=== PATIENT | male | born 1940 | race Caucasian/White ===

== ENCOUNTER 2022-08-09 17:15 | Inpatient (IN) ==
[2022-08-09] MEDS ORDERED: ACETAMINOPHEN 1,000 MG/100 ML VIAL IV STA (19:08)
[2022-08-09 19:30] LABS: Basophils # (auto) 0.04 K/uL (0-0.2); Basophils % (auto) 0.5 %; Hematocrit (blood only) 38.2 % (40.1-51.0); Immature Granulocytes # (auto) 0.03 K/uL (0.00-0.02); Immature Granulocytes % (auto) 0.4 %; Lymphocytes # (auto) 0.28 K/uL (1.2-3.4); Lymphocytes % (auto) 3.7 %; Mean Corpuscular Hemoglobin 35.2 pg (25.0-34.0); Mean Corpuscular Volume 103.5 fL (80.0-100.0); Mean Platelet Volume 10.6 fL (9.4-12.4); Monocytes # (auto) 0.58 K/uL (0.24-0.82); Monocytes % (auto) 7.7 %; Neutrophils # (auto) 6.62 K/uL (1.4-6.5); Neutrophils % (auto) 87.7 %; Platelet Count 133 K/uL (130-400); RDW Coefficient of Variation 12.8 % (11.5-14.5); RDW Standard Deviation 48.2 fL (36.4-46.3); Red Blood Count 3.69 M/uL (4.63-6.08); White Blood Count 7.55 K/ul (4.8-10.8)
[2022-08-09 19:42] LABS: INR 1.1 (0.9-1.1); Partial Thromboplastin Ratio 1.1; Partial Thromboplastin Time 29.1 Seconds (21.0-31.0); Prothrombin Time 11.9 Seconds (9.0-12.0)
[2022-08-09 19:43] LABS: Albumin Globulin Ratio 1.2 (0.9-2); Albumin Level 3.4 gm/dl (3.4-5.0); BUN Creatinine Ratio 18.5 (10-20); Bilirubin,Total 1.2 mg/dl (0.2-1.0); Calcium 9.5 mg/dl (8.5-10.1); Creatinine Clr Calc Pharmacy 54.4 ml/min; Est GFR (African American) 50.8 ml/min; Est GFR (Non-African American) 43.9 ml/min; Globulin 2.8 gm/dl (2.5-4.0); Magnesium 1.9 mg/dl (1.7-2.4); Potassium 4.3 mmol/L (3.5-5.1); Total Protein 6.2 gm/dl (6.0-8.3)
[2022-08-09 19:59] LABS: Appearance Urine Clear (Clear); Bacteria Urine Automated Negative (Negative); Bilirubin Urine Negative (Negative); Blood Urine 3+ (Negative); Color Urine Dark Yellow; Epithelial Cell Urine Auto >30 /lpf (0-5); Glucose Urine UA Negative (Negative); Ketones Urine Trace (Negative); Leukocyte Esterase Urine Trace (Negative); Nitrite Urine Negative (Negative); Protein Urine 4+ (Negative); RBC Urine Automated >30 /hpf (0-4); Urobilinogen Urine Negative (Negative)
--- NOTE | 2022-08-09 20:03 | CT Scan Report ---
CT head/brain wo con CLINICAL HISTORY: 82 years-old Male with confusion. Acutely altered mental status TECHNIQUE: Multiple axial CT images of the head were obtained without contrast. A dose lowering tech nique was utilized adhering to the principles of ALARA. CT DOSE: 767.83 mGy.cm COMPARISON: None. FINDINGS: No acute intracranial hemorrhage, midline shift, intracranial mass, hydrocephalus, territorial ischem ia or abnormal extra-axial collection. Age-related involutional changes with mild ex vacuo ventriculo megaly. White matter hypodensities suggest chronic microvascular ischemic disease. Cerebral vascular calcifications. Ill-defined 1.5 cm hypoattenuating focus is noted within the right frontal lobe coron a radiata on image 28. 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 Chronic lacunar infarct s of the left basal ganglia and cerebellar hemisphere. The calvarium is intact. 2.2 cm focus of polypoid mucosal thickening within the right maxillary sinu s. The mastoid air cells are clear. Prior bilateral lens repair. IMPRESSION: 1. No acute intracranial hemorrhage, midline shift or acute territorial infarct. 2. Involutional changes with chronic microvascular ischemic disease and chronic lacunar infarcts. 3. 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 4. Chronic right temporoparietal infarct. ACT 112: Negative or not required by law. The above report was generated using voice recognition software. It may contain grammatical, syntax o r spelling errors. Electronically signed by: Tin Smith M.D. 08/09/2022 8:00 PM
--- NOTE | 2022-08-09 20:14 | Emergency Department Note ---
History of Present Illness General Chief complaint: Illness Stated complaint: AMS Time Seen by Provider: 08/09/22 18:25 Source: patient, family and EMS Mode of arrival: EMS Limitations: no limitations History of Present Illness Provider complaint: Weakness, confusion, fever This is an 82-year-old male presents emergency department due to concern for confusion, weakness, possible aspiration per staff report to EMS. Patient does reside at a long-term care facility. Patient's son did present to bedside, and reports he does have history of vascular dementia and does seem slightly more confused compared to prior. Patient alert and answers questions appropriately at bedside. He denies any concern for pain or weakness. Patient does take a diuretic for lower extremity swelling, and states he feels thirsty. Patient denies any sense of feeling hot or cold although was noted to have a fever on arrival here. Staff was concerned for possible aspiration as patient was noted to have his head down over his food and seemed slower to arouse than normal. Son denies any recent changes in the patient's medications or any known illness going around the facility where he resides. Pt seen during a time of high acuity and national emergency pandemic while wearing PPE. Home Medications Medication Instructions Recorded Confirmed Type acetaminophen 325 mg tablet 650 mg PO Q4 PRN Fever Or Pain 08/09/22 08/09/22 History apixaban 5 mg tablet (Eliquis) 5 mg PO BID 08/09/22 08/09/22 History cholecalciferol (vitamin D3) 50 50 mcg PO DAILY 08/09/22 08/09/22 History mcg (2,000 unit) tablet (Vitamin D3) clopidogrel 75 mg tablet 75 mg PO DAILY 08/09/22 08/09/22 History fluoxetine 10 mg capsule 10 mg PO DAILY 08/09/22 08/09/22 History fluticasone propionate 50 1 spray intranasal BID 08/09/22 08/09/22 History mcg/actuation nasal spray,suspension furosemide 20 mg tablet 20 mg PO 3XWK 08/09/22 08/09/22 History furosemide 20 mg tablet 20 mg PO DAILY 08/09/22 08/09/22 History ketoconazole 2 % shampoo 1 applic topical 3XWK 08/09/22 08/09/22 History ketoconazole 2 % topical cream 1 applic topical BID PRN flares 08/09/22 08/09/22 History lisinopril 5 mg tablet 5 mg PO DAILY 08/09/22 08/09/22 History metoprolol succinate 25 mg 25 mg PO BID 08/09/22 08/09/22 History tablet,extended release 24 hr nitroglycerin 0.4 mg sublingual 0.4 mg sublingual UD PRN Chest Pain 08/09/22 08/09/22 History tablet rosuvastatin 10 mg tablet 10 mg PO HS 08/09/22 08/09/22 History spironolactone 100 mg tablet 100 mg PO DAILY 08/09/22 08/09/22 History Allergies Allergy/AdvReac Type Severity Reaction Status Date / Time No Known Allergies Allergy Unverified 08/09/22 22:43 Past Med/Surg History Social History Smoking Status: Never smoker Preferred Language: Tajik Feels Safe at Home: Yes Review of Systems A total of 10 systems reviewed and were otherwise negative All systems reviewed & are unremarkable except as noted in HPI & below Physical Exam Vital Signs Vital Signs - 24 hr 08/09/22 17:38 08/09/22 19:43 08/09/22 19:43 Temperature 38.2 C H Temperature Source Oral Pulse Rate 54 L Pulse Rate [Apical] Pulse Rate from SpO2 Sensor Pulse Rhythm [Apical] Pulse Strength Normal Respiratory Rate 20 Respiratory Effort / Characteristics Non-Labored Non-Labored Respiratory Depth Normal Normal Respiratory Pattern Regular Blood Pressure 120/60 Blood Pressure [Right Arm] Blood Pressure Mean 80 Blood Pressure Mean [Right Arm] Blood Pressure Position Lying Pulse Oximetry 95 98 Oxygen Delivery Method Room Air Room Air Sepsis Recent Fever Within 48 Hours Yes Sepsis New/Unexplained Change in Mental Status No Sepsis Action Taken by Nursing No Action Required 08/09/22 17:46 08/09/22 18:00 08/09/22 18:30 Temperature Temperature Source Pulse Rate 60 62 60 Pulse Rate [Apical] Pulse Rate from SpO2 Sensor 57 L 63 60 Pulse Rhythm [Apical] Pulse Strength Respiratory Rate 20 25 H 21 Respiratory Effort / Characteristics Respiratory Depth Respiratory Pattern Blood Pressure Blood Pressure [Right Arm] Blood Pressure Mean Blood Pressure Mean [Right Arm] Blood Pressure Position Pulse Oximetry 94 74 L 96 Oxygen Delivery Method Sepsis Recent Fever Within 48 Hours Sepsis New/Unexplained Change in Mental Status Sepsis Action Taken by Nursing 08/09/22 19:00 08/09/22 19:30 08/09/22 20:37 Temperature Temperature Source Pulse Rate 60 62 Pulse Rate [Apical] 60 Pulse Rate from SpO2 Sensor 61 Pulse Rhythm [Apical] Regular Pulse Strength Respiratory Rate 21 20 25 H Respiratory Effort / Characteristics Respiratory Depth Normal Respiratory Pattern Blood Pressure 122/64 Blood Pressure [Right Arm] 100/63 Blood Pressure Mean 83 Blood Pressure Mean [Right Arm] 75 Blood Pressure Position Pulse Oximetry 99 94 Oxygen Delivery Method Room Air Sepsis Recent Fever Within 48 Hours Sepsis New/Unexplained Change in Mental Status Sepsis Action Taken by Nursing 08/09/22 20:00 08/09/22 20:30 08/09/22 20:37 Temperature Temperature Source Pulse Rate 61 60 Pulse Rate [Apical] Pulse Rate from SpO2 Sensor 61 60 Pulse Rhythm [Apical] Pulse Strength Respiratory Rate 24 16 Respiratory Effort / Characteristics Respiratory Depth Respiratory Pattern Blood Pressure 100/63 Blood Pressure [Right Arm] Blood Pressure Mean 75 Blood Pressure Mean [Right Arm] Blood Pressure Position Pulse Oximetry 95 95 Oxygen Delivery Method Sepsis Recent Fever Within 48 Hours Sepsis New/Unexplained Change in Mental Status Sepsis Action Taken by Nursing 08/09/22 20:37 08/09/22 21:00 08/09/22 21:00 Temperature Temperature Source Pulse Rate 62 60 Pulse Rate [Apical] Pulse Rate from SpO2 Sensor 60 60 Pulse Rhythm [Apical] Pulse Strength Respiratory Rate 25 H 22 Respiratory Effort / Characteristics Respiratory Depth Respiratory Pattern Blood Pressure 97/62 L Blood Pressure [Right Arm] Blood Pressure Mean 73 Blood Pressure Mean [Right Arm] Blood Pressure Position Pulse Oximetry 92 92 Oxygen Delivery Method Sepsis Recent Fever Within 48 Hours Sepsis New/Unexplained Change in Mental Status Sepsis Action Taken by Nursing 08/09/22 21:30 08/09/22 21:31 08/09/22 21:31 Temperature Temperature Source Pulse Rate 64 Pulse Rate [Apical] Pulse Rate from SpO2 Sensor 60 64 Pulse Rhythm [Apical] Pulse Strength Respiratory Rate 23 24 Respiratory Effort / Characteristics Respiratory Depth Respiratory Pattern Blood Pressure 94/57 L Blood Pressure [Right Arm] Blood Pressure Mean 69 Blood Pressure Mean [Right Arm] Blood Pressure Position Pulse Oximetry 94 94 Oxygen Delivery Method Sepsis Recent Fever Within 48 Hours Sepsis New/Unexplained Change in Mental Status Sepsis Action Taken by Nursing 08/09/22 22:00 08/09/22 21:41 08/09/22 22:00 Temperature Temperature Source Pulse Rate 66 Pulse Rate [Apical] 63 Pulse Rate from SpO2 Sensor Pulse Rhythm [Apical] Regular Pulse Strength Respiratory Rate 19 24 Respiratory Effort / Characteristics Respiratory Depth Respiratory Pattern Blood Pressure 100/69 Blood Pressure [Right Arm] 111/60 Blood Pressure Mean 79 Blood Pressure Mean [Right Arm] 77 Blood Pressure Position Pulse Oximetry 94 Oxygen Delivery Method Sepsis Recent Fever Within 48 Hours Sepsis New/Unexplained Change in Mental Status Sepsis Action Taken by Nursing 08/09/22 22:32 08/09/22 23:01 08/09/22 23:07 Temperature Temperature Source Pulse Rate Pulse Rate [Apical] Pulse Rate from SpO2 Sensor 71 Pulse Rhythm [Apical] Pulse Strength Respiratory Rate Respiratory Effort / Characteristics Respiratory Depth Respiratory Pattern Blood Pressure 149/102 H 111/60 Blood Pressure [Right Arm] Blood Pressure Mean 117 77 Blood Pressure Mean [Right Arm] Blood Pressure Position Pulse Oximetry 96 Oxygen Delivery Method Sepsis Recent Fever Within 48 Hours Sepsis New/Unexplained Change in Mental Status Sepsis Action Taken by Nursing 08/09/22 23:30 08/09/22 23:32 08/09/22 23:32 Temperature Temperature Source Pulse Rate 66 62 Pulse Rate [Apical] Pulse Rate from SpO2 Sensor 65 62 Pulse Rhythm [Apical] Pulse Strength Respiratory Rate 26 H 19 Respiratory Effort / Characteristics Respiratory Depth Respiratory Pattern Blood Pressure 115/71 Blood Pressure [Right Arm] Blood Pressure Mean 85 Blood Pressure Mean [Right Arm] Blood Pressure Position Pulse Oximetry 97 97 Oxygen Delivery Method Sepsis Recent Fever Within 48 Hours Sepsis New/Unexplained Change in Mental Status Sepsis Action Taken by Nursing 08/10/22 00:00 08/10/22 00:00 08/10/22 00:30 Temperature Temperature Source Pulse Rate 62 72 Pulse Rate [Apical] Pulse Rate from SpO2 Sensor 62 72 Pulse Rhythm [Apical] Pulse Strength Respiratory Rate 20 13 Respiratory Effort / Characteristics Respiratory Depth Respiratory Pattern Blood Pressure 121/68 Blood Pressure [Right Arm] Blood Pressure Mean 85 Blood Pressure Mean [Right Arm] Blood Pressure Position Pulse Oximetry 95 98 Oxygen Delivery Method Sepsis Recent Fever Within 48 Hours Sepsis New/Unexplained Change in Mental Status Sepsis Action Taken by Nursing 08/10/22 01:00 08/10/22 01:01 08/10/22 01:01 Temperature Temperature Source Pulse Rate 60 62 Pulse Rate [Apical] Pulse Rate from SpO2 Sensor Pulse Rhythm [Apical] Pulse Strength Respiratory Rate 26 H 19 Respiratory Effort / Characteristics Respiratory Depth Respiratory Pattern Blood Pressure 120/63 Blood Pressure [Right Arm] Blood Pressure Mean 82 Blood Pressure Mean [Right Arm] Blood Pressure Position Pulse Oximetry Oxygen Delivery Method Sepsis Recent Fever Within 48 Hours Sepsis New/Unexplained Change in Mental Status Sepsis Action Taken by Nursing 08/10/22 01:30 Temperature Temperature Source Pulse Rate 68 Pulse Rate [Apical] Pulse Rate from SpO2 Sensor Pulse Rhythm [Apical] Pulse Strength Respiratory Rate 23 Respiratory Effort / Characteristics Respiratory Depth Respiratory Pattern Blood Pressure Blood Pressure [Right Arm] Blood Pressure Mean Blood Pressure Mean [Right Arm] Blood Pressure Position Pulse Oximetry Oxygen Delivery Method Sepsis Recent Fever Within 48 Hours Sepsis New/Unexplained Change in Mental Status Sepsis Action Taken by Nursing GENERAL: alert, well appearing, well nourished, no distress, non-toxic EYE EXAM: normal conjunctiva, PERRL and EOM's grossly intact OROPHARYNX: no exudate, no erythema, lips, buccal mucosa, and tongue normal and mucous membranes are moist NECK: supple, no nuchal rigidity, no adenopathy, non-tender LUNGS: Clear to auscultation. Normal chest wall mechanics, no w/r/r HEART: no murmurs, S1 normal and S2 normal ABDOMEN: abdomen soft, non-tender, normo-active bowel sounds, no masses, no rebound or guarding. BACK: Back is symmetrical on inspection and there is no deformity, no midline tenderness, no CVA tenderness. SKIN: no rashes and no bruising UPPER EXTREMITIES: upper extremities are grossly normal. FROM, nml pulses b/l. LOWER EXTREMITIES: 3+ b/l pitting edema. FROM, nml pulses b/l. NEURO EXAM: Normal sensorium, cranial nerves II-XII grossly intact, normal speech, no gross weakness of arms, no gross weakness of legs. Gross sensation intact. Course Administered Medications Discontinued Medications Acetaminophen (Ofirmev) 1,000 mg in 100 mls @ 400 mls/hr IV NOW STA Stop: 08/09/22 19:22 Last Infusion: 08/09/22 20:21 Dose: 0 mls/hr Documented By: Admin: 08/09/22 19:59 Dose: 400 mls/hr Documented By: DL Sodium Chloride (Nss 1000ml) 250 mls @ 999 mls/hr IV .Q16M ONE Stop: 08/09/22 21:52 Last Infusion: 08/09/22 23:26 Dose: 0 mls/hr Documented By: Admin: 08/09/22 23:09 Dose: 999 mls/hr Documented By: DL Cefepime HCl (Maxipime) 2,000 mg in 20 mls @ 5 mls/min IV NOW STA; Protocol Stop: 08/10/22 00:56 Last Admin: 08/10/22 01:04 Dose: 5 mls/min Documented By: DL Medical Decision Making Differential Diagnosis Differential Diagnosis includes but is not limited to dehydration, stroke, anemia, hypoglycemia, hyponatremia, hypernatremia, urinary tract infection, pneumonia, bronchitis, sepsis, gastroenteritis, additional abdominal pathology, metabolic abnormalities and infections. Medical Records Attestation: I reviewed the patient's medical records. Home Medications Current Medication List: was personally reviewed by me Laboratory Data Attestation: I reviewed the patient's lab results. Result diagrams: 08/09/22 17:40 08/09/22 17:40 Lab Results 08/09/22 08/09/22 08/09/22 Range/Units 17:40 17:40 17:40 WBC 7.55 (4.8-10.8) K/ul RBC 3.69 L (4.63-6.08) M/uL Hgb 13.0 L (14.0-18.0) g/dl Hct 38.2 L (40.1-51.0) % MCV 103.5 H (80.0-100.0) fL MCH 35.2 H (25.0-34.0) pg MCHC 34.0 (32.0-36.0) g/dL RDW Std Deviation 48.2 H (36.4-46.3) fL RDW Coeff of Tucker 12.8 (11.5-14.5) % Plt Count 133 (130-400) K/uL MPV 10.6 (9.4-12.4) fL Immature Gran % (Auto) 0.4 % Neut % (Auto) 87.7 % Lymph % (Auto) 3.7 % [place] % (Auto) 7.7 % Eos % (Auto) 0.0 % Baso % (Auto) 0.5 % Neut # (Auto) 6.62 H (1.4-6.5) K/uL Lymph # (Auto) 0.28 L (1.2-3.4) K/uL [place] # (Auto) 0.58 (0.24-0.82) K/uL Eos # (Auto) 0.00 (0-0.50) K/uL Baso # (Auto) 0.04 (0-0.2) K/uL Immature Gran # (Auto) 0.03 H (0.00-0.02) K/uL PT 11.9 (9.0-12.0) Seconds INR 1.1 (0.9-1.1) APTT 29.1 (21.0-31.0) Seconds PTT Ratio 1.1 POC pH (7.35-7.45) POC pCO2 (35-46) mmHg POC pO2 (80-95) mmHg POC HCO3 (19-24) eveline/L POC Total CO2 (24-31) mmol/L POC Base Excess (-9-1.8) eveline/L POC ABG O2 Sat (90-95) % Sodium 137 (136-145) mmol/L Potassium 4.3 (3.5-5.1) mmol/L Chloride 106 (98-107) mmol/L Carbon Dioxide 25 (21-32) mmol/L Anion Gap 6 (3-11) BUN 27 H (6-23) mg/dl Creatinine 1.46 H (0.6-1.4) mg/dl Est Cr Clr Drug Dosing 54.4 ml/min Est GFR ( Amer) 50.8 ml/min Est GFR (Non-Af Amer) 43.9 ml/min BUN/Creatinine Ratio 18.5 (10-20) Glucose 105 H (70-99(Fasting)) mg/dl Lactate (0.4-2.0) mmol/L Calcium 9.5 (8.5-10.1) mg/dl Magnesium 1.9 (1.7-2.4) mg/dl Total Bilirubin 1.2 H (0.2-1.0) mg/dl AST 24 (13-39) U/L ALT 20 (7-52) U/L Alkaline Phosphatase 85 (34-104) U/L Total Protein 6.2 (6.0-8.3) gm/dl Albumin 3.4 (3.4-5.0) gm/dl Globulin 2.8 (2.5-4.0) gm/dl Albumin/Globulin Ratio 1.2 (0.9-2) Procalcitonin (0-0.5) ng/ml Urine Color Urine Appearance (Clear) Urine pH (4.5-7.5) Ur Specific [place] (1.000-1.030) Urine Protein (Negative) Urine Glucose (UA) (Negative) Urine Ketones (Negative) Urine Blood (Negative) Urine Nitrite (Negative) Urine Bilirubin (Negative) Urine Urobilinogen (Negative) Ur Leukocyte Esterase (Negative) Urine WBC (Auto) (0-5) /hpf Urine RBC (Auto) (0-4) /hpf U Hyaline Cast (Auto) (0-5) /lpf U Epithel Cells (Auto) (0-5) /lpf Urine Bacteria (Auto) (Negative) Ur Renal Epithelial Cell Urine Yeast (None Prsent) Adenovirus (PCR) (NotDetected) B. pertussis DNA (PCR) (NotDetected) B.parapertussis DNA PCR (NotDetected) C. pneumoniae DNA (PCR) (NotDetected) Coronavirus OC43 (PCR) (NotDetected) Coronavirus HKU1 (PCR) (NotDetected) Coronavirus 229E (PCR) (NotDetected) SARS-CoV-2 (PCR) (NotDetected) Coronavirus NL63 (PCR) (NotDetected) Human Metapneumovir PCR (NotDetected) Influenza Type A (PCR) (NotDetected) Influenza Type B (PCR) (NotDetected) M. pneumoniae (PCR) (NotDetected) Parainfluenza 1 (PCR) (NotDetected) Parainfluenza 2 (PCR) (NotDetected) Parainfluenza 3 (PCR) (NotDetected) Parainfluenza 4 (PCR) (NotDetected) RSV (PCR) (NotDetected) Entero/Rhino (PCR) (NotDetected) 08/09/22 08/09/22 08/09/22 Range/Units 17:40 18:13 19:18 WBC (4.8-10.8) K/ul RBC (4.63-6.08) M/uL Hgb (14.0-18.0) g/dl Hct (40.1-51.0) % MCV (80.0-100.0) fL MCH (25.0-34.0) pg MCHC (32.0-36.0) g/dL RDW Std Deviation (36.4-46.3) fL RDW Coeff of Tucker (11.5-14.5) % Plt Count (130-400) K/uL MPV (9.4-12.4) fL Immature Gran % (Auto) % Neut % (Auto) % Lymph % (Auto) % [place] % (Auto) % Eos % (Auto) % Baso % (Auto) % Neut # (Auto) (1.4-6.5) K/uL Lymph # (Auto) (1.2-3.4) K/uL [place] # (Auto) (0.24-0.82) K/uL Eos # (Auto) (0-0.50) K/uL Baso # (Auto) (0-0.2) K/uL Immature Gran # (Auto) (0.00-0.02) K/uL PT (9.0-12.0) Seconds INR (0.9-1.1) APTT (21.0-31.0) Seconds PTT Ratio POC pH (7.35-7.45) POC pCO2 (35-46) mmHg POC pO2 (80-95) mmHg POC HCO3 (19-24) eveline/L POC Total CO2 (24-31) mmol/L POC Base Excess (-9-1.8) veeline/L POC ABG O2 Sat (90-95) % Sodium (136-145) mmol/L Potassium (3.5-5.1) mmol/L Chloride (98-107) mmol/L Carbon Dioxide (21-32) mmol/L Anion Gap (3-11) BUN (6-23) mg/dl Creatinine (0.6-1.4) mg/dl Est Cr Clr Drug Dosing ml/min Est GFR ( Amer) ml/min Est GFR (Non-Af Amer) ml/min BUN/Creatinine Ratio (10-20) Glucose (70-99(Fasting)) mg/dl Lactate 1.6 (0.4-2.0) mmol/L Calcium (8.5-10.1) mg/dl Magnesium (1.7-2.4) mg/dl Total Bilirubin (0.2-1.0) mg/dl AST (13-39) U/L ALT (7-52) U/L Alkaline Phosphatase (34-104) U/L Total Protein (6.0-8.3) gm/dl Albumin (3.4-5.0) gm/dl Globulin (2.5-4.0) gm/dl Albumin/Globulin Ratio (0.9-2) Procalcitonin 0.07 (0-0.5) ng/ml Urine Color Urine Appearance (Clear) Urine pH (4.5-7.5) Ur Specific [place] (1.000-1.030) Urine Protein (Negative) Urine Glucose (UA) (Negative) Urine Ketones (Negative) Urine Blood (Negative) Urine Nitrite (Negative) Urine Bilirubin (Negative) Urine Urobilinogen (Negative) Ur Leukocyte Esterase (Negative) Urine WBC (Auto) (0-5) /hpf Urine RBC (Auto) (0-4) /hpf U Hyaline Cast (Auto) (0-5) /lpf U Epithel Cells (Auto) (0-5) /lpf Urine Bacteria (Auto) (Negative) Ur Renal Epithelial Cell Urine Yeast (None Prsent) Adenovirus (PCR) Not Detected (NotDetected) B. pertussis DNA (PCR) Not Detected (NotDetected) B.parapertussis DNA PCR Not Detected (NotDetected) C. pneumoniae DNA (PCR) Not Detected (NotDetected) Coronavirus OC43 (PCR) Not Detected (NotDetected) Coronavirus HKU1 (PCR) Not Detected (NotDetected) Coronavirus 229E (PCR) Not Detected (NotDetected) SARS-CoV-2 (PCR) DETECTED A* (NotDetected) Coronavirus NL63 (PCR) Not Detected (NotDetected) Human Metapneumovir PCR Not Detected (NotDetected) Influenza Type A (PCR) Not Detected (NotDetected) Influenza Type B (PCR) Not Detected (NotDetected) M. pneumoniae (PCR) Not Detected (NotDetected) Parainfluenza 1 (PCR) Not Detected (NotDetected) Parainfluenza 2 (PCR) Not Detected (NotDetected) Parainfluenza 3 (PCR) Not Detected (NotDetected) Parainfluenza 4 (PCR) Not Detected (NotDetected) RSV (PCR) Not Detected (NotDetected) Entero/Rhino (PCR) Not Detected (NotDetected) 08/09/22 08/10/22 Range/Units 19:41 00:50 WBC (4.8-10.8) K/ul RBC (4.63-6.08) M/uL Hgb (14.0-18.0) g/dl Hct (40.1-51.0) % MCV (80.0-100.0) fL MCH (25.0-34.0) pg MCHC (32.0-36.0) g/dL RDW Std Deviation (36.4-46.3) fL RDW Coeff of Tucker (11.5-14.5) % Plt Count (130-400) K/uL MPV (9.4-12.4) fL Immature Gran % (Auto) % Neut % (Auto) % Lymph % (Auto) % [place] % (Auto) % Eos % (Auto) % Baso % (Auto) % Neut # (Auto) (1.4-6.5) K/uL Lymph # (Auto) (1.2-3.4) K/uL [place] # (Auto) (0.24-0.82) K/uL Eos # (Auto) (0-0.50) K/uL Baso # (Auto) (0-0.2) K/uL Immature Gran # (Auto) (0.00-0.02) K/uL PT (9.0-12.0) Seconds INR (0.9-1.1) APTT (21.0-31.0) Seconds PTT Ratio POC pH 7.44 (7.35-7.45) POC pCO2 31 L (35-46) mmHg POC pO2 83 (80-95) mmHg POC HCO3 21 (19-24) eveline/L POC Total CO2 22 L (24-31) mmol/L POC Base Excess -3.0 (-9-1.8) eveline/L POC ABG O2 Sat 97.0 H (90-95) % Sodium (136-145) mmol/L Potassium (3.5-5.1) mmol/L Chloride (98-107) mmol/L Carbon Dioxide (21-32) mmol/L Anion Gap (3-11) BUN (6-23) mg/dl Creatinine (0.6-1.4) mg/dl Est Cr Clr Drug Dosing ml/min Est GFR ( Amer) ml/min Est GFR (Non-Af Amer) ml/min BUN/Creatinine Ratio (10-20) Glucose (70-99(Fasting)) mg/dl Lactate (0.4-2.0) mmol/L Calcium (8.5-10.1) mg/dl Magnesium (1.7-2.4) mg/dl Total Bilirubin (0.2-1.0) mg/dl AST (13-39) U/L ALT (7-52) U/L Alkaline Phosphatase (34-104) U/L Total Protein (6.0-8.3) gm/dl Albumin (3.4-5.0) gm/dl Globulin (2.5-4.0) gm/dl Albumin/Globulin Ratio (0.9-2) Procalcitonin (0-0.5) ng/ml Urine Color Dark Yellow Urine Appearance Clear (Clear) Urine pH 6.0 (4.5-7.5) Ur Specific [place] 1.030 (1.000-1.030) Urine Protein 4+ H (Negative) Urine Glucose (UA) Negative (Negative) Urine Ketones Trace H (Negative) Urine Blood 3+ H (Negative) Urine Nitrite Negative (Negative) Urine Bilirubin Negative (Negative) Urine Urobilinogen Negative (Negative) Ur Leukocyte Esterase Trace H (Negative) Urine WBC (Auto) 1-5 (0-5) /hpf Urine RBC (Auto) >30 H (0-4) /hpf U Hyaline Cast (Auto) 10-30 H (0-5) /lpf U Epithel Cells (Auto) >30 H (0-5) /lpf Urine Bacteria (Auto) Negative (Negative) Ur Renal Epithelial Cell Not Reportable Urine Yeast Budding A (None Prsent) Adenovirus (PCR) (NotDetected) B. pertussis DNA (PCR) (NotDetected) B.parapertussis DNA PCR (NotDetected) C. pneumoniae DNA (PCR) (NotDetected) Coronavirus OC43 (PCR) (NotDetected) Coronavirus HKU1 (PCR) (NotDetected) Coronavirus 229E (PCR) (NotDetected) SARS-CoV-2 (PCR) (NotDetected) Coronavirus NL63 (PCR) (NotDetected) Human Metapneumovir PCR (NotDetected) Influenza Type A (PCR) (NotDetected) Influenza Type B (PCR) (NotDetected) M. pneumoniae (PCR) (NotDetected) Parainfluenza 1 (PCR) (NotDetected) Parainfluenza 2 (PCR) (NotDetected) Parainfluenza 3 (PCR) (NotDetected) Parainfluenza 4 (PCR) (NotDetected) RSV (PCR) (NotDetected) Entero/Rhino (PCR) (NotDetected) Imaging Data Radiologist's Impression: Chest X-Ray 08/09/22 19:03 XR chest 1V portable HISTORY: 82 years-old Male SEPSIS acute sepsis COMPARISON: None TECHNIQUE: AP view of the chest FINDINGS: Cardiac silhouette is enlarged. Left subclavian pacer/AICD. No pneumothorax, pleural effusion or overt pulmonary edema. Mild interstitial coarsening of the lung bases. Degenerative changes of the shoulders and spine. IMPRESSION: 1. Cardiomegaly without overt pulmonary edema. 2. Mild nonspecific interstitial coarsening of the lung bases favoring atelectasis. A mild pneumonitis could appear similarly. ACT 112: Negative or not required by law. The above report was generated using voice recognition software. It may contain grammatical, syntax or spelling errors. Electronically signed by: Tin Smith M.D. 08/09/2022 8:[address] 08/09/22 19:04 CT head/brain wo con CLINICAL HISTORY: 82 years-old Male with confusion. Acutely altered mental status TECHNIQUE: Multiple axial CT images of the head were obtained without contrast. A dose lowering technique was utilized adhering to the principles of ALARA. CT DOSE: 767.83 mGy.cm COMPARISON: None. FINDINGS: No acute intracranial hemorrhage, midline shift, intracranial mass, hydrocephalus, territorial ischemia or abnormal extra-axial collection. Age- related involutional changes with mild ex vacuo ventriculomegaly. White matter hypodensities suggest chronic microvascular ischemic disease. Cerebral vascular calcifications. Ill-defined 1.5 cm hypoattenuating focus is noted within the right frontal lobe pittman radiata on image 28. 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 Chronic lacunar infarcts of the left basal ganglia and cerebellar hemisphere. The calvarium is intact. 2.2 cm focus of polypoid mucosal thickening within the right maxillary sinus. The mastoid air cells are clear. Prior bilateral lens repair. IMPRESSION: 1. No acute intracranial hemorrhage, midline shift or acute territorial infarct. 2. Involutional changes with chronic microvascular ischemic disease and chronic lacunar infarcts. 3. 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 4. Chronic right temporoparietal infarct. ACT 112: Negative or not required by law. The above report was generated using voice recognition software. It may contain grammatical, syntax or spelling errors. Electronically signed by: Tin Smith M.D. 08/09/2022 8:00 PM Abdomen/Pelvis CT 08/09/22 21:[address] WITHOUT CONTRAST CT DOSE: 922.40 mGy.cm HISTORY: Acute hematuria hematuria TECHNIQUE: Multiaxial CT images of the abdomen and pelvis were performed without contrast. A dose lowering technique was utilized adhering to the principles of ALARA. COMPARISON STUDY: Chest radiograph of same day FINDINGS: Cardiomegaly with partially imaged pacer leads and extensive coronary artery calcifications. Mural fibrofatty changes with calcifications of the left ventricle apical and septal clark compatible with prior infarct. Trace pleural effusions with bibasilar densities favoring atelectasis. No pneumatosis or pneumoperitoneum. Gynecomastia. The unenhanced spleen, mildly atrophic pancreas and adrenal glands are unremarkable. The gallbladder and liver appear unremarkable. 4 mm nonobstructing calculus of the superior pole left kidney. 1.9 cm cyst of the superior pole right kidney. Punctate nonobstructing calculus of the inferior pole right kidney. No ureteral calculi or hydronephrosis identified. Mild prostamegaly. Mild urinary bladder wall thickening with partial distention. Atherosclerosis of aorta. 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 No lymphadenopathy. No bowel obstruction or bowel wall thickening. Colonic diverticulosis. The appendix is not definitively seen. Calcifications of the right rectus femoris muscle. Degenerative changes of the spine, pelvis and hips. IMPRESSION: 1. Nonobstructing bilateral nephrolithiasis. No ureteral calculi or hydronephrosis. 2. No bowel obstruction or bowel wall thickening. 3. 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 No rupture. 4. Prostamegaly with findings suggestive of chronic bladder outlet obstruction. 5. Colonic diverticulosis. 6. Additional findings as above. ACT 112: Negative or not required by law. The above report was generated using voice recognition software. It may contain grammatical, syntax or spelling errors. Electronically signed by: Tin Smith M.D. 08/09/2022 10:13 PM ECG Data Attestation: I personally reviewed and interpreted this ECG as follows: Indication: + weakness Rate (beats per minute): 64 Rhythm: + other ECG Intervals/blocks: + IVCD and + Prolonged QT ECG [place]: + Left axis deviation ECG ST segments: + Nonspecific ST abnormalities Additional Comments: paced MDM Narrative An order was placed for continuous cardiac monitoring. The monitor shows a rate of _66_ with _paced_ rhythm. This is an 82-year-old male presents emergency department via EMS from his facility due to concern for increased confusion, weakness, possible aspiration. Patient had no respiratory distress although did have a fever on arrival. Patient did have slight cough that son notes has been present over the last se veral days. Patient denied any pain or difficulty breathing. A sepsis evaluation was started due to advanced age, comorbidities, and fever on arrival. Patient found to be positive for COVID. Chest x-ray without any significant changes. Patient was not hypoxic here. No evidence of overt aspiration. Patient did have lower extremity edema which she does take a diuretic for. Head CT otherwise unremarkable. Results discussed with patient and son. Hematuria noted on UA without obvious UTI. Patient sent for CT of the abdomen and pelvis as a precaution to rule out any other acute renal issues. This was unremarkable. Case discussed with hospitalist for additional evaluation and management. No evidence for overt CHF. Son states patient's lower extremity edema is longstanding. Impression & Plan Altered mental status, COVID-19, Generalized weakness, Hematuria, Localized swelling of both lower extremities Discharge Plan Visit Data Chief Complaint: Illness Stated Complaint: AMS ED Provider: Inez Espinal Discharge Problem: Altered mental status, COVID-19, Generalized weakness, Hematuria, Localized swelling of both lower extremities Forms Stand Alone Forms: My [facility] Codewise Prescriptions Prescriptions: No Action clopidogrel 75 mg tablet 75 mg PO DAILY fluoxetine 10 mg capsule 10 mg PO DAILY lisinopril 5 mg tablet 5 mg PO DAILY fluticasone propionate 50 mcg/actuation spray,suspension 1 spray INTRANASAL BID Eliquis 5 mg tablet 5 mg PO BID nitroglycerin 0.4 mg tablet, sublingual 0.4 mg sublingual UD PRN (Reason: Chest Pain) Rx Instructions: 1 tab under tongue every 5 min for 3 doses as needed for chest pain,if no relief call furosemide 20 mg tablet 20 mg PO DAILY furosemide 20 mg tablet 20 mg PO 3XWK Rx Instructions: take in addition to routine dose ketoconazole 2 % cream 1 applic TOPICAL BID PRN (Reason: flares) Rx Instructions: apply to behind ears as needed for seborrheic dernatitis flares acetaminophen 325 mg Tablet 650 mg PO Q4 MDD 3g PRN (Reason: Fever Or Pain) ketoconazole 2 % shampoo 1 applic TOPICAL 3XWK Rx Instructions: apply to scalp and behind ears...leave on for 3-5 minutes before rinsing spironolactone 100 mg tablet 100 mg PO DAILY metoprolol succinate 25 mg tablet extended release 24 hr 25 mg PO BID rosuvastatin 10 mg tablet 10 mg PO HS cholecalciferol (vitamin D3) [Vitamin D3] 50 mcg (2,000 unit) Tablet 50 mcg PO DAILY Referrals Referrals: Cory Jensen [Primary Care Provider] -
--- NOTE | 2022-08-09 20:16 | XRay Report ---
XR chest 1V portable HISTORY: 82 years-old Male SEPSIS acute sepsis COMPARISON: None TECHNIQUE: AP view of the chest FINDINGS: Cardiac silhouette is enlarged. Left subclavian pacer/AICD. No pneumothorax, pleural effusion or over t pulmonary edema. Mild interstitial coarsening of the lung bases. Degenerative changes of the should ers and spine. IMPRESSION: 1. Cardiomegaly without overt pulmonary edema. 2. Mild nonspecific interstitial coarsening of the lung bases favoring atelectasis. A mild pneumoniti s could appear similarly. ACT 112: Negative or not required by law. The above report was generated using voice recognition software. It may contain grammatical, syntax o r spelling errors. Electronically signed by: Tin Smith M.D. 08/09/2022 8:15 PM
[2022-08-09 20:39] LABS: Adenovirus PCR Not Detected (NotDetected); Bordetella parapertussis PCR Not Detected (NotDetected); Bordetella pertussis PCR Not Detected (NotDetected); Chlamydia pneumoniae PCR Not Detected (NotDetected); Coronavirus 229E PCR Not Detected (NotDetected); Coronavirus HKU1 PCR Not Detected (NotDetected); Coronavirus NL63 PCR Not Detected (NotDetected); Coronavirus OC43PCR Not Detected (NotDetected); Human Metapneumovirus PCR Not Detected (NotDetected); Influenza A PCR Not Detected (NotDetected); Influenza B PCR Not Detected (NotDetected); Mycoplasma pneumoniae PCR Not Detected (NotDetected); Parainfluenza Virus 1 PCR Not Detected (NotDetected); Parainfluenza Virus 2 PCR Not Detected (NotDetected); Parainfluenza Virus 3 PCR Not Detected (NotDetected); Parainfluenza Virus 4 PCR Not Detected (NotDetected); Respiratory Syncytial VirusPCR Not Detected (NotDetected); Rhinovirus/Enterovirus PCR Not Detected (NotDetected)
[2022-08-09 20:40] LABS: Coronavirus CoV-2 (COVID19)PCR DETECTED (NotDetected)
[2022-08-09] MEDS ORDERED: SODIUM CHLORIDE 0.9% 1000ML 250 ML IV ONE (21:37)
--- NOTE | 2022-08-09 22:15 | CT Scan Report ---
ABDOMEN AND PELVIS CT WITHOUT CONTRAST CT DOSE: 922.40 mGy.cm HISTORY: Acute hematuria hematuria TECHNIQUE: Multiaxial CT images of the abdomen and pelvis were performed without contrast. A dose lo wering technique was utilized adhering to the principles of ALARA. COMPARISON STUDY: Chest radiograph of same day FINDINGS: Cardiomegaly with partially imaged pacer leads and extensive coronary artery calcifications. Mural fi brofatty changes with calcifications of the left ventricle apical and septal clark compatible with pr ior infarct. Trace pleural effusions with bibasilar densities favoring atelectasis. No pneumatosis or pneumoperitoneum. Gynecomastia. The unenhanced spleen, mildly atrophic pancreas and adrenal glands a re unremarkable. The gallbladder and liver appear unremarkable. 4 mm nonobstructing calculus of the superior pole left kidney. 1.9 cm cyst of the superior pole right kidney. Punctate nonobstructing calculus of the inferior pole right kidney. No ureteral calculi or h ydronephrosis identified. Mild prostamegaly. Mild urinary bladder wall thickening with partial disten tion. Atherosclerosis of aorta. Fusiform aneurysmal dilation of the distal infrarenal abdominal aorta , 4.5 x 4.1 cm without rupture. No lymphadenopathy. No bowel obstruction or bowel wall thickening. Colonic diverticulosis. The appendix is not definitive ly seen. Calcifications of the right rectus femoris muscle. Degenerative changes of the spine, pelvis and hips. IMPRESSION: 1. Nonobstructing bilateral nephrolithiasis. No ureteral calculi or hydronephrosis. 2. No bowel obstruction or bowel wall thickening. 3. 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 No r upture. 4. Prostamegaly with findings suggestive of chronic bladder outlet obstruction. 5. Colonic diverticulosis. 6. Additional findings as above. ACT 112: Negative or not required by law. The above report was generated using voice recognition software. It may contain grammatical, syntax o r spelling errors. Electronically signed by: Tin Smith M.D. 08/09/2022 10:13 PM
[2022-08-09] MEDS ORDERED: SODIUM CHLORIDE 0.9% 1000ML 1,000 ML IV ONE (23:55)
[2022-08-10] MEDS ORDERED: CEFEPIME 2,000 MG/20 ML VIAL IV STA (00:53)
--- NOTE | 2022-08-10 00:56 | History & Physical Report ---
Date of Service August 10, 2022 Assessment & Plan (1) Encephalopathy: Plan: History dementia multifactorial : COVID-19 pneumonia with superimposed bacterial infection, no overt sepsis for now Complicated UTI, history of BPH Transient hypoxemia COVID-pneumonia versus pulse oximeter issue hx CAD status post stent/CVA A. fib status post PPM paced rhythm on Eliquis hypertension, BP on the lower side ARF secondary to illness Anemia ? Secondary to hematuria in the setting of NOAC/antiplatelet Rx hyperlipidemia on statin Rx Hyperglycemia rule out DM mood disorder at baseline Medical telemetry Doxycycline for complicated bronchitis Urine CS, Cefepime Baseline ABG, Decadron for severe COVID-19 pneumonia warranted if true hypoxemia found on ABG PO2 Monitor creatinine response to IVF, appropriate to hold home diuretic, FARIHA inhibitor for now until creatinine back to baseline Follow H&H, transfuse PRBC if hemoglobin less than 8 and or for symptomatic anemia, appropriate to hold antiplatelet Rx and Eliquis until hemoglobin stable Check hemoglobin A1c DVT prophylaxis. SCDs while Eliquis on hold Re: Hematuria causing anemia DNR Patient son requesting updates providers. Janelle Luis Woodrow, contact #[phone]. Text document was generated using [employer] voice recognition software. It may contain grammatical or spelling errors. Kindly contact undersigned for clarification of any documentation item in question. History of Present Illness Chief Complaint: Confusion Primary Care Provider: Cory Alcocer/Dr. Carey History obtained from patient, family, and records. Patient is a fair historian. Medical history significant for CAD status post stent, CVA, A. fib status post PPM on Eliquis, hypertension, hyperlipidemia, mood disorder, dementia. Patient moved from [place], [place] to a local [facility] last October 2021 to be close to his son. 3 days history of junky cough symptoms as per patient. No chest pain, no SOB. Not sure about sick contacts at [facility]. Patient completed COVID-19 vaccination. Patient noted to be increasingly weak. Concern for aspiration as patient noted to have food on his chest as per [facility] account. Patient denies aspiration. SBP noted to be 80s at [facility]. Patient noted to be increasingly confused. Patient brought to the ER for evaluation. Transient O2 sats of 70s on room air upon arrival at the ER attributed by staff to sensor issues. Some improvement after IV fluids administered at the ER. Gross hematuria noted at the ER. Patient denies abdominal pain/dysuria/flank pain symptoms. 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 Allergies Allergy/AdvReac Type Severity Reaction Status Date / Time No Known Allergies Allergy Unverified 08/09/22 22:43 Home Medications Medication Instructions Recorded Confirmed Type acetaminophen 325 mg tablet 650 mg PO Q4 PRN Fever Or Pain 08/09/22 08/09/22 History apixaban 5 mg tablet (Eliquis) 5 mg PO BID 08/09/22 08/09/22 History cholecalciferol (vitamin D3) 50 50 mcg PO DAILY 08/09/22 08/09/22 History mcg (2,000 unit) tablet (Vitamin D3) clopidogrel 75 mg tablet 75 mg PO DAILY 08/09/22 08/09/22 History fluoxetine 10 mg capsule 10 mg PO DAILY 08/09/22 08/09/22 History fluticasone propionate 50 1 spray intranasal BID 08/09/22 08/09/22 History mcg/actuation nasal spray,suspension furosemide 20 mg tablet 20 mg PO 3XWK 08/09/22 08/09/22 History furosemide 20 mg tablet 20 mg PO DAILY 08/09/22 08/09/22 History ketoconazole 2 % shampoo 1 applic topical 3XWK 08/09/22 08/09/22 History ketoconazole 2 % topical cream 1 applic topical BID PRN flares 08/09/22 08/09/22 History lisinopril 5 mg tablet 5 mg PO DAILY 08/09/22 08/09/22 History metoprolol succinate 25 mg 25 mg PO BID 08/09/22 08/09/22 History tablet,extended release 24 hr nitroglycerin 0.4 mg sublingual 0.4 mg sublingual UD PRN Chest Pain 08/09/22 08/09/22 History tablet rosuvastatin 10 mg tablet 10 mg PO HS 08/09/22 08/09/22 History spironolactone 100 mg tablet 100 mg PO DAILY 08/09/22 08/09/22 History Past Med/Surg History Social History Smoking Status: Never smoker Hx Alcohol Use: No Hx Substance Use: No Preferred Language: Frisian Communication Ability: Effective Senior [employer] Developer Required: No Beliefs That Will Affect Care: None Current Living Situation: Jail Current Living Situation Comment: [facility] Feels Safe at Home: Yes Safety Concerns: Feels Safe At This Time Assistive Devices: Cane, Denture - Upper and Denture - Lower Review of Systems Review of Systems: As per HPI, all other systems reviewed and negative Physical Exam Physical Exam: GENERAL: Comfortable, obese, pleasant, oriented to year and day, no respiratory distress SKIN: Normal color,, warm HEENT: Pale palpebral conjunctivae, no ptosis, dry buccal mucosa NECK : Supple, short neck, no tenderness CHEST : Decreased breath sounds, no tenderness HEART : RRR, apical systolic murmur ABDOMEN: Some distention, nontender EXTREMITIES : Bilateral LE swelling, no LE tenderness, no other conspicuous deformities noted NEUROLOGIC : Coherent, no facial asymmetry, gait and stance not assessed Results & Data Results & Data ([facility]) Vital Signs (Past 12 Hours) Vital Signs Temp Pulse Pulse Resp BP BP Pulse Ox 08/09/22 22:00 63 19 111/60 94 08/09/22 21:31 64 24 94 08/09/22 21:31 94/57 L 08/09/22 21:30 23 94 08/09/22 21:00 60 22 92 08/09/22 21:00 97/62 L 08/09/22 20:37 62 25 H 92 08/09/22 20:37 100/63 08/09/22 20:30 60 16 95 08/09/22 20:00 61 24 95 08/09/22 20:37 60 25 H 100/63 94 08/09/22 19:30 62 20 99 08/09/22 19:00 60 21 122/64 08/09/22 18:30 60 21 96 08/09/22 18:00 62 25 H 74 L 08/09/22 17:46 60 20 94 08/09/22 19:43 98 08/09/22 17:38 38.2 C H 54 L 20 120/60 95 O2 Del Method 08/09/22 22:00 08/09/22 21:31 08/09/22 21:31 08/09/22 21:30 08/09/22 21:00 08/09/22 21:00 08/09/22 20:37 08/09/22 20:37 08/09/22 20:30 08/09/22 20:00 08/09/22 20:37 Room Air 08/09/22 19:30 08/09/22 19:00 08/09/22 18:30 08/09/22 18:00 08/09/22 17:46 08/09/22 19:43 Room Air 08/09/22 17:38 Room Air Laboratory Results Laboratory Results WBC 7.55 K/ul (4.8-10.8) 08/09/22 17:40 RBC 3.69 M/uL (4.63-6.08) L 08/09/22 17:40 Hgb 13.0 g/dl (14.0-18.0) L 08/09/22 17:40 Hct 38.2 % (40.1-51.0) L 08/09/22 17:40 MCV 103.5 fL (80.0-100.0) H 08/09/22 17:40 MCH 35.2 pg (25.0-34.0) H 08/09/22 17:40 MCHC 34.0 g/dL (32.0-36.0) 08/09/22 17:40 RDW Std Deviation 48.2 fL (36.4-46.3) H 08/09/22 17:40 RDW Coeff of Tucker 12.8 % (11.5-14.5) 08/09/22 17:40 Plt Count 133 K/uL (130-400) 08/09/22 17:40 MPV 10.6 fL (9.4-12.4) 08/09/22 17:40 Immature Gran % (Auto) 0.4 % 08/09/22 17:40 Neut % (Auto) 87.7 % 08/09/22 17:40 Lymph % (Auto) 3.7 % 08/09/22 17:40 [place] % (Auto) 7.7 % 08/09/22 17:40 Eos % (Auto) 0.0 % 08/09/22 17:40 Baso % (Auto) 0.5 % 08/09/22 17:40 Neut # (Auto) 6.62 K/uL (1.4-6.5) H 08/09/22 17:40 Lymph # (Auto) 0.28 K/uL (1.2-3.4) L 08/09/22 17:40 [place] # (Auto) 0.58 K/uL (0.24-0.82) 08/09/22 17:40 Eos # (Auto) 0.00 K/uL (0-0.50) 08/09/22 17:40 Baso # (Auto) 0.04 K/uL (0-0.2) 08/09/22 17:40 Immature Gran # (Auto) 0.03 K/uL (0.00-0.02) H 08/09/22 17:40 PT 11.9 Seconds (9.0-12.0) 08/09/22 17:40 INR 1.1 (0.9-1.1) 08/09/22 17:40 APTT 29.1 Seconds (21.0-31.0) 08/09/22 17:40 PTT Ratio 1.1 08/09/22 17:40 Sodium 137 mmol/L (136-145) 08/09/22 17:40 Potassium 4.3 mmol/L (3.5-5.1) 08/09/22 17:40 Chloride 106 mmol/L (98-107) 08/09/22 17:40 Carbon Dioxide 25 mmol/L (21-32) 08/09/22 17:40 Anion Gap 6 (3-11) 08/09/22 17:40 BUN 27 mg/dl (6-23) H 08/09/22 17:40 Creatinine 1.46 mg/dl (0.6-1.4) H 08/09/22 17:40 Est Cr Clr Drug Dosing 54.4 ml/min 08/09/22 17:40 Est GFR ( Amer) 50.8 ml/min 08/09/22 17:40 Est GFR (Non-Af Amer) 43.9 ml/min 08/09/22 17:40 BUN/Creatinine Ratio 18.5 (10-20) 08/09/22 17:40 Glucose 105 mg/dl (70-99(Fasting)) H 08/09/22 17:40 Lactate 1.6 mmol/L (0.4-2.0) 08/09/22 19:18 Calcium 9.5 mg/dl (8.5-10.1) 08/09/22 17:40 Magnesium 1.9 mg/dl (1.7-2.4) 08/09/22 17:40 Total Bilirubin 1.2 mg/dl (0.2-1.0) H 08/09/22 17:40 AST 24 U/L (13-39) 08/09/22 17:40 ALT 20 U/L (7-52) 08/09/22 17:40 Alkaline Phosphatase 85 U/L (34-104) 08/09/22 17:40 Total Protein 6.2 gm/dl (6.0-8.3) 08/09/22 17:40 Albumin 3.4 gm/dl (3.4-5.0) 08/09/22 17:40 Globulin 2.8 gm/dl (2.5-4.0) 08/09/22 17:40 Albumin/Globulin Ratio 1.2 (0.9-2) 08/09/22 17:40 Procalcitonin 0.07 ng/ml (0-0.5) 08/09/22 17:40 Urine Color Dark Yellow 08/09/22 19:41 Urine Appearance Clear (Clear) 08/09/22 19:41 Urine pH 6.0 (4.5-7.5) 08/09/22 19:41 Ur Specific [place] 1.030 (1.000-1.030) 08/09/22 19:41 Urine Protein 4+ (Negative) H 08/09/22 19:41 Urine Glucose (UA) Negative (Negative) 08/09/22 19:41 Urine Ketones Trace (Negative) H 08/09/22 19:41 Urine Blood 3+ (Negative) H 08/09/22 19:41 Urine Nitrite Negative (Negative) 08/09/22 19:41 Urine Bilirubin Negative (Negative) 08/09/22 19:41 Urine Urobilinogen Negative (Negative) 08/09/22 19:41 Ur Leukocyte Esterase Trace (Negative) H 08/09/22 19:41 Urine WBC (Auto) 1-5 /hpf (0-5) 08/09/22 19:41 Urine RBC (Auto) >30 /hpf (0-4) H 08/09/22 19:41 U Hyaline Cast (Auto) 10-30 /lpf (0-5) H 08/09/22 19:41 U Epithel Cells (Auto) >30 /lpf (0-5) H 08/09/22 19:41 Urine Bacteria (Auto) Negative (Negative) 08/09/22 19:41 Ur Renal Epithelial Cell Not Reportable 08/09/22 19:41 Urine Yeast Budding (None Prsent) A 08/09/22 19:41 Adenovirus (PCR) Not Detected (NotDetected) 08/09/22 18:13 B. pertussis DNA (PCR) Not Detected (NotDetected) 08/09/22 18:13 B.parapertussis DNA PCR Not Detected (NotDetected) 08/09/22 18:13 C. pneumoniae DNA (PCR) Not Detected (NotDetected) 08/09/22 18:13 Coronavirus OC43 (PCR) Not Detected (NotDetected) 08/09/22 18:13 Coronavirus HKU1 (PCR) Not Detected (NotDetected) 08/09/22 18:13 Coronavirus 229E (PCR) Not Detected (NotDetected) 08/09/22 18:13 SARS-CoV-2 (PCR) DETECTED (NotDetected) A* 08/09/22 18:13 Coronavirus NL63 (PCR) Not Detected (NotDetected) 08/09/22 18:13 Human Metapneumovir PCR Not Detected (NotDetected) 08/09/22 18:13 Influenza Type A (PCR) Not Detected (NotDetected) 08/09/22 18:13 Influenza Type B (PCR) Not Detected (NotDetected) 08/09/22 18:13 M. pneumoniae (PCR) Not Detected (NotDetected) 08/09/22 18:13 Parainfluenza 1 (PCR) Not Detected (NotDetected) 08/09/22 18:13 Parainfluenza 2 (PCR) Not Detected (NotDetected) 08/09/22 18:13 Parainfluenza 3 (PCR) Not Detected (NotDetected) 08/09/22 18:13 Parainfluenza 4 (PCR) Not Detected (NotDetected) 08/09/22 18:13 RSV (PCR) Not Detected (NotDetected) 08/09/22 18:13 Entero/Rhino (PCR) Not Detected (NotDetected) 08/09/22 18:13 Impressions Chest X-Ray 08/09/22 19:03 XR chest 1V portable HISTORY: 82 years-old Male SEPSIS acute sepsis COMPARISON: None TECHNIQUE: AP view of the chest FINDINGS: Cardiac silhouette is enlarged. Left subclavian pacer/AICD. No pneumothorax, pleural effusion or overt pulmonary edema. Mild interstitial coarsening of the lung bases. Degenerative changes of the shoulders and spine. IMPRESSION: 1. Cardiomegaly without overt pulmonary edema. 2. Mild nonspecific interstitial coarsening of the lung bases favoring atelectasis. A mild pneumonitis could appear similarly. ACT 112: Negative or not required by law. The above report was generated using voice recognition software. It may contain grammatical, syntax or spelling errors. Electronically signed by: Tin Smith M.D. 08/09/2022 8:[address] 08/09/22 19:04 CT head/brain wo con CLINICAL HISTORY: 82 years-old Male with confusion. Acutely altered mental status TECHNIQUE: Multiple axial CT images of the head were obtained without contrast. A dose lowering technique was utilized adhering to the principles of ALARA. CT DOSE: 767.83 mGy.cm COMPARISON: None. FINDINGS: No acute intracranial hemorrhage, midline shift, intracranial mass, hydrocephalus, territorial ischemia or abnormal extra-axial collection. Age- related involutional changes with mild ex vacuo ventriculomegaly. White matter hypodensities suggest chronic microvascular ischemic disease. Cerebral vascular calcifications. Ill-defined 1.5 cm hypoattenuating focus is noted within the right frontal lobe pittman radiata on image 28. 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 Chronic lacunar infarcts of the left basal ganglia and cerebellar hemisphere. The calvarium is intact. 2.2 cm focus of polypoid mucosal thickening within the right maxillary sinus. The mastoid air cells are clear. Prior bilateral lens repair. IMPRESSION: 1. No acute intracranial hemorrhage, midline shift or acute territorial infarct. 2. Involutional changes with chronic microvascular ischemic disease and chronic lacunar infarcts. 3. 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 4. Chronic right temporoparietal infarct. ACT 112: Negative or not required by law. The above report was generated using voice recognition software. It may contain grammatical, syntax or spelling errors. Electronically signed by: Tin Smith M.D. 08/09/2022 8:00 PM Abdomen/Pelvis CT 08/09/22 21:[address] WITHOUT CONTRAST CT DOSE: 922.40 mGy.cm HISTORY: Acute hematuria hematuria TECHNIQUE: Multiaxial CT images of the abdomen and pelvis were performed without contrast. A dose lowering technique was utilized adhering to the principles of ALARA. COMPARISON STUDY: Chest radiograph of same day FINDINGS: Cardiomegaly with partially imaged pacer leads and extensive coronary artery calcifications. Mural fibrofatty changes with calcifications of the left ventricle apical and septal clark compatible with prior infarct. Trace pleural effusions with bibasilar densities favoring atelectasis. No pneumatosis or pneumoperitoneum. Gynecomastia. The unenhanced spleen, mildly atrophic pancreas and adrenal glands are unremarkable. The gallbladder and liver appear unremarkable. 4 mm nonobstructing calculus of the superior pole left kidney. 1.9 cm cyst of the superior pole right kidney. Punctate nonobstructing calculus of the inferior pole right kidney. No ureteral calculi or hydronephrosis identified. Mild prostamegaly. Mild urinary bladder wall thickening with partial distention. Atherosclerosis of aorta. 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 No lymphadenopathy. No bowel obstruction or bowel wall thickening. Colonic diverticulosis. The appendix is not definitively seen. Calcifications of the right rectus femoris muscle. Degenerative changes of the spine, pelvis and hips. IMPRESSION: 1. Nonobstructing bilateral nephrolithiasis. No ureteral calculi or hydronephrosis. 2. No bowel obstruction or bowel wall thickening. 3. 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 No rupture. 4. Prostamegaly with findings suggestive of chronic bladder outlet obstruction. 5. Colonic diverticulosis. 6. Additional findings as above. ACT 112: Negative or not required by law. The above report was generated using voice recognition software. It may contain grammatical, syntax or spelling errors. Electronically signed by: Tin Smith M.D. 08/09/2022 10:13 PM Diagnostic Findings EKG as per my interpretation :Rate 65, paced rhythm Code Status & VTE Plan VTE Prophylaxis Plan VTE Prophylaxis will be ordered: Yes
[2022-08-10 01:05] LABS: iSTAT Arterial Blood Gas HCO3 21 meg/L (19-24); iSTAT Arterial Blood Gas pCO2 31 mmHg (35-46); iSTAT Arterial Blood Gas pH 7.44 (7.35-7.45); iSTAT Arterial Blood Gas pO2 83 mmHg (80-95); iSTAT Carbon Dioxide 22 mmol/L (24-31)
[2022-08-10] MEDS ORDERED: ACETAMINOPHEN 325 MG TAB PO PRN (02:18)
[2022-08-10] MEDS ORDERED: traMADol HCL 50 MG TABLET PO PRN (02:18)
[2022-08-10] MEDS ORDERED: PROMETHAZINE HCL 12.5 MG in SODIUM CHLORIDE 0.9% 50 ML IV PRN (02:18)
[2022-08-10] MEDS: DOXYCYCLINE HYCLATE 100 MG in DEXTROSE 5% 100 ML IV STA ×2 (02:25→04:18)
[2022-08-10] MEDS ORDERED: Nursing to Pharmacy Communication SCH (03:45)
[2022-08-10 06:11] LABS: Basophils # (auto) 0.03 K/uL (0-0.2); Basophils % (auto) 0.5 %; Eosinophils # (auto) 0.04 K/uL (0-0.50); Eosinophils % (auto) 0.7 %; Hematocrit (blood only) 34.8 % (40.1-51.0); Hemoglobin 11.9 g/dl (14.0-18.0); Immature Granulocytes # (auto) 0.03 K/uL (0.00-0.02); Immature Granulocytes % (auto) 0.5 %; Lymphocytes # (auto) 0.44 K/uL (1.2-3.4); Lymphocytes % (auto) 7.5 %; Mean Corpuscular Hemoglobin 35.4 pg (25.0-34.0); Mean Corpuscular Hgb Conc 34.2 g/dL (32.0-36.0); Mean Corpuscular Volume 103.6 fL (80.0-100.0); Monocytes # (auto) 0.74 K/uL (0.24-0.82); Monocytes % (auto) 12.6 %; Neutrophils # (auto) 4.57 K/uL (1.4-6.5); Neutrophils % (auto) 78.2 %; Platelet Count 115 K/uL (130-400); RDW Coefficient of Variation 12.9 % (11.5-14.5); RDW Standard Deviation 49.1 fL (36.4-46.3); Red Blood Count 3.36 M/uL (4.63-6.08); Reticulocyte % 1.3 % (0.5-2.0); Reticulocytes # 0.04 10^6/uL (0.02-0.10); White Blood Count 5.85 K/ul (4.8-10.8)
[2022-08-10] MEDS ORDERED: ALBUTEROL HFA 8 GM INHALER INH PRN (06:25)
[2022-08-10 06:33] LABS: Calcium 8.5 mg/dl (8.5-10.1); Creatinine Clr Calc Pharmacy 54.8 ml/min; Est GFR (African American) 52.1 ml/min; Potassium 4.2 mmol/L (3.5-5.1)
[2022-08-10 06:51] LABS: Ferritin 311.1 ng/ml (8-388)
[2022-08-10 06:57] LABS: Folate (Folic Acid) 12.9 ng/ml (>5.38)
[2022-08-10] MEDS: FLUoxetine HCL 10 MG CAP PO SCH (09:51)
[2022-08-10] MEDS: METOPROLOL SUCC 25MG EXT REL TAB PO SCH ×2 (09:51→21:43)
--- NOTE | 2022-08-10 10:47 | Electrocardiogram Report ---
Test Reason : Blood Pressure : / mmHG Vent. Rate : 064 BPM Atrial Rate : 060 BPM P-R Int : 000 ms QRS Dur : 172 ms QT Int : 474 ms P-R-T Axes : 000 -54 130 degrees QTc Int : 489 ms Ventricular-paced rhythm Biventricular pacemaker detected Abnormal ECG No previous ECGs available Confirmed by Demarcus Herron ([id number]) on 08/10/2022 10:47:25 AM Referred By: REFERRED SELF Confirmed By:Demarcus Herron
[2022-08-10] MEDS: CEFEPIME 1,000 MG in SYRINGE 0 ML IV SCH (13:30)
[2022-08-10] MEDS ORDERED: CEFEPIME 2,000 MG in SYRINGE 0 ML IV SCH (14:00)
--- NOTE | 2022-08-10 16:26 | Communication Note ---
Date of Service: August 10, 2022 Pt was seen and examined for follow up of COVID 19 Lying in bed with no acute distress Pt said that he does have a productive cough He said that his breathing is ok Denies any chest pain, palpitation, dizziness and SOB Exam General- No acute distress Head- atraumatic Eyes- PERRL, EOMI, ENT- oropharynx clear Neck- supple, no JVD Lungs- No wheezing Heart- regular rhythm; +murmur Abdomen- normal bowel sounds, soft, nontender Extremities- no calf tenderness, +edema Neuro- alert, awake, PERRL, EOMI; no facial palsy; no dysarthria Skin- warm & dry A/P Encephalopathy Weakness Possible related to acute illness/ COVID [address] head showed No acute intracranial hemorrhage, midline shift or acute territorial infarct. 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 PT/OT eval fall precaution COVID 19 Testing positive for COVID 19 CXR showed mild nonspecific interstitial coarsening of the lung bases favoring atelectasis. A mild pneumonitis could appear similarly. Pt does not meet the criteria for dexamethasone and Remdesivir due to normal oxygen saturation Currently on cefepime and doxycycline for possible superimposed bacterial infection Blood cx pending Will add guaifenesin Continue flutter valve and incentive spirometry Continue monitor closely Hematuria Gross hematuria noted at the ER Hgb on admission 13 then dropped to 11.9 Eliquis on hold No active sign of bleeding noted Will repeat H/H, then if stable will resume Eliquis and clopidogrel DVT px SCD for possible hematuria
[2022-08-10] MEDS: guaiFENesin SUGAR FREE 200 MG/10 ML UDC PO SCH (17:13)
[2022-08-10] MEDS: DOXYCYCLINE HYCLATE 100 MG CAP PO SCH (17:14)
[2022-08-10] MEDS: ROSUVASTATIN CALCIUM 10 MG TAB PO SCH (21:43)
[2022-08-11] MEDS: guaiFENesin SUGAR FREE 200 MG/10 ML UDC PO SCH ×3 (02:23→17:28)
[2022-08-11] MEDS: CEFEPIME 1,000 MG in SYRINGE 0 ML IV SCH ×2 (02:23→14:44)
[2022-08-11 08:01] LABS: Creatinine Clr Calc Pharmacy 65.9 ml/min; Est GFR (African American) 64.4 ml/min; Est GFR (Non-African American) 55.6 ml/min
[2022-08-11] MEDS: METOPROLOL SUCC 25MG EXT REL TAB PO SCH ×2 (08:19→21:48)
[2022-08-11] MEDS: FLUoxetine HCL 10 MG CAP PO SCH (08:19)
[2022-08-11] MEDS: DOXYCYCLINE HYCLATE 100 MG CAP PO SCH ×2 (08:19→21:48)
--- NOTE | 2022-08-11 14:48 | Hospitalist Progress Note ---
Date of Service August 11, 2022 Assessment & Plan (1) Encephalopathy: Plan: Encephalopathy Weakness Possible related to acute illness/ COVID [address] head showedNo acute intracranial hemorrhage, midline shift or acute territorial infarct. 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 Continue PT/OT fall precaution COVID 19 Testing positive for COVID 19 CXR showedmild nonspecific interstitial coarsening of the lung bases favoring atelectasis. A mild pneumonitis could appear similarly. Pt does not meet the criteria for dexamethasone and Remdesivir due to normal oxygen saturation Currently on cefepime and doxycycline for possible superimposed bacterial infection Blood cx no growth Continue guaifenesin, flutter valve and incentive spirometry Continue monitor closely Hematuria Gross hematuria noted at the ER Hgb on admission 13 then dropped to 11.9 No active sign of bleeding noted Eliquis and clopidogrel resumed Afib AICD Continue metoprolol Will resume eliquis and plavix stable HTN BP stable Continue spironolactone, Rosuvastatin metoprolol and Lisinopril Stable DVT px SCD for possible hematuria Disposition Plan to discharge tomorrow Patient son requesting updates providers. Mr. Luis Troy, contact #[phone]. Admission and Anticipated Discharge Date Admission Date: August 10, 2022 Subjective Pt was seen and examined for follow covid 19 Lying in bed with no acute distress and saturated well on RA Pt said that his cough is alot better He said that he walked with therapy this morning He said that he feels much better today denies any chest pain, palpitation, dizziness and SOB Review of Systems Review of Systems: All systems reviewed & are unremarkable except as noted in Subjective Physical Exam Physical Exam: General- No acute distress Head- atraumatic Eyes- PERRL, EOMI, ENT- oropharynx clear Neck- supple, no JVD Lungs- No wheezing Heart- regular rhythm; +murmur Abdomen- normal bowel sounds, soft, nontender Extremities- no calf tenderness, +trace edema Neuro- alert, awake, PERRL, EOMI; no facial palsy; no dysarthria Skin- warm & dry Results & Data Results & Data ([facility]) Vital Signs (Past 12 Hours) Vital Signs Temp Pulse Pulse Resp BP Pulse Ox Pulse Ox 08/11/22 11:39 36.7 C 74 18 122/79 96 08/11/22 09:38 08/11/22 09:37 96 08/11/22 08:16 36.8 C 67 18 119/77 96 08/11/22 07:00 60 O2 Del Method O2 Del Method 08/11/22 11:39 Room Air 08/11/22 09:38 Room Air 08/11/22 09:37 Room Air 08/11/22 08:16 Room Air 08/11/22 07:00
[2022-08-11 15:14] LABS: Hematocrit (blood only) 34.7 % (40.1-51.0); Hemoglobin 11.8 g/dl (14.0-18.0); Mean Platelet Volume 11.2 fL (9.4-12.4); Platelet Count 104 K/uL (130-400); White Blood Count 4.07 K/ul (4.8-10.8)
[2022-08-11 15:31] LABS: Mean Corpuscular Hemoglobin 35.6 pg (25.0-34.0); Mean Corpuscular Volume 104.8 fL (80.0-100.0); RDW Coefficient of Variation 13.1 % (11.5-14.5); RDW Standard Deviation 50.7 fL (36.4-46.3); Red Blood Count 3.31 M/uL (4.63-6.08)
[2022-08-12] MEDS: ROSUVASTATIN CALCIUM 10 MG TAB PO SCH (01:56)
[2022-08-12] MEDS: guaiFENesin SUGAR FREE 200 MG/10 ML UDC PO SCH ×2 (01:56→10:03)
[2022-08-12] MEDS: CEFEPIME 1,000 MG in SYRINGE 0 ML IV SCH (01:57)
[2022-08-12 08:37] LABS: Creatinine Clr Calc Pharmacy 70.5 ml/min; Est GFR (Non-African American) 60.4 ml/min
[2022-08-12] MEDS: FLUoxetine HCL 10 MG CAP PO SCH (10:03)
[2022-08-12] MEDS: DOXYCYCLINE HYCLATE 100 MG CAP PO SCH (10:03)
[2022-08-12] MEDS: METOPROLOL SUCC 25MG EXT REL TAB PO SCH (10:03)
--- NOTE | 2022-08-12 12:27 | Discharge Summary ---
Date of Service August 12, 2022 Admission HPI Per Admitting Provider History obtained from patient, family, and records. Patient is a fair historian. Medical history significant for CAD status post stent, CVA, A. fib status post PPM on Eliquis, hypertension, hyperlipidemia, mood disorder, dementia. Patient moved from [place], [place] to a local halfway last October 2021 to be close to his son. 3 days history of junky cough symptoms as per patient. No chest pain, no SOB. Not sure about sick contacts at halfway. Patient completed COVID-19 vaccination. Patient noted to be increasingly weak. Concern for aspiration as patient noted to have food on his chest as per halfway account. Patient denies aspiration. SBP noted to be 80s at halfway. Patient noted to be increasingly confused. Patient brought to the ER for evaluation. Transient O2 sats of 70s on room air upon arrival at the ER attributed by staff to sensor issues. Some improvement after IV fluids administered at the ER. Gross hematuria noted at the ER. Patient denies abdominal pain/dysuria/flank pain symptoms. 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 Admission Exam Per Admitting Provider GENERAL: Comfortable, obese, pleasant, oriented to year and day, no respiratory distress SKIN: Normal color,, warm HEENT: Pale palpebral conjunctivae, no ptosis, dry buccal mucosa NECK : Supple, short neck, no tenderness CHEST : Decreased breath sounds, no tenderness HEART : RRR, apical systolic murmur ABDOMEN: Some distention, nontender EXTREMITIES : Bilateral LE swelling, no LE tenderness, no other conspicuous deformities noted NEUROLOGIC : Coherent, no facial asymmetry, gait and stance not assessed Principal Diagnosis Encephalopathy Weakness COVID 19 Possible Hematuria Hypertension Discharge Exam General- No acute distress Head- atraumatic Eyes- PERRL, EOMI, ENT- oropharynx clear Neck- supple, no JVD Lungs- No wheezing Heart- regular rhythm; +murmur Abdomen- normal bowel sounds, soft, nontender Extremities- no calf tenderness, +trace edema Neuro- alert, awake, PERRL, EOMI; no facial palsy; no dysarthria Skin- warm & dry Discharge Data Allergies Allergy/AdvReac Type Severity Reaction Status Date / Time No Known Allergies Allergy Unverified 08/09/22 22:43 Consultations 08/09/22 23:50 ED Decision to Admit Stat Ordered Studies 08/09/22 19:04 CT head/brain wo con Stat 08/09/22 21:35 CT abd pelvis wo con Stat Laboratory Results WBC 4.07 K/ul (4.8-10.8) L 08/11/22 07:22 RBC 3.31 M/uL (4.63-6.08) L 08/11/22 07:22 Hgb 11.8 g/dl (14.0-18.0) L 08/11/22 07:22 Hct 34.7 % (40.1-51.0) L 08/11/22 07:22 MCV 104.8 fL (80.0-100.0) H 08/11/22 07:22 MCH 35.6 pg (25.0-34.0) H 08/11/22 07:22 MCHC 34.0 g/dL (32.0-36.0) 08/11/22 07:22 RDW Std Deviation 50.7 fL (36.4-46.3) H 08/11/22 07:22 RDW Coeff of Tucker 13.1 % (11.5-14.5) 08/11/22 07:22 Plt Count 104 K/uL (130-400) L 08/11/22 07:22 MPV 11.2 fL (9.4-12.4) 08/11/22 07:22 Immature Gran % (Auto) 0.5 % 08/10/22 05:45 Neut % (Auto) 78.2 % 08/10/22 05:45 Lymph % (Auto) 7.5 % 08/10/22 05:45 Dane % (Auto) 12.6 % 08/10/22 05:45 Eos % (Auto) 0.7 % 08/10/22 05:45 Baso % (Auto) 0.5 % 08/10/22 05:45 Reticulocyte % (Auto) 1.3 % (0.5-2.0) 08/10/22 05:45 Neut # (Auto) 4.57 K/uL (1.4-6.5) 08/10/22 05:45 Lymph # (Auto) 0.44 K/uL (1.2-3.4) L 08/10/22 05:45 Dane # (Auto) 0.74 K/uL (0.24-0.82) 08/10/22 05:45 Eos # (Auto) 0.04 K/uL (0-0.50) 08/10/22 05:45 Baso # (Auto) 0.03 K/uL (0-0.2) 08/10/22 05:45 Reticulocyte # 0.04 10^6/uL (0.02-0.10) 08/10/22 05:45 Immature Gran # (Auto) 0.03 K/uL (0.00-0.02) H 08/10/22 05:45 PT 11.9 Seconds (9.0-12.0) 08/09/22 17:40 INR 1.1 (0.9-1.1) 08/09/22 17:40 APTT 29.1 Seconds (21.0-31.0) 08/09/22 17:40 PTT Ratio 1.1 08/09/22 17:40 POC pH 7.44 (7.35-7.45) 08/10/22 00:50 POC pCO2 31 mmHg (35-46) L 08/10/22 00:50 POC pO2 83 mmHg (80-95) 08/10/22 00:50 POC HCO3 21 eveline/L (19-24) 08/10/22 00:50 POC Total CO2 22 mmol/L (24-31) L 08/10/22 00:50 POC Base Excess -3.0 eveline/L (-9-1.8) 08/10/22 00:50 POC ABG O2 Sat 97.0 % (90-95) H 08/10/22 00:50 Sodium 136 mmol/L (136-145) 08/10/22 05:45 Potassium 4.1 mmol/L (3.5-5.1) 08/12/22 08:01 Chloride 107 mmol/L (98-107) 08/10/22 05:45 Carbon Dioxide 24 mmol/L (21-32) 08/10/22 05:45 Anion Gap 5 (3-11) 08/10/22 05:45 BUN 30 mg/dl (6-23) H 08/10/22 05:45 Creatinine 1.12 mg/dl (0.6-1.4) 08/12/22 08:01 Est Cr Clr Drug Dosing 70.5 ml/min 08/12/22 08:01 Est GFR ( Amer) 70.0 ml/min 08/12/22 08:01 Est GFR (Non-Af Amer) 60.4 ml/min 08/12/22 08:01 BUN/Creatinine Ratio 21.0 (10-20) H 08/10/22 05:45 Glucose 96 mg/dl (70-99(Fasting)) 08/10/22 05:45 Lactate 1.6 mmol/L (0.4-2.0) 08/09/22 19:18 Calcium 8.5 mg/dl (8.5-10.1) 08/10/22 05:45 Magnesium 1.9 mg/dl (1.7-2.4) 08/09/22 17:40 Iron 22 mcg/dl (35-175) L 08/10/22 05:45 Transferrin 193 mg/dl (200-360) L 08/10/22 05:45 Ferritin 311.1 ng/ml (8-388) 08/10/22 05:45 Total Bilirubin 1.2 mg/dl (0.2-1.0) H 08/09/22 17:40 AST 24 U/L (13-39) 08/09/22 17:40 ALT 20 U/L (7-52) 08/09/22 17:40 Alkaline Phosphatase 85 U/L (34-104) 08/09/22 17:40 Total Protein 6.2 gm/dl (6.0-8.3) 08/09/22 17:40 Albumin 3.4 gm/dl (3.4-5.0) 08/09/22 17:40 Globulin 2.8 gm/dl (2.5-4.0) 08/09/22 17:40 Albumin/Globulin Ratio 1.2 (0.9-2) 08/09/22 17:40 Vitamin B12 193 pg/ml (180-914) 08/10/22 05:45 Vitamin B12 Cancelled 08/10/22 05:45 Folate 12.90 ng/ml (>5.38) 08/10/22 05:45 Procalcitonin 0.07 ng/ml (0-0.5) 08/09/22 17:40 TSH 0.593 uIu/ml (0.300-4.500) 08/09/22 17:40 Urine Color Dark Yellow 08/09/22 19:41 Urine Appearance Clear (Clear) 08/09/22 19:41 Urine pH 6.0 (4.5-7.5) 08/09/22 19:41 Ur Specific Marcus 1.030 (1.000-1.030) 08/09/22 19:41 Urine Protein 4+ (Negative) H 08/09/22 19:41 Urine Glucose (UA) Negative (Negative) 08/09/22 19:41 Urine Ketones Trace (Negative) H 08/09/22 19:41 Urine Blood 3+ (Negative) H 08/09/22 19:41 Urine Nitrite Negative (Negative) 08/09/22 19:41 Urine Bilirubin Negative (Negative) 08/09/22 19:41 Urine Urobilinogen Negative (Negative) 08/09/22 19:41 Ur Leukocyte Esterase Trace (Negative) H 08/09/22 19:41 Urine WBC (Auto) 1-5 /hpf (0-5) 08/09/22 19:41 Urine RBC (Auto) >30 /hpf (0-4) H 08/09/22 19:41 U Hyaline Cast (Auto) 10-30 /lpf (0-5) H 08/09/22 19:41 U Epithel Cells (Auto) >30 /lpf (0-5) H 08/09/22 19:41 Urine Bacteria (Auto) Negative (Negative) 08/09/22 19:41 Ur Renal Epithelial Cell Not Reportable 08/09/22 19:41 Urine Yeast Budding (None Prsent) A 08/09/22 19:41 Nasal Screen MRSA (PCR) Negative (Negative) 08/10/22 02:40 Adenovirus (PCR) Not Detected (NotDetected) 08/09/22 18:13 B. pertussis DNA (PCR) Not Detected (NotDetected) 08/09/22 18:13 B.parapertussis DNA PCR Not Detected (NotDetected) 08/09/22 18:13 C. pneumoniae DNA (PCR) Not Detected (NotDetected) 08/09/22 18:13 Coronavirus OC43 (PCR) Not Detected (NotDetected) 08/09/22 18:13 Coronavirus HKU1 (PCR) Not Detected (NotDetected) 08/09/22 18:13 Coronavirus 229E (PCR) Not Detected (NotDetected) 08/09/22 18:13 SARS-CoV-2 (PCR) DETECTED (NotDetected) A* 08/09/22 18:13 Coronavirus NL63 (PCR) Not Detected (NotDetected) 08/09/22 18:13 Human Metapneumovir PCR Not Detected (NotDetected) 08/09/22 18:13 Influenza Type A (PCR) Not Detected (NotDetected) 08/09/22 18:13 Influenza Type B (PCR) Not Detected (NotDetected) 08/09/22 18:13 M. pneumoniae (PCR) Not Detected (NotDetected) 08/09/22 18:13 Parainfluenza 1 (PCR) Not Detected (NotDetected) 08/09/22 18:13 Parainfluenza 2 (PCR) Not Detected (NotDetected) 08/09/22 18:13 Parainfluenza 3 (PCR) Not Detected (NotDetected) 08/09/22 18:13 Parainfluenza 4 (PCR) Not Detected (NotDetected) 08/09/22 18:13 RSV (PCR) Not Detected (NotDetected) 08/09/22 18:13 Entero/Rhino (PCR) Not Detected (NotDetected) 08/09/22 18:13 Blood Type O Positive 08/10/22 05:45 Antibody Screen NEGATIVE 08/10/22 05:45 Impressions Chest X-Ray 08/09/22 19:03 XR chest 1V portable HISTORY: 82 years-old Male SEPSIS acute sepsis COMPARISON: None TECHNIQUE: AP view of the chest FINDINGS: Cardiac silhouette is enlarged. Left subclavian pacer/AICD. No pneumothorax, pleural effusion or overt pulmonary edema. Mild interstitial coarsening of the lung bases. Degenerative changes of the shoulders and spine. IMPRESSION: 1. Cardiomegaly without overt pulmonary edema. 2. Mild nonspecific interstitial coarsening of the lung bases favoring atelectasis. A mild pneumonitis could appear similarly. ACT 112: Negative or not required by law. The above report was generated using voice recognition software. It may contain grammatical, syntax or spelling errors. Electronically signed by: Tin Smith M.D. 08/09/2022 8:[address] 08/09/22 19:04 CT head/brain wo con CLINICAL HISTORY: 82 years-old Male with confusion. Acutely altered mental status TECHNIQUE: Multiple axial CT images of the head were obtained without contrast. A dose lowering technique was utilized adhering to the principles of ALARA. CT DOSE: 767.83 mGy.cm COMPARISON: None. FINDINGS: No acute intracranial hemorrhage, midline shift, intracranial mass, hydrocephalus, territorial ischemia or abnormal extra-axial collection. Age- related involutional changes with mild ex vacuo ventriculomegaly. White matter hypodensities suggest chronic microvascular ischemic disease. Cerebral vascular calcifications. Ill-defined 1.5 cm hypoattenuating focus is noted within the right frontal lobe pittman radiata on image 28. 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 Chronic lacunar infarcts of the left basal ganglia and cerebellar hemisphere. The calvarium is intact. 2.2 cm focus of polypoid mucosal thickening within the right maxillary sinus. The mastoid air cells are clear. Prior bilateral lens repair. IMPRESSION: 1. No acute intracranial hemorrhage, midline shift or acute territorial infarct. 2. Involutional changes with chronic microvascular ischemic disease and chronic lacunar infarcts. 3. 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 4. Chronic right temporoparietal infarct. ACT 112: Negative or not required by law. The above report was generated using voice recognition software. It may contain grammatical, syntax or spelling errors. Electronically signed by: Tin Smith M.D. 08/09/2022 8:00 PM Abdomen/Pelvis CT 08/09/22 21:[address] WITHOUT CONTRAST CT DOSE: 922.40 mGy.cm HISTORY: Acute hematuria hematuria TECHNIQUE: Multiaxial CT images of the abdomen and pelvis were performed without contrast. A dose lowering technique was utilized adhering to the principles of ALARA. COMPARISON STUDY: Chest radiograph of same day FINDINGS: Cardiomegaly with partially imaged pacer leads and extensive coronary artery calcifications. Mural fibrofatty changes with calcifications of the left ventricle apical and septal clark compatible with prior infarct. Trace pleural effusions with bibasilar densities favoring atelectasis. No pneumatosis or pneumoperitoneum. Gynecomastia. The unenhanced spleen, mildly atrophic pancreas and adrenal glands are unremarkable. The gallbladder and liver appear unremarkable. 4 mm nonobstructing calculus of the superior pole left kidney. 1.9 cm cyst of the superior pole right kidney. Punctate nonobstructing calculus of the inferior pole right kidney. No ureteral calculi or hydronephrosis identified. Mild prostamegaly. Mild urinary bladder wall thickening with partial distention. Atherosclerosis of aorta. 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 No lymphadenopathy. No bowel obstruction or bowel wall thickening. Colonic diverticulosis. The appendix is not definitively seen. Calcifications of the right rectus femoris muscle. Degenerative changes of the spine, pelvis and hips. IMPRESSION: 1. Nonobstructing bilateral nephrolithiasis. No ureteral calculi or hydronephrosis. 2. No bowel obstruction or bowel wall thickening. 3. 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 No rupture. 4. Prostamegaly with findings suggestive of chronic bladder outlet obstruction. 5. Colonic diverticulosis. 6. Additional findings as above. ACT 112: Negative or not required by law. The above report was generated using voice recognition software. It may contain grammatical, syntax or spelling errors. Electronically signed by: Tin Smith M.D. 08/09/2022 10:13 PM Hospital Course (1) Encephalopathy: Encephalopathy Weakness Possible related to acute illness/ COVID [address] head showedNo acute intracranial hemorrhage, midline shift or acute territorial infarct. 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 Continue PT/OT fall precaution COVID 19 Testing positive for COVID 19 CXR showedmild nonspecific interstitial coarsening of the lung bases favoring atelectasis. A mild pneumonitis could appear similarly. Pt does not meet the criteria for dexamethasone and Remdesivir due to normal o xygen saturation Currently on cefepime and doxycycline for possible superimposed bacterial infection Blood cx no growth Continue guaifenesin, flutter valve and incentive spirometry Continue monitor closely Hematuria Gross hematuria noted at the ER Hgb on admission 13 then dropped to 11.9 No active sign of bleeding noted Pilar and clopidogrel resumed Check CBC in 1 week to monitor Hgb Afib AICD Continue metoprolol Continue eliquis and plavix on discharge stable HTN BP stable Continue spironolactone, Rosuvastatin metoprolol and Lisinopril Stable DVT px SCD for possible hematuria Disposition Plan to discharge today Patient son requesting updates providers. Mr. Luis Troy, contact #[phone]. case discussed with son before discharge. Provided him with update and answered all his questions Total Time Total Time Spent Total Time Spent (In Minutes): 35 minutes Discharge Plan Discharge Items Patient Disposition: Personal [facility] Reason For Visit: RESP FAILURE, COVID Discharge Diagnosis: Encephalopathy Weakness COVID 19 Possible Hematuria Hypertension Activity: Resume your previous activity Non-emergency contact: Primary Care Provider Call non-emergency contact if: you have any medication questions Follow-up/Referrals: Cory Jensen [Primary Care Provider] - Diet: Heart Healthy Addtl Attending Provider Instructions: Follow up with your your primary care provider within 1 week Continue physical and occupational therapy Fall precaution Continue to practice social distance and to wear a mask Continue flutter valve and incentive spirometry Continue monitor for any bleeding while on Plavix and eliquis since you had an episode of blood in urine in the ER Check CBC in 1 week to monitor your hemoglobin Home Isolation COVID-19 Instructions The following information about Home Isolation is from the CDC Website: https://www.cdc.gov/coronavirus/2019-ncov/hcp/jbclijri-gnwbysm-vgqfxk.html Stay home except to get medical care People who are mildly ill with COVID-19 are able to isolate at home during their illness. You should restrict activities outside your home, except for getting medical care. Do not go to work, school, or public areas. Avoid using public transportation, ride-sharing, or taxis. Separate yourself from other people and animals in your home People: As much as possible, you should stay in a specific room and away from other people in your home. Also, you should use a separate bathroom, if available. Animals: You should restrict contact with pets and other animals while you are sick with COVID-19, just like you would around other people. Although there have not been reports of pets or other animals becoming sick with COVID-19, it is still recommended that people sick with COVID-19 limit contact with animals until more information is known about the virus. When possible, have another m ember of your household care for your animals while you are sick. If you are sick with COVID-19, avoid contact with your pet, including petting, snuggling, being kissed or licked, and sharing food. If you must care for your pet or be around animals while you are sick, wash your hands before and after you interact with pets and wear a face mask. Call ahead before visiting your doctor If you have a medical appointment, call the healthcare provider and tell them that you have or may have COVID-19. This will help the healthcare providers office take steps to keep other people from getting infected or exposed. Wear a face mask You should wear a face mask when you are around other people (e.g., sharing a room or vehicle) or pets and before you enter a healthcare providers office. If you are not able to wear a face mask (for example, because it causes trouble breathing), then people who live with you should not stay in the same room with you, or they should wear a face mask if they enter your room. Cover your coughs and sneezes Cover your mouth and nose with a tissue when you cough or sneeze. Throw used tissues in a lined trash can. Immediately wash your hands with soap and water for at least 20 seconds or, if soap and water are not available, clean your hands with an alcohol-based hand manhole stripper that contains at least 60% alcohol. Clean your hands often Wash your hands often with soap and water for at least 20 seconds, especially after blowing your nose, coughing, or sneezing; going to the bathroom; and before eating or preparing food. If soap and water are not readily available, use an alcohol-based hand manhole stripper with at least 60% alcohol, covering all surfaces of your hands and rubbing them together until they feel dry. Soap and water are the best option if hands are visibly dirty. Avoid touching your eyes, nose, and mouth with unwashed hands. Avoid sharing personal household items You should not share dishes, drinking glasses, cups, eating utensils, towels, or bedding with other people or pets in your home. After using these items, they should be washed thoroughly with soap and water. Clean all high-touch surfaces everyday High touch surfaces include counters, tabletops, doorknobs, bathroom fixtures, t oilets, phones, keyboards, tablets, and bedside tables. Also, clean any surfaces that may have blood, stool, or body fluids on them. Use a household cleaning spray or wipe, according to the label instructions. Labels contain instructions for safe and effective use of the cleaning product including precautions you should take when applying the product, such as wearing gloves and making sure you have good ventilation during use of the product. Monitor your symptoms Seek prompt medical attention if your illness is worsening (e.g., difficulty breathing).Beforeseeking care, call your healthcare provider and tell them that you have, or are being evaluated for, COVID-19. Put on a face mask before you enter the facility. These steps will help the healthcare providers office to keep other people in the office or waiting room from getting infected or exposed. Ask your healthcare provider to call the local or state health department. Persons who are placed under active monitoring or facilitated self- monitoring should follow instructions provided by their local health department or occupational health professionals, as appropriate. When working with your local health department check their available hours. If you have a medical emergency and need to call 911, notify the dispatch personnel that you have, or are being evaluated for COVID-19. If possible, put on a face mask before emergency medical services arrive. Discontinuing home isolation Patients with confirmed COVID-19 should remain under home isolation precautions until the risk of secondary transmission to others is thought to be low. The decision to discontinue home isolation precautions should be made on a [id number] basis, in consultation with healthcare providers and state and local health departments. Coronavirus disease 2019 (COVID-19) is a virus that causes a respiratory illness. It is caused by a coronavirus called 2019 novel coronavirus (2019- nCoV). There are many types of coronavirus. Coronaviruses are a very common cause of bronchitis. They may sometimes cause lung infection(pneumonia). Symptoms can range from mild to severe respiratory illness. These viruses are also foundin some animals. COVID-19 was first found in people in [facility], in late 2019. In 2020, several cases of COVID-19 have been confirmed in the [place] Public health officials are working to find the source. How the virus spreads is not yet fully known. It may be spread through droplets of fluid that a person coughs or sneezes into the air. It may be spread if you touch a surface with virus on it, such as a handle or object, and then touch your mouth. What are the symptoms of COVID-19? Some people have no symptoms or mild symptoms. Symptoms may appear 2 to 14 days after contact with the virus. Symptoms can include: Fever Coughing Trouble breathing What are possible complications from COVID-19? In many cases, this virus can cause infection (pneumonia) in both lungs. In some cases, this can cause . How is COVID-19 diagnosed? Your healthcare provider will ask about your symptoms. He or she will also ask about your recent travel and contact with sick people. Testing for the virus is only done through the [facility]. If yourhealthcare provider thinks you may have COVID- 19, he or she will work with your local health department and the CDC on testing. Follow all instructions from your healthcare provider. COVID-19 is diagnosed by: Nasal and throat swab. A cotton-tipped swab is wiped inside your nose or throat. This is done to check for viruses in your nasal mucus. Sputum culture. A small sample of mucus coughed from your lungs (sputum) is collected if you have a cough. It is checked for the virus. How is COVID-19 treated? There is currently no medicine to treat the virus. Treatment is done to help your body while it fights the virus. This is known as supportive care. Supportive care may include: Pain medicine. These include acetaminophen and ibuprofen. They are used to help ease pain and reduce fever. Bed rest. This helps your body fight the illness. For severe illness, you may need to stay in the hospital. Care during severe illness may include: IV (intravenous) fluids.These are given through a vein to help keep your body hydrated. Oxygen. Supplemental oxygen or ventilation with a breathing machine (ventilator) may be given. This is done to keep enough oxygen in your body. Are you at risk for COVID-19? If youve been to a place where people have been sick with this virus, you are at risk for infection. You are at risk if you: Recently traveled to an affected area Had contact with a sick person who recently traveled to this area Had contact with a person who was diagnosed with COVID-19 How can COVID-19 be prevented? There is no vaccine yet. The best prevention is to not have contact with the virus. The CDC advises that people should not travel to areas where there are COVID-19 outbreaks right now for any reason that is not urgent. To help prevent spreading the infection, wash your hands often, or use an alcohol-basedhand manhole stripper. If you are in an area with COVID-19: Wash your hands often. Or use an alcohol-based hand manhole stripper often. Only touch your eyes, nose, or mouth with clean hands. Dont have contact with people who are sick. Follow local instructions about being in public. For example, you may be told to not use public transport for a period of time. Stay away from markets that have live or animals. Wash your hands after touching any animals. Don't touch animals that may be sick. Dont share eating or drinking tools with sick people. Dont kiss someone who is sick. Clean surfaces often with disinfectant. If you were in an area with COVID-19 in the last 14 days: Call your healthcare provider. He or she can talk with local health staff to see what action may be needed. Follow all instructions from your provider. Take your temperature every morning and evening for at least 14 days. This is to check for fever. Keep a record of the readings. Keep watch for symptoms of the virus. Tell your provider right away if you have symptoms. If you were in an area with COVID-19 and have a fever or other symptoms: Dont panic. Keep in mind that other illnesses can cause similar symptoms. Stay away from work, school, and public places. Limit physical contact with family members. Don't kiss anyone or share eating or drinking utensils. Clean surfaces you touch with disinfectant. This is to help prevent the virus from spreading. Call your healthcare provider. Explain that you have been exposed to COVID-19 and have symptoms. Do this before going to any hospital. Wait for instructions. Keep in mind that healthcare staff may wear protective equipment such as masks, gowns, gloves, and eye protection. You may be put in a separate room. This is to prevent the possible virus from spreading. Tell the healthcare staff about recent travel. This includes local travel on public transport. Staff may need to find other people you have been in contact with. Follow all instructions the healthcare staff give you. If you have been diagnosed with COVID-19 Follow all instructions from your healthcare provider. Dont leave your home, except to get medical care. Call your healthcare providers office before going. They can prepare and give you instructions. This will help prevent the virus from spreading. Dont go to work, school, or public areas. Dont use public transport or taxis. Stay away from other people in your home. Have them wear face masks around you. Dont share household items or food. Wear a face mask if you can. This includes at home or in a medical facility. Cover your face with a tissue when you cough or sneeze. Throw the tissue away. Wash your hands. Wash your hands often. Caregivers should: Follow all instructions from healthcare staff. Wear a face mask and protective clothing as advised. Wash hands often. Keep track of the sick persons symptoms. Clean surfaces, fabrics, and laundry thoroughly. Keep other people away from the sick person. When to call your healthcare provider Call your healthcare provider: If youve recently traveled and have symptoms If you have been diagnosed with COVID-19 and your symptoms are worse To learn more To find out more about COVID-19, visit the CDC website at www.cdc.gov/coronavirus/2019-ncov/index.html. The [employer]. [address] [place] [address]. All rights reserved. This information is not intended as a substitute for professional medical care. Always follow your healthcare professional's instructions. This information has been adapted from [employer] Pending Studies at Discharge: No Stand-Alone Forms: [employer], Smoking Cessation Skilled Items Patient informed of condition?: Yes DNR: Yes Discharge Level of Care: Other Communicable Disease: Yes Discharge Prognosis: Stable Lines: None Urinary Catheter: No Medications and DC Order Prescriptions: New doxycycline hyclate 100 mg Capsule 100 mg PO Q12 3 Days Qty: 6 0RF guaifenesin 100 mg/5 mL Liquid 200 mg PO Q8H PRN (Reason: cough) 5 Days Qty: 473 0RF Continued clopidogrel 75 mg tablet 75 mg PO DAILY fluoxetine 10 mg capsule 10 mg PO DAILY lisinopril 5 mg tablet 5 mg PO DAILY fluticasone propionate 50 mcg/actuation spray,suspension 1 spray INTRANASAL BID Eliquis 5 mg tablet 5 mg PO BID nitroglycerin 0.4 mg tablet, sublingual 0.4 mg sublingual UD PRN (Reason: Chest Pain) Rx Instructions: 1 tab under tongue every 5 min for 3 doses as needed for chest pain,if no relief call furosemide 20 mg tablet 20 mg PO DAILY furosemide 20 mg tablet 20 mg PO 3XWK Rx Instructions: take in addition to routine dose ketoconazole 2 % cream 1 applic TOPICAL BID PRN (Reason: flares) Rx Instructions: apply to behind ears as needed for seborrheic dernatitis flares acetaminophen 325 mg Tablet 650 mg PO Q4 MDD 3g PRN (Reason: Fever Or Pain) ketoconazole 2 % shampoo 1 applic TOPICAL 3XWK Rx Instructions: apply to scalp and behind ears...leave on for 3-5 minutes before rinsing spironolactone 100 mg tablet 100 mg PO DAILY metoprolol succinate 25 mg tablet extended release 24 hr 25 mg PO BID rosuvastatin 10 mg tablet 10 mg PO HS cholecalciferol (vitamin D3) [Vitamin D3] 50 mcg (2,000 unit) Tablet 50 mcg PO DAILY Discharge Orders: Discharge Order (Routine); Ordered 08/12/22 Ordered By: Tray Reynolds Admission Data Admit Date/Time: 08/10/22 00:51 Attending Provider: Tray Reynolds Admit Provider: Macho España Primary Care Provider: Cory Jensen Other Providers: Macho España Other Interventions: Discharge Summary Assessment (RN) Last Done: 08/12/22 12:33
[2022-08-12] MEDS ORDERED: APIXABAN 5 MG TABLET PO SCH (12:30)
[2022-08-12] MEDS ORDERED: CEFEPIME 2,000 MG in SYRINGE 0 ML IV SCH (14:00)
== END 2022-08-12 13:15 | disposition home or self-care (01) | DRG 177 ==
LOC: ED 17:15 → 2N 08-10 00:51

== ENCOUNTER 2023-09-04 15:27 | Inpatient (IN) ==
[2023-09-04 16:15] LABS: Basophils # (auto) 0.07 K/uL (0.00-0.20); Basophils % (auto) 1.2 %; Eosinophils # (auto) 0.41 K/uL (0.00-0.50); Eosinophils % (auto) 7.1 %; Hematocrit (blood only) 31.3 % (42.0-52.0); Hemoglobin 10.5 g/dl (14.0-18.0); Immature Granulocytes # (auto) 0.03 K/uL (0.01-0.20); Immature Granulocytes % (auto) 0.5 %; Lymphocytes # (auto) 0.97 K/uL (1.20-3.40); Lymphocytes % (auto) 16.8 %; Mean Corpuscular Hemoglobin 36.3 pg (25.0-34.0); Mean Corpuscular Hgb Conc 33.5 g/dL (32.0-36.0); Mean Corpuscular Volume 108.3 fL (80.0-100.0); Mean Platelet Volume 11.1 fL (9.4-12.4); Monocytes # (auto) 0.75 K/uL (0.11-0.59); Neutrophils # (auto) 3.54 K/uL (1.40-6.50); Neutrophils % (auto) 61.4 %; Platelet Count 83 K/uL (130-400); RDW Coefficient of Variation 13.3 % (11.5-14.5); RDW Standard Deviation 53.5 fL (36.4-46.3); Red Blood Count 2.89 M/uL (4.70-6.10); White Blood Count 5.77 K/ul (4.8-10.8)
--- NOTE | 2023-09-04 16:20 | XRay Report ---
XR chest 1V portable CLINICAL HISTORY: Chest pain, nonspecific TECHNIQUE: Single frontal radiograph of the chest was obtained. Comparison: Comparison is made to chest radiograph 09/02/2023 FINDINGS: Pacemaker defibrillator is seen. Cardiomegaly is noted. Lungs are underinflated but clear. No evidenc e of pleural effusion or pneumothorax. IMPRESSION: No acute chest disease. Cardiomegaly is noted. ACT 112: Negative or not required by law. Electronically signed by: Jc Coyle M.D. 09/04/2023 4:18 PM
[2023-09-04 16:26] LABS: BUN Creatinine Ratio 21.8 (10-20); Calcium 8.5 mg/dl (8.6-10.3); Creatinine Clr Calc Pharmacy 48.7 ml/min; Est GFR (African American) 46.6 ml/min; Est GFR (Non-African American) 40.2 ml/min; Potassium 3.7 mmol/L (3.5-5.1)
[2023-09-04 16:34] LABS: Troponin I High Sensitivity 44.2 pg/ml (0-20)
[2023-09-04] MEDS ORDERED: FUROSEMIDE 40 MG/4 ML VIAL IV ONE (16:52)
--- NOTE | 2023-09-04 17:09 | History & Physical Report ---
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 Acute on chronic heart failure with preserved ejection fraction, mostly right heart failure Admit to PCU Patient with almost 20 pound weight gain and significant lower extremity edema extending into proximal thigh Home dose of Lasix is alternating doses of 80 mg and 60 mg daily received home dose this a.m. along with 40mg IV in ED continue Lasix IV 40mg BID consult cardiology will update echo, last 2021 with EF 53%, mild akinesis of apex, moderate MR Last pacemaker interrogation was May 2023 Daily weights, strict I's and O's, low-sodium diet awan cath ordered Continue metoprolol and lisinopril CAD Chronic, stable Continue lisinopril, metoprolol and rosuvastatin Permanent atrial fibrillation Long-term anticoagulation Rate and rhythm controlled with metoprolol, pacemaker Eliquis for anticoagulation CKD stage III Baseline creatinine 1.5, chronic, stable Monitor closely with IV diuresis Nocturnal hypoxemia Oxygen at HS 2L Hx of CVA continue plavix, statin Dispo: [facility], consult PT/OT DNR/DNI PCP: Cherry Pt was seen and examined in collaboration with Dr. Catalan, please see addendum A total of 80 was spent coordinating, documenting, and providing care for this patient excluding time spent in the performance of separately billed services. This included personally viewing all current laboratories and imaging studies, medication reconciliation, outpatient chart review, and discussion with specialists. History of Present Illness Chief Complaint: Increased swelling and weight gain; referred by cardiology Dr. Cat Primary Care Provider: [facility] This is an 83-year-old male with significant past medical history of CAD, history of dilated ischemic cardiomyopathy with now improved and preserved EF, biventricular pacemaker/defibrillator implantation, mitral insufficiency, permanent atrial fibrillation anticoagulated on Eliquis, history of CVA and nocturnal hypoxia who presents to ED secondary to worsening lower extremity swelling and weight gain. Son at bedside who also helps elicit history. He was last seen by cardiology in clinic on 08/15/2023 and at that time was noted to have a 7 to 8 pound weight gain. At that point it was felt he was having a acute on chronic decompensation of CHF and his Lasix was increased. He then presented to ED on 09/02 for similar symptoms but was discharged back to personal care facility. It is noted in patient's outpatient records that weight has increased from 237-252. He complains of increased weight gain, lower ext swelling up to his thighs and clothes are much tighter. He denies any SOB, orthopnea, pnd, chest pain, dizziness, lightheaded, hemoptysis, f/c/s, abd pain, dysuria, increased urg/freq with urination, or change in bowel habits. He lives in [facility] and ambulates with cane at baseline. In ED pt received 40mg IV lasix. Allergies Allergy/AdvReac Type Severity Reaction Status Date / Time No Known Allergies Allergy Unverified 08/09/22 22:43 Home Medications Medication Instructions Recorded Confirmed Type acetaminophen 325 mg tablet 650 mg PO Q4 PRN Fever Or Pain 08/09/22 09/04/23 History apixaban 5 mg tablet (Eliquis) 5 mg PO BID 08/09/22 09/04/23 History cholecalciferol (vitamin D3) 50 50 mcg PO DAILY 08/09/22 09/04/23 History mcg (2,000 unit) tablet (Vitamin D3) clopidogrel 75 mg tablet 75 mg PO DAILY 08/09/22 09/04/23 History fluoxetine 10 mg capsule 10 mg PO DAILY 08/09/22 09/04/23 History fluticasone propionate 50 1 spray intranasal BID 08/09/22 09/04/23 History mcg/actuation nasal spray,suspension furosemide 20 mg tablet 60 mg PO Q2D 08/09/22 09/04/23 History furosemide 20 mg tablet 80 mg PO Q2D 08/09/22 09/04/23 History ketoconazole 2 % shampoo 1 applic topical 3XWK 08/09/22 09/04/23 History ketoconazole 2 % topical cream 1 applic topical BID PRN flares 08/09/22 09/04/23 History lisinopril 5 mg tablet 5 mg PO DAILY 08/09/22 09/04/23 History metoprolol succinate 25 mg 25 mg PO BID 08/09/22 09/04/23 History tablet,extended release 24 hr nitroglycerin 0.4 mg sublingual 0.4 mg sublingual UD PRN Chest Pain 08/09/22 09/04/23 History tablet rosuvastatin 10 mg tablet 10 mg PO HS 08/09/22 09/04/23 History Past Med/Surg History Medical History CAD (coronary artery disease) CKD (chronic kidney disease) stage 3, GFR 30-59 ml/min COVID-19 Generalized weakness Hematuria History of ischemic cardiomyopathy HLD (hyperlipidemia) HTN (hypertension) group home current use of 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 Nocturnal hypoxemia Permanent atrial fibrillation Stroke Surgical History AICD (automatic cardioverter/defibrillator) present Status post biventricular pacemaker and defib Family History Other Family history non-contributory Social History Smoking Status: Never smoker Hx Alcohol Use: No Hx Substance Use: No Preferred Language: Icelandic Communication Ability: Effective Psychology Assistant Required: No Beliefs That Will Affect Care: None Current Living Situation: Alone and Personal Care Facility Current Living Situation Comment: [facility] Feels Safe at Home: Yes Assistive Devices: Walker Review of Systems Review of Systems: All systems reviewed & are unremarkable except as noted in HPI & below Physical Exam Physical Exam: Constitutional: WD/WN,elderly, M, vitals as above, NAD, sitting up in bed, pl easant, conversing easily Head: Normocephalic, Atraumatic Eyes: PERRL, conjunctivae normal, anicteric sclerae ENMT: external ear and nose normal, oropharynx normal Neck: trachea midline, no thyromegaly normal visual inspection Respiratory: normal respiratory effort, lungs clear to auscultation, no wheeze, rales, rhonchi. Normal insp/exp effort, no accessory muscle use Cardiovascular: IRR/IRR, 1/6 JOJO noted, b/l pitting edema +3 extending to prox thigh Vessels: no JVD or carotid bruit Chest: normal inspection of chest Abdomen: normal bowel sounds, soft, nontender, no hepatosplenomegaly Musculoskeletal: no cyanosis or clubbing, AROM x 4 Skin: no rashes, warm and dry normal turgor Neurologic: PERRL, EOMI, accommodation nl, no face palsy, no dysarthria CN's II-XI intact bilaterally and moves all extremities Psychiatric: A+Ox3, euthymic affect : deferred Results & Data Results & Data Vital Signs (Past 12 Hours) Vital Signs Temp Pulse Pulse Resp BP BP Pulse Ox 09/04/23 15:58 76 20 112/73 98 09/04/23 15:57 98 09/04/23 15:47 79 09/04/23 15:37 36.8 C 79 18 112/73 99 O2 Del Method 09/04/23 15:58 Room Air 09/04/23 15:57 Room Air 09/04/23 15:47 09/04/23 15:37 Room Air Diagnostic Findings Chest X-Ray 09/04/23 15:42 XR chest 1V portable CLINICAL HISTORY: Chest pain, nonspecific TECHNIQUE: Single frontal radiograph of the chest was obtained. Comparison: Comparison is made to chest radiograph 09/02/2023 FINDINGS: Pacemaker defibrillator is seen. Cardiomegaly is noted. Lungs are underinflated but clear. No evidence of pleural effusion or pneumothorax. IMPRESSION: No acute chest disease. Cardiomegaly is noted. ACT 112: Negative or not required by law. Electronically signed by: Jc Coyle M.D. 09/04/2023 4:18 PM ECG Rate (beats per minute): 81 Rhythm: other Additional Comments: v paced rhythm, qtc 548ms COVID-19 Results Results COVID-19 Adm Lab Results: RBC 2.89 M/uL (4.70-6.10) L 09/04/23 WBC 5.77 K/ul (4.8-10.8) 09/04/23 Hgb 10.5 g/dl (14.0-18.0) L 09/04/23 Hct 31.3 % (42.0-52.0) L 09/04/23 Plt Count 83 K/uL (130-400) L 09/04/23 Neutrophils (%) (Auto) 61.4 % 09/04/23 Lymphocytes (%) (Auto) 16.8 % 09/04/23 Monocytes # (Auto) 0.75 K/uL (0.11-0.59) H 09/04/23 Eosinophils # (Auto) 0.41 K/uL (0.00-0.50) 09/04/23 Immature Granulocyte % (Auto) 0.5 % 09/04/23 Neutrophils # (Auto) 3.54 K/uL (1.40-6.50) 09/04/23 Lymphocytes # (Auto) 0.97 K/uL (1.20-3.40) L 09/04/23 Monocytes # (Auto) 0.75 K/uL (0.11-0.59) H 09/04/23 Eosinophils # (Auto) 0.41 K/uL (0.00-0.50) 09/04/23 Basophils # (Auto) 0.07 K/uL (0.00-0.20) 09/04/23 Immature Granulocyte # (Auto) 0.03 K/uL (0.01-0.20) 3 Na 141 mmol/L (136-145) 09/04/23 K 3.7 mmol/L (3.5-5.1) 09/04/23 Cl 110 mmol/L (98-107) H 09/04/23 CO2 28 mmol/L (21-32) 09/04/23 Anion Gap 3 (3-11) 09/04/23 BUN 34 mg/dl (6-23) H 09/04/23 Creatinine 1.56 mg/dl (0.6-1.4) H 09/04/23 BUN/Creatinine Ratio 21.8 (10-20) H 09/04/23 Glucose Level 87 mg/dl (70-99(Fasting)) 09/04/23 Ca 8.5 mg/dl (8.6-10.3) L 09/04/23 SARS-CoV-2, RNA, NAAT NEGATIVE (NEGATIVE) 09/04/23 Chest X-Ray 09/04/23 Code Status & VTE Plan Code Status DNR/DNI VTE Prophylaxis Plan VTE Prophylaxis will be ordered: No Reason for no VTE drug order: Treatment not indicated Supervising Physician Co-Signing Physician Notes I have seen and examined the patient and have discussed the case with the provider above. I agree with the assessment and plan as stated. 83-year-old man referred by Dr. Cat for worsening lower extremity swelling. Patient reports no increase shortness of breath, he denies any exercise intolerance and states he ambulates with a cane and walker intermittently. He denies any orthopnea or PND. His Lasix was recently increased with no improvement. Is a complicated history with an AICD in place and history of ischemic cardiomyopathy and permanent atrial fibrillation on Eliquis. My physical exam is consistent with that above. Labs, imaging, EKG reviewed. Anemia is at baseline. Thrombocytopenia is at baseline of 83, creatinine is around his baseline at 1.56, highly sensitive troponin is elevated to 43 however this is improved from 62.1 on 09/02 BNP is elevated at 326 but this is improved since 09/02 where it was 403. Chest x-ray reveals no vascular congestion or other acute disease. EKG reveals V paced rhythm with a rate of 81 and a QTc of 548. He is being admitted for acute on chronic heart failure with preserved ejection fraction and started on intravenous diuretics. Repeat echo was ordered as noted above. Continue home medications for other chronic medical problems which are stable. Cardiology consulted. DO Hossein
[2023-09-04] MEDS ORDERED: POLYETHYLENE (MIRALAX) 17 GM PACK PO PRN (21:25)
[2023-09-04] MEDS ORDERED: MAGNESIUM HYDROXIDE SUSP 30 ML UDC PO PRN (21:25)
[2023-09-04] MEDS ORDERED: ALUMINUM/MAGNESIUM SUSP 30 ML UDC PO PRN (21:25)
[2023-09-04] MEDS ORDERED: ACETAMINOPHEN 325 MG TAB PO PRN (21:25)
[2023-09-04] MEDS: FLUTICASONE PROPIONATE NA SPR 16 GM BTL SCH (22:21)
[2023-09-04] MEDS: APIXABAN 5 MG TABLET PO SCH (22:22)
[2023-09-04] MEDS: ROSUVASTATIN CALCIUM 10 MG TAB PO SCH (22:22)
--- NOTE | 2023-09-04 22:23 | Emergency Department Note ---
History of Present Illness General Chief Complaint: Swelling/Edema to Extremity Stated Complaint: FLUID RETENTION; POSSIBLE KIDNEY FAMILIAR Time Seen by Provider: 09/04/23 15:41 History of Present Illness Provider Complaint: shortness of breath Onset (ago): day(s) (3) Consistency/Duration: + progressively worsening Maximum Pain Intensity: 0 Relieved By: + upright position Exacerbated By: + lying flat and + exertion Known history of: congestive heart failure Associated symptoms: + orthopnea; no chest pain, no pain with inspiration, no fever, no cough, no wheezing, no sputum production or no nausea/vomiting HPI Narrative: Increased leg swelling. Home Medications Medication Instructions Recorded Confirmed Type acetaminophen 325 mg tablet 650 mg PO Q4 PRN Fever Or Pain 08/09/22 09/04/23 History apixaban 5 mg tablet (Eliquis) 5 mg PO BID 08/09/22 09/04/23 History cholecalciferol (vitamin D3) 50 50 mcg PO DAILY 08/09/22 09/04/23 History mcg (2,000 unit) tablet (Vitamin D3) clopidogrel 75 mg tablet 75 mg PO DAILY 08/09/22 09/04/23 History fluoxetine 10 mg capsule 10 mg PO DAILY 08/09/22 09/04/23 History fluticasone propionate 50 1 spray intranasal BID 08/09/22 09/04/23 History mcg/actuation nasal spray,suspension furosemide 20 mg tablet 60 mg PO Q2D 08/09/22 09/04/23 History furosemide 20 mg tablet 80 mg PO Q2D 08/09/22 09/04/23 History ketoconazole 2 % shampoo 1 applic topical 3XWK 08/09/22 09/04/23 History ketoconazole 2 % topical cream 1 applic topical BID PRN flares 08/09/22 09/04/23 History lisinopril 5 mg tablet 5 mg PO DAILY 08/09/22 09/04/23 History metoprolol succinate 25 mg 25 mg PO BID 08/09/22 09/04/23 History tablet,extended release 24 hr nitroglycerin 0.4 mg sublingual 0.4 mg sublingual UD PRN Chest Pain 08/09/22 09/04/23 History tablet rosuvastatin 10 mg tablet 10 mg PO HS 08/09/22 09/04/23 History Allergies Allergy/AdvReac Type Severity Reaction Status Date / Time No Known Allergies Allergy Unverified 08/09/22 22:43 Past Med/Surg History Medical History CAD (coronary artery disease) CKD (chronic kidney disease) stage 3, GFR 30-59 ml/min COVID-19 Generalized weakness Hematuria History of ischemic cardiomyopathy HLD (hyperlipidemia) HTN (hypertension) [facility] current use of 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 Nocturnal hypoxemia Permanent atrial fibrillation Stroke Surgical History AICD (automatic cardioverter/defibrillator) present Status post biventricular pacemaker and defib Family History Other Family history non-contributory Social History Smoking Status: Never smoker Hx Alcohol Use: No Hx Substance Use: No Preferred Language: Pashto Communication Ability: Effective C Programmer Required: No Beliefs That Will Affect Care: None Current Living Situation: Alone and Personal Care Facility Current Living Situation Comment: [facility] Feels Safe at Home: Yes Assistive Devices: Walker Physical Exam Vital Signs: Vital Signs - 24 hr 09/04/23 15:37 09/04/23 15:47 09/04/23 15:57 Temperature 36.8 C Temperature Source Temporal Artery Sc an Pulse Rate 79 79 Pulse Rate [Left A pical] Pulse Rhythm [Left Apical] Pulse Strength [Le ft Apical] Respiratory Rate 18 Respiratory Effort / Characteristics Respiratory Depth Blood Pressure 112/73 Blood Pressure [Ri ght Arm] Blood Pressure Leanna n 86 Blood Pressure Leanna n [Right Arm] Pulse Oximetry 99 98 Oxygen Delivery Me thod Room Air Room Air Sepsis Recent Feve r Within 48 Hours No Sepsis New/Unexpla ined Change in Men tania Status No Sepsis Action Take n by Nursing No Action Required 09/04/23 15:58 Temperature Temperature Source Pulse Rate Pulse Rate [Left A pical] 76 Pulse Rhythm [Left Apical] Regular Pulse Strength [Le ft Apical] Normal Respiratory Rate 20 Respiratory Effort / Characteristics Non-Labored Sponta neous Respiratory Depth Normal Blood Pressure Blood Pressure [Ri ght Arm] 112/73 Blood Pressure Leanna n Blood Pressure Leanna n [Right Arm] 86 Pulse Oximetry 98 Oxygen Delivery Me thod Room Air Sepsis Recent Feve r Within 48 Hours Sepsis New/Unexpla ined Change in Men tania Status Sepsis Action Take n by Nursing Physical Exam: Physical Exam GENERAL: oriented to person, place, and time. appears well-developed and well-nourished. HENT: Exam performed. - Head: Normocephalic and atraumatic. EYES: Conjunctivae and EOM are normal. Right eye exhibits no discharge. Left eye exhibits no discharge. No scleral icterus. NECK: Normal range of motion. Neck supple. No JVD present. CV: Normal rate, regular rhythm, normal heart sounds and intact distal pulses. There is 3+ pitting edema of the bilateral lower extremities. Palpable radial pulses bue. PULM/CHEST: Rales bilaterally. Rhonchi bilaterally. ABD: The abdomen is soft. There is no tenderness. NEURO: Motor and sensation grossly intact. SKIN: Skin is warm and dry. He is not diaphoretic. PSYCH: normal mood and affect. Behavior is normal. Judgment and thought content normal. Course Course 1541: The patient was evaluated in room A10. A complete history and physical exam was performed Cardiac monitoring: An order was placed for continuous cardiac monitoring. The monitor shows a rate of 80 with paced rhythm interpreted by md 1647: Vital signs stable. Labs show an elevated troponin and BNP that are improving from his visit to the emergency department 2 days ago. Son states t hat he does not want the patient to be discharged. Creatinine is mildly elevated at 1.56. Spoke with Dr. Jean [facility] cardiology who states that the patient can be given Lasix 40 mg IV push. Patient be admitted to the [facility] hospitalist team. Administered Medications Discontinued Medications Furosemide (Furosemide 40 Mg/4 Ml Vial) 40 mg IV ONE ONE Stop: 09/04/23 16:53 Last Admin: 09/04/23 17:32 Dose: 40 mg Documented By: ANDRADE Medical Decision Making Laboratory Data Attestation: I reviewed the patient's lab results. 09/04/23 13:50 09/04/23 13:50 Lab Results 09/04/23 09/04/23 09/04/23 Range/Units 13:50 13:50 13:50 WBC 5.77 (4.8-10.8) K/ul RBC 2.89 L (4.70-6.10) M/uL Hgb 10.5 L (14.0-18.0) g/dl Hct 31.3 L (42.0-52.0) % MCV 108.3 H (80.0-100.0) fL MCH 36.3 H (25.0-34.0) pg MCHC 33.5 (32.0-36.0) g/dL RDW Std Deviation 53.5 H (36.4-46.3) fL RDW Coeff of Tucker 13.3 (11.5-14.5) % Plt Count 83 L (130-400) K/uL MPV 11.1 (9.4-12.4) fL Immature Gran % (Auto) 0.5 % Neut % (Auto) 61.4 % Lymph % (Auto) 16.8 % [place] % (Auto) 13.0 % Eos % (Auto) 7.1 % Baso % (Auto) 1.2 % Neut # (Auto) 3.54 (1.40-6.50) K/uL Lymph # (Auto) 0.97 L (1.20-3.40) K/uL [place] # (Auto) 0.75 H (0.11-0.59) K/uL Eos # (Auto) 0.41 (0.00-0.50) K/uL Baso # (Auto) 0.07 (0.00-0.20) K/uL Immature Gran # (Auto) 0.03 (0.01-0.20) K/uL Sodium 141 (136-145) mmol/L Potassium 3.7 (3.5-5.1) mmol/L Chloride 110 H (98-107) mmol/L Carbon Dioxide 28 (21-32) mmol/L Anion Gap 3 (3-11) BUN 34 H (6-23) mg/dl Creatinine 1.56 H (0.6-1.4) mg/dl Est Cr Clr Drug Dosing 48.7 ml/min Est GFR ( Amer) 46.6 ml/min Est GFR (Non-Af Amer) 40.2 ml/min BUN/Creatinine Ratio 21.8 H (10-20) Glucose 87 (70-99(Fasting)) mg/dl Calcium 8.5 L (8.6-10.3) mg/dl Troponin I High Sens 44.2 H D (0-20) pg/ml B-Natriuretic Peptide 326 H (0-100) pg/ml Lipase 25 (11-82) U/L Imaging Data Radiologist's Impression: Chest X-Ray 09/04/23 15:42 XR chest 1V portable CLINICAL HISTORY: Chest pain, nonspecific TECHNIQUE: Single frontal radiograph of the chest was obtained. Comparison: Comparison is made to chest radiograph 09/02/2023 FINDINGS: Pacemaker defibrillator is seen. Cardiomegaly is noted. Lungs are underinflated but clear. No evidence of pleural effusion or pneumothorax. IMPRESSION: No acute chest disease. Cardiomegaly is noted. ACT 112: Negative or not required by law. Electronically signed by: Jc Coyle M.D. 09/04/2023 4:18 PM ECG Data Attestation: I personally reviewed and interpreted this ECG as follows: Interpretation: Paced rhythm with rate of 81. QRS 178 QTc 548. No ectopy. [facility] Narrative 1541: The patient was evaluated in room A10. A complete history and physical exam was performed Cardiac monitoring: An order was placed for continuous cardiac monitoring. The monitor shows a rate of 80 with paced rhythm interpreted by me 1647: Vital signs stable. Labs show an elevated troponin and BNP that are improving from his visit to the emergency department 2 days ago. Son states that he does not want the patient to be discharged. Creatinine is mildly elevated at 1.56. Spoke with Dr. Jean [facility] cardiology who states that the patient can be given Lasix 40 mg IV push. Patient be admitted to the [facility] hospitalist team. Impression & Plan Acute on chronic heart failure with preserved ejection fraction (HFpEF) Discharge Plan Visit Data Chief Complaint: Swelling/Edema to Extremity Stated Complaint: FLUID RETENTION; POSSIBLE KIDNEY FAMILIAR ED Provider: Solomon Go Discharge Problem: Acute on chronic heart failure with preserved ejection fraction (HFpEF) Patient Disposition: Admitted As Inpatient Discharge Instructions Interventions: ED Discharge Assessment Last Done: 09/04/23 20:57
[2023-09-04] MEDS: METOPROLOL SUCC 25MG EXT REL TAB PO SCH (22:24)
[2023-09-05 07:45] LABS: Hematocrit (blood only) 28.7 % (42.0-52.0); Hemoglobin 9.7 g/dl (14.0-18.0); Mean Corpuscular Hemoglobin 35.8 pg (25.0-34.0); Mean Corpuscular Hgb Conc 33.8 g/dL (32.0-36.0); Mean Corpuscular Volume 105.9 fL (80.0-100.0); Mean Platelet Volume 11.3 fL (9.4-12.4); Platelet Count 74 K/uL (130-400); RDW Standard Deviation 50.2 fL (36.4-46.3); Red Blood Count 2.71 M/uL (4.70-6.10); White Blood Count 7.27 K/ul (4.8-10.8)
[2023-09-05 07:56] LABS: BUN Creatinine Ratio 24.1 (10-20); Calcium 8.1 mg/dl (8.6-10.3); Creatinine Clr Calc Pharmacy 56.8 ml/min; Est GFR (African American) 56.5 ml/min; Est GFR (Non-African American) 48.7 ml/min; Magnesium 2.2 mg/dl (1.7-2.4); Potassium 3.7 mmol/L (3.5-5.1)
[2023-09-05] MEDS: FLUoxetine HCL 10 MG CAP PO SCH (08:05)
[2023-09-05] MEDS: lisinopril 5 MG TAB PO SCH (08:05)
[2023-09-05] MEDS: CLOPIDOGREL BISULFATE 75 MG TAB PO SCH (08:05)
[2023-09-05] MEDS: APIXABAN 5 MG TABLET PO SCH ×2 (08:06→21:03)
[2023-09-05] MEDS: CHOLECALCIFEROL 1,000 UNITS 25 MCG TAB PO SCH (08:06)
[2023-09-05] MEDS: FLUTICASONE PROPIONATE NA SPR 16 GM BTL SCH ×2 (08:07→21:03)
[2023-09-05] MEDS: FUROSEMIDE 40 MG/4 ML VIAL IV SCH ×2 (08:07→16:15)
[2023-09-05] MEDS: METOPROLOL SUCC 25MG EXT REL TAB PO SCH ×2 (08:07→21:04)
[2023-09-05 08:10] LABS: Thyroid Stimulating Hormone 0.437 uIu/ml (0.300-4.500)
[2023-09-05] MEDS: POTASSIUM CHLORIDE 10 MEQ TABCR PO SCH ×2 (08:54→21:04)
--- NOTE | 2023-09-05 10:00 | Cardiology Consultation ---
Date of Consultation September 05, 2023 Assessment & Plan (1) Right heart failure: (2) Acute on chronic heart failure with preserved ejection fraction (HFpEF): (3) Permanent atrial fibrillation: (4) HLD (hyperlipidemia): (5) HTN (hypertension): (6) Edema: (7) CAD (coronary artery disease): (8) CKD (chronic kidney disease) stage 3, GFR 30-59 ml/min: Plan Gentle IV diuresis with furosemide 40 mg every 12 hours Supplement potassium orally Add low-dose spironolactone 12.5 mg/day Sodium restrict to less than 2000 mg/day Consider Nephrology Consultation, RE: concern for nephrotic syndrome Continue angiotensin inhibition with lisinopril Continue Eliquis anticoagulation, 5 mg twice per day dosing for now Continue antiplatelet therapy with clopidogrel Continue evidence-based beta-easton therapy, metoprolol succinate 25 mg twice per day Continue statin therapy with rosuvastatin Supervising Physician Co-Signing Physician Notes 83-year-old patient seen and examined at the bedside. Sent in from outpatient clinic due to progressive edema and concerns regarding congestive heart failure. Urinalysis concerning for nephrotic syndrome. Patient responding to IV diuretic therapy with nearly 2.5 L urine output since admission. Blood pressure borderline hypotensive. Denies lightheadedness or dizziness. No cough or significant shortness of breath. Denies orthopnea or PND. Mainly complains of worsening edema. PE: VSS. Gen: NAD, AAO x3. Heart: Regular rhythm, normal S1-S2. 2/6 holosystolic murmur heard best at the apex. Lungs: Diminished breath sounds at the bases bilateral. Extremities: 2+ bilateral pretibial edema above the knees. A/P: Agree with above PA-C history, physical exam, assessment and plan. 83-year-old patient admitted with progressive heart failure with preserved eje ction fraction and concerns regarding possible nephrotic syndrome. Echocardiogram revealing severe valvular heart disease including severe mitral regurgitation and moderate to severe tricuspid regurgitation. Severe pulmonary hypertension with an estimated systolic pulmonary pressure of 64 mmHg. Continue IV Lasix 40 mg every 12 hours. Add low-dose spironolactone. Agree with nephrology consultation regarding proteinuria and possible nephrotic syndrome. Monitor daily weight, GFR, electrolytes, and fluid balance. History of Present Illness Reason for Consultation: CHF exacerbation Requesting Physician: Abbi Attending Physician: Tita History of Present Illness Mr. Leonidas Troy is a very pleasant 83-year-old male originally from [place], [place]. Patient presented to the [facility] ER with progressive significant lower extremity peripheral edema and weight gain despite titration of outpatient diuretics. Patient received 40 mg of IV furosemide in the ER and was admitted with a working diagnosis of acute decompensated right greater than left systolic and diastolic congestive heart failure. I's/O's -1725 mL overall. Renal function mildly improved since admission. Outpatient urinalysis and comprehensive metabolic panel raise concern for nephrotic syndrome. 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 Allergies Allergy/AdvReac Type Severity Reaction Status Date / Time No Known Allergies Allergy Unverified 08/09/22 22:43 Home Medications Medication Instructions Recorded Confirmed Type acetaminophen 325 mg tablet 650 mg PO Q4 PRN Fever Or Pain 08/09/22 09/04/23 History apixaban 5 mg tablet (Eliquis) 5 mg PO BID 08/09/22 09/04/23 History cholecalciferol (vitamin D3) 50 50 mcg PO DAILY 08/09/22 09/04/23 History mcg (2,000 unit) tablet (Vitamin D3) clopidogrel 75 mg tablet 75 mg PO DAILY 08/09/22 09/04/23 History fluoxetine 10 mg capsule 10 mg PO DAILY 08/09/22 09/04/23 History fluticasone propionate 50 1 spray intranasal BID 08/09/22 09/04/23 History mcg/actuation nasal spray,suspension furosemide 20 mg tablet 60 mg PO Q2D 08/09/22 09/04/23 History furosemide 20 mg tablet 80 mg PO Q2D 08/09/22 09/04/23 History ketoconazole 2 % shampoo 1 applic topical 3XWK 08/09/22 09/04/23 History ketoconazole 2 % topical cream 1 applic topical BID PRN flares 08/09/22 09/04/23 History lisinopril 5 mg tablet 5 mg PO DAILY 08/09/22 09/04/23 History metoprolol succinate 25 mg 25 mg PO BID 08/09/22 09/04/23 History tablet,extended release 24 hr nitroglycerin 0.4 mg sublingual 0.4 mg sublingual UD PRN Chest Pain 08/09/22 09/04/23 History tablet rosuvastatin 10 mg tablet 10 mg PO HS 08/09/22 09/04/23 History Patient History Medical History CAD (coronary artery disease) CKD (chronic kidney disease) stage 3, GFR 30-59 ml/min COVID-19 Generalized weakness Hematuria History of ischemic cardiomyopathy HLD (hyperlipidemia) [facility]ension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 Nocturnal hypoxemia Permanent atrial fibrillation Stroke Surgical History AICD (automatic cardioverter/defibrillator) present Status post biventricular pacemaker and defib Family History Other Family history non-contributory Social History Smoking Status: Never smoker Hx Alcohol Use: No Hx Substance Use: No Preferred Language: Amharic Communication Ability: Effective Workday Financials Consultant Required: No Beliefs That Will Affect Care: None Current Living Situation: Alone and Personal Care Facility Current Living Situation Comment: [facility] care Feels Safe at Home: Yes Assistive Devices: Cane and Walker Review of Systems Review of Systems: Complete Review of Systems: Constitutional: + Weight gain. No fevers. No chills. HEENT: No amaurosis fugax. Pulmonary: Nocturnal hypoxemia, untreated. Cardiac: See above. GI/Abd: No dysphagia. No melana or hematochezia. Denies liver problems. Vascular: + TIA/CVA. Hematologic: On Eliquis. No coagulation disorder Musculoskeletal: Arthritis. Skin: No rash. Neurologic: No history of seizure. Male : BPH. Endocrine: No thyroid problems. Complete Review of Systems is as stated above, negative, or noncontributory. Physical Exam Physical Exam: General: A&Ox3. NAD. HENT: Normocephalic. Atraumatic. Eyes: PER. Conjunctiva pink, sclera clear. Neck: No JVD. No HJR. Heart: Regular at 76 bpm. + Systolic murmur. Lungs: Clear to auscultation. Abdomen: +BS. Soft. Nontender. No masses or organomegaly. Extremities: 2-3+ edema into the thighs. No cyanosis. No clubbing. Limited neurological examination is without focal deficits. Pulses: Posterior tibial=0/4. Results & Data Vital Signs (Past 12 Hours) Vital Signs Temp Pulse Pulse Resp BP BP Pulse Ox 09/05/23 08:58 77 09/05/23 08:14 36.7 C 76 18 112/67 97 09/04/23 22:00 76 09/05/23 04:19 36.7 C 82 16 101/48 L 94 09/04/23 22:50 36.4 C L 79 18 100/61 97 09/04/23 22:22 82 117/79 O2 Del Method 09/05/23 08:58 09/05/23 08:14 Room Air 09/04/23 22:00 09/05/23 04:19 Room Air 09/04/23 22:50 Room Air 09/04/23 22:22 Laboratory Results Cardiac Enzymes 09/04/23 09/04/23 09/04/23 Range/Units 13:50 13:50 18:35 Troponin I High Sens 44.2 H D 42.6 H (0-20) pg/ml B-Natriuretic Peptide 326 H (0-100) pg/ml Coagulation 09/04/23 Range/Units 13:50 B-Natriuretic Peptide 326 H (0-100) pg/ml CBC 09/04/23 09/05/23 Range/Units 13:50 06:51 WBC 5.77 7.27 (4.8-10.8) K/ul RBC 2.89 L 2.71 L (4.70-6.10) M/uL Hgb 10.5 L 9.7 L (14.0-18.0) g/dl Hct 31.3 L 28.7 L (42.0-52.0) % Plt Count 83 L 74 L (130-400) K/uL Neut # (Auto) 3.54 (1.40-6.50) K/uL Lymph # (Auto) 0.97 L (1.20-3.40) K/uL [place] # (Auto) 0.75 H (0.11-0.59) K/uL Eos # (Auto) 0.41 (0.00-0.50) K/uL Baso # (Auto) 0.07 (0.00-0.20) K/uL Comprehensive Metabolic Panel 09/04/23 09/05/23 Range/Units 13:50 06:51 Sodium 141 141 (136-145) mmol/L Potassium 3.7 3.7 (3.5-5.1) mmol/L Chloride 110 H 110 H (98-107) mmol/L Carbon Dioxide 28 28 (21-32) mmol/L BUN 34 H 32 H (6-23) mg/dl Creatinine 1.56 H 1.33 (0.6-1.4) mg/dl Glucose 87 89 (70-99(Fasting)) mg/dl Calcium 8.5 L 8.1 L (8.6-10.3) mg/dl Intake and Output 09/04/23 09/05/23 09/05/23 22:59 06:59 14:59 Intake Total 0 / 0 Output Total 700 / 1725 1025 / 1725 Balance -700 / -1725 -1025 / -1725 Intake: Oral 0 / 0 Output: Urine 0 / 0 Urine Amount (Catheter) 700 / 1725 1025 / 1725 Soriano/Indwelling 700 / 1725 1025 / 1725 Other: Other Intake Source SIPS Weight 112.5 kg 112.7 kg Weight Measurement Method Standing Scale Standing Scale Diagnostic Findings October 2022 TTE Interpretation Summary (as per Dr. Lobato): There is no previous study available for comparison. Normal LV chamber size. Normal LV systolic function. Calculated LV ejection Fraction = 53% (bi-plane method of discs). There is thinning and akinesis of the apex with otherwise moderate concentric LVH and normal wall motion. There is moderate mitral annular calcification. The mitral valve leaflets are severely calcified. Mitral stenosis is absent. Moderate mitral regurgitation is present. Mild tricuspid regurgitation. Severe left atrial enlargement. Device interrogation on July 20, 2023 demonstrated appropriate function, 5.8 years remaining longevity. Mode: VVIR with lower rate set at 75 bpm. BiV paced 90%. 1 episode of nonsustained ventricular tachycardia noted since April 20, 2023. OptiVol elevated Telemetry: Ventricular paced in the 70s and 80s, occasional PVC
[2023-09-05] MEDS: SPIRONOLACTONE 12.5 MG TAB PO SCH (11:00)
--- NOTE | 2023-09-05 14:20 | Electrocardiogram Report ---
Test Reason : Blood Pressure : / mmHG Vent. Rate : 081 BPM Atrial Rate : 077 BPM P-R Int : 000 ms QRS Dur : 178 ms QT Int : 472 ms P-R-T Axes : 000 -78 077 degrees QTc Int : 548 ms Ventricular-paced rhythm with PVCs Abnormal ECG When compared with ECG of 02-SEP-2023 13:45, Vent. rate has increased BY 4 BPM Confirmed by Christophe Tilley ([id number]) on 09/05/2023 2:19:49 PM Referred By: REFERRED SELF Confirmed By:Cecil Tilley
--- NOTE | 2023-09-05 14:25 | Electrocardiogram Report ---
Test Reason : Blood Pressure : / mmHG Vent. Rate : 077 BPM Atrial Rate : 091 BPM P-R Int : 000 ms QRS Dur : 180 ms QT Int : 486 ms P-R-T Axes : 000 -51 074 degrees QTc Int : 549 ms Ventricular-paced rhythm PVCs and fusion beats Abnormal ECG When compared with ECG of 04-SEP-2023 15:49, (unconfirmed) Vent. rate has decreased BY 4 BPM Confirmed by Christophe Tilley ([id number]) on 09/05/2023 2:25:44 PM Referred By: REFERRED SELF Confirmed By:Cecil Tilley
--- NOTE | 2023-09-05 14:58 | Hospitalist Progress Note ---
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 Acute on chronic heart failure with preserved ejection fraction Right heart failure --CXR:No acute chest disease. Cardiomegaly is noted. BNP:326 --ECHO: EF 50 to 55%. Moderate concentric LVH. Apical septum and apical inferior wall is thinned and dyskinetic. Otherwise normal wall motion. Left atrium is severely dilated. Severe mitral regurgitation. Moderate to severe tricuspid regurgitation. Estimated systolic pulmonary pressure 64 mmHg. Dilated inferior vena cava with reduced collapsibility with sniff indicates an elevated right atrial pressure of 15mmHG. Last pacemaker interrogation was May 2023 -- Continue IV Lasix 40mg BID Monitor I's and O's, daily weight Continue fluid restriction Continue metoprolol, lisinopril Added Aldactone Appreciate cardiology input Proteinuria Will repeat urinalysis to assess proteinuria Protein immunoelectrophoresis pending Consider nephrology evaluation if needed Permanent atrial fibrillation Continue metoprolol as above On Eliquis for anticoagulation CAD Chronic, stable Continue Plavix, metoprolol and rosuvastatin Chronic anemia Chronic thrombocytopenia Drop in hemoglobin likely dilutional secondary to volume overload No acute bleeding issues Folate, B12 levels pending Monitor CBC CKD stage III Baseline Cr 1.5 Monitor renal function while on IV diuresis Avoid nephrotoxic agents as able Nocturnal hypoxemia Continue Oxygen at HS 2L H/O CVA continue Plavix, statin DVT Px: Eliquis Code Status DNR/DNI Admission and Anticipated Discharge Date Admission Date: September 04, 2023 Subjective Patient is seen and examined at bedside Denies any dyspnea, chest pain, dizziness, nausea, abdominal pain Still has significant lower extremity edema Leg soreness better today Discussed with cardiology today No other complaints Review of Systems Review of Systems: All systems reviewed & are unremarkable except as noted in Subjective Physical Exam Physical Exam: Physical Exam: Vitals signs as noted above General Appearance:Moderately built and nourished, no apparent distress, Elderly Head: normocephalic, Atraumatic Eyes: normal inspection, EOMI Neck: supple, Trachea midline Respiratory/Chest: Decreased breath sounds, CTA, No accessory muscle use Cardiovascular: S1, S2,+ murmur Abdomen/GI:Soft, Non tender, Bowel sounds present Extremities/Musculoskeletal:normal inspection, 3+ B/L LE edema Neurologic/Psych:AAOX3, grossly no focal neurological deficits Skin: normal color, warm Results & Data Results & Data Vital Signs (Past 12 Hours) Vital Signs Temp Pulse Pulse Resp BP Pulse Ox O2 Del Method 09/05/23 11:08 36.5 C 84 18 99/63 L 98 Room Air 09/05/23 08:58 77 09/05/23 08:14 36.7 C 76 18 112/67 97 Room Air 09/05/23 04:19 36.7 C 82 16 101/48 L 94 Room Air Laboratory Results Short CBC 09/04/23 09/05/23 Range/Units 13:50 06:51 WBC 5.77 7.27 (4.8-10.8) K/ul Hgb 10.5 L 9.7 L (14.0-18.0) g/dl Hct 31.3 L 28.7 L (42.0-52.0) % Plt Count 83 L 74 L (130-400) K/uL BMP 09/04/23 09/05/23 13:50 06:51 Sodium 141 141 Potassium 3.7 3.7 Chloride 110 H 110 H Carbon Dioxide 28 28 BUN 34 H 32 H Creatinine 1.56 H 1.33 Glucose 87 89 Calcium 8.5 L 8.1 L
[2023-09-05 15:29] LABS: Appearance Urine Cloudy (Clear); Bacteria Urine Automated Negative (Negative); Bilirubin Urine Negative (Negative); Blood Urine 3+ (Negative); Color Urine Orange; Glucose Urine UA Negative (Negative); Ketones Urine Negative (Negative); Leukocyte Esterase Urine 2+ (Negative); Nitrite Urine Negative (Negative); Protein Urine 4+ (Negative); RBC Urine Automated >30 /hpf (0-4); Specific Gravity Urine 1.022 (1.000-1.030); Urobilinogen Urine Negative (Negative); WBC Urine Automated >30 /hpf (0-5); pH Urine 6.5 (4.5-7.5)
[2023-09-05] MEDS: ROSUVASTATIN CALCIUM 10 MG TAB PO SCH (21:04)
[2023-09-06 07:32] LABS: Hematocrit (blood only) 31.5 % (42.0-52.0); Hemoglobin 10.5 g/dl (14.0-18.0); Mean Corpuscular Hgb Conc 33.3 g/dL (32.0-36.0); Mean Corpuscular Volume 107.9 fL (80.0-100.0); Mean Platelet Volume 10.8 fL (9.4-12.4); Platelet Count 71 K/uL (130-400); RDW Coefficient of Variation 13.3 % (11.5-14.5); Red Blood Count 2.92 M/uL (4.70-6.10); White Blood Count 8.08 K/ul (4.8-10.8)
[2023-09-06 07:48] LABS: BUN Creatinine Ratio 22.4 (10-20); Calcium 8.2 mg/dl (8.6-10.3); Creatinine Clr Calc Pharmacy 52.6 ml/min; Est GFR (African American) 51.8 ml/min; Est GFR (Non-African American) 44.7 ml/min; Magnesium 2.1 mg/dl (1.7-2.4); Potassium 3.4 mmol/L (3.5-5.1)
[2023-09-06] MEDS: lisinopril 5 MG TAB PO SCH (08:15)
[2023-09-06] MEDS: METOPROLOL SUCC 25MG EXT REL TAB PO SCH ×2 (08:15→20:43)
[2023-09-06] MEDS: CHOLECALCIFEROL 1,000 UNITS 25 MCG TAB PO SCH (08:15)
[2023-09-06] MEDS: POTASSIUM CHLORIDE 10 MEQ TABCR PO SCH (08:15)
[2023-09-06] MEDS: CLOPIDOGREL BISULFATE 75 MG TAB PO SCH (08:15)
[2023-09-06] MEDS: FLUoxetine HCL 10 MG CAP PO SCH (08:15)
[2023-09-06] MEDS: SPIRONOLACTONE 12.5 MG TAB PO SCH (08:15)
[2023-09-06] MEDS: APIXABAN 5 MG TABLET PO SCH ×2 (08:16→20:42)
[2023-09-06] MEDS: FUROSEMIDE 40 MG/4 ML VIAL IV SCH ×2 (08:16→16:53)
[2023-09-06] MEDS: FLUTICASONE PROPIONATE NA SPR 16 GM BTL SCH ×2 (08:16→20:43)
[2023-09-06] MEDS ORDERED: POTASSIUM CHLORIDE CRTAB 20 MEQ TABCR PO ONE (09:38)
--- NOTE | 2023-09-06 13:56 | Cardiology Progress Note ---
Date of Service September 06, 2023 Assessment & Plan (1) Right heart failure: (2) Acute on chronic heart failure with preserved ejection fraction (HFpEF): (3) Permanent atrial fibrillation: (4) HLD (hyperlipidemia): (5) HTN (hypertension): (6) Edema: (7) CAD (coronary artery disease): (8) CKD (chronic kidney disease) stage 3, GFR 30-59 ml/min: Plan: Hypoalbuminemia and significant proteinuria Plan Gentle IV diuresis with furosemide 40 mg every 12 hours Supplement potassium orally Add low-dose spironolactone 12.5 mg/day Sodium restrict to less than 2000 mg/day Consider Nephrology Consultation, RE: concern for nephrotic syndrome Continue angiotensin inhibition with lisinopril Continue Eliquis anticoagulation, 5 mg twice per day dosing for now Continue antiplatelet therapy with clopidogrel Continue evidence-based beta-easton therapy, metoprolol succinate 25 mg twice per day Continue statin therapy with rosuvastatin 09/06/2023 Patient responding to IV diuretics we will continue renal function being maintained Low-dose spironolactone added to regimen Laboratory studies as noted significant hypoalbuminemia and 4+ proteinuria Admission and Anticipated Discharge Date Admission Date: September 04, 2023 Subjective Patient seen and examined, chart, medications, telemetry reviewed. Patient looks and feels better with IV diuretics. Upper extremity edema improved lower extremity still persistent but improving No chest pains no tachypalpitations no dizziness Oxygenating well on room air Review of Systems Review of Systems: All systems reviewed & are unremarkable except as noted in Subjective Physical Exam Physical Exam: General: A&Ox3. NAD. HENT: Normocephalic. Atraumatic. Eyes: PER. Conjunctiva pink, sclera clear. Neck: No JVD. No HJR. Heart: Regular at 76 bpm. + Systolic murmur. Lungs: Clear to auscultation. Abdomen: +BS. Soft. Nontender. No masses or organomegaly. Extremities: 2-3+ edema into the thighs. No cyanosis. No clubbing. Limited neurological examination is without focal deficits. Pulses: Posterior tibial=0/4. Constitutional: WD/WN, vitals as above no acute distress Eyes: PERRL, conjunctivae normal, anicteric sclerae ENMT: external ear and nose normal, oropharynx normal Neck: trachea midline, no thyromegaly Respiratory: normal respiratory effort, lungs clear to auscultation Cardiovascular: Rate/Rhythm: regular rate and regular rhythm Heart Sounds: + murmur Extremities: + edema Gastrointestinal (Abdomen): normal bowel sounds, soft, nontender, no hepatosplenomegaly Musculoskeletal: no cyanosis or clubbing, extremities motor strength 5/5 Results & Data Vital Signs (Past 12 Hours) Vital Signs Temp Pulse Pulse Resp BP BP Pulse Ox 09/06/23 11:11 36.4 C L 79 19 121/81 96 09/06/23 07:20 86 09/06/23 07:20 09/06/23 07:29 36.4 C L 76 21 122/74 122 H 09/06/23 02:40 36.7 C 79 18 125/73 97 O2 Del Method 09/06/23 11:11 Room Air 09/06/23 07:20 09/06/23 07:20 Room Air 09/06/23 07:29 Room Air 09/06/23 02:40 Room Air Laboratory Results Laboratory Results - last 24 hr 09/05/23 09/06/23 09/06/23 15:05 07:00 07:00 WBC 8.08 RBC 2.92 L Hgb 10.5 L Hct 31.5 L MCV 107.9 H MCH 36.0 H MCHC 33.3 RDW Std Deviation 53.0 H RDW Coeff of Tucker 13.3 Plt Count 71 L MPV 10.8 Sodium 141 Potassium 3.4 L Chloride 109 H Carbon Dioxide 28 Anion Gap 4 BUN 32 H Creatinine 1.43 H Est Cr Clr Drug Dosing 52.6 Est GFR ( Amer) 51.8 Est GFR (Non-Af Amer) 44.7 BUN/Creatinine Ratio 22.4 H Glucose 107 H Calcium 8.2 L Magnesium 2.1 Urine Color [place] Urine Appearance Cloudy A Urine pH 6.5 Ur Specific [place] 1.022 Urine Protein 4+ H Urine Glucose (UA) Negative Urine Ketones Negative Urine Blood 3+ H Urine Nitrite Negative Urine Bilirubin Negative Urine Urobilinogen Negative Ur Leukocyte Esterase 2+ H Urine WBC (Auto) >30 H Urine RBC (Auto) >30 H U Hyaline Cast (Auto) 10-30 H U Epithel Cells (Auto) 5-10 H Urine Bacteria (Auto) Negative
--- NOTE | 2023-09-06 17:06 | Hospitalist Progress Note ---
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 Acute on chronic heart failure with preserved ejection fraction Right heart failure --CXR:No acute chest disease. Cardiomegaly is noted. BNP:326 --ECHO: EF 50 to 55%. Moderate concentric LVH. Apical septum and apical inferior wall is thinned and dyskinetic. Otherwise normal wall motion. Left atrium is severely dilated. Severe mitral regurgitation. Moderate to severe tricuspid regurgitation. Estimated systolic pulmonary pressure 64 mmHg. Dilated inferior vena cava with reduced collapsibility with sniff indicates an elevated right atrial pressure of 15mmHG. Last pacemaker interrogation was May 2023 -- Continue IV Lasix 40mg BID Monitor I's and O's, daily weight Continue fluid restriction Continue metoprolol, lisinopril Added Aldactone Appreciate cardiology input Continue current management Proteinuria Repeat urinalysis showed proteinuria Protein immunoelectrophoresis pending Consider nephrology evaluation if needed Inpatient Vs Outpatient Permanent atrial fibrillation Continue metoprolol as above On Eliquis for anticoagulation CAD Chronic, stable Continue Plavix, metoprolol and rosuvastatin Chronic anemia Chronic thrombocytopenia Drop in hemoglobin likely dilutional secondary to volume overload No acute bleeding issues Folate, B12 levels pending Monitor CBC CKD stage III Baseline Cr 1.5 Monitor renal function while on IV diuresis Avoid nephrotoxic agents as able Cr 1.4 today Nocturnal hypoxemia Continue Oxygen at HS 2L H/O CVA continue Plavix, statin DVT Px: Eliquis Code Status DNR/DNI Disposition PT OT prior to discharge Admission and Anticipated Discharge Date Admission Date: September 04, 2023 Subjective Patient is seen and examined at bedside Still has significant lower extremity edema Offers no new complaints Denies any dyspnea, chest pain, dizziness, nausea, abdominal pain Review of Systems Review of Systems: All systems reviewed & are unremarkable except as noted in Subjective Physical Exam Physical Exam: Physical Exam: Vitals signs as noted above General Appearance:Moderately built and nourished, no apparent distress, Elderly Head: normocephalic, Atraumatic Eyes: normal inspection, EOMI Neck: supple, Trachea midline Respiratory/Chest: Decreased breath sounds, CTA, No accessory muscle use Cardiovascular: S1, S2,+ murmur Abdomen/GI:Soft, Non tender, Bowel sounds present Extremities/Musculoskeletal:normal inspection, 3+ B/L LE edema Neurologic/Psych:AAOX3, grossly no focal neurological deficits Skin: normal color, warm Results & Data Results & Data Vital Signs (Past 12 Hours) Vital Signs Temp Pulse Pulse Resp BP BP Pulse Ox 09/06/23 16:08 36.3 C L 79 20 137/89 97 09/06/23 11:11 36.4 C L 79 19 121/81 96 09/06/23 07:20 86 09/06/23 07:20 09/06/23 07:29 36.4 C L 76 21 122/74 122 H O2 Del Method 09/06/23 16:08 Room Air 09/06/23 11:11 Room Air 09/06/23 07:20 09/06/23 07:20 Room Air 09/06/23 07:29 Room Air Laboratory Results Short CBC 09/06/23 Range/Units 07:00 WBC 8.08 (4.8-10.8) K/ul Hgb 10.5 L (14.0-18.0) g/dl Hct 31.5 L (42.0-52.0) % Plt Count 71 L (130-400) K/uL BMP 09/06/23 07:00 Sodium 141 Potassium 3.4 L Chloride 109 H Carbon Dioxide 28 BUN 32 H Creatinine 1.43 H Glucose 107 H Calcium 8.2 L
[2023-09-06] MEDS: POTASSIUM CHLORIDE CRTAB 20 MEQ TABCR PO SCH (20:44)
[2023-09-06] MEDS: ROSUVASTATIN CALCIUM 10 MG TAB PO SCH (20:44)
[2023-09-07 07:00] LABS: Hematocrit (blood only) 29.8 % (42.0-52.0); Mean Corpuscular Hgb Conc 33.6 g/dL (32.0-36.0); Mean Corpuscular Volume 107.2 fL (80.0-100.0); Mean Platelet Volume 11.3 fL (9.4-12.4); Platelet Count 62 K/uL (130-400); RDW Coefficient of Variation 13.2 % (11.5-14.5); RDW Standard Deviation 52.7 fL (36.4-46.3); Red Blood Count 2.78 M/uL (4.70-6.10); White Blood Count 7.51 K/ul (4.8-10.8)
[2023-09-07 07:15] LABS: BUN Creatinine Ratio 24.2 (10-20); Calcium 7.9 mg/dl (8.6-10.3); Creatinine Clr Calc Pharmacy 50.3 ml/min; Est GFR (African American) 49.2 ml/min; Est GFR (Non-African American) 42.5 ml/min
[2023-09-07] MEDS: SPIRONOLACTONE 12.5 MG TAB PO SCH (08:23)
[2023-09-07] MEDS: POTASSIUM CHLORIDE CRTAB 20 MEQ TABCR PO SCH ×2 (08:23→21:49)
[2023-09-07] MEDS: CHOLECALCIFEROL 1,000 UNITS 25 MCG TAB PO SCH (08:23)
[2023-09-07] MEDS: CLOPIDOGREL BISULFATE 75 MG TAB PO SCH (08:23)
[2023-09-07] MEDS: lisinopril 5 MG TAB PO SCH (08:23)
[2023-09-07] MEDS: FLUTICASONE PROPIONATE NA SPR 16 GM BTL SCH ×2 (08:23→21:49)
[2023-09-07] MEDS: METOPROLOL SUCC 25MG EXT REL TAB PO SCH ×2 (08:23→21:49)
[2023-09-07] MEDS: APIXABAN 5 MG TABLET PO SCH ×2 (08:23→21:48)
[2023-09-07] MEDS: FUROSEMIDE 40 MG/4 ML VIAL IV SCH ×2 (08:23→16:54)
[2023-09-07] MEDS: FLUoxetine HCL 10 MG CAP PO SCH (08:23)
--- NOTE | 2023-09-07 14:09 | Cardiology Progress Note ---
Date of Service September 07, 2023 Assessment & Plan (1) Right heart failure: (2) Acute on chronic heart failure with preserved ejection fraction (HFpEF): (3) Permanent atrial fibrillation: (4) HLD (hyperlipidemia): (5) HTN (hypertension): (6) Edema: (7) CAD (coronary artery disease): (8) CKD (chronic kidney disease) stage 3, GFR 30-59 ml/min: Plan: Hypoalbuminemia and significant proteinuria Plan Gentle IV diuresis with furosemide 40 mg every 12 hours Supplement potassium orally Add low-dose spironolactone 12.5 mg/day Sodium restrict to less than 2000 mg/day Consider Nephrology Consultation, RE: concern for nephrotic syndrome Continue angiotensin inhibition with lisinopril Continue Eliquis anticoagulation, 5 mg twice per day dosing for now Continue antiplatelet therapy with clopidogrel Continue evidence-based beta-easton therapy, metoprolol succinate 25 mg twice per day Continue statin therapy with rosuvastatin 09/06/2023 Patient responding to IV diuretics we will continue renal function being maintained Low-dose spironolactone added to regimen Laboratory studies as noted significant hypoalbuminemia and 4+ proteinuria 09/07/2023 Continue IV diuretics as patient is responding on renal function tolerating Admission and Anticipated Discharge Date Admission Date: September 04, 2023 Subjective Patient seen and examined, chart, medications, telemetry reviewed Diuresing nicely lower extremity edema improving upper extremity edema resolved. Note chest pains, dizziness, lightheadedness. Blood pressure tolerating diuresis Renal function remaining stable Review of Systems Review of Systems: All systems reviewed & are unremarkable except as noted in Subjective Physical Exam Physical Exam: 4. Constitutional: WD/WN, vitals as above no acute distress Eyes: PERRL, conjunctivae normal, anicteric sclerae ENMT: external ear and nose normal, oropharynx normal Neck: trachea midline, no thyromegaly Respiratory: normal respiratory effort, lungs clear to auscultation Cardiovascular: Rate/Rhythm: regular rate and regular rhythm Heart Sounds: + murmur Extremities: + edema (2+ improved) Gastrointestinal (Abdomen): normal bowel sounds, soft, nontender, no hepatosplenomegaly Musculoskeletal: no cyanosis or clubbing, extremities motor strength 5/5 Results & Data Vital Signs (Past 12 Hours) Vital Signs Temp Pulse Pulse Pulse Resp BP Pulse Ox 09/07/23 11:54 36.9 C 74 18 114/73 98 09/07/23 07:25 83 09/07/23 07:25 09/07/23 07:26 36.5 C 78 16 122/76 95 09/07/23 03:00 37.2 C 70 16 118/72 94 O2 Del Method 09/07/23 11:54 Room Air 09/07/23 07:25 09/07/23 07:25 Nasal Cannula 09/07/23 07:26 Room Air 09/07/23 03:00 Room Air
--- NOTE | 2023-09-07 16:03 | Hospitalist Progress Note ---
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 Acute on chronic heart failure with preserved ejection fraction Right heart failure --CXR:No acute chest disease. Cardiomegaly is noted. BNP:326 --ECHO: EF 50 to 55%. Moderate concentric LVH. Apical septum and apical inferior wall is thinned and dyskinetic. Otherwise normal wall motion. Left atrium is severely dilated. Severe mitral regurgitation. Moderate to severe tricuspid regurgitation. Estimated systolic pulmonary pressure 64 mmHg. Dilated inferior vena cava with reduced collapsibility with sniff indicates an elevated right atrial pressure of 15mmHG. Last pacemaker interrogation was May 2023 -- Continue IV Lasix 40mg BID Monitor I's and O's, daily weight Continue fluid restriction Continue metoprolol, lisinopril Added Aldactone Appreciate cardiology input Diuresing well Renal function stable Proteinuria Repeat urinalysis showed proteinuria Protein immunoelectrophoresis pending Consider nephrology evaluation if needed Inpatient Vs Outpatient Permanent atrial fibrillation Continue metoprolol as above On Eliquis for anticoagulation CAD Chronic, stable Continue Plavix, metoprolol and rosuvastatin Chronic anemia Chronic thrombocytopenia Drop in hemoglobin likely dilutional secondary to volume overload No acute bleeding issues Normal Folate, B12 levels Monitor CBC CKD stage III Baseline Cr 1.5 Monitor renal function while on IV diuresis Avoid nephrotoxic agents as able Cr 1.4 today Nocturnal hypoxemia Continue Oxygen at HS 2L H/O CVA continue Plavix, statin DVT Px: Eliquis Code Status DNR/DNI Disposition PT OT prior to discharge Admission and Anticipated Discharge Date Admission Date: September 04, 2023 Subjective Patient is seen and examined at bedside Subjectively feels well No new complaints Leg edema improving Diuresing well Denies any dyspnea, chest pain, dizziness, nausea, abdominal pain Review of Systems Review of Systems: All systems reviewed & are unremarkable except as noted in Subjective Physical Exam Physical Exam: Physical Exam: Vitals signs as noted above General Appearance:Moderately built and nourished, no apparent distress, Elderly Head: normocephalic, Atraumatic Eyes: normal inspection, EOMI Neck: supple, Trachea midline Respiratory/Chest: Decreased breath sounds, CTA, No accessory muscle use Cardiovascular: S1, S2,+ murmur Abdomen/GI:Soft, Non tender, Bowel sounds present Extremities/Musculoskeletal:normal inspection, 3+ B/L LE edema Neurologic/Psych:AAOX3, grossly no focal neurological deficits Skin: normal color, warm Results & Data Results & Data Vital Signs (Past 12 Hours) Vital Signs Temp Pulse Pulse Resp BP Pulse Ox O2 Del Method 09/07/23 15:01 36.8 C 76 18 119/73 96 Room Air 09/07/23 11:54 36.9 C 74 18 114/73 98 Room Air 09/07/23 07:25 83 09/07/23 07:25 Nasal Cannula 09/07/23 07:26 36.5 C 78 16 122/76 95 Room Air
[2023-09-07] MEDS: ROSUVASTATIN CALCIUM 10 MG TAB PO SCH (21:50)
[2023-09-08 07:41] LABS: BUN Creatinine Ratio 23.8 (10-20); Calcium 7.9 mg/dl (8.6-10.3); Creatinine Clr Calc Pharmacy 50.7 ml/min; Est GFR (African American) 50.1 ml/min; Est GFR (Non-African American) 43.2 ml/min; Magnesium 2.1 mg/dl (1.7-2.4); Potassium 3.9 mmol/L (3.5-5.1)
[2023-09-08] MEDS: METOPROLOL SUCC 25MG EXT REL TAB PO SCH ×2 (08:26→22:08)
[2023-09-08] MEDS: SPIRONOLACTONE 12.5 MG TAB PO SCH (08:26)
[2023-09-08] MEDS: APIXABAN 5 MG TABLET PO SCH ×2 (08:26→22:07)
[2023-09-08] MEDS: POTASSIUM CHLORIDE CRTAB 20 MEQ TABCR PO SCH ×2 (08:26→22:09)
[2023-09-08] MEDS: CHOLECALCIFEROL 1,000 UNITS 25 MCG TAB PO SCH (08:26)
[2023-09-08] MEDS: CLOPIDOGREL BISULFATE 75 MG TAB PO SCH (08:26)
[2023-09-08] MEDS: FLUoxetine HCL 10 MG CAP PO SCH (08:27)
[2023-09-08] MEDS: FLUTICASONE PROPIONATE NA SPR 16 GM BTL SCH ×2 (08:27→22:08)
[2023-09-08] MEDS: lisinopril 5 MG TAB PO SCH (08:27)
[2023-09-08] MEDS: FUROSEMIDE 40 MG/4 ML VIAL IV SCH ×2 (08:31→16:49)
[2023-09-08] MEDS: DOXYCYCLINE HYCLATE 100 MG CAP PO SCH ×2 (10:21→22:08)
--- NOTE | 2023-09-08 10:27 | Nephrology Consultation ---
Date of Consultation September 08, 2023 Assessment & Plan (1) Abnormal urine findings: w/ microhematuria and longstanding massive dipstick proteinuria, both for at least the past year. concern for nephrotic syndrome in this context of volume overload. weighed 112.7 standing on 09/05; weighs 109.3 on 09/08. >needs renal ultrasound > reviewed; no dane cause of proteinuria/hematuria >needs spot prot/creat ratio >>challenges calculating spot ratio and will do 24 hr study for protein, creatinine >likely to need further serologic work up and for AM have ordered repeat albumin, bmp, kappa / lambda, UPEP/ROCIO, anti PLA2R, complement, hepatitis serologies, cryoglobulins, PROMISE >would continue with OP urology w/u for microscopic hematuria after d/c >f/u pending spep -if renal bx needed will likely recomend as OP/at [facility] care coordinated w/ Dr Rivers (2) CKD (chronic kidney disease) stage 3, GFR 30-59 ml/min: CKD baseline creatinine about 1.5-1.7 may through present; early 2022 had been more like 1.2. 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 PMH CAD s/p multiple prior coronary interventions [facility], past dilated ischemic cardiomyopathy with now improved/ preserved EF, biventricular pacemaker/defibrillator implantation, mitral insufficiency, permanent atrial fibrillation on Eliquis, nocturnal hypoxia, TIA, vascular dementia, HTN; also this year w/ progressive CKD. Baseline creatinine 1.2 at beginning of 2022 (eGFR about 55); as of mid year more in 1.5-1.7 range (eGFR about 40) on admission he was 1.5 and has stayed in this range. Chronic ambulatory dysfunction/uses cane at baseline. Recently est w/ urology [facility] and plan is to start microhematuria w/u w/ cystoscopy planned; notably at that visit urologist commented on BLE edema and redness. had covid aug 2023. pt had been seen in cardiology clinic mid aug w/ 7-8 lb wt gain which did not respond to lasix increase; also seen in ER 09/02 for similar sx w/ weight increased from 237 > 252 lb per report and proximal BL lower extremity swelling and tighter clothing. Cardiology and primary service concerned for possible nephrotic syndrome. Wts in [facility] clinics this year: Dec 255-260 lb; 07/24 (day his creat was 2.2) 236 lb; 08/15 242 lb. Admission labs notable for serum albumin 2.8 on presentation with >1 year of 3+ microhematuria/dipstick proteinuria He is currently receiving lasix 40 mg bid IV, FR2L/day, and spironolactone 12.5 mg daily w/ K 20 mEq bid. Also on lisinopril 5 mg daily, metoprolol, doxycycline. Repeat CXR from today pending. has had 3+ dipstick proteinuria on multiple checks done here since 2021; no quantification to date; urine sediment is generaly quite active including on this admission. Feels his edema is improving and no longer in proximal LE; denies increased abdominal girth. Denies sob or cough/orthopnea. no N/v. no chest pain. tolerating awan. no focal numbness or weakness. no musculoskeletal pain. Allergies Allergy/AdvReac Type Severity Reaction Status Date / Time No Known Allergies Allergy Unverified 08/09/22 22:43 Home Medications Medication Instructions Recorded Confirmed Type acetaminophen 325 mg tablet 650 mg PO Q4 PRN Fever Or Pain 08/09/22 09/04/23 History apixaban 5 mg tablet (Eliquis) 5 mg PO BID 08/09/22 09/04/23 History cholecalciferol (vitamin D3) 50 50 mcg PO DAILY 08/09/22 09/04/23 History mcg (2,000 unit) tablet (Vitamin D3) clopidogrel 75 mg tablet 75 mg PO DAILY 08/09/22 09/04/23 History fluoxetine 10 mg capsule 10 mg PO DAILY 08/09/22 09/04/23 History fluticasone propionate 50 1 spray intranasal BID 08/09/22 09/04/23 History mcg/actuation nasal spray,suspension furosemide 20 mg tablet 60 mg PO Q2D 08/09/22 09/04/23 History furosemide 20 mg tablet 80 mg PO Q2D 08/09/22 09/04/23 History ketoconazole 2 % shampoo 1 applic topical 3XWK 08/09/22 09/04/23 History ketoconazole 2 % topical cream 1 applic topical BID PRN flares 08/09/22 09/04/23 History lisinopril 5 mg tablet 5 mg PO DAILY 08/09/22 09/04/23 History metoprolol succinate 25 mg 25 mg PO BID 08/09/22 09/04/23 History tablet,extended release 24 hr nitroglycerin 0.4 mg sublingual 0.4 mg sublingual UD PRN Chest Pain 08/09/22 09/04/23 History tablet rosuvastatin 10 mg tablet 10 mg PO HS 08/09/22 09/04/23 History Patient History Medical History (Updated 09/08/23 @ 10:51 by Gisele Daugherty MD, PhD) CAD (coronary artery disease) CKD (chronic kidney disease) stage 3, GFR 30-59 ml/min COVID-19 Generalized weakness Hematuria History of ischemic cardiomyopathy HLD (hyperlipidemia) 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 Nocturnal hypoxemia Permanent atrial fibrillation Stroke Vascular dementia [facility] neurology Surgical History AICD (automatic cardioverter/defibrillator) present Status post biventricular pacemaker and defib Family History Other Family history non-contributory Social History Smoking Status: Never smoker Hx Alcohol Use: No Hx Substance Use: No Preferred Language: Portuguese Communication Ability: Effective 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: No Beliefs That Will Affect Care: None Current Living Situation: Alone and Personal Care Facility Current Living Situation Comment: [place] 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 Feels Safe at Home: Yes Assistive Devices: Cane and Walker Review of Systems Review of Systems: All systems reviewed & are unremarkable except as noted in HPI & below Physical Exam Constitutional: well developed and well nourished Eyes: EOM intact bilaterally ENMT: Ears: no external ear abnormality Nose: no external nose abnormality Mouth: + dry oral mucous membranes Neck: no nuchal rigidity Respiratory: normal respiratory effort Auscultation: + diminished lung sounds (gurwinder R base) Cardiovascular: Rate/Rhythm: + irregularly irregular Extremities: + edema (2+ pedal and trace -1+ BLE) Gastrointestinal (Abdomen): Inspection/Auscultation: normal bowel sounds Percussion/Palpation: abdomen soft; abdomen nontender Musculoskeletal: Extremities: strength 5/5 throughout Skin: no rashes, warm and dry Neurologic: shaw, fluent speech, no tremor Psychiatric: Orientation: alert, oriented to person and oriented to place Results & Data Vital Signs (Past 12 Hours) Vital Signs Temp Pulse Pulse Resp BP Pulse Ox O2 Del Method 09/08/23 08:52 78 09/08/23 07:53 36.8 C 77 18 127/78 95 Room Air 09/08/23 03:00 36.5 C 81 18 128/75 93 Room Air 09/08/23 01:52 95 H 09/07/23 23:00 36.3 C L 80 19 125/76 96 Room Air Laboratory Results 09/07/23 06:10 09/08/23 06:54 Diagnostic Findings cxr 09/04 clear 09/04 TTE EF 50%, mCLVH; severe LA dil/ MRgg dil IVC PASP 64
--- NOTE | 2023-09-08 10:49 | XRay Report ---
XR chest 1V portable HISTORY: 83 years-old Male cough acute cough COMPARISON: 09/04/2023 TECHNIQUE: AP view of the chest FINDINGS: Cardiac silhouette is enlarged. Left subclavian pacer/AICD. Patchy right mid lung and right basilar a irspace opacities. Small pleural effusions. Pulmonary vascular congestion with interstitial coarsenin g. No pneumothorax. Bones appear grossly intact. IMPRESSION: 1. Cardiomegaly with mild pulmonary edema and small pleural effusions. 2. Asymmetric right midlung and right basilar airspace opacities. Correlate clinically to exclude sup erimposed pneumonia. ACT 112: Negative or not required by law. The above report was generated using voice recognition software. It may contain grammatical, syntax o r spelling errors. Electronically signed by: Tin Smith M.D. 09/08/2023 10:48 AM
[2023-09-08 12:58] LABS: Creatinine Urine Random 68.4 mg/dl; Total Protein Urine Random > 1000.0 mg/dl (0-11.9)
--- NOTE | 2023-09-08 14:45 | Ultrasound Report ---
RENAL ULTRASOUND HISTORY: proteinuria COMPARISON: Abdomen and pelvis CT 08/09/2022. FINDINGS: Right kidney: 12.9 cm. A 1.9 cm upper pole cyst. This is similar to the prior CT examination. No hydr onephrosis. Normal corticomedullary differentiation and cortical thickness. Left kidney: 10.9 cm. No hydronephrosis. Normal corticomedullary differentiation and cortical thickne ss. Bladder: The bladder is decompressed by a Soriano catheter. IMPRESSION: 1. No hydronephrosis. 2. The bladder is decompressed by a Soriano catheter. ACT 112: Negative or not required by law. Electronically signed by: Boy Gomez M.D. 09/08/2023 2:44 PM
--- NOTE | 2023-09-08 15:25 | Hospitalist Progress Note ---
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 Acute on chronic heart failure with preserved ejection fraction Right heart failure --CXR:No acute chest disease. Cardiomegaly is noted. BNP:326 --ECHO: EF 50 to 55%. Moderate concentric LVH. Apical septum and apical inferior wall is thinned and dyskinetic. Otherwise normal wall motion. Left atrium is severely dilated. Severe mitral regurgitation. Moderate to severe tricuspid regurgitation. Estimated systolic pulmonary pressure 64 mmHg. Dilated inferior vena cava with reduced collapsibility with sniff indicates an elevated right atrial pressure of 15mmHG. Last pacemaker interrogation was May 2023 -- Continue IV Lasix 40mg BID Monitor I's and O's, daily weight Continue fluid restriction Continue metoprolol, lisinopril Added Aldactone Appreciate cardiology input Diuresing well Clinically improving renal function stable Acute bronchitis Possible Pneumonia --CXR:Cardiomegaly with mild pulmonary edema and small pleural effusions. Asymmetric right midlung and right basilar airspace opacities. Correlate clinically to exclude superimposed pneumonia. Procalcitonin Empirically started on cefuroxime, doxycycline Saturating well on room air Proteinuria Repeat urinalysis showed proteinuria Protein immunoelectrophoresis pending --Renal USD: No hydronephrosis. The bladder is decompressed by a Soriano catheter. -- Protein/Creatinine ratio pending Nephrology consulted Monitor volume status Permanent atrial fibrillation Continue metoprolol as above On Eliquis for anticoagulation CAD Chronic, stable Continue Plavix, metoprolol and rosuvastatin Chronic anemia Chronic thrombocytopenia Drop in hemoglobin likely dilutional secondary to volume overload No acute bleeding issues Normal Folate, B12 levels Monitor CBC CKD stage III Baseline Cr 1.5 Monitor renal function while on IV diuresis Avoid nephrotoxic agents as able Cr 1.4 today Nocturnal hypoxemia Continue Oxygen at HS 2L H/O CVA continue Plavix, statin DVT Px: Eliquis Code Status DNR/DNI Disposition PT OT prior to discharge Admission and Anticipated Discharge Date Admission Date: September 04, 2023 Subjective Patient is seen and examined at bedside Leg edema improving Reports having cough with yellowish expectoration No other complaints Discussed with cardiology and nephrology today Denies any dyspnea, chest pain, dizziness, nausea, abdominal pain Review of Systems Review of Systems: All systems reviewed & are unremarkable except as noted in Subjective Physical Exam Physical Exam: Physical Exam: Vitals signs as noted above General Appearance:Moderately built and nourished, no apparent distress, Elderly Head: normocephalic, Atraumatic Eyes: normal inspection, EOMI Neck: supple, Trachea midline Respiratory/Chest: Decreased breath sounds, CTA, No accessory muscle use Cardiovascular: S1, S2,+ murmur Abdomen/GI:Soft, Non tender, Bowel sounds present Extremities/Musculoskeletal:normal inspection, 3+ B/L LE edema Neurologic/Psych:AAOX3, grossly no focal neurological deficits Skin: normal color, warm Results & Data Results & Data Vital Signs (Past 12 Hours) Vital Signs Temp Pulse Pulse Resp BP BP Pulse Ox 09/08/23 12:58 36.7 C 77 20 134/84 98 09/08/23 08:52 78 09/08/23 07:53 36.8 C 77 18 127/78 95 O2 Del Method 09/08/23 12:58 Room Air 09/08/23 08:52 09/08/23 07:53 Room Air Laboratory Results BMP 09/08/23 06:54 Sodium 141 Potassium 3.9 Chloride 111 H Carbon Dioxide 27 BUN 35 H Creatinine 1.47 H Glucose 95 Calcium 7.9 L
[2023-09-08] MEDS: cefUROXime axetil 500 MG TAB PO SCH ×2 (16:47→22:08)
--- NOTE | 2023-09-08 17:15 | Cardiology Progress Note ---
Date of Service September 08, 2023 Assessment & Plan (1) Right heart failure: (2) Acute on chronic heart failure with preserved ejection fraction (HFpEF): (3) Permanent atrial fibrillation: (4) HLD (hyperlipidemia): (5) HTN (hypertension): (6) Edema: (7) CAD (coronary artery disease): (8) CKD (chronic kidney disease) stage 3, GFR 30-59 ml/min: Plan: Hypoalbuminemia and significant proteinuria Plan Gentle IV diuresis with furosemide 40 mg every 12 hours Supplement potassium orally Add low-dose spironolactone 12.5 mg/day Sodium restrict to less than 2000 mg/day Consider Nephrology Consultation, RE: concern for nephrotic syndrome Continue angiotensin inhibition with lisinopril Continue Eliquis anticoagulation, 5 mg twice per day dosing for now Continue antiplatelet therapy with clopidogrel Continue evidence-based beta-easton therapy, metoprolol succinate 25 mg twice per day Continue statin therapy with rosuvastatin 09/06/2023 Patient responding to IV diuretics we will continue renal function being maintained Low-dose spironolactone added to regimen Laboratory studies as noted significant hypoalbuminemia and 4+ proteinuria 09/07/2023 Continue IV diuretics as patient is responding on renal function tolerating 09/08/2023 Responding to current therapies we will continue IV diuretics reassess in a.m. Admission and Anticipated Discharge Date Admission Date: September 04, 2023 Subjective Patient seen and examined, chart, medications, telemetry reviewed Patient is responding to IV diuretics with renal function remaining stable Appreciate nephrology input Patient pleased with the sense of reduced edema of arms and legs No arrhythmias on telemetry Physical Exam Physical Exam: 4. Constitutional: WD/WN, vitals as above no acute distress Eyes: PERRL, conjunctivae normal, anicteric sclerae ENMT: external ear and nose normal, oropharynx normal Neck: trachea midline, no thyromegaly Respiratory: normal respiratory effort, lungs clear to auscultation Cardiovascular: Rate/Rhythm: regular rate and regular rhythm Heart Sounds: + murmur Extremities: + edema (2+ improved) Gastrointestinal (Abdomen): normal bowel sounds, soft, nontender, no hepatosplenomegaly Musculoskeletal: no cyanosis or clubbing, extremities motor strength 5/5 Results & Data Vital Signs (Past 12 Hours) Vital Signs Temp Pulse Pulse Resp BP BP Pulse Ox 09/08/23 15:55 36.9 C 76 20 133/83 97 09/08/23 12:58 36.7 C 77 20 134/84 98 09/08/23 08:52 78 09/08/23 07:53 36.8 C 77 18 127/78 95 O2 Del Method 09/08/23 15:55 Room Air 09/08/23 12:58 Room Air 09/08/23 08:52 09/08/23 07:53 Room Air Laboratory Results Laboratory Results - last 24 hr 09/08/23 09/08/23 06:54 12:00 Sodium 141 Potassium 3.9 Chloride 111 H Carbon Dioxide 27 Anion Gap 3 BUN 35 H Creatinine 1.47 H Est Cr Clr Drug Dosing 50.7 Est GFR ( Amer) 50.1 Est GFR (Non-Af Amer) 43.2 BUN/Creatinine Ratio 23.8 H Glucose 95 Calcium 7.9 L Magnesium 2.1 Ur Random Creatinine 68.4 U Random Total Protein > 1000.0 H Protein/Creatinin Ratio TNP
[2023-09-08] MEDS: ROSUVASTATIN CALCIUM 10 MG TAB PO SCH (22:09)
[2023-09-09] MEDS: SPIRONOLACTONE 12.5 MG TAB PO SCH (08:12)
[2023-09-09] MEDS: DOXYCYCLINE HYCLATE 100 MG CAP PO SCH ×2 (08:12→20:00)
[2023-09-09] MEDS: APIXABAN 5 MG TABLET PO SCH ×2 (08:12→20:00)
[2023-09-09] MEDS: METOPROLOL SUCC 25MG EXT REL TAB PO SCH ×2 (08:13→20:00)
[2023-09-09] MEDS: CLOPIDOGREL BISULFATE 75 MG TAB PO SCH (08:13)
[2023-09-09] MEDS: POTASSIUM CHLORIDE CRTAB 20 MEQ TABCR PO SCH ×2 (08:13→20:01)
[2023-09-09] MEDS: lisinopril 5 MG TAB PO SCH (08:13)
[2023-09-09] MEDS: cefUROXime axetil 500 MG TAB PO SCH ×2 (08:14→20:01)
[2023-09-09] MEDS: FLUTICASONE PROPIONATE NA SPR 16 GM BTL SCH ×2 (08:14→20:01)
[2023-09-09] MEDS: CHOLECALCIFEROL 1,000 UNITS 25 MCG TAB PO SCH (08:14)
[2023-09-09] MEDS: FLUoxetine HCL 10 MG CAP PO SCH (08:14)
[2023-09-09] MEDS: FUROSEMIDE 40 MG/4 ML VIAL IV SCH ×2 (08:15→17:10)
[2023-09-09 08:52] LABS: Hematocrit (blood only) 33.6 % (42.0-52.0); Hemoglobin 11.2 g/dl (14.0-18.0); Mean Corpuscular Hemoglobin 35.3 pg (25.0-34.0); Mean Corpuscular Hgb Conc 33.3 g/dL (32.0-36.0); Mean Platelet Volume 11.1 fL (9.4-12.4); Platelet Count 86 K/uL (130-400); RDW Standard Deviation 50.9 fL (36.4-46.3); Red Blood Count 3.17 M/uL (4.70-6.10); White Blood Count 5.04 K/ul (4.8-10.8)
[2023-09-09 09:11] LABS: BUN Creatinine Ratio 22.1 (10-20); Calcium 8.1 mg/dl (8.6-10.3); Creatinine Clr Calc Pharmacy 45.6 ml/min; Est GFR (African American) 44.2 ml/min; Est GFR (Non-African American) 38.1 ml/min
--- NOTE | 2023-09-09 11:11 | Cardiology Progress Note ---
Date of Service September 09, 2023 Assessment & Plan (1) Right heart failure: (2) Acute on chronic heart failure with preserved ejection fraction (HFpEF): (3) Permanent atrial fibrillation: (4) HLD (hyperlipidemia): (5) HTN (hypertension): (6) Edema: (7) CAD (coronary artery disease): (8) CKD (chronic kidney disease) stage 3, GFR 30-59 ml/min: Plan: Hypoalbuminemia and significant proteinuria Plan Gentle IV diuresis with furosemide 40 mg every 12 hours Supplement potassium orally Add low-dose spironolactone 12.5 mg/day Sodium restrict to less than 2000 mg/day Consider Nephrology Consultation, RE: concern for nephrotic syndrome Continue angiotensin inhibition with lisinopril Continue Eliquis anticoagulation, 5 mg twice per day dosing for now Continue antiplatelet therapy with clopidogrel Continue evidence-based beta-easton therapy, metoprolol succinate 25 mg twice per day Continue statin therapy with rosuvastatin 09/06/2023 Patient responding to IV diuretics we will continue renal function being maintained Low-dose spironolactone added to regimen Laboratory studies as noted significant hypoalbuminemia and 4+ proteinuria 09/07/2023 Continue IV diuretics as patient is responding on renal function tolerating 09/08/2023 Responding to current therapies we will continue IV diuretics reassess in a.m. 09/09/2023 Plan continue IV diuretics through today as renal function relatively stable. We will transition to oral torsemide in a.m. with possible return to care facility at that time Admission and Anticipated Discharge Date Admission Date: September 04, 2023 Subjective Patient seen and examined, chart, medications, telemetry reviewed Patient overall feels better. Less lower extremity edema with resolve of upper extremity edema. No chest pain or shortness of breath. No fevers or chills Review of Systems Review of Systems: All systems reviewed & are unremarkable except as noted in Subjective Physical Exam Physical Exam: 4. Constitutional: WD/WN, vitals as above no acute distress Eyes: PERRL, conjunctivae normal, anicteric sclerae ENMT: external ear and nose normal, oropharynx normal Neck: trachea midline, no thyromegaly Respiratory: normal respiratory effort, lungs clear to auscultation Cardiovascular: Rate/Rhythm: regular rate and regular rhythm Heart Sounds: + murmur Extremities: + edema (2+ improved) Gastrointestinal (Abdomen): normal bowel sounds, soft, nontender, no hep atosplenomegaly Musculoskeletal: no cyanosis or clubbing, extremities motor strength 5/5 Results & Data Vital Signs (Past 12 Hours) Vital Signs Temp Pulse Pulse Resp BP Pulse Ox O2 Del Method 09/09/23 07:59 36.8 C 75 19 129/77 97 Room Air 09/08/23 23:30 77 09/09/23 02:44 36.5 C 88 18 111/67 95 Room Air
--- NOTE | 2023-09-09 11:44 | Nephrology Progress Note ---
Date of Service September 09, 2023 Assessment & Plan (1) Abnormal urine findings: Plan: w/ microhematuria and longstanding massive dipstick proteinuria, both for at ast the past year. concern for nephrotic syndrome in this context of volume overload. weighed 112.7 standing on 09/05; weighs 109.3 on 09/08, 108.6 on 09/09. spot prot/creat ratio could not be calculated, renal u/s unremarkable. >continue 24 hr study for protein, creatinine >f/u serologic work up >albumin, kappa / lambda, UPEP/ROCIO, anti PLA2R, complement, hepatitis serologies, cryoglobulins, PROMISE >would continue with OP urology w/u for microscopic hematuria after d/c >f/u pending spep -if renal bx needed [place] likely [place] [facility] [place] (2) CKD (chronic kidney disease) stage 3, GFR 30-59 ml/min: Plan: CKD baseline creatinine about 1.5-1.7 may through present; early 2022 had been more like 1.2. -needs OP neph f/u (3) Edema: Plan: was 112.7 kg on admission standing scale 09/05 > 109.3 kg 09/08; 108.6 on 09/09 agree w/ current diuretics as per cardiology Admission and Anticipated Discharge Date Admission Date: September 04, 2023 Subjective no interval events. pt eager for d/c. denies sob, n/v. feels edema better. Review of Systems Review of Systems: All systems reviewed & are unremarkable except as noted in Subjective Physical Exam Constitutional: well developed and well nourished (sitting up in chair on RA) Eyes: EOM intact bilaterally ENMT: Ears: no external ear abnormality Nose: no external nose abnormality Mouth: + dry oral mucous membranes Neck: no nuchal rigidity Respiratory: normal respiratory effort Auscultation: + diminished lung sounds Cardiovascular: Rate/Rhythm: + irregularly irregular Extremities: + edema (2+ pedal and trace -1+ BLE) Gastrointestinal (Abdomen): Inspection/Auscultation: normal bowel sounds Percussion/Palpation: abdomen soft; abdomen nontender Musculoskeletal: Extremities: strength 5/5 throughout Skin: no rashes, warm and dry Psychiatric: Orientation: alert, oriented to person and oriented to place Results & Data Vital Signs (Past 12 Hours) Vital Signs Temp Pulse Resp BP Pulse Ox O2 Del Method 09/09/23 07:59 36.8 C 75 19 129/77 97 Room Air 09/09/23 02:44 36.5 C 88 18 111/67 95 Room Air Laboratory Results 09/09/23 08:17 09/09/23 08:17
--- NOTE | 2023-09-09 16:36 | Hospitalist Progress Note ---
Date of Service September 09, 2023 Assessment & Plan (1) Acute on chronic heart failure with preserved ejection fraction (HFpEF): (2) Right heart failure: (3) CAD (coronary artery disease): (4) Permanent atrial fibrillation: (5) detention current use of 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: (6) CKD (chronic kidney disease) stage 3, GFR 30-59 ml/min: Plan Patient is an 83 yr male with H/O CAD, history of dilated ischemic cardiomyopathy with now improved and preserved EF, biventricular pacemaker/def ibrillator implantation, mitral insufficiency, permanent atrial fibrillation anticoagulated on Eliquis, history of CVA and nocturnal hypoxia who presents to ED secondary to worsening lower extremity swelling and shortness of breath.Patient with almost 20 pound weight gain and significant lower extremity edema extending into proximal thigh. Acute on chronic heart failure with preserved ejection fraction Right heart failure --CXR:No acute chest disease. Cardiomegaly is noted. BNP:326 --ECHO: EF 50 to 55%. Moderate concentric LVH. Apical septum and apical inferior wall is thinned and dyskinetic. Otherwise normal wall motion. Left atrium is severely dilated. Severe mitral regurgitation. Moderate to severe tricuspid regurgitation. Estimated systolic pulmonary pressure 64 mmHg. Dilated inferior vena cava with reduced collapsibility with sniff indicates an elevated right atrial pressure of 15mmHG. Last pacemaker interrogation was May 2023 -- Continue IV Lasix Monitor I's and O's, daily weight Continue fluid restriction Continue metoprolol, lisinopril Added Aldactone Appreciate cardiology input Diuresing well Renal function stable Leg edema much improved Plan to be transition to p.o. torsemide tomorrow Acute bronchitis Possible Pneumonia --CXR:Cardiomegaly with mild pulmonary edema and small pleural effusions. Asymmetric right midlung and right basilar airspace opacities. Correlate clinically to exclude superimposed pneumonia. Procalcitonin Empirically started on cefuroxime, doxycycline Saturating well on room air Less cough today Proteinuria Repeat urinalysis showed proteinuria Protein immunoelectrophoresis pending --Renal USD: No hydronephrosis. The bladder is decompressed by a Soriano catheter. Monitor volume status Appreciate nephrology input Proteinuria work-up pending Permanent atrial fibrillation Continue metoprolol as above On Eliquis for anticoagulation CAD Chronic, stable Continue Plavix, metoprolol and rosuvastatin Chronic anemia Chronic thrombocytopenia Drop in hemoglobin likely dilutional secondary to volume overload No acute bleeding issues Normal Folate, B12 levels Monitor CBC CKD stage III Baseline Cr 1.5 Monitor renal function while on IV diuresis Avoid nephrotoxic agents as able Cr 1.6 today Nocturnal hypoxemia Continue Oxygen at HS 2L H/O CVA continue Plavix, statin DVT Px: Eliquis Code Status DNR/DNI Disposition PT OT prior to discharge Admission and Anticipated Discharge Date Admission Date: September 04, 2023 Subjective Patient is seen and examined at bedside Subjectively feels well Leg edema much improved Offers no new complaints Eager to get discharged Denies any dyspnea, chest pain, dizziness, nausea, abdominal pain Review of Systems Review of Systems: All systems reviewed & are unremarkable except as noted in Subjective Physical Exam Physical Exam: Physical Exam: Vitals signs as noted above General Appearance:Moderately built and nourished, no apparent distress, Elderly Head: normocephalic, Atraumatic Eyes: normal inspection, EOMI Neck: supple, Trachea midline Respiratory/Chest: Decreased breath sounds, CTA, No accessory muscle use Cardiovascular: S1, S2,+ murmur Abdomen/GI:Soft, Non tender, Bowel sounds present Extremities/Musculoskeletal:normal inspection, 2-3+ B/L LE edema Neurologic/Psych:AAOX3, grossly no focal neurological deficits Skin: normal color, warm Results & Data Results & Data Vital Signs (Past 12 Hours) Vital Signs Temp Pulse Pulse Resp BP Pulse Ox O2 Del Method 09/09/23 15:21 36.2 C L 76 18 122/74 96 Room Air 09/09/23 11:57 36.7 C 81 19 103/68 94 Room Air 09/09/23 07:59 36.8 C 75 19 129/77 97 Room Air Laboratory Results Short CBC 09/09/23 Range/Units 08:17 WBC 5.04 (4.8-10.8) K/ul Hgb 11.2 L (14.0-18.0) g/dl Hct 33.6 L (42.0-52.0) % Plt Count 86 L (130-400) K/uL BMP 09/09/23 08:17 Sodium 140 Potassium 4.0 Chloride 108 H Carbon Dioxide 27 BUN 36 H Creatinine 1.63 H Glucose 137 H Calcium 8.1 L
[2023-09-09] MEDS: ROSUVASTATIN CALCIUM 10 MG TAB PO SCH (20:00)
[2023-09-10 07:42] LABS: Albumin 2.5 g/dL (3.8-4.8); Alpha 1 Globulin 0.3 g/dL (0.2-0.3); Alpha 2 Globulin 0.8 g/dL (0.5-0.9); Beta-1-Globulin 0.3 g/dL (0.4-0.6); Beta-2-Globulin 0.3 g/dL (0.2-0.5); Gamma Globulin 0.6 g/dL (0.8-1.7); Monoclonal Protein Band 1 0.3 g/dL (NONE DETECTED); Monoclonal Protein Band 2 DNR g/dL (NONE DETECTED); Monoclonal Protein Band 3 DNR g/dL (NONE DETECTED); Total Protein 4.8 g/dL (6.1-8.1)
[2023-09-10] MEDS: lisinopril 5 MG TAB PO SCH (07:50)
[2023-09-10] MEDS: CHOLECALCIFEROL 1,000 UNITS 25 MCG TAB PO SCH (07:50)
[2023-09-10] MEDS: CLOPIDOGREL BISULFATE 75 MG TAB PO SCH (07:51)
[2023-09-10] MEDS: FLUoxetine HCL 10 MG CAP PO SCH (07:51)
[2023-09-10] MEDS: METOPROLOL SUCC 25MG EXT REL TAB PO SCH (07:51)
[2023-09-10] MEDS: POTASSIUM CHLORIDE CRTAB 20 MEQ TABCR PO SCH (07:51)
[2023-09-10] MEDS: cefUROXime axetil 500 MG TAB PO SCH (07:51)
[2023-09-10] MEDS: SPIRONOLACTONE 12.5 MG TAB PO SCH (07:51)
[2023-09-10] MEDS: DOXYCYCLINE HYCLATE 100 MG CAP PO SCH (07:52)
[2023-09-10] MEDS: FLUTICASONE PROPIONATE NA SPR 16 GM BTL SCH (07:52)
[2023-09-10] MEDS: APIXABAN 5 MG TABLET PO SCH (07:52)
[2023-09-10 07:53] LABS: Albumin Level 2.2 gm/dl (3.4-5.0); BUN Creatinine Ratio 22.3 (10-20); Calcium 7.9 mg/dl (8.6-10.3); Creatinine Clr Calc Pharmacy 44.4 ml/min; Est GFR (African American) 43.2 ml/min; Est GFR (Non-African American) 37.3 ml/min
[2023-09-10] MEDS ORDERED: TORSEMIDE 10 MG TAB PO SCH (10:45)
[2023-09-10] MEDS ORDERED: TORSEMIDE 20 MG TAB PO SCH (11:00)
--- NOTE | 2023-09-10 11:01 | Nephrology Progress Note ---
Date of Service September 10, 2023 Assessment & Plan (1) Abnormal urine findings: Plan: w/ microhematuria and longstanding massive dipstick proteinuria, both for at ast the past year. concern for nephrotic syndrome in this context of volume overload. weighed 112.7 standing on 09/05; weighs 109.3 on 09/08, 108.6 on 09/09, 106.5 on 09/10. spot prot/creat ratio could not be calculated, renal u/s unremarkable. Serum albumin low 2's; his edema has responded relativley easily to diuresis >needs to complete 24 hr study for protein, creatinine >f/u still pending serologic work up > kappa / lambda, UPEP/ROCIO, anti PLA2R, complement, hepatitis serologies, cryoglobulins, PROMISE >would continue with OP urology w/u for microscopic hematuria after d/c >f/u pending spep -if renal bx needed will likely recommend as OP/at [facility] [place] NEPHRO D/C RECOMMENDATIONS -continue torsemide 40 mg daily, K 20 mEq bid, spironolactone 12.5 mg daily, lisinopril 5 mg daily -bmp as OP w/in a week of d/c >>>needs HOSPITAL DISCHARGE nephro appt with Dr Michelle Hsu about 2 weeks after discharge and BMP by neph RN about 3 days before -ideally should have early AM standing weights at facility after hospital d/c > 3X weekly x 3 wks after hospital d/c and bring log to appts ->2 gm daily sodium diet and 2L fluid limit at hospital d/c Care coordinated w/ Dr Rivers (2) CKD (chronic kidney disease) stage 3, GFR 30-59 ml/min: Plan: CKD baseline creatinine about 1.5-1.7 may through present; early 2022 had been more like 1.2. -needs OP neph f/u BMP is stable today; note progressive CKD (3) Edema: Plan: was 112.7 kg on admission standing scale 09/05 > 109.3 kg 09/08; 108.6 on 09/09 agree w/ current diuretics as per cardiology Admission and Anticipated Discharge Date Admission Date: September 04, 2023 Subjective no interval events clinically. CHANGED from IV lasix to torsemide 40 mg daily w/ 20 mEq bid K and 12.5 mg daily spironolactone. pt remains anxious for d/c; denies sob, n/v, pain, edema Review of Systems Review of Systems: All systems reviewed & are unremarkable except as noted in Subjective Physical Exam Constitutional: well developed and well nourished (lying in bed on RA) Eyes: EOM intact bilaterally ENMT: Ears: no external ear abnormality Nose: no external nose abnormality Mouth: + dry oral mucous membranes Neck: no nuchal rigidity Respiratory: normal respiratory effort Auscultation: + diminished lung sounds Cardiovascular: Rate/Rhythm: + irregularly irregular Extremities: + edema (trace BLE) Gastrointestinal (Abdomen): Inspection/Auscultation: normal bowel sounds P ercussion/Palpation: abdomen soft; abdomen nontender Musculoskeletal: Extremities: strength 5/5 throughout Skin: no rashes, warm and dry Psychiatric: Orientation: alert, oriented to person and oriented to place Insight: + limited insight Results & Data Vital Signs (Past 12 Hours) Vital Signs Temp Pulse Pulse Resp BP Pulse Ox O2 Del Method 09/10/23 08:01 36.5 C 75 18 120/72 95 Room Air 09/10/23 07:15 79 09/10/23 02:43 36.6 C 79 18 125/74 97 Room Air Laboratory Results 09/09/23 08:17 09/10/23 07:14
--- NOTE | 2023-09-10 11:28 | Cardiology Progress Note ---
Date of Service September 10, 2023 Assessment & Plan (1) Right heart failure: (2) Acute on chronic heart failure with preserved ejection fraction (HFpEF): (3) Permanent atrial fibrillation: (4) HLD (hyperlipidemia): (5) HTN (hypertension): (6) Edema: (7) CAD (coronary artery disease): (8) CKD (chronic kidney disease) stage 3, GFR 30-59 ml/min: Plan: Hypoalbuminemia and significant proteinuria Plan Gentle IV diuresis with furosemide 40 mg every 12 hours Supplement potassium orally Add low-dose spironolactone 12.5 mg/day Sodium restrict to less than 2000 mg/day Consider Nephrology Consultation, RE: concern for nephrotic syndrome Continue angiotensin inhibition with lisinopril Continue Eliquis anticoagulation, 5 mg twice per day dosing for now Continue antiplatelet therapy with clopidogrel Continue evidence-based beta-easton therapy, metoprolol succinate 25 mg twice per day Continue statin therapy with rosuvastatin 09/06/2023 Patient responding to IV diuretics we will continue renal function being maintained Low-dose spironolactone added to regimen Laboratory studies as noted significant hypoalbuminemia and 4+ proteinuria 09/07/2023 Continue IV diuretics as patient is responding on renal function tolerating 09/08/2023 Responding to current therapies we will continue IV diuretics reassess in a.m. 09/09/2023 Plan continue IV diuretics through today as renal function relatively stable. We will transition to oral torsemide in a.m. with possible return to care facility at that time 09/10/2023 Right heart failure symptoms improving. Medication adjustments as made. We will change diuresis to oral torsemide 40 mg/day Stable from cardiac standpoint Continue CHF instructions Daily weights sodium restriction and fluid restriction in hospital post discharge Admission and Anticipated Discharge Date Admission Date: September 04, 2023 Subjective Patient seen and examined, chart, medications, telemetry reviewed Continues to improve clinically per patient good oxygenation on room air Lower extremity edema improving upper extremity edema resolved No chest pains or dizziness no tachypalpitations Renal function remaining stable despite diuresis Review of Systems Review of Systems: All systems reviewed & are unremarkable except as noted in Subjective Physical Exam Constitutional: no acute distress Eyes: PERRL, conjunctivae normal, anicteric sclerae Neck: trachea midline, no thyromegaly Respiratory: normal respiratory effort, lungs clear to auscultation Cardiovascular: Rate/Rhythm: regular rate and regular rhythm (Biventricular paced) Vessels: no JVD Extremities: + edema (2+) Gastrointestinal (Abdomen): normal bowel sounds, soft, nontender, no hepatosplenomegaly Results & Data Vital Signs (Past 12 Hours) Vital Signs Temp Pulse Pulse Resp BP Pulse Ox O2 Del Method 09/10/23 08:01 36.5 C 75 18 120/72 95 Room Air 09/10/23 07:15 79 09/10/23 02:43 36.6 C 79 18 125/74 97 Room Air Laboratory Results Laboratory Results - last 24 hr 09/05/23 09/10/23 11:01 07:14 Sodium 140 Potassium 4.0 Chloride 109 H Carbon Dioxide 27 Anion Gap 4 BUN 37 H Creatinine 1.66 H Est Cr Clr Drug Dosing 44.4 Est GFR ( Amer) 43.2 Est GFR (Non-Af Amer) 37.3 BUN/Creatinine Ratio 22.3 H Glucose 99 Calcium 7.9 L Total Protein (PEP) 4.8 L Albumin 2.2 L Albumin (PEP) 2.5 L Kuvyy-4-Dctrtdalx 0.3 Qculr-2-Oturzhnpj 0.8 Bbgn-1-Ixjoarae 0.3 L Oird-5-Yrsjkyzw 0.3 Gamma Globulins 0.6 L Monoclonal Peak 3 DNR Ser Monoclonl Protein 0.3 H Ser Monoclonal Prot 2 DNR PEP Interpretation SEE NOTE
--- NOTE | 2023-09-10 14:19 | Hospitalist Progress Note ---
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 Acute on chronic heart failure with preserved ejection fraction Right heart failure --CXR:No acute chest disease. Cardiomegaly is noted. BNP:326 --ECHO: EF 50 to 55%. Moderate concentric LVH. Apical septum and apical inferior wall is thinned and dyskinetic. Otherwise normal wall motion. Left atrium is severely dilated. Severe mitral regurgitation. Moderate to severe tricuspid regurgitation. Estimated systolic pulmonary pressure 64 mmHg. Dilated inferior vena cava with reduced collapsibility with sniff indicates an elevated right atrial pressure of 15mmHG. Last pacemaker interrogation was May 2023 -Received IV Lasix Monitor I's and O's, daily weight Continue fluid, Na restriction Continue metoprolol, lisinopril Added Aldactone 12.5 mg daily Appreciate cardiology input Diuresed well Renal function stable Started on torsemide 40 mg daily Needs follow-up with nephrology, cardiology upon discharge Acute bronchitis Possible Pneumonia --CXR:Cardiomegaly with mild pulmonary edema and small pleural effusions. Asymmetric right midlung and right basilar airspace opacities. Correlate clinically to exclude superimposed pneumonia. Procalcitonin Empirically started on cefuroxime, doxycycline Saturating well on room air Clinically improved Proteinuria Repeat urinalysis showed proteinuria Protein immunoelectrophoresis pending --Renal USD: No hydronephrosis. The bladder is decompressed by a Soriano catheter. Monitor volume status Appreciate nephrology input Proteinuria work-up pending May need renal biopsy as outpatient Permanent atrial fibrillation Continue metoprolol as above On Eliquis for anticoagulation CAD Chronic, stable Continue Plavix, metoprolol and rosuvastatin Chronic anemia Chronic thrombocytopenia Drop in hemoglobin likely dilutional secondary to volume overload No acute bleeding issues Normal Folate, B12 levels Monitor CBC CKD stage III Baseline Cr 1.5 Monitor renal function while on IV diuresis Avoid nephrotoxic agents as able Cr 1.6 today Nocturnal hypoxemia Continue Oxygen at HS 2L H/O CVA continue Plavix, statin DVT Px: Eliquis Code Status DNR/DNI Disposition Case management to help with discharge planning Admission and Anticipated Discharge Date Admission Date: September 04, 2023 Subjective Patient is seen and examined at bedside No new complaints Cough resolved Leg edema much improved Eager to get discharged Denies any dyspnea, chest pain, dizziness, nausea, abdominal pain Discussed with Nephrology today Review of Systems Review of Systems: All systems reviewed & are unremarkable except as noted in Subjective Physical Exam Physical Exam: Physical Exam: Vitals signs as noted above General Appearance:Moderately built and nourished, no apparent distress, Elderly Head: normocephalic, Atraumatic Eyes: normal inspection, EOMI Neck: supple, Trachea midline Respiratory/Chest: Decreased breath sounds, CTA, No accessory muscle use Cardiovascular: S1, S2,+ murmur Abdomen/GI:Soft, Non tender, Bowel sounds present Extremities/Musculoskeletal:normal inspection, 2+ B/L LE edema Neurologic/Psych:AAOX3, grossly no focal neurological deficits Skin: normal color, warm Results & Data Results & Data Vital Signs (Past 12 Hours) Vital Signs Temp Pulse Pulse Resp BP Pulse Ox O2 Del Method 09/10/23 11:26 36.3 C L 76 20 119/75 97 Room Air 09/10/23 08:01 36.5 C 75 18 120/72 95 Room Air 09/10/23 07:15 79 09/10/23 02:43 36.6 C 79 18 125/74 97 Room Air Laboratory Results [facility] 09/10/23 07:14 Sodium 140 Potassium 4.0 Chloride 109 H Carbon Dioxide 27 BUN 37 H Creatinine 1.66 H Glucose 99 Calcium 7.9 L Liver Function 09/10/23 Range/Units 07:14 Albumin 2.2 L (3.4-5.0) gm/dl
--- NOTE | 2023-09-10 14:42 | Discharge Summary ---
Date of Service September 10, 2023 Admission HPI Per Admitting Provider Chief Complaint: Increased swelling and weight gain; referred by cardiology Dr. Cat Primary Care Provider: Cory Magana [place] [facility]od[facility] This is an 83-year-old male with significant past medical history of CAD, history of dilated ischemic cardiomyopathy with now improved and preserved EF, biventricular pacemaker/defibrillator implantation, mitral insufficiency, permanent atrial fibrillation anticoagulated on Eliquis, history of CVA and nocturnal hypoxia who presents to ED secondary to worsening lower extremity swelling and weight gain. Son at bedside who also helps elicit history. He was last seen by cardiology in clinic on 08/15/2023 and at that time was noted to have a 7 to 8 pound weight gain. At that point it was felt he was having a acute on chronic decompensation of CHF and his Lasix was increased. He then presented to ED on 09/02 for similar symptoms but was discharged back to personal care facility. It is noted in patient's outpatient records that weight has increased from 237-252. He complains of increased weight gain, lower ext swelling up to his thighs and clothes are much tighter. He denies any SOB, orthopnea, pnd, chest pain, dizziness, lightheaded, hemoptysis, f/c/s, abd pain, dysuria, increased urg/freq with urination, or change in bowel habits. He lives in [facility] and ambulates with cane at baseline. In ED pt received 40mg IV lasix. Admission Exam Per Admitting Provider Constitutional: WD/WN,elderly, M, vitals as above, NAD, sitting up in bed, pleasant, conversing easily Head: Normocephalic, Atraumatic Eyes: PERRL, conjunctivae normal, anicteric sclerae ENMT: external ear and nose normal, oropharynx normal Neck: trachea midline, no thyromegaly normal visual inspection Respiratory: normal respiratory effort, lungs clear to auscultation, no wheeze, rales, rhonchi. Normal insp/exp effort, no accessory muscle use Cardiovascular: IRR/IRR, 1/6 JOJO noted, b/l pitting edema +3 extending to prox thigh Vessels: no JVD or carotid bruit Chest: normal inspection of chest Abdomen: normal bowel sounds, soft, nontender, no hepatosplenomegaly Musculoskeletal: no cyanosis or clubbing, AROM x 4 Skin: no rashes, warm and dry normal turgor Neurologic: PERRL, EOMI, accommodation nl, no face palsy, no dysarthria CN's II-XI intact bilaterally and moves all extremities Psychiatric: A+Ox3, euthymic affect : deferred Principal Diagnosis Acute on chronic heart failure with preserved ejection fraction Right heart failure Acute bronchitis CKD with proteinuria Discharge Data Allergies Allergy/AdvReac Type Severity Reaction Status Date / Time No Known Allergies Allergy Unverified 08/09/22 22:43 Consultations 09/04/23 16:52 Consult Cardiology Routine ED Decision to Admit Stat 09/08/23 07:31 Consult Nephrology Routine Procedures Performed Laboratory Results WBC 5.04 K/ul (4.8-10.8) 09/09/23 08:17 RBC 3.17 M/uL (4.70-6.10) L 09/09/23 08:17 Hgb 11.2 g/dl (14.0-18.0) L 09/09/23 08:17 Hct 33.6 % (42.0-52.0) L 09/09/23 08:17 MCV 106.0 fL (80.0-100.0) H 09/09/23 08:17 MCH 35.3 pg (25.0-34.0) H 09/09/23 08:17 MCHC 33.3 g/dL (32.0-36.0) 09/09/23 08:17 RDW Std Deviation 50.9 fL (36.4-46.3) H 09/09/23 08:17 RDW Coeff of [place] 13.0 % (11.5-14.5) 09/09/23 08:17 Plt Count 86 K/uL (130-400) L 09/09/23 08:17 MPV 11.1 fL (9.4-12.4) 09/09/23 08:17 Immature Gran % (Auto) 0.5 % 09/04/23 13:50 Neut % (Auto) 61.4 % 09/04/23 13:50 Lymph % (Auto) 16.8 % 09/04/23 13:50 [place] % (Auto) 13.0 % 09/04/23 13:50 Eos % (Auto) 7.1 % 09/04/23 13:50 Baso % (Auto) 1.2 % 09/04/23 13:50 Neut # (Auto) 3.54 K/uL (1.40-6.50) 09/04/23 13:50 Lymph # (Auto) 0.97 K/uL (1.20-3.40) L 09/04/23 13:50 [place] # (Auto) 0.75 K/uL (0.11-0.59) H 09/04/23 13:50 Eos # (Auto) 0.41 K/uL (0.00-0.50) 09/04/23 13:50 Baso # (Auto) 0.07 K/uL (0.00-0.20) 09/04/23 13:50 Immature Gran # (Auto) 0.03 K/uL (0.01-0.20) 09/04/23 13:50 Sodium 140 mmol/L (136-145) 09/10/23 07:14 Potassium 4.0 mmol/L (3.5-5.1) 09/10/23 07:14 Chloride 109 mmol/L (98-107) H 09/10/23 07:14 Carbon Dioxide 27 mmol/L (21-32) 09/10/23 07:14 Anion Gap 4 (3-11) 09/10/23 07:14 BUN 37 mg/dl (6-23) H 09/10/23 07:14 Creatinine 1.66 mg/dl (0.6-1.4) H 09/10/23 07:14 Est Cr Clr Drug Dosing 44.4 ml/min 09/10/23 07:14 Est GFR ( Amer) 43.2 ml/min 09/10/23 07:14 Est GFR (Non-Af Amer) 37.3 ml/min 09/10/23 07:14 BUN/Creatinine Ratio 22.3 (10-20) H 09/10/23 07:14 Glucose 99 mg/dl (70-99(Fasting)) 09/10/23 07:14 Calcium 7.9 mg/dl (8.6-10.3) L 09/10/23 07:14 Magnesium 2.1 mg/dl (1.7-2.4) 09/08/23 06:54 Troponin I High Sens 42.6 pg/ml (0-20) H 09/04/23 18:35 B-Natriuretic Peptide 326 pg/ml (0-100) H 09/04/23 13:50 Total Protein (PEP) 4.8 g/dL (6.1-8.1) L 09/05/23 11:01 Albumin 2.2 gm/dl (3.4-5.0) L 09/10/23 07:14 Albumin (PEP) 2.5 g/dL (3.8-4.8) L 09/05/23 11:01 Fgpiv-5-Dyuapdnjg 0.3 g/dL (0.2-0.3) 09/05/23 11:01 Sdmkw-6-Saiyqaibe 0.8 g/dL (0.5-0.9) 09/05/23 11:01 Ywoe-3-Qmewihto 0.3 g/dL (0.4-0.6) L 09/05/23 11:01 Rfak-4-Cyjrhaom 0.3 g/dL (0.2-0.5) 09/05/23 11:01 Gamma Globulins 0.6 g/dL (0.8-1.7) L 09/05/23 11:01 Monoclonal Peak 3 DNR g/dL (NONE DETECTED) 09/05/23 11:01 Ser Monoclonl Protein 0.3 g/dL (NONE DETECTED) H 09/05/23 11:01 Ser Monoclonal Prot 2 DNR g/dL (NONE DETECTED) 09/05/23 11:01 PEP Interpretation SEE NOTE 09/05/23 11:01 Lipase 25 U/L (11-82) 09/04/23 13:50 Vitamin B12 186 pg/ml (180-914) 09/05/23 11:01 Folate 10.00 ng/ml (>5.38) 09/05/23 11:01 Procalcitonin 0.19 ng/ml (0-0.5) 09/09/23 08:17 TSH 0.437 uIu/ml (0.300-4.500) 09/05/23 06:51 Urine Color [place] 09/05/23 15:05 Urine Appearance Cloudy (Clear) A 09/05/23 15:05 Urine pH 6.5 (4.5-7.5) 09/05/23 15:05 Ur Specific [place] 1.022 (1.000-1.030) 09/05/23 15:05 Urine Protein 4+ (Negative) H 09/05/23 15:05 Urine Glucose (UA) Negative (Negative) 09/05/23 15:05 Urine Ketones Negative (Negative) 09/05/23 15:05 Urine Blood 3+ (Negative) H 09/05/23 15:05 Urine Nitrite Negative (Negative) 09/05/23 15:05 Urine Bilirubin Negative (Negative) 09/05/23 15:05 Urine Urobilinogen Negative (Negative) 09/05/23 15:05 Ur Leukocyte Esterase 2+ (Negative) H 09/05/23 15:05 Urine WBC (Auto) >30 /hpf (0-5) H 09/05/23 15:05 Urine RBC (Auto) >30 /hpf (0-4) H 09/05/23 15:05 U Hyaline Cast (Auto) 10-30 /lpf (0-5) H 09/05/23 15:05 U Epithel Cells (Auto) 5-10 /lpf (0-5) H 09/05/23 15:05 Urine Bacteria (Auto) Negative (Negative) 09/05/23 15:05 Ur Random Creatinine 68.4 mg/dl 09/08/23 12:00 U Random Total Protein > 1000.0 mg/dl (0-11.9) H 09/08/23 12:00 Protein/Creatinin Ratio TNP 09/08/23 12:00 Nasal Screen MRSA (PCR) Negative (Negative) 09/04/23 Unknown Serum Immunofixation SEE NOTE 09/05/23 11:01 SARS-CoV-2, RNA, NAAT NEGATIVE (NEGATIVE) 09/04/23 17:10 Impressions Chest X-Ray 09/08/23 09:33 XR chest 1V portable HISTORY: 83 years-old Male cough acute cough COMPARISON: 09/04/2023 TECHNIQUE: AP view of the chest FINDINGS: Cardiac silhouette is enlarged. Left subclavian pacer/AICD. Patchy right mid lung and right basilar airspace opacities. Small pleural effusions. Pulmonary vascular congestion with interstitial coarsening. No pneumothorax. Bones appear grossly intact. IMPRESSION: 1. Cardiomegaly with mild pulmonary edema and small pleural effusions. 2. Asymmetric right midlung and right basilar airspace opacities. Correlate clinically to exclude superimposed pneumonia. ACT 112: Negative or not required by law. The above report was generated using voice recognition software. It may contain grammatical, syntax or spelling errors. Electronically signed by: Tin Smith M.D. 09/08/2023 10:48 AM Renal Ultrasound 09/08/23 11:49 RENAL ULTRASOUND HISTORY: proteinuria COMPARISON: Abdomen and pelvis CT 08/09/2022. FINDINGS: Right kidney: 12.9 cm. A 1.9 cm upper pole cyst. This is similar to the prior CT examination. No hydronephrosis. Normal corticomedullary differentiation and cortical thickness. Left kidney: 10.9 cm. No hydronephrosis. Normal corticomedullary differentiation and cortical thickness. Bladder: The bladder is decompressed by a Soriano catheter. IMPRESSION: 1. No hydronephrosis. 2. The bladder is decompressed by a Soriano catheter. ACT 112: Negative or not required by law. Electronically signed by: Boy Gomez M.D. 09/08/2023 2:44 PM Ordered Studies 09/08/23 11:49 US Renal Bladder [US renal/blad retro comp] Routine Hospital Course (1) Acute on chronic heart failure with preserved ejection fraction (HFpEF): (2) Right heart failure: (3) CAD (coronary artery disease): (4) Permanent atrial fibrillation: (5) [facility] current use of 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: (6) CKD (chronic kidney disease) stage 3, GFR 30-59 ml/min: Plan Patient is an 83 yr male with H/O CAD, history of dilated ischemic cardiomyopathy with now improved and preserved EF, biventricular pacemaker/defibrillator implantation, mitral insufficiency, permanent atrial fibrillation anticoagulated on Eliquis, history of CVA and nocturnal hypoxia who presents to ED secondary to worsening lower extremity swelling and shortness of breath.Patient with almost 20 pound weight gain and significant lower extremity edema extending into proximal thigh. Acute on chronic heart failure with preserved ejection fraction Right heart failure --CXR:No acute chest disease. Cardiomegaly is noted. BNP:326 --ECHO: EF 50 to 55%. Moderate concentric LVH. Apical septum and apical inferior wall is thinned and dyskinetic. Otherwise normal wall motion. Left atrium is severely dilated. Severe mitral regurgitation. Moderate to severe tricuspid regurgitation. Estimated systolic pulmonary pressure 64 mmHg. Dilated inferior vena cava with reduced collapsibility with sniff indicates an elevated right atrial pressure of 15mmHG. Last pacemaker interrogation was May 2023 -Received IV Lasix Monitor I's and O's, daily weight Continue fluid, Na restriction Continue metoprolol, lisinopril Added Aldactone 12.5 mg daily Appreciate cardiology input Diuresed well Renal function stable Started on torsemide 40 mg daily Needs follow-up with nephrology, cardiology upon discharge Acute bronchitis Possible Pneumonia --CXR:Cardiomegaly with mild pulmonary edema and small pleural effusions. Asymmetric right midlung and right basilar airspace opacities. Correlate clinically to exclude superimposed pneumonia. Procalcitonin Empirically started on cefuroxime, doxycycline Saturating well on room air Clinically improved Proteinuria Repeat urinalysis showed proteinuria Protein immunoelectrophoresis pending --Renal USD: No hydronephrosis. The bladder is decompressed by a Soriano catheter. Monitor volume status Appreciate nephrology input Proteinuria work-up pending May need renal biopsy as outpatient Permanent atrial fibrillation Continue metoprolol as above On Eliquis for anticoagulation CAD Chronic, stable Continue Plavix, metoprolol and rosuvastatin Chronic anemia Chronic thrombocytopenia Drop in hemoglobin likely dilutional secondary to volume overload No acute bleeding issues Normal Folate, B12 levels Monitor CBC CKD stage III Baseline Cr 1.5 Monitor renal function while on IV diuresis Avoid nephrotoxic agents as able Cr 1.6 today Nocturnal hypoxemia Continue Oxygen at HS 2L H/O CVA continue Plavix, statin DVT Px: Eliquis Code Status DNR/DNI Disposition Case management to help with discharge planning Total Time Total Time Spent Total Time Spent (In Minutes): 58 minutes Discharge Plan Discharge Items Patient Disposition: Home - Self-Care Reason For Visit: CHF Discharge Diagnosis: Acute on chronic heart failure with preserved ejection fraction Right heart failure Acute bronchitis CKD with proteinuria Activity: Per Instructions section Exercise/Sports: Gradually increase as tolerated Non-emergency contact: Primary Care Provider, Ecmo Specialist and Territory Representative Call non-emergency contact if: you have any medication questions, your symptoms worsen, your pain is concerning for you and you have a fever Follow-up/Referrals: Cory Jensen [Primary Care Provider] - Cameron Martinez MD [Physician] - (The Nephrology office will contact you for a hospital follow up appointment.) Melanie Torres CRNP [Nurse Practitioner] - (Date & Time 09/26/2023 3:30 PM Provider EMEKA Domingo Department Cardiology, [facility] ) Diet: Heart Healthy and Low Sodium (2gm) Fluids: 2000ml (8 cups) Addtl Attending Provider Instructions: Follow-up with your primary care physician in 1 week Follow-up with your card checker Dr. Cat as advised Follow-up with your road grader operator in 2 weeks with repeat blood test (basic metabolic panel) --- Complete antibiotic course cefuroxime, doxycycline as prescribed Seek immediate medical attention if your symptoms reoccur or worsen Please take all medications as instructed on discharge list below. Please call if you have any questions or problems. You can reach a [facility] hospitalist on duty at [facility] 24 hours a day by calling [phone] Call your Primary Care doctor if any of the following symptoms or problems start or get worse: * Shortness of breath or difficulty breathing * Wake up at night short of breath * Chest pain * Cough * Swelling of your hands, feet, or legs * More fatigued or tired with your normal activity * Palpitations - sudden fast heart beats WEIGHT * Weigh yourself every morning after using the bathroom. * Use the same scale. * Wear the same amount of clothing. * Write your weight down on a chart. * Call your Primary Care doctor if you gain more than 2-3 pounds in 1-2 days. MEDICATIONS * Use this discharge instruction sheet for medication instructions. * Take your medications at the time your doctor ordered. * Do not skip a dose of your medicines. * If you miss a dose of medicine, take it as soon as possible, but DO NOT DOUBLE A DOSE. * Read your medicine information when you get home. * Know all of the side effects of your medicine. If in doubt, ask your pharmacist * Call your Primary Care doctor's office if you have any side effects. * Be sure all of your doctors know what medicine and herbs you take (including cold, flu, and herbal medicine). Take the following with you to your follow-up doctor appointments: * Weight Chart * Medication List * List of questions Do not drink excessive alcohol, beer or wine. Pending Studies at Discharge: No Stand-Alone Forms: My [facility], Smoking Cessation Medications and DC Order Prescriptions: New doxycycline hyclate 100 mg Capsule 100 mg PO BID Qty: 8 0RF torsemide 20 mg Tablet 40 mg PO QAM Qty: 30 1RF spironolactone 25 mg Tablet 12.5 mg PO DAILY Qty: 30 1RF potassium chloride 20 mEq Tablet,Er Particles/Crystals 20 meq PO BID Qty: 60 0RF cefuroxime axetil 500 mg Tablet 500 mg PO BID Qty: 8 0RF Continued clopidogrel 75 mg tablet 75 mg PO DAILY fluoxetine 10 mg capsule 10 mg PO DAILY lisinopril 5 mg tablet 5 mg PO DAILY fluticasone propionate 50 mcg/actuation spray,suspension 1 spray INTRANASAL BID Eliquis 5 mg tablet 5 mg PO BID nitroglycerin 0.4 mg tablet, sublingual 0.4 mg sublingual UD PRN (Reason: Chest Pain) Rx Instructions: 1 tab under tongue every 5 min for 3 doses as needed for chest pain,if no relief call ketoconazole 2 % cream 1 applic TOPICAL BID PRN (Reason: flares) Rx Instructions: apply to behind ears as needed for seborrheic dernatitis flares acetaminophen 325 mg Tablet 650 mg PO Q4 MDD 3g PRN (Reason: Fever Or Pain) ketoconazole 2 % shampoo 1 applic TOPICAL [id number] Rx Instructions: apply to scalp and behind ears...leave on for 3-5 minutes before rinsing metoprolol succinate 25 mg tablet extended release 24 hr 25 mg PO BID rosuvastatin 10 mg tablet 10 mg PO HS cholecalciferol (vitamin D3) [Vitamin D3] 50 mcg (2,000 unit) Tablet 50 mcg PO DAILY Discontinued furosemide 20 mg tablet 60 mg PO Q2D furosemide 20 mg tablet 80 mg PO Q2D Discharge Orders: Discharge Order (Routine); Ordered 09/10/23 Ordered By: Remigio Rivers Admission Data Admit Date/Time: 09/04/23 17:02 Attending Provider: Remigio Rivers Admit Provider: Pamella Catalan Primary Care Provider: Cory Jensen Other Providers: Robin Jean ; Pamella Catalan ; Gisele Daugherty ; Jethro Smith ; Lizzy Bhatia ; Cameron Martinez ; Benitez,Jawed ; Padma Broussard D.
[2023-09-10] MEDS ORDERED: DOXYCYCLINE HYCLATE 100 MG CAP PO STA (14:55)
[2023-09-10] MEDS ORDERED: cefUROXime axetil 500 MG TAB PO ONE (15:00)
[2023-09-10 15:48] LABS: Urine Total Protein 666.2 mg/dl
[2023-09-10 16:01] LABS: Creatinine 24 Hour Urine 1.2 gm/24 HR (0.6-2.5); Total Protein 24 Hour Urine 12124.8 mg/24 Hr (0-149.1)
[2023-09-15 11:52] LABS: Abnormal Protein Band 1 563 mg/24 h (NONE DETECTED); Abnormal Protein Band 2 DNR mg/24 h (NONE DETECTED); Abnormal Protein Band 3 DNR mg/24 h (NONE DETECTED); Creatinine, 24 hr Urine 1.24 g/24 h (0.50-2.15); Protein, Urine 24 Hour 13632 mg/24 h (<150); Ur Protein/Creatinine Rat mg/g 11015 mg/g creat (<100); Urine Protein/Creatinine Ratio 11.015 (<0.100)
[2023-09-15 22:33] LABS: % Cryocrit DNR; Cryoglobulin, QL Negative (Negative)
== END 2023-09-10 16:39 | disposition home or self-care (01) | DRG 291 ==
LOC: ED 15:27 → 2S 17:02 → SUATTDRO 17:02 → 2S 20:57

== ENCOUNTER 2023-10-06 10:25 | Inpatient (IN) ==
--- NOTE | 2023-10-06 11:35 | XRay Report ---
SINGLE VIEW CHEST CLINICAL HISTORY: Sepsis. FINDINGS: An AP upright chest radiograph is compared to study dated 09/22/2023. The examination is de graded by portable technique and patient rotation. A multilead cardiac AICD is unchanged in position . The heart is enlarged noting atherosclerotic calcification of the thoracic aorta. The pulmonary vas culature is noncongested. Chronic interstitial thickening similar to previous. There is a small right pleural effusion with bibasilar scarring/atelectasis. No airspace consolidation is seen typical for pneumonia. No pneumothorax is seen. The skeletal structures are osteopenic. There are chronic/healed right-sided rib fractures. IMPRESSION: 1. Cardiomegaly and AICD without radiographic evidence of congestive failure. 2. Small right pleural effusion. ACT 112: Negative or not required by law. Electronically signed by: Rigo Crawford M.D. 10/06/2023 11:33 AM
[2023-10-06 12:09] LABS: Basophils # (auto) 0.06 K/uL (0.00-0.20); Basophils % (auto) 1.1 %; Eosinophils % (auto) 3.5 %; Hematocrit (blood only) 27.6 % (42.0-52.0); Immature Granulocytes # (auto) 0.01 K/uL (0.01-0.20); Immature Granulocytes % (auto) 0.2 %; Lymphocytes # (auto) 0.88 K/uL (1.20-3.40); Lymphocytes % (auto) 15.6 %; Mean Corpuscular Hemoglobin 35.3 pg (25.0-34.0); Mean Corpuscular Hgb Conc 32.6 g/dL (32.0-36.0); Mean Corpuscular Volume 108.2 fL (80.0-100.0); Mean Platelet Volume 10.9 fL (9.4-12.4); Monocytes # (auto) 0.77 K/uL (0.11-0.59); Monocytes % (auto) 13.7 %; Neutrophils # (auto) 3.72 K/uL (1.40-6.50); Neutrophils % (auto) 65.9 %; Platelet Count 71 K/uL (130-400); RDW Coefficient of Variation 13.2 % (11.5-14.5); RDW Standard Deviation 52.4 fL (36.4-46.3); Red Blood Count 2.55 M/uL (4.70-6.10); White Blood Count 5.64 K/ul (4.8-10.8)
--- NOTE | 2023-10-06 12:10 | Emergency Department Note ---
Impression & Plan Elevated troponin ADMIT ED Provider Note HPI: History obtained from patient's son at the bedside The patient is a 83-year-old gentleman with history of vascular dementia, chronic kidney disease, coronary artery disease, CHF, atrial fibrillation on Eliquis, presents emergency department with his son at the bedside over concern for altered mentation that seems to be worsening over the past 1 to 2 weeks. This is in the setting of multiple hospitalizations over the past month for fluid overload and nephrotic syndrome. Patient's son states that the patient was just discharged last week from [facility] in [place] where he had a biopsy of his kidney. He is unsure of what the results showed. Patient is currently at [facility] where he was noticed to be altered over the past several days including an episode where he defecated on the floor and was found naked in his room in a disoriented state. Patient's son states he has had some ambulatory issues during this time as well and suspects that he might of fallen once or twice over about the past week. On arrival here to the ED the patient is alert to verbal stimuli, he does not display any focal deficits, he is saturating well on room air on arrival. ROS: - Per HPI Differential Diagnosis: Progressive vascular dementia, intracranial hemorrhage to include subdural hematoma, epidural hematoma, urinary tract infection, pneumonia, dehydration/acute kidney injury, amongst other potential pathologies. *Outpatient medications and allergy history reviewed. *Pertinent external medical records reviewed PE: General: Alert HEENT: Normocephalic, trachea midline Eyes: Extraocular eye movement is intact, no scleral erythema Pulmonary: Clear to auscultation bilaterally, no wheezing Cardio: Regular rate and rhythm GI: Abdomen is soft to palpation : No suprapubic tenderness MSK: No evidence of trauma or malformation of the extremities, no edema Skin: No evidence of rash Neuro: Alert, no focal deficits Psychiatric: Cooperative INDEPENDENT INTERPRETATIONS: quality assurance monitor body: (As interpreted by myself): - An order was placed for continuous cardiac monitoring - Patient was noted to be in paced rhythm with a rate of 78 EKG: (As interpreted by myself): Rate: 75 Rhythm: Ventricular paced rhythm Intervals: QRS 162 ms, QTc [address] changes: No ST elevation Time: 1144 Interventions provided in ED: -IV fluid bolus Medical Decision Making: Shortly after the patient arrived IV was established and lab work ordered, patient was placed on cardiac monitor technician. Lab work shows no leukocytosis, hemoglobin is stable at 9.0 which appears to be near the patient's baseline, platelet count is low at 71 which is also near the patient's baseline. CMP shows creatinine elevation to 2.22, baseline appears to be around 1.6, BUN is elevated at 49. Patient does not appear to be overtly fluid overloaded on my exam therefore was given a small bolus of IV fluids given his elevated creatinine. Lactic acid is normal at 1.3. High-sensitivity troponin was obtained and is elevated at approximately 1700, patient denies any chest pain or shortness of breath and is saturating well on room air. Procalcitonin was obtained and is low at 0.07. Viral panel testing was obtained and is completely negative. CT imaging of the head was obtained and does not show any evidence of any acute intracranial hemorrhage. I discussed the above findings with on-call cardiology, Dr. Cat, who is familiar with the patient. Given that the patient is currently on Eliquis (bedside RN did confirm with the nursing facility that the patient did receive his Eliquis this morning) will avoid initiation of heparin drip at this time for the patient's elevated troponin. Unclear source for this as the patient denies any chest pain, low suspicion for ACS. EKG shows a paced rhythm without any obvious ischemic changes. I discussed all the above findings with the patient's son at the bedside, he confirms that the patient is DNR/DNI CODE STATUS should he decline acutely. He will be admitted to the hospitalist service following my discussion with the midlevel provider for the [facility] hospitalist service, patient was placed for admission in stable condition to the service of Dr. Pineda. Consultants/Discussions held with other healthcare providers: -[facility] hospitalist service, Dr. Pineda Disposition discussion held by myself with: -Patient and son at bedside Diagnosis: 1. Altered mental status, acute 2. Elevated high-sensitivity troponin level, acute 3. Acute on chronic kidney injury 4. Elevated BUN, acute 5. Anemia, chronic 6. 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 Permanent atrial fibrillation HLD (hyperlipidemia) HTN (hypertension) CAD (coronary artery disease) History of ischemic cardiomyopathy Hematuria Generalized weakness COVID-19 Surgical History AICD (automatic cardioverter/defibrillator) present Status post biventricular pacemaker and defib Family History Other Family history non-contributory Social History Smoking Status: Never smoker Second Hand Exposure: No; Do You Dip or Chew Tobacco: No; Hx Alcohol Use: No Hx Substance Use: No Preferred Language: Azeri Communication Ability: Effective Financial Aid Required: No Beliefs That Will Affect Care: None Current Living Situation: Personal Care Facility [facility] Other Information That Helps Us Care for You: No Feels Safe at Home: Yes Safety Concerns: Feels Safe At This Time Assistive Devices: Cane and Walker Allergies Allergies Allergy/AdvReac Type Severity Reaction Status Date / Time No Known Allergies Allergy Unverified 10/06/23 15:42 Home Meds Home Medications Medication Instructions Recorded Confirmed apixaban 5 mg tablet (Eliquis) 5 mg PO BID 08/09/22 10/06/23 cholecalciferol (vitamin D3) 50 50 mcg PO DAILY 08/09/22 10/06/23 mcg (2,000 unit) tablet (Vitamin D3) clopidogrel 75 mg tablet 75 mg PO DAILY 08/09/22 10/06/23 fluoxetine 10 mg capsule 10 mg PO DAILY 08/09/22 10/06/23 fluticasone propionate 50 1 spray intranasal BID 08/09/22 10/06/23 mcg/actuation nasal spray,suspension ketoconazole 2 % topical cream 1 applic topical BID PRN flares 08/09/22 10/06/23 lisinopril 5 mg tablet 5 mg PO DAILY 08/09/22 10/06/23 metoprolol succinate 25 mg 25 mg PO BID 08/09/22 10/06/23 tablet,extended release 24 hr nitroglycerin 0.4 mg sublingual 0.4 mg sublingual UD PRN Chest Pain 08/09/22 10/06/23 tablet rosuvastatin 10 mg tablet 10 mg PO HS 08/09/22 10/06/23 acetaminophen 500 mg tablet 1,000 mg PO BID 09/23/23 10/06/23 (Tylenol Extra Strength) docusate sodium 100 mg capsule 100 mg PO DAILY 09/23/23 10/06/23 (Colace) ferrous sulfate 325 mg (65 mg 325 mg PO BID 09/23/23 10/06/23 iron) tablet (iron) loratadine 10 mg tablet 10 mg PO DAILY 09/23/23 10/06/23 acetaminophen 325 mg tablet 650 mg PO Q4 PRN Fever Or Pain 10/06/23 10/06/23 dextromethorphan-guaifenesin 10 10 ml PO Q8 PRN Cough 10/06/23 10/06/23 mg-100 mg/5 mL oral liquid furosemide 20 mg tablet 20 mg PO DAILY PRN wt gain>3lbs in 10/06/23 10/06/23 2 days or edema +2 guaifenesin 400 mg tablet 400 mg PO Q6 PRN congestion/cough 10/06/23 10/06/23 ketoconazole 2 % shampoo 1 ea topical 3XWK 10/06/23 10/06/23 melatonin 3 mg tablet 3 mg PO HS PRN Insomnia 10/06/23 10/06/23 naproxen sodium 220 mg tablet 220 mg PO Q4 PRN Headache 10/06/23 10/06/23 sulfamethoxazole 800 1 tab PO MOWEFR 10/06/23 10/06/23 mg-trimethoprim 160 mg tablet Previous Rx's Medication Instructions Recorded potassium chloride 20 mEq 20 meq PO BID #60 tabs 09/10/23 tablet,extended release(part/cryst) spironolactone 25 mg tablet 12.5 mg (1/2 x 25 mg) PO DAILY #30 09/10/23 tabs torsemide 20 mg tablet 40 mg (2 x 20 mg) PO QAM #30 tabs 09/10/23 Results & Data (ED) Vital Signs Vital Signs - 24 hr 10/06/23 10:32 10/06/23 12:00 10/06/23 12:00 Temperature 36.6 C Temperature Source Temporal Artery Scan Pulse Rate 73 Pulse Rate [Right Finger] 78 Respiratory Rate 20 14 Respiratory Effort / Characteristics Non-Labored Non-Labored Respiratory Depth Normal Normal Blood Pressure 124/81 Blood Pressure [Right Arm] 114/83 Blood Pressure Mean 95 Blood Pressure Mean [Right Arm] 93 Pulse Oximetry 98 99 100 Oxygen Delivery Method Room Air Room Air Room Air Sepsis Recent Fever Within 48 Hours No Sepsis New/Unexplained Change in Mental Status Yes Sepsis Action Taken by Nursing No Action Required 10/06/23 12:24 10/06/23 13:46 Temperature Temperature Source Pulse Rate 76 Pulse Rate [Right Finger] 77 Respiratory Rate 16 Respiratory Effort / Characteristics Respiratory Depth Blood Pressure Blood Pressure [Right Arm] 129/91 Blood Pressure Mean Blood Pressure Mean [Right Arm] 103 Pulse Oximetry 100 Oxygen Delivery Method Room Air Sepsis Recent Fever Within 48 Hours Sepsis New/Unexplained Change in Mental Status Sepsis Action Taken by Nursing Laboratory Data 10/06/23 11:27 10/06/23 11:27 Lab Results 10/06/23 10/06/23 10/06/23 Range/Units 11:27 11:39 12:26 WBC 5.64 (4.8-10.8) K/ul RBC 2.55 L (4.70-6.10) M/uL Hgb 9.0 L (14.0-18.0) g/dl Hct 27.6 L (42.0-52.0) % MCV 108.2 H (80.0-100.0) fL MCH 35.3 H (25.0-34.0) pg MCHC 32.6 (32.0-36.0) g/dL RDW Std Deviation 52.4 H (36.4-46.3) fL RDW Coeff of Tucker 13.2 (11.5-14.5) % Plt Count 71 L (130-400) K/uL MPV 10.9 (9.4-12.4) fL Immature Gran % (Auto) 0.2 % Neut % (Auto) 65.9 % Lymph % (Auto) 15.6 % [place] % (Auto) 13.7 % Eos % (Auto) 3.5 % Baso % (Auto) 1.1 % Neut # (Auto) 3.72 (1.40-6.50) K/uL Lymph # (Auto) 0.88 L (1.20-3.40) K/uL [place] # (Auto) 0.77 H (0.11-0.59) K/uL Eos # (Auto) 0.20 (0.00-0.50) K/uL Baso # (Auto) 0.06 (0.00-0.20) K/uL Immature Gran # (Auto) 0.01 (0.01-0.20) K/uL PT 12.5 H (9.0-12.0) Seconds INR 1.2 H (0.9-1.1) APTT 31.0 (21.0-31.0) Seconds PTT Ratio 1.1 Sodium 141 (136-145) mmol/L Potassium 4.5 (3.5-5.1) mmol/L Chloride 114 H (98-107) mmol/L Carbon Dioxide 21 (21-32) mmol/L Anion Gap 6 (3-11) BUN 49 H (6-23) mg/dl Creatinine 2.22 H (0.6-1.4) mg/dl Est Cr Clr Drug Dosing Not Reportable Est GFR ( Amer) 30.4 ml/min Est GFR (Non-Af Amer) 26.2 ml/min BUN/Creatinine Ratio 22.1 H (10-20) Glucose 89 (70-99(Fasting)) mg/dl Lactate 1.3 (0.4-2.0) mmol/L Calcium 8.4 L (8.6-10.3) mg/dl Magnesium 2.5 H (1.7-2.4) mg/dl Total Bilirubin 0.8 (0.2-1.0) mg/dl AST 30 (13-39) U/L ALT 16 (7-52) U/L Alkaline Phosphatase 95 (34-104) U/L Troponin I High Sens 1689.4 H* (0-20) pg/ml Total Protein 5.5 L (6.0-8.3) gm/dl Albumin 3.1 L (3.4-5.0) gm/dl Globulin 2.4 L (2.5-4.0) gm/dl Albumin/Globulin Ratio 1.3 (0.9-2) Procalcitonin 0.07 (0-0.5) ng/ml Adenovirus (PCR) Not Detected (NotDetected) B. pertussis DNA (PCR) Not Detected (NotDetected) B.parapertussis DNA PCR Not Detected (NotDetected) C. pneumoniae DNA (PCR) Not Detected (NotDetected) Coronavirus OC43 (PCR) Not Detected (NotDetected) Coronavirus HKU1 (PCR) Not Detected (NotDetected) Coronavirus 229E (PCR) Not Detected (NotDetected) SARS-CoV-2 (PCR) Not Detected (NotDetected) Coronavirus NL63 (PCR) Not Detected (NotDetected) Human Metapneumovir PCR Not Detected (NotDetected) Influenza Type A (PCR) Not Detected (NotDetected) Influenza Type B (PCR) Not Detected (NotDetected) M. pneumoniae (PCR) Not Detected (NotDetected) Parainfluenza 1 (PCR) Not Detected (NotDetected) Parainfluenza 2 (PCR) Not Detected (NotDetected) Parainfluenza 3 (PCR) Not Detected (NotDetected) Parainfluenza 4 (PCR) Not Detected (NotDetected) RSV (PCR) Not Detected (NotDetected) Entero/Rhino (PCR) Not Detected (NotDetected) 10/06/23 Range/Units 13:16 WBC (4.8-10.8) K/ul RBC (4.70-6.10) M/uL Hgb (14.0-18.0) g/dl Hct (42.0-52.0) % MCV (80.0-100.0) fL MCH (25.0-34.0) pg MCHC (32.0-36.0) g/dL RDW Std Deviation (36.4-46.3) fL RDW Coeff of Tucker (11.5-14.5) % Plt Count (130-400) K/uL MPV (9.4-12.4) fL Immature Gran % (Auto) % Neut % (Auto) % Lymph % (Auto) % [place] % (Auto) % Eos % (Auto) % Baso % (Auto) % Neut # (Auto) (1.40-6.50) K/uL Lymph # (Auto) (1.20-3.40) K/uL [place] # (Auto) (0.11-0.59) K/uL Eos # (Auto) (0.00-0.50) K/uL Baso # (Auto) (0.00-0.20) K/uL Immature Gran # (Auto) (0.01-0.20) K/uL PT (9.0-12.0) Seconds INR (0.9-1.1) APTT (21.0-31.0) Seconds PTT Ratio Sodium (136-145) mmol/L Potassium (3.5-5.1) mmol/L Chloride (98-107) mmol/L Carbon Dioxide (21-32) mmol/L Anion Gap (3-11) BUN (6-23) mg/dl Creatinine (0.6-1.4) mg/dl Est Cr Clr Drug Dosing Est GFR ( Amer) ml/min Est GFR (Non-Af Amer) ml/min BUN/Creatinine Ratio (10-20) Glucose (70-99(Fasting)) mg/dl Lactate (0.4-2.0) mmol/L Calcium (8.6-10.3) mg/dl Magnesium (1.7-2.4) mg/dl Total Bilirubin (0.2-1.0) mg/dl AST (13-39) U/L ALT (7-52) U/L Alkaline Phosphatase (34-104) U/L Troponin I High Sens 3549.6 H* D (0-20) pg/ml Total Protein (6.0-8.3) gm/dl Albumin (3.4-5.0) gm/dl Globulin (2.5-4.0) gm/dl Albumin/Globulin Ratio (0.9-2) Procalcitonin (0-0.5) ng/ml Adenovirus (PCR) (NotDetected) B. pertussis DNA (PCR) (NotDetected) B.parapertussis DNA PCR (NotDetected) C. pneumoniae DNA (PCR) (NotDetected) Coronavirus OC43 (PCR) (NotDetected) Coronavirus HKU1 (PCR) (NotDetected) Coronavirus 229E (PCR) (NotDetected) SARS-CoV-2 (PCR) (NotDetected) Coronavirus NL63 (PCR) (NotDetected) Human Metapneumovir PCR (NotDetected) Influenza Type A (PCR) (NotDetected) Influenza Type B (PCR) (NotDetected) M. pneumoniae (PCR) (NotDetected) Parainfluenza 1 (PCR) (NotDetected) Parainfluenza 2 (PCR) (NotDetected) Parainfluenza 3 (PCR) (NotDetected) Parainfluenza 4 (PCR) (NotDetected) RSV (PCR) (NotDetected) Entero/Rhino (PCR) (NotDetected) Administered Medications Discontinued Medications Sodium Chloride (Nss) 500 mls @ 999 mls/hr IV .Q31M ONE Stop: 10/06/23 12:59 Last Infusion: 10/06/23 13:55 Dose: Infused Documented By: Admin: 10/06/23 12:56 Dose: 999 mls/hr Documented By: HUEY Imaging Data Radiologist's Impression: Chest X-Ray 10/06/23 10:38 SINGLE VIEW CHEST CLINICAL HISTORY: Sepsis. FINDINGS: An AP upright chest radiograph is compared to study dated 09/22/2023. The examination is degraded by portable technique and patient rotation. A multilead cardiac AICD is unchanged in position. The heart is enlarged noting atherosclerotic calcification of the thoracic aorta. The pulmonary vasculature is noncongested. Chronic interstitial thickening similar to previous. There is a small right pleural effusion with bibasilar scarring/atelectasis. No airspace consolidation is seen typical for pneumonia. No pneumothorax is seen. The skeletal structures are osteopenic. There are chronic/healed right-sided rib fractures. IMPRESSION: 1. Cardiomegaly and AICD without radiographic evidence of congestive failure. 2. Small right pleural effusion. ACT 112: Negative or not required by law. Electronically signed by: Rigo Crawford M.D. 10/06/2023 11:[address] 10/06/23 12:07 CT SCAN OF THE BRAIN WITHOUT IV CONTRAST CLINICAL HISTORY: Change in mental status. Recent falls. COMPARISON STUDY: CT of the brain dated 09/23/2023. TECHNIQUE: Unenhanced axial CT scan of the brain is performed from the vertex to the skull base. A dose lowering technique was utilized adhering to the principles of ALARA. CT DOSE: 703.85 mGy.cm FINDINGS: Brain parenchyma: There is age-related involutional change noting moderate subcortical and periventricular microangiopathic disease. There is no hemorrhage, mass effect, or evidence of acute territorial ischemia by CT criteria. Chronic lacunar infarcts are noted in both cerebellar hemispheres in the left basal ganglia. There is encephalomalacia from a chronic right temporoparietal infarct. Call-white matter differentiation is preserved. No extra-axial fluid collection is seen. Ventricles, sulci, cisterns: Prominent secondary to involutional change. Intracranial vasculature: There is atherosclerotic calcification of the cavernous carotid and vertebral arteries. Calvarium: Unremarkable. Sinuses and mastoids: There is a 2 cm retention cyst in the right maxillary antrum. The remaining paranasal sinuses are clear. The mastoid air cells are well pneumatized. Orbits: The bony orbits are grossly intact. There are bilateral ocular lens implants. IMPRESSION: There is no hemorrhage, mass effect, or evidence of acute territorial ischemia by CT criteria. ACT 112: Negative or not required by law. Electronically signed by: Rigo Crawford M.D. 10/06/2023 2:17 PM Discharge Plan Visit Data Chief Complaint: Dizziness Stated Complaint: DIZZY ED Provider: Rito Alan Discharge Problem: Elevated troponin Patient Disposition: Admitted As Inpatient Discharge Instructions Interventions: ED Discharge Assessment Last Done: 10/06/23 16:37
[2023-10-06 12:14] LABS: Alanine Aminotransferase 16 U/L (7-52); Albumin Globulin Ratio 1.3 (0.9-2); Albumin Level 3.1 gm/dl (3.4-5.0); Alkaline Phosphatase 95 U/L (34-104); Anion Gap 6 (3-11); Aspartate Aminotransferase 30 U/L (13-39); BUN Creatinine Ratio 22.1 (10-20); Bilirubin,Total 0.8 mg/dl (0.2-1.0); Blood Urea Nitrogen 49 mg/dl (6-23); Calcium 8.4 mg/dl (8.6-10.3); Carbon Dioxide 21 mmol/L (21-32); Chloride 114 mmol/L (98-107); Est GFR (African American) 30.4 ml/min; Est GFR (Non-African American) 26.2 ml/min; Globulin 2.4 gm/dl (2.5-4.0); Glucose 89 mg/dl (70-99(Fasting)); Magnesium 2.5 mg/dl (1.7-2.4); Potassium 4.5 mmol/L (3.5-5.1); Sodium 141 mmol/L (136-145); Total Protein 5.5 gm/dl (6.0-8.3)
[2023-10-06] MEDS ORDERED: SODIUM CHLORIDE 0.9% 500 ML IV ONE (12:29)
[2023-10-06 12:35] LABS: INR 1.2 (0.9-1.1); Partial Thromboplastin Ratio 1.1; Prothrombin Time 12.5 Seconds (9.0-12.0)
[2023-10-06 13:34] LABS: Adenovirus PCR Not Detected (NotDetected); Bordetella parapertussis PCR Not Detected (NotDetected); Bordetella pertussis PCR Not Detected (NotDetected); Chlamydia pneumoniae PCR Not Detected (NotDetected); Coronavirus 229E PCR Not Detected (NotDetected); Coronavirus CoV-2 (COVID19)PCR Not Detected (NotDetected); Coronavirus HKU1 PCR Not Detected (NotDetected); Coronavirus NL63 PCR Not Detected (NotDetected); Coronavirus OC43PCR Not Detected (NotDetected); Human Metapneumovirus PCR Not Detected (NotDetected); Influenza A PCR Not Detected (NotDetected); Influenza B PCR Not Detected (NotDetected); Mycoplasma pneumoniae PCR Not Detected (NotDetected); Parainfluenza Virus 1 PCR Not Detected (NotDetected); Parainfluenza Virus 2 PCR Not Detected (NotDetected); Parainfluenza Virus 3 PCR Not Detected (NotDetected); Parainfluenza Virus 4 PCR Not Detected (NotDetected); Respiratory Syncytial VirusPCR Not Detected (NotDetected); Rhinovirus/Enterovirus PCR Not Detected (NotDetected)
--- NOTE | 2023-10-06 14:20 | CT Scan Report ---
CT SCAN OF THE BRAIN WITHOUT IV CONTRAST CLINICAL HISTORY: Change in mental status. Recent falls. COMPARISON STUDY: CT of the brain dated 09/23/2023. TECHNIQUE: Unenhanced axial CT scan of the brain is performed from the vertex to the skull base. A do se lowering technique was utilized adhering to the principles of ALARA. CT DOSE: 703.85 mGy.cm FINDINGS: Brain parenchyma: There is age-related involutional change noting moderate subcortical and periventri cular microangiopathic disease. There is no hemorrhage, mass effect, or evidence of acute territorial ischemia by CT criteria. Chronic lacunar infarcts are noted in both cerebellar hemispheres in the le ft basal ganglia. There is encephalomalacia from a chronic right temporoparietal infarct. Call-white matter differentiation is preserved. No extra-axial fluid collection is seen. Ventricles, sulci, cisterns: Prominent secondary to involutional change. Intracranial vasculature: There is atherosclerotic calcification of the cavernous carotid and vertebr al arteries. Calvarium: Unremarkable. Sinuses and mastoids: There is a 2 cm retention cyst in the right maxillary antrum. The remaining par anasal sinuses are clear. The mastoid air cells are well pneumatized. Orbits: The bony orbits are grossly intact. There are bilateral ocular lens implants. IMPRESSION: There is no hemorrhage, mass effect, or evidence of acute territorial ischemia by CT jenny alexandra. ACT 112: Negative or not required by law. Electronically signed by: Rigo Crawford M.D. 10/06/2023 2:17 PM
--- NOTE | 2023-10-06 15:06 | History & Physical Report ---
Date of Service October 06, 2023 Assessment & Plan (1) Metabolic encephalopathy: (2) Dementia: Plan: Patient is 83 y/o M with PMH CAD, history of dilated ischemic cardiomyopathy with now improved and preserved EF, biventricular pacemaker/defibrillator implantation, mitral insufficiency, permanent atrial fibrillation anticoagulated on Eliquis, history of CVA and nocturnal hypoxia presented to ER from [facility] with c/o increased confusion. Respiratory panel negative CT head: no acute intracranial abnormality UA pending DDX: metabolic encephalopathy, delirium Reorient as needed Monitor CBC, BMP in a.m. (3) Elevated troponin: (4) History of ischemic cardiomyopathy: (5) CAD (coronary artery disease): Plan: H/O CAD History ischemic cardiomyopathy S/P pacer/defibrillator 09/23/2023 Limited echo: Moderate concentric LVH, EF: 50-55%, apical septum and apical inferior wall dyskinetic, severe mitral regurgitation HS Troponin: 1689-->3543 EKG: paced rhythm Patient denies CP, SOB DDX: NSTEMI, ACS Echo Trend troponin Repeat EKG in am Continue Plavix, Eliquis, rosuvastatin, metoprolol Nitro prn CP and repeat EKG for CP Cardiology consult, recommends continuing Eliquis and holding on heparin at this time, and recommends conservative management (6) CKD (chronic kidney disease) stage 3, GFR 30-59 ml/min: (7) Primary membranous nephropathy with nephrotic syndrome: Plan: Recent kidney biopsy consistent with membranous glomerulopathy Cr: 2.2. Was 2.1 on 10/01 and 10/02/2023. Prior baseline~1.5 Currently on Bactrim MWF as prophylaxis. Will continue pending further recommendations by nephrology Nephrology consult (8) Chronic heart failure with preserved ejection fraction: Plan: + Pitting edema BLE with mildly dry mucous membranes. Suspect acute on chronic overload Monitor I's and O's, daily weight Plan to continue torsemide, spironolactone Closely monitor BMP (9) Permanent atrial fibrillation: Plan: Chronically anticoagulated on Eliquis Continue Eliquis, metoprolol (10) DVT (deep venous thrombosis): Plan: Acute DVT both peroneal veins diagnosed at [facility] during recent admission per [facility] notes. Continue Eliquis (11) HTN (hypertension): Plan: BP stable On lisinopril (12) Chronic anemia: Plan: Chronic thrombocytopenia H&H, platelets stable Monitor (13) Stroke: Plan: Continue Plavix, rosuvastatin DVT Prophylaxis On Eliquis. DVT present prior to this hospitalization DNR/DNI as per discussion with pt, pt's son Follows with Dr Payam Claire for routine care Pt was seen and care coordinated with Dr Pineda. See addendum History of Present Illness Chief Complaint: AMS Primary Care Provider: Payam Claire DO Patient is 83 y/o M with PMH CAD, history of dilated ischemic cardiomyopathy with now improved and preserved EF, biventricular pacemaker/defibrillator implantation, mitral insufficiency, permanent atrial fibrillation anticoagulated on Eliquis, history of CVA and nocturnal hypoxia presented to ER from [facility] with c/o increased confusion. Limited history obtained from patient secondary to mental status. History obtained from patient's son as well and inpatient and outpatient chart review. Patient with recent admissions for decompensated heart failure. Most recent hospitalization [facility] 09/23/23-09/25/23 for increased confusion, hypotension and transferred to [facility] for kidney biopsy for concern of nephropathy. His Plavix and Eliquis had been on hold for kidney biopsy and bone marrow biopsy. Kidney biopsy consistent with membranous glomerulopathy and his kidney function remained relatively stable. He was started on rituximab. Started on Bactrim three days week for prophylaxis. He was also noted to have acute DVT both peroneal veins and was started back on Eliquis. Was discharged from [facility] on 10/02/23. Patient's son states patient has had progressive decline with increased confusion over the past several weeks however past 2 days with increased confusion. He was noted to be naked at nursing facility. Also had BM on floor. He was noted to be crawling around on floor as well. Son states patient has had several falls Denies any known fever, vomiting, diarrhea. Patient only complaint is "legs more swollen" than usual. Patient currently denies any GARCIA, dizziness, neck pain, CP, SOB, palpitations, cough, sore throat, rhinorrhea, abdominal pain, paresthesias, weakness, dysuria, hematuria. Allergies Allergy/AdvReac Type Severity Reaction Status Date / Time No Known Allergies Allergy Unverified 10/06/23 15:42 Home Medications Medication Instructions Recorded Confirmed Type apixaban 5 mg tablet (Eliquis) 5 mg PO BID 08/09/22 10/06/23 History cholecalciferol (vitamin D3) 50 50 mcg PO DAILY 08/09/22 10/06/23 History mcg (2,000 unit) tablet (Vitamin D3) clopidogrel 75 mg tablet 75 mg PO DAILY 08/09/22 10/06/23 History fluoxetine 10 mg capsule 10 mg PO DAILY 08/09/22 10/06/23 History fluticasone propionate 50 1 spray intranasal BID 08/09/22 10/06/23 History mcg/actuation nasal spray,suspension ketoconazole 2 % topical cream 1 applic topical BID PRN flares 08/09/22 10/06/23 History lisinopril 5 mg tablet 5 mg PO DAILY 08/09/22 10/06/23 History metoprolol succinate 25 mg 25 mg PO BID 08/09/22 10/06/23 History tablet,extended release 24 hr nitroglycerin 0.4 mg sublingual 0.4 mg sublingual UD PRN Chest Pain 08/09/22 10/06/23 History tablet rosuvastatin 10 mg tablet 10 mg PO HS 08/09/22 10/06/23 History potassium chloride 20 mEq 20 meq PO BID #60 tabs 09/10/23 10/06/23 Rx tablet,extended release(part/cryst) spironolactone 25 mg tablet 12.5 mg (1/2 x 25 mg) PO DAILY #30 09/10/23 10/06/23 Rx tabs torsemide 20 mg tablet 40 mg (2 x 20 mg) PO QAM #30 tabs 09/10/23 10/06/23 Rx acetaminophen 500 mg tablet 1,000 mg PO BID 09/23/23 10/06/23 History (Tylenol Extra Strength) docusate sodium 100 mg capsule 100 mg PO DAILY 09/23/23 10/06/23 History (Colace) ferrous sulfate 325 mg (65 mg 325 mg PO BID 09/23/23 10/06/23 History iron) tablet (iron) loratadine 10 mg tablet 10 mg PO DAILY 09/23/23 10/06/23 History acetaminophen 325 mg tablet 650 mg PO Q4 PRN Fever Or Pain 10/06/23 10/06/23 History dextromethorphan-guaifenesin 10 10 ml PO Q8 PRN Cough 10/06/23 10/06/23 History mg-100 mg/5 mL oral liquid furosemide 20 mg tablet 20 mg PO DAILY PRN wt gain>3lbs in 10/06/23 10/06/23 History 2 days or edema +2 guaifenesin 400 mg tablet 400 mg PO Q6 PRN congestion/cough 10/06/23 10/06/23 History ketoconazole 2 % shampoo 1 ea topical 3XWK 10/06/23 10/06/23 History melatonin 3 mg tablet 3 mg PO HS PRN Insomnia 10/06/23 10/06/23 History naproxen sodium 220 mg tablet 220 mg PO Q4 PRN Headache 10/06/23 10/06/23 History sulfamethoxazole 800 1 tab PO MOWEFR 10/06/23 10/06/23 History mg-trimethoprim 160 mg tablet Past Med/Surg History Medical History (Updated 10/06/23 @ 20:45 by Sissy Trevizo PA-C) Chronic anemia Dementia Vascular dementia [facility] neurology CKD (chronic kidney disease) stage 3, GFR 30-59 ml/min Nocturnal hypoxemia 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 Permanent atrial fibrillation HLD (hyperlipidemia) HTN (hypertension) CAD (coronary artery disease) History of ischemic cardiomyopathy Hematuria Generalized weakness COVID-19 Surgical History AICD (automatic cardioverter/defibrillator) present Status post biventricular pacemaker and defib Family History Other Family history non-contributory Social History Smoking Status: Never smoker Second Hand Exposure: No; Do You Dip or Chew Tobacco: No; Hx Alcohol Use: No Hx Substance Use: No Preferred Language: Azerbaijani Communication Ability: Effective Sports Marketing Coordinator Required: No Beliefs That Will Affect Care: None Current Living Situation: Personal Care Facility Current Living Situation Comment: [facility] Other Information That Helps Us Care for You: No Feels Safe at Home: Yes Safety Concerns: Feels Safe At This Time Assistive Devices: Cane and Walker Review of Systems Review of Systems: All systems reviewed & are unremarkable except as noted in HPI & below Physical Exam Physical Exam: General: no acute distress, WDWN Head: normocephalic, atraumatic Eyes: PERRL, EOM's intact, conjunctiva non-injected, anicteric ENT: normal inspection external ears, nose, mucous membranes mildly dry Neck: supple, trachea midline, non-tender Lungs: clear, no respiratory distress, no wheezing/rhonchi/rales CV: RRR, + murmur, 2+ pretibial edema Abd: normal BS, soft, non-tender Ext: no cyanosis, no calf tenderness Neuro: A&O x 3, no focal deficits noted, normal affect Skin: warm, dry Results & Data Results & Data Vital Signs (Past 12 Hours) Vital Signs Temp Pulse Pulse Resp BP BP Pulse Ox 10/06/23 13:46 77 16 129/91 100 10/06/23 12:24 76 10/06/23 12:00 78 14 114/83 100 10/06/23 12:00 99 10/06/23 10:32 36.6 C 73 20 124/81 98 O2 Del Method 10/06/23 13:46 Room Air 10/06/23 12:24 10/06/23 12:00 Room Air 10/06/23 12:00 Room Air 10/06/23 10:32 Room Air Laboratory Results Short CBC 10/06/23 Range/Units 11:27 WBC 5.64 (4.8-10.8) K/ul Hgb 9.0 L (14.0-18.0) g/dl Hct 27.6 L (42.0-52.0) % Plt Count 71 L (130-400) K/uL BMP 10/06/23 11:27 Sodium 141 Potassium 4.5 Chloride 114 H Carbon Dioxide 21 BUN 49 H Creatinine 2.22 H Glucose 89 Calcium 8.4 L Liver Function 10/06/23 Range/Units 11:27 Total Bilirubin 0.8 (0.2-1.0) mg/dl AST 30 (13-39) U/L ALT 16 (7-52) U/L Alkaline Phosphatase 95 (34-104) U/L Albumin 3.1 L (3.4-5.0) gm/dl Diagnostic Findings Chest X-Ray 10/06/23 10:38 SINGLE VIEW CHEST CLINICAL HISTORY: Sepsis. FINDINGS: An AP upright chest radiograph is compared to study dated 09/22/2023. The examination is degraded by portable technique and patient rotation. A multilead cardiac AICD is unchanged in position. The heart is enlarged noting atherosclerotic calcification of the thoracic aorta. The pulmonary vasculature is noncongested. Chronic interstitial thickening similar to previous. There is a small right pleural effusion with bibasilar scarring/atelectasis. No airspace consolidation is seen typical for pneumonia. No pneumothorax is seen. The skeletal structures are osteopenic. There are chronic/healed right-sided rib fractures. IMPRESSION: 1. Cardiomegaly and AICD without radiographic evidence of congestive failure. 2. Small right pleural effusion. ACT 112: Negative or not required by law. Electronically signed by: Rigo Crawford M.D. 10/06/2023 11:[address] 10/06/23 12:07 CT SCAN OF THE BRAIN WITHOUT IV CONTRAST CLINICAL HISTORY: Change in mental status. Recent falls. COMPARISON STUDY: CT of the brain dated 09/23/2023. TECHNIQUE: Unenhanced axial CT scan of the brain is performed from the vertex to the skull base. A dose lowering technique was utilized adhering to the principles of ALARA. CT DOSE: 703.85 mGy.cm FINDINGS: Brain parenchyma: There is age-related involutional change noting moderate subcortical and periventricular microangiopathic disease. There is no hemorrhage, mass effect, or evidence of acute territorial ischemia by CT criteria. Chronic lacunar infarcts are noted in both cerebellar hemispheres in the left basal ganglia. There is encephalomalacia from a chronic right temporoparietal infarct. Call-white matter differentiation is preserved. No extra-axial fluid collection is seen. Ventricles, sulci, cisterns: Prominent secondary to involutional change. Intracranial vasculature: There is atherosclerotic calcification of the cavernous carotid and vertebral arteries. Calvarium: Unremarkable. Sinuses and mastoids: There is a 2 cm retention cyst in the right maxillary antrum. The remaining paranasal sinuses are clear. The mastoid air cells are well pneumatized. Orbits: The bony orbits are grossly intact. There are bilateral ocular lens implants. IMPRESSION: There is no hemorrhage, mass effect, or evidence of acute territorial ischemia by CT criteria. ACT 112: Negative or not required by law. Electronically signed by: Rigo Crawford M.D. 10/06/2023 2:17 PM ECG Additional Comments: Paced rhythm per my interpretation Supervising Physician Co-Signing Physician Notes 83-year-old male with PMH of vascular dementia,..., who was recently admitted 09/23/2023 to 09/25/2023 for increased confusion when he was transferred to [facility] for kidney biopsy for concern of nephropathy/he was started on rituximab for concern of glomerulonephritis at [facility] presented today with acute worsening [x 1 day] of the confusion that initiated prior to arrival on 09/23/2023. He is noted to be more confused, found pooping on the floor, crawling around, naked yesterday. Patient appears alert and awake, could answer orientation questions at bedside exam, but lacks insight and not aware of why he is in the hospital. Patient denied any chest pain. Per his son at bedside, concern of decreased food and fluid intake recently. Labs and imaging reviewed. Creatinine 2.22 [baseline creatinine around 1.5-1.7] troponin at 1689, up trended to 3549. Procalcitonin negative. Respiratory viral panel negative. CXR with small right pleural effusion. CT head with no acute finding. EKG with ventricular paced rhythm. Cardiology consulted for elevated/uptrending troponin. Plan to continue home dose of Eliquis. EKG in a.m. and with chest pain. Update echo. JOHN over CKD in the setting of recent renal biopsy/rituximab for glomerulonephritis: Patient on prophylactic dose of Bactrim. Consult nephrology. 09/23/2023 echo with EF of 50 to 55%. Will hold nephrotoxic's, gentle IV fluid with half NS at 50 mils an hour. Aldactone/torsemide/lisinopril on hold; and hence potassium is also on hold. Metabolic encephalopathy: Multifactorial, CT head negative, if no improvement with improving troponin and renal function, consider neurology consult. On Exam: GENERAL: Awake and alert, lacks insight, NAD, on room air HEENT: No pallor, no icterus. Pupils equal, round and reactive to light. Oral mucosa dry. NECK: No JVD, no neck masses. HEART: S1 and S2 heard. Regular rate and rhythm. No murmur, no gallop. RESPIRATORY SYSTEM: Normal AP diameter. No accessory muscle use. No wheezing, no crackles. ABDOMEN: Soft, bowel sounds present, nontender, no distention. CENTRAL NERVOUS SYSTEM: No facial droop. Speech is clear. Obeys simple commands. Moves extremities. EXTREMITIES: 1+ ble edema, no erythema seen. I have seen and examined the patient and have discussed the case with the provider above. I agree with the assessment and plan as stated.
--- NOTE | 2023-10-06 15:26 | Electrocardiogram Report ---
Test Reason : Blood Pressure : / mmHG Vent. Rate : 075 BPM Atrial Rate : 072 BPM P-R Int : 000 ms QRS Dur : 162 ms QT Int : 484 ms P-R-T Axes : 000 256 092 degrees QTc Int : 540 ms Ventricular-paced rhythm Abnormal ECG When compared with ECG of 22-SEP-2023 21:17, Vent. rate has decreased BY 4 BPM Confirmed by Clinton Jaffe ([id number]) on 10/06/2023 3:25:34 PM Referred By: Zaire Alcocer Confirmed By:Clinton Jaffe
--- NOTE | 2023-10-06 15:39 | Cardiology Consultation ---
Date of Consultation October 06, 2023 Assessment & Plan (1) Delirium: (2) Elevated troponin: (3) Permanent atrial fibrillation: (4) Renal failure (ARF), acute on chronic: (5) Primary membranous nephropathy with nephrotic syndrome: Plan Complex 83-year-old male with known ischemic heart disease prior ischemic cardiomyopathy, membranous glomerulonephritis with nephrotic syndrome Patient presents now with acute mental status changes and delirium confusion. Mild increase in lower extremity edema as well as worsening renal function Suspect multifactorial etiology question ischemia, medications, worsening renal function. Cannot rule out infection Recently treated with rituximab Given rising troponin acute coronary syndrome cannot be excluded however patient completely asymptomatic currently. Anticoagulated with Eliquis would not heparinize Continue prehospital medication Discussed conservative management with son who is agreeabl cardiology will follow up Echocardiogram this admission History of Present Illness Reason for Consultation: Confusion, disorientation, elevated troponin Requesting Physician: Dr. Mobley History of Present Illness Patient is an 83-year-old male with ongoing cardiac concerns 1. Dilated ischemic cardiomyopathy, past history of remote myocardial infarction moderate to severe left ventricular dysfunction in past with improved LV function on most recent interrogations last ejection fraction 50 to 55% 2. Prior multiple coronary interventions 3. Pacer defibrillator implantation , biventricular, Medtronic Viva Quad [id number] 01/27/2017 4. Mitral insufficiency moderate to severe 5. Atrial fibrillation. Long-term persistent 6. Past TIA stroke on chronic anticoagulation 7. 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 Membranous glomerulonephritis with nephrotic level proteinuria Patient referred from ER with notable history of several recent hospitalizations with right greater than left heart failure worsening edema secondary to hypoalbuminemia/proteinuria As part of evaluation patient has undergone renal biopsy at [facility] as well as bone marrow biopsy Started on rituximab for glomerulonephritis Patient unable to add additional history to current presentation today but son present who notes recent difficulties with increasing lower extremity edema as well as worsening confusion. Today patient found naked crawling in room and disoriented No noted fevers or chills denies any chest pain or discomfort Has had increase in weight recently with increased lower extremity edema Troponin significantly elevated on ER presentation today Patient currently denies any complaints and comfortable. EKG atrial fibrillation with ventricular paced rhythm at 75 bpm Chest x-ray trivial pleural effusion no infiltrate or edema cardiomegaly and pacer defibrillator in place Allergies Allergy/AdvReac Type Severity Reaction Status Date / Time No Known Allergies Allergy Unverified 10/06/23 15:42 Home Medications Medication Instructions Recorded Confirmed Type apixaban 5 mg tablet (Eliquis) 5 mg PO BID 08/09/22 10/06/23 History cholecalciferol (vitamin D3) 50 50 mcg PO DAILY 08/09/22 10/06/23 History mcg (2,000 unit) tablet (Vitamin D3) clopidogrel 75 mg tablet 75 mg PO DAILY 08/09/22 10/06/23 History fluoxetine 10 mg capsule 10 mg PO DAILY 08/09/22 10/06/23 History fluticasone propionate 50 1 spray intranasal BID 08/09/22 10/06/23 History mcg/actuation nasal spray,suspension ketoconazole 2 % topical cream 1 applic topical BID PRN flares 08/09/22 10/06/23 History lisinopril 5 mg tablet 5 mg PO DAILY 08/09/22 10/06/23 History metoprolol succinate 25 mg 25 mg PO BID 08/09/22 10/06/23 History tablet,extended release 24 hr nitroglycerin 0.4 mg sublingual 0.4 mg sublingual UD PRN Chest Pain 08/09/22 10/06/23 History tablet rosuvastatin 10 mg tablet 10 mg PO HS 08/09/22 10/06/23 History potassium chloride 20 mEq 20 meq PO BID #60 tabs 09/10/23 10/06/23 Rx tablet,extended release(part/cryst) spironolactone 25 mg tablet 12.5 mg (1/2 x 25 mg) PO DAILY #30 09/10/23 10/06/23 Rx tabs torsemide 20 mg tablet 40 mg (2 x 20 mg) PO QAM #30 tabs 09/10/23 10/06/23 Rx acetaminophen 500 mg tablet 1,000 mg PO BID 09/23/23 10/06/23 History (Tylenol Extra Strength) docusate sodium 100 mg capsule 100 mg PO DAILY 09/23/23 10/06/23 History (Colace) ferrous sulfate 325 mg (65 mg 325 mg PO BID 09/23/23 10/06/23 History iron) tablet (iron) loratadine 10 mg tablet 10 mg PO DAILY 09/23/23 10/06/23 History acetaminophen 325 mg tablet 650 mg PO Q4 PRN Fever Or Pain 10/06/23 10/06/23 History dextromethorphan-guaifenesin 10 10 ml PO Q8 PRN Cough 10/06/23 10/06/23 History mg-100 mg/5 mL oral liquid furosemide 20 mg tablet 20 mg PO DAILY PRN wt gain>3lbs in 10/06/23 10/06/23 History 2 days or edema +2 guaifenesin 400 mg tablet 400 mg PO Q6 PRN congestion/cough 10/06/23 10/06/23 History ketoconazole 2 % shampoo 1 ea topical 3XWK 10/06/23 10/06/23 History melatonin 3 mg tablet 3 mg PO HS PRN Insomnia 10/06/23 10/06/23 History naproxen sodium 220 mg tablet 220 mg PO Q4 PRN Headache 10/06/23 10/06/23 History sulfamethoxazole 800 1 tab PO MOWEFR 10/06/23 10/06/23 History mg-trimethoprim 160 mg tablet Patient History Medical History Vascular dementia GMG neurology CKD (chronic kidney disease) stage 3, GFR 30-59 ml/min Nocturnal hypoxemia Stroke [facility] current use of 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 Permanent atrial fibrillation HLD (hyperlipidemia) HTN (hypertension) CAD (coronary artery disease) History of ischemic cardiomyopathy Hematuria Generalized weakness COVID-19 Surgical History AICD (automatic cardioverter/defibrillator) present Status post biventricular pacemaker and defib Family History Other Family history non-contributory Social History Smoking Status: Never smoker Second Hand Exposure: No; Do You Dip or Chew Tobacco: No; Hx Alcohol Use: No Hx Substance Use: No Preferred Language: Maltese Communication Ability: Effective Survey And Mapping Technician Required: No Beliefs That Will Affect Care: Pentecostal Current Living Situation: Personal Care Facility Current Living Situation Comment: [place] [facility] Feels Safe at Home: Yes Assistive Devices: Cane and Walker Physical Exam Constitutional: well developed and well nourished; no acute distress Eyes: PERRL, conjunctivae normal, anicteric sclerae Neck: trachea midline, no thyromegaly Respiratory: Auscultation: + diminished lung sounds; no rales and no wheezes Cardiovascular: Rate/Rhythm: regular rhythm (Paced) Vessels: no JVD Extremities: + edema (2-3+ lower extremity edema with compression stockings in place) Gastrointestinal (Abdomen): normal bowel sounds, soft, nontender, no hepatospl enomegaly Skin: no rashes, warm and dry Neurologic: Patient awake alert oriented to person Results & Data Vital Signs (Past 12 Hours) Vital Signs Temp Pulse Pulse Resp BP BP Pulse Ox 10/06/23 13:46 77 16 129/91 100 10/06/23 12:24 76 10/06/23 12:00 78 14 114/83 100 10/06/23 12:00 99 10/06/23 10:32 36.6 C 73 20 124/81 98 O2 Del Method 10/06/23 13:46 Room Air 10/06/23 12:24 10/06/23 12:00 Room Air 10/06/23 12:00 Room Air 10/06/23 10:32 Room Air Laboratory Results Laboratory Results - last 24 hr 10/06/23 10/06/23 10/06/23 11:27 11:39 12:26 WBC 5.64 RBC 2.55 L Hgb 9.0 L Hct 27.6 L MCV 108.2 H MCH 35.3 H MCHC 32.6 RDW Std Deviation 52.4 H RDW Coeff of Tucker 13.2 Plt Count 71 L MPV 10.9 Immature Gran % (Auto) 0.2 Neut % (Auto) 65.9 Lymph % (Auto) 15.6 [place] % (Auto) 13.7 Eos % (Auto) 3.5 Baso % (Auto) 1.1 Neut # (Auto) 3.72 Lymph # (Auto) 0.88 L [place] # (Auto) 0.77 H Eos # (Auto) 0.20 Baso # (Auto) 0.06 Immature Gran # (Auto) 0.01 PT 12.5 H INR 1.2 H APTT 31.0 PTT Ratio 1.1 Sodium 141 Potassium 4.5 Chloride 114 H Carbon Dioxide 21 Anion Gap 6 BUN 49 H Creatinine 2.22 H Est Cr Clr Drug Dosing Not Reportable Est GFR ( Amer) 30.4 Est GFR (Non-Af Amer) 26.2 BUN/Creatinine Ratio 22.1 H Glucose 89 Lactate 1.3 Calcium 8.4 L Magnesium 2.5 H Total Bilirubin 0.8 AST 30 ALT 16 Alkaline Phosphatase 95 Troponin I High Sens 1689.4 H* Total Protein 5.5 L Albumin 3.1 L Globulin 2.4 L Albumin/Globulin Ratio 1.3 Procalcitonin 0.07 Adenovirus (PCR) Not Detected B. pertussis DNA (PCR) Not Detected B.parapertussis DNA PCR Not Detected C. pneumoniae DNA (PCR) Not Detected Coronavirus OC43 (PCR) Not Detected Coronavirus HKU1 (PCR) Not Detected Coronavirus 229E (PCR) Not Detected SARS-CoV-2 (PCR) Not Detected Coronavirus NL63 (PCR) Not Detected Human Metapneumovir PCR Not Detected Influenza Type A (PCR) Not Detected Influenza Type B (PCR) Not Detected M. pneumoniae (PCR) Not Detected Parainfluenza 1 (PCR) Not Detected Parainfluenza 2 (PCR) Not Detected Parainfluenza 3 (PCR) Not Detected Parainfluenza 4 (PCR) Not Detected RSV (PCR) Not Detected Entero/Rhino (PCR) Not Detected 10/06/23 13:16 WBC RBC Hgb Hct MCV MCH MCHC RDW Std Deviation RDW Coeff of Tucker Plt Count MPV Immature Gran % (Auto) Neut % (Auto) Lymph % (Auto) [place] % (Auto) Eos % (Auto) Baso % (Auto) Neut # (Auto) Lymph # (Auto) [place] # (Auto) Eos # (Auto) Baso # (Auto) Immature Gran # (Auto) PT INR APTT PTT Ratio Sodium Potassium Chloride Carbon Dioxide Anion Gap BUN Creatinine Est Cr Clr Drug Dosing Est GFR ( Amer) Est GFR (Non-Af Amer) BUN/Creatinine Ratio Glucose Lactate Calcium Magnesium Total Bilirubin AST ALT Alkaline Phosphatase Troponin I High Sens 3549.6 H* D Total Protein Albumin Globulin Albumin/Globulin Ratio Procalcitonin Adenovirus (PCR) B. pertussis DNA (PCR) B.parapertussis DNA PCR C. pneumoniae DNA (PCR) Coronavirus OC43 (PCR) Coronavirus HKU1 (PCR) Coronavirus 229E (PCR) SARS-CoV-2 (PCR) Coronavirus NL63 (PCR) Human Metapneumovir PCR Influenza Type A (PCR) Influenza Type B (PCR) M. pneumoniae (PCR) Parainfluenza 1 (PCR) Parainfluenza 2 (PCR) Parainfluenza 3 (PCR) Parainfluenza 4 (PCR) RSV (PCR) Entero/Rhino (PCR)
[2023-10-06] MEDS ORDERED: ONDANSETRON INJ 2 MG/ML 2 ML VIAL IV PRN (17:23)
[2023-10-06] MEDS ORDERED: ACETAMINOPHEN 325 MG TAB PO PRN (17:23)
[2023-10-06] MEDS ORDERED: POLYETHYLENE (MIRALAX) 17 GM PACK PO PRN (17:23)
[2023-10-06] MEDS ORDERED: SODIUM CHLORIDE 0.45 % 1,000 ML IV SCH (19:15)
[2023-10-06] MEDS ORDERED: NITROGLYCERIN SL 0.4 MG/TAB TAB SL PRN (20:26)
[2023-10-06] MEDS: ROSUVASTATIN CALCIUM 10 MG TAB PO SCH (20:57)
[2023-10-06] MEDS: APIXABAN 5 MG TABLET PO SCH (20:57)
[2023-10-06] MEDS: METOPROLOL SUCC 25MG EXT REL TAB PO SCH (20:58)
[2023-10-06] MEDS: ACETAMINOPHEN 500 MG TAB PO SCH (20:59)
[2023-10-06] MEDS ORDERED: POTASSIUM CHLORIDE CRTAB 20 MEQ TABCR PO SCH (21:00)
[2023-10-06] MEDS: FLUTICASONE PROPIONATE NA SPR 16 GM BTL NAE SCH (21:00)
[2023-10-06] MEDS: FERROUS SULFATE 325 MG TAB PO SCH (21:00)
[2023-10-06 21:18] LABS: Appearance Urine Clear (Clear); Bacteria Urine Automated Negative (Negative); Bilirubin Urine Negative (Negative); Blood Urine 3+ (Negative); Color Urine Orange; Epithelial Cell Urine Auto >30 /lpf (0-5); Glucose Urine UA Trace (Negative); Ketones Urine Negative (Negative); Leukocyte Esterase Urine Trace (Negative); Nitrite Urine Negative (Negative); Protein Urine 4+ (Negative); RBC Urine Automated >30 /hpf (0-4); Specific Gravity Urine 1.023 (1.000-1.030); Urobilinogen Urine Negative (Negative)
[2023-10-07] MEDS ORDERED: PNEUMOCOCCAL VACCINE (PCV20) 20-VAL CONJ-DIP CRM/PF 0.5 ML SYR IM ONE (01:15)
[2023-10-07 07:41] LABS: Basophils # (auto) 0.09 K/uL (0.00-0.20); Basophils % (auto) 1.3 %; Eosinophils # (auto) 0.42 K/uL (0.00-0.50); Eosinophils % (auto) 5.9 %; Hematocrit (blood only) 26.9 % (42.0-52.0); Hemoglobin 8.8 g/dl (14.0-18.0); Immature Granulocytes # (auto) 0.02 K/uL (0.01-0.20); Immature Granulocytes % (auto) 0.3 %; Lymphocytes # (auto) 0.98 K/uL (1.20-3.40); Lymphocytes % (auto) 13.8 %; Mean Corpuscular Hemoglobin 34.9 pg (25.0-34.0); Mean Corpuscular Hgb Conc 32.7 g/dL (32.0-36.0); Mean Corpuscular Volume 106.7 fL (80.0-100.0); Mean Platelet Volume 10.9 fL (9.4-12.4); Monocytes # (auto) 0.89 K/uL (0.11-0.59); Monocytes % (auto) 12.5 %; Neutrophils % (auto) 66.2 %; Platelet Count 65 K/uL (130-400); RDW Coefficient of Variation 13.1 % (11.5-14.5); RDW Standard Deviation 51.2 fL (36.4-46.3); Red Blood Count 2.52 M/uL (4.70-6.10)
[2023-10-07] MEDS: APIXABAN 5 MG TABLET PO SCH ×2 (08:00→22:32)
[2023-10-07] MEDS: ACETAMINOPHEN 500 MG TAB PO SCH ×2 (08:00→22:33)
[2023-10-07] MEDS: FERROUS SULFATE 325 MG TAB PO SCH ×2 (08:00→11:28)
[2023-10-07] MEDS: METOPROLOL SUCC 25MG EXT REL TAB PO SCH ×2 (08:00→22:32)
[2023-10-07] MEDS: FLUTICASONE PROPIONATE NA SPR 16 GM BTL NAE SCH ×2 (08:00→22:31)
[2023-10-07] MEDS: CLOPIDOGREL BISULFATE 75 MG TAB PO SCH (08:01)
[2023-10-07] MEDS: DOCUSATE SODIUM 100 MG CAP PO SCH (08:01)
[2023-10-07] MEDS: CHOLECALCIFEROL 1,000 UNITS 25 MCG TAB PO SCH (08:01)
[2023-10-07] MEDS: LORATADINE 10 MG TAB PO SCH (08:01)
[2023-10-07 08:08] LABS: Albumin Globulin Ratio 1.4 (0.9-2); Albumin Level 2.7 gm/dl (3.4-5.0); BUN Creatinine Ratio 21.2 (10-20); Bilirubin,Total 0.7 mg/dl (0.2-1.0); Calcium 7.9 mg/dl (8.6-10.3); Creatinine Clr Calc Pharmacy 37.6 ml/min; Est GFR (African American) 34.9 ml/min; Est GFR (Non-African American) 30.1 ml/min; Potassium 4.4 mmol/L (3.5-5.1); Total Protein 4.7 gm/dl (6.0-8.3)
[2023-10-07] MEDS ORDERED: TORSEMIDE 20 MG TAB PO SCH (09:00)
[2023-10-07] MEDS ORDERED: SPIRONOLACTONE 12.5 MG TAB PO SCH (09:00)
[2023-10-07] MEDS ORDERED: lisinopril 5 MG TAB PO SCH (09:00)
[2023-10-07] MEDS ORDERED: FLUoxetine HCL 10 MG CAP PO SCH (09:00)
--- NOTE | 2023-10-07 11:51 | Nephrology Consultation ---
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 Creatinine 2.1 and 13 g proteinuria on most recent testing. Has been started with Rituxan and has received first dose. Second dose to be received in 2-week. Already has nephrology appointment in 2 days and as much as possible he needs to attend that. Continue all the current medications including Bactrim prophylaxis as well as all the diuretics he was getting at home. No need of IV fluid and will stop. Current creatinine of 2.1 is same as his discharge creatinine (2) Metabolic encephalopathy: Not exactly clear. But at this time he seems fairly normal. Defer to primary Plan Case complexity high. Time spent 1 hour 10-minute including extensive review of recent hospitalization and transfer and biopsy History of Present Illness Reason for Consultation: management of newly diagnosed membranous nephropathy while inpatient Attending Physician: Remigio Rivers MD History of Present Illness 83-year-old male who was newly diagnosed with membranous nephropathy. He was transferred from [facility] to [facility] where he had renal biopsy for massive proteinuria of 11 g with nephrotic syndrome. 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 Mild interstitial fibrosis and tubular atrophy . patient does have CKD with a baseline creatinine of around 2.1. He was given first dose of Rituxan infusion while in [facility]. Got the first dose of rituximab 1 g premedicated with steroids Tylenol and Benadryl. He has follow-up with Dr. Gisele Romero in 2 days and nephrology in [place]. Tolerated the infusion well. Was discharged 10/02/2023 creat 2.1. Most recent proteinuria is 13 g on the 24-hour urine. Patient is a resident of [facility] which is an assisted living and was sent over because of confusion/encephalopathy. he has CAD, history of dilated ischemic cardiomyopathy with now improved and preserved EF, biventricular pacemaker/defibrillator implantation, mitral insufficiency, permanent atrial fibrillation anticoagulated on Eliquis, history of CVA and nocturnal hypoxia. Limited history obtained from patient secondary to mental status. However at this very moment he does not seem that confused and was able to answer most of the questions with full accuracy. As per the RN taking care of the patient he seems stable both hemodynamically as well as mental. He had normal breakfast earlier today. He was also seen by cardiology for elevated troponin but conservative management for the time Review of system----12 systems reviewed and is otherwise negative Physical examination --- Awake alert oriented times x 3. He was able to tell most of his recent health problem with good accuracy. No respiratory distress. Mucous membrane is moist neck is supple no JVD Chest bilateral clear to auscultation CVS S1-S2 regular soft systolic murmur 1+ edema noted Abdomen is soft nontender Extremities shows 1+ edema Skin did not show any rash. Allergies Allergy/AdvReac Type Severity Reaction Status Date / Time No Known Allergies Allergy Unverified 10/06/23 15:42 Home Medications Medication Instructions Recorded Confirmed Type apixaban 5 mg tablet (Eliquis) 5 mg PO BID 08/09/22 10/06/23 History cholecalciferol (vitamin D3) 50 50 mcg PO DAILY 08/09/22 10/06/23 History mcg (2,000 unit) tablet (Vitamin D3) clopidogrel 75 mg tablet 75 mg PO DAILY 08/09/22 10/06/23 History fluoxetine 10 mg capsule 10 mg PO DAILY 08/09/22 10/06/23 History fluticasone propionate 50 1 spray intranasal BID 08/09/22 10/06/23 History mcg/actuation nasal spray,suspension ketoconazole 2 % topical cream 1 applic topical BID PRN flares 08/09/22 10/06/23 History lisinopril 5 mg tablet 5 mg PO DAILY 08/09/22 10/06/23 History metoprolol succinate 25 mg 25 mg PO BID 08/09/22 10/06/23 History tablet,extended release 24 hr nitroglycerin 0.4 mg sublingual 0.4 mg sublingual UD PRN Chest Pain 08/09/22 10/06/23 History tablet rosuvastatin 10 mg tablet 10 mg PO HS 08/09/22 10/06/23 History potassium chloride 20 mEq 20 meq PO BID #60 tabs 09/10/23 10/06/23 Rx tablet,extended release(part/cryst) spironolactone 25 mg tablet 12.5 mg (1/2 x 25 mg) PO DAILY #30 09/10/23 10/06/23 Rx tabs torsemide 20 mg tablet 40 mg (2 x 20 mg) PO QAM #30 tabs 09/10/23 10/06/23 Rx acetaminophen 500 mg tablet 1,000 mg PO BID 09/23/23 10/06/23 History (Tylenol Extra Strength) docusate sodium 100 mg capsule 100 mg PO DAILY 09/23/23 10/06/23 History (Colace) ferrous sulfate 325 mg (65 mg 325 mg PO BID 09/23/23 10/06/23 History iron) tablet (iron) loratadine 10 mg tablet 10 mg PO DAILY 09/23/23 10/06/23 History acetaminophen 325 mg tablet 650 mg PO Q4 PRN Fever Or Pain 10/06/23 10/06/23 History dextromethorphan-guaifenesin 10 10 ml PO Q8 PRN Cough 10/06/23 10/06/23 History mg-100 mg/5 mL oral liquid furosemide 20 mg tablet 20 mg PO DAILY PRN wt gain>3lbs in 10/06/23 10/06/23 History 2 days or edema +2 guaifenesin 400 mg tablet 400 mg PO Q6 PRN congestion/cough 10/06/23 10/06/23 History ketoconazole 2 % shampoo 1 ea topical 3XWK 10/06/23 10/06/23 History melatonin 3 mg tablet 3 mg PO HS PRN Insomnia 10/06/23 10/06/23 History naproxen sodium 220 mg tablet 220 mg PO Q4 PRN Headache 10/06/23 10/06/23 History sulfamethoxazole 800 1 tab PO MOWEFR 10/06/23 10/06/23 History mg-trimethoprim 160 mg tablet Patient History Medical History Chronic anemia Dementia Vascular dementia G neurology CKD (chronic kidney disease) stage 3, GFR 30-59 ml/min Nocturnal hypoxemia Stroke intermediate current use of 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 Permanent atrial fibrillation HLD (hyperlipidemia) HTN (hypertension) CAD (coronary artery disease) History of ischemic cardiomyopathy Hematuria Generalized weakness COVID-19 Surgical History AICD (automatic cardioverter/defibrillator) present Status post biventricular pacemaker and defib Family History Other Family history non-contributory Social History Smoking Status: Never smoker Second Hand Exposure: No; Do You Dip or Chew Tobacco: No; Hx Alcohol Use: No Hx Substance Use: No Preferred Language: Montserratian Communication Ability: Effective Weatherization Coordinator Required: No Beliefs That Will Affect Care: None Current Living Situation: Personal Care Facility Current Living Situation Comment: [place] [employer] [facility] care Other Information That Helps Us Care for You: No Feels Safe at Home: Yes Safety Concerns: Feels Safe At This Time Assistive Devices: Cane and Walker Results & Data Vital Signs (Past 12 Hours) Vital Signs Temp Pulse Pulse Resp BP Pulse Ox O2 Del Method 10/07/23 11:27 36.4 C L 77 18 114/73 98 Room Air 10/07/23 07:15 36.5 C 75 14 113/71 100 Room Air 10/07/23 03:00 36.6 C 75 16 127/77 99 Room Air 10/07/23 01:34 80 Laboratory Results Current creatinine 2.1 which is about the same as his discharge creatinine from few days
--- NOTE | 2023-10-07 12:51 | Cardiology Progress Note ---
Date of Service October 07, 2023 Assessment & Plan (1) Delirium: (2) Elevated troponin: (3) Permanent atrial fibrillation: (4) Renal failure (ARF), acute on chronic: (5) Primary membranous nephropathy with nephrotic syndrome: Plan Complex 83-year-old male with known ischemic heart disease prior ischemic cardiomyopathy, membranous glomerulonephritis with nephrotic syndrome Patient presents now with acute mental status changes and delirium confusion. Mild increase in lower extremity edema as well as worsening renal function Suspect multifactorial etiology question ischemia, medications, worsening renal function. Cannot rule out infection Recently treated with rituximab Given rising troponin acute coronary syndrome cannot be excluded however patient completely asymptomatic currently. Anticoagulated with Eliquis would not heparinize Continue prehospital medication Discussed conservative management with son who is agreeable. cardiology will follow up Echocardiogram this admission 10/07/2023 Patient presented with acute delirium, confusional state now improving. Chronic lower extremity edema though without pulmonary edema Echocardiogram with prior thin apical infarct but otherwise normal LV contractility similar to prior echocardiograms. Severe mitral insufficiency present Etiology of acute troponin elevation uncertain we will continue conservative therapy. Patient did not present with acute coronary syndrome but delirium, question medication induced. Recent corticosteroids and rituximab Diuretics recently changed from furosemide to torsemide with spironolactone Will resume oral diuretic reduced dose torsemide 20 mg/day with compression stockings lower extremities. Restart spironolactone in a.m. Chronically anticoagulated with Eliquis Admission and Anticipated Discharge Date Admission Date: October 06, 2023 Subjective Patient seen and examined, chart, medications, telemetry reviewed More alert more oriented this morning Once again denies chest pains, shortness of breath. Chronic lower extremity edema present Troponin significantly elevated but disproportionate to LV dysfunction on echocardiogram Review of Systems Review of Systems: All systems reviewed & are unremarkable except as noted in Subjective Physical Exam Constitutional: well developed and well nourished; no acute distress Eyes: PERRL, conjunctivae normal, anicteric sclerae Neck: trachea midline, no thyromegaly Respiratory: Auscultation: + diminished lung sounds; no rales and no wheezes Cardiovascular: Rate/Rhythm: regular rhythm (Paced) Vessels: no JVD Extremities: + edema (2-3+ lower extremity edema with compression stockings in place) Gastrointestinal (Abdomen): normal bowel sounds, soft, nontender, no hepatosplenomegaly Skin: no rashes, warm and dry Results & Data Vital Signs (Past 12 Hours) Vital Signs Temp Pulse Pulse Resp BP Pulse Ox O2 Del Method 10/07/23 11:27 36.4 C L 77 18 114/73 98 Room Air 10/07/23 07:15 36.5 C 75 14 113/71 100 Room Air 10/07/23 03:00 36.6 C 75 16 127/77 99 Room Air 10/07/23 01:34 80 Laboratory Results Laboratory Results - last 24 hr 10/06/23 10/06/23 10/06/23 12:26 13:16 19:17 WBC RBC Hgb Hct MCV MCH MCHC RDW Std Deviation RDW Coeff of Tucker Plt Count MPV Immature Gran % (Auto) Neut % (Auto) Lymph % (Auto) [place] % (Auto) Eos % (Auto) Baso % (Auto) Neut # (Auto) Lymph # (Auto) [place] # (Auto) Eos # (Auto) Baso # (Auto) Immature Gran # (Auto) Sodium Potassium Chloride Carbon Dioxide Anion Gap BUN Creatinine Est Cr Clr Drug Dosing Est GFR ( Amer) Est GFR (Non-Af Amer) BUN/Creatinine Ratio Glucose Calcium Total Bilirubin AST ALT Alkaline Phosphatase Troponin I High Sens 3549.6 H* D 9649.4 H* D Total Protein Albumin Globulin Albumin/Globulin Ratio Urine Color Urine Appearance Urine pH Ur Specific [place] Urine Protein Urine Glucose (UA) Urine Ketones Urine Blood Urine Nitrite Urine Bilirubin Urine Urobilinogen Ur Leukocyte Esterase Urine WBC (Auto) Urine RBC (Auto) U Hyaline Cast (Auto) U Epithel Cells (Auto) Urine Bacteria (Auto) Ur Renal Epithelial Cell Nasal Screen MRSA (PCR) Adenovirus (PCR) Not Detected B. pertussis DNA (PCR) Not Detected B.parapertussis DNA PCR Not Detected C. pneumoniae DNA (PCR) Not Detected Coronavirus OC43 (PCR) Not Detected Coronavirus HKU1 (PCR) Not Detected Coronavirus 229E (PCR) Not Detected SARS-CoV-2 (PCR) Not Detected Coronavirus NL63 (PCR) Not Detected Human Metapneumovir PCR Not Detected Influenza Type A (PCR) Not Detected Influenza Type B (PCR) Not Detected M. pneumoniae (PCR) Not Detected Parainfluenza 1 (PCR) Not Detected Parainfluenza 2 (PCR) Not Detected Parainfluenza 3 (PCR) Not Detected Parainfluenza 4 (PCR) Not Detected RSV (PCR) Not Detected Entero/Rhino (PCR) Not Detected 10/06/23 10/07/23 10/07/23 Unknown 00:54 06:56 WBC 7.10 RBC 2.52 L Hgb 8.8 L Hct 26.9 L MCV 106.7 H MCH 34.9 H MCHC 32.7 RDW Std Deviation 51.2 H RDW Coeff of Tucker 13.1 Plt Count 65 L MPV 10.9 Immature Gran % (Auto) 0.3 Neut % (Auto) 66.2 Lymph % (Auto) 13.8 [place] % (Auto) 12.5 Eos % (Auto) 5.9 Baso % (Auto) 1.3 Neut # (Auto) 4.70 Lymph # (Auto) 0.98 L [place] # (Auto) 0.89 H Eos # (Auto) 0.42 Baso # (Auto) 0.09 Immature Gran # (Auto) 0.02 Sodium 142 Potassium 4.4 Chloride 116 H Carbon Dioxide 22 Anion Gap 4 BUN 42 H Creatinine 1.98 H Est Cr Clr Drug Dosing 37.6 Est GFR ( Amer) 34.9 Est GFR (Non-Af Amer) 30.1 BUN/Creatinine Ratio 21.2 H Glucose 85 Calcium 7.9 L Total Bilirubin 0.7 AST 44 H ALT 15 Alkaline Phosphatase 86 Troponin I High Sens 89105.6 H* D 28195.1 H* Total Protein 4.7 L Albumin 2.7 L Globulin 2.0 L Albumin/Globulin Ratio 1.4 Urine Color [place] Urine Appearance Clear Urine pH 7.0 Ur Specific [place] 1.023 Urine Protein 4+ H Urine Glucose (UA) Trace H Urine Ketones Negative Urine Blood 3+ H Urine Nitrite Negative Urine Bilirubin Negative Urine Urobilinogen Negative Ur Leukocyte Esterase Trace H Urine WBC (Auto) 1-5 Urine RBC (Auto) >30 H U Hyaline Cast (Auto) 5-10 H U Epithel Cells (Auto) >30 H Urine Bacteria (Auto) Negative Ur Renal Epithelial Cell Not Reportable Nasal Screen MRSA (PCR) Negative Adenovirus (PCR) B. pertussis DNA (PCR) B.parapertussis DNA PCR C. pneumoniae DNA (PCR) Coronavirus OC43 (PCR) Coronavirus HKU1 (PCR) Coronavirus 229E (PCR) SARS-CoV-2 (PCR) Coronavirus NL63 (PCR) Human Metapneumovir PCR Influenza Type A (PCR) Influenza Type B (PCR) M. pneumoniae (PCR) Parainfluenza 1 (PCR) Parainfluenza 2 (PCR) Parainfluenza 3 (PCR) Parainfluenza 4 (PCR) RSV (PCR) Entero/Rhino (PCR) ECG Additional Comments: Ventricular paced rhythm
--- NOTE | 2023-10-07 13:46 | Electrocardiogram Report ---
Test Reason : Blood Pressure : / mmHG Vent. Rate : 078 BPM Atrial Rate : 038 BPM P-R Int : 000 ms QRS Dur : 166 ms QT Int : 486 ms P-R-T Axes : 000 -30 090 degrees QTc Int : 554 ms Ventricular-paced rhythm Biventricular pacemaker detected Abnormal ECG When compared with ECG of 06-OCT-2023 11:44, Vent. rate has increased BY 3 BPM Confirmed by Clinton Jaffe [id number]) on 10/07/2023 1:46:10 PM Referred By: Zaire Alcocer Confirmed By:Clinton Jaffe
[2023-10-07] MEDS: TORSEMIDE 10 MG TAB PO SCH (14:03)
--- NOTE | 2023-10-07 15:33 | Hospitalist Progress Note ---
Date of Service October 07, 2023 Assessment & Plan (1) Metabolic encephalopathy: (2) Dementia: Plan: Patient is 83 y/o M with PMH CAD, history of dilated ischemic cardiomyopathy with now improved and preserved EF, biventricular pacemaker/defibrillator implantation, mitral insufficiency, permanent atrial fibrillation anticoagulated on Eliquis, history of CVA and nocturnal hypoxia presented to ER from [facility] with c/o increased confusion. Altered mental status In setting of dementia Likely delirium DD: Rituximab/Steroid use, Uremia No source of infection noted currently CT head:There is no hemorrhage, mass effect, or evidence of acute territorial ischemia by CT criteria. BioFire negative Blood cultures negative to date Recent TSH, B12 levels normal UA not suggestive of UTI Mental status slowly improving Reorient frequently to minimize delirium Check Phos Levels (3) Elevated troponin: Plan: Etiology of troponin elevation is unclear ? Secondary to rituximab use Patient denies chest pain Echo showed no new changes Appreciate cardiology input Continue home medications (4) History of ischemic cardiomyopathy: (5) CAD (coronary artery disease): Plan: H/O CAD History ischemic cardiomyopathy S/P pacer/defibrillator --ECHO: No significant change from prior study. Left ventricle is normal in size. Moderate concentric LVH. Apical septum and apical inferior wall is thinned and dyskinetic. EF 50 to 55%. Aortic valve sclerosis moderate, without significant aortic valvular stenosis. Moderate mitral annular calcification. Mitral valve leaflets are calcified with restricted posterior leaflet mobility. Severe mitral regurgitation with moderate to severe tricuspid regurgitation. Right ventricle systolic pressure is elevated 40 to 50 mmHg. 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 Received Rituxan first dose Plan for repeat Rituxan in 2 weeks Continue Bactrim prophylaxis, home diuretics Appreciate nephrology input Monitor renal function Needs follow-up with nephrology upon discharge Lisinopril on hold (8) Chronic heart failure with preserved ejection fraction: Plan: Volume overload status-chronic Monitor I's and O's, daily weight Torsemide resumed Plan to resume Aldactone tomorrow (9) Permanent atrial fibrillation: Plan: Chronically anticoagulated on Eliquis Continue Eliquis, metoprolol (10) DVT (deep venous thrombosis): Plan: Acute DVT both peroneal veins diagnosed at [facility] during recent admission per [facility] notes. Continue Eliquis 5.1 cm Abdominal aortic aneurysm Incidental finding noted on CT as outpatient Needs follow-up with vascular surgery as outpatient (11) HTN (hypertension): Plan: Lisinopril held due to rise in creatinine Continue metoprolol Monitor BP (12) Chronic anemia: Plan: Chronic thrombocytopenia H&H, platelets stable Monitor (13) Stroke: Plan: Continue Plavix, rosuvastatin DVT Px On Eliquis Code Status DNR/DNI Admission and Anticipated Discharge Date Admission Date: October 06, 2023 Subjective Patient is seen and examined at bedside Confusion improved, Oriented X2 during my encounter Denies any chest pain, dyspnea, dizziness, nausea, vomiting, abdominal pain Updated patient's son over the phone Had PT evaluation earlier today Review of Systems Review of Systems: All systems reviewed & are unremarkable except as noted in Subjective Physical Exam Physical Exam: Physical Exam: Vitals signs as noted above General Appearance:Moderately built and nourished, no apparent distress, elderly Head: normocephalic, Atraumatic Eyes: normal inspection, EOMI Neck: supple, Trachea midline Respiratory/Chest: Decreased breath sounds, CTA, No accessory muscle use Cardiovascular: S1, S2,+ murmur Abdomen/GI:Soft, Non tender, Bowel sounds present Extremities/Musculoskeletal:normal inspection, 2-3+ B/L LE edema Neurologic/Psych:AAOX2, grossly no focal neurological deficits Skin: normal color, warm Results & Data Results & Data Vital Signs (Past 12 Hours) Vital Signs Temp Pulse Resp BP Pulse Ox O2 Del Method 10/07/23 11:27 36.4 C L 77 18 114/73 98 Room Air 10/07/23 07:15 36.5 C 75 14 113/71 100 Room Air Laboratory Results Short CBC 10/07/23 Range/Units 06:56 WBC 7.10 (4.8-10.8) K/ul Hgb 8.8 L (14.0-18.0) g/dl Hct 26.9 L (42.0-52.0) % Plt Count 65 L (130-400) K/uL BMP 10/07/23 06:56 Sodium 142 Potassium 4.4 Chloride 116 H Carbon Dioxide 22 BUN 42 H Creatinine 1.98 H Glucose 85 Calcium 7.9 L Liver Function 10/07/23 Range/Units 06:56 Total Bilirubin 0.7 (0.2-1.0) mg/dl AST 44 H (13-39) U/L ALT 15 (7-52) U/L Alkaline Phosphatase 86 (34-104) U/L Albumin 2.7 L (3.4-5.0) gm/dl Urine 10/06/23 Range/Units Unknown Urine Color Ness Urine Appearance Clear (Clear) Urine pH 7.0 (4.5-7.5) Ur Specific [place] 1.023 (1.000-1.030) Urine Protein 4+ H (Negative) Urine Glucose (UA) Trace H (Negative)
[2023-10-07] MEDS: ROSUVASTATIN CALCIUM 10 MG TAB PO SCH (22:33)
[2023-10-08 07:27] LABS: Hematocrit (blood only) 27.7 % (42.0-52.0); Hemoglobin 9.2 g/dl (14.0-18.0); Mean Corpuscular Hemoglobin 35.8 pg (25.0-34.0); Mean Corpuscular Hgb Conc 33.2 g/dL (32.0-36.0); Mean Corpuscular Volume 107.8 fL (80.0-100.0); Mean Platelet Volume 11.1 fL (9.4-12.4); Platelet Count 68 K/uL (130-400); RDW Coefficient of Variation 13.2 % (11.5-14.5); RDW Standard Deviation 51.3 fL (36.4-46.3); Red Blood Count 2.57 M/uL (4.70-6.10); White Blood Count 6.87 K/ul (4.8-10.8)
[2023-10-08 08:13] LABS: Calcium 7.8 mg/dl (8.6-10.3); Magnesium 2.3 mg/dl (1.7-2.4); Potassium 4.4 mmol/L (3.5-5.1)
[2023-10-08 08:18] LABS: BUN Creatinine Ratio 18.1 (10-20); Creatinine Clr Calc Pharmacy 38.6 ml/min; Est GFR (Non-African American) 31.1 ml/min; Phosphorus 3.3 mg/dl (2.5-4.9)
[2023-10-08] MEDS ORDERED: SULFAMETHOXAZOLE/TRIMETHOPRIM DS 800/160MG TAB PO SCH (09:00)
[2023-10-08] MEDS: ACETAMINOPHEN 500 MG TAB PO SCH (09:29)
[2023-10-08] MEDS: FERROUS SULFATE 325 MG TAB PO SCH (09:29)
[2023-10-08] MEDS: APIXABAN 5 MG TABLET PO SCH (09:30)
[2023-10-08] MEDS: DOCUSATE SODIUM 100 MG CAP PO SCH (09:30)
[2023-10-08] MEDS: METOPROLOL SUCC 25MG EXT REL TAB PO SCH (09:31)
[2023-10-08] MEDS: TORSEMIDE 10 MG TAB PO SCH (09:31)
[2023-10-08] MEDS: LORATADINE 10 MG TAB PO SCH (09:32)
[2023-10-08] MEDS: CLOPIDOGREL BISULFATE 75 MG TAB PO SCH (09:32)
[2023-10-08] MEDS: FLUTICASONE PROPIONATE NA SPR 16 GM BTL NAE SCH (09:32)
[2023-10-08] MEDS: CHOLECALCIFEROL 1,000 UNITS 25 MCG TAB PO SCH (09:33)
--- NOTE | 2023-10-08 10:50 | Cardiology Progress Note ---
Date of Service October 08, 2023 Assessment & Plan (1) Delirium: (2) Elevated troponin: (3) Permanent atrial fibrillation: (4) Renal failure (ARF), acute on chronic: (5) Primary membranous nephropathy with nephrotic syndrome: Plan Complex 83-year-old male with known ischemic heart disease prior ischemic cardiomyopathy, membranous glomerulonephritis with nephrotic syndrome Patient presents now with acute mental status changes and delirium confusion. Mild increase in lower extremity edema as well as worsening renal function Suspect multifactorial etiology question ischemia, medications, worsening renal function. Cannot rule out infection Recently treated with rituximab Given rising troponin acute coronary syndrome cannot be excluded however patient completely asymptomatic currently. Anticoagulated with Eliquis would not heparinize Continue prehospital medication Discussed conservative management with son who is agreeable. cardiology will follow up Echocardiogram this admission 10/07/2023 Patient presented with acute delirium, confusional state now improving. Chronic lower extremity edema though without pulmonary edema Echocardiogram with prior thin apical infarct but otherwise normal LV contractility similar to prior echocardiograms. Severe mitral insufficiency present Etiology of acute troponin elevation uncertain we will continue conservative therapy. Patient did not present with acute coronary syndrome but delirium, question medication induced. Recent corticosteroids and rituximab Diuretics recently changed from furosemide to torsemide with spironolactone Will resume oral diuretic reduced dose torsemide 20 mg/day with compression stockings lower extremities. Restart spironolactone in a.m. Chronically anticoagulated with Eliquis 10/08/2023 Clinically stable delirium improved No signs of acute pulmonary edema or volume overload other than mild lower extremity edema which is improving. Significant elevation in troponin will repeat in a.m. suspect secondary to multiple interventions as above Spironolactone to be resumed today continue torsemide at current dosing 20 mg/day possible increase on discharge Admission and Anticipated Discharge Date Admission Date: October 06, 2023 Subjective Patient seen and examined, chart, medications, telemetry reviewed More oriented this morning no acute complaints. Specifically denies chest pain shortness of breath dizziness or lightheadedness. Has been up in the room Slightly less lower extremity edema Telemetry with a chronic atrial fibrillation and ventricular paced rhythm no significant arrhythmias Review of Systems Review of Systems: All systems reviewed & are unremarkable except as noted in Subjective Physical Exam Constitutional: well developed and well nourished; no acute distress Eyes: PERRL, conjunctivae normal, anicteric sclerae Neck: trachea midline, no thyromegaly Respiratory: Auscultation: + diminished lung sounds; no rales and no wheezes Cardiovascular: Rate/Rhythm: regular rhythm (Paced) Vessels: no JVD Extremities: + edema (2-3+ lower extremity edema with compression stockings in place) Gastrointestinal (Abdomen): normal bowel sounds, soft, nontender, no hepatosplenomegaly Skin: no rashes, warm and dry Results & Data Vital Signs (Past 12 Hours) Vital Signs Temp Pulse Resp BP Pulse Ox O2 Del Method 10/08/23 08:00 36.6 C 77 16 134/66 97 Room Air 10/08/23 03:02 36.7 C 84 18 129/84 98 Room Air Laboratory Results Laboratory Results - last 24 hr 10/08/23 10/08/23 06:57 07:38 WBC 6.87 RBC 2.57 L Hgb 9.2 L Hct 27.7 L MCV 107.8 H MCH 35.8 H MCHC 33.2 RDW Std Deviation 51.3 H RDW Coeff of Tucker 13.2 Plt Count 68 L MPV 11.1 Sodium 141 Potassium 4.4 Chloride 115 H Carbon Dioxide 22 Anion Gap 4 BUN 35 H Creatinine 1.93 H Est Cr Clr Drug Dosing 38.6 Est GFR ( Amer) 36.0 Est GFR (Non-Af Amer) 31.1 BUN/Creatinine Ratio 18.1 Glucose 82 POC Glucose 75 Calcium 7.8 L Phosphorus 3.3 Magnesium 2.3
--- NOTE | 2023-10-08 11:15 | Nephrology Progress Note ---
Date of Service October 08, 2023 Assessment & Plan Admission and Anticipated Discharge Date Admission Date: October 06, 2023 Subjective Assessment & Plan (1) Primary membranous nephropathy with nephrotic syndrome: Newly diagnosed with PLAR 2 antibody positive. Creatinine 2.1 and 13 g proteinuria on most recent testing. Has been started with Rituxan and has received first dose. Second dose to be received in 2-week. Continue all the current medications including Bactrim prophylaxis as well as all the diuretics he was getting at home. Current creatinine of 2 is same as his discharge creatinine he Can be discharged. He has appt with Nephrology tomorrow--very critical to attend that for continuation of rituxan infusion for MGN. Continue all meds same as prior to discharge (2) Metabolic encephalopathy: Not exactly clear. But at this time he seems fairly normal. Defer to primary S----feels fine. wants to be discharged. mental status seems normal. Physical examination --- Awake alert oriented times x 3. He was able to tell most of his recent health problem with good accuracy. No respiratory distress. Mucous membrane is moist neck is supple no JVD Chest bilateral clear to auscultation CVS S1-S2 regular soft systolic murmur 1+ edema noted Abdomen is soft nontender Extremities shows 1+ edema Skin did not show any rash. Results & Data Vital Signs (Past 12 Hours) Vital Signs Temp Pulse Resp BP Pulse Ox O2 Del Method 10/08/23 08:00 36.6 C 77 16 134/66 97 Room Air 10/08/23 03:02 36.7 C 84 18 129/84 98 Room Air
[2023-10-08] MEDS ORDERED: SPIRONOLACTONE 12.5 MG TAB PO SCH (11:30)
--- NOTE | 2023-10-08 12:19 | Hospitalist Progress Note ---
Date of Service October 08, 2023 Assessment & Plan (1) Metabolic encephalopathy: (2) Dementia: Plan: Patient is 83 y/o M with PMH CAD, history of dilated ischemic cardiomyopathy with now improved and preserved EF, biventricular pacemaker/defibrillator implantation, mitral insufficiency, permanent atrial fibrillation anticoagulated on Eliquis, history of CVA and nocturnal hypoxia presented to ER from [facility] with c/o increased confusion. Altered mental status In setting of dementia Likely delirium DD: Rituximab/Steroid use, Uremia No source of infection noted currently CT head:There is no hemorrhage, mass effect, or evidence of acute territorial ischemia by CT criteria. BioFire negative Blood cultures negative to date Recent TSH, B12 levels normal UA not suggestive of UTI Reorient frequently to minimize delirium Mental status seem to be back to baseline (3) Elevated troponin: Plan: Etiology of troponin elevation is unclear ? Secondary to rituximab use Patient denies chest pain Echo showed no new changes Appreciate cardiology input Continue home medications (4) History of ischemic cardiomyopathy: (5) CAD (coronary artery disease): Plan: H/O CAD History ischemic cardiomyopathy S/P pacer/defibrillator --ECHO: No significant change from prior study. Left ventricle is normal in size. Moderate concentric LVH. Apical septum and apical inferior wall is thinned and dyskinetic. EF 50 to 55%. Aortic valve sclerosis moderate, without significant aortic valvular stenosis. Moderate mitral annular calcification. Mitral valve leaflets are calcified with restricted posterior leaflet mobility. Severe mitral regurgitation with moderate to severe tricuspid regurgitation. Right ventricle systolic pressure is elevated 40 to 50 mmHg. 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 Received Rituxan first dose Plan for repeat Rituxan in 2 weeks Continue Bactrim prophylaxis, home diuretics Appreciate nephrology input Monitor renal function Has follow-up appointment with nephrology on 10/09/2023 to discuss further treatment plan with Rituxan (8) Chronic heart failure with preserved ejection fraction: Plan: Volume overload status-chronic Monitor I's and O's, daily weight Torsemide and Aldactone resumed (9) Permanent atrial fibrillation: Plan: Chronically anticoagulated on Eliquis Continue Eliquis, metoprolol (10) DVT (deep venous thrombosis): Plan: Acute DVT both peroneal veins diagnosed at [facility] [place] during recent admission per [facility] notes. Continue Eliquis 5.1 cm Abdominal aortic aneurysm Incidental finding noted on CT as outpatient Needs follow-up with vascular surgery as outpatient (11) HTN (hypertension): Plan: Continue metoprolol Resume lisinopril as recommended by nephrology Monitor BP (12) Chronic anemia: Plan: Chronic thrombocytopenia H&H, platelets stable Monitor (13) Stroke: Plan: Continue Plavix, rosuvastatin DVT Px On Eliquis Code Status DNR/DNI Disposition Personal care facility Admission and Anticipated Discharge Date Admission Date: October 06, 2023 Subjective Patient is seen and examined at bedside Mental status back to baseline Updated patient's son over the phone Leg edema much improved Patient offers no complaints Discussed with nephrology today Denies any chest pain, dyspnea, dizziness, nausea, vomiting, abdominal pain Plan to discharge to personal care facility today Review of Systems Review of Systems: All systems reviewed & are unremarkable except as noted in Subjective Physical Exam Physical Exam: Physical Exam: Vitals signs as noted above General Appearance:Moderately built and nourished, no apparent distress, elderly Head: normocephalic, Atraumatic Eyes: normal inspection, EOMI Neck: supple, Trachea midline Respiratory/Chest: Decreased breath sounds, CTA, No accessory muscle use Cardiovascular: S1, S2,+ murmur Abdomen/GI:Soft, Non tender, Bowel sounds present Extremities/Musculoskeletal:normal inspection, 1-2+ B/L LE edema Neurologic/Psych:AAOX2, grossly no focal neurological deficits Skin: normal color, warm Results & Data Results & Data Vital Signs (Past 12 Hours) Vital Signs Temp Pulse Pulse Resp BP Pulse Ox O2 Del Method 10/08/23 12:00 36.8 C 82 18 144/67 H 97 Room Air 10/08/23 08:00 75 10/08/23 08:00 36.6 C 77 16 134/66 97 Room Air 10/08/23 03:02 36.7 C 84 18 129/84 98 Room Air Laboratory Results Short CBC 10/08/23 Range/Units 06:57 WBC 6.87 (4.8-10.8) K/ul Hgb 9.2 L (14.0-18.0) g/dl Hct 27.7 L (42.0-52.0) % Plt Count 68 L (130-400) K/uL [facility] 10/08/23 06:57 Sodium 141 Potassium 4.4 Chloride 115 H Carbon Dioxide 22 BUN 35 H Creatinine 1.93 H Glucose 82 Calcium 7.8 L
--- NOTE | 2023-10-08 12:37 | Discharge Summary ---
Date of Service October 08, 2023 Admission HPI Per Admitting Provider Patient is 83 y/o M with PMH CAD, history of dilated ischemic cardiomyopathy with now improved and preserved EF, biventricular pacemaker/defibrillator implantation, mitral insufficiency, permanent atrial fibrillation anticoagulated on Eliquis, history of CVA and nocturnal hypoxia presented to ER from [facility] with c/o increased confusion. Limited history obtained from patient secondary to mental status. History obtained from patient's son as well and inpatient and outpatient chart review. Patient with recent admissions for decompensated heart failure. Most recent hospitalization [facility] 09/23/23-09/25/23 for increased confusion, hypotension and transferred to [facility] for kidney biopsy for concern of nephropathy. His Plavix and Eliquis had been on hold for kidney biopsy and bone marrow biopsy. Kidney biopsy consistent with membranous glomerulopathy and his kidney function remained relatively stable. He was started on rituximab. Started on Bactrim three days week for prophylaxis. He was also noted to have acute DVT both peroneal veins and was started back on Eliquis. Was discharged from [facility] on 10/02/23. Patient's son states patient has had progressive decline with increased confusion over the past several weeks however past 2 days with increased confusion. He was noted to be naked at nursing facility. Also had BM on floor. He was noted to be crawling around on floor as well. Son states patient has had several falls Denies any known fever, vomiting, diarrhea. Patient only complaint is "legs more swollen" than usual. Patient currently denies any GARCIA, dizziness, neck pain, CP, SOB, palpitations, cough, sore throat, rhinorrhea, abdominal pain, paresthesias, weakness, dysuria, hematuria. Admission Exam Per Admitting Provider General: no acute distress, WDWN Head: normocephalic, atraumatic Eyes: PERRL, EOM's intact, conjunctiva non-injected, anicteric ENT: normal inspection external ears, nose, mucous membranes mildly dry Neck: supple, trachea midline, non-tender Lungs: clear, no respiratory distress, no wheezing/rhonchi/rales CV: RRR, + murmur, 2+ pretibial edema Abd: normal BS, soft, non-tender Ext: no cyanosis, no calf tenderness Neuro: A&O x 3, no focal deficits noted, normal affect Skin: warm, dry Principal Diagnosis Acute Metabolic encephalopathy Elevated troponin Abdominal aortic aneurysm Discharge Data Allergies Allergy/AdvReac Type Severity Reaction Status Date / Time No Known Allergies Allergy Unverified 10/06/23 15:42 Consultations 10/06/23 14:31 ED Decision to Admit Stat 10/06/23 14:43 Consult Cardiology Routine 10/06/23 15:40 Consult Nephrology Routine Procedures Performed Short CBC 10/08/23 Range/Units 06:57 WBC 6.87 (4.8-10.8) K/ul Hgb 9.2 L (14.0-18.0) g/dl Hct 27.7 L (42.0-52.0) % Plt Count 68 L (130-400) K/uL BMP 10/08/23 06:57 Sodium 141 Potassium 4.4 Chloride 115 H Carbon Dioxide 22 BUN 35 H Creatinine 1.93 H Glucose 82 Calcium 7.8 L Ordered Studies 10/06/23 12:07 CT head/brain wo con Stat Hospital Course (1) Metabolic encephalopathy: (2) Dementia: Patient is 83 y/o M with PMH CAD, history of dilated ischemic cardiomyopathy with now improved and preserved EF, biventricular pacemaker/defibrillator implantation, mitral insufficiency, permanent atrial fibrillation anticoagulated on Eliquis, history of CVA and nocturnal hypoxia presented to ER from [facility] with c/o increased confusion. Altered mental status In setting of dementia Likely delirium DD: Rituximab/Steroid use, Uremia No source of infection noted currently CT head:There is no hemorrhage, mass effect, or evidence of acute territorial ischemia by CT criteria. BioFire negative Blood cultures negative to date Recent TSH, B12 levels normal UA not suggestive of UTI Reorient frequently to minimize delirium Mental status seem to be back to baseline (3) Elevated troponin: Etiology of troponin elevation is unclear Likely secondary to rituximab use Patient denies chest pain Echo showed no new changes Appreciate cardiology input Continue home medications (4) History of ischemic cardiomyopathy: (5) CAD (coronary artery disease): H/O CAD History ischemic cardiomyopathy S/P pacer/defibrillator --ECHO: No significant change from prior study. Left ventricle is normal in size. Moderate concentric LVH. Apical septum and apical inferior wall is thinned and dyskinetic. EF 50 to 55%. Aortic valve sclerosis moderate, without significant aortic valvular stenosis. Moderate mitral annular calcification. Mitral valve leaflets are calcified with restricted posterior leaflet mobility. Severe mitral regurgitation with moderate to severe tricuspid regurgitation. Right ventricle systolic pressure is elevated 40 to 50 mmHg. 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 Received Rituxan first dose Plan for repeat Rituxan in 2 weeks Continue Bactrim prophylaxis, home diuretics Appreciate nephrology input Monitor renal function Has follow-up appointment with nephrology on 10/09/2023 to discuss further treatment plan with Rituxan (8) Chronic heart failure with preserved ejection fraction: Volume overload status-chronic Monitor I's and O's, daily weight Torsemide and Aldactone resumed (9) Permanent atrial fibrillation: Chronically anticoagulated on Eliquis Continue Eliquis, metoprolol (10) DVT (deep venous thrombosis): Acute DVT both peroneal veins diagnosed at [facility] during recent admission per [facility] notes. Continue Eliquis 5.1 cm Abdominal aortic aneurysm Incidental finding noted on CT as outpatient Needs follow-up with vascular surgery as outpatient (11) HTN (hypertension): Continue metoprolol Resume lisinopril as recommended by nephrology Monitor BP (12) Chronic anemia: Chronic thrombocytopenia H&H, platelets stable Monitor (13) Stroke: Continue Plavix, rosuvastatin DVT Px On Eliquis Code Status DNR/DNI Disposition Personal care facility Total Time Total Time Spent Total Time Spent (In Minutes): 58 minutes Discharge Plan Discharge Items Patient Disposition: Personal Custodial Reason For Visit: ELEVATED TROPONIN Discharge Diagnosis: Acute Metabolic encephalopathy Elevated troponin Abdominal aortic aneurysm Activity: Per Instructions section Exercise/Sports: Wait until after follow-up appointment Non-emergency contact: Primary Care Provider and Computer Systems Technology Instructor Call non-emergency contact if: you have any medication questions, your symptoms worsen, your pain is concerning for you and you have a fever Follow-up/Referrals: Gisele Daugherty MD, PhD [Physician] - (Date & Time 10/09/2023 1:00 PM Provider Gisele Daugherty MD Department [facility] DO [Primary Care Provider] - (Date & Time 10/15/2023 1:40 PM Provider Payam Claire DO [facility] ) Diet: Heart Healthy Addtl Attending Provider Instructions: Follow-up with your primary care physician Dr. Claire on 10/15/2023 1:40 PM Follow-up with your map clerk Dr. Romero on 10/09/2023 1:00 PM Follow-up with your vascular surgeon for further evaluation of abdominal aortic aneurysm as outpatient -- Blood cultures are pending at the time of discharge. Follow-up with your physician for results. Do not take group of medications belonging to NSAIDs group -can cause worsening of your kidney function. List Of these medications includes but not limited to: Diclofenac Ibuprofen, Motrin, Advil Toradol,ketorolac Naproxen, Aleve, Naprosyn You can take Tylenol as needed for pain or fever When buying [id number] pain medications please consult with pharmacy if you are not sure regarding ingredients, as a lot of the pain medications have combination of NSAIDs and Tylenol. Seek immediate medical attention if your symptoms reoccur or worsen Please take all medications as instructed on discharge list below. Please call if you have any questions or problems. You can reach a [facility] hospitalist on duty at [facility] 24 hours a day by calling [phone] Pending Studies at Discharge: Yes Studies:: Blood Cultures Stand-Alone Forms: My [facility], Smoking Cessation Skilled Items Patient informed of condition?: Yes DNR: Yes Discharge Level of Care: Other Communicable Disease: No Discharge Prognosis: Stable Lines: None Urinary Catheter: No Medications and DC Order Prescriptions: Continued acetaminophen [Tylenol Extra Strength] 500 mg Tablet 1,000 mg PO BID ferrous sulfate [iron] 325 mg (65 mg iron) Tablet 325 mg PO BID docusate sodium [Colace] 100 mg Capsule 100 mg PO DAILY loratadine 10 mg Tablet 10 mg PO DAILY clopidogrel 75 mg tablet 75 mg PO DAILY fluoxetine 10 mg capsule 10 mg PO DAILY lisinopril 5 mg tablet 5 mg PO DAILY fluticasone propionate 50 mcg/actuation spray,suspension 1 spray INTRANASAL BID Eliquis 5 mg tablet 5 mg PO BID nitroglycerin 0.4 mg tablet, sublingual 0.4 mg sublingual UD PRN (Reason: Chest Pain) Rx Instructions: 1 tab under tongue every 5 min for 3 doses as needed for chest pain,if no relief call ketoconazole 2 % cream 1 applic TOPICAL BID PRN (Reason: flares) Rx Instructions: apply to behind ears as needed for seborrheic dernatitis flares metoprolol succinate 25 mg tablet extended release 24 hr 25 mg PO BID rosuvastatin 10 mg tablet 10 mg PO HS cholecalciferol (vitamin D3) [Vitamin D3] 50 mcg (2,000 unit) Tablet 50 mcg PO DAILY torsemide 20 mg Tablet 40 mg PO QAM Qty: 30 1RF spironolactone 25 mg Tablet 12.5 mg PO DAILY Qty: 30 1RF potassium chloride 20 mEq Tablet,Er Particles/Crystals 20 meq PO BID Qty: 60 0RF acetaminophen 325 mg Tablet 650 mg PO Q4 MDD 3g PRN (Reason: Fever Or Pain) melatonin 3 mg Tablet 3 mg PO HS PRN (Reason: Insomnia) furosemide 20 mg tablet 20 mg PO DAILY PRN (Reason: wt gain>3lbs in 2 days or edema +2) ketoconazole 2 % Shampoo 1 ea TOPICAL [id number] Rx Instructions: apply topically to scalp and behind ears 2-3 times per week. leave on 3-5 minutes before rinsing dextromethorphan-guaifenesin [Diabetic Tussin] 10-100 mg/5 mL Liquid 10 ml PO Q8 PRN (Reason: Cough) Rx Instructions: 200 mg every 8 hours as needed for cough for 5 days sulfamethoxazole-trimethoprim 800-160 mg tablet 1 tab PO MOWEFR Discontinued naproxen sodium 220 mg Tablet 220 mg PO Q4 PRN (Reason: Headache) No Action guaifenesin 400 mg Tablet 400 mg PO Q6 PRN (Reason: congestion/cough) Discharge Orders: Discharge Order (Routine); Ordered 10/08/23 Ordered By: Remigio Rivers Admission Data Admit Date/Time: 10/06/23 15:34 Attending Provider: Remigio Rivers Admit Provider: Isabelle Pineda Primary Care Provider: Payam Claire Other Providers: Isabelle Pineda; Deondre Cat; Jethro Smith
--- NOTE | 2023-10-08 16:07 | Electrocardiogram Report ---
Test Reason : Blood Pressure : / mmHG Vent. Rate : 083 BPM Atrial Rate : 077 BPM P-R Int : 000 ms QRS Dur : 168 ms QT Int : 490 ms P-R-T Axes : 000 -39 084 degrees QTc Int : 575 ms Ventricular-paced rhythm with occasional Premature ventricular complexes Biventricular pacemaker detected Abnormal ECG When compared with ECG of 07-OCT-2023 05:16, Premature ventricular complexes are now Present Vent. rate has increased BY 5 BPM Confirmed by Clinton Jaffe ([id number]) on 10/08/2023 4:07:24 PM Referred By: Zaire Alcocer Confirmed By:Clinton Jaffe
--- OUTSIDE RECORDS SUMMARY | 2023-10-11 02:53 | External Medical Summary | Summary of Care ---
Author Name Unknown Organization [facility] Address [address] [place] [address] Phone [phone] Care Team Providers Care Dye Range Tender Name Role Phone Payam Claire DO Primary Care Provider [phone] Reason for Visit * Reason Onset Date Comments Encounter Created in Error 09/25/2023 Encounter Details Date Type Department Care Team (Late st Contact Info) Description 09/25/2023 Telephone Nephrology, [address] [address] Cameron Martinez MD [address] [place] [id number] Encounter Created in Error Allergies No known active allergiesdocumented as of this encounter (statuses as of 10/06/2023) Medications Medication Sig Dispensed Refills Start Date End Date Status Nitroglycerin 0.4 MG Sublingual Tablet SublingualIndications :Coronary artery disease involving sioux coronary artery of sioux heart without angina pectoris Place 1 Tablet under the tongue every 5 minutes as needed for Pain, Chest. 0 Active Lisinopril 5 MG Oral Tablet (PRINIVIL)Indications :Coronary artery disease involving sioux coronary artery of sioux heart without angina pectoris Take 1 Tablet by mouth in the morning. 0 Active Clopidogrel Bisulfate 75 MG Oral Tablet (pLAVix)Indications:C oronary artery disease involving sioux coronary artery of sioux heart without angina pectoris Take 1 Tablet by mouth in the morning. 0 Active Vitamin D (Cholecalciferol) 50 MCG (1999) Oral Capsule Take by mouth. 0 Active Diclofenac Sodium 1 % Transdermal Gel Place topically on the skin 4 times a day. Apply to to back as needed 0 Active Rosuvastatin Calcium 10 MG Oral Tablet (Crestor) Take 1 Tablet by mouth in the morning. Take one daily at bedtime . 0 Active Fluticasone Propionate 50 MCG/ACT Nasal Suspension Administer 1 Greybull into nostril in the morning. 0 Active Spironolactone 100 MG Oral Tablet (Aldactone) Take 1 Tablet by mouth in the morning. 0 Active Metoprolol Succinate ER 25 MG Oral Tablet Extended Release 24 Hour (Toprol XL)Indications:Swift ry artery disease involving sioux coronary artery of sioux heart without angina pectoris Take 1 Tab by mouth 2 times a day. 180 Tab 3 09/04/2021 Active FLUoxetine HCl 10 MG Oral Tablet (PROzac) Take 1 Tablet by mouth in the morning. 0 Active Ketoconazole 2 % External CreamIndications:Sebo rrheic dermatitis of scalp Apply behind ears twice daily as needed for flares 30 g 0 07/02/2022 Active Ketoconazole 2 % External Shampoo (Nizoral)Indications: Seborrheic dermatitis of scalp Apply to scalp and behind ears 2-3 times per week; leave on 3-5 min before rinsing 120 mL 1 07/08/2022 Active Ferrous Sulfate 325 (65 Fe) MG Oral Tablet Take 1 Tablet by mouth in the morning and 1 Tablet at noon and 1 Tablet in the evening. Take with meals. Take twice per day with meals . 0 Active Acetaminophen 500 MG Oral Tablet Take 1 Tablet by mouth in the morning and 1 Tablet in the evening. 0 Active Docusate Sodium 100 MG Oral Capsule (Colace) Take 1 Capsule by mouth daily. 0 Active Loratadine 10 MG Oral Capsule Take 1 Capsule by mouth in the morning. 0 Active Melatonin 3 MG Oral Capsule Take 1 Capsule by mouth at bedtime as needed. 0 Active Torsemide 40 MG Oral Tablet Take 40 mg by mouth. 0 Active documented as of this encounter (statuses as of 10/06/2023) Active Problems Problem Noted Date Diagnosed Date Monoclonal gammopathy 09/25/2023 Acute deep vein thrombosis (DVT) of both peronea l veins 09/25/2023 Nephrotic syndrome 09/25/2023 Stage 3b chronic kidney disease 09/25/2023 Nephrotic range proteinuria 09/25/2023 Dyslipidemia 01/13/2023 History of nonmelanoma skin cancer 12/22/2022 Overview: Hx of BCC R helix s/p Mohs 2021,BCC L shoulder 2021, BCC R posterior neck 2021,NMSC lower lip years ago (no records) Chronic kidney disease, stage 3a 10/14/2022 Overview: Per CKD protocol Ischemic cardiomyopathy 01/31/2021 HTN, goal below 130/80 01/31/2021 History of stroke Coronary artery disease invo lving sioux coronary artery of sioux heart without angina pectoris Pacemaker AICD (automatic cardioverter/defibrillator) pres ent Permanent atrial fibrillation documented as of this encounter (statuses as of 10/06/2023) Resolved Problems Problem Noted Date Diagnosed Date Resolved Date Dyslipidemia, goal LDL below 70 01/31/2021 01/13/2023 documented as of this encounter (statuses as of 10/06/2023) Immunizations Name Administration Dates Next Due COVID-19 mRNA, LNP-s, No Pre serve, 2-Dose Series (Moderna) 02/10/2021,01/02/2021 Pneumococcal Conjugate Vacc, 13 Valent (Prevnar) 10/01/2019 Pneumococcal Polysaccharide PPV23 (Pneumovax) 08/13/2013 Seasonal Influenza Virus Vac cine, Unspecified Formulation 08/20/2023,09/07/2020,10/01/2019,09/29,09/17/2017 Seasonal Influenza, Trivalen t, Adjuvanted, 65+ yrs 09/19/2022 TDAP (age 10 and older)(Boostrix) 10/10/2020 documented as of this encounter Social History Tobacco Use Types Packs/Day Years Used Date Smoking Tobacco: Never Smokeless Tobacco: Never Alcohol Use Standard Drinks/Week Comments Never 0 (1 standard drink = 0.6 oz pur e alcohol) AUDIT-C Answer Date Recorded Q1: How often do you have a drink containing alc ohol? Never 10/10/2020 Average Number of Drinks Not on file 020 Frequency of Binge Drinking Not on file 10/01 PHQ-2 Answer Date Recorded PHQ Adult Total Score 0 04/11/2021 Hunger Vital Sign Answer Date Recorded Within the past 12 months, y ou worried that your food would run out before you got the money to buy more. Never true 04/11/20 21 Within the past 12 months, t he food you bought just didn't last and you didn't have money to get more. Never true 04/11/2021 Sex and Gender Information Value Date Recorded Sex Assigned at Not on file Gender Identity Not on file Sexual Orientation Not on file Job Start Date Occupation Industry Not on file Not on file Not on file documented as of this encounter Functional Status Functional Status Response Date of Assess ment Are you deaf or do you have serious difficulty h earing? No 09/25/2023 Are you blind or do you have serious difficulty seeing, even when wearing glasses? No 09/25/2023 Do you have serious difficul ty walking or climbing stairs? (5 years old or older) No 09/25/2023 Do you have difficulty dress ing or bathing? (5 years old or older) No 09/25/2023 Because of a physical, menta l, or emotional condition, do you have difficulty doing errands alone such as visiting a doctor s office or shopping? (15 years old or older) Yes 09/25/20 23 Cognitive Status Response Date of Assessm ent Because of a physical, menta l, or emotional condition, do you have serious difficulty concentrating, remembering, or making decisions? (5 years old or older No 09/25/2023 documented as of this encounter Plan of Treatment Upcoming Encounters Date Type Department Care Team (Late st Contact Info) Description 10/09/2023 1:00 PM EST Office Visit Nephrology [address] [place] [address] Gisele Daugherty MD [address] [place] [address] [place] [address] 10/28/2023 10:30 AM EST Appointment Radiology, [address] [address] 10/28/2023 11:30 AM EST Procedure Only Urology, [address] [id number] Garrick Dorman MD [address] [place] [address] 11/03/2023 11:30 AM EST Office Visit Hematology/Oncology [facility] [address] [place] [address] Roberto Camarena MD [address] [place] [place] [address] [address] 11/18/2023 2:00 PM EST Cardiac Studies [facility]iology, [facility] [address] [facility] [address] [place] [address] [facility] [address] 11/21/2023 1:50 PM EST Office Visit Dermatology [facility] [place] [address] [place] [place] [address] Lavonne Herzog PA-C [address] [facility] [place] [address] 02/24/2024 4:20 PM EDT Office Visit Neurology [facility] [place] [address] [place] [address] Chicho Steward, DO [address] [place] [place] [address] [address] 04/16/2024 1:00 PM EDT Office Visit Family Practice [facility] [place] [address] [place] [address] [address] Payam Claire, DO [address] [place] [address] [address] Health Maintenance Due Date Last Done Comments Albumin/Creatinine Ratio 1958 Zoster Vaccines (2 of 3) 11/08/2013 09/13/2013 Depression Screening 04/11/2022 04/11/2021 COVID-19 Vaccine (3 - 2022- season) 2023 02/10/2021, 01/02/2021 GFR 04/01/2024 10/02/2023, 12/2022, 09/30/2023, Additional history exists CKD HGB USE SMARTSET 43231 10/02/202410/02, 10/01/2023, 09/30/2023, Additional history exists CKD PHOS USE SMARTSET 75618 10/02/202401/2023, 10/01/2023, 09/30/2023, Additional history exists DTaP,Tdap,and Td Vaccines (2 - Td or Tdap) 10/10/2030 10/10/2020 Pneumococcal Vaccine: 65+ Years Completed 10/01/2019, 08/13/2013 Influenza Vaccine (FLU shot) Completed , 09/19/2022, 09/07/2020, Additional history exists GARDASIL-HPV IMMUNIZATION SERIES Aged Out No longer eligible based on patient's age to complete this topic Hepatitis B Aged Out No longer eligi ble based on patient's age to complete this topic MENINGOCOCCAL (MENACTRA/MENVEO) Aged Out No longer eligible based on patient's age to complete this topic documented as of this encounter Medical Devices Not on filedocumented as of this encounter Advance Directives Documents on File Type Date Recorded Patient Tipple Tender Expl anation Power of Ornamental Brick Installer 11/29/2019 POWER OF A TTORNEY Latest Code Status on File Code Status Date Activated Date Inactivated Comments No Code 09/25/2023 12:41 PM 10/02/2023 11:35 PM Th is order reflects the patients wishes and were consensually agreed upon. Question Answer Comments Discussion of Advance Directives occurred with: Patient Code Status History Code Status Date Activated Date Inactivated Comments Full Code 09/25/2023 10:59 AM 09/25/2023 12:41 PM T his order reflects the patients wishes and were consensually agreed upon. Question Answer Comments Discussion of Advance Directives occurred with: Patient Healthcare Agents on File Name Relationship Healthcare Agent [facility] p Communication Luis Troy Adult Child Health Care Age nt (per Health Care Power of Ornamental Brick Installer document) Care Teams Dye Range Tender Relationship Specialty Start Date End Date Payam Claire DO [address] [place] [address] PCP - General Family Medicine 09/08/23 documented as of this encounter
--- OUTSIDE RECORDS SUMMARY | 2023-10-11 02:54 | External Medical Summary | Summary of Care ---
Author Name Unknown Organization [facility] Address [address] [place] [address] Phone [phone] Care Team Providers Care Construction Site Crossing Guard Name Role Phone Syd Clairee Aline STEINBERG Primary Care Provider [phone] Reason for Visit * Auth/Cert Specialty Diagnoses / Procedures Referred By Aleyda t Referred To Contact Diagnoses Nephrotic syndrome nephrotic syndrome, monoclonal gammopathy of renal significance, kidney biopsy and bone marrow biopsy Referral ID Status Reason Start Date Expiration Date Visits Re quested Visits Authorized [id number] Encounter Details Date Type Department Care Team (Latest Contact Info) Description 09/25/2023 10:21 AM EDT - 10/02/2023 7:35 PM EDT [id number] [address], [place] [id number] Glen Myers MD [address] [facility] [place] [address] Bo Allen MD [address] [facility] [place] [address] Slava Herring MD [address] [facility] [place] [address] Dimitry Garcia DO [address] [facility] Hospitalist [place], [place] [id number] Discharge Disposition: Home - Self Care Allergies No known active allergiesdocumented as of this encounter (statuses as of 10/03/2023) Medications Medication Sig Dispensed Refills Start Date End Date Status Nitroglycerin 0.4 MG Sublingual Tablet SublingualIndica tions:Coronary artery disease involving seldovia coronary artery of [place]ia heart without angina pectoris Place 1 Tablet under the tongue every 5 minutes as needed for Pain, Chest. 0 Active Lisinopril 5 MG Oral Tablet (PRINIVIL)Indica tions:Coronary artery disease involving seldovia coronary artery of [place] heart without angina pectoris Take 1 Tablet by mouth in the morning. 0 Active Clopidogrel Bisulfate 75 MG Oral Tablet (pLAVix)Indicati ons:Coronary artery disease involving seldovia coronary artery of seld[place]ia heart without angina pectoris Take 1 Tablet by mouth in the morning. 0 Active Vitamin D (Cholecalciferol ) 50 MCG (2000 UT) Oral Capsule Take by mouth. 0 Acti ve Diclofenac Sodium 1 % Transdermal Gel Place topically on the skin 4 times a day. Apply to to back as needed 0 Active Rosuvastatin Calcium 10 MG Oral Tablet (Crestor) Take 1 Tablet by mouth in the morning. Take one daily at bedtime . 0 Active Fluticasone Propionate 50 MCG/ACT Nasal Suspension Administer 1 [place] into nostril in the morning. 0 Active Spironolactone 100 MG Oral Tablet (Aldactone) Take 1 Tablet by mouth in the morning. 0 Active Metoprolol Succinate ER 25 MG Oral Tablet Extended Release 24 Hour (Toprol XL)Indications:C oronary artery disease involving seldovia coronary artery of s[place]ia heart without angina pectoris Take 1 Tab by mouth 2 times a day. 180 Tab 3 1 Active FLUoxetine HCl 10 MG Oral Tablet (PROzac) Take 1 Tablet by mouth in the morning. 0 Active Ketoconazole 2 % External CreamIndications :Seborrheic dermatitis of scalp Apply behind ears twice daily as needed for flares 30 g 0 2 Active Ketoconazole 2 % External Shampoo (Nizoral)Indicat ions:Seborrheic dermatitis of scalp Apply to scalp and behind ears 2-3 times per week; leave on 3-5 min before rinsing 120 mL 1 2 Active Ferrous Sulfate 325 (65 Fe) MG [...] Take 40 mg by mouth. 0 Active Sulfamethoxazole -Trimethoprim 800-160 MG Oral Tablet (Bactrim DS) Take 1 Tablet by mouth once a day on Friday, Friday, and Friday only. 60 Tablet 0 3 Active Apixaban 5 MG Oral Tablet (Eliquis)Indicat ions:Paroxysmal atrial fibrillation (HCC) Please take 2 tablets of apixaban twice a day till October 03 2023 evening and starting October 04 2023 take 1 tablet twice a day 0 3 Active Apixaban 5 MG Oral TabletIndication s:Paroxysmal atrial fibrillation (HCC) Take 1 Tablet by mouth in the morning and 1 Tablet before bedtime. 0 10/02/20 23 Discontinued(Ref ill) Cephalexin 500 MG Oral Capsule (Keflex) Take 1 Capsule by mouth in the morning and 1 Capsule before bedtime. 0 3 10/02/20 23 Discontinued Furosemide 40 MG Oral Tablet (Lasix)Indicatio ns:Acute on chronic systolic (congestive) heart failure (HCC) Furosemide 60 mg oral daily alteranting 80 mg every other day 120 Tablet 3 3 10/02/20 23 Discontinued documented as of this encounter (statuses as of 10/03/2023) Active Problems Problem Noted Date Diagnosed Date [...] of stroke Coronary artery disease invo lving seldovia coronary artery of s[place] heart without angina pectoris Pacemaker AICD (automatic cardioverter/defibrillator) pres ent Permanent atrial fibrillation documented as of this encounter (statuses as of 10/03/2023) Resolved Problems Problem Noted Date Diagnosed Date Resolved Date Dyslipidemia, goal LDL below 70 01/31/2021 01/13/2023 documented as of this encounter (statuses as of 10/03/2023) Immunizations Name Administration Dates Next Due COVID-19 [...] on file documented as of this encounter Last Filed Vital Signs Vital Sign Reading Time Taken Comments Blood Pressure 122/84 10/02/2023 4:13 PM EDT Pulse 77 10/02/2023 4:13 PM EDT Temperature 36.6 C (97.9 F) 10/02/2023 4:13 PM ED T Respiratory Rate 16 10/02/2023 4:13 PM EDT Oxygen Saturation 100% 10/02/2023 4:13 PM EDT Inhaled Oxygen Concentration - - Weight 104.9 kg (231 lb 4.8 oz) 10/02/2023 3:48 AM EDT Height - - Body Mass Index 28.15 09/19/2023 1:31 PM EDT documented in this encounter Functional Status Functional Status Response [...] (15 years old or older) Yes 09/25/20 Cognitive Status Response Date of Assessm ent Because of a physical, menta l, or emotional condition, do you have serious difficulty concentrating, remembering, or making decisions? (5 years old or older No 09/25/2023 documented as of this encounter Discharge Summaries * Bo Allen MD - 10/02/2023 4:53 PM EDT Images from the original note were not included. [facility] [address] Admission Date: 09/25/2023 Discharge Date: 10/02/2023 RECOMMENDED TO DO FOR NEXT PROVIDER(S): Follow up with Dr. Gisele Daugherty at [facility] within 1 week and Follow up with hematology 2 weeks at [place] BMP: date - 1 week; PLAR2 to be monitored with nephrology Next dose of rituximab will be arranded in 14 days from today by nephrology BM pending. Fortunately renal Bx was polyclonal, no evidence of paraprotein. REASON(S) FOR MEDICATION CHANGE(S): - started on Bactrim ds 1 tablet Friday and Friday for infection prophylaxis while on rituximab Eliquis load to be completed on 10/03 and start 5 mg BID from 10/04 DISPOSITION ON DISCHARGE: Other (Return to [facility]. Assisted Living Facility) Active Hospital Problems Diagnosis Monoclonal gammopathy Acute deep vein thrombosis (DVT) of both peroneal veins (HCC) Nephrotic syndrome Stage 3b chronic kidney disease (HCC) Nephrotic range proteinuria Resolved Hospital Problems No resolved problems to display. ADMISSION HISTORY & PHYSICAL EXAM (focused): As per the admitting: "PRESENTING PROBLEM: Transfer [facility] due to JOHN on CKD, c/f membranous nephropathy, Light chain disease needing kidney bx. 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 Hx obtained from pt and chart review (physical chart from [facility]). PT has been having worsening decompensated HF with admission at [facility] last month and was found to have nephrotic range proteinuria of 11g. He was agressively diuresed with plan for ongoing workup and treatment for nephrotic syndrome planned as outpatient. He was d/c home back to facility with lisinopril 5mg, Torsemide 40mg daily, spironolactone 12.5mg. On 09/23 he presented to [facility] ER after patient was found to have confusion and hypotension into the 70s SBP at facility. In the ER he presented with SBP of 95 and after albumin infusion and resuscitation he responded to 110s-120s SBP. His Cr on arrival was 1.8 with resolution to 1.5 which is his baseline. During his stay he underwent lab work up that showed elevated B2 microglobulin, Uprotein 24 that was 13g, and elevated light chains, + phospholipase A2. His diuretics were held given his hypotensive presentation and hsi plavix was stopped for preparation of needing kidney bx (last dose per [facility] paper chart was AM of 09/23) and his eliquis was held (last dose 09/23 PM) and started on hep gtt given permanent atrial fib. Nephrology saw patient at [facility] and recommended pt to need kidney bx for further dx before starting treatment. He was transferred to [facility] today (09/25) and I saw patient bedside. He was resting comfortably in NAD and no complaints, except for that he still has some swelling in his legs. He is rather anxious toget his renal biopsy done. Attempted to call sonLuis via number in chart, however, said this call can not go through. On arrival: Vitals: Afebrile, BP 124/77, HR 82, RA 99% Labs were notable for Na 142, K 3.8, BUN 28, Cr 1.4, calcium 8.7, Mg 2.6, phos 2.7, WBC 6, Hb 9.0, plt 95 Social situation: Lives at [facility], states he has a living will that says DNR/DNI, familycontact is Luis Troy (son) HYSICAL EXAMINATION: Most Recent Vital Signs: BP: 124 mmHg/77 mmHg (09/25/23 1040) Pulse: Temp: 36.06 C (09/25/23 1040) Resp: 18 (09/25/23 1040) SpO2: 99 % (09/25/23 1040) Constitutional: no acute distress, resting comfortably in bed, speaking in full sentences HENT: NCAT, MMM Eyes: sclera and conjunctiva normal Neck: normal range of motion CV: normal rate and rhythm, no murmur, gallops or rub Chest: normal respiratory effort, lungs clear to auscultation Abdomen: soft, bowel sounds normal, no tenderness Extremities: no clubbing, cyanosis, or edema, otherwise grossly normal, warm, and dry Psych: normal mood and affect " HOSPITAL COURSE (focused): Leonidas Troy is a 83 year old male presenting JOHN on CKD, concern for membranous nephropathy,and light chain disease needing kidney biopsy. Plavix and Eliquis were held for 5 days and underwent kidney biopsy and bone marrow biopsy. 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 Mild IF/TA. Overall stable kidney function and good clinical condition. N ephrology and I discussed Dx and therapy alternatives in detail with the patient and son over telephone. Discussed alternative lines of therapy , from more toxic steroids + Cyclophosphamide to Rituximab in the view of his MN being high risk of progression but also given his advanced age, cytopaniasand higher toxicity of first strategy, given renal fxn stability and great datra for Rituximab this strategy was recommended. Son Luis and patient expressed understading and wish to proceed. Startedon rituximab 1 g premedicated with steroids Tylenol and Benadryl. Tolerated the infusion well. Was discharged after monitoring here in the hospital with close Nephrology outpatient follow-up in [place]. Day of discharge exam: BP 122/84 | Pulse 77 | Temp 36.6 C (97.9 F) | Resp 16 | Wt 104.9 kg (231 lb 4.8 oz) | SpO2 100%| BMI 28.15 kg/m | BSA 2.37 m Constitutional: appears stated age, no acute distress HEENT: normocephalic, Neck: supple, CV: Regular rate and rhythm, S1 and S2 present, Chest: normal respiratory effort, Abdomen: soft, non-tender, Extremities: no edema, Skin: no rash, petechiae, Neuro: Moves all extremities equally, no focal deficits Psych: alert, oriented to person, place, and time, normal mood and affect Operations & Procedures: kidney and bm biopsy Complications: none significant Significant Lab and Imaging Results: As mentioned above Results Pending at Discharge: Lab Results Pending at Discharge: BONE MARROW PANEL Routine BONE MARROW ASPIRATE GREEN (REFERRED) Routine PT INR Routine CBC Routine RENAL FUNCTION PANEL Routine MEDICATION UPDATES AT DISCHARGE START taking these medications INSTRUCTIONS sulfamethoxazole-trimethoprim DS 800-160 MG per tablet Commonly known as: Bactrim DS Start taking on: October 03, 2023 Take 1 Tablet by mouth once a day on Friday, Friday, and Friday only. CONTINUE taking these medications INSTRUCTIONS Acetaminophen 500 MG Tablet Commonly known as: Tylenol Take 1 Tablet by mouth in the morning and 1 Tablet in the evening. Apixaban 5 MG Tablet Commonly known as: Eliquis Take 1 Tablet by mouth in the morning and 1 Tablet before bedtime. clopidogrel 75 MG Tablet Commonly known as: pLAVix Take 1 Tablet by mouth in the morning. Diclofenac Sodium 1 % gel Place topically on the skin 4 times a day. Apply to to back as needed Docusate Sodium 100 MG Capsule Commonly known as: Colace Take 1 Capsule by mouth daily. Ferrous Sulfate 325 (65 FE) MG Tablet Commonly known as: Feosol Take 1 Tablet by mouth in the morning and 1 Tablet at noon and 1 Tablet in the evening. Take with meals. Take twice per day with meals . FLUoxetine HCl 10 MG Tablet Commonly known as: PROzac Take 1 Tablet by mouth in the morning. fluticasone 50 MCG/ACT nasal spray Commonly known as: Flonase Administer 1 [place] into nostril in the morning. * Ketoconazole 2 % cream Apply behind ears twice daily as needed for flares * Ketoconazole 2 % shampoo Commonly known as: Nizoral Apply to scalp and behind ears 2-3 times per week; leave on 3-5 min before rinsing Lisinopril 5 MG Tablet Commonly known as: Prinivil Take 1 Tablet by mouth in the morning. Loratadine 10 MG Cap Take 1 Capsule by mouth in the morning. Melatonin 3 MG Capsule Take 1 Capsule by mouth at bedtime as needed. metoprolol succinate XL 25 MG Tb24 Commonly known as: Toprol XL Take 1 Tab by mouth 2 times a day. Nitroglycerin 0.4 MG Subl Commonly known as: Nitrostat Place 1 Tablet under the tongue every 5 minutes as needed for Pain, Chest. rosuvastatin 10 MG Tablet Commonly known as: Crestor Take 1 Tablet by mouth in the morning. Take one daily at bedtime . Spironolactone 100 MG Tablet Commonly known as: Aldactone Take 1 Tablet by mouth in the morning. Torsemide 40 MG Tabs Take 40 mg by mouth. Vitamin D (Cholecalciferol) 50 MCG (1999 UT) Caps Take by mouth. * This list has 2 medication(s) that are the same as other medications prescribed for you. Read thedirections carefully, and ask your doctor or other care provider to review them with you. STOP taking these medications Cephalexin 500 MG Capsule Commonly known as: Keflex Furosemide 40 MG Tablet Commonly known as: Lasix SCHEDULED FOLLOW-UP: Future Appointments Appt Date/Time Provider Department 10/09/2023 1:00 PM Gisele Daugherty MD Nephrology [facility] 10/28/2023 10:30 AM CT1 [facility] Radiology, [place] 10/28/2023 11:30 AM Garirck Dorman MD Urology, [place] 11/18/2023 2:00 PM [facility] Cardiology, [facility] 11/21/2023 1:50 PM Lavonne Herzog PA-C Dermatology [facility] 02/24/2024 4:20 PM Chicho Steward DO Neurology [facility] 04/16/2024 1:00 PM Payam Claire DO Family Practice [facility] Outpatient Follow Up Basic Metabolic Panel Other Information Indwelling Devices: LINES ALL Duration Peripheral Line Left;Lower 22 Gauge <1 day Vital Signs (last recorded): Most Recent Systolic BP: 122 mmHg (10/02/231612) Most Recent Diastolic BP: 84 mmHg (10/02/231612) Pulse: 77 (10/02/231612) Resp: 16 (10/02/231612) Most Recent Temperature: 36.61 C (10/02/231612) Weight: 104.9 kg (231 lb 4.8 oz) (10/02/23 0348) SpO2: 100 % (10/02/231612) O2 flow rate: 0 L/MIN (10/02/23 0838) Allergies: Patient has no known allergies. Activity: as tolerated Diet: age appropriate diet and low sodium Code status (this admission): No Code Discussion of adv directives occurred with - adult: Patient Condition on Discharge: stable Isolation status: None Cognition: normal HOSPITAL CONSULTS ORDERED: NEPHROLOGY CONSULT IP HEMATOLOGY CONSULT IP ADULT PHYSICAL THERAPY CONSULT IP ADULT OCCUPATIONAL THERAPY CONSULT IP REFERRING PHYSICIAN: Ref: RORO RIVERS[[id number]] [address] [facility] [place] [address] (office) [phone] (fax) PRIMARY CARE PROVIDER: PCP: Payam Claire DO [address] [place] [address] / [place] [address] (office) [phone] (fax) Note: To contact a physician responsible for this patients hospital care, please call [employer] [phone]. I spent a total of 50 minutes coordinating, documenting, and providing care for this patient excluding time spent in the performance of separately billed services. documented in this encounter Discharge Instructions * Discharge Instr - AVS* Bo Allen MD - 09/29/2023 3:27 PM EDT Discharge Date: 10/02/2023 The information below provides you with the instructions and the list of medications you need to betaking following discharge from the hospital. If you have any questions, please ask before leaving. If you have questions after leaving, you can reach us at the numbers below. YOUR HOSPITAL PROVIDERS: Discharging Provider: Bo Allen MD Provider Department: Hospital Medicine To reach this Provider Friday through Friday (8:00 AM to 4:30 PM) for any questions or test results: Call [phone] For after-hours concerns: Call [phone] and have your provider paged, or the provider network communications engineer for the Department of [facility] Medicine paged. Please note, the discharging provider will not be able to provide you with any medications refills.Please discuss these with your primary care provider. Worsening Symptoms: If you have new symptoms, or your symptoms get worse, please contact your Discharge Provider or Primary Care Provider (PCP). If these providers are not available, you can go to your local [facility] or Urgent Care Clinic during their business hours. In an EMERGENCY situation: Call [phone] or go to the nearest emergency room. A BRIEF SUMMARY OF YOUR HOSPITAL STAY: You came to the hospital with: complaint of protein in urine. 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 Overall stable kidney function and good clinical condition. You tolerated kidney biopsy and bone marrow biopsy well. Eliquis and Plavix were resumed at time of discharge.We discussed diagnosis and therapy alternatives in detail. Discussed alternative lines of therapy , from more toxic steroids + Cyclophosphamide to Rituximab in the view of his membranous nephropathy being high risk of progression but also given his advanced age, and higher toxicity of first strategy, given renal function stability and great data for Rituximab this strategy was recommended. After this rituximab was started and you tolerated the infusion well. Your discharge after monitoring here in the hospital and tolerating the infusion well. Inpatient test results that are pending at discharge: none Advance Directive Documented: Advance Directive Does the Patient have an Advance Directive? Yes YOUR FOLLOW UP APPOINTMENTS: Primary Care Provider Information: PCP: Payam Claire DO [address] [facility] / [place] [address] (office) [phone] (fax) An appointment was requested with your PCP (Payam Claire DO) within 7 days. (Please take this form to this visit with your primary care physician.) You need the following studies in the future: BMP: date - 1 week ; PLAR2 to be monitored with nephrology Follow up with Dr. Gisele Daugherty at [facility] within 1 week and Follow up with hematology 2 weeks at [place] INSTRUCTIONS: Diet: Low salt diet Activity: As tolerated Medication changes - started on Bactrim ds 1 tablet Friday and Friday for infection prophylaxis while on rituximab - should continue to take lisinopril 5 mg daily. - please take Eliquis 10 mg that is 2 tablets of 5 mg tablets twice a day till evening of October 03 and starting October 04 morning take 1 tablet 5 mg twice a day thereafter Additional Instructions: - Call your primary care physician or seek medical attention if shortness of breath, chest pain, dizziness. . - Do not use alcohol products in anyway! - Use caution when standing or walking since you are at an increased risk for falls - Do not take [id number] NSAIDs (nonsteroid anti-inflammatory medications); ie. Advil, Motrin, Ibuprofen, etc. Interventional radiology discharge instructions Procedure Date: 09/29/2023 Provider: Dr. Tim Ivy If you are experiencing any problems related to your procedure, please contact Interventional Radiology at [phone] during normal business hours: Friday - Friday, 8:00 am - 4:00 pm. If a problem occurs outside of normal business hours, please call the hospital stone lathe operator at [phone] and ask for the Interventional Radiologist network communications engineer. Contact scheduling for Interventional Radiology at [phone] during normal business hours: Friday - Friday, 8:00 am - 4:00 pm. The information below provides you with the instructions and the list of medications you need to betaking following discharge from the hospital. If you have any questions, please ask before leaving.Please carry this letter with you when you see your doctor in the clinic. If you have questions, you can reach us at the numbers above. SPECIAL INSTRUCTIONS Random Renal Biopsy Care After Your Biopsy If you experience pain or discomfort at the site you may use a cold pack on the site and/or take acetaminophen (Tylenol) or your preferred pain medicine as directed. Avoid strenuous activity for 24 to 48 hours after the procedure. Do not lift anything heavier than 10 pounds for 3 days after the procedure. Gradually increase your activity after 24 to 48 hours after the procedure. Keep the dressing clean and dry; change as needed. Dressing can be removed in 24 hours. You may shower after 24 hours. Gently wash the area and pat it dry. Please DO NOT take a bath, soak in a hot tub, or swim until the wound is completely healed. Follow Up Your requesting physician will contact you with the results of your test. Please allow 5 to 7 business days for your results. Please check [employer] messages or contact the referring physician for results. When to Call Interventional Radiology Call Interventional Radiology right away if you have any of the following: Fever above 100 degrees Fahrenheit Increased bleeding, redness, swelling, warmth, or discharge at the incision site. Constant or increasing pain, numbness, coldness, or tingling around the incision area. Vomiting or nausea that does not go away If at any time you experience any of the following or feel you are having a medical emergency, [id number] for emergency assistance. Chest Pain Sudden, severe shortness of breath Rapid heart rate Sudden onset of weakness Coughing up blood See your referring physician for follow-up appointment. Do not smoke or use tobacco products in any way! If you feel suicidal or homicidal, please call the crisis hotline at 7-903-961-FODP ([phone]) MODERATE SEDATION You may have received medication that made you comfortable/sedated you during your procedure. This is considered moderate sedation. This medication was given to relax you. You may also not remember having the procedure done. It may take up to 24 hours for this medication to be out of your system. Because of this, you should observe the following for the next 24 hours: Do not drink alcohol or take depressant drugs. Do not operate any type of machinery that requires hand-eye coordination. Do not sign any legal papers or documents. Do not make any financial decisions. You should be in the presence of an adult for the remainder of the day. If you are experiencing any problems related to your procedure, you should contact the Interventional Radiology physician unless otherwise directed. * Jo [facility] [place]* Arturo Freeman MSW - 10/02/2023 4:09 PM EDT Outpatient Radial Drill Press Operator: No, not applicable (09/29/23 1049) If you have Home Care Services, you should have a visit within 48 hours. documented in this encounter Progress Notes * Susi Lester MD - 10/02/2023 12:05 PM EDT ATTENDING PROGRESS NOTE - Nephrology [facility] [place]-[address] [address] Name: Leonidas Troy Location: [address] No overnight events, patient enjoying breakfast this am. Current medication list reviewed. 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 Mild IF/TA. Overall stable kidney function and good clinical condition We discussed Dx and therapy alternatives in detail. Discussed alternative lines of therapy , from more toxic steroids + Cyclophosphamide to Rituximab in the view of his MN being high risk of progression but also given his advanced age, cytopanias and higher toxicity of first strategy, given renal fxn stability and great datra for Rituximab this strategy was recommended. Son Luis and patient expressed understading and wish to proceed. Plan : 1 gm Rituximab today, pre med with 100 mg Metylprednisolone, Tylenol, Benadryl. Next dose will be arranded in 14 days from today. Bactrim prophylaxis Next cycle in 6 months Consider ACEi, once renal fxn continues to be stable. Low salt diet Close monitoring as OP including serial measurements of PLA2R BM pending. Fortunately renal Bx was polyclonal, no evidence of paraprotein. Will update to Dr. Romero.Gisele, as patient wishes to continue to follow with her as closer to his home. * Bo Allen MD - 10/01/2023 6:19 PM EDT Images from the original note were not included. [facility] G408/A INTERVAL HISTORY: No acute overnight events Patient was seen and evaluated at bedside this morning. Denies any acute concerns and resting comfortably. Rest all other ROS were negative apart from ones mentioned in the HPI Frustrated that he can not leave the hospital today because of awaiting biopsy results. I explainedreason for inpatient management and he expressed understanding. Objective Physical Exam Most Recent Vital Signs: BP: 118 mmHg/78 mmHg (10/01/231755) Pulse: 75 (10/01/231755) Temp: 36 C (10/01/231755) Resp: 16 (10/01/231755) SpO2: 100 % (10/01/231755) Constitutional: no acute distress CV: normal rate and rhythm, no murmur, gallops or rub Chest: normal respiratory effort, lungs clear to auscultation and percussion Abdomen: soft, no tenderness Extremities: trace B/L LE edema Neuro: alert, oriented to person, place, and time Psych: normal mood and affect Peripheral Line Left;Lower;Posterior Arm 20 Gauge (Active) Number of days: 6 Peripheral Line Lower;Posterior;Right Arm 20 Gauge (Active) Number of days: 6 STUDIES: Encounter Orders Labs and other studies reviewed with pertinent findings noted below: Latest Reference Range & Units 09/30/23 06:37 10/01/23 06:03 WBC 4.00 - 10.80 K/uL 6.65 6.23 HGB 14.0 - 16.8 g/dL 9.8 (L) 9.3 (L) HCT 40.0 - 48.4 % 30.6 (L) 28.6 (L) MCV 82.0 - 99.5 fL 110.1 109.6 PLT 140 - 400 K/uL 105 (L) 94 (L) Absolute Neutrophils 1.80 - 7.70 K/uL 4.44 Absolute Lymphocytes 1.00 - 4.80 K/ul 1.06 Absolute Monocytes 0.00 - 1.10 K/uL 0.83 Absolute Eosinophils 0.00 - 0.70 K/uL 0.34 Absolute Basophils 0.00 - 0.20 K/uL 0.07 (L): Data is abnormally low Latest Reference Range & Units 09/30/23 06:37 10/01/23 06:03 Sodium 135 - 146 mmol/L 140 142 Potassium 3.5 - 5.1 mmol/L 4.1 4.2 Chloride 98 - 107 mmol/L 111 (H) 111 (H) CO2 22 - 32 mmol/L 22 21 (L) BUN 6 - 20 mg/dL 38 (H) 42 (H) Creatinine 0.6 - 1.2 mg/dL 1.7 (H) 2.1 (H) Estimated Glomerular Filtration Rate >=60 mL/min 40 (L) 31 (L) Anion Gap 7 - 15 mmol/L 7 10 Glucose 70 - 120 mg/dL 98 93 Calcium 8.4 - 10.2 mg/dL 8.0 (L) 7.9 (L) Phosphorus 2.5 - 4.8 mg/dL 2.9 2.8 (H): Data is abnormally high (L): Data is abnormally low Assessment and Plan IMPRESSION : Active Problems: Monoclonal gammopathy Acute deep vein thrombosis (DVT) of both peroneal veins (HCC) Nephrotic syndrome Stage 3b chronic kidney disease (HCC) Nephrotic range proteinuria Resolved Problems: * No resolved hospital problems. * DIFFERENTIAL AND PLAN: Leonidas Troy is a 83 year old male with a medical history as above presenting with nephrotic syndrome in setting of IgG kappa monoclonal protein. 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 -resume Eliquis tonight - renal vein thrombosis ruled out with a CT scan - checking hepatitis panel, QuantiFERON test preparation for considering Rituxan. - nephrology and hematology consulted and appreciate recommendations. - completed bone marrow biopsy as well - 24 hr UPEP - likely will need Rituxan tomorrow. Will discuss further with Nephrology. Bilateral distal DVTs, history of atrial fibrillation on Eliquis - resume Eliquis as above Thrombocytopenia - stable, appreciate hematology consult for further workup CAD, history of ischemic cardiomyopathy with EF of 30%-and moderate MR - resume Plavix - holding ELECTRICAL INTEGRATOR diuretics for now - continue ELECTRICAL INTEGRATOR Crestor - holding lisinopril Depression: Fluoxetine PHARMACOLOGIC VTE PROPHYLAXIS: Apixaban CODE STATUS: No Code EXPECTED DISCHARGE DATE: 10/02/2023 Discussed extensively with Nephrology today. Updated son over telephone. I spent a total of 60 minutes coordinating, documenting, and providing care for this patient excluding time spent in the performance of separately billed services. * Neno Alberto MD - 10/01/2023 8:54 AM EDT Images from the original note were not included. 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 13gm proteinuria, serum albumin mid to high 2's. Also found to have Rt LL DVT Plavix/Apixaban last dose 09/23, switched to heparin infusion - S/p kidney Bx SUBJECTIVE: Patient is doing the same No loin pain or hematuria Frustrated with hospital stay Requesting discharge OBJECTIVE: Vital Signs last 24 Hours: Systolic BP: Most Recent Systolic BP Av.7 mmHg Min: 110 mmHg Max: 137 mmHg Temperature: Most Recent Temperature Av.6 C Min: 36.39 C Max: 36.89 C Pulse: Pulse Av Min: 73 Max: 84 Respirations: Resp Av Min: 18 Max: 18 SpO2: SpO2 Av.2 % Min: 95 % Max: 100 % Patient is sitting in his Chair, looks the same but not in acute distress HEENT; No pallor conjunctiva or yellowish sclera, JVP not distended Lung; bilateral breath sounds, no added sounds Pericardium; ICD/PPM to left shoulder. RRR, pansystolic murmur Abdomen; soft, non tender, not distended MSK; LL edema +2, no rashes Neuro; conscious alert oriented, mild hearing impairment, no facial asymmetry, moving arms freely LABS: Latest Reference Range & Units 09/28/23 04:39 09/29/23 08:56 09/30/23 06:37 10/01/23 06:03 Sodium 135 - 146 mmol/L 139 141 140 142 Potassium 3.5 - 5.1 mmol/L 4.3 3.9 4.1 4.2 Chloride 98 - 107 mmol/L 110 (H) 112 (H) 111 (H) 111 (H) CO2 22 - 32 mmol/L 21 (L) 21 (L) 22 21 (L) BUN 6 - 20 mg/dL 34 (H) 35 (H) 38 (H) 42 (H) Creatinine 0.6 - 1.2 mg/dL 1.7 (H) 1.5 (H) 1.7 (H) 2.1 (H) Estimated Glomerular Filtration Rate >=60 mL/min 38 (L) 45 (L) 40 (L) 31 (L) Anion Gap 7 - 15 mmol/L 8 8 7 10 Glucose 70 - 120 mg/dL 84 86 98 93 Calcium 8.4 - 10.2 mg/dL 7.9 (L) 8.0 (L) 8.0 (L) 7.9 (L) Phosphorus 2.5 - 4.8 mg/dL 2.8 2.3 (L) 2.9 2.8 WBC 4.00 - 10.80 K/uL 5.93 5.45 6.65 6.23 HGB 14.0 - 16.8 g/dL 9.1 (L) 9.3 (L) 9.8 (L) 9.3 (L) HCT 40.0 - 48.4 % 28.3 (L) 29.3 (L) 30.6 (L) 28.6 (L) MCV 82.0 - 99.5 fL 112.3 111.4 110.1 109.6 PLT 140 - 400 K/uL 110 (L) 117 (L) 105 (L) 94 (L) Albumin 3.8 - 5.0 g/dL 2.6 (L) 2.7 (L) 2.9 (L) 2.8 (L) IMAGING: Reviewed IMPRESSION: Nephrotic syndrome - Features of membranous/MGRS. (+ PLA2R, IgG kappa spike) - Presentation at current age raise suspicion for underlying malignancy - S/p BMA/B PLAN: - Preliminary results of light microscopy showing features of membranous Awaiting immunofluorescence/EM to differentiate between primary/secondary - Will finalize plan tomorrow awaiting Bx results Patient was seen and examined, discussed with Dr Lester Plan of care explained to the patient, he showed comprehension and agreement Discussed with primary team Neno Alberto MD Nephrology Fellow Associated attestation - Susi Lester MD - 10/01/2023 6:18 PM EDT I saw and evaluated the patient today. I have reviewed the trainee note and agree. Received call from Dr. 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 Thioglavin T negative, DIF polyclonal. EM is pending. PLA2R and NELL1 and other antigens to sent also. Pending. We will discuss with patient and family once report finalized, in am. Recommendation will be Rituximab 1gm X 2 by 14 days, pending discussion with family and informed consent. This will be repeated in 6 months. * Bo Allen MD - 09/30/2023 1:34 PM EDT Images from the original note were not included. [facility] G408/A INTERVAL HISTORY: No acute overnight events Patient was seen and evaluated at bedside this morning. Denies any acute concerns and resting comfortably. Rest all other ROS were negative apart from ones mentioned in the HPI Tolerated procedure yesterday well. Objective Physical Exam Most Recent Vital Signs: BP: 116 mmHg/69 mmHg (09/30/23 1200) Pulse: 77 (09/30/23 1200) Temp: 36.39 C (09/30/23 1200) Resp: 18 (09/30/23 0600) SpO2: 100 % (09/30/23 1200) Constitutional: no acute distress CV: normal rate and rhythm, no murmur, gallops or rub Chest: normal respiratory effort, lungs clear to auscultation and percussion Abdomen: soft, no tenderness Extremities: trace B/L LE edema Neuro: alert, oriented to person, place, and time Psych: normal mood and affect Peripheral Line Left;Lower;Posterior Arm 20 Gauge (Active) Number of days: 5 Peripheral Line Lower;Posterior;Right Arm 20 Gauge (Active) Number of days: 5 STUDIES: Encounter Orders Labs and other studies reviewed with pertinent findings noted below: Latest Reference Range & Units 09/29/23 08:56 09/30/23 06:37 WBC 4.00 - 10.80 K/uL 5.45 6.65 HGB 14.0 - 16.8 g/dL 9.3 (L) 9.8 (L) HCT 40.0 - 48.4 % 29.3 (L) 30.6 (L) MCV 82.0 - 99.5 fL 111.4 110.1 PLT 140 - 400 K/uL 117 (L) 105 (L) Absolute Neutrophils 1.80 - 7.70 K/uL 4.44 Absolute Lymphocytes 1.00 - 4.80 K/ul 1.06 Absolute Monocytes 0.00 - 1.10 K/uL 0.83 Absolute Eosinophils 0.00 - 0.70 K/uL 0.34 Absolute Basophils 0.00 - 0.20 K/uL 0.07 (L): Data is abnormally low Latest Reference Range & Units 09/29/23 08:56 09/30/23 06:37 Sodium 135 - 146 mmol/L 141 140 Potassium 3.5 - 5.1 mmol/L 3.9 4.1 Chloride 98 - 107 mmol/L 112 (H) 111 (H) CO2 22 - 32 mmol/L 21 (L) 22 BUN 6 - 20 mg/dL 35 (H) 38 (H) Creatinine 0.6 - 1.2 mg/dL 1.5 (H) 1.7 (H) Estimated Glomerular Filtration Rate >=60 mL/min 45 (L) 40 (L) Anion Gap 7 - 15 mmol/L 8 7 Glucose 70 - 120 mg/dL 86 98 Calcium 8.4 - 10.2 mg/dL 8.0 (L) 8.0 (L) Phosphorus 2.5 - 4.8 mg/dL 2.3 (L) 2.9 (H): Data is abnormally high (L): Data is abnormally low Assessment and Plan IMPRESSION : Active Problems: Monoclonal gammopathy Acute deep vein thrombosis (DVT) of both peroneal veins (HCC) Nephrotic syndrome Stage 3b chronic kidney disease (HCC) Nephrotic range proteinuria Resolved Problems: * No resolved hospital problems. * DIFFERENTIAL AND PLAN: Leonidas Troy is a 83 year old male with a medical history as above presenting with nephrotic syndrome in setting of IgG kappa monoclonal protein. IgG kappa monoclonal protein Nephrotic syndrome, proteinuria on known CKD stage 3 Serologic positive for high GERA 2R antibiotics, suspecting membranous glomerular nephritis. -Last dose of Eliquis is on 23 of September and Plavix on 24th morning. - possible MGN vs MGRS - renal vein thrombosis ruled out with a CT scan - checking hepatitis panel, QuantiFERON test preparation for considering Rituxan. - nephrology and hematology consulted and appreciate recommendations. - Completed kidney bx, holding AC as per heme and nephrology. At least for 24 hours and depending on timing of BMBx - might need bone marrow aspiration: Discussed this with hematology, planning for BM Bx today. - holding steroids - 24 hr UPEP Bilateral distal DVTs, history of atrial fibrillation on Eliquis - holding heparin drip, as above Thrombocytopenia - stable, appreciate hematology consult for further workup CAD, history of ischemic cardiomyopathy with EF of 30%-and moderate MR - holding Plavix with last stent more than 10 years ago. - holding ELECTRICAL INTEGRATOR diuretics for now - continue ELECTRICAL INTEGRATOR Crestor - holding lisinopril Depression: Fluoxetine PHARMACOLOGIC VTE PROPHYLAXIS: Apixaban CODE STATUS: No Code EXPECTED DISCHARGE DATE: No information available I spent a total of 45 minutes coordinating, documenting, and providing care for this patient excluding time spent in the performance of separately billed services. * Neno Alberto MD - 09/30/2023 9:07 AM EDT Images from the original note were not included. PROGRESS NOTE - Nephrology [facility] [place]-[address] [address] Name: Lenoidas Troy Location: [facility] G408/A Date: 09/30/2023 Time: 9:07 AM BACKGROUND 83 year old Male - HTN, CAD (Hx of PCIs) on plavix, AF on DOAC, HFpEF with moderate MR, PPM-ICD insertion Mild vascular dementia Progressive slow CKD over past 2 years - Transferred from [facility] in view of nephrotic syndrome Hx of nephrotic syndrome 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 13gm proteinuria, serum albumin mid to high 2's. Plavix/Apixaban last dose 09/23, switched to heparin infusion - S/p kidney Bx today OBJECTIVE: Vital Signs last 24 Hours: Systolic BP: Most Recent Systolic BP Av.1 mmHg Min: 104 mmHg Max: 134 mmHg Temperature: Most Recent Temperature Av.6 C Min: 35.89 C Max: 37.22 C Pulse: Pulse Av.2 Min: 74 Max: 81 Respirations: Resp Av.8 Min: 11 Max: 19 SpO2: SpO2 Av.8 % Min: 91 % Max: 100 % Limited exam due to instruction of laying flat Patient is laying in his bed, looks the same but not in acute distress HEENT; No pallor conjunctiva or yellowish sclera, JVP not distended Lung; bilateral breath sounds, no added sounds Pericardium; ICD/PPM to left shoulder. RRR, pansystolic murmur Abdomen; soft, non tender, not distended MSK; LL edema +2, no rashes Neuro; conscious alert oriented, mild hearing impairment, no facial asymmetry, moving arms freely LABS: Latest Reference Range & Units 09/27/23 05:05 09/28/23 04:39 09/29/23 08:56 09/30/23 06:37 Sodium 135 - 146 mmol/L 141 139 141 140 Potassium 3.5 - 5.1 mmol/L 4.1 4.3 3.9 4.1 Chloride 98 - 107 mmol/L 111 (H) 110 (H) 112 (H) 111 (H) CO2 22 - 32 mmol/L 21 (L) 21 (L) 21 (L) 22 BUN 6 - 20 mg/dL 34 (H) 34 (H) 35 (H) 38 (H) Creatinine 0.6 - 1.2 mg/dL 1.8 (H) 1.7 (H) 1.5 (H) 1.7 (H) Estimated Glomerular Filtration Rate >=60 mL/min 36 (L) 38 (L) 45 (L) 40 (L) Anion Gap 7 - 15 mmol/L 9 8 8 7 Glucose 70 - 120 mg/dL 92 84 86 98 Calcium 8.4 - 10.2 mg/dL 8.0 (L) 7.9 (L) 8.0 (L) 8.0 (L) Phosphorus 2.5 - 4.8 mg/dL 2.5 2.8 2.3 (L) 2.9 WBC 4.00 - 10.80 K/uL 7.13 5.93 5.45 6.65 HGB 14.0 - 16.8 g/dL 9.4 (L) 9.1 (L) 9.3 (L) 9.8 (L) PLT 140 - 400 K/uL 106 (L) 110 (L) 117 (L) 105 (L) Albumin 3.8 - 5.0 g/dL 2.9 (L) 2.6 (L) 2.7 (L) 2.9 (L) IMAGING: Reviewed IMPRESSION: Nephrotic syndrome - Features of membranous/MGRS - Presentation at current age raise suspicion for underlying malignancy - On heparin bridging in view of high CHADVASC PLAN: - Preliminary results of light microscopy showing features of membranous Awaiting immunofluorescence/EM to differentiate between primary/secondary - Continue on same Rx Patient was seen and examined, discussed with Dr Lester Plan of care explained to the patient, he showed comprehension and agreement Neno Alberto MD Nephrology Fellow Associated attestation - Susi Lester MD - 09/30/2023 7:20 PM EDT I saw and evaluated the patient today. I have reviewed the trainee note and agree. * Neno Alberto MD - 09/29/2023 7:03 PM EDT Images from the original note were not included. PROGRESS NOTE - Nephrology [facility] [place]-[address] [id number] Name: Leonidas Troy Location: [facility] G4/A Date: 09/29/2023 Time: 7:03 PM BACKGROUND 83 year old Male - HTN, CAD (Hx of PCIs) on plavix, AF on DOAC, HFpEF with moderate MR, PPM-ICD insertion Mild vascular dementia Progressive slow CKD over past 2 years - Transferred from [facility] in view of nephrotic syndrome Hx of nephrotic syndrome 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 13gm proteinuria, serum albumin mid to high 2's. Plavix/Apixaban last dose 09/23, switched to heparin infusion - S/p kidney Bx today SUBJECTIVE: Patient seen following procedure Doing well Asymptomatic No hematuria or flank pain OBJECTIVE: Vital Signs last 24 Hours: Systolic BP: Most Recent Systolic BP Av.1 mmHg Min: 104 mmHg Max: 134 mmHg Temperature: Most Recent Temperature Av.5 C Min: 35.89 C Max: 36.78 C Pulse: Pulse Av.3 Min: 74 Max: 81 Respirations: Resp Av.8 Min: 11 Max: 19 SpO2: SpO2 Av.6 % Min: 91 % Max: 100 % Limited exam due to instruction of laying flat Patient is laying in his bed, looks the same but not in acute distress HEENT; No pallor conjunctiva or yellowish sclera, JVP not distended Lung; bilateral breath sounds, no added sounds Pericardium; ICD/PPM to left shoulder. RRR, pansystolic murmur Abdomen; soft, non tender, not distended MSK; LL edema +2, no rashes Neuro; conscious alert oriented, mild hearing impairment, no facial asymmetry, moving arms freely LABS: Latest Reference Range & Units 09/27/23 05:05 09/28/23 04:39 09/29/23 08:56 Sodium 135 - 146 mmol/L 141 139 141 Potassium 3.5 - 5.1 mmol/L 4.1 4.3 3.9 Chloride 98 - 107 mmol/L 111 (H) 110 (H) 112 (H) CO2 22 - 32 mmol/L 21 (L) 21 (L) 21 (L) BUN 6 - 20 mg/dL 34 (H) 34 (H) 35 (H) Creatinine 0.6 - 1.2 mg/dL 1.8 (H) 1.7 (H) 1.5 (H) Estimated Glomerular Filtration Rate >=60 mL/min 36 (L) 38 (L) 45 (L) Anion Gap 7 - 15 mmol/L 9 8 8 Glucose 70 - 120 mg/dL 92 84 86 Calcium 8.4 - 10.2 mg/dL 8.0 (L) 7.9 (L) 8.0 (L) Phosphorus 2.5 - 4.8 mg/dL 2.5 2.8 2.3 (L) WBC 4.00 - 10.80 K/uL 7.13 5.93 5.45 HGB 14.0 - 16.8 g/dL 9.4 (L) 9.1 (L) 9.3 (L) PLT 140 - 400 K/uL 106 (L) 110 (L) 117 (L) Albumin 3.8 - 5.0 g/dL 2.9 (L) 2.6 (L) 2.7 (L) IMAGING: Reviewed IMPRESSION: Nephrotic syndrome - Features of membranous/MGRS - Presentation at current age raise suspicion for underlying malignancy - On heparin bridging in view of high CHADVASC PLAN: - Will keep off steroids - Will follow preliminary Kidney Bx result tomorrow - Recommend to keep off heparin for at least 24hrs following procedure if no contraindications Patient was seen and examined, discussed with Dr Lester Plan of care explained to the patient, he showed comprehension and agreement Discussed with primary team Neno Alberto MD Nephrology Fellow Associated attestation - Susi Lester MD - 09/29/2023 7:43 PM EDT I saw and evaluated the patient today. I have reviewed the trainee note and agree. * Bo Allen MD - 09/29/2023 1:53 PM EDT Images from the original note were not included. [facility] G408/A INTERVAL HISTORY: No acute overnight events Patient was seen and evaluated at bedside this morning. Denies any acute concerns and resting comfortably. Rest all other ROS were negative apart from ones mentioned in the HPI Son at bedside as well. Both express their frustration on not knowing the exact timing of the procedure yesterday when son tried to call to the restaurant front manager. I apologized for the communication gap but explained that it is hard to know the exact timing for non emergent inpatient schedule specially if any emergency may be scheduled prior to that. They voiced understanding in potential delay but stillwere frustrated with the procedure being in afternoon today instead of the morning. Objective Physical Exam Most Recent Vital Signs: BP: 113 mmHg/76 mmHg (09/29/23 0902) Pulse: 77 (09/28/23 0300) Temp: 36.5 C (09/29/23 1100) Resp: 19 (09/29/23 1100) SpO2: 97 % (09/29/23 0600) Constitutional: no acute distress CV: normal rate and rhythm, no murmur, gallops or rub Chest: normal respiratory effort, lungs clear to auscultation and percussion Abdomen: soft, no tenderness Extremities: trace bilateral LE edema Neuro: alert, oriented to person, place, and time Psych: normal mood and affect Peripheral Line Left;Lower;Posterior Arm 20 Gauge (Active) Number of days: 4 Peripheral Line Lower;Posterior;Right Arm 20 Gauge (Active) Number of days: 4 STUDIES: Encounter Orders Labs and other studies reviewed with pertinent findings noted below: Latest Reference Range & Units 09/28/23 04:39 09/29/23 08:56 WBC 4.00 - 10.80 K/uL 5.93 5.45 HGB 14.0 - 16.8 g/dL 9.1 (L) 9.3 (L) HCT 40.0 - 48.4 % 28.3 (L) 29.3 (L) MCV 82.0 - 99.5 fL 112.3 111.4 PLT 140 - 400 K/uL 110 (L) 117 (L) (L): Data is abnormally low Latest Reference Range & Units 09/28/23 04:39 09/29/23 08:56 Sodium 135 - 146 mmol/L 139 141 Potassium 3.5 - 5.1 mmol/L 4.3 3.9 Chloride 98 - 107 mmol/L 110 (H) 112 (H) CO2 22 - 32 mmol/L 21 (L) 21 (L) BUN 6 - 20 mg/dL 34 (H) 35 (H) Creatinine 0.6 - 1.2 mg/dL 1.7 (H) 1.5 (H) Estimated Glomerular Filtration Rate >=60 mL/min 38 (L) 45 (L) Anion Gap 7 - 15 mmol/L 8 8 Glucose 70 - 120 mg/dL 84 86 Calcium 8.4 - 10.2 mg/dL 7.9 (L) 8.0 (L) Phosphorus 2.5 - 4.8 mg/dL 2.8 2.3 (L) (H): Data is abnormally high (L): Data is abnormally low Assessment and Plan IMPRESSION : Active Problems: Monoclonal gammopathy Acute deep vein thrombosis (DVT) of both peroneal veins (HCC) Nephrotic syndrome Stage 3b chronic kidney disease (HCC) Nephrotic range proteinuria Resolved Problems: * No resolved hospital problems. * DIFFERENTIAL AND PLAN: Leonidas Troy is a 83 year old male with a medical history as above presenting with nephrotic syndrome in setting of IgG kappa monoclonal protein. IgG kappa monoclonal protein Nephrotic syndrome, proteinuria on known CKD stage 3 Serologic positive for high GERA 2R antibiotics, suspecting membranous glomerular nephritis. -Last dose of Eliquis is on 23 of September and Plavix on 24 morning. - possible MGN vs MGRS - renal vein thrombosis ruled out with a CT scan - checking hepatitis panel, QuantiFERON test preparation for considering Rituxan. - nephrology and hematology consulted and appreciate recommendations. - Plan for kidney biopsy today. Discussed with IR, so far planned for afternoon, but no definite time yet. I have relayed the same to the family. - might need bone marrow aspiration which will be decided after kidney biopsy. - holding steroids - 24 hr UPEP Bilateral distal DVTs, history of atrial fibrillation on Eliquis - holding heparin drip,ok to hold ac due to DVT being distal - plan to resume Eliquis after biopsy after discussion with heme/nephrology Thrombocytopenia - stable, appreciate hematology consult for further workup CAD, history of ischemic cardiomyopathy with EF of 30%-and moderate MR - holding Plavix with last stent more than 10 years ago. - holding ELECTRICAL INTEGRATOR diuretics for now - -continue ELECTRICAL INTEGRATOR Crestor - holding lisinopril Depression: Fluoxetine PHARMACOLOGIC VTE PROPHYLAXIS: Apixaban CODE STATUS: No Code EXPECTED DISCHARGE DATE: 10/03/2023 Son updated at bedside I spent a total of 60 minutes coordinating, documenting, and providing care for this patient excluding time spent in the performance of separately billed services. * Susi Lester MD - 09/28/2023 9:39 AM EDT ATTENDING PROGRESS NOTE - Nephrology [facility]-[address] [address] Name: Leonidas Troy Location: [facility]08/A Patient seen peripherally today Chart reviewed BP 127/82 | Pulse 77 | Temp 36.1 C (97 F) (Tympanic) | Resp 18 | Wt 105.1 kg (231 lb 11.2 oz) |SpO2 95% | BMI 28.20 kg/m | BSA 2.37 m Intake/Output Summary (Last 24 hours) at 09/28/2023 0940 Last data filed at 09/28/2023 0600 Gross per 24 hour Intake -- Output 350 ml Net -350 ml Latest Reference Range & Units 09/28/23 04:39 Sodium 135 - 146 mmol/L 139 Potassium 3.5 - 5.1 mmol/L 4.3 Chloride 98 - 107 mmol/L 110 (H) CO2 22 - 32 mmol/L 21 (L) BUN 6 - 20 mg/dL 34 (H) Creatinine 0.6 - 1.2 mg/dL 1.7 (H) Estimated Glomerular Filtration Rate >=60 mL/min 38 (L) Anion Gap 7 - 15 mmol/L 8 Glucose 70 - 120 mg/dL 84 Calcium 8.4 - 10.2 mg/dL 7.9 (L) Phosphorus 2.5 - 4.8 mg/dL 2.8 A/p Nephrotic syndrome with abnormal kidney FXN, yet stable PLA2R Ab + suggestive of MN but concern for high LD and increased [place]/lambda ( paraproteinemia)/ MGRS A fib, bridged with heparin, Eliquis/plavix stopped for kidney Bx on Mon. Moderate risk of bleeding, carefuly timing heparin drip dina procedure. * Slava Herring MD - 09/28/2023 7:48 AM EDT Images from the original note were not included. [facility] G408/A INTERVAL HISTORY: No acute overnight events, continues to be on heparin drip Patient was seen and evaluated at bedside this morning. Denies any acute concerns and resting comfortably. Rest all other ROS were negative apart from ones mentioned in the HPI Objective Physical Exam Most Recent Vital Signs: BP: 108 mmHg/49 mmHg (09/28/23299) Pulse: 77 (09/28/23299) Temp: 36.61 C (09/28/23299) Resp: 16 (09/28/23299) SpO2: 95 % (09/28/23299) Constitutional: no acute distress CV: normal rate and rhythm, no murmur, gallops or rub Chest: normal respiratory effort, lungs clear to auscultation and percussion Abdomen: soft, no tenderness Extremities: no edema Neuro: alert, oriented to person, place, and time Psych: normal mood and affect Peripheral Line Left;Lower;Posterior Arm 20 Gauge (Active) Number of days: 3 Peripheral Line Lower;Posterior;Right Arm 20 Gauge (Active) Number of days: 3 STUDIES: Encounter Orders Labs and other studies reviewed with pertinent findings noted below: Chemistry with creatinine 1.7, GFR 38, calcium 7.9 CBC without leukocytosis, hemoglobin 9.1, platelet 110 Assessment and Plan IMPRESSION : Active Problems: Monoclonal gammopathy Acute deep vein thrombosis (DVT) of both peroneal veins (HCC) Nephrotic syndrome Stage 3b chronic kidney disease (HCC) Nephrotic range proteinuria Resolved Problems: * No resolved hospital problems. * DIFFERENTIAL AND PLAN: Leonidas Troy is a 83 year old male with a medical history as above presenting with nephrotic syndrome in setting of IgG kappa monoclonal protein. IgG kappa monoclonal protein Nephrotic syndrome, proteinuria on known CKD stage 3 Serologic positive for high GERA 2R antibiotics, suspecting membranous glomerular nephritis. -Last dose of Eliquis is on 23 of September and Plavix on 24th morning. - possible MGN vs MGRS - renal vein thrombosis ruled out with a CT scan - checking hepatitis panel, QuantiFERON test preparation for considering Rituxan. - nephrology and hematology consulted and appreciate recommendations. 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 - might need bone marrow aspiration which will be decided after kidney biopsy. - holding steroids - 24 hr UPEP Bilateral distal DVTs, history of atrial fibrillation on Eliquis - continue heparin drip, can into it anticoagulation if needed for renal biopsy as DVTs at distal - plan to resume Eliquis after biopsy -hold heparin from midnight 2-3 pm midnight, NPO except medications for midnight Thrombocytopenia - stable, appreciate hematology consult for further workup CAD, history of ischemic cardiomyopathy with EF of 30%-and moderate MR - holding Plavix with last stent more than 10 years ago. - holding ELECTRICAL INTEGRATOR diuretics for now - -continue ELECTRICAL INTEGRATOR Crestor - holding lisinopril Depression: Fluoxetine PHARMACOLOGIC VTE PROPHYLAXIS: Apixaban hEParin CODE STATUS: No Code EXPECTED DISCHARGE DATE: 10/01/2023 I spent a total of 48 minutes coordinating, documenting, and providing care for this patient excluding time spent in the performance of separately billed services. This note was completed in part utilizing [employer] Speech Voice Recognition Software. Grammatical errors, random word insertions, pronoun errors and incomplete sentences are an occasional consequence of this system due to software limitations, ambient noise and hardware issues. Please directly address the provider for any questions or concerns about the context, text or information contained within the body of this note. * Susi Lester MD - 09/27/2023 2:23 PM EDT ATTENDING PROGRESS NOTE - Nephrology [facility] [place]-[address] [address] Name: Leonidas Troy Location: [facility] G4/A Patient seen peripherally today Chart reviewed BP 137/83 | Pulse 75 | Temp 36.7 C (98.1 F) (Tympanic) | Resp 18 | Wt 104.6 kg (230 lb 9.6 oz) | SpO2 97% | BMI 28.07 kg/m | BSA 2.37 m Intake/Output Summary (Last 24 hours) at 09/27/2023 1424 Last data filed at 09/27/2023 0900 Gross per 24 hour Intake 480 ml Output 375 ml Net 105 ml Latest Reference Range & Units 09/27/23 05:05 Sodium 135 - 146 mmol/L 141 Potassium 3.5 - 5.1 mmol/L 4.1 Chloride 98 - 107 mmol/L 111 (H) CO2 22 - 32 mmol/L 21 (L) BUN 6 - 20 mg/dL 34 (H) Creatinine 0.6 - 1.2 mg/dL 1.8 (H) Estimated Glomerular Filtration Rate >=60 mL/min 36 (L) Anion Gap 7 - 15 mmol/L 9 Glucose 70 - 120 mg/dL 92 Calcium 8.4 - 10.2 mg/dL 8.0 (L) Phosphorus 2.5 - 4.8 mg/dL 2.5 (H): Data is abnormally high (L): Data is abnormally low A/p Nephrotic syndrome with abnormal kidney FX yet stable PLA2R Ab + suggestive of MN but concern for high LD and increased [place]/lambda ( paraproteinemia)/ MGRS A fib, bridged with heparin, Eliquis/plavix stopped for kidney Bx on Fri * Slava Herring MD - 09/27/2023 7:34 AM EDT Images from the original note were not included. [facility] G408/A INTERVAL HISTORY: No acute overnight events, continues to be on heparin drip Patient was seen and evaluated at bedside this morning. Denies any acute concerns and resting comfortably. Rest all other ROS were negative apart from ones mentioned in the HPI Objective Physical Exam Most Recent Vital Signs: BP: 137 mmHg/83 mmHg (09/27/23 0700) Pulse: 75 (09/26/23 0850) Temp: 36.78 C (09/27/23 07) Resp: 18 (09/27/23 0700) SpO2: 97 % (09/27/23699) Constitutional: no acute distress CV: normal rate and rhythm, no murmur, gallops or rub Chest: normal respiratory effort, lungs clear to auscultation and percussion Abdomen: soft, no tenderness Extremities: no edema Neuro: alert, oriented to person, place, and time Psych: normal mood and affect Peripheral Line Left;Lower;Posterior Arm 20 Gauge (Active) Number of days: 2 Peripheral Line Lower;Posterior;Right Arm 20 Gauge (Active) Number of days: 2 STUDIES: Encounter Orders Labs and other studies reviewed with pertinent findings noted below: Chemistry with creatinine 1 point going up, BUN 34, calcium 8 CBC with hemoglobin 9.4, platelet 106 Latest Reference Range & Units 09/25/23 18:06 [place] Free Light Chains, Serum 3.30 - 19.40 mg/L 80.05 (H) [place] Lambda Free Light Chains Ratio 0.26 - 1.65 2.50 (H) Lambda Free Light Chains, Serum 5.71 - 26.30 mg/L 31.99 (H) (H): Data is abnormally high Assessment and Plan IMPRESSION : Active Problems: Monoclonal gammopathy Acute deep vein thrombosis (DVT) of both peroneal veins (HCC) Nephrotic syndrome Stage 3b chronic kidney disease (HCC) Nephrotic range proteinuria Resolved Problems: * No resolved hospital problems. * DIFFERENTIAL AND PLAN: Leonidas Troy is a 83 year old male with a medical history as above presenting with nephrotic syndrome in setting of IgG kappa monoclonal protein. IgG kappa monoclonal protein Nephrotic syndrome, proteinuria on known CKD stage 3 Serologic positive for high GERA 2R antibiotics, suspecting membranous glomerular nephritis. - planning for renal biopsy, monitor platelets, tentatively planned with IR on Friday. Last dose ofEliquis is on 23 of September and Plavix on morning. - possible MGN vs MGRS - renal vein thrombosis ruled out with a CT scan - checking hepatitis panel, QuantiFERON test preparation for considering Rituxan. - slightly worsened renal function today. Monitor very closely. - nephrology and hematology consulted and appreciate recommendations. - ? Underlying malignancy. - might need bone marrow aspiration which will be decided after kidney biopsy. - holding steroids - 24 hr UPEP Bilateral distal DVTs, history of atrial fibrillation on Eliquis - continue heparin drip, can into it anticoagulation if needed for renal biopsy as DVTs at distal - plan to resume Eliquis after renal biopsy Thrombocytopenia - stable, appreciate hematology consult for further workup CAD, history of ischemic cardiomyopathy with EF of 30%-and moderate MR - holding Plavix with last stent more than 10 years ago. - holding ELECTRICAL INTEGRATOR diuretics for now - -continue ELECTRICAL INTEGRATOR Crestor - holding lisinopril Depression: Fluoxetine PHARMACOLOGIC VTE PROPHYLAXIS: Apixaban hEParin CODE STATUS: No Code EXPECTED DISCHARGE DATE: 10/01/2023 I spent a total of 45 minutes coordinating, documenting, and providing care for this patient excluding time spent in the performance of separately billed services. This note was completed in part utilizing [employer] Speech Voice Recognition Software. Grammatical errors, random word insertions, pronoun errors and incomplete sentences are an occasional consequence of this system due to software limitations, ambient noise and hardware issues. Please directly address the provider for any questions or concerns about the context, text or information contained within the body of this note. * Bo Allen MD - 09/26/2023 2:28 PM EDT Images from the original note were not included. [facility] G408/A INTERVAL HISTORY: No acute overnight events Patient was seen and evaluated at bedside this morning. Denies any acute concerns and resting comfortably. Rest all other ROS were negative apart from ones mentioned in the HPI Objective Physical Exam Most Recent Vital Signs: BP: 119 mmHg/79 mmHg (09/26/23 1132) Pulse: 75 (09/26/23 0850) Temp: 36.39 C (09/26/23 1132) Resp: 14 (09/26/23 1132) SpO2: 98 % (09/26/23 1100) Constitutional: no acute distress CV: normal rate and rhythm, no murmur, gallops or rub Chest: normal respiratory effort, lungs clear to auscultation and percussion Abdomen: soft, no tenderness Extremities: no edema Neuro: alert, oriented to person, place, and time Psych: normal mood and affect Peripheral Line Left;Lower;Posterior Arm 20 Gauge (Active) Number of days: 1 Peripheral Line Lower;Posterior;Right Arm 20 Gauge (Active) Number of days: 1 STUDIES: Encounter Orders Labs and other studies reviewed with pertinent findings noted below: Latest Reference Range & Units 09/25/23 11:45 09/26/23 05:35 WBC 4.00 - 10.80 K/uL 5.98 6.90 HGB 14.0 - 16.8 g/dL 9.0 (L) 9.3 (L) HCT 40.0 - 48.4 % 28.5 (L) 29.5 (L) MCV 82.0 - 99.5 fL 112.6 112.2 PLT 140 - 400 K/uL 95 (L) 104 (L) (L): Data is abnormally low Latest Reference Range & Units 09/25/23 11:45 09/26/23 05:35 Sodium 135 - 146 mmol/L 142 144 Potassium 3.5 - 5.1 mmol/L 3.8 4.0 Chloride 98 - 107 mmol/L 109 (H) 112 (H) CO2 22 - 32 mmol/L 24 21 (L) BUN 6 - 20 mg/dL 28 (H) 28 (H) Creatinine 0.6 - 1.2 mg/dL 1.4 (H) 1.6 (H) Estimated Glomerular Filtration Rate >=60 mL/min 50 (L) 44 (L) Anion Gap 7 - 15 mmol/L 9 11 Glucose 70 - 120 mg/dL 95 93 Calcium 8.4 - 10.2 mg/dL 8.7 8.4 Magnesium 1.5 - 2.6 mg/dL 2.6 Phosphorus 2.5 - 4.8 mg/dL 2.7 2.8 (H): Data is abnormally high (L): Data is abnormally low Latest Reference Range & Units 09/25/23 18:06 [place] Free Light Chains, Serum 3.30 - 19.40 mg/L 80.05 (H) [place] Lambda Free Light Chains Ratio 0.26 - 1.65 2.50 (H) Lambda Free Light Chains, Serum 5.71 - 26.30 mg/L 31.99 (H) (H): Data is abnormally high Assessment and Plan IMPRESSION : Active Problems: Monoclonal gammopathy Acute deep vein thrombosis (DVT) of both peroneal veins (HCC) Nephrotic syndrome Stage 3b chronic kidney disease (HCC) Nephrotic range proteinuria Resolved Problems: * No resolved hospital problems. * DIFFERENTIAL AND PLAN: Leonidas Troy is a 83 year old male with a medical history as above presenting with nephrotic syndrome in setting of IgG kappa monoclonal protein. IgG kappa monoclonal protein Nephrotic syndrome, proteinuria on known CKD stage 3 Serologic positive for high GERA 2R antibiotics, suspecting membranous glomerular nephritis. - planning for renal biopsy, monitor platelets, tentatively planned with IR on Friday. Last dose ofEliquis is on 23 of September and Plavix on morning. - possible MGN vs MGRS - renal vein thrombosis ruled out with a CT scan - checking hepatitis panel, QuantiFERON test preparation for considering Rituxan. - slightly worsened renal function today. Monitor very closely. - nephrology and hematology consulted and appreciate recommendations. - ? Underlying malignancy. - might need bone marrow aspiration which will be decided after kidney biopsy. - holding steroids - 24 hr UPEP Bilateral distal DVTs, history of atrial fibrillation on Eliquis - continue heparin drip, can into it anticoagulation if needed for renal biopsy as DVTs at distal - plan to resume Eliquis after renal biopsy Thrombocytopenia - stable, appreciate hematology consult for further workup CAD, history of ischemic cardiomyopathy with EF of 30%-and moderate MR - holding Plavix with last stent more than 10 years ago. - holding ELECTRICAL INTEGRATOR diuretics for now - -continue ELECTRICAL INTEGRATOR Crestor - holding lisinopril Depression: Fluoxetine PHARMACOLOGIC VTE PROPHYLAXIS: Apixaban hEParin CODE STATUS: No Code EXPECTED DISCHARGE DATE: 10/01/2023 I spent a total of 45 minutes coordinating, documenting, and providing care for this patient excluding time spent in the performance of separately billed services. This note was completed in part utilizing [employer] Speech Voice Recognition Software. Grammatical errors, random word insertions, pronoun errors and incomplete sentences are an occasional consequence of this system due to software limitations, ambient noise and hardware issues. Please directly address the provider for any questions or concerns about the context, text or information contained within the body of this note. * Neno Alberto MD - 09/26/2023 8:49 AM EDT Images from the original note were not included. PROGRESS NOTE - Nephrology [facility] [place]-[address] [address] Name: Leonidas Troy Location: [facility] Date: 09/26/2023 Time: 8:49 AM BACKGROUND 83 year old Male - HTN, CAD (Hx of PCIs) on plavix, AF on DOAC, HFpEF with moderate MR, PPM-ICD insertion Mild vascular dementia Progressive slow CKD over past 2 years - Transferred from [facility] in view of nephrotic syndrome Hx of nephrotic syndrome 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 13gm proteinuria, serum albumin mid to high 2's. Plavix/Apixaban last dose 09/23, currently on heparin infusion SUBJECTIVE: Patient is doing well Asymptomatic Only concerned with hospital stay length, however willing to stay until medically fit OBJECTIVE: Vital Signs last 24 Hours: Systolic BP: Most Recent Systolic BP Av.4 mmHg Min: 114 mmHg Max: 130 mmHg Temperature: Most Recent Temperature Av.6 C Min: 36.06 C Max: 37.22 C Pulse: Pulse Av.6 Min: 75 Max: 87 Respirations: Resp Av Min: 18 Max: 18 SpO2: SpO2 Av.3 % Min: 96 % Max: 99 % Patient is laying in his bed, looks tired but not in acute distress HEENT; No pallor conjunctiva or yellowish sclera, JVP not distended Lung; bilateral breath sounds, no added sounds Pericardium; ICD/PPM to left shoulder. RRR, pansystolic murmur Abdomen; soft, non tender, not distended MSK; LL edema +2, no rashes Neuro; conscious alert oriented, mild hearing impairment, no facial asymmetry, moving arms freely LABS: Latest Reference Range & Units 08/15/23 11:48 09/19/23 14:24 09/25/23 11:45 09/25/23 18:06 09/26/23 05:35 Sodium 135 - 146 mmol/L 143 142 142 144 Potassium 3.5 - 5.1 mmol/L 4.1 4.8 3.8 4.0 Chloride 98 - 107 mmol/L 109 (H) 108 (H) 109 (H) 112 (H) CO2 22 - 32 mmol/L 26 25 24 21 (L) BUN 6 - 20 mg/dL 30 (H) 29 (H) 28 (H) 28 (H) Creatinine 0.6 - 1.2 mg/dL 1.5 (H) 1.6 (H) 1.4 (H) 1.6 (H) Estimated Glomerular Filtration Rate >=60 mL/min 45 (L) 42 (L) 50 (L) 44 (L) Anion Gap 7 - 15 mmol/L 8 9 9 11 Glucose 70 - 120 mg/dL 78 95 95 93 Calcium 8.4 - 10.2 mg/dL 8.8 9.2 8.7 8.4 Magnesium 1.5 - 2.6 mg/dL 2.6 Phosphorus 2.5 - 4.8 mg/dL 2.7 2.8 Protein 6.0 - 8.3 g/dL 4.7 (L) 5.3 (L) 5.1 (L) Folic Acid >4.5 ng/mL 9.2 Haptoglobin 30 - 200 mg/dL 79 LD <=250 U/L 337 (H) WBC 4.00 - 10.80 K/uL 6.88 5.98 6.90 HGB 14.0 - 16.8 g/dL 10.8 (L) 9.0 (L) 9.3 (L) PLT 140 - 400 K/uL 106 (L) 95 (L) 104 (L) Reticulocyte Percent 0.80 - 1.90 % 2.75 (H) IgG 700 - 1,600 mg/dL 515 (L) IMAGING: Reviewed IMPRESSION: Nephrotic syndrome - Features of membranous/MGRS - Presentation at current age raise suspicion for underlying malignancy - On heparin bridging in view of high CHADVASC PLAN: - No active intervention for now - Will keep off steroids - Kidney Bx planned on Friday, giving time foe plavix effect to wean - Will continue follow up Patient was seen and examined, discussed with Dr Lester Plan of care explained to the patient, he showed comprehension and agreement Neno Alberto MD Nephrology Fellow Associated attestation - Susi Lester MD - 09/26/2023 3:28 PM EDT I saw and evaluated the patient today. I have reviewed the trainee note and agree. documented in this encounter H&P Notes * Pankaj Gibson DO - 09/25/2023 12:08 PM EDT HISTORY AND PHYSICAL EXAMINATION - Medicine [address] [address] Name: Leonidas Troy [address] Date: 09/25/2023 Time: 12:09 PM [place] [id number] PRESENTING PROBLEM: Transfer [facility] due to JOHN on CKD, c/f membranous nephropathy, Light chain disease needing kidney bx. 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 Hx obtained from pt and chart review (physical chart from [facility]). PT has been having worsening decompensated HF with admission at [facility] last month and was found to have nephrotic range proteinuria of 11g. He was agressively diuresed with plan for ongoing workup and treatment for nephrotic syndrome planned as outpatient. He was d/c home back to facility with lisinopril 5mg, Torsemide 40mg daily, spironolactone 12.5mg. On 09/23 he presented to [facility] ER after patient was found to have confusion and hypotension into the 70s SBP at facility. In the ER he presented with SBP of 95 and after albumin infusion and resuscitation he responded to 110s-120s SBP. His Cr on arrival was 1.8 with resolution to 1.5 which is his baseline. During his stay he underwent lab work up that showed elevated B2 microglobulin, Uprotein 24 that was 13g, and elevated light chains, + phospholipase A2. His diuretics were held given his hypotensive presentation and hsi plavix was stopped for preparation of needing kidney bx (last dose per [facility] paper chart was AM of 09/23) and his eliquis was held (last dose 09/23 PM) and started on hep gtt given permanent atrial fib. Nephrology saw patient at [facility] and recommended pt to need kidney bx for further dx before starting treatment. He was transferred to [facility] today (09/25) and I saw patient bedside. He was resting comfortably in NAD and no complaints, except for that he still has some swelling in his legs. He is rather anxious toget his renal biopsy done. Attempted to call sonLuis via number in chart, however, said this call can not go through. On arrival: Vitals: Afebrile, BP 124/77, HR 82, RA 99% Labs were notable for Na 142, K 3.8, BUN 28, Cr 1.4, calcium 8.7, Mg 2.6, phos 2.7, WBC 6, Hb 9.0, plt 95 Social situation: Lives at [facility], states he has a living will that says DNR/DNI, familycontact is Luis Troy (son) Subjective ROS: Review of systems is complete and negative unless otherwise stated above in the HPI. PAST MEDICAL HISTORY: has a past medical history of AICD (automatic cardioverter/defibrillator) present, Coronary artery disease involving [place] coronary artery of [place] heart without angina pectoris, Dyslipidemia (01/13/2023), History of stroke, Pacemaker, and Paroxysmal atrial fibrillation (HCC). PAST SURGICAL HISTORY: Past Surgical History: Procedure Laterality Date PACEMAKER-DEFIBRILLATOR ELECTRODE INSERT, SINGLE SACROILIAC JOINT INJECT W/GUIDANCE 10/01/2021 INJECTION SACROILIAC JOINT performed by Jhon Ngo, at [facility] SACROILIAC JOINT INJECT W/GUIDANCE 06/25/2023 INJECTION SACROILIAC JOINT performed by Jhon Ngo, DO at OR [facility] FAMILY HISTORY: No family history on file. SOCIAL HISTORY: Social History Tobacco Use Smoking status: Never Smokeless tobacco: Never Vaping Use Vaping Use: Never used Substance Use Topics Alcohol use: Never Drug use: Never ELECTRICAL INTEGRATOR MEDICATIONS: Prior to admission medications have been reviewed. ALLERGIES: Patient has no known allergies. Objective PHYSICAL EXAMINATION: Most Recent Vital Signs: BP: 124 mmHg/77 mmHg (09/25/23 1040) Pulse: Temp: 36.06 C (09/25/23 1040) Resp: 18 (09/25/23 1040) SpO2: 99 % (09/25/23 1040) Constitutional: no acute distress, resting comfortably in bed, speaking in full sentences HENT: NCAT, MMM Eyes: sclera and conjunctiva normal Neck: normal range of motion CV: normal rate and rhythm, no murmur, gallops or rub Chest: normal respiratory effort, lungs clear to auscultation Abdomen: soft, bowel sounds normal, no tenderness Extremities: no clubbing, cyanosis, or edema, otherwise grossly normal, warm, and dry Psych: normal mood and affect STUDIES: Labs and other studes reviewed with pertinent findings noted below: Hgb: 9 WBC: 6 Platelets: 95 Cr: 1.4 (baseline 1.5) K: 3.8 M.6 Ca: 8.7 Phos: 2.7 Assessment & Plan IMPRESSION: Active Problems: * No active hospital problems. * Resolved Problems: * No resolved hospital problems. 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 #JOHN on CKD #nephrotic syndrome #elevated light chain Pt with 11g and 13g 24 hour protein that was collected two days ago and a month ago, with labs showing elevated light chains and on going worsening edema, concerning for membranous nephropathy with possible underlying monoclonal gammaopathy of renal significance. -admit with tele given heart history -Nephrology consult, appreciate recs -hold ELECTRICAL INTEGRATOR diuretics for now until BP shows can tolerate, (was profoundly hypotensive at OSH) -continue to hold eliquis and plavix (last dose 09/23 for both) in prep for kidney bx -d/w IR, given 09/23 was last dose of antiplatelet and eliquis, earliest they can schedule is Friday. -renally dose meds -daily weights -I&O -hold captain's assistant linsopril 5mg -consider hematology consult given light chain elevations; need bone marrow bx? -RFP daily -consider awan for accurate I&O #Permanent A fib CHADSVASC 7, takes eliquis ELECTRICAL INTEGRATOR, this was held on 09/23 to prep for kidney bx., currently on hep gtt. -hep gtt normogram, if can't do bx till Friday, could consider therapeutic lovenox until Friday -continue ELECTRICAL INTEGRATOR metoprolol succinate 25mg BID -telemetry #CAD #hx of ischemic CM with EF of 30% in past, most recent EF 60% in 2022 #moderate MR Hold captain's assistant plavix for kidney bx -hold ELECTRICAL INTEGRATOR diuretics(40mg torsemide 40mg, and spironolactone 12.5mg), add when BP shows it can tolerate given Hypotensive at OSH -continue ELECTRICAL INTEGRATOR cresteor 10mg qhs -hold ELECTRICAL INTEGRATOR lisinopril given JOHN #MDD Continue captain's assistant fluoxetine 10mg capsule Global: Diet: heart healthy Bowel regimen: miralax, colace PRN DVT/VTE prophylaxis: Therapeutic heparin Lines/drains/access: PIV Consultants following: nephrology, IR Code status: DNI/DNR per patient. Disposition: > 2 mn CODE STATUS: No Code EXPECTED DISCHARGE DATE: 2 days or more This patient was discussed with Dr Garcia at the time of admission. Associated attestation - Dimitry Garcia DO - 09/25/2023 6:25 PM EDT I saw and evaluated the patient today. I have reviewed the trainee note and agree. documented in this encounter Procedure Notes * Sid Anguiano PA-C - 09/30/2023 4:28 PM EDT PROCEDURE - Bone Marrow Biopsy/Aspiration - Hematology [facility]-[address] [place] [id number] Name: Leonidas Troy Location: [facility] G408/A Date: 09/30/2023 Time: 4:29 PM Bone Marrow Biopsy/Aspiration: Dr. Kennedi Augustin PRIOR TO PROCEDURE: Verify Correct Patient: Yes Verify Correct Site: Yes Verify Procedure Matches Verbalized Consent: Yes Verify Correct Position: Yes Availability of Necessary Equipment: Yes Other Healthcare Professional(s) Verbalize(s) Agreement with Timeout: Yes Anticoagulation / Antiplatelet: No PROCEDURE NOTE: Procedure: Bone marrow biopsy/aspiration Indication: paraprotein work up [employer] Air Announcer: Sid Anguiano PA-C Complication/Corrective Action: none Comments/Findings: Patient identified and verified with medical record, name, and /or . After informed consent was obtained an area was identified in the left posterior iliac crest. Usingsterile technique, the area was prepped with betadine and then infiltrated with 1% lidocaine without epinephrine. The patient specifically denied allergy to lidocaine. A bone marrow aspirate, and specimens of flow cytometry and cytogenetics were easily obtained. Bone marrow biopsy core obtained on second attempt. The patient tolerated the procedure well. A pressure dressing was applied, and the patient was advised to leave this in place for 48 hours and to keep the area dry during that period. The patient was provided with written and verbal instructions. Minimal blood loss. documented in this encounter Consult Notes * Ana Light, PT - 10/01/2023 12:20 PM EDTAssociated Order(s): ADULT PHYSICAL THERAPY CONSULT IP I, Ana Light, supervised and was present for the duration of the following evaluation. I also read, agree with, and endorse the findings of the following evaluation note by Hector Montes PT, DPT Ana Light PT, DPT [facility]/Acute Rehab [facility] GENERAL EVALUATION - Physical Therapy [address] [address] Name: Leonidas Troy Location: [facility] G408/A Date: 10/01/2023 Time: 1220 Leonidas Troy is a/an 83 year old male. Patient Status: Inpatient Insurance: Payor: MEDICARE Plan: MEDICARE A AND B Product Type: *No Product type* Payor: GENERIC COMMERCIAL Plan: GENERIC COMMERCIAL Product Type: *No Product type* Patient Seen: at bedside, nursing cleared patient for therapy Patient Identified By: Name, ID Band and Date Diagnosis: nephrotic syndrome (10/01/231219) Status of treatment: Evaluation completed (10/01/231219) Orders: PT evaluation and treatment;OOB (10/01/231219) Weight Bearing Status: Weight bearing as tolerated (10/01/231219) Precautions: Alarms;Falls;Safety (10/01/231219) Total Treatment Time--free text: (10/01/231219) Past Medical History: Past Medical History: Diagnosis Date AICD (automatic cardioverter/defibrillator) present Coronary artery disease involving [place] coronary artery of [place] heart without angina pectoris Dyslipidemia 01/13/2023 History of stroke 2007 Pacemaker Paroxysmal atrial fibrillation (HCC) Past Surgical History: Past Surgical History: Procedure Laterality Date IR BIOPSY 09/29/2023 PACEMAKER-DEFIBRILLATOR ELECTRODE INSERT, SINGLE SACROILIAC JOINT INJECT W/GUIDANCE 10/01/2021 INJECTION SACROILIAC JOINT performed by Jhon Ngo DO at OR [facility] SACROILIAC JOINT INJECT W/GUIDANCE 06/25/2023 INJECTION SACROILIAC JOINT performed by Jhon Ngo DO at OR [facility] Subjective: Pt awake in bed, agreeable to PT. Social History/Disposition Lives with: Caregiver / Attendant (10/01/231219) Assistance available: Yes (10/01/231219) Dwelling type: Assisted living facility (10/01/231219) Entry steps: None (10/01/231219) Inside steps: None (10/01/231219) Bedroom location: 1st floor (10/01/231219) Bath location: 1st floor full bath (10/01/231219) Prior Level of Function Reported by: Patient (10/01/231219) Ambulation: Ambulatory with device (10/01/231219) Ambulatory Device: Cane (rolling walker for longer distances) (10/01/23 122) Devices at home: Rolling walker;Straight cane (10/01/231219) Observations Consciousness: Alert (10/01/231219) Orientation: Person;Time;Situation (10/01/231219) Psychosocial: Patient can communicate basic needs;Patient can converse in a social setting (10/01/231219) Other Findings: Yes (10/01/231219) Findings: Light touch sensation (10/01/231219) Light Touch Sensation Results: Intact;LLE;RLE (10/01/231219) Sitting Posture: Forward head;Rounded shoulders (10/01/231219) Standing Posture: Forward head;Rounded shoulders (10/01/231219) Pain: No complaints of pain Range of Motion Range of Motion: WNL (10/01/231219) Strength Assessment Strength Assessment: Deficits noted (10/01/231219) WNL, except: LLE;RLE (10/01/231219) LLE: Hip;Knee;Ankle;4/5 (10/01/231219) RLE: Hip;Knee;Ankle;4/5 (10/01/231219) P.T. Bed Mobility Supine-Sit: Supervision (10/01/231219) Transfers Sit-Stand: Supervision (10/01/231219) Stand-Sit: Supervision (10/01/231219) Ambulation: Distance ambulated (feet): 150 + 20 + 20 Assistive Device: Rolling walker Assist: Minimal Assistance 1 time (due to loss of balance), Contact Guard for remaining ambulation Balance Sit (Static): Fair (10/01/231219) Sit (Dynamic): Fair (10/01/231219) Stand (Static): Fair (to fair-) (10/01/231219) Stand (Dynamic): Fair (- to poor+) (10/01/231219) Patient and or Family Goal(s): to get well Patient Education Review of Precautions: Safety;Fall (role of PT) (10/01/231219) Safety Awareness: Patient verbalizes insight of current deficits;Patient demonstrates carryover of insight during functional tasks;Patient can communicate basic needs (10/01/231219) Preferred learning method: Combination (10/01/231219) Barriers to learning: Medical Status (10/01/231219) Method of Education: Verbalized to patient;Patient demonstrated task (10/01/231219) Topic of Education: Safety with mobility, Goals/plan of care, Use of assistive device, and Fall prevention Method of Education: Verbal discussion and explanation provided to pt: verbalized understanding andor agreement of this information and demonstrated the exercise and or task Treatment Provided: Gait Training 10 minutes: gait training with rolling walker Evaluation Moderate Complexity 13 minutes - 70452: Patient was cooperative and pleasant during treatment session. Moderate complexity evaluation performed and 1-2 personal factors or comorbidities were identified that will impact plan of care, including cardiac history and history of CVA. Patient presents with limitations in strength, bed mobility, transfers, gait, balance, endurance, and safety,which will impact plan of care. These limitations will be addressed by the goals set for this patient. Alarm Status Patient positioned in: Chair (10/01/231219) With: Pressure pad alarm intact and functioning and call zambrano in reach (cord plugged into wall) (10/01/231219) Treatment Status: Treatment at bedside (10/01/231219) Goals: Goals: Demonstrate Bed Mobility with: modified independent Demonstrate Sit to/from Stand Transfers with: modified independent Demonstrate Ambulation: assistive device: least restrictive AD, distance in feet: 250 , modified independent Increase Strength of: B/L LE by 1/2 muscle grade Increase Balance: dynamic standing balance to fair+ Increase Safety: with all functional mobility Time Frame: 7-8 visits Assessment: Pt is 83 year old male presenting with nephrotic syndrome. Pt seen on this date for initial evaluation. Prior to admission, pt reports living at an assisted living facility with assistance available if needed. Pt reports receiving therapy while at the assisted living facility. Pt reports ambulating independently with a cane for shorter distances and rolling walker for community distances. During session, pt was cooperative and pleasant. Upon initial evaluation, pt was able to perform bed mobility with supervision, two sit to stand transfers from bed and toilet with supervision, and ambulated 150 ft with contact guard and rolling walker. During ambulation patient experienced one loss of balance, due to using one upper extremity to itch his nose and taking hand off of rolling walker. This loss of balance resulted in minimal assistance from therapist to help correct and regain balance. Following evaluation, patient participated in further gait training with the rolling walker, ambulating a total of 20 + 20 ft to and from the bathroom with contact guard. Pt also required contact guard for sit to/from stand transfers. Following session, pt positioned in chair with alarm andcall zambrano in reach. Cord plugged into call zambrano system. Pt presents with deficits in strength, endurance, mobility, ambulation, and balance, all of which are currently negatively impacting pt's quality of life. Pt would continue to benefit from skilled PT services while inpatient at hospital to reach established goals and address deficits. Please consider post-acute care services which may include home health, fdc, outpatient therapy or inpatient rehabilitation. The level of care will be determined in collaboration with patient, family/caregiver and care team members. . All needs met. Deficits requiring P.T. treatment needs: Safety;Mobility;Balance;Weakness;Endurance;Lower extremitystrength (10/01/231219) Equipment Needs: Equipment needs: (TBD) (10/01/231219) Treatment Plan: Bed mobility training, Transfer training, Gait training, Strengthening exercises: B/L LE, Balance activities, and Educate on safety with functional mobility Anticipated Frequency (on eval): 1 to 3 times per week (10/01/231219) AM PAC Score with Stairs: 17 A portion of this AM-PAC assessment not scored based on functional assessment; rather clinical decision making utilized based on current findings and/or prior level of function. Please refer to future AM-PAC calculations of functional ability as they become available. * Elisabeth Johnson, MELISSAR/Vania - 09/30/2023 2:45 PM EDTAssociated Order(s): ADULT OCCUPATIONAL THERAPY CONSULT IP GENERAL EVALUATION - Occupational Therapy [address] [address] Name: Leonidas Troy Location: [facility] G408/A Date: 09/30/2023 Time: 2:45 PM Leonidas Troy is a 83 year old male. Patient Status: Inpatient Insurance: Payor: MEDICARE Plan: MEDICARE A AND B Product Type: *No Product type* Payor: GENERIC COMMERCIAL Plan: GENERIC COMMERCIAL Product Type: *No Product type* Patient Seen: at bedside, nursing cleared patient for therapy Patient Identified By: Name, ID Band and Date Diagnosis: nephrotic syndrome (09/30/231444) Status of treatment: Evaluation completed (09/30/231444) Orders: OT evaluation and treatment (09/30/231444) Weight Bearing Status: Weight bearing as tolerated (09/30/231444) Precautions: Alarms;Falls;Safety (09/30/231444) Total Treatment Time: 11 (09/30/231444) Past Medical History: Past Medical History: Diagnosis Date AICD (automatic cardioverter/defibrillator) present Coronary artery disease involving [place] coronary artery of [place] heart without angina pectoris Dyslipidemia 01/13/2023 History of stroke 2007 Pacemaker Paroxysmal atrial fibrillation (HCC) Past Surgical History: Past Surgical History: Procedure Laterality Date PACEMAKER-DEFIBRILLATOR ELECTRODE INSERT, SINGLE SACROILIAC JOINT INJECT W/GUIDANCE 10/01/2021 INJECTION SACROILIAC JOINT performed by Jhon Ngo DO at OR [facility] SACROILIAC JOINT INJECT W/GUIDANCE 06/25/2023 INJECTION SACROILIAC JOINT performed by Jhon Ngo DO at OR [facility] Social History/Disposition Lives with: Caregiver / Attendant (09/30/231444) Assistance available: Yes (09/30/231444) Dwelling type: Assisted living facility (09/30/231444) Entry steps: None (09/30/231444) Inside steps: None (09/30/231444) Bedroom location: 1st floor (09/30/231444) Bath location: 1st floor full bath (09/30/231444) Prior Level of Function Reported by: Patient (09/30/231444) Ambulation: Ambulatory with device (09/30/231444) Ambulatory Device: Rolling walker (and cane) (09/30/231444) Grooming: Independent (09/30/231444) Bathing: Independent (09/30/231444) Dressing: Independent (09/30/231444) Feeding: Independent (09/30/231444) Toileting: Independent (09/30/231444) Meal Prep: Assistance (09/30/231444) Homemaking: Assistance (09/30/231444) Durable Medical Equipment at home: Rolling walker;Straight cane (09/30/231444) Subjective: Pt pleasant and cooperative, agreeable to OT evaluation. Pain: No complaints of pain Observations Consciousness: Alert (09/30/231444) Orientation: Oriented times 4 (09/30/231444) Psychosocial: Patient can communicate basic needs;Patient can converse in a social setting (09/30/231444) Sitting posture: Forward head;Rounded shoulders (09/30/231444) Standing posture: Forward head;Rounded shoulders (09/30/231444) Safety awareness: The Patient verbalizes insight of current deficits. (09/30/231444) Other Findings Endurance: Fair (09/30/231444) Light touch sensation: LUE;RUE;Intact (09/30/231444) Coordination: LUE;RUE;Gross motor;Fine motor;Intact (09/30/231444) Current Functional Status: Bilateral Upper Extremity Range of Motion: WNL (09/30/231444) Strength Assessment: (B 4/5) (09/30/231444) Self Care Toileting: Moderate Assistance (brief management) (09/30/231444) Dressing Upper Body: Contact Guard (gown) (09/30/231444) Lower Body: Contact Guard (socks) (09/30/231444) Functional Ambulation Assistive Device: Rolling walker (09/30/231444) Distance in feet:: 10 (+ 10) (09/30/231444) Level of Assistance: Contact Guard (09/30/231444) Bed Mobility Supine-Sit: Contact Guard (09/30/231444) Sit-Supine: Contact Guard (09/30/231444) OT Transfers Sit-Stand: Contact Guard (09/30/231444) Stand-Sit: Contact Guard (09/30/231444) Toilet: Contact Guard (09/30/231444) Balance Sit (Static): Fair (09/30/231444) Sit (Dynamic): Fair (09/30/231444) Stand (Static): Fair (-) (09/30/231444) Stand (Dynamic): Fair (-) (09/30/231444) Alarm Status Patient positioned in: Bed (09/30/231444) With: Bed alarm intact and functioning and call zambrano in reach (09/30/231444) Patient and Family Goals: to get well Patient Education Education Topic: Role of OT;Plan of care goals (09/30/231444) Review of Precautions: Safety;Fall (09/30/231444) Method of Education: Verbalized to patient (09/30/231444) Education Provided to: Patient (09/30/231444) Response to Education: Receptive and agreeable to education (09/30/231444) Barriers to learning: None (09/30/231444) Preferred learning method: Combination (09/30/231444) Treatment Provided: Evaluation Moderate Complexity 11 minutes - 55218: Patient was cooperative and pleasant during treatment session. Moderate complexity evaluation performed and 3-5 activity limitations were identified, including ADL deficit, functional mobility deficit, bed mobility deficit, decreased strength, decreased endurance, and impaired balance. Minimal or moderate modification of the functional task was necessary to complete the evaluation. Assessment: Pt is an 83 yr old male admitted to the hospital on 09/25 for nephrotic syndrome. Pt lives at an [facility] and completed ADL tasks and functional mobility with independence using rolling walkerand cane. Pt received assistance for IADL tasks. Pt seen for OT evaluation on this date. Pt supine in bed at start of session. Pt completed bed mobility of supine to sit with contact guard. Pt completed UB dressing of gown and LB dressing of socks with contact guard. Pt then completed sit to stand transfer from bed and functional mobility of 10 feet from bed to commode in bathroom using rolling walker with contact guard for steadying. Pt completed toilet task of brief management with mod A, andtoilet transfer, functional mobility of 10 feet from bathroom to bed using rolling walker, and bed mobility of sit to supine with contact guard. Pt supine in bed with needs met. Pt presents with deficits in strength, balance, endurance, functional transfers, functional mobility, and ADL task completion. Pt would benefit from continued OT to work on strength and endurance in order to maximize independence with self care ADL tasks. When medically appropriate anticipate pt would benefit from rehabto maximize safety and independence with ADL tasks and functional mobility. Please consider post-acute care services which may include home health, fdc, outpatient therapy or inpatient rehabilitation. The level of care will be determined in collaboration with patient, family/caregiver and care team members. Deficits Requiring O.T. Treatment: Deficits requiring O.T. treatment needs: ADL/self-care;Balance;Endurance;Functional mobility;Safety;Upper extremity strength;Weakness (09/30/231444) Goals: ADLs Demonstrate UB dressing task with modified independence Demonstrate LB dressing task with modified independence Demonstrate UB bathing task with modified independence Demonstrate LB bathing task with modified independence Demonstrate toilet task with contact guard Bed Mobility Demonstrate rolling L and R with modified independence Demonstrate supine to sit with modified independence Demonstrate sit to supine with modified independence Functional Transfers Demonstrate sit to stand transfer with modified independence Demonstrate bed to chair transfer with modified independence Demonstrate transfers onto/off of commode with modified independence Functional Mobility Demonstrate functional mobility for ADL task completion with modified independence using least restrictive device Balance Improve static/dynamic seated balance for ADL task completion to a grading of good Improve static/dynamic standing balance for ADL task completion to a grading of fair + Strength Improve bilateral UE strength by 1/2 grade Goal Time Frame: 8 visits Treatment Plan: Safety, Bed mobility training, Functional Ambulation, Transfer training, Upper extremity strengthening, Balance activities, ADL training, and Endurance Anticipated Frequency (on eval): 1 to 3 times per week (09/30/231444) AM-PAC Help From Another Person Eating Meals: A little (09/30/231444) Help From Another Person Taking Care of Personal Grooming: A little (09/30/231444) Help From Another Person To Put On/Take Off Upper Body Clothing: A little (09/30/231444) Help From Another Person To Put On/Take Off Lower Body Clothing: A little (09/30/231444) Help From Another Person Toileting: A lot (09/30/231444) Help From Another Person Bathing: A little (09/30/231444) OT AM-PAC Score: 17 (09/30/231444) OT AM-PAC t-Scale Score: 37.26 (09/30/231444) HLM (Highest Level of Mobility) Goal: Level 6 walk 10 steps or more (09/29/23 0839) A portion of this AM-PAC assessment not scored based on functional assessment; rather clinical decision making utilized based on current findings and/or prior level of function. Please refer to future AM-PAC calculations of functional ability as they become available. 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 13gm proteinuria, serum albumin mid to high 2's. Plavix/Apixaban last dose 09/23, currently on heparin infusion - Patient feels okay No chest pain No nausea/vomiting Although fasting today, good oral intake - No skin rash No weight loss Worsening ankle swelling No hemoptysis No new joint pain PAST MEDICAL HISTORY: Past Medical History: Diagnosis Date AICD (automatic cardioverter/defibrillator) present Coronary artery disease involving [place] coronary artery of [place] heart without angina pectoris Dyslipidemia 01/13/2023 History of stroke 2007 Pacemaker Paroxysmal atrial fibrillation (HCC) PAST SURGICAL HISTORY: Past Surgical History: Procedure Laterality Date PACEMAKER-DEFIBRILLATOR ELECTRODE INSERT, SINGLE SACROILIAC JOINT INJECT W/GUIDANCE 10/01/2021 INJECTION SACROILIAC JOINT performed by Jhon Ngo DO at OR [facility] SACROILIAC JOINT INJECT W/GUIDANCE 06/25/2023 INJECTION SACROILIAC JOINT performed by Jhon Ngo DO at OR [facility] ALL[facility]GIES: Patient has no known allergies. FAMILY HISTORY: No family history on file. SOCIAL HISTORY: Social History Tobacco Use Smoking status: Never Smokeless tobacco: Never Vaping Use Vaping Use: Never used Substance Use Topics Alcohol use: Never Drug use: Never ROS: Denies any other symptoms, all other ROS are negative. PHYSICAL EXAMINATION: Vital Signs Last 24 Hours: Systolic BP: Most Recent Systolic BP Av mmHg Min: 124 mmHg Max: 130 mmHg Temperature: Most Recent Temperature Av.2 C Min: 36.06 C Max: 36.39 C Pulse: Pulse Av Min: 87 Max: 87 Respirations: Resp Av Min: 18 Max: 18 SpO2: SpO2 Av % Min: 99 % Max: 99 % Patient is laying in his bed, looks tired but not in acute distress HEENT; No pallor conjunctiva or yellowish sclera, JVP not distended Lung; bilateral breath sounds, no added sounds Pericardium; ICD/PPM to left shoulder. RRR, pansystolic murmur Abdomen; soft, non tender, not distended MSK; LL edema +3n rashes Neuro; conscious alert oriented, mild hearing impairment, no facial asymmetry, moving arms freely LABS: Latest Reference Range & Units 06/26/23 10:21 07/03/23 10:40 07/24/23 11:04 08/12/23 16:16 08/15/23 11:48 09/19/23 14:24 09/25/23 11:45 Sodium 135 - 146 mmol/L 139 140 142 143 142 142 Potassium 3.5 - 5.1 mmol/L 4.2 4.3 4.0 4.1 4.8 3.8 Chloride 98 - 107 mmol/L 108 (H) 112 (H) 110 (H) 109 (H) 108 (H) 109 (H) CO2 22 - 32 mmol/L 21 (L) 20 (L) 22 26 25 24 BUN 6 - 20 mg/dL 36 (H) 34 (H) 43 (H) 30 (H) 29 (H) 28 (H) Creatinine 0.6 - 1.2 mg/dL 1.8 (H) 1.5 (H) 2.2 (H) 1.5 (H) 1.6 (H) 1.4 (H) Anion Gap 7 - 15 mmol/L 10 8 10 8 9 9 Glucose 70 - 120 mg/dL 93 91 90 78 95 95 Calcium 8.4 - 10.2 mg/dL 8.8 8.8 8.7 8.8 9.2 8.7 Magnesium 1.5 - 2.6 mg/dL 2.6 Phosphorus 2.5 - 4.8 mg/dL 2.7 Protein 6.0 - 8.3 g/dL 4.7 (L) 5.3 (L) 5.1 (L) Folic Acid >4.5 ng/mL 9.2 WBC 4.00 - 10.80 K/uL 9.32 6.88 5.98 HGB 14.0 - 16.8 g/dL 11.0 (L) 10.8 (L) 9.0 (L) PLT 140 - 400 K/uL 86 (L) 106 (L) 95 (L) Albumin 3.8 - 5.0 g/dL 2.7 (L) 3.1 (L) 3.4 (L) IgA 70 - 400 mg/dL 141 IgG 700 - 1,600 mg/dL 515 (L) IgM 40 - 230 mg/dL 36 (L) Protein, Urine Negative mg/dL >300 ! Bacteria, Urine 0 - 25 /HPF 51-100 ! WBC, Urine 0 - 2 /HPF 0-2 RBC, Urine 0 - 2 /HPF 50+ ! Hyaline, Cast, Urine None /LPF 5-9 ! IMAGING: Reviewed IMPRESSION: Nephrotic syndrome - Features of membranous/MGRS - presentation at current age raise suspicion for underlying malignancy PLAN: - Kidney Bx planned for Friday 5 days off plavix - Hematology evaluation; BMA to be decided after kidney Bx - Although patient anticoagulated, consider renal vein imaging in case of flank pain/hematuria - Keep off steroids, likely to start following Bx - Hepatitis/Quantiferon - Ultimately will need age-appropriate screening Patient was seen and examined with Dr Watson Plan of care explained to the patient, he showed comprehension and agreement Discussed with primary attending Neno Alberto MD Nephrology Fellow Associated attestation - Dorcas Watson MD - 09/25/2023 6:25 PM EDT I saw and evaluated the patient today. I have reviewed the trainee note and agree.Elderly gentlemant[facility] with 11gm proteinuria, known ckd stage 3, serology positive for high PLA2R ab 447, suspecting membranous GN. He also has paraproteinemia--M spike on SPEP, IgG kappa on serum ROCIO. Needs hematology on board and a renal biopsy to look for MGN vs MGRS. Suggest to get CT non con to look for RVT. Also check for Hepatitis B and C Serology along with Quantiferon test as a preparation for considering treatment with Rituxan.renal biopsy postponed till Friday due to being on Plavix andApixaban.Suggest checking for PSA, and a chest Xray. Stable renal function otherwise, continue to monitor closely. Will continue to follow with you. 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, elevated light chains, assistance with further work up Subjective PAST HISTORY: Past Medical History: Past Medical History: Diagnosis Date AICD (automatic cardioverter/defibrillator) present Coronary artery disease involving s[place] coronary artery of s[place] heart without angina pectoris Dyslipidemia 01/13/2023 History of stroke 2007 Pacemaker Paroxysmal atrial fibrillation (HCC) Past Surgical History: Past Surgical History: Procedure Laterality Date PACEMAKER-DEFIBRILLATOR ELECTRODE INSERT, SINGLE SACROILIAC JOINT INJECT W/GUIDANCE 10/01/2021 INJECTION SACROILIAC JOINT performed by Jhon Ngo DO at OR [facility] SACROILIAC JOINT INJECT W/GUIDANCE 06/25/2023 INJECTION SACROILIAC JOINT performed by Jhon Ngo DO at OR [facility] Social History: Social History Tobacco Use Smoking status: Never Smokeless tobacco: Never Vaping Use Vaping Use: Never used Substance Use Topics Alcohol use: Never Drug use: Never Family History: No family history on file. Current Hospital Medications: Note that completed medications (per the MAR) continue to display for 24 hours. Ordered medicationsto be given in the future also display. Current Facility-Administered Medications Medication Dose Route Frequency Provider Acetaminophen (Tylenol) tab 650 mg 650 mg Oral Q6H PRN Pankaj Gibson, DO Docusate Sodium (Colace) cap 100 mg 100 mg Oral Daily PRN Pankaj Gibson, DO Ferrous Sulfate (Feosol) tab 325 mg 325 mg Oral With meals Pankaj Gibson, DO [START ON 09/26/2023] FLUoxetine (PROzac) cap 10 mg 10 mg Oral Daily(AM) Pankaj Gibson, DO hEParin 1000 UNIT/ML inj 1,600 Units 15 Units/kg IV Push PRN Pankaj Gibson, DO hEParin 1000 UNIT/ML inj 3,100 Units 30 Units/kg IV Push PRN Pankaj Gibson, DO hEParin 25,000 units in 250 mL (aPTT-Cardiac) infusion 0-30 Units/kg/hr Intravenous Titrate Pankajkeenan RobisonGibson, DO melatonin tab 3 mg 3 mg Oral HS PRN Pankaj Gibson, DO metoprolol succinate XL (toPROL XL) tab 25 mg 25 mg Oral BID(AM/PM) Pankajkeenan Gibson, DO Polyethylene Glycol 3350 (Miralax) oral powder 17 g 1 Packet Oral Daily PRN Pankajkeenan RobisonGibson, DO [START ON 09/26/2023] rosuvastatin (Crestor) tab 10 mg 10 mg Oral Daily(AM) Pankajkeenan RobisonGibson, DO sodium chloride 0.9 % flush/inj 3 mL 3 mL IV Push PRN Dimitryasa Garcia, DO Allergies: Patient has no known allergies. 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 He was found to have worsening renal function and studies concerning for monoclonal gammopathy. He was transferred to [facility] for renal biopsy with concern for MGRS and hematology was consulted for evaluation and management of his gammopathy. The patient was initially admitted to [facility] in August 2023 with decompensated heart failure requiring aggressive diuresis. At that time, he was found to have nephrotic range proteinuria. Upon further work-up of the nephrotic range proteinuria, he had immunoglobulin studies which were concerning for an M spike. He was discharged back to his facility with an increased amount diuretic therapy with planned outpatient follow-up with hematology. On 09/23/2023, he was found to have confusion and was hypotensive into the 70s systolic. Upon presentation to the ED, his systolic blood pressure was 95 and he had 2 albumin infusions with subsequentimprovement of his blood pressure. His creatinine on arrival was 1.8. His diuretics were held and Lasix was stopped. He was also found to have LE DVTs. He then was transferred to [facility] for inpatient renal biopsy. Patient is a poor historian, thus obtaining a history was challenging. He expressed frustration about not knowing when his renal biopsy will be and focused on this frustration. He himself has never had a blood clot in the past. Has not been moving around much recently. He denies having shortness ofbreath, pain in his legs, chest pain. Social: Lives in an assisted living ([facility]) alone. Uses a walker to get around. His medical decision maker would be his son, Luis. Family History: He did note that he has no known family history of blood disorder, including blood clot. He had 1 sibling with cancer but he is unsure what it was. Hospital Note 09/23/23: (1) Hypotension: diuretics on hold currently; has had 2 albumin doses; -continue to hold diuretics -periodic albumin infusion reasonable >check orthostatics -strict I/O (2) Primary membranous nephropathy with nephrotic syndrome: consider him at high risk for renal progression d/t creatinine level/ CKD progression recently, hypoalbuminemia (as low as 2.2 last admission; currently 2.9), and concern for underlying light chain restricted disease. would normally recommend cyclophosphamide w/ glucocorticoids w/ high risk primary MN though rituximab may be better tolerated in this case; >>w/ complication of possible light chain restricted disease recommend IF FAMILY/PT ok w/ biopsy, transfer [place] [facility] [place] in pt on anticoagulation w/ chronic thrombocytopenia and for hematology input; he will need a heparin bridage which is not feasible as an outpatient; I discussed b iopsy briefly w/ ptand he is open to it though would not want him consenting to it w/o input from family. have contacted son only yesterday as OP w/ concerns this pt may need renal bx. 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 >needs OP renal f/u REVIEW OF SYSTEMS: ROS obtained and negative other than above. Objective PHYSICAL EXAMINATION: Most Recent Vital Signs: BP: 124 mmHg/77 mmHg (09/25/23 1040) Pulse: Temp: 36.06 C (09/25/23 1040) Resp: 18 (09/25/23 1040) SpO2: 99 % (09/25/23 104) Vital Signs Last 24 Hours: Systolic BP: Most Recent Systolic BP Av mmHg Min: 124 mmHg Max: 124 mmHg Temperature: Most Recent Temperature Av.06 C Min: 36.06 C Max: 36.06 C Pulse: No data recorded Respirations: Resp Av Min: 18 Max: 18 SpO2: SpO2 Av % Min: 99 % Max: 99 % Constitution: Elderly male, well nourished, non-toxic appearing, lying in bed HEENT: Normocephalic, atraumatic, nares patent without discharge, mucus membranes moist Eyes: Pupils equal, sclera and conjunctiva clear Cardiovascular: Regular rate and rhythm, no murmurs appreciated Chest: Good air movement bilaterally, clear breath sounds bilaterally, no wheezing, rales, or rhonchi Extremities: Moving all extremities, well-perfused, trace pitting edema up to knees noted Skin: Warm, dry, intact, no rashes appreciated Neurologic: Alert, motor and sensory grossly intact Psychiatric: Frustrated throughout history and physical exam LABS: Labs reviewed as indicated below: 09/25/23 11:45 WBC 5.98 HGB 9.0 (L) HCT 28.5 (L) MCV 112.6 PLT 95 (L) 09/25/23 11:45 Sodium 142 Potassium 3.8 Chloride 109 (H) CO2 24 BUN 28 (H) Creatinine 1.4 (H) Estimated Glomerular Filtration Rate 50 (L) Anion Gap 9 Glucose 95 Calcium 8.7 Magnesium 2.6 Phosphorus 2.7 Protein 5.1 (L) 09/25/23 11:45 Albumin 3.4 (L) AST 28 ALT 19 Alkaline Phosphatase 79 Bilirubin, Total 0.6 09/25/23 12:55 INR 1.1 Prothrombin Time 14.8 Heparin, Unfractionated 0.52 (H) aPTT 36 09/19/23 14:24 Vitamin B12 316 Folic Acid 9.2 Immature Reticuloctye Fraction 24.7 (H) Reticulocyte Hemoglobin 37.6 (H) Absolute Reticulocyte 82.2 Reticulocyte Percent 2.75 (H) Free [place]/Lambda Light Chain Ratio September 09, 2023 8:17am 2.79 0.26-1.65 Free kappa/lambda ratio in serum of normal individuals is 0.26-1.65. Excess production of free kappa or lambda chains can alter this ratio. Monoclonal free light chains are found in serum of patients with multiple myeloma,Waldenstrom's macroglobulinemia, mu-heavy chain disease, primary amyloidosis, light chain deposition disease, monoclonal gammopathy of undetermined significance, and lymphoproliferative disorders. Measurement of free light chain concentration in serum is useful for diagnosis, prognosis, monitoring disease activity and following response to therapy of these disorders. THIS TEST WAS PERFORMED AT: [facility] [address] [place] [address]. [address] [place] [id number] HECTOR WALTER MD [facility], [address] [phone] Cryoglobulin September 09, 2023 8:17am Negative Negative The Cryocrit is primarily intended for following a patient with previously defined and quantitated cryoglobulins. The cryocrit may consist of cryoglobulins, fibrins, complement, or mixtures of these. THIS TEST WAS PERFORMED AT: [facility] [id number] [place] [phone] CHRISTY ROMAN MD,PHD Protein Electrophoresis Interpret September 05, 2023 11:01am SEE NOTE Evaluation reveals a restricted band (M-spike) migrating in the gamma globulin region. If not already requested, Immunofixation should be considered. Evaluation reveals a faint restricted band (M-spike) migrating in the gamma globulin region. If not already requested, Immunofixation should be considered. THIS TEST WAS PERFORMED AT: [employer] [facility] [address] [place] [phone] HECTOR WALTER MD [employer] [address] [facility] [address] [facility] [phone] Serum Immunofixation September 05, 2023 11:01am SEE NOTE IgG kappa monoclonal band present. A faint band in IgG [place] cannot be ruled out from the serum immunofixation electrophoresis pattern. Consider repeat of serum and/or urine immunofixation electrophoresis if clinically indicated. THIS TEST WASPERFORMED AT: [employer] [address] [place] [address] HECTOR WALTER MD [employer], [employer] [address] [facility] [address] [facility] [phone] Urine Immunofixation September 09, 2023 2:30pm SEE NOTE IgG kappa monoclonal band present. In addition, there are faint bands of undetermined significance. Clinical correlation recommended for interpretation. Urine Protein Electrophoresis Intrp September 09, 2023 2:30pm SEE NOTE Monoclonal protein present. Suggest urine immunofixation for identification. CTH 09/23: FINDINGS: No acute intracranial hemorrhage. No midline shift or mass effect. Encephalomalacia in the RIGHT parietal lobe, consistent with old infarct. Age-related cerebral volume loss. Periventricular and subcortical white matter hypoattenuation, consistent with chronic microangiopathy. The visualized orbits appear grossly unremarkable. The calvarium is intact. Mucous retention cyst in the RIGHT maxillary sinus. IMPRESSION: No acute intracranial hemorrhage, midline shift, or mass effect. Encephalomalacia in the RIGHT parietal lobe, consistent with old infarct. LE Duplex 09/25: BILATERAL LOWER EXTREMITY VENOUS DOPPLER CLINICAL HISTORY: leg edema r/o DVT COMPARISON STUDY: No previous studies for comparison. TECHNIQUE: Sonography of the deep venous system of the bilateral lower extremities was performed. Compression and augmentation were evaluated. FINDINGS: There is deep venous thrombus within one of two paired right posteriortibial veins as well as one of two paired right peroneal veins. There is also deep venous thrombus within one of tow paired left posterior tibial veins. No above the knee thrombus is noted. There is a 5.6 x 4.4 x 2.9 cmleft popliteal cyst. IMPRESSION: 1. Deep venous thrombus within the bilateral calf vessels, as described above. No above the knee thrombus. 2. 5.6 x 4.4 x 2.9 cm left popliteal cyst. ASSESSMENT RECOMMENDATIONS/PLAN: The patient is a 83 year old year old male who presented to the hospital with hypotension and was consulted for evaluation of monoclonal gammopathy with concern for MGRS. Distal DVTs, bilateral History of atrial fibrillation on Eliquis Provoked DVTs due to immobilization, obesity Continue heparin drip Can interrupt anticoagulation if needed as DVTs are distal Resume Eliquis 5 mg BID after renal biopsy Thrombocytopenia Biopsy ok from a hematologic standpoint as platelets >50 Concern for MGRS Recommend renal biopsy, ok to biopsy 24 hour urine protein electrophoresis recommended Repeat serum protein electrophoresis Will decide upon bone marrow biopsy after renal biopsy results Consider other causes of anemia: LD, haptoglobin, MMA Thank you for placing a consult to Hematology service. Hematology team will continue to follow. The patient and plan was discussed with Dr. Augustin. Aruna Saini DO Fellow Physician Hematology/Oncology Associated attestation - Kennedi Augustin MD - 09/25/2023 6:20 PM EDT {I saw and evaluated the patient today. I have reviewed the trainee note and agree. 83 yo M with nephrotic syndrome and acute distal DVT found to have an IgG [place] monoclonal protein.Planning for renal biopsy which is reasonable, as platelets are >100 and heparin can be held briefly given only distal DVT. Will continue to follow along with you. Will workup other causes of thrombocytopenia and anemia. I spent a total of 45 minutes coordinating, documenting, and providing care for this patient excluding time spent in the performance of separately billed services or time spent by another provider/QHP. Kennedi Augustin MD Hematology documented in this encounter Nursing Notes * Susi Cary RN - 10/02/2023 7:32 PM EDT Informed by patient's son that his dentures were missing. Not seen at the bedside. Patient also claim he came in with his dentures, but can't remember where its at. Apologized to the son and informedhim that will let our steam roller operator know and see what we can do. Patient's son understood. Patient discharged with wheelchair accompanied by the son. * Sofia Acevedo RN - 09/29/2023 4:22 PM EDT SBAR FOR POST INTERVENTIONAL RADIOLOGY PROCEDURE Patient Name: Leonidas Troy Age:[age] year old Sending to: [facility]4 Procedure: Right random renal biopsy Medications Administered: yes: 1 mg Versed, 100 mcg Fentanyl Special Instructions: Keep dressing clean, dry, intact. May remove in 24 hours. Concerns: no Report from: Sofia Phone extension: [phone] Patient sent via: Bed Reason for SBAR handoff: Transfer Patient meets discharge criteria for Interventional Radiology. Vital signs stable. Dressing clean, dry, and intact. Patient awake and oriented to pre procedure baseline. Patient with no nausea/vomiting. All belongings sent with patient. Vital Signs: BP: 130/83 (09/29/23 1620) Temp: 35.9 C (96.6 F) (09/29/23 1620) Pulse: 76 (09/29/23 1620) Resp: 13 (09/29/23 162) SpO2: 96 % (09/29/23 1620) Weight: 105.1 kg (231 lb 11.2 oz) (09/28/23 0533) Neurological: Lincoln Coma Scale Eyes Open: Spontaneous (09/29/23 162) Best Verbal Response: Verbally appropriate for age (09/29/23 1620) Best Motor Response: Obeys commands appropriate for age (09/29/23 1620) Coma Score: 15 (09/29/23 1620) Activity: Four Extremities LOC: Arousable on Calling BP: Less than (+/-) 20% Resp: Deep Breathe and Cough Freely (09/29 1609) Respiratory: Pain Assessment Flowsheet Row Most Recent Value Pain Assessment Scale [facility] 0-10 Pain Score 0 (no pain) Lines: Peripheral Line Left;Lower;Posterior Arm 20 Gauge (Active) Status Fluids infusing 09/29/23 0400 Tubing Changed N/A 09/29/23 040 Phlebitis Scale 0 09/29/23 0400 Infiltration Scale 0 09/29/23 0400 Site Description (Other) Without redness, swelling or drainage 09/29/23 040 Site Intervention Flushed 09/29/23399 Dressing Assessment Dressing clean, dry, and intact 09/29/23399 Dressing Intervention None required 09/29/23399 Number of days: 4 Peripheral Line Lower;Posterior;Right Arm 20 Gauge (Active) Status Capped/Locked;Alcohol disinfectant cap;Flushes easily;Cap changed 09/29/23399 Tubing Changed N/A 09/29/23399 Phlebitis Scale 0 09/29/23399 Infiltration Scale 0 09/29/23399 Site Description (Other) Without redness, swelling or drainage 09/29/23399 Site Intervention Flushed 09/29/23399 Dressing Assessment Dressing clean, dry, and intact 09/29/23399 Dressing Intervention None required 09/29/23399 Number of days: 4 * Sofia Acevedo RN - 09/29/2023 3:43 PM EDT turret press operator note Name: Leonidas Troy Date: 09/29/2023 Time: 3:4430 PM Procedure: Random Renal Biopsy Patient ID band checked using two identifiers. Patient placed on procedure table, prone position, with comfort measures intact and safety strap in place. Hemodynamic monitoring established. Patient denies complaints at current time. RT staff prepares for procedure. Reevaluation statement: RN received verbal confirmation that the patient was reevaluated by Dr. Stanley Ivy immediately prior to the sedation at 3:41 PM. 3:40 PM Patient prepped and ready. 3:41 PM Timeout performed by Dr. Stanley Ivy 3:42 PM Procedure started by Dr. Stanley Ivy, and scrubbed RT Beverley Carty Ultrasound utilized for anatomical analysis of patient and access needle guidance. 1% buffered lidocaine given by doctor at right posterior flank site. 1 mg Versed and 50 mcg Fentanyl given for patient comfort. 3:43 PM Needle placed. 3:47 PM Biopsy obtained. 3:49 PM Needle adjusted. Imaging obtained. 3:51 PM Biopsy obtained. 3:52 PM Biopsy sampling continues. 3:53 PM Specimens walked to lab by RT Randy. 3:58 PM 50 mcg Fentanyl given for patient comfort. 4:03 PM Sample is sufficient per lab. 4:06 PM Gelfoam injected via access site. 4:07 PM Access removed and manual pressure to site. 4:13 PM Hemostasis obtained. Area cleaned. Gauze and Tegaderm dressing applied. Patient tolerated procedure well without complications. All wires, catheters, sheaths and other devices have been inspected prior to the procedure for damage. This has been confirmed by the scrubbed RT and the operating physician. All items not intended to remain in the patient have been inspected, accounted for and have been removed from the patient atthe end of the procedure. This has been confirmed by the scrubbed RT and the operating physician. Pt did receive conscious sedation for their procedure, and was sedated from 3:41 PM to 4:20 PM. Total medications given Versed: 1 mg Fentanyl: 100 mcg 1% buffered lidocaine: 20 mL Please see doctor's operative note for additional details. * Stacia Hall RN - 09/29/2023 8:39 AM EDT INPATIENT TO INTERVENTIONAL RADIOLOGY (IR) HANDOFF COMMUNICATION NOTE [facility] [address] [facility] [id number] Name: Leonidas Troy Age: [age] year old Location: [facility] G408/[id number] Date: 09/29/2023 Safety Concerns: None Allergies: Patient has no known allergies. Contrast Dye Allergy? NO Allergy prepped? No Code Status: No Code Discussion of adv directives occurred with - adult: Patient Isolation: N/A Report from: Stacia Hall RN at phone extension [phone] Patient arriving via: Bed Reason for SBAR handoff: Procedure Patient is alert and oriented and able to sign consent (if not, personnel coordinator and number): Yes Patient NPO: yes Patient NPO since: 09/29/23 0001 Patient wears CPAP, BiPAP, or oxygen overnight: no Patient has difficulty breathing when lying flat? no Emotional/Personal Anxiety? no Last as needed pain medication given at (time): N/A Situation/Background Admission date: 09/25/2023 Patient Service: Med E [[id number]] Attending Provider: Bo Allen MD Admitting diagnosis: Nephrotic syndrome Chief Complaint: No chief complaint on file. Problem list: Active Problems: Monoclonal gammopathy Acute deep vein thrombosis (DVT) of both peroneal veins (HCC) Nephrotic syndrome Stage 3b chronic kidney disease (HCC) Nephrotic range proteinuria Resolved Problems: * No resolved hospital problems. * Level of Care: Med Surg [3] Vital Signs: BP: 104/58 (09/29/23 06) Temp: 36.7 C (98.1 F) (09/29/23 06) Pulse: 77 (09/28/23 0300) Resp: 18 (09/29/23 06) SpO2: 97 % (09/29/23 06) Weight: 105.1 kg (231 lb 11.2 oz) (09/28/23 0533) Labs: Please see Lab Flowsheet for lab values. Lab comments: no Lines: Peripheral Line Left;Lower;Posterior Arm 20 Gauge (Active) Status Fluids infusing 09/29/23 0400 Tubing Changed N/A 09/29/230 Phlebitis Scale 0 09/29/23 0400 Infiltration Scale 0 09/29/23 0400 Site Description (Other) Without redness, swelling or drainage 09/29/23399 Site Intervention Flushed 09/29/23399 Dressing Assessment Dressing clean, dry, and intact 09/29/23399 Dressing Intervention None required 09/29/23 040 Number of days: 4 Peripheral Line Lower;Posterior;Right Arm 20 Gauge (Active) Status Capped/Locked;Alcohol disinfectant cap;Flushes easily;Cap changed 09/29/23 0400 Tubing Changed N/A 09/29/23399 Phlebitis Scale 0 10/30/23 0400 Infiltration Scale 0 09/29/23399 Site Description (Other) Without redness, swelling or drainage 09/29/23399 Site Intervention Flushed 09/29/23399 Dressing Assessment Dressing clean, dry, and intact 09/29/23399 Dressing Intervention None required 09/29/23399 Number of days: 4 Fall Scale: Fall Score: 60 (09/28/231999) Fall Interventions: Bed at low level;Bed alarm on;Floor free of clutter;Walk path free of obstacles(09/28/231999) Neurological: Veronica Coma Scale Eyes Open: Spontaneous (09/28/231999) Best Verbal Response: Verbally appropriate for age (09/28/231999) Best Motor Response: Obeys commands appropriate for age (09/28/231999) Coma Score: 15 (09/28/231999) Additional Neurological Information: no Respiratory: Respiratory WNL: WNL- within normal limits (09/28/231999) Depth/Rhythm: Regular (09/27/231999) Effort: Unlabored (09/27/231999) Left Breath Sounds: Diminshed (09/26/23) Oxygen therapy/ Mechanical vent O2 flow rate: 0 L/MIN (09/29/23599) Supplemental O2 Delivery: Room Air, None (09/29/23599) O2 flow rate: 0 L/MIN (09/29/23599) Additional Respiratory Information: no Cardiac: Observation WNL: WNL except for items charted below (09/28/231999) Heart Sounds: S1;S2 (09/28/23799) Rhythm: Paced (09/29/23599) QRS: 0.14 seconds (09/28/23 2300) Extremities: +Sensation;Warm;[place] (09/28/23799) Pulses Right: Dorsalis Pedis +;Post Tibial +;Radial + (09/28/23799) Pulses Left: Dorsalis Pedis +;Post Tibial +;Radial + (09/28/23799) Edema: Yes (09/28/231999) Edema Location: Lower extremities;Both (09/28/231999) Edema Assessment: +2 - Description (09/28/231999) Capillary Refill: 2 sec (09/28/231999) Additional Cardiac Information: no GI/: Observation WNL: Yes (09/28/231999) Abdomen: Soft;Non-distended;Non-tender (09/28/231999) Bowel Sounds: All Quadrants;Present (09/28/231999) Additional GI/ Information: NO Integumentary: Observation WNL: WNL except for items charted below (09/28/231999) Skin Description: Dry;Warm (09/28/231999) Skin Color: Pale (09/28/231999) Skin Lesion: Other - Describe (see LDA) (09/28/231999) Environment / Interventions: Bed (09/28/231999) Duncan Score (auto-calculation): 18 (09/28/231999) Skin Breakdown (including Red, Non-Blanchable Areas) Present on Admission?: No (09/25/231133) Additional Integumentary Information: no Restraints: No orders of the defined types were placed in this encounter. * Randi Anand RN - 09/25/2023 10:54 AM EDT Dual Licensed Skin Assessment completed by Randi Peterson RN and Evonne Quiroz LPN. The patient is/has a N/A Skin Breakdown (includes non blanchable erythema): No. Scattered ecchymosis and scabs. documented in this encounter Miscellaneous Notes * Care Plan - Susi Cary RN - 10/02/2023 3:17 PM EDT Clinical Goal(s): patient will be discharged today (10/02/23 0820) Possible barriers to meeting goal(s)/advancing plan of care: n/a Stability of the patient: Moderately stable - low risk of patient condition declining or worsening Summary regarding today's goal(s): Met: patient discharge today after rituximab infusion complete and patient tolerates infusion Recommendations: continue plan of care * Ancillary Progress Note - Arturo Freeman MSW - 10/02/2023 12:09 PM EDT ADULT CARE MANAGEMENT - DISCHARGE NOTE [facility]-[address] [address] Name: Leonidas Troy Location: [facility] [id number] Date: 10/02/2023 Time: 12:10 PM The following coordination of care and discharge plan has been coordinated with the care team, patient, family and/or caregiver according to the patients needs and preferences. Discharge Discharge Insurance considerations verified and completed: Yes (10/02/231208) Second Notice Important Message from Medicare delivered: Yes (10/02/231208) Date Delivered: 10/02/23 (10/02/231208) Retain copy in EHR: Yes (10/02/231208) Was Caregiver/Family/Facility contacted regarding discharge: Yes (Son Luis) (10/02/231208) Discharge Transportation: Family/Friends drive (10/02/231208) Date of scheduled discharge transportation: 10/02/23 (10/02/231208) Time of scheduled discharge transportation: (Evening) (10/02/231208) Patient declined post-hospital transition of care recommendation: N/A (10/02/231208) Final D/C Plan - Complete at time of D/C Final Discharge Plan (Complete only at time of Discharge): Other (Return to [facility]. Assisted Living Facility) (10/02/231208) Narrative: Pt and family agreeable to the following d/c plan. Pt to d/c back to assisted living facility at: [facility] ([address] [place], [address], ) Pt's son Luis to provide d/c transportation on 10/02/2023 in the evening pending Pt's tolerance of infusion. CM confirmed d/c plan with Shira at the facility and Pt's son Luis. Service to contact Luis when Pt's infusion has finished to notify him of pickup time. Anticipate Pt to d/c around 17:00 today 10/02/2023. * Ancillary Progress Note - Arturo Freeman MSW - 10/02/2023 12:04 PM EDT CARE MANAGEMENT - ADULT TRANSITION NOTE [facility]-[address] [address] Name: Leonidas Troy Location: [facility] G408/A Date: 10/02/2023 Time: 12:05 PM Prescription Coverage: Yes (09/26/23922) Risk Stratification Risk Stratification Medical and Behavioral Health Concerns Identified: Chronic disease;Multiple comorbidities;Chronic Kidney Disease (09/26/23922) Psycho Social/Care Gaps concerns identified upon admission:: Adjustment to illness/injury;New serious diagnosis (09/26/23922) Accessed [facility] to connect patients to social care resources: No (09/26/23922) OBRA or OPTIONS needed for placement: No (09/26/23922) Readmission Risk Score: 18.83 (10/02/23 1200) AM-PAC Score With Stairs : 22 (10/02/23 0820) Caregiver Information Patient Contacts Name Relation Home Work Mobile Luis Troy Adult Child [phone] Transition of Care Checklist Transition of Care Checklist (aka Readmission Risk Score) Readmission Risk Score: 18.83 (10/02/23 1200) Outpatient Radial Drill Press Operator: No, not applicable (09/29/23 1049) Narrative: Pt discussed at IDT rounds. Per service, Pt to receive infusion this afternoon and if he tolerates it well will be able to d/c back to [facility] in [place] this evening. Per discussion, Pt's son is agreeable to come pick Pt up for discharge transportation this evening. CM called and spoke with Shira at [facility] at [phone] to provide update. CM faxed over requested clinical forms to Shira to [phone]. CM agreeable to follow up and fax d/c orders once they are in. CM confirmed with service and Pt's Son Luis at [phone] that he can tentatively pick Pt up around 17:00 today pending Pt being able to tolerate his infusion. Service agreeable to follow up and call Pt's son as soon as possible following the infusion as he lives about 1 Hour and 45 Minutes away. Anticipate Pt to d/c back to [facility] this evening pending tolerance of infusion. Anticipated Transportation at Discharge: Son Luis Patient/Family Expectations: Return to [facility] Transition Planning Transition Planning Transition Plan/Considerations: Instructed to call with concerns;Discussed at Interdisciplinary Team / Boost Rounds;Needs identified - discharge planning services explained to patient family / caregiver - choices offered (09/29/231048) Transition services explained and patient/family/caregiver agreeable: Return to Snf/AssistedLiving/Personal Care Facility (09/29/231048) Insurance Considerations: N/A (09/29/231048) Referral to Community Agency : N/A (09/29/231048) Additional Considerations: N/A Care Management will continue to monitor and assist with discharge planning needs * Ancillary Progress Note - Inez Valladares RDN - 10/02/2023 10:57 AM EDT CLINICAL NUTRITION ADULT RISK ASSESSMENT [facility]-[address] [address] Name: Leonidas Troy Location: [place] [address]/[id number] Date: 10/02/2023 Time: 10:25 AM How patient was identified (select 2): Wristband and date Leonidas Troy is a 83 year old male being assessed for clinical nutrition risk related to extended LOS Primary diagnosis: CKD 3b, nephrotic syndrome. PMHx ischemic cardiomyopathy Other pertinent information: patient stated he has been eating 75% or more of meals. Nursing flowsheet confirms that for most meals he is eating 75-1000%. Denies any GI issues.No chewing or swallowing concerns. Food preferences sent to food equipment service technician. Patient stated he uses a salt substitute at home instead of the salt shaker Anthropometrics Measurements Admission weight (for dietitians): 104.6 kg Weight: 104.9 kg (231 lb 4.8 oz) (11/02/23 0348) Usual Body Weight or EDW for Dialysis Patients: 106-109 kg since July; some flucutations prior tothat however may be fluid related Diet: Heart Healthy, 2 gm Sodium Previously followed diet: limits use of salt shaker Food Allergies/Intolerances: none Oral Nutrition Supplement (ONS): none Pertinent medications/vitamins/minerals/supplements: feosol,solu-medrol IV RISK FACTORS: Adult Energy Intake: No significant decrease Interpretation of Weight Change: No recent/significant weight change Skin: Intact NUTRITION RISK CATEGORY: Nutrition Risk Category: Low/Moderate (0-1 factors) Clinical Nutrition Recommendations: Diet: Continue current nutrition plan NUTRITION INTERVENTION/PLAN: Continue current care plan Will follow and adjust nutritional plan as medical condition requires. Please contact for change(s)in patient condition requiring earlier intervention. Inez Valladares, MS, RD, LDN, FNKF Clinical Dietitian [facility] Extension: [phone] [place] Text' * Care Plan - Mily Calderon RN - 10/02/2023 5:46 AM EDT Clinical Goal(s): Pt will remain free from injury throughout shift. (10/01/23 2300) Possible barriers to meeting goal(s)/advancing plan of care: disease process Stability of the patient: Moderately unstable - medium risk of patient condition declining or worsening Summary regarding today's goal(s): Met: goal met Recommendations: Continue safety measures including, bed rails up and locked, non-skid socks when ambulating, call zambrano within reach etc. * Care Plan - Stacia Hall RN - 10/01/2023 7:05 PM EDT Clinical Goal(s): Patient will be free of falls this shift. (10/01/23 5434) Possible barriers to meeting goal(s)/advancing plan of care: Weakness Stability of the patient: Moderately stable - low risk of patient condition declining or worsening Summary regarding today's goal(s): Met: Patient remained free of falls this shift and did ambulate. Recommendations: Continue current plan of care and assist as necessary. * Ancillary Progress Note - Kyra FatmataNAZARIO Walter - 10/01/2023 2:52 PM EDT CARE MANAGEMENT - ADULT TRANSITION NOTE [facility]-[address] [address] Name: Leonidas Troy Location: [facility] G408/A Date: 10/01/2023 Time: 2:56 PM Prescription Coverage: Yes (09/26/23922) Risk Stratification Risk Stratification Medical and Behavioral Health Concerns Identified: Chronic disease;Multiple comorbidities;Chronic Kidney Disease (09/26/23922) Psycho Social/Care Gaps concerns identified upon admission:: Adjustment to illness/injury;New serious diagnosis (09/26/23922) Accessed [facility] to connect patients to social care resources: No (09/26/23922) OBRA or OPTIONS needed for placement: No (09/26/23922) Readmission Risk Score: 13.03 (10/01/23 1200) AM-PAC Score With Stairs : 18 (10/01/23 1220) Caregiver Information Patient Contacts Name Relation Home Work Mobile Luis Tryo Adult Child [phone] Transition of Care Checklist Transition of Care Checklist (aka Readmission Risk Score) Readmission Risk Score: 13.03 (10/01/23 1200) Outpatient Radial Drill Press Operator: No, not applicable (09/29/23 6725) Narrative: Case discussed during IDT rounds. Per service, pt is approaching medical stability for discharge. [facility] ([phone]) when medically ready. SW spoke with pt's son regarding disposition. Discussed transportation back to [place] andpt's son in agreement with w/c rachel - will discuss cost when confirmed. SW will continue to follow through admission to aid with evolving needs, provide psychosocial support, and assist with discharge planning. Anticipated Transportation at Discharge: w/c rachel Patient/Family Expectations: return to [facility] Transition Planning Transition Planning Transition Plan/Considerations: Instructed to call with concerns;Discussed at Interdisciplinary Team / Boost Rounds;Needs identified - discharge planning services explained to patient family / caregiver - choices offered (09/29/231048) Transition services explained and patient/family/caregiver agreeable: Return to Snf/AssistedLiving/Personal Care Facility (09/29/23 104) Insurance Considerations: N/A (09/29/231048) Referral to Community Agency : N/A (09/29/231048) Additional Considerations: -- Care Management will continue to monitor and assist with discharge planning needs * Care Plan - John Beltrán RN - 10/01/2023 8:01 AM EDT Clinical Goal(s): Pt will remain free from injury this shift. (09/30/23 934) Possible barriers to meeting goal(s)/advancing plan of care: dementia, ambulatory dysfunction, periodic incontinence, bouts of combativeness Stability of the patient: Moderately stable - low risk of patient condition declining or worsening Summary regarding today's goal(s): Met: Pt remained uninjured this shift. Recommendations: bed alarm on, siderails x3, callbell within reach, reinforce callbell use * Care Plan - Letty Koo RN - 09/30/2023 6:28 PM EDT Problem: Safety & Risk for Injury Goal: Patient will remain free from injury. Outcome: Progressing Problem: Actual & Potential for Falls Goal: Patient will remain free of falls. Outcome: Progressing Clinical Goal(s): patient safety (09/30/23 0747) Possible barriers to meeting goal(s)/advancing plan of care: Renal biopsy Stability of the patient: Moderately unstable - medium risk of patient condition declining or worsening Summary regarding today's goal(s): Met: Patient met today's goal as he did not have any falls during this shift. Recommendations: Continue with all fall risk precautions. * Care Plan - Mily Calderon RN - 09/30/2023 6:54 AM EDT Clinical Goal(s): Patient will remain free from injury (09/29/23 2300) Possible barriers to meeting goal(s)/advancing plan of care: disease process Stability of the patient: Moderately unstable - medium risk of patient condition declining or worsening Summary regarding today's goal(s): Met: goal met Recommendations: Continue safety measures including, bed rails up and locked, non-skid socks when ambulating, call zambrano within reach etc. * Care Plan - Stacia Hall RN - 09/29/2023 5:49 PM EDT Clinical Goal(s): Patient will be free of falls this shift. (09/29/23 0839) Possible barriers to meeting goal(s)/advancing plan of care: weakness Stability of the patient: Moderately stable - low risk of patient condition declining or worsening Summary regarding today's goal(s): Met: Patient remained free of falls this shift. Recommendations: Continue current plan of care assisting patient as needed. * Progress Notes - Non-Billable - tSanley Ivy MD - 09/29/2023 4:30 PM EDT PROCEDURE NOTE - Interventional Radiology [facility]-[address] [address] Name: Leonidas Troy Location: [facility] G408/A Date: 09/29/2023 Time: 5:54 PM PROCEDURE: Random right renal biopsy LONG DISTANCE BILLING OPERATOR: Dr. Tim Ivy ASSISTANTS: None ANESTHESIA: conscious sedation COMPLICATIONS: none SPECIMEN: Pathology ESTIMATED BLOOD LOSS: negligible FINDINGS: Random right renal biopsy Three 18g core samples obtained, sent to pathology who confirmed greater than 30 glomeruli PLAN: May restart heparin 4 hours post biopsy Follow up pathology results * Pre-Sedation Assessment - Stanley Ivy MD - 09/29/2023 3:17 PM EDT PRE-SEDATION ASSESSMENT PRE-SEDATION ASSESSMENT: Random Renal Biopsy Level of sedation planned: Moderate Patient's allergies reviewed: Yes H&P Review / Interval Note Documentation: I have reviewed the H&P previously performed, examined the patient today, and the following findings are new (see comments). Difficulty with sedation / anesthesia: No Sleep apnea: Yes History of snoring: Yes History of difficult intubation: No Decreased ROM neck flexion/extension: No Tracheal deviation: No Decreased ability to open mouth / TMJ: No Loose teeth / dentures / partial: Yes Congenital deformities / abnormalities: No Dysphagia: No Mallampati Classification: II - soft palate, uvula, fauces visible Chest: Clear Heart: Regular Rhythm Adequate Vascular Access: Yes ASA Risk Stratification (Select One): ASA 3 - Severe systemic disease, definite functional limitations The patient was identified and the procedure verified: Yes The patient was reevaluated immediately prior to the sedation: 09/29/2023 3:17 PM * Ancillary Progress Note - Fatmata Rae LSW - 09/29/2023 10:49 AM EDT CARE MANAGEMENT - ADULT TRANSITION NOTE [facility]-[address] [address] Name: Leonidas Troy Location: [facility] G408/A Date: 09/29/2023 Time: 10:49 AM Prescription Coverage: Yes (09/26/23922) Risk Stratification Risk Stratification Medical and Behavioral Health Concerns Identified: Chronic disease;Multiple comorbidities;Chronic Kidney Disease (09/26/23922) Psycho Social/Care Gaps concerns identified upon admission:: Adjustment to illness/injury;New serious diagnosis (09/26/23922) Accessed [facility] to connect patients to social care resources: No (09/26/23922) OBRA or OPTIONS needed for placement: No (09/26/23922) Readmission Risk Score: 12.2 (09/29/23 0800) AM-PAC Score With Stairs : 23 (09/28/23 08) Caregiver Information Patient Contacts Name Relation Home Work Mobile Luis Tory Adult Child [phone] Transition of Care Checklist Transition of Care Checklist (aka Readmission Risk Score) Readmission Risk Score: 12.2 (09/29/23 08) Outpatient Radial Drill Press Operator: No, not applicable (09/29/231048) Narrative: Case discussed during IDT rounds. Per service, pt is not yet stable for discharge - pending kidney biopsy planned for today. Anticipate pt to return to [facility] in [facility] ([phone]) when medically ready. SW to continue to update [facility] as more is known. SW will continue to follow through admission to aid with evolving needs, provide psychosocial support, and assist with discharge planning. Anticipated Transportation at Discharge: TBD Patient/Family Expectations: return to [facility] Transition Planning Transition Planning Transition Plan/Considerations: Instructed to call with concerns;Discussed at Interdisciplinary Team / Boost Rounds;Needs identified - discharge planning services explained to patient family / caregiver - choices offered (09/29/231048) Transition services explained and patient/family/caregiver agreeable: Return to Snf/AssistedLiving/Personal Care Facility (09/29/231048) Insurance Considerations: N/A (09/29/231048) Referral to Community Agency : N/A (09/29/231048) Additional Considerations: -- Care Management will continue to monitor and assist with discharge planning needs * Care Plan - Mily Calderon RN - 09/29/2023 6:02 AM EDT Clinical Goal(s): Patient will remain free from injury (09/28/23 2300) Possible barriers to meeting goal(s)/advancing plan of care: disease process Stability of the patient: Moderately unstable - medium risk of patient condition declining or worsening Summary regarding today's goal(s): Met: goal met Recommendations: continue safety measures including, bed rails up and locked, non-skid socks when ambulating, call zambrano within reach etc. * Care Plan - Swati Orosco RN - 09/28/2023 4:11 PM EDT Clinical Goal(s): patient will remain free from injury (09/28/23 1145) Possible barriers to meeting goal(s)/advancing plan of care: generalized weakness Stability of the patient: Moderately stable - low risk of patient condition declining or worsening Summary regarding today's goal(s): Met: patient remained free from injury Recommendations: continue with plan of care * Care Plan - Leeann Retana RN - 09/28/2023 3:52 AM EDT Clinical Goal(s): Patient will remain free from fall for the shift (09/27/23 2300) Possible barriers to meeting goal(s)/advancing plan of care: Disease process Stability of the patient: Moderately stable - low risk of patient condition declining or worsening Summary regarding today's goal(s): Met: Patient remain free from fall for the shift, bed alarm on, bed at lowest position, reinforced the use of call zambrano as needed Recommendations: Continue with plan of care. * Care Plan - Swati Orosco RN - 09/27/2023 2:15 PM EDT Clinical Goal(s): patient will remain free from falls (09/27/23 1300) Possible barriers to meeting goal(s)/advancing plan of care: generalized weakness Stability of the patient: Moderately stable - low risk of patient condition declining or worsening Summary regarding today's goal(s): Met: pt remained free from falls Recommendations: continue with fall precautions * Care Plan - Mily Calderon RN - 09/27/2023 7:09 AM EDT Clinical Goal(s): Patient will remain free from fall/injury throughout shift. (09/26/230) Possible barriers to meeting goal(s)/advancing plan of care: mechanism of injuries Stability of the patient: Moderately unstable - medium risk of patient condition declining or worsening Summary regarding today's goal(s): Met: goal met Recommendations: continue safety interventions including: bed alarms, call zambrano within reach, non-skid socks etc. * Ancillary Progress Note - Fatmata Rae LSW - 09/26/2023 9:26 AM EDT CARE MANAGEMENT - ADULT INITIAL SCREENING [address] [address] Name: Leonidas Troy Location: [facility] G408/A Date: 09/26/2023 Time: 9:26 AM Patient Class: Inpatient (09/26/23922) Discussed patient with the interdisciplinary care team. This Traffic Expert performed a chart review and met with pt at bedside to complete admission screen and assessed needs for transition planning. The caretaker grounds role and services were explained and emotional support was provided. 30 Day Readmission Screening 30 Day Readmission Readmission within 30 days?: No (09/26/23922) Chief Complaint: No chief complaint on file. Prior Living Arrangements What was your living situation prior to admission/observation?: At an Assisted Living Center (09/26/23922) Do you have any children, pets, or other dependents that you are currently caring for?: No (09/26/23922) Living Quarters: Assisted Living (09/26/23922) How many stories is the dwelling?: N/A (09/26/23922) Location of bathroom(s): All floors or Single story dwelling (09/26/23922) Do you have serious difficulty walking or climbing stairs? (5 years old or older): No (09/25/231133) History of falling: No (09/26/23849) Prior Level of Functioning Describe the patient's ability prior to admission/observation to perform ADLs: Performs independently (09/26/23922) Describe the patient's mobility status prior to admission: Patient ambulates independently (09/26/23922) Patient uses assistive device: Yes (09/25/231133) If yes, choose:: Cane;Walker (09/25/231133) Caregiver Information Patient Contacts Name Relation Home Work Mobile Luis rToy Adult Child [phone] Risk Stratification/Psychosocial/Care Gaps Risk Stratification Medical and Behavioral Health Concerns Identified: Chronic disease;Multiple comorbidities;Chronic Kidney Disease (09/26/23922) Psycho Social/Care Gaps concerns identified upon admission:: Adjustment to illness/injury;New serious diagnosis (09/26/23922) Accessed [facility] to connect patients to social care resources: No (09/26/23922) OBRA or OPTIONS needed for placement: No (09/26/23922) Readmission Risk Score: 12.53 (09/26/23799) AM-PAC Score With Stairs : 16 (09/25/231999) *Late Entry* Comments: Pt resides at [facility] in [place] [facility] ([phone]). Pt wasmostly independent with ADLs and utilized cane or RW to ambulate. No hx of services or SNF/IRF stays. Pt is driven by son/POAwilda Smith when needed. No MH or MCNEILL concerns reported during assessment. Case discussed during IDT rounds. Per service, pt is not yet stable/is approaching medical stability for discharge - pending biopsy planned for Saturday 09/29. SW to continue to update [facility] in [facility] as more is known. SW will continue to follow through admission to aid with evolving needs, provide psychosocial support, and assist with discharge planning. Prior to Admission Services Services Prior to Admission ELECTRICAL INTEGRATOR Services (Services received within the last 30 days with exception, Psych within last two years): Assisted Living (09/26/23922) List All Provider/Service Name: [facility] (09/26/23922) Agency contacted: Yes (09/26/23922) [place] Dept[facility] of Aging (PDA) Waiver Program: N/A (09/26/23922) ELECTRICAL INTEGRATOR Transportation (Services received within the last 30 days): Family/Friends Personal Vehicle (09/26/23922) Outpatient Traffic Expert: no, not applicable Patient/Family Expectations: anticipate return to [facility] CORRECTION Anticipated Disposition Plan & Post Acute Needs Anticipated Plan Anticipated D/C disposition per abbreviated screening: Other - Describe (Pending hospital stay) (09/26/23922) For further screening information, please refer to the Care Management flow document. * Care Plan - Michi Albrecht RN - 09/26/2023 5:22 AM EDT Clinical Goal(s): pt.will remain free from falls and comfortable during night (09/25/23 1900) Possible barriers to meeting goal(s)/advancing plan of care: Problem: Pain & Impaired Comfort Goal: Patient's pain & discomfort is manageable. Outcome: Progressing Problem: Actual & Potential for Falls Goal: Patient will remain free of falls. Outcome: Progressing Stability of the patient: Moderately stable - low risk of patient condition declining or worsening Summary regarding today's goal(s): Met: pt.did not fall and rested well last night Recommendations: continue as plan of care. 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 Chartreviewed - pt's last dose of eliquis 1024 PM, plavix 10/24 AM. Eliquis needs to be held for at least 48 hours and plavix for 5 days prior to biopsy. Will tentatively plan for random renal biopsy in IR as schedule permits, Saturday 09/29. Please contact IR with any questions or concerns. documented in this encounter Plan of Treatment Upcoming Encounters Date Type Department Care Team (Late st Contact Info) Description 10/09/2023 1:00 PM EST Office Visit Nephrology [address] [place] [address] Gisele Daugherty MD [address] [facility] [place] [address] 10/28/2023 10:30 AM EST Appointment Radiology, [place] [address] [place] [id number] 10/28/2023 11:30 AM EST Procedure Only Urology, [place] [address] [place], [place] [id number] Garrick Dorman MD [address] [place], [place] [id number] 11/18/2023 2:00 PM EST Cardiac Studies Cardiology, [facility] [address] [place] [address] Isabelle Patel [facility] [address] [place] [address] 11/21/2023 1:50 PM EST Office Visit Dermatology [facility] [address] [place] [address] Lavonne Herzog PA-C [address] [facility] [place] [address] 02/24/2024 4:20 PM EDT Office Visit Neurology [facility] [address] [place] [address] Chicho Steward DO [address] [place] [address] [address] 04/16/2024 1:00 PM EDT Office Visit Family Practice [facility] [address] [place] [address] Payam Claire DO [address] [facility] [place] [address] Pending Results Name Type Priority Associated Diagnoses Date /Time BONE MARROW PANEL Lab Routine 023 4:30 PM EDT BONE MARROW ASPIRATE LAVENDER (MOLECULAR) - 2 TUB* Lab Routine 09/30/2023 4:30 PM EDT BONE MARROW ASPIRATE GREEN (REFERRED) Lab Routine 09/30/2023 4:30 PM EDT Scheduled Orders Name Type Priority Associated Diagnoses Orde r Schedule BONE MARROW PANEL Lab Routine One Devin e for 1 Occurrences starting 09/30/2023 until 09/30/2023 BONE MARROW ASPIRATE LAVENDER (MOLECULAR) - 2 TUB* Lab Routine Once for 1 Occur rences starting 09/30/2023 until 09/30/2023, 1 completed BONE MARROW ASPIRATE GREEN (REFERRED) Lab Routine Once for 1 Occu rrences starting 09/30/2023 until 09/30/2023 BASIC METABOLIC PANEL Lab Routine Nephrotic range proteinuria Expected: 10/09/2023, Expires: 10/02/2024 Health Maintenance Due Date Last Done Comments Albumin/Creatinine Ratio 1958 Zoster Vaccines (2 of 3) 11/08/2013 09/13/2013 Depression Screening 04/11/2022 04/11/2021 COVID-19 Vaccine (3 season) 2023 02/10/2021, 01/02/2021 GFR 04/01/2024 10/02/2023, 12/2022, 09/30/2023, Additional history exists CKD HGB USE SMARTSET 88025 10/02/202410/02, 10/01/2023, 09/30/2023, Additional history exists CKD PHOS USE SMARTSET 11337 10/02/202401/2023, 10/01/2023, 09/30/2023, Additional history exists DTaP,Tdap,and [...] Not on filedocumented as of this encounter Procedures Procedure Name Priority Date/Time Associated Diagnosis Comments RENAL FUNCTION PANEL Routine 10/02/2023 3:16 AM EDT PT INR Routine 10/02/2023 3:16 AM EDT CBC Routine 10/02/2023 3:16 AM EDT URINE IMMUNOFIXATION, BENCE TOLEDO PROTEIN, 24 HOUR URINE Routine 10/01/2023 9:46 PM EDT URINE PROTEIN ELECTROPHORESIS REFLEX PROFILE, 24 HOUR URINE Routine 10/01/2023 9:46 PM EDT RENAL FUNCTION PANEL Routine 10/01/2023 6:03 AM EDT PT INR Routine 10/01/2023 6:03 AM EDT CBC Routine 10/01/2023 6:03 AM EDT FLOW CYTOMETRY, LEUKEMIA LYMPHOMA PANEL Routine 09/30/2023 4:30 PM EDT BONE MARROW ASPIRATE GREEN (FLOW) Routine 09/30/2023 4:30 PM EDT BONE MARROW WITH REFLEX TESTING Routine 09/30/2023 4:30 PM EDT DIFFERENTIAL, AUTOMATED Routine 09/30/20 6:37 AM EDT RENAL FUNCTION PANEL Routine 09/30/2023 6:37 AM EDT PT INR Routine 09/30/2023 6:37 AM EDT CBC Routine 09/30/2023 6:37 AM EDT IR BIOPSY Routine 09/29/2023 4:22 PM EDT SURGICAL PATHOLOGY Routine 09/29/2023 3: 47 PM EDT RENAL FUNCTION PANEL Routine 09/29/2023 8:56 AM EDT PT INR Routine 09/29/2023 8:56 AM EDT CBC Routine 09/29/2023 8:56 AM EDT APTT STAT 09/29/2023 1:57 AM EDT APTT STAT 09/28/2023 5:44 PM EDT APTT Routine 09/28/2023 10:15 AM EDT RENAL FUNCTION PANEL Routine 09/28/2023 4:39 AM EDT PT INR Routine 09/28/2023 4:39 AM EDT APTT Routine 09/28/2023 4:39 AM EDT CBC Routine 09/28/2023 4:39 AM EDT APTT STAT 09/27/2023 9:36 PM EDT APTT STAT 09/27/2023 3:01 PM EDT RENAL FUNCTION PANEL Routine 09/27/2023 5:05 AM EDT CBC Routine 09/27/2023 5:05 AM EDT PT INR Routine 09/27/2023 5:04 AM EDT APTT STAT 09/27/2023 5:04 AM EDT HIV ANTIGEN & ANTIBODY SCREEN W/ CONFIRMATION Routine 09/26/2023 8:38 PM EDT APTT STAT 09/26/2023 8:38 PM EDT APTT STAT 09/26/2023 2:03 PM EDT APTT STAT 09/26/2023 7:31 AM EDT QUANTIFERON TB GOLD PLUS Routine 09/26/2023 5:35 AM EDT RENAL FUNCTION PANEL Routine 09/26/2023 5:35 AM EDT PT INR Routine 09/26/2023 5:35 AM EDT CBC Routine 09/26/2023 5:35 AM EDT XR CHEST 1 VIEW Routine 09/25/2023 11:10 PM EDT ACUTE HEPATITIS PANEL Routine 09/25/2023 9:35 PM EDT PSA Routine 09/25/2023 9:35 PM EDT APTT STAT 09/25/2023 9:35 PM EDT SERUM PROTEIN ELECTROPHORESIS REFLEX PROFILE Routine 09/25/2023 6:06 PM EDT SERUM IMMUNOFIXATION Routine 09/25/2023 6:06 PM EDT METHYLMALONIC ACID, SERUM Routine 09/25/2023 6:06 PM EDT SERUM FREE LIGHT CHAINS Routine 09/25/20 6:06 PM EDT PT INR Routine 09/25/2023 6:06 PM EDT LD Routine 09/25/2023 6:[address] ABD/PELVIS WO IV/ORAL CONTRAST Routine 09/25/2023 5:50 PM EDT HEPARIN, UNFRACTIONATED STAT 09/25/20 12:55 PM EDT PT INR STAT 09/25/2023 12:55 PM EDT APTT STAT 09/25/2023 12:55 PM EDT IMMUNOGLOBULIN QUANTITATIVE Add-on 09/25/2023 11:45 AM EDT COMPREHENSIVE METABOLIC PANEL STAT 09/25/2023 11:45 AM EDT PHOSPHORUS STAT 09/25/2023 11:45 AM EDT CBC STAT 09/25/2023 11:45 AM EDT MAGNESIUM STAT 09/25/2023 11:45 AM EDT HAPTOGLOBIN Add-on 09/25/2023 11:45 AM EDT documented in this encounter Results * (ABNORMAL) RENAL FUNCTION PANEL (10/02/2023 3:16 AM EDT) BUN 46(H) 6 - 20 mg/dL 10/02/2023 3:48 AM EDT LABORATORY [facility] Creatinine 2.1(H) 0.6 - 1.2 mg/dL 10/02/2023 3:48 AM EDT LABORATORY GM Estimated Glomerular Filtration Rate 31(L) >=60 mL/min 10/02/2023 3:48 AM EDT LABORATORY [facility] Comment:eGFR is calculated b ased on the CKD-EPI 2020 equation Sodium 140 135 - 146 mmol/L 10/02/2023 3:48 AM EDT LABORATORY [facility] Potassium 3.9 3.5 - 5.1 mmol/L 10/02/2023 3:48 AM EDT LABORATORY [facility] Chloride 111(H) 98 - 107 mmol/L 10/02/2023 3:48 AM EDT LABORATORY [facility] CO2 20(L) 22 - 32 mmol/L 10/02/2023 3:48 AM EDT LAB[facility]ATORY [facility] Anion Gap 9 7 - 15 mmol/L 10/02/2023 3:48 AM EDT LABORATORY [facility] Glucose 88 70 - 120 mg/dL 10/02/2023 3:48 AM EDT LAB[facility]ATORY [facility] Calcium 7.8(L) 8.4 - 10.2 mg/dL 10/02/2023 3:48 AM EDT LABORATORY [facility] Albumin 2.4(L) 3.8 - 5.0 g/dL 10/02/2023 3:48 AM EDT LABORATORY [facility] Phosphorus 3.1 2.5 - 4.8 mg/dL 10/02/2023 3:48 AM EDT LABORATORY [facility] Blood Venous blood specimen / Unknown Venipuncture / Unknown 10/02/2023 3:16 AM EDT 10/02/2023 3:20 AM EDT Pankaj Gibson DO LAB BLOOD ORDERABLES LABORATORY [facility] [address] [place] [address] * (ABNORMAL) CBC (10/02/2023 3:16 AM EDT) WBC 5.99 4.00 - 10.80 K/uL 10/02/2023 3:29 AM EDT LABORATORY [facility] RBC 2.34 4.50 - 5.25 M/uL 10/02/2023 3:29 AM EDT LAB[facility]ATORY [facility] HGB 8.5(L) 14.0 - 16.8 g/dL 10/02/2023 3:29 AM EDT LABORATORY [facility] HCT 26.0(L) 40.0 - 48.4 % 10/02/2023 3:29 AM EDT LABORATORY [facility] MCV 111.1 82.0 - 99.5 fL 10/02/2023 3:29 AM EDT LABORATORY [facility] MCH 36.3 27.0 - 34.0 pg 10/02/2023 3:29 AM EDT LABORATORY [facility] MCHC 32.7 32.0 - 36.0 g/dL 10/02/2023 3:29 AM EDT LABORATORY [facility] RDW 12.7 11.5 - 15.5 % 10/02/2023 3:29 AM EDT LABORATORY [facility] PLT 79(L) 140 - 400 K/uL 10/02/2023 3:29 AM EDT LABORATORY [facility] MPV 10.4 6.6 - 11.1 fL 10/02/2023 3:29 AM EDT LABORATORY [facility] nRBCs 0 <=0 /100 WBCs 10/02/2023 3:29 AM EDT LABORATORY [facility] Blood Venous blood specimen / Unknown Venipuncture / Unknown 10/02/2023 3:16 AM EDT 10/02/2023 3:20 AM EDT Pankaj Gibson DO LAB BLOOD ORDERABLES LABORATORY [facility] [address] [place] [address] * (ABNORMAL) PT INR (10/02/2023 3:16 AM EDT) [facility] Prothrombin Time 16.2(H) 11.6 - 15.2 seconds 10/02/2023 3:42 AM EDT LABORATORY [facility] INR 1.3(H) 0.8 - 1.2 10/02/2023 3:42 AM EDT LABORATORY [facility] Blood Venous blood specimen / Unknown Venipuncture / Unknown 10/02/2023 3:16 AM EDT 10/02/2023 3:20 AM EDT Narrative LABORATORY C - 10/02/2023 3:42 AM EDT Warfarin Therapy INR: 2.0-3.0 conventional anticoagulation INR: 2.5-3.5 high intensity anticoagulation [facility]ankajCarticipate LAB BLOOD ORDERABLES Performing Organization Address City/[facility]/ZIP Co de Phone Number LABORATORY [facility] [address] [place] [address] * URINE IMMUNOFIXATION, BENCE TOLEDO PROTEIN, 24 HOUR URINE (10/01/2023 9:46 PM EDT) Protein, Urine 2,197 mg/dL 10/02/2023 3:13 PM EDT LABORATORY [facility] Comment:Run on dilution. Immunofixation Interpretation Monoclonal intact immunoglobulins present. No monoclonal free light chain detected. A monoclonal IgG kappa gammopathy is present. 10/02/2023 3:13 PM EDT LABORATORY [facility] Urine Non-blood Collection / Unknown 10/01/2023 9:46 PM EDT 10/01/2023 10:08 PM EDT [facility] LAB URINE ORDERABLES Performing Organization Address [facility] de Phone Number LABORATORY [facility] [address] [place] [address] * URINE PROTEIN ELECTROPHORESIS REFLEX PROFILE, 24 HOUR URINE (10/01/2023 9:46 PM EDT) Protein, Urine 2,197 mg/dL 10/02/2023 3:13 PM EDT LABORATORY [facility] Comment:Run on dilution. Electrophoresis Interpretation Paraprotein present. See urine immunofixation results. 10/02/2023 3:13 PM EDT LABORATORY [facility] Albumin, Urine 1,474.0 mg/dL 10/02/2023 3:13 PM EDT LABORATORY [facility] Globulins, Urine 723.0 mg/dL 10/02/20 3:13 PM EDT LABORATORY [facility] M Keaton, Urine 49.5 mg/dL 10/02/2023 3:13 PM EDT LABORATORY [facility] Urine Non-blood Collection / Unknown 10/01/2023 9:46 PM EDT 10/01/2023 10:08 PM EDT [facility] LAB URINE ORDERABLES Performing Organization Address [facility] de Phone Number LABORATORY [facility] [address] [place] [address] * (ABNORMAL) RENAL FUNCTION PANEL (10/01/2023 6:03 AM EDT) BUN 42(H) 6 - 20 mg/dL 10/01/2023 6:45 AM EDT LABORATORY [facility] Creatinine 2.1(H) 0.6 - 1.2 mg/dL 10/01/2023 6:45 AM EDT LABORATORY [facility] Estimated Glomerular Filtration Rate 31(L) >=60 mL/min 10/01/2023 6:45 AM EDT LABORATORY [facility] Comment:eGFR is calculated b ased on the CKD-EPI 2020 equation Sodium 142 135 - 146 mmol/L 10/01/2023 6:45 AM EDT LABORATORY [facility] Potassium 4.2 3.5 - 5.1 mmol/L 10/01/2023 6:45 AM EDT LABORATORY C Chloride 111(H) 98 - 107 mmol/L 10/01/2023 6:45 AM EDT LABORATORY C CO2 21(L) 22 - 32 mmol/L 10/01/2023 6:45 AM EDT LABORATORY C Anion Gap 10 7 - 15 mmol/L 10/01/2023 6:45 AM EDT LABORATORY C Glucose 93 70 - 120 mg/dL 10/01/2023 6:45 AM EDT LABORATORY [facility] Calcium 7.9(L) 8.4 - 10.2 mg/dL 10/01/2023 6:45 AM EDT LABORATORY [facility] Albumin 2.8(L) 3.8 - 5.0 g/dL 10/01/2023 6:45 AM EDT LABORATORY [facility] Phosphorus 2.8 2.5 - 4.8 mg/dL 10/01/2023 6:45 AM EDT LABORATORY [facility] Blood Venous blood specimen / Unknown Venipuncture / Unknown 10/01/2023 6:03 AM EDT 10/01/2023 6:09 AM EDT Pankaj Gibson DO LAB BLOOD ORDERABLES LABORATORY [facility] [address] [place] [address] * (ABNORMAL) CBC (10/01/2023 6:03 AM EDT) WBC 6.23 4.00 - 10.80 K/uL 10/01/2023 6:56 AM EDT LABORATORY [facility] RBC 2.61 4.50 - 5.25 M/uL 10/01/2023 6:56 AM EDT LABORATORY [facility] HGB 9.3(L) 14.0 - 16.8 g/dL 10/01/2023 6:56 AM EDT LABORATORY [facility] HCT 28.6(L) 40.0 - 48.4 % 10/01/2023 6:56 AM EDT LABORATORY [facility] MCV 109.6 82.0 - 99.5 fL 10/01/2023 6:56 AM EDT LABORATORY [facility] MCH 35.6 27.0 - 34.0 pg 10/01/2023 6:56 AM EDT LABORATORY [facility] MCHC 32.5 32.0 - 36.0 g/dL 10/01/2023 6:56 AM EDT LABORATORY [facility] RDW 12.7 11.5 - 15.5 % 10/01/2023 6:56 AM EDT LABORATORY [facility] PLT 94(L) 140 - 400 K/uL 10/01/2023 6:56 AM EDT LABORATORY [facility] MPV 10.5 6.6 - 11.1 fL 10/01/2023 6:56 AM EDT LABORATORY [facility] nRBCs 0 <=0 /100 WBCs 10/01/2023 6:56 AM EDT LABORATORY [facility] Blood Venous blood specimen / Unknown Venipuncture / Unknown 10/01/2023 6:03 AM EDT 10/01/2023 6:09 AM EDT Pankaj Gibson DO LAB BLOOD ORDERABLES LABORATORY [facility] [address] [place] [address] * PT INR (10/01/2023 6:03 AM EDT) Prothrombin Time 14.9 11.6 - 15.2 seconds 10/01/2023 6:36 AM EDT LABORATORY [facility] INR 1.2 0.8 - 1.2 10/01/2023 6:36 AM EDT LABORATORY [facility] Blood Venous blood specimen / Unknown Venipuncture / Unknown 10/01/2023 6:03 AM EDT 10/01/2023 6:09 AM EDT [facility] LABORATORY [facility] - 10/01/2023 6:36 AM EDT Warfarin Therapy INR: 2.0-3.0 conventional anticoagulation INR: 2.5-3.5 high intensity anticoagulation Pankaj Gibson DO LAB BLOOD ORDERABLES LABORATORY [facility] [address] [place] [address] * FLOW CYTOMETRY, LEUKEMIA LYMPHOMA PANEL (09/30/2023 4:30 PM EDT) Pathologist [facility] Indication for Flow Testing Monoclonal gammopathy. 10/02/2023 2:38 PM EDT LABORATORY [facility] Viability (%) Specimen A: 93 % 10/02/2023 2:38 PM EDT LABORATORY [facility] Cell Count Specimen A: 1080 Cells/uL in 3 mL of fluid Cells/u L in mL of Fluid 10/02/2023 2:38 PM EDT LABORATORY [facility] Gross Description A. Bone Marrow, Aspirate. Specimen: A, Source: Bone Marrow, Aspirate See 10/02/2023 2:38 PM EDT LABORATORY [facility] Flow Interpretation BONE MARROW: - A kappa monotypic plasma cell population identified (1% of total events analyzed). See Comment COMMENT: Plasma cell levels tend to be underrepresented in the specimens prepared for flow cytometric analysis. Correlate with clinical and laboratory information, radiology, marrow morphology ([id number]) and ancillary studies, e.g., cytogenetics/FISH, etc. is recommended. FLOW CYTOMETRIC ANALYSIS: CD45 vs side scatter shows 5% of total events in the lymphoid region, 4% in the monocytic region, <1% in the progenitor/blast region, 80% in the granulocytic region and the remainder of events in the CD45(-)/erythroid/ debris region. A monotypic plasma cell population is identified, comprising ~1% of total events analyzed. They are CD138+, CD38+(bright), CD45-, CD56-, CD117+(dim), cyto-kappa+, cyto-lambda-. 10/02/2023 2:38 PM EDT LABORATORY [facility] Markers Performed A1: c KAPPA (FITC), c LAMBDA (PE), CD38 ([id number]), CD138 (APC), CD56 (APC R700), CD45 (APCH7), CD117 (BV605). 10/02/2023 2:38 PM EDT LABORATORY [facility] Performing Labs 2:38 PM EDT LABORATORY [facility] Comment:Performed at [facility] ([facility]), [facility] [place] [address]. Flow Disclaimer Photographic images and diagrams represent swartz findings in this case; they are not intended to replace a complete review of the final diagnostic report. The following statement applies to Flow Cytometry, Histology, In situ Hybridization Assays and Molecular Genetics. This test was developed and performed at [facility] and its performance characteristics determined by [facility] [employer]. It has not been cleared or approved by the U.S. Food and Drug Administration. The FDA has determined that such clearance or approval is not necessary. This test is used for clinical purposes. It should not be regarded as investigational or for research. Special stains, including histochemical stains, and studies using immunologic and JOHANN methodology (where applicable) are performed with appropriate positive and negative control reactions. 10/02/2023 2:38 PM EDT LABORATORY [facility] Bone Marrow Specimen from bone marrow obtained by aspiration / Unknown Non-blood Collection / Unknown 09/30/2023 4:30 PM EDT 10/02/2023 9:39 AM EDT Sid Anguiano PA-C LAB PATHOLOGY ORD ERABLES LABORATORY [place] [address] [place] [address] * BONE MARROW WITH REFLEX TESTING (09/30/2023 4:30 PM EDT) Diagnosis Bone marrow, left posterior iliac crest, aspirate, biopsy, touch imprints: - Limited aspirate with a few atypical plasma cells; Core biopsy is inadequate for evaluation. See Comment Peripheral blood: - Macrocytic anemia; thrombocytopenia. Comment: Aspirate has no spicule with hemodilute, limited for review. The core biopsy consists entirely of cortical bone and periosteum with a small amount of fatty subcortical marrow and rare hematopoietic elements and is inadequate for evaluation. In conjunction with immunology findings of monoclonal gammopathy and concurrent flow cytometry, the presence of a few atypical plasma cells likely represent plasma cell neoplasm. However, it is unknown the extent of involvement by plasma cell neoplasm in the marrow. Correlation with clinical, laboratory, radiologic findings, and the pending cytogenetic and FISH analysis findings is recommended. The results of the latter analysis will be issued in an addendum report. 10/02/2023 3:41 PM EDT LABORATORY [facility] Clinical History Multiple myeloma, new diagnosis 10/02/2023 3:41 PM EDT LABORATORY [facility] Bone Marrow Aspirate Microscopic Findings Aspirate Adequacy: no spicules; low cellularity (hemodilute). Core Touch Imprint Adequacy: insufficient cellularity (noncontributory) . Blasts: within normal limits. Myelopoiesis: full spectrum of maturation; no dysplasia identified. Erythropoiesis: full spectrum of maturation; no dysplasia identified. Megakaryocytes: minimal to absent. Lymphocytes: within normal limits. Plasma Cells: present with a few a typical forms. 10/02/2023 3:41 PM EDT LABORATORY [facility] Iron Status Stainable Iron: inadequate. Number of Sideroblasts: N/A . Ring Sideroblasts: not identified. 10/02/2023 3:41 PM EDT LABORATORY [facility] Bone Marrow Biopsy and Clot Microscopic Findings Core Biopsy Adequacy: cortical bone and periosteum with insufficient marrow present. Clot Section Adequacy: not submitted or available. 10/02/2023 3:41 PM EDT LABORATORY [facility] Peripheral Blood Microscopic Findings CBC resulted date/time: 09/30/2023 0710 EDT. WBC: 6.65 K/uL, HGB: 9.8 g/dL, MCV: 110.1 fL, RDW: 12.7 %, PLT: 105 K/uL Red Blood Cells: macrocytic red blood cells. White Blood Cells: normal white blood cell morphology. Platelets: slightly decreased in number; normal platelet morphology. 10/02/2023 3:41 PM EDT LABORATORY [facility] Bone Marrow Aspirate Differential Value % Reference Range % Blasts 1 0-3 Early myeloid precursors 11 11-15 Neutrophils and other late precursors 44 22-40 Eosinophils and precursors 1 1-5 Monocytes 1 0-2 Erythroid precursors 35 15-25 Lymphocytes 4 10-15 Plasma Cells 3 0-1 10/02/2023 3:41 PM EDT LABORATORY [facility] Peripheral Blood Differential Value % Reference Range % Neutrophils 67 40-75 Lymphocytes 18 18-42 Monocytes 11 1-11 Eosinophils 4 0-6 10/02/2023 3:41 PM EDT LABORATORY [facility] Gross Description B. Bone Marrow Biopsy, Left Iliac Crest. Received in B+ fixative with a container labeled with "Leonidas Troy", "[id number]", "[id number]" and "bone marrow biopsy, left iliac crest". Received is a red-brown cylindrical portion of bone measuring 0.8 x 0.2 cm. The specimen is wrapped and submitted in B1 following decalcification. Grossed By: ERIC Braga 10/02/2023 3:41 PM EDT LABORATORY [facility] Sign Out Location Pathologist sign out performed at [facility] ([facility]), [address] [place] [address]. 10/02/2023 3:41 PM EDT LABORATORY [facility] Photographic images and diagrams represent swartz findings in this case; they are not intended to replace a complete review of the final diagnostic report. The following statement applies to Flow Cytometry, Histology, In situ Hybridization Assays and Molecular Genetics. This test was developed and performed at [facility] and its performance characteristics determined by [facility] [employer]. It has not been cleared or approved by the U.S. Food and Drug Administration. The FDA has determined that such clearance or approval is not necessary. This test is used for clinical purposes. It should not be regarded as investigational or for research. Special stains, including histochemical stains, and studies using immunologic and JOHANN methodology (where applicable) are performed with appropriate positive and negative control reactions. 10/02/2023 3:41 PM EDT LABORATORY [facility] Bone Marrow Venous blood specimen / Unknown Non-blood Collection / Unknown 09/30/2023 4:30 PM EDT 09/30/2023 4:34 PM EDT Bone marrow specimen (specimen) (Bone Marrow Biopsy, Left Iliac Crest) Non-blood Collection / Unknown 09/30/2023 4:30 PM EDT 09/30/2023 4:34 PM EDT Bone marrow specimen (specimen) Venous blood specimen / Unknown 09/30/2023 4:30 PM EDT 09/30/2023 4:35 PM EDT Sid Anguiano PA-C LAB PATHOLOGY ORD ERABLES LABORATORY [facility] [address] [place] [address] LABORATORY [facility] [address] [place] [address] * BONE MARROW ASPIRATE GREEN (FLOW) (09/30/2023 4:30 PM EDT) Pathologist [facility] Bone Marrow for Flow Cytometry Yes 10/02/2023 9:39 AM EDT LABORATORY GM Bone Marrow Specimen from bone marrow obtained by aspiration / Unknown Non-blood Collection / Unknown 09/30/2023 4:30 PM EDT 09/30/2023 4:34 PM EDT Sid HOOVER-Kristen LAB MOLECULAR ORD ERABLES Performing Organization Address City/[facility]/ZIP Co de Phone Number LABORATORY [facility] [address] [place] [address] * (ABNORMAL) DIFFERENTIAL, AUTOMATED (09/30/2023 6:37 AM EDT) Pathologist [facility] WBC 6.65 4.00 - 10.80 K/uL 09/30/2023 9:32 AM EDT LABORATORY [facility] Neutrophils % 65.7 40.0 - 75.0 % 09/30/2023 9:32 AM EDT LABORATORY [facility] Lymphocytes % 15.7(L) 18.0 - 42.0 % 09/30/2023 9:32 AM EDT LABORATORY [facility] Monocytes % 12.3(H) 1.0 - 11.0 % 09/30/2023 9:32 AM EDT LABORATORY [facility] Eosinophils % 5.0 0.0 - 6.0 % 09/30/2023 9:32 AM EDT LABORATORY [facility] Basophils % 1.0 0.0 - 2.0 % 09/30/2023 9:32 AM EDT LABORATORY [facility] Immature Granulocytes % 0.3 0.0 - 2.0 % 09/30/2023 9:32 AM EDT LABORATORY [facility] Absolute Neutrophils 4.44 1.80 - 7.70 K/uL 09/30/2023 9:32 AM EDT LABORATORY [facility] Absolute Lymphocytes 1.06 1.00 - 4.80 K/ul 09/30/2023 9:32 AM EDT LABORATORY [facility] Absolute Monocytes 0.83 0.00 - 1.10 K/uL 09/30/2023 9:32 AM EDT LABORATORY [facility] Absolute Eosinophils 0.34 0.00 - 0.70 K/uL 09/30/2023 9:32 AM EDT LABORATORY [facility] Absolute Basophils 0.07 0.00 - 0.20 K/uL 09/30/2023 9:32 AM EDT LABORATORY [facility] Absolute Immature Granulocytes 0.02 0.00 - 0.20 K/uL 09/30/2023 9:32 AM EDT LABORATORY [facility] Blood Venous blood specimen / Unknown Venipuncture / Unknown 09/30/2023 6:37 AM EDT 09/30/2023 6:57 AM EDT Bo Allen MD LAB BLOOD ORDERABLES LABORATORY [facility] [address] [place] [address] * (ABNORMAL) RENAL FUNCTION PANEL (09/30/2023 6:37 AM EDT) BUN 38(H) 6 - 20 mg/dL 09/30/2023 7:24 AM EDT LABORATORY [facility] Creatinine 1.7(H) 0.6 - 1.2 mg/dL 09/30/2023 7:24 AM EDT LABORATORY [facility] Estimated Glomerular Filtration Rate 40(L) >=60 mL/min 09/30/2023 7:24 AM EDT LABORATORY [facility] Comment:eGFR is calculated b ased on the CKD-EPI 2020 equation Sodium 140 135 - 146 mmol/L 09/30/2023 7:24 AM EDT LABORATORY [facility] Potassium 4.1 3.5 - 5.1 mmol/L 09/30/2023 7:24 AM EDT LABORATORY [facility] Chloride 111(H) 98 - 107 mmol/L 09/30/2023 7:24 AM EDT LABORATORY [facility] CO2 22 22 - 32 mmol/L 09/30/2023 7:24 AM EDT LABORATORY [facility] Anion Gap 7 7 - 15 mmol/L 09/30/2023 7:24 AM EDT LABORATORY [facility] Glucose 98 70 - 120 mg/dL 09/30/2023 7:24 AM EDT LABORATORY [facility] Calcium 8.0(L) 8.4 - 10.2 mg/dL 09/30/2023 7:24 AM EDT LABORATORY [facility] Albumin 2.9(L) 3.8 - 5.0 g/dL 09/30/2023 7:24 AM EDT LABORATORY [facility] Phosphorus 2.9 2.5 - 4.8 mg/dL 09/30/2023 7:24 AM EDT LABORATORY [facility] Blood Venous blood specimen / Unknown Venipuncture / Unknown 09/30/2023 6:37 AM EDT 09/30/2023 6:57 AM EDT Pankaj Arthur LAB BLOOD ORDERABLES LABORATORY [facility] [address] [place] [address] * (ABNORMAL) CBC (09/30/2023 6:37 AM EDT) WBC 6.65 4.00 - 10.80 K/uL 09/30/2023 7:10 AM EDT LABORATORY [facility] RBC 2.78 4.50 - 5.25 M/uL 09/30/2023 7:10 AM EDT LABORATORY [facility] HGB 9.8(L) 14.0 - 16.8 g/dL 09/30/2023 7:10 AM EDT LABORATORY [facility] HCT 30.6(L) 40.0 - 48.4 % 09/30/2023 7:10 AM EDT LABORATORY [facility] MCV 110.1 82.0 - 99.5 fL 09/30/2023 7:10 AM EDT LABORATORY [facility] MCH 35.3 27.0 - 34.0 pg 09/30/2023 7:10 AM EDT LABORATORY [facility] MCHC 32.0 32.0 - 36.0 g/dL 09/30/2023 7:10 AM EDT LABORATORY [facility] RDW 12.7 11.5 - 15.5 % 09/30/2023 7:10 AM EDT LABORATORY [facility] PLT 105(L) 140 - 400 K/uL 09/30/2023 7:10 AM EDT LABORATORY [facility] MPV 10.5 6.6 - 11.1 fL 09/30/2023 7:10 AM EDT LABORATORY [facility] nRBCs 0 <=0 /100 WBCs 09/30/2023 7:10 AM EDT LABORATORY [facility] Blood Venous blood specimen / Unknown Venipuncture / Unknown 09/30/2023 6:37 AM EDT 09/30/2023 6:57 AM EDT [facility] LAB BLOOD ORDERABLES Performing Organization Address City/[facility]/ZIP Co de Phone Number LABORATORY [facility] [address] [place] [address] * PT INR (09/30/2023 6:37 AM EDT) [facility] Signature Prothrombin Time 14.9 11.6 - 15.2 seconds 09/30/2023 7:19 AM EDT LABORATORY [facility] INR 1.2 0.8 - 1.2 09/30/2023 7:19 AM EDT LABORATORY [facility] Blood Venous blood specimen / Unknown Venipuncture / Unknown 09/30/2023 6:37 AM EDT 09/30/2023 6:57 AM EDT Narrative LABORATORY [facility] - 09/30/2023 7:19 AM EDT Warfarin Therapy INR: 2.0-3.0 conventional anticoagulation INR: 2.5-3.5 high intensity anticoagulation [facility] LAB BLOOD ORDERABLES Performing Organization Address City/[facility]/ZIP Co de Phone Number LABORATORY [facility] [address] [place] [address] * IR BIOPSY (09/29/2023 4:22 PM EDT) Anatomical Region Laterality Modality Any Computed Tomogra phy 09/29/2023 6:40 PM EDT Impressions 10/01/2023 7:27 AM EDT IMPRESSION: Ultrasound-guided percutaneous right random renal biopsy. PLAN: Ordering clinician to follow up results with the patient. I have personally reviewed this examination and agree with the resident/fellow physician's interpretation. Narrative 10/01/2023 7:27 AM EDT PROCEDURE: Ultrasound-guided percutaneous right random renal biopsy. INDICATION: 83-year-old male patient with a history of nephrotic syndrome presenting for random renal biopsy. ATTENDING (OPERATING PHYSICIAN): Stanley Ivy MD SCRUBBED RESIDENT (OPERATING PHYSICIAN): Stanley Farnsworth D.O. SUPPORTING PROVIDER (PRODUCTION WEIGHER): None. CONSENT: After a detailed discussion of the procedure, risks, benefits and alternative treatment options, informed consent was obtained. TIME OUT: A time out procedure was performed. The patient's identification was verified. Informed consent with agreement of procedure, site and position was obtained. All necessary equipment was available prior to procedure. CONTRAST: No contrast administered. COMPLICATIONS: None. ANESTHESIA: Local lidocaine. IV Versed. IV Fentanyl. SEDATION TIME: Start to end: 1541 to 1620. Qualified nurse sedation observer Sofia Acevedo RN. MEDICATIONS: See MAR PROCEDURE DESCRIPTION: After survey ultrasound images of the right flank were performed, the right lower pole was studied. Then the access site was selected and prepped and draped in the usual sterile fashion. The skin and deep soft tissues were anesthetized. Under ultrasound guidance a 17 gauge coaxial needle was advanced just within the renal margin. After satisfactory positioning was confirmed, the inner stylet was removed and three 18 gauge core biopsy specimens were obtained and placed in a vial of sterile saline. All specimen samples were sent to pathology who confirmed greater than 30 glomeruli were obtained. The cannula was then removed, hemostasis was achieved, and the site was dressed. The patient tolerated the procedure well. The procedure was performed under the personal supervision of Dr. Ivy who was present for the entire procedure. FINDINGS: Limited survey ultrasound demonstrates a right kidney without hydronephrosis. Further imaging shows the coaxial needle is seen within the margin of the target with more than adequate distance for the biopsy throws. No immediate complication on post biopsy imaging. Procedure Note Stanley Ivy MD - 10/01/2023 PROCEDURE: Ultrasound-guided percutaneous right random renal biopsy. INDICATION: 83-year-old male patient with a history of nephrotic syndromepresenting for random renal biopsy. ATTENDING (OPERATING PHYSICIAN): Stanley Ivy MD SCRUBBED RESIDENT (OPERATING PHYSICIAN): Stanley Farnsworth D.O. SUPPORTING PROVIDER (PRODUCTION WEIGHER): None. CONSENT: After a detailed discussion of the procedure, risks, benefits andalternative treatment options, informed consent was obtained. TIME OUT: A time out procedure was performed. The patient's identificationwas verified. Informed consent with agreement of procedure, site andposition was obtained. All necessary equipment was available prior toprocedure. CONTRAST: No contrast administered. COMPLICATIONS: None. ANESTHESIA: Local lidocaine. IV Versed. IV Fentanyl. SEDATION TIME: Start to end: 1541 to 1620. Qualified nurse sedationobserver Sofia Acevedo RN. MEDICATIONS: See MAR PROCEDURE DESCRIPTION: After survey ultrasound images of the right flankwere performed, the right lower pole was studied. Then the access sitewas selected and prepped and draped in the usual sterile fashion. The skinand deep soft tissues were anesthetized. Under ultrasound guidance a 17gauge coaxial needle was advanced just within the renal margin. Aftersatisfactory positioning was confirmed, the inner stylet was removed andthree 18 gauge core biopsy specimens were obtained and placed in a vial ofsterile saline. All specimen samples were sent to pathology who confirmedgreater than 30 glomeruli were obtained. The cannula was then removed,hemostasis was achieved, and the site was dressed. The patient toleratedthe procedure well. The procedure was performed under the personal supervision of who was present for the entire procedure. FINDINGS: Limited survey ultrasound demonstrates a right kidney withouthydronephrosis. Further imaging shows the coaxial needle is seen within the margin of thetarget with more than adequate distance for the biopsy throws. Noimmediate complication on post biopsy imaging. IMPRESSION IMPRESSION: Ultrasound-guided percutaneous right random renal biopsy. PLAN: Ordering clinician to follow up results with the patient. I have personally reviewed this examination and agree with the resident/fellow physician's interpretation. Dimitry Garcia DO RAD SPECIAL PROCEDUR ES * SURGICAL PATHOLOGY (09/29/2023 3:47 PM EDT) Final Diagnosis A. 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 Interstitial fibrosis and tubular atrophy, 10%. Arteriosclerosis, moderate. Comment: There is no evidence of paraprotein-related renal injury in the current biopsy. Testing for additional antigens associated with membranous glomerulopathy is pending; results will be reported in an addendum. This case was discussed with Dr. Lester on 09/30/2023 and 10/01/2023. 3 5:29 PM EDT LABORATORY [facility] Clinical History renal bx 10/01/20 2 3 5:29 PM EDT LABORATORY [facility] Gross Description A. Renal Pelvis. Received in saline with a container labeled with "Leonidas Troy", "[id number]", "1940" and " renal pelvis". Received are 4 cores of ballard tissue, ranging in size from 0.9 cm to 2.1 cm. A portion is submitted in 3% glutaraldehyde for electron microscopy. An additional portion is snap frozen for direct immunofluorescence. The remaining specimen is submitted in cassettes A1 and A4. Gross By: LY 3 5:29 PM EDT LABORATORY [facility] Microscopic Description LIGHT MICROSCOPY: Tissue sections are stained with Hematoxylin & Eosin (x3), Periodic Acid Peace (x3), [place] Methenamine Silver (x1), Rashi Trichrome (x1), and Thioflavin-T (x1). All controls are valid. Four cores of renal tissue are present, consisting of approximately 70% cortex. 101 glomeruli are identified, 10 of which are obsolescent. The viable glomeruli exhibit diffuse and global basement membrane thickening with spike formation, best seen on silver stains. No definitive Neither endocapillary nor extracapillary hypercellularity is seen. There is mild mesangial matrix expansion and mild/focal mesangial hypercellularity. The arterioles exhibit moderate hyaline sclerosis, and larger arteries exhibit moderate fibrointimal thickening. There is mild and patchy interstitial fibrosis and associated tubular atrophy, estimated at 10%. There is focal non-specific chronic interstitial inflammation. The tubules exhibit patchy epithelial simplification and sloughing, consistent with focal acute injury. No atypical casts or crystals are seen. Thioflavin-T stains for amyloid are negative via fluorescence microscopy. DIRECT IMMUNOFLUORESCENCE: Frozen tissue sections were stained with immunoreactants to IgG, IgA, IgM, C3, C1q, kappa, lambda, albumin, and fibrinogen. Portions of eight glomeruli are present. There is diffuse and global, finely granular, peripheral capillary loop fluorescence with IgG (4+), IgA (trace), C3 (2-3+), kappa (3+), and lambda (3+). Albumin highlights protein resorption droplets within proximal tubular epithelial cells. [place] and lambda highlight the tubulointerstitium equally. No significant fluorescence is identified with any of the other immunoreactants. Internal antigens within the kidney parenchyma serve as positive and negative controls. ELECTRON MICROSCOPY: Three glomeruli are seen in the tissue received in glutaraldehyde. Mesangial matrix is mildly increased. There are diffuse and global subepithelial immune deposits with prominent associated spike formation. Focal basement membrane remodeling is noted. No mesangial or subendothelial deposits are seen. Basement membranes appear normal in thickness. Epithelial cells show moderate foot process effacement. Tubulo-reticular inclusions and extraglomerular immune deposits are not seen. JMS) spike formation IgG IgA IgM C3 [place] Lambda EM) subepithelial deposits and spike formation 3 5:29 PM EDT LABORATORY [facility] Intraoperative Diagnosis A. Renal Pelvis. Date of biopsy: 09/29/2023 Time of biopsy: 1600 4 total cores of renal tissue received with greater than 30 glomeruli identified, adequate for interpretation Reported to: Dr. Ivy Reported by: Dr. Esposito's 4 and 1 small fragments of core biopsy submitted in formalin for light microscopy 0.5 cm long portion of core biopsy submitted for direct immunofluorescence studies 0.2 item cm long portion of core biopsy submitted in glutaraldehyde for electron microscopy 3 5:29 PM EDT LABORATORY [facility] Sign Out Location Pathologist sign out performed at [facility] ([facility]), [address] [place] [id number]. 3 5:29 PM EDT LABORATORY [facility] Photographic images and diagrams represent swartz findings in this case; they are not intended to replace a complete review of the final diagnostic report. The following statement applies to Flow Cytometry, Histology, In situ Hybridization Assays and Molecular Genetics. This test was developed and performed at [facility] and its performance characteristics determined by [facility] [employer]. It has not been cleared or approved by the U.S. Food and Drug Administration. The FDA has determined that such clearance or approval is not necessary. This test is used for clinical purposes. It should not be regarded as investigational or for research. Special stains, including histochemical stains, and studies using immunologic and JOHANN methodology (where applicable) are performed with appropriate positive and negative control reactions. 5:29 PM EDT LABORATORY [facility] Tissue Specimen from wound / Unknown Non-blood Collection / Unknown 09/29/2023 3:47 PM EDT 09/29/2023 4:13 PM EDT Bo Allen MD LAB PATHOLOGY ORDERA YULI LABORATORY [facility] [address] [place] [address] * (ABNORMAL) RENAL FUNCTION PANEL (09/29/2023 8:56 AM EDT) BUN 35(H) 6 - 20 mg/dL 09/29/2023 10:12 AM EDT LABORATORY [facility] Creatinine 1.5(H) 0.6 - 1.2 mg/dL 09/29/2023 10:12 AM EDT LABORATORY [facility] Estimated Glomerular Filtration Rate 45(L) >=60 mL/min 09/29/2023 10:12 AM EDT LABORATORY [facility] Comment:eGFR is calculated b ased on the CKD-EPI 2020 equation Sodium 141 135 - 146 mmol/L 09/29/2023 10:12 AM EDT LABORATORY [facility] Potassium 3.9 3.5 - 5.1 mmol/L 09/29/2023 10:12 AM EDT LABORATORY [facility] Chloride 112(H) 98 - 107 mmol/L 09/29/2023 10:12 AM EDT LABORATORY [facility] CO2 21(L) 22 - 32 mmol/L 09/29/2023 10:12 AM EDT LABORATORY [facility] Anion Gap 8 7 - 15 mmol/L 09/29/2023 10:12 AM EDT LABORATORY [facility] Glucose 86 70 - 120 mg/dL 09/29/2023 10:12 AM EDT LABORATORY [facility] Calcium 8.0(L) 8.4 - 10.2 mg/dL 09/29/2023 10:12 AM EDT LABORATORY [facility] Albumin 2.7(L) 3.8 - 5.0 g/dL 09/29/2023 10:12 AM EDT LABORATORY [facility] Phosphorus 2.3(L) 2.5 - 4.8 mg/dL 09/29/2023 10:12 AM EDT LABORATORY [facility] Blood Venous blood specimen / Unknown Venipuncture / Unknown 09/29/2023 8:56 AM EDT 09/29/2023 9:37 AM EDT Pankaj Arthur STEINBERG LAB BLOOD ORDERABLES LABORATORY [facility] [address] [place] [address] * (ABNORMAL) CBC (09/29/2023 8:56 AM EDT) WBC 5.45 4.00 - 10.80 K/uL 09/29/2023 9:52 AM EDT LABORATORY [facility] RBC 2.63 4.50 - 5.25 M/uL 09/29/2023 9:52 AM EDT LABORATORY [facility] HGB 9.3(L) 14.0 - 16.8 g/dL 09/29/2023 9:52 AM EDT LABORATORY [facility] HCT 29.3(L) 40.0 - 48.4 % 09/29/2023 9:52 AM EDT LABORATORY [facility] MCV 111.4 82.0 - 99.5 fL 09/29/2023 9:52 AM EDT LABORATORY [facility] MCH 35.4 27.0 - 34.0 pg 09/29/2023 9:52 AM EDT LABORATORY [facility] MCHC 31.7 32.0 - 36.0 g/dL 09/29/2023 9:52 AM EDT LABORATORY [facility] RDW 12.6 11.5 - 15.5 % 09/29/2023 9:52 AM EDT LABORATORY [facility] PLT 117(L) 140 - 400 K/uL 09/29/2023 9:52 AM EDT LABORATORY [facility] MPV 10.6 6.6 - 11.1 fL 09/29/2023 9:52 AM EDT LABORATORY [facility] nRBCs 0 <=0 /100 WBCs 09/29/2023 9:52 AM EDT LABORATORY [facility] Blood Venous blood specimen / Unknown Venipuncture / Unknown 09/29/2023 8:56 AM EDT 09/29/2023 9:37 AM EDT Chicopee Gibson DO LAB BLOOD ORDERABLES Performing Organization Address City/[facility]/ZIP Co de Phone Number LABORATORY [facility] [address] [place] [address] * PT INR (09/29/2023 8:56 AM EDT) Prothrombin Time 14.3 11.6 - 15.2 seconds 09/29/2023 10:14 AM EDT LABORATORY [facility] INR 1.1 0.8 - 1.2 09/29/2023 10:14 AM EDT LABORATORY [facility] Blood Venous blood specimen / Unknown Venipuncture / Unknown 09/29/2023 8:56 AM EDT 09/29/2023 9:37 AM EDT Narrative LABORATORY [facility] - 09/29/2023 10:14 AM EDT Warfarin Therapy INR: 2.0-3.0 conventional anticoagulation INR: 2.5-3.5 high intensity anticoagulation [facility] BLOOD ORDERABLES Performing Organization Address [facility] Co de Phone Number LABORATORY [address] [address] * (ABNORMAL) APTT (09/29/2023 1:57 AM EDT) aPTT 107(H) 21 - 38 seconds 09/29/2023 2:21 AM EDT LABORATORY [facility] Blood Venous blood specimen / Unknown Venipuncture / Unknown 09/29/2023 1:57 AM EDT 09/29/2023 2:01 AM EDT Narrative LABORATORY [facility] - 09/29/2023 2:21 AM EDT Anticoagulation may affect testing. Refer to [employer] Test Catalog for a list of effects. Slava Herring MD LAB BLOOD ORDERABLES Performing Organization Address City/[facility]/ZIP Co de Phone Number LABORATORY [facility] [address] [place] [address] * (ABNORMAL) APTT (09/28/2023 5:44 PM EDT) aPTT 62(H) 21 - 38 seconds 09/28/2023 6:47 PM EDT LABORATORY [facility] Blood Venous blood specimen / Unknown Venipuncture / Unknown 09/28/2023 5:44 PM EDT 09/28/2023 6:13 PM EDT Narrative LABORATORY [facility] - 09/28/2023 6:47 PM EDT Anticoagulation may affect testing. Refer to [employer] Test Catalog for a list of effects. Slava Herring MD LAB BLOOD ORDERABLES Performing Organization Address [facility] Co de Phone Number LABORATORY [place] [address] [place] [address] * (ABNORMAL) APTT (09/28/2023 10:15 AM EDT) aPTT 134(HH) 21 - 38 seconds 09/28/2023 11:03 AM EDT LABORATORY [facility] Comment:Results rechecked. Blood Venous blood specimen / Unknown Venipuncture / Unknown 09/28/2023 10:15 AM EDT 09/28/2023 10:22 AM EDT Narrative LABORATORY [facility] - 09/28/2023 11:03 AM EDT Anticoagulation may affect testing. Refer to [employer] Test Catalog for a list of effects. Slava Herring MD LAB BLOOD ORDERABLES Performing Organization Address City/[facility]/ZIP Co de Phone Number LABORATORY [facility] [address] [place] [address] * (ABNORMAL) RENAL FUNCTION PANEL (09/28/2023 4:39 AM EDT) BUN 34(H) 6 - 20 mg/dL 09/28/2023 5:26 AM EDT LABORATORY [facility] Creatinine 1.7(H) 0.6 - 1.2 mg/dL 09/28/2023 5:26 AM EDT LABORATORY [facility] Estimated Glomerular Filtration Rate 38(L) >=60 mL/min 09/28/2023 5:26 AM EDT LABORATORY [facility] Comment:eGFR is calculated b ased on the CKD-EPI 2020 equation Sodium 139 135 - 146 mmol/L 09/28/2023 5:26 AM EDT LABORATORY [facility] Potassium 4.3 3.5 - 5.1 mmol/L 09/28/2023 5:26 AM EDT LABORATORY [facility] Chloride 110(H) 98 - 107 mmol/L 09/28/2023 5:26 AM EDT LABORATORY [facility] CO2 21(L) 22 - 32 mmol/L 09/28/2023 5:26 AM EDT LABORATORY [facility] Anion Gap 8 7 - 15 mmol/L 09/28/2023 5:26 AM EDT LABORATORY [facility] Glucose 84 70 - 120 mg/dL 09/28/2023 5:26 AM EDT LABORATORY [facility] Calcium 7.9(L) 8.4 - 10.2 mg/dL 09/28/2023 5:26 AM EDT LABORATORY [facility] Albumin 2.6(L) 3.8 - 5.0 g/dL 09/28/2023 5:26 AM EDT LABORATORY [facility] Phosphorus 2.8 2.5 - 4.8 mg/dL 09/28/2023 5:26 AM EDT LABORATORY [facility] Blood Venous blood specimen / Unknown Venipuncture / Unknown 09/28/2023 4:39 AM EDT 09/28/2023 4:57 AM EDT Pankaj Gibson DO LAB BLOOD ORDERABLES LABORATORY [facility] [address] [place] [address] * (ABNORMAL) CBC (09/28/2023 4:39 AM EDT) WBC 5.93 4.00 - 10.80 K/uL 09/28/2023 5:13 AM EDT LABORATORY [facility] RBC 2.52 4.50 - 5.25 M/uL 09/28/2023 5:13 AM EDT LABORATORY [facility] HGB 9.1(L) 14.0 - 16.8 g/dL 09/28/2023 5:13 AM EDT LABORATORY [facility] HCT 28.3(L) 40.0 - 48.4 % 09/28/2023 5:13 AM EDT LABORATORY [facility] MCV 112.3 82.0 - 99.5 fL 09/28/2023 5:13 AM EDT LABORATORY [facility] MCH 36.1 27.0 - 34.0 pg 09/28/2023 5:13 AM EDT LABORATORY [facility] MCHC 32.2 32.0 - 36.0 g/dL 09/28/2023 5:13 AM EDT LABORATORY [facility] RDW 12.8 11.5 - 15.5 % 09/28/2023 5:13 AM EDT LABORATORY [facility] PLT 110(L) 140 - 400 K/uL 09/28/2023 5:13 AM EDT LABORATORY [facility] MPV 10.7 6.6 - 11.1 fL 09/28/2023 5:13 AM EDT LABORATORY [facility] nRBCs 0 <=0 /100 WBCs 09/28/2023 5:13 AM EDT LABORATORY [facility] Blood Venous blood specimen / Unknown Venipuncture / Unknown 09/28/2023 4:39 AM EDT 09/28/2023 4:57 AM EDT Pankaj Arthur LAB BLOOD ORDERABLES Performing Organization Address City/State/[facility] Co de Phone Number LABORATORY [facility] [address] [place] [address] * PT INR (09/28/2023 4:39 AM EDT) Prothrombin Time 14.9 11.6 - 15.2 seconds 09/28/2023 5:20 AM EDT LABORATORY [facility] INR 1.2 0.8 - 1.2 09/28/2023 5:20 AM EDT LABORATORY [facility] Blood Venous blood specimen / Unknown Venipuncture / Unknown 09/28/2023 4:39 AM EDT 09/28/2023 4:57 AM EDT Narrative LABORATORY [facility] - 09/28/2023 5:20 AM EDT Warfarin Therapy INR: 2.0-3.0 conventional anticoagulation INR: 2.5-3.5 high intensity anticoagulation Pankaj Gibson DO LAB BLOOD ORDERABLES Performing Organization Address [facility]/ZIP Co de Phone Number LABORATORY [facility] [address] [place] [address] * (ABNORMAL) APTT (09/28/2023 4:39 AM EDT) aPTT 74(H) 21 - 38 seconds 09/28/2023 5:25 AM EDT LABORATORY [facility] Blood Venous blood specimen / Unknown Venipuncture / Unknown 09/28/2023 4:39 AM EDT 09/28/2023 4:57 AM EDT Narrative LABORATORY [facility] - 09/28/2023 5:25 AM EDT Anticoagulation may affect testing. Refer to [employer] Test Catalog for a list of effects. Slava Herring MD LAB BLOOD ORDERABLES Performing Organization Address [facility] Co de Phone Number LABORATORY [facility] [address] [place] [address] * (ABNORMAL) APTT (09/27/2023 9:36 PM EDT) aPTT 101(H) 21 - 38 seconds 09/27/2023 10:34 PM EDT [facility] [facility] Blood Venous blood specimen / Unknown Venipuncture / Unknown 09/27/2023 9:36 PM EDT 09/27/2023 9:45 PM EDT Narrative LABORATORY [facility] - 09/27/2023 10:34 PM EDT Anticoagulation may affect testing. Refer to [employer] Test Catalog for a list of effects. Slava Herring MD LAB BLOOD ORDERABLES Performing Organization Address [facility]/ZIP Co de Phone Number LABORATORY [facility] [address] [place] [address] * (ABNORMAL) APTT (09/27/2023 3:01 PM EDT) aPTT 81(H) 21 - 38 seconds 09/27/2023 3:37 PM EDT LABORATORY [facility] Blood Venous blood specimen / Unknown Venipuncture / Unknown 09/27/2023 3:01 PM EDT 09/27/2023 3:06 PM EDT Narrative [facility] - 09/27/2023 3:37 PM EDT Anticoagulation may affect testing. Refer to [employer] Test Catalog for a list of effects. Slava Herring MD LAB BLOOD ORDERABLES LABORATORY [facility] [address] [place] [address] * (ABNORMAL) RENAL FUNCTION PANEL (09/27/2023 5:05 AM EDT) BUN 34(H) 6 - 20 mg/dL 09/27/2023 5:51 AM EDT [facility] Creatinine 1.8(H) 0.6 - 1.2 mg/dL 09/27/2023 5:51 AM EDT [facility] Estimated Glomerular Filtration Rate 36(L) >=60 mL/min 09/27/2023 5:51 AM EDT [facility] Comment:eGFR is calculated b ased on the CKD-EPI 2020 equation Sodium 141 135 - 146 mmol/L 09/27/2023 5:51 AM EDT [facility] Potassium 4.1 3.5 - 5.1 mmol/L 09/27/2023 5:51 AM EDT [facility] Chloride 111(H) 98 - 107 mmol/L 09/27/2023 5:51 AM EDT [facility] CO2 21(L) 22 - 32 mmol/L 09/27/2023 5:51 AM EDT [facility] Anion Gap 9 7 - 15 mmol/L 09/27/2023 5:51 AM EDT [facility] Glucose 92 70 - 120 mg/dL 09/27/2023 5:51 AM EDT [facility] Calcium 8.0(L) 8.4 - 10.2 mg/dL 09/27/2023 5:51 AM EDT [facility] Albumin 2.9(L) 3.8 - 5.0 g/dL 09/27/2023 5:51 AM EDT [facility] Phosphorus 2.5 2.5 - 4.8 mg/dL 09/27/2023 5:51 AM EDT [facility] Blood Venous blood specimen / Unknown Venipuncture / Unknown 09/27/2023 5:05 AM EDT 09/27/2023 5:18 AM EDT Pankaj Arthur STEINBERG LAB BLOOD ORDERABLES [facility] [address] [place] [address] * (ABNORMAL) CBC (09/27/2023 5:05 AM EDT) WBC 7.13 4.00 - 10.80 K/uL 09/27/2023 5:43 AM EDT [facility] RBC 2.61 4.50 - 5.25 M/uL 09/27/2023 5:43 AM EDT [facility] HGB 9.4(L) 14.0 - 16.8 g/dL 09/27/2023 5:43 AM EDT [facility] HCT 28.8(L) 40.0 - 48.4 % 09/27/2023 5:43 AM EDT LAB[facility] MCV 110.3 82.0 - 99.5 fL 09/27/2023 5:43 AM EDT LAB[facility] MCH 36.0 27.0 - 34.0 pg 09/27/2023 5:43 AM EDT LAB[facility] MCHC 32.6 32.0 - 36.0 g/dL 09/27/2023 5:43 AM EDT [facility] RDW 12.8 11.5 - 15.5 % 09/27/2023 5:43 AM EDT [facility] PLT 106(L) 140 - 400 K/uL 09/27/2023 5:43 AM EDT [facility] MPV 10.6 6.6 - 11.1 fL 09/27/2023 5:43 AM EDT LAB[facility] nRBCs 0 <=0 /100 WBCs 09/27/2023 5:43 AM EDT [facility] Blood Venous blood specimen / Unknown Venipuncture / Unknown 09/27/2023 5:05 AM EDT 09/27/2023 5:18 AM EDT Pankaj Gibson DO LAB BLOOD ORDERABLES Performing Organization Address City/[facility]/ZIP Co de Phone Number LABORATORY [facility] [address] [place] [address] * PT INR (09/27/2023 5:04 AM EDT) Prothrombin Time 14.7 11.6 - 15.2 seconds 09/27/2023 5:43 AM EDT LABORATORY C INR 1.1 0.8 - 1.2 09/27/2023 5:43 AM EDT LABORATORY [facility] Blood Venous blood specimen / Unknown Venipuncture / Unknown 09/27/2023 5:04 AM EDT 09/27/2023 5:18 AM EDT Narrative LABORATORY [facility] - 09/27/2023 5:43 AM EDT Warfarin Therapy INR: 2.0-3.0 conventional anticoagulation INR: 2.5-3.5 high intensity anticoagulation Pankajkeenan Gibson DO LAB BLOOD ORDERABLES Performing Organization Address [facility] de Phone Number LABORATORY [facility] [address] [place] [address] * (ABNORMAL) APTT (09/27/2023 5:04 AM EDT) aPTT 65(H) 21 - 38 seconds 09/27/2023 5:45 AM EDT LABORATORY [facility] Blood Venous blood specimen / Unknown Venipuncture / Unknown 09/27/2023 5:04 AM EDT 09/27/2023 5:18 AM EDT Narrative LABORATORY [facility] - 09/27/2023 5:45 AM EDT Anticoagulation may affect testing. Refer to [employer] Test Catalog for a list of effects. Bo Allen MD LAB BLOOD ORDERABLES LABORATORY [address] [address] * (ABNORMAL) APTT (09/26/2023 8:38 PM EDT) aPTT 82(H) 21 - 38 seconds 09/26/2023 9:25 PM EDT LABORATORY [facility] Blood Venous blood specimen / Unknown Venipuncture / Unknown 09/26/2023 8:38 PM EDT 09/26/2023 8:42 PM EDT Narrative LABORATORY [facility] - 09/26/2023 9:25 PM EDT Anticoagulation may affect testing. Refer to [employer] Test Catalog for a list of effects. Pankaj Gibson DO LAB BLOOD ORDERABLES Performing Organization Address [facility]/ZIP Co de Phone Number LABORATORY [address] [address] * HIV ANTIGEN & ANTIBODY SCREEN W/ CONFIRMATION (09/26/2023 8:38 PM EDT) [facility] HIV Antigen & Antibody Negative Negative 09/26/2023 9:39 PM EDT LABORATORY [facility] Comment:Negative HIV-1/2 ant igen and antibody screening tset results usually indicate the absence of HIV-1 and HIV-2 infection. However, such negative results do not rule-out acute HIV infection. If acute HIV-1 infection is highly suspected, it is recommended that a specimen be submitted for detection of HIV-1 RNA. Blood Venous blood specimen / Unknown Venipuncture / Unknown 09/26/2023 8:38 PM EDT 09/26/2023 8:43 PM EDT Bo Allen MD LAB BLOOD ORDERABLES LABORATORY [address] [address] * (ABNORMAL) APTT (09/26/2023 2:03 PM EDT) aPTT 88(H) 21 - 38 seconds 09/26/2023 2:59 PM EDT LABORATORY [facility] Blood Venous blood specimen / Unknown Venipuncture / Unknown 09/26/2023 2:03 PM EDT 09/26/2023 2:13 PM EDT Narrative LABORATORY [facility] - 09/26/2023 2:59 PM EDT Anticoagulation may affect testing. Refer to [employer] Test Catalog for a list of effects. Bo Allen MD LAB BLOOD ORDERABLES Performing Organization Address [facility] Co de Phone Number LABORATORY [address] [address] * (ABNORMAL) APTT (09/26/2023 7:31 AM EDT) aPTT >150(HH) 21 - 38 seconds 09/26/2023 8:40 AM EDT LABORATORY [facility] Blood Venous blood specimen / Unknown Venipuncture / Unknown 09/26/2023 7:31 AM EDT 09/26/2023 7:43 AM EDT Narrative LABORATORY [facility] - 09/26/2023 8:40 AM EDT Anticoagulation may affect testing. Refer to [employer] Test Catalog for a list of effects. Pankaj Gibson DO LAB BLOOD ORDERABLES Performing Organization Address [facility] de Phone Number LABORATORY [address] [address] * (ABNORMAL) RENAL FUNCTION PANEL (09/26/2023 5:35 AM EDT) BUN 28(H) 6 - 20 mg/dL 09/26/2023 6:26 AM EDT LABORATORY [facility] Creatinine 1.6(H) 0.6 - 1.2 mg/dL 09/26/2023 6:26 AM EDT LABORATORY [facility] Estimated Glomerular Filtration Rate 44(L) >=60 mL/min 09/26/2023 6:26 AM EDT LABORATORY [facility] Comment:eGFR is calculated b ased on the CKD-EPI 2020 equation Sodium 144 135 - 146 mmol/L 09/26/2023 6:26 AM EDT LABORATORY [facility] Potassium 4.0 3.5 - 5.1 mmol/L 09/26/2023 6:26 AM EDT [facility] Chloride 112(H) 98 - 107 mmol/L 09/26/2023 6:26 AM EDT [facility] CO2 21(L) 22 - 32 mmol/L 09/26/2023 6:26 AM EDT [facility] Anion Gap 11 7 - 15 mmol/L 09/26/2023 6:26 AM EDT [facility] Glucose 93 70 - 120 mg/dL 09/26/2023 6:26 AM EDT [facility] Calcium 8.4 8.4 - 10.2 mg/dL 09/26/2023 6:26 AM EDT LAB[facility] Albumin 3.1(L) 3.8 - 5.0 g/dL 09/26/2023 6:26 AM EDT [facility] Phosphorus 2.8 2.5 - 4.8 mg/dL 09/26/2023 6:26 AM EDT [facility] Blood Venous blood specimen / Unknown Venipuncture / Unknown 09/26/2023 5:35 AM EDT 09/26/2023 5:49 AM EDT Pankaj Arthur STEINBERG LAB BLOOD ORDERABLES LABORATORY [facility] [address] [place] [address] * (ABNORMAL) CBC (09/26/2023 5:35 AM EDT) WBC 6.90 4.00 - 10.80 K/uL 09/26/2023 6:15 AM EDT [facility] RBC 2.63 4.50 - 5.25 M/uL 09/26/2023 6:15 AM EDT LAB[facility] HGB 9.3(L) 14.0 - 16.8 g/dL 09/26/2023 6:15 AM EDT [facility] HCT 29.5(L) 40.0 - 48.4 % 09/26/2023 6:15 AM EDT LAB[facility] MCV 112.2 82.0 - 99.5 fL 09/26/2023 6:15 AM EDT LAB[facility] MCH 35.4 27.0 - 34.0 pg 09/26/2023 6:15 AM EDT LABORATORY [facility] MCHC 31.5 32.0 - 36.0 g/dL 09/26/2023 6:15 AM EDT LABORATORY [facility] RDW 12.9 11.5 - 15.5 % 09/26/2023 6:15 AM EDT LABORATORY [facility] PLT 104(L) 140 - 400 K/uL 09/26/2023 6:15 AM EDT LABORATORY [facility] MPV 11.2 6.6 - 11.1 fL 09/26/2023 6:15 AM EDT LABORATORY [facility] nRBCs 0 <=0 /100 WBCs 09/26/2023 6:15 AM EDT LABORATORY [facility] Blood Venous blood specimen / Unknown Venipuncture / Unknown 09/26/2023 5:35 AM EDT 09/26/2023 5:49 AM EDT [facility]aj [facility] LAB BLOOD ORDERABLES Performing Organization Address City/[facility]/ZIP Co de Phone Number LABORATORY [facility] [address] [place] [address] * (ABNORMAL) PT INR (09/26/2023 5:35 AM EDT) [facility] Prothrombin Time 15.3(H) 11.6 - 15.2 seconds 09/26/2023 6:19 AM EDT LABORATORY [facility] INR 1.2 0.8 - 1.2 09/26/2023 6:19 AM EDT LABORATORY [facility] Blood Venous blood specimen / Unknown Venipuncture / Unknown 09/26/2023 5:35 AM EDT 09/26/2023 5:49 AM EDT Narrative [facility]ORY [facility] - 09/26/2023 6:19 AM EDT Warfarin Therapy INR: 2.0-3.0 conventional anticoagulation INR: 2.5-3.5 high intensity anticoagulation Pankaj Gibson LAB BLOOD ORDERABLES LABORATORY [facility] [address] [place] [address] * QUANTIFERON TB GOLD PLUS (09/26/2023 5:35 AM EDT) Quantiferon-TB Plus, 1T NEGATIVE NEGATIVE 09/30/2023 2:52 AM EDT [facility] Comment: Negative test result. M. tuberculosis complex infection unlikely. NIL 0.02 IU/mL 09/30/2023 2:52 AM EDT [facility] Mitogen-NIL 7.40 IU/mL 09/30/2023 2:52 AM EDT [facility] TB1-NIL 0.00 IU/mL 09/30/2023 2:52 AM EDT [facility] TB2-NIL 0.00 IU/mL 09/30/2023 2:52 AM EDT [facility] Comment: The Nil tube value reflects the background interferon gamma immune response of the patient's blood sample. This value has been subtracted from the patient's displayed TB and Mitogen results. Lower than expected results with the Mitogen tube prevent false-negative Quantiferon readings by detect- ing a patient with a potential immune suppressive condition and/or suboptimal pre-analytical specimen handling. The TB1 Antigen tube is coated with the M. tuberculosis-specific antigens designed to elicit responses from TB antigen primed CD4+ helper T-lymphocytes. The TB2 Antigen tube is coated with the M. tuberculosis-specific antigens designed to elicit responses from TB antigen primed CD4+ helper and CD8+ cytotoxic T-lymphocytes. For additional information, please refer to http://education.whoplusyou/faq/EQX208 (This link is being provided for information/ educational purposes only.) Test Performed at: [facility] [address] [place], [place] Christy Roman M.D., Ph.D.,Director of Laboratories Blood Venous blood specimen / Unknown Venipuncture / Unknown 09/26/2023 5:35 AM EDT 09/26/2023 5:51 AM EDT Marifer Flynn PA-C LAB BLOO D ORDERABLES [facility] [id number] [place] [address] * XR CHEST 1 VIEW (09/25/2023 11:10 PM EDT) Anatomical Region Laterality Modality Chest Computed Radiogr aphy 09/26/2023 12:5 0 AM EDT Impressions 09/26/2023 1:24 AM EDT IMPRESSION Likely volume overload/CHF with small bilateral pleural effusions. Possibility of a superimposed infectious process cannot entirely be excluded. I have personally reviewed this examination and agree with the resident/fellow physician's interpretation. Narrative 09/26/2023 1:24 AM EDT EXAM XR CHEST 1 VIEW-09/25/2023 11:10 pm HISTORY preparation for treatment COMPARISON None TECHNIQUE Frontal views of the chest were obtained. FINDINGS LINES/DEVICES:Left chest wall pacemaker/AICD. Diffuse interstitial opacities. Small bilateral pleural effusions with associated atelectasis. There is no pneumothorax. Cardiomegaly. Degenerative osseous changes. Procedure Note Real Siegel MD - 09/26/2023 EXAM XR CHEST 1 VIEW-09/25/2023 11:10 pm HISTORY preparation for treatment COMPARISON None TECHNIQUE Frontal views of the chest were obtained. FINDINGS LINES/DEVICES:Left chest wall pacemaker/AICD. Diffuse interstitial opacities. Small bilateral pleural effusions withassociated atelectasis. There is no pneumothorax. Cardiomegaly.Degenerative osseous changes. IMPRESSION IMPRESSION Likely volume overload/CHF with small bilateral pleural effusions.Possibility of a superimposed infectious process cannot entirely beexcluded. I have personally reviewed this examination and agree with the resident/fellow physician's interpretation. Marifer Flynn PA-C RADIOLOG Y (RAD GENERAL) * ACUTE HEPATITIS PANEL (09/25/2023 9:35 PM EDT) Hepatitis A Antibody IgM Negative Negative 09/26/2023 1:45 AM EDT LABORATORY [facility] Hepatitis B Core Antibody IgM Negative Negative 09/26/2023 1:45 AM EDT LABORATORY [facility] Hepatitis B Surface Antigen Negative Negative 09/26/2023 1:45 AM EDT LABORATORY [facility] Hepatitis C Antibody Negative Negative 09/26/2023 1:45 AM EDT LABORATORY [facility] Blood Venous blood specimen / Unknown Venipuncture / Unknown 09/25/2023 9:35 PM EDT 09/25/2023 11:20 PM EDT Marifer Flynn PA-C LAB BLOO D ORDERABLES Performing Organization Address City/[facility]/ZIP Co de Phone Number LABORATORY [facility] [address] [place] [address] * PSA (09/25/2023 9:35 PM EDT) PSA 1.62 <4.10 ng/mL 09/26/2023 1:40 AM EDT LABORATORY [facility] Blood Venous blood specimen / Unknown Venipuncture / Unknown 09/25/2023 9:35 PM EDT 09/25/2023 11:21 PM EDT Marifer Flynn PA-C LAB BLOO D ORDERABLES Performing Organization Address [facility] Co de Phone Number LABORATORY [facility] [address] [place] [address] * (ABNORMAL) APTT (09/25/2023 9:35 PM EDT) aPTT 60(H) 21 - 38 seconds 09/25/2023 11:49 PM EDT LABORATORY [facility] Blood Venous blood specimen / Unknown Venipuncture / Unknown 09/25/2023 9:35 PM EDT 09/25/2023 11:20 PM EDT Narrative LABORATORY [facility] - 09/25/2023 11:49 PM EDT Anticoagulation may affect testing. Refer to [employer] Test Catalog for a list of effects. Bo Allen MD LAB BLOOD ORDERABLES LABORATORY [facility] [address] [place] [address] * SERUM IMMUNOFIXATION (09/25/2023 6:06 PM EDT) Immunofixation Interpretation A monoclonal IgG kappa gammopathy is present. 09/26/2023 3:24 PM EDT [facility] Blood Venous blood specimen / Unknown Venipuncture / Unknown 09/25/2023 6:06 PM EDT 09/25/2023 6:12 PM EDT Pankaj Gibson LAB BLOOD ORDERABLES Performing Organization Address [facility]/ZIP Co de Phone Number LABORATORY [facility] [address] [place] [address] * PT INR (09/25/2023 6:06 PM EDT) Prothrombin Time 14.4 11.6 - 15.2 seconds 09/25/2023 6:43 PM EDT LABORATORY [facility] INR 1.1 0.8 - 1.2 09/25/2023 6:43 PM EDT LABORATORY [facility] Blood Venous blood specimen / Unknown Venipuncture / Unknown 09/25/2023 6:06 PM EDT 09/25/2023 6:12 PM EDT Narrative LABORATORY C - 09/25/2023 6:43 PM EDT Warfarin Therapy INR: 2.0-3.0 conventional anticoagulation INR: 2.5-3.5 high intensity anticoagulation Pankaj Gibson LAB BLOOD ORDERABLES Performing Organization Address [facility]/ZIP Co de Phone Number LABORATORY [address] [address] * (ABNORMAL) SERUM FREE LIGHT CHAINS (09/25/2023 6:06 PM EDT) [place] Free Light Chains, Serum 80.05(H) 3.30 - 19.40 mg/L 09/26/2023 9:49 AM EDT LABORATORY [facility] Lambda Free Light Chains, Serum 31.99(H) 5.71 - 26.30 mg/L 09/26/2023 9:49 AM EDT LABORATORY [facility] [place] Lambda Free Light Chains Ratio 2.50(H) 0.26 - 1.65 09/26/2023 9:49 AM EDT LABORATORY [facility] Blood Venous blood specimen / Unknown Venipuncture / Unknown 09/25/2023 6:06 PM EDT 09/25/2023 6:12 PM EDT Pankaj Robisonger LAB BLOOD ORDERABLES Performing Organization Address City/[facility]/ZIP Co de Phone Number LAB[facility]ATORY [facility] [address] [place] [address] * (ABNORMAL) SERUM PROTEIN ELECTROPHORESIS REFLEX PROFILE (09/25/2023 6:06 PM EDT) Protein 5.3(L) 6.0 - 8.3 g/dL 09/26/2023 3:24 PM EDT [facility] Albumin 2.97(L) 3.30 - 4.40 g/dL 09/26/2023 3:24 PM EDT [facility] Alpha-1 Globulin 0.20 0.10 - 0.30 g/dL 09/26/2023 3:24 PM EDT [facility] Alpha-2 Globulin 0.85 0.60 - 1.00 g/dL 09/26/2023 3:24 PM EDT [facility] Beta-Globulin 0.64(L) 0.80 - 1.30 g/dL 09/26/2023 3:24 PM EDT [facility] Gamma-Globulin 0.63(L) 0.70 - 1.70 g/dL 09/26/2023 3:24 PM EDT [facility] Electrophoresis Interpretation A paraprotein is present. Decreased gamma fraction. Paraprotein concentration is detectable, but less than 0.5 g/dL, unable to be accurately quantified by this method. Appropriate studies including quantitative immunoglobulins, serum free light chains, and serum immunofixation have been ordered in follow up. See serum immunofixation results. Urine immunofixation recommended in follow up if clinically indicated. 09/26/2023 3:24 PM EDT [facility] Blood Venous blood specimen / Unknown Venipuncture / Unknown 09/25/2023 6:06 PM EDT 09/25/2023 6:12 PM EDT Pankaj Robisonger LAB BLOOD ORDERABLES Performing Organization Address [facility]/ZIP Co de Phone Number LABORATORY [facility] [address] [place] [address] * METHYLMALONIC ACID, SERUM (09/25/2023 6:06 PM EDT) Methylmalonic Acid 287 87 - 318 nmol/L 09/28/2023 5:32 PM EDT [facility] Comment: This test was developed and its analytical performance characteristics have been determined by [facility] [place], [place]. It has not been cleared or approved by the U.S. Food and Drug Administration. This assay has been validated pursuant to the CLIA regulations and is used for clinical purposes. Test Performed at: [facility] [address] Christy Roman M.D., Ph.D.,Director of Laboratories Blood Venous blood specimen / Unknown Venipuncture / Unknown 09/25/2023 6:06 PM EDT 09/25/2023 6:12 PM EDT [facility] LAB BLOOD ORDERABLES [address] [address] * (ABNORMAL) LD (09/25/2023 6:06 PM EDT) LD 337(H) <=250 U/L 09/25/2023 7:07 PM EDT LABORATORY [facility] Blood Venous blood specimen / Unknown Venipuncture / Unknown 09/25/2023 6:06 PM EDT 09/25/2023 6:12 PM EDT [facility] LAB BLOOD ORDERABLES LABORATORY [address] [address] * CT ABD/PELVIS WO IV/ORAL CONTRAST (09/25/2023 5:50 PM EDT) Anatomical Region Laterality Modality Body, Abdomen, Pelvis Computed T omography 09/25/2023 9:33 PM EDT Narrative 09/25/2023 9:31 PM EDT EXAM: CT ABD/PELVIS WO IV/ORAL CONTRAST HISTORY: nephropathy COMPARISON: None. TECHNIQUE: CT abdomen and pelvis without intravenous contrast was performed. FINDINGS: LOWER CHEST: Cardiomegaly. Partially visualized ICD wires. Small pleural effusions. LIVER: Unremarkable. GALLBLADDER/BILE DUCTS: Unremarkable. PANCREAS: Unremarkable. GI TRACT: Sigmoid and descending colon diverticulosis without diverticulitis. SPLEEN: Unremarkable. LYMPH NODES: No lymphadenopathy. ADRENAL GLANDS: Unremarkable. KIDNEYS/URETERS: Right renal cyst. URINARY BLADDER: Asymmetric bladder wall thickening anterosuperiorly (series 5, image 95). REPRODUCTIVE ORGANS: Unremarkable. VASCULATURE: Fusiform infrarenal abdominal aortic aneurysm measuring up to 5.1 cm (series 6, image 119). Aortoiliac calcified plaque. MISCELLANEOUS: No free fluid or free air. MUSCULOSKELETAL: Multilevel degenerative changes of the spine. IMPRESSION: 1. Infrarenal aortic aneurysm measuring up to 5 1 cm. 2. Asymmetric bladder wall thickening. Consider direct visualization. 3. Small pleural effusions. Procedure Note Mendel Rasmussen MD - 09/25/2023 EXAM: CT ABD/PELVIS WO IV/ORAL CONTRAST HISTORY: nephropathy COMPARISON: None. TECHNIQUE: CT abdomen and pelvis without intravenous contrast was performed. FINDINGS: LOWER CHEST: Cardiomegaly. Partially visualized ICD wires. Small pleuraleffusions. LIVER: Unremarkable. GALLBLADDER/BILE DUCTS: Unremarkable. PANCREAS: Unremarkable. GI TRACT: Sigmoid and descending colon diverticulosis withoutdiverticulitis. SPLEEN: Unremarkable. LYMPH NODES: No lymphadenopathy. ADRENAL GLANDS: Unremarkable. KIDNEYS/URETERS: Right renal cyst. URINARY BLADDER: Asymmetric bladder wall thickening anterosuperiorly(series 5, image 95). REPRODUCTIVE ORGANS: Unremarkable. VASCULATURE: Fusiform infrarenal abdominal aortic aneurysm measuring up to5.1 cm (series 6, image 119). Aortoiliac calcified plaque. MISCELLANEOUS: No free fluid or free air. MUSCULOSKELETAL: Multilevel degenerative changes of the spine. IMPRESSION: 1. Infrarenal aortic aneurysm measuring up to 5 1 cm. 2. Asymmetric bladder wall thickening. Consider direct visualization. 3. Small pleural effusions. Dimitry Garcia DO RAD CT * (ABNORMAL) HEPARIN, UNFRACTIONATED (09/25/2023 12:55 PM EDT) Heparin, Unfractionated 0.52(H) <0.10 IU/mL 09/25/2023 1:31 PM EDT LABORATORY [facility] Comment: Unfractionated therapeutic ranges for Anti Xa activity: For Cardiac/Neurologic treatment: 0.3 to 0.6 IU/mL. For treatment of DVT or Pulmonary Embolism: 0.3 to 0.7 IU/mL. Blood Venous blood specimen / Unknown Venipuncture / Unknown 09/25/2023 12:55 PM EDT 09/25/2023 1:[address] [facility] LAB BLOOD ORDERABLES LABORATORY [address] [address] * APTT (09/25/2023 12:55 PM EDT) Pathologist [facility] aPTT 36 21 - 38 seconds 09/25/2023 1:31 PM EDT LABORATORY [facility] Blood Venous blood specimen / Unknown Venipuncture / Unknown 09/25/2023 12:55 PM EDT 09/25/2023 1:02 PM EDT Narrative LABORATORY [facility] - 09/25/2023 1:31 PM EDT Anticoagulation may affect testing. Refer to [employer] Test Catalog for a list of effects. [facility] LAB BLOOD ORDERABLES Performing Organization Address City/[facility]/ZIP Co de Phone Number LABORATORY [address] [address] * PT INR (09/25/2023 12:55 PM EDT) Prothrombin Time 14.8 11.6 - 15.2 seconds 09/25/2023 1:30 PM EDT LABORATORY [facility] INR 1.1 0.8 - 1.2 09/25/2023 1:30 PM EDT LABORATORY [facility] Blood Venous blood specimen / Unknown Venipuncture / Unknown 09/25/2023 12:55 PM EDT 09/25/2023 1:02 PM EDT Narrative LABORATORY C - 09/25/2023 1:30 PM EDT Warfarin Therapy INR: 2.0-3.0 conventional anticoagulation INR: 2.5-3.5 high intensity anticoagulation Pankaj Chungueger LAB BLOOD ORDERABLES LABORATORY [facility] [address] [place] [address] * (ABNORMAL) IMMUNOGLOBULIN QUANTITATIVE (09/25/2023 11:45 AM EDT) IgG 515(L) 700 - 1,600 mg/dL 09/25/2023 4:00 PM EDT LABORATORY [facility] IgA 141 70 - 400 mg/dL 09/25/2023 4:00 PM EDT LABORATORY [facility] IgM 36(L) 40 - 230 mg/dL 09/25/2023 4:00 PM EDT LABORATORY C Blood Venous blood specimen / Unknown Venipuncture / Unknown 09/25/2023 11:45 AM EDT 09/25/2023 11:49 AM EDT Pankaj Gibson LAB BLOOD ORDERABLES Performing Organization Address [facility]/ZIP Co de Phone Number LABORATORY [facility] [address] [place] [address] * HAPTOGLOBIN (09/25/2023 11:45 AM EDT) Haptoglobin 79 30 - 200 mg/dL 09/25/2023 4:00 PM EDT LABORATORY [facility] Blood Venous blood specimen / Unknown Venipuncture / Unknown 09/25/2023 11:45 AM EDT 09/25/2023 11:49 AM EDT Pankaj Gibson LAB BLOOD ORDERABLES Performing Organization Address City/[facility]/ZIP Co de Phone Number LABORATORY [facility] [address] [place] [address] * PHOSPHORUS (09/25/2023 11:45 AM EDT) Phosphorus 2.7 2.5 - 4.8 mg/dL 09/25/2023 12:18 PM EDT LAB[facility]ORY [facility] Blood Venous blood specimen / Unknown Venipuncture / Unknown 09/25/2023 11:45 AM EDT 09/25/2023 11:49 AM EDT [facility] LAB BLOOD ORDERABLES Performing Organization Address [facility] Co de Phone Number LABORATORY [facility] [address] [place] [address] * MAGNESIUM (09/25/2023 11:45 AM EDT) Magnesium 2.6 1.5 - 2.6 mg/dL 09/25/2023 12:18 PM EDT [facility] Blood Venous blood specimen / Unknown Venipuncture / Unknown 09/25/2023 11:45 AM EDT 09/25/2023 11:49 AM EDT [facility] LAB BLOOD ORDERABLES Performing Organization Address [facility] de Phone Number LABORATORY [facility] [address] [place] [address] * (ABNORMAL) CBC (09/25/2023 11:45 AM EDT) WBC 5.98 4.00 - 10.80 K/uL 09/25/2023 12:29 PM EDT [facility] RBC 2.53 4.50 - 5.25 M/uL 09/25/2023 12:29 PM EDT [facility] HGB 9.0(L) 14.0 - 16.8 g/dL 09/25/2023 12:29 PM EDT [facility] HCT 28.5(L) 40.0 - 48.4 % 09/25/2023 12:29 PM EDT [facility] MCV 112.6 82.0 - 99.5 fL 09/25/2023 12:29 PM EDT [facility] MCH 35.6 27.0 - 34.0 pg 09/25/2023 12:29 PM EDT [facility] MCHC 31.6 32.0 - 36.0 g/dL 09/25/2023 12:29 PM EDT [facility] RDW 12.9 11.5 - 15.5 % 09/25/2023 12:29 PM EDT [facility] PLT 95(L) 140 - 400 K/uL 09/25/2023 12:29 PM EDT [facility] MPV 10.9 6.6 - 11.1 fL 09/25/2023 12:29 PM EDT [facility] nRBCs 0 <=0 /100 WBCs 09/25/2023 12:29 PM EDT [facility] Blood Venous blood specimen / Unknown Venipuncture / Unknown 09/25/2023 11:45 AM EDT 09/25/2023 11:49 AM EDT Dimitry Garcia DO LAB BLOOD ORDERABLES [facility] [address] [place] [address] * (ABNORMAL) COMPREHENSIVE METABOLIC PANEL (09/25/2023 11:45 AM EDT) BUN 28(H) 6 - 20 mg/dL 09/25/2023 12:18 PM EDT [facility] Creatinine 1.4(H) 0.6 - 1.2 mg/dL 09/25/2023 12:18 PM EDT [facility] Estimated Glomerular Filtration Rate 50(L) >=60 mL/min 09/25/2023 12:18 PM EDT [facility] Comment:eGFR is calculated b ased on the CKD-EPI 2020 equation Sodium 142 135 - 146 mmol/L 09/25/2023 12:18 PM EDT [facility] Potassium 3.8 3.5 - 5.1 mmol/L 09/25/2023 12:18 PM EDT [facility] Chloride 109(H) 98 - 107 mmol/L 09/25/2023 12:18 PM EDT [facility] CO2 24 22 - 32 mmol/L 09/25/2023 12:18 PM EDT [facility] Anion Gap 9 7 - 15 mmol/L 09/25/2023 12:18 PM EDT [facility] Glucose 95 70 - 120 mg/dL 09/25/2023 12:18 PM EDT [facility] Albumin 3.4(L) 3.8 - 5.0 g/dL 09/25/2023 12:18 PM EDT [facility] AST 28 10 - 50 U/L 09/25/2023 12:18 PM EDT [facility] Alkaline Phosphatase 79 35 - 130 U/L 09/25/2023 12:18 PM EDT [facility] Bilirubin, Total 0.6 <=1.2 mg/dL 09/25/2023 12:18 PM EDT [facility] Calcium 8.7 8.4 - 10.2 mg/dL 09/25/2023 12:18 PM EDT [facility] Protein 5.1(L) 6.0 - 8.3 g/dL 09/25/2023 12:18 PM EDT [facility] ALT 19 10 - 50 U/L 09/25/2023 12:18 PM EDT [facility] Blood Venous blood specimen / Unknown Venipuncture / Unknown 09/25/2023 11:45 AM EDT 09/25/2023 11:49 AM EDT Dimitry Garcia DO LAB BLOOD ORDERABLES LABORATORY [facility] [address] [place] [address] documented in this encounter Visit Diagnoses Diagnosis Nephrotic range proteinuria- Primary Proteinuria Nephrotic syndrome Nephrotic syndrome with unspecified pathological lesion in kidney Chest pain Chest pain, unspecified Nephrotic range proteinuria Proteinuria Paroxysmal atrial fibrillation (HCC) Atrial fibrillation Monoclonal gammopathy Monoclonal paraproteinemia Acute deep vein thrombosis (DVT) of both peroneal veins (HCC) Nephrotic syndrome Nephrotic syndrome with unspecified pathological lesion in kidney Stage 3b chronic kidney disease (HCC) documented in this encounter Administered Medications Inactive Administered Medications - up to 3 most recent administrations Medication Order MAR Action Action Date Dose Rate Site Acetaminophen (Tylenol) tab 650 mg 650 mg, Oral, ONCE, On Fri10/02/23 at 1030, For 1 dose, 30 minutes prior to Rituxan administration Given 10/02/2023 12:01 PM EDT 650 mg Apixaban (Eliquis) tab 10 mg 10 mg, Oral, BID (.AM/PM), First dose on Fri10/02/23 at 2100, Last dose on Fri10/03/23 at 2100, For 3 doses Apixaban (Eliquis) tab 2.5 mg 2.5 mg, Oral, BID (.AM/PM), First dose on Fri10/01/23 at 2100, Until Discontinued Given 10/02/2023 8:21 AM EDT 2.5 mg Given 10/01/2023 8:13 PM EDT 2.5 mg Apixaban (Eliquis) tab 5 mg 5 mg, Oral, BID (.AM/PM), First dose on 10/04/23 at 0900, Until Discontinued Apixaban (Eliquis) tab 7.5 mg 7.5 mg, Oral, ONCE, On Maria De Jesus 10/02/23 at 0930, For 1 dose, To complete 10 mg this morning Given 10/02/2023 9:13 AM EDT 7.5 mg buffered lidocaine 1 % inj 10 mL 10 mL, Intradermal, ONCE, On Fri09/30/23 at 1345, For 1 dose, Buffered with sodium bicarbonate Given By 09/30/2023 1:45 PM EDT 10 mL buffered lidocaine 1 % inj 10 mL 10 mL, Intradermal, ONCE, On Fri09/30/23 at 1345, For 1 dose, Buffered with sodium bicarbonate Given By 09/30/2023 1:45 PM EDT 10 mL buffered lidocaine 1 % inj 10 mL 10 mL, Intradermal, ONCE, On Fri09/30/23 at 1345, For 1 dose, Buffered with sodium bicarbonate Given By 09/30/2023 1:45 PM EDT 10 mL buffered lidocaine 1 % inj Intradermal, ONCE PRN INTRA PROCEDURE, Starting on Fri09/29/23 at 1542, Until Fri09/29/23 at 1542, Intra-Op Given 09/29/2023 3:42 PM EDT 20 mL clopidogrel (pLAVix) tab 75 mg 75 mg, Oral, Daily(AM), First dose on Maria De Jesus 10/02/23 at 0900, Until Discontinued Given 10/02/2023 8:20 AM EDT 75 mg diphenhydrAMINE (Benadryl) cap 50 mg 50 mg, Oral, ONCE, On Maria De Jesus 10/02/23 at 1030, For 1 dose, 30 minutes prior to Rituxan administration Given 10/02/2023 12:01 PM EDT 50 mg diphenhydrAMINE (Benadryl) inj 50 mg 50 mg, IV Push, ONCE PRN Other, Anaphylaxis, Starting on Maria De Jesus 10/02/23 at 0946, Until Maria De Jesus 10/02/23 at 2335, For 1 dose EPINEPHrine 1 mg/mL IM inj 0.3 mg 0.3 mg, Intramuscular, ONCE PRN Other, Anaphylaxis, Starting on Maria De Jesus 10/02/23 at 0946, Until Maria De Jesus 10/02/23 at 2335, For 1 dose Famotidine (Pepcid) tab 20 mg 20 mg, Oral, ONCE, On Maria De Jesus 10/02/23 at 1030, For 1 dose, 30 minutes prior to Rituxan administration Given 10/02/2023 12:01 PM EDT 20 mg fentaNYL (PF) inj ONCE PRN INTRA PROCEDURE, Starting on Fri09/29/23 at 1542, Until Fri09/29/23 at 1558, Intra-Op Given 09/29/2023 3:58 PM EDT 50 mcg Given 09/29/2023 3:42 PM EDT 50 mcg Ferrous Sulfate (Feosol) tab 325 mg 325 mg, Oral, WITH MEALS, First dose on Maria De Jesus 09/25/23 at 1315, Until Discontinued, This med should NOT be Crushed or Chewed Given 10/02/2023 4:11 PM EDT 325 mg Given 10/02/2023 11:07 AM EDT 325 mg Given 10/02/2023 8:20 AM EDT 325 mg FLUoxetine (PROzac) cap 10 mg 10 mg, Oral, Daily(AM), First dose on Fri09/26/23 at 0900, Until Discontinued Given 10/02/2023 8:21 AM EDT 10 mg Given 10/01/2023 9:21 AM EDT 10 mg Given 09/30/2023 8:38 AM EDT 10 mg hEParin 1000 UNIT/ML inj 1,600 Units 1,600 Units (rounded from 1,560 Units = 15 Units/kg 104 kg), IV Push, PRN Other, If most recent aPTT result is between 56 and 65 seconds., Starting on Maria De Jesus 09/25/23 at 1241, Until Fri09/29/23 at 0042, Repeat aPTT 6 hours after bolus is administered. Send message to pharmacy if dose needed. Given 09/28/2023 7:45 PM EDT 1,600 Units Given 09/27/2023 6:55 AM EDT 1,600 Units Given 09/26/2023 1:55 AM EDT 1,600 Units hEParin 25,000 units in 250 mL (aPTT-Cardiac) infusion Intravenous, at 0-31.2 mL/hr, Start heparin as soon as baseline labs are drawn. Please select this medication from the infusion pump library! Concentration: 100 units/mL Expires 96 hours after spiking on (date) at (hour) , TITRATE, Starting on Maria De Jesus 09/25/23 at 1315, Until 09/29/23 at 0042 Rate Change 09/28/2023 7:47 PM EDT 11 Units/kg/hr 11.44 mL/hr Nurse Change 09/28/2023 7:15 PM EDT 9 Units/kg/hr 9.36 mL/ hr Rate Change 09/28/2023 12:15 PM EDT 9 Units/kg/hr 9.36 mL/ hr Hydrocortisone Sod Succ (Solu-Cortef) (50 mg/mL) inj dilution 100 mg 100 mg, IV Push, ONCE PRN Other, Anaphylaxis, Starting on Fri10/02/23 at 0946, Until Fri10/02/23 at 2335, For 1 dose methylPREDNISolone sodium succ (SOLU-Medrol) inj 100 mg 100 mg, IV Push, ONCE, On Maria De Jesus 10/02/23 at 1030, For 1 dose, Give 30 min prior to rituximab Given 10/02/2023 12:00 PM EDT 100 mg metoprolol succinate XL (toPROL XL) tab 25 mg 25 mg, Oral, BID (.AM/PM), First dose on Maria De Jesus 09/25/23 at 2100, Until Discontinued, Hold for HR less than 60 or SBP below 100 and notify service if dose is held This med should NOT be Crushed or Chewed. Given 10/02/2023 8:21 AM EDT 25 mg Given 10/01/2023 8:13 PM EDT 25 mg Given 10/01/2023 9:21 AM EDT 25 mg midazolam (Versed) 2 MG/2ML inj ONCE PRN INTRA PROCEDURE, Starting on Fri09/29/23 at 1542, Until Fri09/29/23 at 1542, Intra-Op Given 09/29/2023 3:42 PM EDT 1 mg Polyethylene Glycol 3350 (Miralax) oral powder 17 g 17 g (1 Packet), Oral, DAILY PRN Constipation, Starting on Fri09/25/23 at 1240, Until Fri10/02/23 at 2335, Mix in 8 oz of water, juice, soda, coffee, or tea. potassium and sodium phosphate (Phos-Nak) oral powder 2 Packet 2 Packet, Oral, ONCE, On Fri09/29/23 at 1100, For 1 dose, Mix 1 packet in 2.5 ounces (75 mL) of water, stir well and administer promptly. 1 packet contains Phosphorus 250 mg (~8 mMoles) + potassium 280 mg (~7.125 mEq) + sodium 160mg (~7.125 mEq) Given 09/29/2023 11:45 AM EDT 2 Packets riTUXimab-pvvr (Ruxience) 1,000 mg in NSS 500 mL ivpb 1,000 mg, IV Piggyback, ONCE, 1 dose, On Fri10/02/23 at 1100, Initial Infusions: Start at an infusion rate of 50 mg/hour. If no reaction, rate may be increased by 50 mg/hour increments every 30-minutes to a maximum of 400 mg/hour. Rate Change 10/02/2023 4:47 PM EDT 200 mL/hr Rate Change 10/02/2023 4:10 PM EDT 175 mL/hr Rate Change 10/02/2023 3:40 PM EDT 150 mL/hr rosuvastatin (Crestor) tab 10 mg 10 mg, Oral, Daily(AM), First dose on Fri09/26/23 at 0900, Until Discontinued Given 10/02/2023 8:21 AM EDT 10 mg Given 10/01/2023 9:21 AM EDT 10 mg Given 09/30/2023 8:38 AM EDT 10 mg sodium chloride 0.9 % flush/inj 3 mL 3 mL, IV Push, PRN Other, Line Patency, Starting on Fri09/25/23 at 1047, Until Fri10/02/23 at 2335, Do not flush if lock, PICC, or central line not in place, IV infusing or unable to flush documented in this encounter Active and Recently Administered Medications Times are shown in EDT. Scheduled Medication Order 09/30/2023 10/01/2023 10/02/2023 Acetaminophen (Tylenol) tab 650 mg (COMPLETED) 650 mg, Oral, ONCE, On Fri10/02/23 at 1030, For 1 dose, 30 minutes prior to Rituxan administration 1201 (Given - Provider: Susi Cary RN) Apixaban (Eliquis) tab 10 mg(Linked Group 1) 10 mg, Oral, BID (.AM/PM), First dose on Fri10/02/23 at 2100, Last dose on Fri10/03/23 at 2100, For 3 doses Apixaban (Eliquis) tab 2.5 mg (CANCELED) 2.5 mg, Oral, BID (.AM/PM), First dose on Fri10/01/23 at 2100, Until Discontinued 2012 (Given - Provider: Mily Calderon RN) 0821 (Given - Provider: Susi Cary RN) Apixaban (Eliquis) tab 5 mg(Linked Group 1) 5 mg, Oral, BID (.AM/PM), First dose on Fri10/04/23 at 0900, Until Discontinued Apixaban (Eliquis) tab 7.5 mg (COMPLETED) 7.5 mg, Oral, ONCE, On Fri10/02/23 at 0930, For 1 dose, To complete 10 mg this morning 0913 (Given - Provider: Susi Cary RN) buffered lidocaine 1 % inj 10 mL (COMPLETED) 10 mL, Intradermal, ONCE, On Fri09/30/23 at 1345, For 1 dose, Buffered with sodium bicarbonate 1345 (Given By - Provider: Letty Koo RN - Comment: Given by Sid Peterson for bone marrow biopsy) buffered lidocaine 1 % inj 10 mL (COMPLETED) 10 mL, Intradermal, ONCE, On Fri09/30/23 at 1345, For 1 dose, Buffered with sodium bicarbonate 1345 (Given By - Provider: Letty Koo RN - Comment: Given by Sid Peterson for bone marrow biopsy) buffered lidocaine 1 % inj 10 mL (COMPLETED) 10 mL, Intradermal, ONCE, On Fri09/30/23 at 1345, For 1 dose, Buffered with sodium bicarbonate 1345 (Given By - Provider: Letty Koo RN - Comment: Given by Sid Peterson for bone marrow biopsy) clopidogrel (pLAVix) tab 75 mg 75 mg, Oral, Daily(AM), First dose on Fri10/02/23 at 0900, Until Discontinued 0820 (Given - Provider: Susi Cary RN) diphenhydrAMINE (Benadryl) cap 50 mg (COMPLETED) 50 mg, Oral, ONCE, On Fri10/02/23 at 1030, For 1 dose, 30 minutes prior to Rituxan administration 1201 (Given - Provider: Susi Cary RN) Famotidine (Pepcid) tab 20 mg (COMPLETED) 20 mg, Oral, ONCE, On Fri10/02/23 at 1030, For 1 dose, 30 minutes prior to Rituxan administration 1201 (Given - Provider: Susi Cary RN) Ferrous Sulfate (Feosol) tab 325 mg 325 mg, Oral, WITH MEALS, First dose on Fri09/25/23 at 1315, Until Discontinued, This med should NOT be Crushed or Chewed 0838 (Given - Provider: Marie Alexis RN)1207 (Given - Provider: Letty Koo RN)1742 (Given - Provider: Letty Koo RN) 0921 (Given - Provider: Stacia Hall RN)1244 (Given - Provider: Stacia Hall RN)1821 (Given - Provider: Stacia Hall RN) 0820 (Given - Provider: Susi Cary RN)1107 (Given - Provider: Susi Cary RN)1611 (Given - Provider: Susi Cary RN) FLUoxetine (PROzac) cap 10 mg 10 mg, Oral, Daily(AM), First dose on Fri09/26/23 at 0900, Until Discontinued 0838 (Given - Provider: Marie Alexis RN) 0921 (Given - Provider: Stacia Hall RN) 0821 (Given - Provider: Susi Cary RN) methylPREDNISolone sodium succ (SOLU-Medrol) inj 100 mg (COMPLETED) 100 mg, IV Push, ONCE, On Fri10/02/23 at 1030, For 1 dose, Give 30 min prior to rituximab 1200 (Given - Provider: Susi Cary RN) metoprolol succinate XL (toPROL XL) tab 25 mg 25 mg, Oral, BID (.AM/PM), First dose on Fri09/25/23 at 2100, Until Discontinued, Hold for HR less than 60 or SBP below 100 and notify service if dose is held This med should NOT be Crushed or Chewed. 0838 (Given - Provider: Marie Alexis, JEFFY)2154 (Given - Provider: John Beltrán RN) 09 (Given - Provider: Stacia Hall RN)2012 (Given - Provider: Mily Calderon RN) 08 (Given - Provider: Susi Cary RN) riTUXimab-pvvr (Ruxience) 1,000 mg in NSS 500 mL ivpb (COMPLETED) 1,000 mg, IV Piggyback, ONCE, 1 dose, On Fri10/02/23 at 1100, Initial Infusions: Start at an infusion rate of 50 mg/hour. If no reaction, rate may be increased by 50 mg/hour increments every 30-minutes to a maximum of 400 mg/hour. 1259 (New Bag - Provider: Susi Cary RN)1336 (Rate Change - Provider: Suis Cary RN)1407 (Rate Change - Provider: Susi Cary RN)1437 (Rate Change - Provider: Susi Cary, JEFFY)1510 (Rate Change - Provider: Susi Cary, JEFFY)1540 (Rate Change - Provider: Susi Cary, JEFFY)1610 (Rate Change - Provider: Susi Cary, JEFFY)1647 (Rate Change - Provider: Susi Cary, JEFFY) rosuvastatin (Crestor) tab 10 mg 10 mg, Oral, Daily(AM), First dose on Fri09/26/23 at 0900, Until Discontinued 0838 (Given - Provider: Marie Alexis RN) 0921 (Given - Provider: Stacia Hall RN) 0821 (Given - Provider: Susi Cary, JEFFY) PRN Medication Order 09/30/2023 10/01/2023 10/02/2023 Acetaminophen (Tylenol) tab 650 mg 650 mg, Oral, Q6H PRN Pain, Mild, Headache, Fever >38C(100.5F), Starting on Maria De Jesus 09/25/23 at 1238, Until Maria De Jesus 10/02/23 at 2335 diphenhydrAMINE (Benadryl) inj 50 mg 50 mg, IV Push, ONCE PRN Other, Anaphylaxis, Starting on Fri10/02/23 at 0946, Until Maria De Jesus 10/02/23 at 2335, For 1 dose Docusate Sodium (Colace) cap 100 mg 100 mg, Oral, DAILY PRN Constipation, Starting on Maria De Jesus 09/25/23 at 1239, Until Maria De Jesus 10/02/23 at 2335, For oral administration ONLY, if route of administration is other than oral and alternative product must be ordered. EPINEPHrine 1 mg/mL IM inj 0.3 mg 0.3 mg, Intramuscular, ONCE PRN Other, Anaphylaxis, Starting on Maria De Jesus 10/02/23 at 0946, Until Maria De Jesus 10/02/23 at 2335, For 1 dose Hydrocortisone Sod Succ (Solu-Cortef) (50 mg/mL) inj dilution 100 mg 100 mg, IV Push, ONCE PRN Other, Anaphylaxis, Starting on Maria De Jesus 10/02/23 at 0946, Until Maria De Jesus 10/02/23 at 2335, For 1 dose melatonin tab 3 mg 3 mg, Oral, HS PRN Other, insomnia, Starting on Fri09/25/23 at 1238, Until Maria De Jesus 10/02/23 at 2335 Polyethylene Glycol 3350 (Miralax) oral powder 17 g 17 g (1 Packet), Oral, DAILY PRN Constipation, Starting on Fri09/25/23 at 1240, Until Maria De Jesus 10/02/23 at 2335, Mix in 8 oz of water, juice, soda, coffee, or tea. sodium chloride 0.9 % flush/inj 3 mL 3 mL, IV Push, PRN Other, Line Patency, Starting on Fri09/25/23 at 1047, Until Maria De Jesus 10/02/23 at 2335, Do not flush if lock, PICC, or central line not in place, IV infusing or unable to flush Linked Groups Order Group 1: Apixaban (Eliquis) tab 10 mgJump to med 10 mg, Oral, BID (.AM/PM), First dose on Maria De Jesus 10/02/23 at 2100, Last dose on Fri10/03/23 at 2100, For 3 doses Followed by Apixaban (Eliquis) tab 5 mgJump to med 5 mg, Oral, BID (.AM/PM), First dose on 10/04/23 at 0900, Until Discontinued documented in this encounter Advance Directives Documents on File Type Date 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
--- OUTSIDE RECORDS SUMMARY | 2023-10-11 02:54 | External Medical Summary ---
Author Name Unknown Address Unknown Organization [id number]:[facility] [place] [facility] [address] [facility] [address] Laboratory Report Ordering Provider Test Date Status VAN JENKINS 10/01/2023 06:03:00 Final Observation Date Value Abnormality Reference (Units ) Status WBC, Total 10/01/2023 06:03:00 6.23 4.00-10.80 (K/uL) Final RBC 10/01/2023 06:03:00 2.61 4.50-5.25 (M/uL) Final Hemoglobin 10/01/2023 06:03:00 9.3 Below low normal 14.0-16.8 (g/dL) Final HCT 10/01/2023 06:03:00 28.6 Below low normal 40.0-48.4 (%) Final MCV 10/01/2023 06:03:00 109.6 82.0-99.5 (fL) Final MCH 10/01/2023 06:03:00 35.6 27.0-34.0 (pg) Final MCHC 10/01/2023 06:03:00 32.5 32.0-36.0 (g/dL) Final RDW 10/01/2023 06:03:00 12.7 11.5-15.5 (%) Final Platelets 10/01/2023 06:03:00 94 Below low normal 140-400 (K/uL) Final MPV 10/01/2023 06:03:00 10.5 6.6-11.1 (fL) Final Nucleated erythrocytes/100 leukocytes [Ratio] in Blood by Automated count 10/01/2023 06:03:00 0 <=0 (/100 WBCs) Final Performing Location [facility] [facility] [place] [address] [place] [address]
--- OUTSIDE RECORDS SUMMARY | 2023-10-11 02:54 | External Medical Summary ---
Author Name Unknown Address Unknown Organization [id number]:LABORATORY [facility] [place] - [facility] [address] [facility] [address] [facility] [address] Laboratory Report Ordering Provider Test Date Status VAN JENKINS 10/01/2023 21:46:20 Final Observation Date Value Abnormality Reference (Units ) Status Protein, 24-hr Urine 10/01/2023 21:46:20 2197 (mg/dL) Final Run on dilution. Protein Fractions [Interpretation] in 24 hour Urine by Electrophoresis Narrative 10/01/2023 21:46:20 Paraprotein present. See urine immunofixation results. Final Albumin, Urine 10/01/2023 21:46:20 1474.0 (mg/d L) Final Globulin [Mass/volume] in Urine by Electrophoresis 10/01/2023 21:46:20 723.0 (mg/dL) Final Protein.monoclonal [Mass/volume] in Urine 10/01/2023 21:46:20 49.5 (mg/dL) Final Performing Location LABORATORY [facility] [place] - [facility] [address] [facility] [address]
--- OUTSIDE RECORDS SUMMARY | 2023-10-11 02:54 | External Medical Summary ---
Author Name Unknown Address Unknown Organization K01:LABORATORY [facility] [place] - [facility] [address] [facility] [address] Laboratory Report Ordering Provider Test Date Status VAN JENKINS 10/02/2023 03:16:00 Final Observation Date Value Abnormality Reference (Units ) Status WBC, Total 10/02/2023 03:16:00 5.99 4.00-10.80 (K/uL) Final RBC 10/02/2023 03:16:00 2.34 4.50-5.25 (M/uL) Final Hemoglobin 10/02/2023 03:16:00 8.5 Below low normal 14.0-16.8 (g/dL) Final HCT 10/02/2023 03:16:00 26.0 Below low normal 40.0-48.4 (%) Final MCV 10/02/2023 03:16:00 111.1 82.0-99.5 (fL) Final MCH 10/02/2023 03:16:00 36.3 27.0-34.0 (pg) Final MCHC 10/02/2023 03:16:00 32.7 32.0-36.0 (g/dL) Final RDW 10/02/2023 03:16:00 12.7 11.5-15.5 (%) Final Platelets 10/02/2023 03:16:00 79 Below low normal 140-400 (K/uL) Final MPV 10/02/2023 03:16:00 10.4 6.6-11.1 (fL) Final Nucleated erythrocytes/100 leukocytes [Ratio] in Blood by Automated count 10/02/2023 03:16:00 0 <=0 (/100 WBCs) Final Performing Location LABORATORY [facility] [place] - [address] [place] [address]
--- OUTSIDE RECORDS SUMMARY | 2023-10-11 02:54 | External Medical Summary ---
Author Name Unknown Address Unknown Organization K01:[place] [place] [address] [place] [address] Laboratory Report Ordering Provider Test Date Status VAN JENKINS 10/01/2023 06:03:00 Final Warfarin Therapy
INR: 2 .0-3.0 conventional anticoagulation
INR: 2.5- 3.5 high intensity anticoagulation Observation Date Value Abnormality Reference (Units ) Status PT 10/01/2023 06:03:00 14.9 11.6-15.2 (seconds) Final INR 10/01/2023 06:03:00 1.2 0.8-1.2 Final Performing Location LAB[facility] [place] [address] [place] [address]
--- OUTSIDE RECORDS SUMMARY | 2023-10-11 02:54 | External Medical Summary ---
Author Name Unknown Address Unknown Organization K01:LABORATORY [facility] [place] - [address] [facility] [address] Laboratory Report Ordering Provider Test Date Status VAN JENKINS 10/01/2023 21:46:20 Final Observation Date Value Abnormality Reference (Units ) Status Protein, 24-hr Urine 10/01/2023 21:46:20 2197 (mg/dL) Final Run on dilution. Immunofixation for 24 hour Urine Narrative 10/01/2023 21:46:20 Monoclonal intact immunoglobulins present. No monoclonal free light chain detected. A monoclonal IgG kappa gammopathy is present. Final Performing Location LABORATORY [facility] [place] - [address] [place] [address]
--- OUTSIDE RECORDS SUMMARY | 2023-10-11 02:54 | External Medical Summary ---
Author Name Unknown Address Unknown Organization K01:LABORATORY [facility] [place] - [address] [place] [address] Laboratory Report Ordering Provider Test Date Status VAN JENKINS 10/02/2023 03:16:00 Final Observation Date Value Abnormality Reference (Units ) Status BUN 10/02/2023 03:16:00 46 Above high normal 6-20 (mg/dL) Final Creatinine 10/02/2023 03:16:00 2.1 Above high normal 0.6-1.2 (mg/dL) Final Glomerular filtration rate/1.73 sq M.predicted [Volume Rate/Area] in Serum, Plasma or Blood by Creatinine-based formula (CKD-EPI) 10/02/2023 03:16:00 31 Below low normal >=60 (mL/min) Final eGFR is calculated based on the CKD-EPI 2020 equation SODIUM 10/02/2023 03:16:00 140 135-146 (m mol/L) Final Potassium 10/02/2023 03:16:00 3.9 3.5-5.1 (m mol/L) Final Cl 10/02/2023 03:16:00 111 Above high normal 98 -107 (mmol/L) Final CO2 10/02/2023 03:16:00 20 Below low normal 22- 32 (mmol/L) Final Anion gap 10/02/2023 03:16:00 9 7-15 (mmol /L) Final Glucose 10/02/2023 03:16:00 88 70-120 (mg /dL) Final Calcium 10/02/2023 03:16:00 7.8 Below low normal 8.4 -10.2 (mg/dL) Final Albumin 10/02/2023 03:16:00 2.4 Below low normal 3.8 -5.0 (g/dL) Final Phosphate 10/02/2023 03:16:00 3.1 2.5-4.8 (m g/dL) Final Performing Location LABORATORY [facility] [place] - [address] [place] [address]
--- OUTSIDE RECORDS SUMMARY | 2023-10-11 02:54 | External Medical Summary ---
Author Name Unknown Address Unknown Organization [id number]:[facility] [place] [address] [place] [address] Laboratory Report Ordering Provider Test Date Status VAN JENKINS 10/01/2023 06:03:00 Final Observation Date Value Abnormality Reference (Units ) Status BUN 10/01/2023 06:03:00 42 Above high normal 6-20 (mg/dL) Final Creatinine 10/01/2023 06:03:00 2.1 Above high normal 0.6-1.2 (mg/dL) Final Glomerular filtration rate/1.73 sq M.predicted [Volume Rate/Area] in Serum, Plasma or Blood by Creatinine-based formula (CKD-EPI) 10/01/2023 06:03:00 31 Below low normal >=60 (mL/min) Final eGFR is calculated based on the CKD-EPI 2020 equation SODIUM 10/01/2023 06:03:00 142 135-146 (m mol/L) Final Potassium 10/01/2023 06:03:00 4.2 3.5-5.1 (m mol/L) Final Cl 10/01/2023 06:03:00 111 Above high normal 98 -107 (mmol/L) Final CO2 10/01/2023 06:03:00 21 Below low normal 22- 32 (mmol/L) Final Anion gap 10/01/2023 06:03:00 10 7-15 (mmol /L) Final Glucose 10/01/2023 06:03:00 93 70-120 (mg /dL) Final Calcium 10/01/2023 06:03:00 7.9 Below low normal 8.4 -10.2 (mg/dL) Final Albumin 10/01/2023 06:03:00 2.8 Below low normal 3.8 -5.0 (g/dL) Final Phosphate 10/01/2023 06:03:00 2.8 2.5-4.8 (m g/dL) Final Performing Location [facility] [place] [address] [place] [address]
--- OUTSIDE RECORDS SUMMARY | 2023-10-11 02:54 | External Medical Summary ---
Author Name Unknown Address Unknown Organization K01:LABORATORY [place] - [address] [place] [address] Laboratory Report Ordering Provider Test Date Status VAN JENKINS 10/02/2023 03:16:00 Final Warfarin Therapy
INR: 2 .0-3.0 conventional anticoagulation
INR: 2.5- 3.5 high intensity anticoagulation Observation Date Value Abnormality Reference (Units ) Status PT 10/02/2023 03:16:00 16.2 Above high normal 11 .6-15.2 (seconds) Final INR 10/02/2023 03:16:00 1.3 Above high normal 0. 8-1.2 Final Performing Location LABORATORY [place] - [address] [place] [address]
--- OUTSIDE RECORDS SUMMARY | 2023-10-11 02:55 | External Medical Summary ---
Author Name Unknown Address Unknown Organization K01:[place] [place] [facility] [address] [facility] [address] Laboratory Report Ordering Provider Test Date Status VAN JENKINS 09/30/2023 06:37:00 Final Observation Date Value Abnormality Reference (Units ) Status WBC, Total 09/30/2023 06:37:00 6.65 4.00-10.80 (K/uL) Final RBC 09/30/2023 06:37:00 2.78 4.50-5.25 (M/uL) Final Hemoglobin 09/30/2023 06:37:00 9.8 Below low normal 14.0-16.8 (g/dL) Final HCT 09/30/2023 06:37:00 30.6 Below low normal 40.0-48.4 (%) Final MCV 09/30/2023 06:37:00 110.1 82.0-99.5 (fL) Final MCH 09/30/2023 06:37:00 35.3 27.0-34.0 (pg) Final MCHC 09/30/2023 06:37:00 32.0 32.0-36.0 (g/dL) Final RDW 09/30/2023 06:37:00 12.7 11.5-15.5 (%) Final Platelets 09/30/2023 06:37:00 105 Below low normal 140-400 (K/uL) Final MPV 09/30/2023 06:37:00 10.5 6.6-11.1 (fL) Final Nucleated erythrocytes/100 leukocytes [Ratio] in Blood by Automated count 09/30/2023 06:37:00 0 <=0 (/100 WBCs) Final Performing Location [facility] [place] [address] [place] [address]
--- OUTSIDE RECORDS SUMMARY | 2023-10-11 02:55 | External Medical Summary ---
Author Name Unknown Address Unknown Organization K01:LABORATORY [facility] - [address] [place] [address] Laboratory Report Ordering Provider Test Date Status HUYEN LINK 09/28/2023 17:44:00 Final Anticoagulation may affect t esting. Refer to [employer] Test Catalog for a list of effects. Observation Date Value Abnormality Reference (Units ) Status aPTT panel - Platelet poor plasma 09/28/2023 17:44:00 62 Above high normal 21-38 (seconds) Final Performing Location LABORATORY [facility] - [address] [place] [address]
--- OUTSIDE RECORDS SUMMARY | 2023-10-11 02:55 | External Medical Summary ---
Author Name Unknown Address Unknown Organization K01:[place] [facility] [place] [address] [place] [address] Laboratory Report Ordering Provider Test Date Status CRISTAL OLSEN 09/30/2023 16:30:00 Final Observation Date Value Abnormality Reference (Units ) Status BONE MARROW FOR FLOW CYTOMETRY 09/30/2023 16:30:00 Yes Final Performing Location [facility]ATORY [facility] - [address] [place] [address]
--- OUTSIDE RECORDS SUMMARY | 2023-10-11 02:55 | External Medical Summary ---
Author Name Unknown Address Unknown Organization K01:[place] [facility] [place] [facility] [address] [place] [address] Laboratory Report Ordering Provider Test Date Status VAN JENKINS 09/28/2023 04:39:00 Final Observation Date Value Abnormality Reference (Units ) Status BUN 09/28/2023 04:39:00 34 Above high normal 6-20 (mg/dL) Final Creatinine 09/28/2023 04:39:00 1.7 Above high normal 0.6-1.2 (mg/dL) Final Glomerular filtration rate/1.73 sq M.predicted [Volume Rate/Area] in Serum, Plasma or Blood by Creatinine-based formula (CKD-EPI) 09/28/2023 04:39:00 38 Below low normal >=60 (mL/min) Final eGFR is calculated based on the CKD-EPI 2020 equation SODIUM 09/28/2023 04:39:00 139 135-146 (m mol/L) Final Potassium 09/28/2023 04:39:00 4.3 3.5-5.1 (m mol/L) Final Cl 09/28/2023 04:39:00 110 Above high normal 98 -107 (mmol/L) Final CO2 09/28/2023 04:39:00 21 Below low normal 22- 32 (mmol/L) Final Anion gap 09/28/2023 04:39:00 8 7-15 (mmol /L) Final Glucose 09/28/2023 04:39:00 84 70-120 (mg /dL) Final Calcium 09/28/2023 04:39:00 7.9 Below low normal 8.4 -10.2 (mg/dL) Final Albumin 09/28/2023 04:39:00 2.6 Below low normal 3.8 -5.0 (g/dL) Final Phosphate 09/28/2023 04:39:00 2.8 2.5-4.8 (m g/dL) Final Performing Location [place] [facility] [place] [address] [place] [address]
--- OUTSIDE RECORDS SUMMARY | 2023-10-11 02:55 | External Medical Summary ---
Author Name Unknown Address Unknown Organization K01:LAB[facility]ATORY [facility] [place] - [address] [place] [address] Laboratory Report Ordering Provider Test Date Status HUYEN LINK 09/27/2023 21:36:00 Final Anticoagulation may affect t esting. Refer to [employer] Test Catalog for a list of effects. Observation Date Value Abnormality Reference (Units ) Status aPTT panel - Platelet poor plasma 09/27/2023 21:36:00 101 Above high normal 21-38 (seconds) Final Performing Location LABORATORY [facility] [place] - [address] [place] [address]
--- OUTSIDE RECORDS SUMMARY | 2023-10-11 02:55 | External Medical Summary ---
Author Name Unknown Address Unknown Organization K01:LABORATORY [facility] [place] - [facility] [address] [place] [address] Laboratory Report Ordering Provider Test Date Status VAN JENKINS 09/30/2023 06:37:00 Final Observation Date Value Abnormality Reference (Units ) Status BUN 09/30/2023 06:37:00 38 Above high normal 6-20 (mg/dL) Final Creatinine 09/30/2023 06:37:00 1.7 Above high normal 0.6-1.2 (mg/dL) Final Glomerular filtration rate/1.73 sq M.predicted [Volume Rate/Area] in Serum, Plasma or Blood by Creatinine-based formula (CKD-EPI) 09/30/2023 06:37:00 40 Below low normal >=60 (mL/min) Final eGFR is calculated based on the CKD-EPI 2020 equation SODIUM 09/30/2023 06:37:00 140 135-146 (m mol/L) Final Potassium 09/30/2023 06:37:00 4.1 3.5-5.1 (m mol/L) Final Cl 09/30/2023 06:37:00 111 Above high normal 98 -107 (mmol/L) Final CO2 09/30/2023 06:37:00 22 22-32 (mmo l/L) Final Anion gap 09/30/2023 06:37:00 7 7-15 (mmol /L) Final Glucose 09/30/2023 06:37:00 98 70-120 (mg /dL) Final Calcium 09/30/2023 06:37:00 8.0 Below low normal 8.4 -10.2 (mg/dL) Final Albumin 09/30/2023 06:37:00 2.9 Below low normal 3.8 -5.0 (g/dL) Final Phosphate 09/30/2023 06:37:00 2.9 2.5-4.8 (m g/dL) Final Performing Location LABORATORY [facility] [place] - [address] [place] [address]
--- OUTSIDE RECORDS SUMMARY | 2023-10-11 02:55 | External Medical Summary ---
Author Name Unknown Address Unknown Organization K01:LABORATORY [facility] [place] - [address] [place] [address] Laboratory Report Ordering Provider Test Date Status VAN JENKINS 09/28/2023 04:39:00 Final Warfarin Therapy
INR: 2 .0-3.0 conventional anticoagulation
INR: 2.5- 3.5 high intensity anticoagulation Observation Date Value Abnormality Reference (Units ) Status PT 09/28/2023 04:39:00 14.9 11.6-15.2 (seconds) Final INR 09/28/2023 04:39:00 1.2 0.8-1.2 Final Performing Location LABORATORY [facility] [place] - [address] [place] [address]
--- OUTSIDE RECORDS SUMMARY | 2023-10-11 02:55 | External Medical Summary ---
Author Name Unknown Address Unknown Organization K01:[facility] [place] - [address] [place] [address] Laboratory Report Ordering Provider Test Date Status HUYEN LINK 09/29/2023 01:57:00 Final Anticoagulation may affect t esting. Refer to [employer] Test Catalog for a list of effects. Observation Date Value Abnormality Reference (Units ) Status aPTT panel - Platelet poor plasma 09/29/2023 01:57:00 107 Above high normal 21-38 (seconds) Final Performing Location LABOR[facility]ORY [facility] [place] - [address] [place] [address]
--- OUTSIDE RECORDS SUMMARY | 2023-10-11 02:55 | External Medical Summary ---
Author Name Unknown Address Unknown Organization K01:[place] [facility] [place] [facility] [address] [facility] [address] Laboratory Report Ordering Provider Test Date Status VAN JENKINS 09/28/2023 04:39:00 Final Observation Date Value Abnormality Reference (Units ) Status WBC, Total 09/28/2023 04:39:00 5.93 4.00-10.80 (K/uL) Final RBC 09/28/2023 04:39:00 2.52 4.50-5.25 (M/uL) Final Hemoglobin 09/28/2023 04:39:00 9.1 Below low normal 14.0-16.8 (g/dL) Final HCT 09/28/2023 04:39:00 28.3 Below low normal 40.0-48.4 (%) Final MCV 09/28/2023 04:39:00 112.3 82.0-99.5 (fL) Final MCH 09/28/2023 04:39:00 36.1 27.0-34.0 (pg) Final MCHC 09/28/2023 04:39:00 32.2 32.0-36.0 (g/dL) Final RDW 09/28/2023 04:39:00 12.8 11.5-15.5 (%) Final Platelets 09/28/2023 04:39:00 110 Below low normal 140-400 (K/uL) Final MPV 09/28/2023 04:39:00 10.7 6.6-11.1 (fL) Final Nucleated erythrocytes/100 leukocytes [Ratio] in Blood by Automated count 09/28/2023 04:39:00 0 <=0 (/100 WBCs) Final Performing Location [facility] [place] [facility] [place] [address]
--- OUTSIDE RECORDS SUMMARY | 2023-10-11 02:55 | External Medical Summary ---
Author Name Unknown Address Unknown Organization K01:[place] [place] [address] [place] [address] Laboratory Report Ordering Provider Test Date Status HUYEN LINK 09/28/2023 04:39:00 Final Patient on heparin drip

Anticoagulation may affect testing. Refer to [employer] Test Catalog for a list of effects. Observation Date Value Abnormality Reference (Units ) Status aPTT panel - Platelet poor plasma 09/28/2023 04:39:00 74 Above high normal 21-38 (seconds) Final Performing Location [facility] [place] - [facility] [address] [place] [address]
--- OUTSIDE RECORDS SUMMARY | 2023-10-11 02:55 | External Medical Summary ---
Author Name Unknown Address Unknown Organization K01:LABORATORY [facility] [place] - [address] [facility] [address] Laboratory Report Ordering Provider Test Date Status VAN JENKINS 09/29/2023 08:56:00 Final Observation Date Value Abnormality Reference (Units ) Status BUN 09/29/2023 08:56:00 35 Above high normal 6-20 (mg/dL) Final Creatinine 09/29/2023 08:56:00 1.5 Above high normal 0.6-1.2 (mg/dL) Final Glomerular filtration rate/1.73 sq M.predicted [Volume Rate/Area] in Serum, Plasma or Blood by Creatinine-based formula (CKD-EPI) 09/29/2023 08:56:00 45 Below low normal >=60 (mL/min) Final eGFR is calculated based on the CKD-EPI 2020 equation SODIUM 09/29/2023 08:56:00 141 135-146 (m mol/L) Final Potassium 09/29/2023 08:56:00 3.9 3.5-5.1 (m mol/L) Final Cl 09/29/2023 08:56:00 112 Above high normal 98 -107 (mmol/L) Final CO2 09/29/2023 08:56:00 21 Below low normal 22- 32 (mmol/L) Final Anion gap 09/29/2023 08:56:00 8 7-15 (mmol /L) Final Glucose 09/29/2023 08:56:00 86 70-120 (mg /dL) Final Calcium 09/29/2023 08:56:00 8.0 Below low normal 8.4 -10.2 (mg/dL) Final Albumin 09/29/2023 08:56:00 2.7 Below low normal 3.8 -5.0 (g/dL) Final Phosphate 09/29/2023 08:56:00 2.3 Below low normal 2.5 -4.8 (mg/dL) Final Performing Location LABORATORY [facility] [place] - [address] [facility] [address]
--- OUTSIDE RECORDS SUMMARY | 2023-10-11 02:55 | External Medical Summary ---
Author Name Unknown Address Unknown Organization K01:[place]ORY [facility] [place] - [facility] [address] [facility] [address] Laboratory Report Ordering Provider Test Date Status VAN JENKINS 09/29/2023 08:56:00 Final Observation Date Value Abnormality Reference (Units ) Status WBC, Total 09/29/2023 08:56:00 5.45 4.00-10.80 (K/uL) Final RBC 09/29/2023 08:56:00 2.63 4.50-5.25 (M/uL) Final Hemoglobin 09/29/2023 08:56:00 9.3 Below low normal 14.0-16.8 (g/dL) Final HCT 09/29/2023 08:56:00 29.3 Below low normal 40.0-48.4 (%) Final MCV 09/29/2023 08:56:00 111.4 82.0-99.5 (fL) Final MCH 09/29/2023 08:56:00 35.4 27.0-34.0 (pg) Final MCHC 09/29/2023 08:56:00 31.7 32.0-36.0 (g/dL) Final RDW 09/29/2023 08:56:00 12.6 11.5-15.5 (%) Final Platelets 09/29/2023 08:56:00 117 Below low normal 140-400 (K/uL) Final MPV 09/29/2023 08:56:00 10.6 6.6-11.1 (fL) Final Nucleated erythrocytes/100 leukocytes [Ratio] in Blood by Automated count 09/29/2023 08:56:00 0 <=0 (/100 WBCs) Final Performing Location LABORATORY [facility] [place] - [address] [place] [address]
--- OUTSIDE RECORDS SUMMARY | 2023-10-11 02:55 | External Medical Summary ---
Author Name Unknown Address Unknown Organization K01:[place] [facility] [place] [address] [facility] [address] Laboratory Report Ordering Provider Test Date Status ANTONSEWELL 09/30/2023 06:37:00 Final Observation Date Value Abnormality Reference (Units ) Status SYNC LEUKOCYTES IN BLOOD BY AUTOMATED COUNT 09/30/2023 06:37:00 6.65 4.00-10.80 (K/uL) Final Segs 09/30/2023 06:37:00 65.7 40.0-75.0 (%) Final Lymphs % 09/30/2023 06:37:00 15.7 Below low normal 18.0-42.0 (%) Final Monos 09/30/2023 06:37:00 12.3 Above high normal 1.0-11.0 (%) Final Eosinophils 09/30/2023 06:37:00 5.0 0.0-6.0 (%) Final Basos 09/30/2023 06:37:00 1.0 0.0-2.0 (%) Final Immature Granulocyte, Percent 09/30/2023 06:37:00 0.3 0.0-2.0 (%) Final Absolute Segs 09/30/2023 06:37:00 4.44 1.80-7.70 (K/uL) Final Lymphs, absolute 09/30/2023 06:37:00 1.06 1.00-4.80 (K/ul) Final Monos, Abs 09/30/2023 06:37:00 0.83 0.00-1.10 (K/uL) Final Eos, Abs 09/30/2023 06:37:00 0.34 0.00-0.70 (K/uL) Final Basos, Abs 09/30/2023 06:37:00 0.07 0.00-0.20 (K/uL) Final Immature Granulocytes, Number 09/30/2023 06:37:00 0.02 0.00-0.20 (K/uL) Final Performing Location [place] [facility] [place] [address] [facility] [address]
--- OUTSIDE RECORDS SUMMARY | 2023-10-11 02:55 | External Medical Summary | Summary of Care ---
Author Name Unknown Organization [facility] Address [address] [place] [address] Phone [phone] Care Team Providers Care Blueprint Blocker Name Role Phone Payam Claire DO Primary Care Provider [phone] Encounter Details Date Type Department Care Team (Latest Contact Info) Description 09/25/2023 5:30 AM EDT - 09/25/2023 10:20 AM EDT Hospital Encounter Radiology Film File [address] [place] [address] Arrived Discharge Disposition: Home - Self Care Allergies No known active allergiesdocumented as of this encounter (statuses as of 09/27/2023) Medications Medication Sig Dispensed Refills Start Date End Date Status Nitroglycerin 0.4 MG Sublingual Tablet SublingualIndicati ons:Coronary artery disease involving [place] coronary artery of [place] heart without angina pectoris Place 1 Tablet under the tongue every 5 minutes as needed for Pain, Chest. 0 Suspended Lisinopril 5 MG Oral Tablet (PRINIVIL)Indicati ons:Coronary artery disease involving [place] coronary artery of [place] heart without angina pectoris Take 1 Tablet by mouth in the morning. 0 Suspended Apixaban 5 MG Oral TabletIndications: Paroxysmal atrial fibrillation (HCC) Take 1 Tablet by mouth in the morning and 1 Tablet before bedtime. 0 Suspended Clopidogrel Bisulfate 75 MG Oral Tablet (pLAVix)Indication s:Coronary artery disease involving [place] coronary artery of [place] heart without angina pectoris Take 1 Tablet by mouth in the morning. 0 Suspended Vitamin D (Cholecalciferol) 50 MCG (1999 UT) Oral Capsule Take by mouth. 0 Suspende d Diclofenac Sodium 1 % Transdermal Gel Place topically on the skin 4 times a day. Apply to to back as needed 0 Suspended Rosuvastatin Calcium 10 MG Oral Tablet (Crestor) Take 1 Tablet by mouth in the morning. Take one daily at bedtime . 0 Suspended Fluticasone Propionate 50 MCG/ACT Nasal Suspension Administer 1 [place] into nostril in the morning. 0 Suspended Spironolactone 100 MG Oral Tablet (Aldactone) Take 1 Tablet by mouth in the morning. 0 Suspended Metoprolol Succinate ER 25 MG Oral Tablet Extended Release 24 Hour (Toprol XL)Indications:Cor onary artery disease involving [place] coronary artery of [place] heart without angina pectoris Take 1 Tab by mouth 2 times a day. 180 Tab 3 09/04/2021 Suspended Additional Information FLUoxetine HCl 10 MG Oral Tablet (PROzac) Take 1 Tablet by mouth in the morning. 0 Suspended Ketoconazole 2 % External CreamIndications:S eborrheic dermatitis of scalp Apply behind ears twice daily as needed for flares 30 g 0 07/02/2022 Suspended Additional Information Ketoconazole 2 % External Shampoo (Nizoral)Indicatio ns:Seborrheic dermatitis of scalp Apply to scalp and behind ears 2-3 times per week; leave on 3-5 min before rinsing 120 mL 1 07/08/2022 Suspended Additional Information Ferrous Sulfate 325 (65 Fe) MG Oral Tablet Take 1 Tablet by mouth in the morning and 1 Tablet at noon and 1 Tablet in the evening. Take with meals. Take twice per day with meals . 0 Suspended Acetaminophen 500 MG Oral Tablet Take 1 Tablet by mouth in the morning and 1 Tablet in the evening. 0 Suspended Docusate Sodium 100 MG Oral Capsule (Colace) Take 1 Capsule by mouth daily. 0 Suspended Loratadine 10 MG Oral Capsule Take 1 Capsule by mouth in the morning. 0 Suspended Melatonin 3 MG Oral Capsule Take 1 Capsule by mouth at bedtime as needed. 0 Suspended Furosemide 40 MG Oral Tablet (Lasix)Indications :Acute on chronic systolic (congestive) heart failure (HCC) Furosemide 60 mg oral daily alteranting 80 mg every other day 120 Tablet 3 08/15/2023 Suspended Additional Information Torsemide 40 MG Oral Tablet Take 40 mg by mouth. 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 Permanent atrial fibrillation documented as of this encounter (statuses as of 09/27/2023) Resolved Problems Problem Noted Date Diagnosed Date Resolved Date Dyslipidemia, goal LDL below 70 01/31/2021 01/13/2023 documented as of this encounter (statuses as of 09/27/2023) Immunizations Name Administration Dates Next Due COVID-19 [...] 10/09/2023 1:00 PM EST Office Visit Nephrology [address] [place] [address] Gisele Daugherty MD [address] [place] [address] [place] [address] 10/28/2023 10:30 AM EST Appointment Radiology, [address] [place] [address] 10/28/2023 11:30 AM EST Procedure Only Urology, [address] [facility] [address] Garrick Dorman MD [address] [place] [address] 11/18/2023 2:00 PM EST Cardiac Studies Cardiology, [facility] [address] [place] [address] [place], Pacer Clinic [facility] [address] [facility] [place] [place] [address] 11/21/2023 1:50 PM EST Office Visit Dermatology [facility] [address] [place] [address] Lavonne Herzog, [place] [address] [facility] [address] 02/24/2024 4:20 PM EDT Office Visit Neurology [facility] [address] [place] [address] Chicho Steward, DO 200 [place] [address] 04/16/2024 1:00 PM EDT Office Visit Family Practice [facility] [address] [place] [address] Payam Claire, DO 200 [facility] [place] [address] Health Maintenance Due Date Last Done Comments Albumin/Creatinine Ratio 1957 Zoster Vaccines (2 of 3) 11/08/2013 09/13/2013 Depression Screening 04/11/2022 04/11/2021 COVID-19 Vaccine (2022- season) 2023 02/10/2021, 01/02/2021 GFR 03/28/2024 09/27/2023, 09/01, 09/25/2023, Additional history exists CKD HGB USE SMARTSET 10885 09/27/202409/27, 09/26/2023, 09/25/2023, Additional history exists CKD PHOS USE SMARTSET 96079 09/27/202409/01, 09/26/2023, 09/25/2023, Additional history exists DTaP,Tdap,and Td Vaccines (2 [...] Procedure Name Priority Date/Time Associated Diagnosis Comments RADIOLOGY EXAM - US (IMAGES ONLY, NO REPORT) Routine 09/25/2023 5:30 AM EDT documented in this encounter Results * RADIOLOGY EXAM - US (IMAGES ONLY, NO REPORT) (09/25/2023 5:30 AM EDT) 09/25/2023 5:30 AM EDT Narrative Scheduling, Silent - 09/26/2023 10:13 AM EDT This is an imaging study not interpreted or resulted by a [facility] or [facility] radiologist. Dimitry TABARES ULTRASOUND documented in this encounter Advance Directives Documents on File Type Date Recorded Patient [employer] Wholesale [employer] Advisor Expl anation Power of Communications Station Manager 11/29/2019 POWER OF A TTORNEY Latest Code Status on File Code Status Date Activated Date Inactivated Comments No Code 09/25/2023 12:41 PM This ord er reflects the patients wishes and were consensually [...] Agents on File Name Relationship Healthcare Agent [facility] [place] Troy Adult Child Health Care Age nt (per Health Care Power of Communications Station Manager document) Care Teams Blueprint Blocker Relationship Specialty Start Date End Date Payam Claire DO [address] [place] [address] PCP - General Family Medicine 09/08/23 documented as of this encounter
--- OUTSIDE RECORDS SUMMARY | 2023-10-11 02:55 | External Medical Summary ---
Author Name Unknown Address Unknown Organization [id number][place] [facility] [place] [address] [place] [address] Laboratory Report Ordering Provider Test Date Status VAN JENKINS 09/30/2023 06:37:00 Final Warfarin Therapy
INR: 2 .0-3.0 conventional anticoagulation
INR: 2.5- 3.5 high intensity anticoagulation Observation Date Value Abnormality Reference (Units ) Status PT 09/30/2023 06:37:00 14.9 11.6-15.2 (seconds) Final INR 09/30/2023 06:37:00 1.2 0.8-1.2 Final Performing Location [facility] [place] [address] [place] [address]
--- OUTSIDE RECORDS SUMMARY | 2023-10-11 02:55 | External Medical Summary ---
Author Name Unknown Address Unknown Organization [id number]:[facility] [place] [address] [place] [address] Laboratory Report Ordering Provider Test Date Status VAN JENKINS 09/29/2023 08:56:00 Final Warfarin Therapy
INR: 2 .0-3.0 conventional anticoagulation
INR: 2.5- 3.5 high intensity anticoagulation Observation Date Value Abnormality Reference (Units ) Status PT 09/29/2023 08:56:00 14.3 11.6-15.2 (seconds) Final INR 09/29/2023 08:56:00 1.1 0.8-1.2 Final Performing Location [facility] [place] [address] [place] [address]
--- OUTSIDE RECORDS SUMMARY | 2023-10-11 02:56 | External Medical Summary | Summary of Care ---
Author Name Unknown Organization [facility] Address [address] [place] [address] Phone [phone] Care Team Providers Care Manager Switch Name Role Phone Payam Claire DO Primary Care Provider [phone] Encounter Details Date Type Department Care Team (Late st Contact Info) Description 09/23/2023 Orders Only Acute Care Treatment Area[address] [address] Dimitry Garcia DO [address] [facility] [place] [address] Allergies No known active allergiesdocumented as of this encounter (statuses as of 09/26/2023) Medications Medication Sig Dispensed Refills Start Date End Date Status Nitroglycerin 0.4 MG Sublingual Tablet SublingualIndicati ons:Coronary artery disease involving [place] coronary artery of [place] heart without angina pectoris Place 1 Tablet under the tongue every 5 minutes as needed for Pain, Chest. 0 Suspended Lisinopril 5 MG Oral Tablet (PRINIVIL)Indicati ons:Coronary artery disease involving [place] coronary artery of [place] heart without angina pectoris Take 1 Tablet by mouth in the morning. 0 Suspended Apixaban 5 MG Oral TabletIndications: Paroxysmal atrial fibrillation (HCC) Take 1 Tablet by mouth in the morning and 1 Tablet before bedtime. 0 Suspended Clopidogrel Bisulfate 75 MG Oral Tablet (pLAVix)Indication s:Coronary artery disease involving [place] coronary artery of [place] heart without angina pectoris Take 1 Tablet by mouth in the morning. 0 Suspended Vitamin D (Cholecalciferol) 50 MCG (1999) Oral Capsule Take by mouth. 0 Suspende d Diclofenac Sodium 1 % Transdermal Gel Place topically on the skin 4 times a day. Apply to to back as needed 0 Suspended Rosuvastatin Calcium 10 MG Oral Tablet (Crestor) Take 1 Tablet by mouth in the morning. Take one daily at bedtime . 0 Suspended Fluticasone Propionate 50 MCG/ACT Nasal Suspension Administer 1 Melbeta into nostril in the morning. 0 Suspended Spironolactone 100 MG Oral Tablet (Aldactone) Take 1 Tablet by mouth in the morning. 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 Permanent atrial fibrillation documented as of this encounter (statuses as of 09/26/2023) Resolved Problems Problem Noted Date Diagnosed Date Resolved Date Dyslipidemia, goal LDL below 70 01/31/2021 01/13/2023 documented as of this encounter (statuses as of 09/26/2023) Immunizations Name Administration Dates Next Due COVID-19 [...] on file documented as of this encounter Plan of Treatment Upcoming Encounters Date Type Department Care Team (Late st Contact Info) Description 10/09/2023 1:00 PM EST Office Visit Nephrology [address] [place] [address] Gisele Daugherty MD 200 [facility] [place] [address] 10/28/2023 10:30 AM EST Appointment Radiology, [place] [address] [place] [address] 10/28/2023 11:30 AM EST Procedure Only Urology, [place] [address] [place] [address] Garrick Dorman MD [address] [place], [place] [id number] 11/18/2023 2:00 PM EST Cardiac Studies Cardiology, [facility] 132 [facility] [place] [address] [place], Pacer Clinic [facility] 132 [facility] [place] [address] 11/21/2023 1:50 PM EST Office Visit Dermatology [facility] [place]ac[place] 200 [facility] [place] [address] Lavonne Herzog PA-C [address] [place] [address] 02/24/2024 4:20 PM EDT Office Visit Neurology [facility] [address] [place] [address] Chicho Steward, DO 200 [facility] [place] [address] 04/16/2024 1:00 PM EDT Office Visit Family Practice [facility] [address] [place] [address] Payam Claire, DO 200 [facility] [place] [address] Health Maintenance Due Date Last Done Comments Albumin/Creatinine Ratio 1957 Zoster Vaccines (2 of 3) 11/08/2013 09/13/2013 Depression Screening 04/11/2022 04/11/2021 COVID-19 Vaccine ( season) 2023 02/10/2021, 01/02/2021 GFR 03/27/2024 09/26/2023, 09/01, 09/19/2023, Additional history exists CKD HGB USE SMARTSET 08389 09/26/202409/26, 09/25/2023, 09/19/2023, Additional history exists CKD PHOS USE SMARTSET 41396 09/26/202409/01, 09/25/2023, 01/08/2016 DTaP,Tdap,and Td Vaccines (2 - Td or [...] Date/Time Associated Diagnosis Comments RADIOLOGY EXAM - CT (IMAGES ONLY, NO REPORT) Routine 09/23/2023 12:10 AM EDT documented in this encounter Results * RADIOLOGY EXAM - CT (IMAGES ONLY, NO REPORT) (09/23/2023 12:10 AM EDT) 09/23/2023 12:1 0 AM EDT Narrative Scheduling, Silent - 09/26/2023 10:06 AM EDT This is an imaging study not interpreted or resulted by a [facility] or [employer] contracted radiologist. 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
--- OUTSIDE RECORDS SUMMARY | 2023-10-11 02:56 | External Medical Summary ---
Author Name Unknown Address Unknown Organization [id number]:[facility] [place] [address] [place] [address] Laboratory Report Ordering Provider Test Date Status HYUEN LINK 09/27/2023 15:01:00 Final Anticoagulation may affect t esting. Refer to [employer] Test Catalog for a list of effects. Observation Date Value Abnormality Reference (Units ) Status aPTT panel - Platelet poor plasma 09/27/2023 15:01:00 81 Above high normal 21-38 (seconds) Final Performing Location [facility] [place] [address] [place] [address]
--- OUTSIDE RECORDS SUMMARY | 2023-10-11 02:56 | External Medical Summary ---
Author Name Unknown Address Unknown Organization [id number]:[facility] [place] [address] [facility] [address] [facility] [address] Laboratory Report Ordering Provider Test Date Status VAN JENKINS 09/27/2023 05:05:00 Final Observation Date Value Abnormality Reference (Units ) Status WBC, Total 09/27/2023 05:05:00 7.13 4.00-10.80 (K/uL) Final RBC 09/27/2023 05:05:00 2.61 4.50-5.25 (M/uL) Final Hemoglobin 09/27/2023 05:05:00 9.4 Below low normal 14.0-16.8 (g/dL) Final HCT 09/27/2023 05:05:00 28.8 Below low normal 40.0-48.4 (%) Final MCV 09/27/2023 05:05:00 110.3 82.0-99.5 (fL) Final MCH 09/27/2023 05:05:00 36.0 27.0-34.0 (pg) Final MCHC 09/27/2023 05:05:00 32.6 32.0-36.0 (g/dL) Final RDW 09/27/2023 05:05:00 12.8 11.5-15.5 (%) Final Platelets 09/27/2023 05:05:00 106 Below low normal 140-400 (K/uL) Final MPV 09/27/2023 05:05:00 10.6 6.6-11.1 (fL) Final Nucleated erythrocytes/100 leukocytes [Ratio] in Blood by Automated count 09/27/2023 05:05:00 0 <=0 (/100 WBCs) Final Performing Location LAB[facility]ORY [facility] [place] - [address] [place] [address]
--- OUTSIDE RECORDS SUMMARY | 2023-10-11 02:56 | External Medical Summary ---
Author Name Unknown Address Unknown Organization K01:[facility] [facility] [place] [address] [place] [address] Laboratory Report Ordering Provider Test Date Status MELODIE WALTON 09/26/2023 14:03:00 Final Anticoagulation may affect t esting. Refer to [employer] Test Catalog for a list of effects. Observation Date Value Abnormality Reference (Units ) Status aPTT panel - Platelet poor plasma 09/26/2023 14:03:00 88 Above high normal 21-38 (seconds) Final Performing Location [facility] [facility] [place] [address] [place] [address]
--- OUTSIDE RECORDS SUMMARY | 2023-10-11 02:56 | External Medical Summary ---
Author Name Unknown Address Unknown Organization K01:[facility] [place] [address] [place] [address] Laboratory Report Ordering Provider Test Date Status VAN JENKINS 09/25/2023 18:06:00 Final Warfarin Therapy
INR: 2 .0-3.0 conventional anticoagulation
INR: 2.5- 3.5 high intensity anticoagulation Observation Date Value Abnormality Reference (Units ) Status PT 09/25/2023 18:06:00 14.4 11.6-15.2 (seconds) Final INR 09/25/2023 18:06:00 1.1 0.8-1.2 Final Performing Location LAB[facility] [place] - [address] [place] [address]
--- OUTSIDE RECORDS SUMMARY | 2023-10-11 02:56 | External Medical Summary ---
Author Name Unknown Address Unknown Organization K01:LABORATORY [facility] - [address] [place] [address] Laboratory Report Ordering Provider Test Date Status LLUVIA MONTERROSO 09/25/2023 21:35:00 Final Observation Date Value Abnormality Reference (Units ) Status Hep A IgM 09/25/2023 21:35:00 Negative Negative Final Hep B Core IgM 09/25/2023 21:35:00 Negative Negat sheila Final Hep B surface Ag 09/25/2023 21:35:00 Negative Neg ative Final Hep C Ab 09/25/2023 21:35:00 Negative Negative Final Performing Location LABORATORY [facility] - [address] [place] [address]
--- OUTSIDE RECORDS SUMMARY | 2023-10-11 02:56 | External Medical Summary ---
Author Name Unknown Address Unknown Organization K01:[facility] [place] [facility] [place] [address] Laboratory Report Ordering Provider Test Date Status VAN JENKINS 09/25/2023 18:06:00 Final Observation Date Value Abnormality Reference (Units ) Status [place] light chains, Free, Serum 09/25/2023 18:06:00 80.05 Above high normal 3.30-19.40 (mg/L) Final Lambda light chains, free, Serum 09/25/2023 18:06:00 31.99 Above high normal 5.71-26.30 (mg/L) Final KAPPA LAMBDA FLC RATIO 09/25/2023 18:06:00 2.50 Above high normal 0.26-1.65 Final Performing Location [facility] [place] [address] [place] [address]
--- OUTSIDE RECORDS SUMMARY | 2023-10-11 02:56 | External Medical Summary ---
Author Name Unknown Address Unknown Organization K01:[facility] [place] [address] [place] [address] Laboratory Report Ordering Provider Test Date Status VAN JENKINS 09/26/2023 05:35:00 Final Warfarin Therapy
INR: 2 .0-3.0 conventional anticoagulation
INR: 2.5- 3.5 high intensity anticoagulation Observation Date Value Abnormality Reference (Units ) Status PT 09/26/2023 05:35:00 15.3 Above high normal 11 .6-15.2 (seconds) Final INR 09/26/2023 05:35:00 1.2 0.8-1.2 Final Performing Location LAB[facility] [place] [place] [address] [place] [address]
--- OUTSIDE RECORDS SUMMARY | 2023-10-11 02:56 | External Medical Summary ---
Author Name Unknown Address Unknown Organization K01[place] [facility] [place] [address] [facility] [address] Laboratory Report Ordering Provider Test Date Status ALICEBENNYARAUJO 09/26/2023 07:31:00 Final Get stat/now aPTT [address] each heparin dose adjustment

Anticoagulation may affect testing. Refer to [employer] [facility] Test Catalog for a list of effects. Observation Date Value Abnormality Reference (Units ) Status aPTT panel - Platelet poor plasma 09/26/2023 07:31:00 >150 Above upper panic limits 21-38 (seconds) Final Performing Location [facility] [place] [facility] [address] [facility] [address]
--- OUTSIDE RECORDS SUMMARY | 2023-10-11 02:56 | External Medical Summary ---
Author Name Unknown Address Unknown Organization K01:[facility] [facility] [place] [address] [facility] [address] Laboratory Report Ordering Provider Test Date Status VAN JENKINS 09/25/2023 18:06:00 Final Observation Date Value Abnormality Reference (Units) Status Protein 18:06:00 5.3 Below low normal 6.0-8.3 (g/dL) Final Albumin/Protein.tota l [Pure mass fraction] in Serum or Plasma by Electrophoresis 18:06:00 2.97 Below low normal 3.30-4.40 (g/dL) Final Alpha 1 globulin/Protein.tot al [Pure mass fraction] in Serum or Plasma by Electrophoresis 18:06:00 0.20 0.10-0.30 (g/dL) Final Alpha 2 globulin/Protein.tot al [Pure mass fraction] in Serum or Plasma by Electrophoresis 18:06:00 0.85 0.60-1.00 (g/dL) Final Beta globulin/Protein.tot al [Pure mass fraction] in Serum or Plasma by Electrophoresis 18:06:00 0.64 Below low normal 0.80-1.30 (g/dL) Final Gamma globulin/Protein.tot al [Pure mass fraction] in Serum or Plasma by Electrophoresis 18:06:00 0.63 Below low normal 0.70-1.70 (g/dL) Final Protein Fractions [Interpretation] in Serum or Plasma by Electrophoresis Narrative 18:06:00 A paraprotein is present. Decreased gamma fraction. Paraprotein concentration is detectable, but less than 0.5 g/dL, unable to be accurately quantified by this method. Appropriate studies including quantitative immunoglobulins, serum free light chains, Final Protein Fractions [Interpretation] in Serum or Plasma by Electrophoresis Narrative 18:06:00 and serum immunofixation have been ordered in follow up. See serum immunofixation results. Urine immunofixation recommended in follow up if clinically indicated. Final Performing Location [facility] [place] [facility] [address] [facility] [address]
--- OUTSIDE RECORDS SUMMARY | 2023-10-11 02:56 | External Medical Summary ---
Author Name Unknown Address Unknown Organization K01:[facility] [place] - [facility] [address] [facility] [address] [facility] [address] Laboratory Report Ordering Provider Test Date Status VNA JENKINS 09/26/2023 05:35:00 Final Observation Date Value Abnormality Reference (Units ) Status WBC, Total 09/26/2023 05:35:00 6.90 4.00-10.80 (K/uL) Final RBC 09/26/2023 05:35:00 2.63 4.50-5.25 (M/uL) Final Hemoglobin 09/26/2023 05:35:00 9.3 Below low normal 14.0-16.8 (g/dL) Final HCT 09/26/2023 05:35:00 29.5 Below low normal 40.0-48.4 (%) Final MCV 09/26/2023 05:35:00 112.2 82.0-99.5 (fL) Final MCH 09/26/2023 05:35:00 35.4 27.0-34.0 (pg) Final MCHC 09/26/2023 05:35:00 31.5 32.0-36.0 (g/dL) Final RDW 09/26/2023 05:35:00 12.9 11.5-15.5 (%) Final Platelets 09/26/2023 05:35:00 104 Below low normal 140-400 (K/uL) Final MPV 09/26/2023 05:35:00 11.2 6.6-11.1 (fL) Final Nucleated erythrocytes/100 leukocytes [Ratio] in Blood by Automated count 09/26/2023 05:35:00 0 <=0 (/100 WBCs) Final Performing Location [facility] [place] - [address] [place] [address]
--- OUTSIDE RECORDS SUMMARY | 2023-10-11 02:56 | External Medical Summary ---
Author Name Unknown Address Unknown Organization K01:LABORATORY C - [address] [place] [address] Laboratory Report Ordering Provider Test Date Status VAN JENKINS 09/25/2023 18:06:00 Final Observation Date Value Abnormality Reference (Units ) Status LDH 09/25/2023 18:06:00 337 Above high normal <= 250 (U/L) Final Performing Location [facility] - [address] [place] [address]
--- OUTSIDE RECORDS SUMMARY | 2023-10-11 02:56 | External Medical Summary ---
Author Name Unknown Address Unknown Organization K01:LAB[facility]ATORY [facility] [place] - [address] [facility] The[address]. [facility] [address] Laboratory Report Ordering Provider Test Date Status ALICEARAUJO 09/26/2023 20:38:00 Final Get stat/now aPTT [address] each heparin dose adjustment

Anticoagulation may affect testing. Refer to [facility] Test Catalog for a list of effects. Observation Date Value Abnormality Reference (Units ) Status aPTT panel - Platelet poor plasma 09/26/2023 20:38:00 82 Above high normal 21-38 (seconds) Final Performing Location LAB[facility]ATORY [facility] - [facility] [address]
--- OUTSIDE RECORDS SUMMARY | 2023-10-11 02:56 | External Medical Summary ---
Author Name Unknown Address Unknown Organization K01:[facility]ATORY [facility] [place] [address] [place] [address] Laboratory Report Ordering Provider Test Date Status VAN JENKINS 09/25/2023 18:06:00 Final Observation Date Value Abnormality Reference (Units) Status Immunofixation for Serum or Plasma 09/25/2023 18:06:00 A monoclonal IgG kappa gammopathy is present. Final Performing Location LABORATORY C - [address] [place] [address]
--- OUTSIDE RECORDS SUMMARY | 2023-10-11 02:56 | External Medical Summary ---
Author Name Unknown Address Unknown Organization : Laboratory Report Ordering Provider Test Date Status VAN JENKINS 09/25/2023 18:06:00 Final Observation Date Value Abnormality Reference (Units ) Status METHYLMALONIC ACID 09/25/2023 18:06:00 287 8 7-318 (nmol/L) Final This test was developed and its analytical performance
characteristics have been determined by [facility] [employer]
[place] It has
not been cleared or approved by the U.S. Food and Drug
Administration. This assay has been validated pursuant
to the CLIA regulations and is used for clinical
purposes.

Test Performed at:
[facility]
[address] [facility]
[place] [address]
Boy Gomez M.D., Ph.D.,Director of Laboratories Performing Location
--- OUTSIDE RECORDS SUMMARY | 2023-10-11 02:56 | External Medical Summary | Summary of Care ---
Author Name Unknown Organization [facility] Address [address] [place] [address] Phone [phone] Care Team Providers Care Sack Filler Name Role Phone Payam Claire DO Primary Care Provider [phone] Encounter Details Date Type Department Care Team (Late st Contact Info) Description 09/25/2023 Orders Only Acute Care Treatment Area[address] [address] Dimitry Garcia DO [address] [facility] [place] [address] Allergies No known active allergiesdocumented as of this encounter (statuses as of 09/26/2023) Medications Medication Sig Dispensed Refills Start Date End Date Status Nitroglycerin 0.4 MG Sublingual Tablet SublingualIndicati ons:Coronary artery disease involving [place] coronary artery of [place] heart without angina pectoris Place 1 Tablet under the tongue every 5 minutes as needed for Pain, Chest. 0 Suspended Lisinopril 5 MG Oral Tablet (PRINIVIL)Indicati ons:Coronary artery disease involving [place] coronary artery of [place] heart without angina pectoris Take 1 Tablet by mouth in the morning. 0 Suspended Apixaban 5 MG Oral TabletIndications: Paroxysmal atrial fibrillation (HCC) Take 1 Tablet by mouth in the morning and 1 Tablet before bedtime. 0 Suspended Clopidogrel Bisulfate 75 MG Oral Tablet (pLAVix)Indication s:Coronary artery disease involving [place] coronary artery of [place] heart without angina pectoris Take 1 Tablet [...] Propionate 50 MCG/ACT Nasal Suspension Administer 1 [place] into nostril in the morning. 0 Suspended Spironolactone 100 MG Oral Tablet (Aldactone) Take 1 Tablet by mouth in the morning. 0 Suspended Metoprolol Succinate ER 25 MG Oral Tablet Extended Release 24 Hour (Toprol XL)Indications:Cor onary artery disease involving [place] coronary artery of [place] heart without angina pectoris Take 1 Tab [...] Additional Information Patient not taking.Reported on 09/25/2023 Torsemide 40 MG Oral Tablet Take 40 [...] of stroke Coronary artery disease invo lving [place] coronary artery of [place] heart without angina pectoris Pacemaker AICD (automatic [...] 10/09/2023 1:00 PM EST Office Visit Nephrology [address] [place] [address] Gisele Daugherty MD 200 [facility] [place] [address] 10/28/2023 10:30 AM EST Appointment Radiology, [address] [place] [address] 10/28/2023 11:30 AM EST Procedure Only Urology, [place] [address] [facility] [place] [address] Garrick Dorman MD [address] [place] [address] 11/18/2023 2:00 PM EST Cardiac Studies Cardiology, [facility] 132 [place] [address] [place], Pac[facility] 132 [place] [address] 11/21/2023 1:50 PM EST Office Visit Dermatology [facility] [address] [place] [address] Lavonne Herzog PA-Kristen [address] [facility] [place] [address] 02/24/2024 4:20 PM EDT Office Visit Neurology [facility] [place] [address] [place] [address] Chicho Steward, DO [address] [place] [address] 04/16/2024 1:00 PM EDT Office Visit Family Practice [facility] [place] [facility] [place] [address] Payam Claire, DO 200 [facility] [place] [address] Health Maintenance Due Date Last Done Comments Albumin/Creatinine Ratio 1958 Zoster Vaccines (2 of 3) 11/08/2013 09/13/2013 Depression Screening 04/11/2022 04/11/2021 COVID-19 Vaccine (3 - 2022- season) 2023 02/10/2021, 01/02/2021 GFR 03/27/2024 09/26/2023, 09/01, 09/19/2023, Additional history exists CKD HGB USE SMARTSET 19516 09/26/202409/26, 09/25/2023, 09/19/2023, Additional history exists CKD PHOS USE SMARTSET 43978 09/26/202409/01, 09/25/2023, 01/08/2016 DTaP,Tdap,and Td Vaccines (2 [...] study not interpreted or resulted by a [facility] or [facility] contracted radiologist. Dimitry TABARES ULTRASOUND documented in this encounter Advance Directives Documents on File Type Date Recorded Patient Cat Skinner Expl anation Power of Manager Pricing 11/29/2019 [...] Agents on File Name Relationship [facility] Agent [facility] Luis Troy Adult Child Health Care Age nt (per Health Care Power of Manager Pricing document) Care Teams Sack Filler Relationship Specialty Start Date End Date Payam Claire DO [facility] [place] [address] PCP - General Family Medicine 09/08/23 documented as of this encounter
--- OUTSIDE RECORDS SUMMARY | 2023-10-11 02:56 | External Medical Summary ---
Author Name Unknown Address Unknown Organization K01:[facility] [place] [address] [place] [address] Ave. [facility] [address] Laboratory Report Ordering Provider Test Date Status MELODIE [place] 09/26/2023 20:38:00 Final Observation Date Value Abnormality Reference (Units ) Status HIV 1+2 Ab+HIV1 p24 Ag [Presence] in Serum or Plasma by Immunoassay 09/26/2023 20:38:00 Negative Negative Final Negative HIV-1/2 antigen and antibody screening tset results usually indicate the absence of HIV-1 and HIV-2 infection. However, such negative results do not rule-out acute HIV infection. If acute HIV-1 infection is highly suspected, it is recommended that a specimen be submitted for detection of HIV-1 RNA. Performing Location [facility] [place] [facility] [place] [address]
--- OUTSIDE RECORDS SUMMARY | 2023-10-11 02:56 | External Medical Summary ---
Author Name Unknown Address Unknown Organization K01:[facility] [place] [address] [facility] [place] [address] Laboratory Report Ordering Provider Test Date Status VAN JENKINS 09/26/2023 05:35:00 Final Observation Date Value Abnormality Reference (Units ) Status BUN 09/26/2023 05:35:00 28 Above high normal 6-20 (mg/dL) Final Creatinine 09/26/2023 05:35:00 1.6 Above high normal 0.6-1.2 (mg/dL) Final Glomerular filtration rate/1.73 sq M.predicted [Volume Rate/Area] in Serum, Plasma or Blood by Creatinine-based formula (CKD-EPI) 09/26/2023 05:35:00 44 Below low normal >=60 (mL/min) Final eGFR is calculated based on the CKD-EPI 2020 equation SODIUM 09/26/2023 05:35:00 144 135-146 (m mol/L) Final Potassium 09/26/2023 05:35:00 4.0 3.5-5.1 (m mol/L) Final Cl 09/26/2023 05:35:00 112 Above high normal 98 -107 (mmol/L) Final CO2 09/26/2023 05:35:00 21 Below low normal 22- 32 (mmol/L) Final Anion gap 09/26/2023 05:35:00 11 7-15 (mmol /L) Final Glucose 09/26/2023 05:35:00 93 70-120 (mg /dL) Final Calcium 09/26/2023 05:35:00 8.4 8.4-10.2 ( mg/dL) Final Albumin 09/26/2023 05:35:00 3.1 Below low normal 3.8 -5.0 (g/dL) Final Phosphate 09/26/2023 05:35:00 2.8 2.5-4.8 (m g/dL) Final Performing Location [facility] [address] [facility] [address]
--- OUTSIDE RECORDS SUMMARY | 2023-10-11 02:56 | External Medical Summary ---
Author Name Unknown Address Unknown Organization K01:[facility] [place] [address] [facility] [address] [place] [address] Laboratory Report Ordering Provider Test Date Status LLUVIA MONTERROSO 09/25/2023 21:35:00 Final Observation Date Value Abnormality Reference (Units ) Status PSA 09/25/2023 21:35:00 1.62 <4.10 (ng/ mL) Final Performing Location [facility] - [address] [place] [address]
--- OUTSIDE RECORDS SUMMARY | 2023-10-11 02:56 | External Medical Summary | Summary of Care ---
Author Name Unknown Organization [facility] Address [address] [place] [address] Phone [phone] Care Team Providers Care Cane Flume Watcher Name Role Phone Payam Claire DO Primary Care Provider [phone] Encounter Details Date Type Department Care Team (Latest Contact Info) Description 09/23/2023 12:10 AM EDT - 09/23/2023 11:59 PM EDT Hospital Encounter Radiology [place] [address] [place] [address] Discharge Disposition: Home - Self Care Allergies No known active allergiesdocumented as of this encounter (statuses as of 09/27/2023) Medications Medication Sig Dispensed Refills Start Date End Date Status Nitroglycerin 0.4 MG Sublingual Tablet SublingualIndicati ons:Coronary artery disease involving [place] coronary artery of [place] heart without angina pectoris Place 1 Tablet under the tongue every 5 minutes as needed for Pain, Chest. 0 Suspended Lisinopril 5 MG Oral Tablet (PRINIVIL)Indicati ons:Coronary artery disease involving [place] coronary artery of [place] heart without angina pectoris Take 1 Tablet by mouth in the morning. 0 Suspended Apixaban 5 MG Oral TabletIndications: Paroxysmal atrial fibrillation (HCC) Take 1 Tablet by mouth in the morning and 1 Tablet before bedtime. 0 Suspended Clopidogrel Bisulfate 75 MG Oral Tablet (pLAVix)Indication s:Coronary artery disease involving [place] coronary artery of [place] heart without angina pectoris Take 1 Tablet [...] Propionate 50 MCG/ACT Nasal Suspension Administer 1 [place] into nostril in the morning. 0 Suspended Spironolactone 100 MG Oral Tablet (Aldactone) Take 1 Tablet by mouth in the morning. 0 Suspended Metoprolol Succinate ER 25 MG Oral Tablet Extended Release 24 Hour (Toprol XL)Indications:Cor onary artery disease involving [place] coronary artery of [place] heart without angina pectoris Take 1 Tab [...] of stroke Coronary artery disease invo lving [place] coronary artery of [place] heart without angina pectoris Pacemaker AICD (automatic [...] 10/09/2023 1:00 PM EST Office Visit Nephrology [address] [place] [address] Gisele Daugherty MD 200 [place] [address] 10/28/2023 10:30 AM EST Appointment Radiology, [place] [address] [place] [address] 10/28/2023 11:30 AM EST Procedure Only Urology, [place] [address] [place], [place] [id number] Garrick Dorman MD [address] [place] [address] 11/18/2023 2:00 PM EST Cardiac Studies Cardiology, [facility] 132 [place] [address] [place], [facility] 132 [place] [address] 11/21/2023 1:50 PM EST Office Visit Dermatology [facility] [address] [place] [address] Laovnne Herzog PA-C [address] [facility] [place] [address] 02/24/2024 4:20 PM EDT Office Visit Neurology [facility] 200 [facility] [place] [address] Chicho Steward, DO 200 [facility] [place] [address] 04/16/2024 1:00 PM EDT Office Visit Family Practice [facility] [address] [facility] [place] [address] Payam Claire, DO 200 [facility] [place] [address] Health Maintenance Due Date Last Done Comments Albumin/Creatinine Ratio 1957 Zoster Vaccines (2 of 3) 11/08/2013 09/13/2013 Depression Screening 04/11/2022 04/11/2021 COVID-19 Vaccine ( season) 2023 02/10/2021, 01/02/2021 GFR 03/28/2024 09/27/2023, 09/01, 09/25/2023, Additional history exists CKD HGB USE SMARTSET 62979 09/27/202409/27, 09/26/2023, 09/25/2023, Additional history exists CKD PHOS USE SMARTSET 53475 09/27/202409/01, 09/26/2023, 09/25/2023, Additional history exists DTaP,Tdap,and [...] interpreted or resulted by a [facility] or [id number] contracted radiologist. Dimitry Garcia DO RAD CT documented in this encounter Advance Directives Documents on File Type Date Recorded Patient Night Auditor Expl anation Power of Supervisor Nut Processing 11/29/2019 POWER OF A TTORNEY Latest Code [...] Agents on File Name Relationship Healthcare Agent [facility] Communication Luis Troy Adult Child Health Care Age nt (per Health Care Power of Supervisor Nut Processing document) Care Teams Cane Flume Watcher Relationship Specialty Start Date End Date Payam Claire DO [address] [place] [address] PCP - General Family Medicine 09/08/23 documented as of this encounter
--- OUTSIDE RECORDS SUMMARY | 2023-10-11 02:56 | External Medical Summary | Summary of Care ---
Author Name Unknown Organization [facility] Address [address] [place] [address] Phone [phone] Care Team Providers Care Event Representative Name Role Phone ShemarJunaid robles Primary Care Provider [phone] Reason for Visit * Reason Onset Date Comments Advice 09/25/2023 Encounter Details Date Type Department Care Team (Late st Contact Info) Description 09/25/2023 Telephone Urology, [place] [address] [place] [address] Services, [facility] [address] [place] [address] Advice Allergies No known active allergiesdocumented as of this encounter (statuses as of 09/25/2023) Medications Medication Sig Dispensed Refills Start Date End Date Status Nitroglycerin 0.4 MG Sublingual Tablet SublingualIndicati ons:Coronary artery disease involving [place] coronary artery of [place]bler heart without angina pectoris Place 1 Tablet under the tongue every 5 minutes as needed for Pain, Chest. 0 Suspended Lisinopril 5 MG Oral Tablet (PRINIVIL)Indicati ons:Coronary artery disease involving [place] coronary artery of [place] heart without angina pectoris Take 1 Tablet by mouth in the morning. 0 Suspended Apixaban 5 MG Oral TabletIndications: Paroxysmal atrial fibrillation (HCC) Take 1 Tablet by mouth in the morning and 1 Tablet before bedtime. 0 Suspended Clopidogrel Bisulfate 75 MG Oral Tablet (pLAVix)Indication s:Coronary artery disease involving [place] coronary artery of [place] heart without angina pectoris Take 1 Tablet [...] Propionate 50 MCG/ACT Nasal Suspension Administer 1 [place] into nostril in the morning. 0 Suspended Spironolactone 100 MG Oral Tablet (Aldactone) Take 1 Tablet by mouth in the morning. 0 Suspended Metoprolol Succinate ER 25 MG Oral Tablet Extended Release 24 Hour (Toprol XL)Indications:Cor onary artery disease involving [place] coronary artery of [place] heart without angina pectoris Take 1 Tab [...] 120 Tablet 3 08/15/2023 Suspended Additional Information documented as of this encounter (statuses as of 09/25/2023) Active Problems Problem Noted Date Diagnosed Date Dyslipidemia 01/13/2023 History of nonmelanoma skin cancer 12/22/2022 Overview: Hx of BCC R helix s/p Mohs 2021,BCC L shoulder 2021, BCC R posterior neck 2021,NMSC lower lip years ago (no records) Chronic kidney disease, stage 3a 10/14/2022 Overview: Per CKD protocol Ischemic cardiomyopathy 01/31/2021 HTN, goal below 130/80 01/31/2021 History of stroke Coronary artery disease invo lving [place] coronary artery of [place] heart without angina pectoris 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 Explained to him he could ask about the cat scan to the service he is admitted under. I did let him know they may not agree to do the study as an inpt. He was upset and stated "We might cancel the apt for the cat scan and Dr Dorman. It would be a great service to have it done due to the distance" AMINTA Molina 11:57 AM 09/25/2023 * Telephone Encounter - Selin Cooper, AMINTA - 09/25/2023 11:17 AM EDT Please advise. Pt's son is requesting that pt's CT and appt with Dr Dorman both on 10/28 can be completed while pt is currently admitted to the [facility] hospital if this is possible. They are hoping to get these appts completed while he is already there and avoid additional trips in the future. He is expected to be admitted until next week. Please reach out to his son to advise if this is possible. [phone] documented in this encounter Plan of Treatment Upcoming Encounters Date Type Department Care Team (Late st Contact Info) Description 10/09/2023 1:00 PM EST Office Visit Nephrology [address] [place] [address] Gisele Daugherty MD 200 [facility] [place] [address] 10/28/2023 10:30 AM EST Appointment Radiology, [place] [address] [place] [address] 10/28/2023 11:30 AM EST Procedure Only Urology, [place] [address] [place] [address] Garrick Dorman MD [address] [place] [address] 11/18/2023 2:00 PM EST Cardiac Studies Cardiology, [facility] 132 [place] [address] [place], Pacer Clinic [facility] 132 [place] [address] 11/21/2023 1:50 PM EST Office Visit Dermatology [place] 200 [facility] [place] [address] Lavonne Herzog PA-C [address] [facility] [place] [address] 02/24/2024 4:20 PM EDT Office Visit Neurology [facility] 200 [facility] [place], [place] [address] Chicho Steward, DO 200 [facility] [place] [address] 04/16/2024 1:00 PM EDT Office Visit Family Practice [facility] [address] [place] [address] Payam Claire, DO 200 [facility] [place], [place] [address] Health Maintenance Due Date Last Done Comments Albumin/Creatinine Ratio 1958 Zoster Vaccines (2 of 3) 11/08/2013 09/13/2013 CKD PHOS USE SMARTSET 90026 01/08/2017 01/08/2016 Depression Screening 04/11/2022 04/11/2021 COVID-19 Vaccine ( - season) 2023 02/10/2021, 01/02/2021 GFR 03/20/2024 09/19/2023, 08/01, 07/24/2023, Additional history exists CKD HGB USE SMARTSET 22969 09/19/202409/19, 09/19/2023, 06/26/2023, Additional history exists DTaP,Tdap,and Td Vaccines (2 [...] Documents on File Type Date Recorded Patient Novelty Maker Expl anation Power of Disease Education Specialist 11/29/2019 POWER OF A TTORNEY Latest Code Status on File Code Status Date Activated Date Inactivated Comments Full Code 09/25/2023 10:59 AM This ord er reflects the patients wishes and were consensually agreed upon. Question Answer Comments Discussion of Advance Directives occurred with: Patient Care Teams Event Representative Relationship Specialty Start Date End Date Junaid Carey DO [address] [facility] [place] [id number] PCP - General Internal Medicine 09/04/23 documented as of this encounter
--- OUTSIDE RECORDS SUMMARY | 2023-10-11 02:56 | External Medical Summary ---
Author Name Unknown Address Unknown Organization : Laboratory Report Ordering Provider Test Date Status LLUVIA MONTERROSO 09/26/2023 05:35:00 Final Observation Date Value Abnormality Reference (Units ) Status Mycobacterium tuberculosis stimulated gamma interferon [Interpretation] in Blood Qualitative 09/26/2023 05:35:00 NEGATIVE NEGATIVE Final Negative test result. M. tub erculosis complex
infection unlikely. Gamma interferon background [Units/volume] in Blood by Immunoassay 09/26/2023 05:35:00 0.02 (IU/mL) Final Mitogen stimulated gamma int erferon [Units/volume] corrected for background in Blood 09/26/2023 05:35:00 7.40 (IU/mL) Final Mycobacterium tuberculosis s timulated gamma interferon release by CD4+ T-cells [Units/volume] corrected for background in Blood 09/26/2023 05:35:00 0.00 (IU/mL) Final Mycobacterium tuberculosis s timulated gamma interferon release by CD4+ and CD8+ T-cells [Units/volume] corrected for background in Blood 09/26/2023 05:35:00 0.00 (IU/mL) Final The Nil tube value reflects the background [...] T-lymphocytes.
For additional information, please refer to
[email or web address]/faq/[email or web address]
(This link is being provided for information/
educational purposes only.)

Test Performed at:
[facility]
[address] [facility]
[place] [address]
Boy Gomez M.D., Ph.D.,Director of Laboratories Performing Location
--- OUTSIDE RECORDS SUMMARY | 2023-10-11 02:56 | External Medical Summary ---
Author Name Unknown Address Unknown Organization K01:LABORATORY [facility] [place] - [address] [place] [address] Laboratory Report Ordering Provider Test Date Status VAN JENKINS 09/27/2023 05:04:00 Final Warfarin Therapy
INR: 2 .0-3.0 conventional anticoagulation
INR: 2.5- 3.5 high intensity anticoagulation Observation Date Value Abnormality Reference (Units ) Status PT 09/27/2023 05:04:00 14.7 11.6-15.2 (seconds) Final INR 09/27/2023 05:04:00 1.1 0.8-1.2 Final Performing Location LABORATORY [facility] [place] - [address] [place] [address]
--- OUTSIDE RECORDS SUMMARY | 2023-10-11 02:56 | External Medical Summary ---
Author Name Unknown Address Unknown Organization [id number]:LABORATORY [facility] – [place] - [address] [place] [address] Laboratory Report Ordering Provider Test Date Status MELODIE WALTON 09/25/2023 21:35:00 Final Anticoagulation may affect t esting. Refer to [email or web address] Test Catalog for a list of effects. Observation Date Value Abnormality Reference (Units ) Status aPTT panel - Platelet poor plasma 09/25/2023 21:35:00 60 Above high normal 21-38 (seconds) Final Performing Location LABORATORY [facility] – [place] - [address] [place] [address]
--- OUTSIDE RECORDS SUMMARY | 2023-10-11 02:56 | External Medical Summary ---
Author Name Unknown Address Unknown Organization [id number]:LABORATORY [facility] – [place] - [address] [facility] [place] [facility] [address] Laboratory Report Ordering Provider Test Date Status MELODIE WALTON 09/27/2023 05:04:00 Final Get stat/now aPTT [address] each heparin dose adjustment

Anticoagulation may affect testing. Refer to [employer] Test Catalog for a list of effects. Observation Date Value Abnormality Reference (Units ) Status aPTT panel - Platelet poor plasma 09/27/2023 05:04:00 65 Above high normal 21-38 (seconds) Final Performing Location LABORATORY [facility] [place] - [facility] [address] [facility] [place] [address]
--- OUTSIDE RECORDS SUMMARY | 2023-10-11 02:56 | External Medical Summary ---
Author Name Unknown Address Unknown Organization K01:[place] [facility] [place] [address] [place] [address] Laboratory Report Ordering Provider Test Date Status VAN JENKINS 09/27/2023 05:05:00 Final Observation Date Value Abnormality Reference (Units ) Status BUN 09/27/2023 05:05:00 34 Above high normal 6-20 (mg/dL) Final Creatinine 09/27/2023 05:05:00 1.8 Above high normal 0.6-1.2 (mg/dL) Final Glomerular filtration rate/1.73 sq M.predicted [Volume Rate/Area] in Serum, Plasma or Blood by Creatinine-based formula (CKD-EPI) 09/27/2023 05:05:00 36 Below low normal >=60 (mL/min) Final eGFR is calculated based on the CKD-EPI 2020 equation SODIUM 09/27/2023 05:05:00 141 135-146 (m mol/L) Final Potassium 09/27/2023 05:05:00 4.1 3.5-5.1 (m mol/L) Final Cl 09/27/2023 05:05:00 111 Above high normal 98 -107 (mmol/L) Final CO2 09/27/2023 05:05:00 21 Below low normal 22- 32 (mmol/L) Final Anion gap 09/27/2023 05:05:00 9 7-15 (mmol /L) Final Glucose 09/27/2023 05:05:00 92 70-120 (mg /dL) Final Calcium 09/27/2023 05:05:00 8.0 Below low normal 8.4 -10.2 (mg/dL) Final Albumin 09/27/2023 05:05:00 2.9 Below low normal 3.8 -5.0 (g/dL) Final Phosphate 09/27/2023 05:05:00 2.5 2.5-4.8 (m g/dL) Final Performing Location [place] [facility] [place] [address] [place] [address]
--- OUTSIDE RECORDS SUMMARY | 2023-10-11 02:57 | External Medical Summary ---
Author Name Unknown Address Unknown Organization K01:LABORATORY [facility] – [place] - [address] [place] [address] Laboratory Report Ordering Provider Test Date Status VAN JENKINS 09/25/2023 11:45:00 Final Observation Date Value Abnormality Reference (Units ) Status Haptoglobin 09/25/2023 11:45:00 79 30-200 ( mg/dL) Final Performing Location LABORATORY [facility] [place] - [address] [facility] [place] [address]
--- OUTSIDE RECORDS SUMMARY | 2023-10-11 02:57 | External Medical Summary ---
Author Name Unknown Address Unknown Organization [id number]:LABORATORY [facility] – [place] - [address] [place] [address] Laboratory Report Ordering Provider Test Date Status VAN JENKINS 09/25/2023 12:55:00 Final Anticoagulation may affect t esting. Refer to [employer] Test Catalog for a list of effects. Observation Date Value Abnormality Reference (Units ) Status aPTT panel - Platelet poor plasma 09/25/2023 12:55:00 36 21-38 (seconds) Final Performing Location LABORATORY [facility] [place] - [address] [place] [address]
--- OUTSIDE RECORDS SUMMARY | 2023-10-11 02:57 | External Medical Summary | Summary of Care ---
Author Name Unknown Organization [facility] Address [address] [place] [address] Phone [phone] Care Team Providers Care Test Engineering Manager Name Role Phone ShemarJunaid robles Primary Care Provider [phone] Encounter Details Date Type Department Care Team (Late st Contact Info) Description 09/09/2023 Result Scan Unspecified Department Gisele Daugherty MD [address] [place] [address] <No scans attached> Allergies No known active allergiesdocumented as of this encounter (statuses as of 09/23/2023) Medications Medication Sig Dispensed Refills Start Date End Date Status Nitroglycerin 0.4 MG Sublingual Tablet SublingualIndicatio ns: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 0 Active Apixaban 5 MG Oral TabletIndications:P aroxysmal atrial fibrillation (HCC) Take 1 Tablet by mouth in the morning and 1 Tablet before bedtime. 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 0 Active Vitamin D (Cholecalciferol) 50 MCG (1999 UT) Oral Capsule Take by mouth. 0 Active Diclofenac Sodium 1 % Transdermal Gel Place topically on the skin 4 times a day. Apply to to back as needed 0 Active Rosuvastatin Calcium 10 MG Oral Tablet (Crestor) Take 1 Tablet by mouth in the morning. Take one daily at bedtime . 0 Active Fluticasone Propionate 50 MCG/ACT Nasal Suspension Administer 1 Bre[place] into nostril in the morning. 0 Active Spironolactone 100 MG Oral Tablet (Aldactone) Take 1 Tablet by mouth in the morning. 0 Active Metoprolol Succinate ER 25 MG Oral Tablet Extended Release 24 Hour (Toprol XL)Indications:Tony nary artery disease involving atka coronary artery of atka heart without angina pectoris Take 1 Tab by mouth 2 times a day. 180 Tab 3 09/04/2021 Active FLUoxetine HCl 10 MG Oral Tablet (PROzac) Take 1 Tablet by mouth in the morning. 0 Active Ketoconazole 2 % External CreamIndications:Se borrheic dermatitis of scalp Apply behind ears twice daily as needed for flares 30 g 0 07/02/2022 Active Ketoconazole 2 % External Shampoo (Nizoral)Indication s:Seborrheic dermatitis of scalp Apply to scalp and [...] mouth at bedtime as needed. 0 Active Furosemide 40 MG Oral Tablet (Lasix)Indications: Acute on chronic systolic (congestive) heart failure (HCC) Furosemide 60 mg oral daily alteranting 80 mg every other day 120 Tablet 3 08/15/2023 Active documented as of this encounter (statuses as of 09/23/2023) Active Problems Problem Noted Date Diagnosed Date [...] of stroke Coronary artery disease invo lving atka coronary artery of atka heart without angina pectoris Pacemaker AICD (automatic cardioverter/defibrillator) pres ent Permanent atrial fibrillation documented as of this encounter (statuses as of 09/23/2023) Resolved Problems Problem Noted Date Diagnosed Date Resolved Date Dyslipidemia, goal LDL below 70 01/31/2021 01/13/2023 documented as of this encounter (statuses as of 09/23/2023) Immunizations Name Administration Dates Next Due COVID-19 [...] Care Team (Late st Contact Info) Description 09/26/2023 3:30 PM EDT Office Visit Cardiology, [facility] [address] [facility] [place] [address] Melanie Torres CRNP 132 [facility] [place] [address] 10/03/2023 9:20 AM EDT Office Visit Nephrology, [facility] 200 [facility] [place] [address] Cameron Martinez MD [address] [place] [address] [place], [place] [id number] 10/28/2023 10:30 AM EST Appointment Radiology, [place] [address] [place] [phone] 10/28/2023 11:30 AM EST Procedure Only Urology, [place] [address] [place] [address] Garrick Dorman MD [address] [place] [address] 11/18/2023 2:00 PM EST Cardiac Studies Cardiology, [facility] [address] [place] 132 [facility] [place] [address] 11/21/2023 1:50 PM EST Office Visit Dermatology [facility] 200 [facility] [place] [address] Lavonne Herzog PA-C [address] [facility] [place] [address] 02/24/2024 4:20 PM EDT Office Visit Neurology [facility] 200 [facility] [place] [address] Chicho Steward, DO 200 [facility] [place] [address] 04/16/2024 1:00 PM EDT Office Visit Family Practice [facility] [place] [address] [facility] [place] [address] Payam Claire, DO [address] [facility] [place] [address] Health Maintenance Due Date Last Done Comments Albumin/Creatinine Ratio 1957 Zoster Vaccines (1 of 2) 1989 CKD PHOS USE SMARTSET 30352 01/08/2017 01/08/2016 Depression Screening 04/11/2022 04/11/2021 COVID-19 Vaccine ( season) 2023 02/10/2021, 01/02/2021 GFR 03/20/2024 09/19/2023, 08/01, 07/24/2023, Additional history exists CKD HGB USE SMARTSET 43458 09/19/202409/19, 09/19/2023, 06/26/2023, Additional history exists DTaP,Tdap,and [...] Procedure Name Priority Date/Time Associated Diagnosis Comments OUTSIDE LAB RESULTS 09/09/2023 documented in this encounter Results * OUTSIDE LAB RESULTS (09/09/2023) 09/09/2023 Gisele Daugherty MD LABORATORY documented in this encounter Advance Directives Documents on File Type Date Recorded Patient Family Life Counselor Expl anation Power of Loan Representative 11/29/2019 POWER OF A TTORNEY Care Teams Test Engineering Manager Relationship Specialty Start Date End Date Junaid Carey DO [address] [place] [address] PCP - General Internal Medicine 09/04/23 documented as of this encounter
--- OUTSIDE RECORDS SUMMARY | 2023-10-11 02:57 | External Medical Summary ---
Author Name Unknown Address Unknown Organization K01:[place] [facility] [place] [facility] [address] [facility] [address] [facility] [address] Laboratory Report Ordering Provider Test Date Status SONU BUSBY 09/25/2023 11:45:00 Final Observation Date Value Abnormality Reference (Units ) Status WBC, Total 09/25/2023 11:45:00 5.98 4.00-10.80 (K/uL) Final RBC 09/25/2023 11:45:00 2.53 4.50-5.25 (M/uL) Final Hemoglobin 09/25/2023 11:45:00 9.0 Below low normal 14.0-16.8 (g/dL) Final HCT 09/25/2023 11:45:00 28.5 Below low normal 40.0-48.4 (%) Final MCV 09/25/2023 11:45:00 112.6 82.0-99.5 (fL) Final MCH 09/25/2023 11:45:00 35.6 27.0-34.0 (pg) Final MCHC 09/25/2023 11:45:00 31.6 32.0-36.0 (g/dL) Final RDW 09/25/2023 11:45:00 12.9 11.5-15.5 (%) Final Platelets 09/25/2023 11:45:00 95 Below low normal 140-400 (K/uL) Final MPV 09/25/2023 11:45:00 10.9 6.6-11.1 (fL) Final Nucleated erythrocytes/100 leukocytes [Ratio] in Blood by Automated count 09/25/2023 11:45:00 0 <=0 (/100 WBCs) Final Performing Location LABORATORY [facility] [place] [address] [place] [address]
--- OUTSIDE RECORDS SUMMARY | 2023-10-11 02:57 | External Medical Summary ---
Author Name Unknown Address Unknown Organization K01:LAB[place]ATORY [facility] [place] [address] [place] [address] Laboratory Report Ordering Provider Test Date Status VAN JENKINS 09/25/2023 11:45:00 Final Observation Date Value Abnormality Reference (Units ) Status IgG 09/25/2023 11:45:00 515 Below low normal 700 -1600 (mg/dL) Final IgA 09/25/2023 11:45:00 141 70-400 (mg /dL) Final IgM 09/25/2023 11:45:00 36 Below low normal 40- 230 (mg/dL) Final Performing Location LABORATORY [facility] [place] [address] [place] [address]
--- OUTSIDE RECORDS SUMMARY | 2023-10-11 02:57 | External Medical Summary ---
Author Name Unknown Address Unknown Organization K01:LAB[place]ATORY [facility] [place] [address] [facility] [address] Laboratory Report Ordering Provider Test Date Status VAN JENKINS 09/25/2023 12:55:00 Final Observation Date Value Abnormality Reference (Units ) Status Heparin, unfractionated level 09/25/2023 12:55:00 0.52 Above high normal <0.10 (IU/mL) Final Unfractionated therapeutic r anges for Anti Xa activity:
For Cardiac/Neurologic treatment: 0.3 to 0.6 IU/mL.
For treatment of DVT or Pulmonary Embolism: 0.3 to 0.7 IU/mL. Performing Location LABORATORY [facility] [place] - [address] [facility] [address]
--- OUTSIDE RECORDS SUMMARY | 2023-10-11 02:57 | External Medical Summary | Summary of Care ---
Author Name Unknown Organization [facility] Address [address] [facility] [address] Phone [phone] Care Team Providers Care Commercial Real Estate Sales Manager Name Role Phone Cherry Junaid STEINBERG Primary Care Provider [phone] Encounter Details Date Type Department Care Team (Late st Contact Info) Description 09/05/2023 Result Scan Unspecified Department Rito Castrejon PA-C [address] [place] [address] <No scans attached> Allergies No known active allergiesdocumented as of this encounter (statuses as of 09/23/2023) Medications Medication Sig Dispensed Refills Start Date End Date Status Nitroglycerin 0.4 MG Sublingual Tablet SublingualIndicatio ns:Coronary artery disease involving lime coronary artery of lime heart without angina pectoris Place 1 Tablet under the tongue every 5 minutes as needed for Pain, Chest. 0 Active Lisinopril 5 MG Oral Tablet (PRINIVIL)Indicatio ns:Coronary artery disease involving lime coronary artery of lime heart without angina pectoris Take 1 Tablet by mouth in the morning. 0 Active Apixaban 5 MG Oral TabletIndications:P aroxysmal atrial fibrillation (HCC) Take 1 Tablet by mouth in the morning and 1 Tablet before bedtime. 0 Active Clopidogrel Bisulfate 75 MG Oral Tablet (pLAVix)Indications :Coronary artery disease involving lime coronary artery of lime heart without angina pectoris Take 1 Tablet [...] Propionate 50 MCG/ACT Nasal Suspension Administer 1 [place] into nostril in the morning. 0 Active Spironolactone 100 MG Oral Tablet (Aldactone) Take 1 Tablet by mouth in the morning. 0 Active Metoprolol Succinate ER 25 MG Oral Tablet Extended Release 24 Hour (Toprol XL)Indications:Tony nary artery disease involving lime coronary artery of lime heart without angina pectoris Take 1 Tab [...] of stroke Coronary artery disease invo lving lime coronary artery of lime heart without angina pectoris Pacemaker AICD (automatic [...] 09/26/2023 3:30 PM EDT Office Visit Cardiology, [facility] 132 [facility] [place] [address] Melanie Torres CRNP 132 [facility] [place] [address] 10/03/2023 9:20 AM EDT Office Visit Nephrology, [address] [place] [address] Cameron Martinez MD [address] [place] [address] 10/28/2023 10:30 AM EST Appointment Radiology, [facility] [address] [place] [address] 10/28/2023 11:30 AM EST Procedure Only Urology, [facility] [address] [place], [place] [address] Garrick Dorman MD [address] [place] [address] 11/18/2023 2:00 PM EST Cardiac Studies Cardiology, [facility] 132 [facility] [place] [address] [place], [facility] 132 [facility] [place] [address] 11/21/2023 1:50 PM EST Office Visit Dermatology [facility] [address] [place] [address] Lavonne Herzog PA-C [address] [facility] [place] [address] 02/24/2024 4:20 PM EDT Office Visit Neurology [facility] 200 [facility] [place], [place] [address] Chicho Steward, DO 200 [facility] [place] [address] 04/16/2024 1:00 PM EDT Office Visit Family Practice [facility] [place] 200 [facility] [place] [address] Payam Claire, DO 200 [facility] [place] [address] Health Maintenance Due Date Last Done Comments Albumin/Creatinine Ratio 1957 Zoster Vaccines (1 of 2) 1989 CKD PHOS USE SMARTSET 13596 01/08/2017 01/08/2016 Depression Screening 04/11/2022 04/11/2021 COVID-19 Vaccine ( season) 2023 02/10/2021, 01/02/2021 GFR 03/20/2024 09/19/2023, 08/01, 07/24/2023, Additional history exists CKD HGB USE SMARTSET 08461 09/19/202409/19, 09/19/2023, 06/26/2023, Additional history exists DTaP,Tdap,and [...] Date/Time Associated Diagnosis Comments OUTSIDE LAB RESULTS 09/05/2023 documented in this encounter Results * OUTSIDE LAB RESULTS (09/05/2023) 09/05/2023 Rito Nicolle [facility] documented in this encounter Advance Directives Documents on File Type Date Recorded Patient Salesperson Wigs Expl anation Power of Glass Etcher Helper 11/29/2019 POWER OF A TTORNEY Care Teams Commercial Real Estate Sales Manager Relationship Specialty Start Date End Date Junaid Carey DO [address] [place] [address] PCP - General Internal Medicine 09/04/23 documented as of this encounter
--- OUTSIDE RECORDS SUMMARY | 2023-10-11 02:57 | External Medical Summary | Summary of Care ---
Author Name Unknown Organization [facility] Address [address] [place] [address] Phone [phone] Care Team Providers Care Tower Erector Name Role Phone ShemarJunaid robles Primary Care Provider [phone] Encounter Details Date Type Department Care Team (Late st Contact Info) Description 09/22/2023 Telephone NephrologyMaikel 200 [place] [address] Gisele Daugherty MD [address] [place] [address] Allergies No known active allergiesdocumented as of this encounter (statuses as of 09/23/2023) Medications Medication Sig Dispensed Refills Start Date End Date Status Nitroglycerin 0.4 MG Sublingual Tablet SublingualIndicatio ns:Coronary artery disease involving port lions coronary artery of port lions heart without angina pectoris Place 1 Tablet under the tongue every 5 minutes as needed for Pain, Chest. 0 Active Lisinopril 5 MG Oral Tablet (PRINIVIL)Indicatio ns:Coronary artery disease involving port lions coronary artery of port lions heart without angina pectoris Take 1 Tablet by mouth in the morning. 0 Active Apixaban 5 MG Oral TabletIndications:P aroxysmal atrial fibrillation (HCC) Take 1 Tablet by mouth in the morning and 1 Tablet before bedtime. 0 Active Clopidogrel Bisulfate 75 MG Oral Tablet (pLAVix)Indications :Coronary artery disease involving port lions coronary artery of port lions heart without angina pectoris Take 1 Tablet [...] Propionate 50 MCG/ACT Nasal Suspension Administer 1 [place] into nostril in the morning. 0 Active Spironolactone 100 MG Oral Tablet (Aldactone) Take 1 Tablet by mouth in the morning. 0 Active Metoprolol Succinate ER 25 MG Oral Tablet Extended Release 24 Hour (Toprol XL)Indications:Tony nary artery disease involving port lions coronary artery of port lions heart without angina pectoris Take 1 Tab [...] of stroke Coronary artery disease invo lving port lions coronary artery of port lions heart without angina pectoris Pacemaker AICD (automatic [...] on file documented as of this encounter Miscellaneous Notes * Telephone Encounter - Gisele Daugherty MD - 09/22/2023 4:40 PM EDT Pt seen in [facility] for nephrotic syndrome as renal c/s and w/ PMH of vascular dementia, HFpEF, permanent a fib on AC, CAD, CKD3. Proteinuria w/u sent > found to have (on [facility] send out labs) -11 gm proteinuria. 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 Called and spoke to son Luis updating on above. Son states all things considered father doing well, cont to lose wt since hospital d/c. Updated son of following -pt may need to be evaluated for nonemergent renal bx; risks and indications for renal bx reviewed w/ pt's son; biopsy would be challenging, may need IP admission d/t atrial fib and AC; pt needs to come in person for f/u appt -I will ask heme for comment (ask a doc verusu referral) of clinical meaning if any of elevated monoclonal gammopathy; ask a doc sent 21 min on phone documented in this encounter Plan of Treatment Upcoming Encounters Date Type Department Care Team (Late st Contact Info) Description 09/26/2023 3:30 PM EDT Office Visit Cardiology, [facility] [address] [place] [address] Melanie Torres CRNP [address] [place] [address] 10/03/2023 9:20 AM EDT Office Visit Nephrology, [facility] [address] [place] [address] Cameron Martinez MD [address] [place] [address] 10/28/2023 10:30 AM EST Appointment Radiology, [address] [phone] 10/28/2023 11:30 AM EST Procedure Only Urology, [place] [address] [place], [place] [id number] Garrick Dorman MD Formerly named [facility] [address] [place], [place] [id number] 11/18/2023 2:00 PM EST Cardiac Studies Cardiology, [facility] [address] [place] [address] [facility] [address] [place] [address] 11/21/2023 1:50 PM EST Office Visit Dermatology [facility] [address] [place] [address] Lavonne Herzog PA-Kristen [address] [place] [address] 02/24/2024 4:20 PM EDT Office Visit Neurology [facility] [address] [place] [address] [address] Chicho Steward, DO [address] [place] [address] 04/16/2024 1:00 PM EDT Office Visit Family Practice [facility] [address] [place] [address] Payam Claire, DO [address] [place] [address] Health Maintenance Due Date Last Done Comments Albumin/Creatinine Ratio 1957 Zoster Vaccines (1 of 2) 1989 CKD PHOS USE SMARTSET 99340 01/08/2017 01/08/2016 Depression Screening 04/11/2022 04/11/2021 COVID-19 Vaccine (3 - season) 2023 02/10/2021, 01/02/2021 GFR 03/20/2024 09/19/2023, 08/01, 07/24/2023, Additional history exists CKD HGB USE SMARTSET 74778 09/19/202409/19, 09/19/2023, 06/26/2023, Additional history exists DTaP,Tdap,and [...] Documents on File Type Date Recorded Patient Oncology Specialist Expl anation Power of Social Work Case Manager 11/29/2019 POWER OF A TTORNEY Care Teams Tower Erector Relationship Specialty Start Date End Date Junaid Carey DO [address] [place], [place] [address] [address] PCP - General Internal Medicine 09/04/23 documented as of this encounter
--- OUTSIDE RECORDS SUMMARY | 2023-10-11 02:57 | External Medical Summary ---
Author Name Unknown Address Unknown Organization K01:LABORATORY [facility] - [address] [place] [address] Laboratory Report Ordering Provider Test Date Status SONU BUSBY 09/25/2023 11:45:00 Final Observation Date Value Abnormality Reference (Units ) Status Magnesium 09/25/2023 11:45:00 2.6 1.5-2.6 (m g/dL) Final Performing Location LABORATORY [facility] - [address] [place] [address]
--- OUTSIDE RECORDS SUMMARY | 2023-10-11 02:57 | External Medical Summary | Summary of Care ---
Author Name Unknown Organization [facility] Address [address] [place] [address] Phone [phone] Care Team Providers Care Principal Scientist Name Role Phone ShemarJunaid robles Primary Care Provider [phone] Encounter Details Date Type Department Care Team (Late st Contact Info) Description 09/22/2023 Telephone NephrologyMaikel 200 [facility] [place] [address] Gisele Daugherty MD 200 [place] [address] Allergies No known active allergiesdocumented as of this encounter (statuses as of 09/23/2023) Medications Medication Sig Dispensed Refills Start Date End Date Status Nitroglycerin 0.4 MG Sublingual Tablet SublingualIndicatio ns:Coronary artery disease involving tolowa dee-ni' coronary artery of tolowa dee-ni' heart without angina pectoris Place 1 Tablet under the tongue every 5 minutes as needed for Pain, Chest. 0 Active Lisinopril 5 MG Oral Tablet (PRINIVIL)Indicatio ns:Coronary artery disease involving tolowa dee-ni' coronary artery of tolowa dee-ni' heart without angina pectoris Take 1 Tablet by mouth in the morning. 0 Active Apixaban 5 MG Oral TabletIndications:P aroxysmal atrial fibrillation (HCC) Take 1 Tablet by mouth in the morning and 1 Tablet before bedtime. 0 Active Clopidogrel Bisulfate 75 MG Oral Tablet (pLAVix)Indications :Coronary artery disease involving tolowa dee-ni' coronary artery of tolowa dee-ni' heart without angina pectoris Take 1 Tablet [...] Propionate 50 MCG/ACT Nasal Suspension Administer 1 Shock into nostril in the morning. 0 Active Spironolactone 100 MG Oral Tablet (Aldactone) Take 1 Tablet by mouth in the morning. 0 Active Metoprolol Succinate ER 25 MG Oral Tablet Extended Release 24 Hour (Toprol XL)Indications:Tony nary artery disease involving tolowa dee-ni' coronary artery of tolowa dee-ni' heart without angina pectoris Take 1 Tab [...] of stroke Coronary artery disease invo lving tolowa dee-ni' coronary artery of tolowa dee-ni' heart without angina pectoris Pacemaker AICD (automatic [...] 09/22/2023 4:40 PM EDT Pt seen in [facility] for nephrotic syndrome as renal c/s and w/ PMH of vascular dementia, HFpEF, permanent a fib on AC, CAD, CKD3. Proteinuria w/u sent > found to have (on [facility] send out labs) -11 gm proteinuria. 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 -Also with elevated beta 2 microglobulin and w/ an IgG kappa monoclonal band present in urine studies w/ elevated free light chain ratio of 2.8 and total Free [place] light chains 119, Free lambda light chains [...] 09/26/2023 3:30 PM EDT Office Visit Cardiology, [facility] [address] [place] [address] Melanie Torres CRNP [address] [place] [address] 10/03/2023 9:20 AM EDT Office Visit Nephrology, [facility] [address] [place] [address] Cameron Martinez MD [address] [place] [address] 10/28/2023 10:30 AM EST Appointment Radiology, [address] [phone] 10/28/2023 11:30 AM EST Procedure Only Urology, [place] [address] [place], [place] [id number] Garrick Dorman MD [facility] [address] [place], [place] [id number] 11/18/2023 2:00 PM EST Cardiac Studies Cardiology, [facility] [address] [place] [address] [facility] [address] [place] [address] 11/21/2023 1:50 PM EST Office Visit Dermatology [facility] [address] [place] [address] Lavonne Herzog PA-Kristen [address] [place] [address] 02/24/2024 4:20 PM EDT Office Visit Neurology [facility] [address] [place] [address] Chicho Steward, DO [address] [place] [address] 04/16/2024 1:00 PM EDT Office Visit Family Practice [facility] [address] [place] [address] Payam Claire, DO [address] [place] [address] Health Maintenance Due Date Last Done Comments Albumin/Creatinine Ratio 1958 Zoster Vaccines (1 of 2) 1989 CKD PHOS USE SMARTSET 93003 01/08/2017 01/08/2016 Depression Screening 04/11/2022 04/11/2021 COVID-19 Vaccine (3 - season) 2023 02/10/2021, 01/02/2021 GFR 03/20/2024 09/19/2023, 08/01, 07/24/2023, Additional history exists CKD HGB USE SMARTSET 59653 09/19/202409/19, 09/19/2023, 06/26/2023, Additional history exists DTaP,Tdap,and [...] Documents on File Type Date Recorded Patient Racking Machine Operator Expl anation Power of Processing Inspector 11/29/2019 POWER OF A TTORNEY Care Teams Principal Scientist Relationship Specialty Start Date End Date Junaid Carey DO [address] [place], [place] [address] PCP - General Internal Medicine 09/04/23 documented as of this encounter
--- OUTSIDE RECORDS SUMMARY | 2023-10-11 02:57 | External Medical Summary ---
Author Name Unknown Address Unknown Organization [id number]:[facility] [place] [address] [place] [place] [address] Laboratory Report Ordering Provider Test Date Status SONU BUSBY 09/25/2023 11:45:00 Final Observation Date Value Abnormality Reference (Units ) Status BUN 09/25/2023 11:45:00 28 Above high normal 6-20 (mg/dL) Final Creatinine 09/25/2023 11:45:00 1.4 Above high normal 0.6-1.2 (mg/dL) Final Glomerular filtration rate/1.73 sq M.predicted [Volume Rate/Area] in Serum, Plasma or Blood by Creatinine-based formula (CKD-EPI) 09/25/2023 11:45:00 50 Below low normal >=60 (mL/min) Final eGFR is calculated based on the CKD-EPI 2020 equation SODIUM 09/25/2023 11:45:00 142 135-146 (m mol/L) Final Potassium 09/25/2023 11:45:00 3.8 3.5-5.1 (m mol/L) Final Cl 09/25/2023 11:45:00 109 Above high normal 98 -107 (mmol/L) Final CO2 09/25/2023 11:45:00 24 22-32 (mmo l/L) Final Anion gap 09/25/2023 11:45:00 9 7-15 (mmol /L) Final Glucose 09/25/2023 11:45:00 95 70-120 (mg /dL) Final Albumin 09/25/2023 11:45:00 3.4 Below low normal 3.8 -5.0 (g/dL) Final AST (Aspartate aminotransferase) 09/25/2023 11:45:00 28 10-50 (U/L) Fin al Alk Phos 09/25/2023 11:45:00 79 35-130 (U/ L) Final Bilirubin, Total 09/25/2023 11:45:00 0.6 <=1 .2 (mg/dL) Final Calcium 09/25/2023 11:45:00 8.7 8.4-10.2 ( mg/dL) Final Protein 09/25/2023 11:45:00 5.1 Below low normal 6.0 -8.3 (g/dL) Final ALT (Alanine aminotransferase) 09/25/2023 11:45:00 19 10-50 (U/L) Magdaleno johnson Performing Location [facility] [place] [address] [facility] [address]
--- OUTSIDE RECORDS SUMMARY | 2023-10-11 02:57 | External Medical Summary ---
Author Name Unknown Address Unknown Organization [id number]:[facility] - [address] [place] [address] Laboratory Report Ordering Provider Test Date Status SONU BUSBY 09/25/2023 11:45:00 Final Observation Date Value Abnormality Reference (Units ) Status Phosphate 09/25/2023 11:45:00 2.7 2.5-4.8 (m g/dL) Final Performing Location [facility] - [address] [place] [address]
--- OUTSIDE RECORDS SUMMARY | 2023-10-11 02:57 | External Medical Summary ---
Author Name Unknown Address Unknown Organization [id number]:[facility] [place] [address] [place] [address] Laboratory Report Ordering Provider Test Date Status VAN JENKINS 09/25/2023 12:55:00 Final Warfarin Therapy
INR: 2 .0-3.0 conventional anticoagulation
INR: 2.5- 3.5 high intensity anticoagulation Observation Date Value Abnormality Reference (Units ) Status PT 09/25/2023 12:55:00 14.8 11.6-15.2 (seconds) Final INR 09/25/2023 12:55:00 1.1 0.8-1.2 Final Performing Location [facility] - [address] [place] [address]
--- OUTSIDE RECORDS SUMMARY | 2023-10-11 02:58 | External Medical Summary ---
Author Name Unknown Address Unknown Organization [id number]:[facility] - [address] [place] [address] Laboratory Report Ordering Provider Test Date Status INNA UNDERWOOD 09/19/2023 14:24:12 Final Observation Date Value Abnormality Reference (Units ) Status WBC, Total 09/19/2023 14:24:12 6.88 4.00-10.8 0 (K/uL) Final RBC 09/19/2023 14:24:12 2.99 4.50-5.25 (M/uL) Final Hemoglobin 09/19/2023 14:24:12 10.8 Below low normal 14 .0-16.8 (g/dL) Final Anemia reflex testing trigge rs on a HGB < 12.0 for Females and HGB < 13.0 for Males in accordance with the WHO Anemia Guidelines HCT 09/19/2023 14:24:12 34.0 Below low normal 40. 0-48.4 (%) Final MCV 09/19/2023 14:24:12 113.7 82.0-99.5 (fL) Final MCH 09/19/2023 14:24:12 36.1 27.0-34.0 (pg) Final MCHC 09/19/2023 14:24:12 31.8 32.0-36.0 (g/dL) Final RDW 09/19/2023 14:24:12 13.2 11.5-15.5 (%) Final Platelets 09/19/2023 14:24:12 106 Below low normal 140 -400 (K/uL) Final MPV 09/19/2023 14:24:12 10.9 6.6-11.1 ( fL) Final Nucleated erythrocytes/100 leukocytes [Ratio] in Blood by Automated count 09/19/2023 14:24:12 0 <=0 (/100 WBCs) Fi nal Performing Location [facility] - [address] [place] [address]
--- OUTSIDE RECORDS SUMMARY | 2023-10-11 02:58 | External Medical Summary | Summary of Care ---
Author Name Unknown Organization [facility] Address [address] [place] [address] Phone [phone] Care Team Providers Care Cork Insulation Setter Name Role Phone ShemarJunaid robles Primary Care Provider [phone] Reason for Visit * Reason Onset Date Comments Advice 09/04/2023 Encounter Details Date Type Department Care Team Description 09/04/2023 Telephone Cardiology, [facility] [address] [facility] [place] [address] Deondre Cat MD [address] [facility] [place] [address] Advice Allergies No known active allergiesdocumented as of this encounter (statuses as of 09/04/2023) Medications Medication Sig Dispensed Refills Start Date End Date Status Nitroglycerin 0.4 MG Sublingual Tablet SublingualIndicatio ns:Coronary artery disease involving yocha dehe coronary artery of yocha dehe heart without angina pectoris Place 1 Tablet under the tongue every 5 minutes as needed for Pain, Chest. 0 Active Lisinopril 5 MG Oral Tablet (PRINIVIL)Indicatio ns:Coronary artery disease involving yocha dehe coronary artery of yocha dehe heart without angina pectoris Take 1 Tablet by mouth in the morning. 0 Active Apixaban 5 MG Oral TabletIndications:P aroxysmal atrial fibrillation (HCC) Take 1 Tablet by mouth in the morning and 1 Tablet before bedtime. 0 Active Clopidogrel Bisulfate 75 MG Oral Tablet (pLAVix)Indications :Coronary artery disease involving yocha dehe coronary artery of yocha dehe heart without angina pectoris Take 1 Tablet [...] Propionate 50 MCG/ACT Nasal Suspension Administer 1 [place] into nostril in the morning. 0 Active Spironolactone 100 MG Oral Tablet (Aldactone) Take 1 Tablet by mouth in the morning. 0 Active Metoprolol Succinate ER 25 MG Oral Tablet Extended Release 24 Hour (Toprol XL)Indications:Tony nary artery disease involving yocha dehe coronary artery of yocha dehe heart without angina pectoris Take 1 Tab [...] as of this encounter (statuses as of 09/04/2023) Active Problems Problem Noted Date Dyslipidemia 01/13/2023 History of nonmelanoma skin cancer 12/22 Overview: Hx of BCC R helix s/p Mohs 2021,BCC L shoulder 2021, BCC R posterior neck 2021,NMSC lower lip years ago (no records) Chronic kidney disease, stage 3a 022 Overview: Per CKD protocol Ischemic cardiomyopathy 01/31/2021 HTN, goal below 130/80 01/31/2021 History of stroke Coronary artery disease invo lving yocha dehe coronary artery of yocha dehe heart without angina pectoris Pacemaker AICD (automatic cardioverter/defibrillat or) present Permanent atrial fibrillation documented as of this encounter (statuses as of 09/04/2023) Resolved Problems Problem Noted Date Resolved Date Dyslipidemia, goal LDL below 70 01/31/2021 01/13/2023 documented as of this encounter (statuses as of 09/04/2023) Immunizations Name Administration Dates Next Due COVID-19 mRNA, LNP-s, No Pre serve, 2-Dose Series (Moderna) 02/10/2021,01/02/2021 Pneumococcal Conjugate Vacc, 13 Valent (Prevnar) 10/01/2019 Pneumococcal Polysaccharide PPV23 (Pneumovax) 08/13/2013 Seasonal Influenza Virus Vac cine, Unspecified Formulation 09/07/2020,10/01/2019,09/29/2018,09/17 Seasonal Influenza, Trivalen t, Adjuvanted, 65+ yrs 09/19/2022 TDAP (age 10 and older)(Boostrix) 10/10/2020 documented as of this encounter Social History Tobacco Use Types Packs/Day Years Used Date Smoking Tobacco: Never Smokeless Tobacco: Never Alcohol Use Standard Drinks/Week Comments Never 0 (1 standard drink = 0.6 oz pur e alcohol) Alcohol Habits Answer Date Recorded How often do you have a drink containing alcohol ? Never 10/10/2020 How many drinks containing a lcohol do you have on a typical day when you are drinking? Not asked How often do you have six or more drinks on one occasion? Not asked Food Insecurity Answer Date Recorded Within the past 12 months, y ou worried that your food would run out before you got money to buy more. Never true 04/11/2021 Within the past 12 months, t he food you bought just didn't last and you didn't have money to get more. Never true 04/11/2021 Sex Assigned at Date Recorded Not on file Job Start Date Occupation Industry Not on file Not on file Not on file documented as of this encounter Miscellaneous Notes * Telephone Encounter - Deondre Cat MD - 09/04/2023 3:15 PM EDT Discussed patient's case with ER recommended hospitalization. Inpatient cardiology service contacted Component of systolic heart failure and renal insufficiency possible nephrotic syndrome * Telephone Encounter - AMINTA Holley - 09/04/2023 2:43 PM EDT Good Afternoon Patients son called in regards to patient retaining fluid. Son is very upset that hospital let his father leave the ER with elevated troponin levels. Son is taking patient back to the ER. Please advice Thank you AMINTA Holley documented in this encounter Plan of Treatment Upcoming Encounters Date Type Specialty Care Team Description 09/26/2023 Office Visit Cardiology Melanie Torres CRNP [address] [place] [address] 10/28/2023 Appointment Radiology 10/28/2023 Procedure Only Urology Garrick Dorman MD [address] [place] [facility] [place] [address] 11/18/2023 Cardiac Studies Cardiology [facility], Pacer [facility] [address] [place] [address] 11/21/2023 Office Visit Dermatology Lavonne Herzog PA-C [address] [facility] [place] [address] 02/24/2024 Office Visit Neurology Chicho Steward, DO [address] [facility] [address] Health Maintenance Due Date Last Done Comments Albumin/Creatinine Ratio 1957 Zoster Vaccines (1 of 2) 1989 CKD PHOS USE SMARTSET 27477 01/08/2017 01/08/2016 Depression Screening 04/11/2022 04/11/2021 COVID-19 Vaccine (3 - season) 2023 02/10/2021, 01/02/2021 Influenza Vaccine (FLU shot) (#1) 2023 09/19/2022, 09/07/2020, 10/01/2019, Additional history exists GFR 02/13/2024 08/15/2023, 07/02, 07/03/2023, Additional history exists CKD HGB USE SMARTSET 63295 06/26/202406/26, 06/26/2023, 10/11/2022, Additional history exists DTaP,Tdap,and Td Vaccines (2 - Td or Tdap) 10/10/2030 10/10/2020 Pneumococcal Vaccine: 65+ Years Completed 10/01/2019, 08/13/2013 GARDASIL-HPV IMMUNIZATION SERIES Aged Out No longer [...] Documents on File Type Date Recorded Patient Operator Helper Expl anation Power of Mechanic Insulator 11/29/2019 POWER OF A TTORNEY Care Teams Cork Insulation Setter Relationship Specialty Start Date End Date Junaid Carey DO [address] [address] PCP - General Internal Medicine 09/04/23 documented as of this encounter
--- OUTSIDE RECORDS SUMMARY | 2023-10-11 02:58 | External Medical Summary ---
Author Name Unknown Address Unknown Organization K01:LAB[facility]ATORY [facility] [place] - [address] [place] [address] Laboratory Report Ordering Provider Test Date Status NINA UNDERWOOD 09/19/2023 14:24:12 Final Observation Date Value Abnormality Reference (Units ) Status Vitamin B12 09/19/2023 14:24:12 [phone] (pg/mL) Final Performing Location LABORATORY [facility] - [address] [place] [address]
--- OUTSIDE RECORDS SUMMARY | 2023-10-11 02:58 | External Medical Summary ---
Author Name Unknown Address Unknown Organization K01:[facility]ATORY [place] - [address] [facility] [address] Laboratory Report Ordering Provider Test Date Status YASMINENINA 09/19/2023 14:24:12 Final Observation Date Value Abnormality Reference (Units ) Status SYNC LEUKOCYTES IN BLOOD BY AUTOMATED COUNT 09/19/2023 14:24:12 6.88 4.00-10.80 (K/uL) Final Segs 09/19/2023 14:24:12 61.1 40.0-75.0 (%) Final Lymphs % 09/19/2023 14:24:12 19.5 18.0-42.0 (%) Final Monos 09/19/2023 14:24:12 10.8 1.0-11.0 (%) Final Eosinophils 09/19/2023 14:24:12 6.7 Above high normal 0.0-6.0 (%) Final Basos 09/19/2023 14:24:12 1.3 0.0-2.0 (%) Final Immature Granulocyte, Percent 09/19/2023 14:24:12 0.6 0.0-2.0 (%) Final Absolute Segs 09/19/2023 14:24:12 4.21 1.80-7.70 (K/uL) Final Lymphs, absolute 09/19/2023 14:24:12 1.34 1.00-4.80 (K/ul) Final Monos, Abs 09/19/2023 14:24:12 0.74 0.00-1.10 (K/uL) Final Eos, Abs 09/19/2023 14:24:12 0.46 0.00-0.70 (K/uL) Final Basos, Abs 09/19/2023 14:24:12 0.09 0.00-0.20 (K/uL) Final Immature Granulocytes, Number 09/19/2023 14:24:12 0.04 0.00-0.20 (K/uL) Final Performing Location LABORATORY [place] - [address] [facility] [address]
--- OUTSIDE RECORDS SUMMARY | 2023-10-11 02:58 | External Medical Summary | Summary of Care ---
Author Name Unknown Organization [facility] Address [address] [place] [address] Phone [phone] Care Team Providers Care Auto Dealership Porter Name Role Phone TaePayam mckoy Primary Care Provider [phone] Reason for Visit * Reason Onset Date Comments Fax 08/14/2023 Encounter Details Date Type Department Care Team Description 08/14/2023 Telephone Urology, [place] [address] [place] [address] Maddy Paris PA-C [address] [place] [address] Fax Allergies No known active allergiesdocumented as of this encounter (statuses as of 08/15/2023) Medications Medication Sig Dispensed Refills Start Date End Date Status Nitroglycerin 0.4 MG Sublingual Tablet SublingualIndicati ons:Coronary artery disease involving cantwell coronary artery of cantwell heart without angina pectoris Place 1 Tablet under the tongue every 5 minutes as needed for Pain, Chest. 0 Active Lisinopril 5 MG Oral Tablet (PRINIVIL)Indicati ons:Coronary artery disease involving [place]well coronary artery of cantwell heart without angina pectoris Take 1 Tablet by mouth in the morning. 0 Active Apixaban 5 MG Oral TabletIndications: Paroxysmal atrial fibrillation (HCC) Take 1 Tablet by mouth in the morning and 1 Tablet before bedtime. 0 Active Clopidogrel Bisulfate 75 MG Oral Tablet (pLAVix)Indication s:Coronary artery disease involving [place]well coronary artery of cantwell heart without angina pectoris Take 1 Tablet [...] Propionate 50 MCG/ACT Nasal Suspension Administer 1 [place] into nostril in the morning. 0 Active Spironolactone 100 MG Oral Tablet (Aldactone) Take 1 Tablet by mouth in the morning. 0 Active Metoprolol Succinate ER 25 MG Oral Tablet Extended Release 24 Hour (Toprol XL)Indications:Cor onary artery disease involving [place]well coronary artery of cantwell heart without angina pectoris Take 1 Tab by mouth 2 times a day. 180 Tab 3 09/04/2021 Active FLUoxetine HCl 10 MG Oral Tablet (PROzac) Take 1 Tablet by mouth in the morning. 0 Active Ketoconazole 2 % External CreamIndications:S eborrheic dermatitis of scalp Apply behind ears twice daily as needed for flares 30 g 0 07/02/2022 Active Ketoconazole 2 % External Shampoo (Nizoral)Indicatio ns:Seborrheic [...] 0 Active Furosemide 40 MG Oral Tablet (Lasix)Indications :Acute on chronic systolic (congestive) heart failure (HCC) Furosemide 60 mg oral daily with 80 mg one day per week. 0 08/01/2023 08/15/2023 Discontinued (Refill) documented as of this encounter (statuses as of 08/15/2023) Active Problems Problem Noted Date Dyslipidemia 01/13/2023 History of nonmelanoma skin cancer 12/22 Overview: Hx of BCC R helix s/p Mohs 2021,BCC L shoulder 2021, BCC R posterior neck 2021,NMSC lower lip years ago (no records) Chronic kidney disease, stage 3a 022 Overview: Per CKD protocol Ischemic cardiomyopathy 01/31/2021 HTN, goal below 130/80 01/31/2021 History of stroke Coronary artery disease invo lving [place]well coronary artery of cantwell heart without angina pectoris Pacemaker AICD (automatic cardioverter/defibrillat or) present Permanent atrial fibrillation documented as of this encounter (statuses as of 08/15/2023) Resolved Problems Problem Noted Date Resolved Date Dyslipidemia, goal LDL below 70 01/31/2021 01/13/2023 documented as of this encounter (statuses as of 08/15/2023) Immunizations Name Administration Dates Next Due COVID-19 [...] encounter Miscellaneous Notes * Telephone Encounter - Maddy Paris PA-C - 08/15/2023 8:45 AM EDT Attempted to call patient's son Luis 08/15/2023 8:45 AM , unable to complete call, per batch and furnace operator "call could not be completed at this time] Called celebration cristel at [facility] 08/15/2023 8:47 AM spoke with nursing, gracie let her know Leonidas's urine culture is negative, but his microscopic urinalysis showed 50+ RBCs, he will need a microscopic hematuria workup, placed orders for CT urogram with cystoscopy, will forward to office staff to schedule. I let Gracie know I attempted to call patient's son Luis, she informed me Luis is currently in [place]. Received contact information for patient's daughter Sammi [phone] and son Navdeep [phone] Attempted to call patient's son Navdeep, number is not in service, Called patient's daughter Sammi and left message let her know that Leonidas has blood in his urine and we need to complete a work up for the microscopic hematuria with a CT urogram prior to cystoscopy. She can call our office if she has any questions. Maddy Paris PA-C 08/15/2023 8:59 AM * Telephone Encounter - AMINTA Dorman - 08/14/2023 2:22 PM EDT Radha is asking for copy of pt's results for Urine cultures done on 08/12/23 faxed to [phone]. documented in this encounter Plan of Treatment Upcoming Encounters Date Type Specialty Care Team Description 09/26/2023 Office Visit Cardiology Melanie Torres CRNP [address] [place] [address] 10/28/2023 Appointment Radiology 10/28/2023 Procedure Only Urology Garrick Dorman MD [address] [place] [address] 11/18/2023 Cardiac Studies Cardiology [facility], Pacer [facility] [address] [place] [address] 11/21/2023 Office Visit Dermatology Lav[place] Herzog [facility]-C [address] [facility] [address] 02/24/2024 Office Visit Neurology Chicho Steward, DO [address] [place] [address] Health Maintenance Due Date Last Done Comments Albumin/Creatinine Ratio 1957 Zoster Vaccines (1 of 2) 1989 CKD PHOS USE SMARTSET 94221 01/08/2017 01/08/2016 COVID-19 Vaccine (3 - Moderna series) 04/07/2021 02/10/2021, 01/02/2021 Depression Screening 04/11/2022 04/11/2021 Influenza Vaccine (FLU shot) (#1) 2023 09/19/2022, 09/07/2020, 10/01/2019, Additional history exists GFR 02/13/2024 08/15/2023, 07/02, 07/03/2023, Additional history exists CKD HGB USE SMARTSET 66059 06/26/202406/26, 06/26/2023, 10/11/2022, Additional history exists DTaP,Tdap,and [...] Documents on File Type Date Recorded Patient Upholstery Instructor Expl anation Power of Marketing Strategy Manager 11/29/2019 POWER OF A TTORNEY Care Teams Auto Dealership Porter Relationship Specialty Start Date End Date Payam Claire, DO [address] [facility] [place] [address] PCP - General Family Medicine 01/14/23 documented as of this encounter
--- OUTSIDE RECORDS SUMMARY | 2023-10-11 02:58 | External Medical Summary ---
Author Name Unknown Address Unknown Organization [id number]:LABORATORY [facility] – [place], [place] - [address] [place] [address] Laboratory Report Ordering Provider Test Date Status YASMINENINA 09/19/2023 14:24:12 Final Observation Date Value Abnormality Reference (Units ) Status Retic, % (auto) 09/19/2023 14:24:12 2.75 Above high normal 0.80-1.90 (%) Final Reticulocytes, Absolute 09/19/2023 14:24:12 82.2 31.3-100.1 (K/uL) Final Reticulocyte fraction, immature 09/19/2023 14:24:12 24.7 Above high normal 2.5-20.6 (%) Final Reticulocyte HGB 09/19/2023 14:24:12 37.6 Above high normal 29.7-37.4 (pg) Final Performing Location LABORATORY [facility] – [place], [place] - [address] [place] [address]
--- OUTSIDE RECORDS SUMMARY | 2023-10-11 02:58 | External Medical Summary ---
Author Name Unknown Address Unknown Organization [id number]:LABORATORY [facility] – [place] - [address] [place] [address] Laboratory Report Ordering Provider Test Date Status NINA UNDERWOOD 09/19/2023 14:24:12 Final Observation Date Value Abnormality Reference (Units ) Status Folic Acid 09/19/2023 14:24:12 9.2 >4.5 (ng/ mL) Final Performing Location LAB[facility]ATORY [facility] [place] - [address] [place] [address]
--- OUTSIDE RECORDS SUMMARY | 2023-10-11 02:58 | External Medical Summary ---
Author Name Unknown Address Unknown Organization K09:[facility] - [address] [place] [address] Laboratory Report Ordering Provider Test Date Status NINA UNDERWOOD 09/19/2023 14:24:12 Final Observation Date Value Abnormality Reference (Units ) Status BUN 09/19/2023 14:24:12 29 Above high normal 6-20 (mg/dL) Final Creatinine 09/19/2023 14:24:12 1.6 Above high normal 0.6-1.2 (mg/dL) Final Glomerular filtration rate/1.73 sq M.predicted [Volume Rate/Area] in Serum, Plasma or Blood by Creatinine-based formula (CKD-EPI) 09/19/2023 14:24:12 42 Below low normal >=60 (mL/min) Final eGFR is calculated based on the CKD-EPI 2020 equation SODIUM 09/19/2023 14:24:12 142 135-146 (m mol/L) Final Potassium 09/19/2023 14:24:12 4.8 3.5-5.1 (m mol/L) Final Cl 09/19/2023 14:24:12 108 Above high normal 98 -107 (mmol/L) Final CO2 09/19/2023 14:24:12 25 22-32 (mmo l/L) Final Anion gap 09/19/2023 14:24:12 9 7-15 (mmol /L) Final Glucose 09/19/2023 14:24:12 95 70-120 (mg /dL) Final Albumin 09/19/2023 14:24:12 3.1 Below low normal 3.8 -5.0 (g/dL) Final AST (Aspartate aminotransferase) 09/19/2023 14:24:12 39 10-50 (U/L) Fin al Alk Phos 09/19/2023 14:24:12 123 35-130 (U/ L) Final Bilirubin, Total 09/19/2023 14:24:12 0.5 <=1 .2 (mg/dL) Final Calcium 09/19/2023 14:24:12 9.2 8.4-10.2 ( mg/dL) Final Protein 09/19/2023 14:24:12 5.3 Below low normal 6.0 -8.3 (g/dL) Final ALT (Alanine aminotransferase) 09/19/2023 14:24:12 18 10-50 (U/L) Magdaleno johnson Performing Location [facility] [place] [address]
--- OUTSIDE RECORDS SUMMARY | 2023-10-11 02:58 | External Medical Summary | Summary of Care ---
Author Name Unknown Organization [facility] Address [address] [place] [address] Phone [phone] Care Team Providers Care Tong Hooker Name Role Phone AdelsoJunaid acosta Primary Care Provider [phone] Reason for Visit * Reason Comments Hospital Follow-Up Encounter Details Date Type Department Care Team (Late st Contact Info) Description 09/19/2023 1:40 PM EDT Office Visit Family [facility] [address] [place] [address] Payam Claire DO [address] [facility] [address] Permanent atrial fibrillation (HCC)*; Chronic kidney disease, stage 3a (HCC); 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 0 Active Apixaban 5 MG Oral TabletIndications:P aroxysmal atrial fibrillation (HCC) Take 1 Tablet by mouth in the morning and 1 Tablet before bedtime. 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 0 Active Vitamin D (Cholecalciferol) 50 MCG (2000 UT) Oral Capsule Take [...] Propionate 50 MCG/ACT Nasal Suspension Administer 1 [place] into nostril in the morning. 0 Active Spironolactone 100 MG Oral Tablet (Aldactone) Take 1 Tablet by mouth in the morning. 0 Active Metoprolol Succinate ER 25 MG Oral Tablet Extended Release 24 Hour (Toprol XL)Indications:Tony nary artery disease involving king salmon coronary artery of king salmon heart without angina pectoris Take 1 Tab [...] as of this encounter (statuses as of 09/22/2023) Active Problems Problem Noted Date Diagnosed Date [...] of stroke Coronary artery disease invo lving king salmon coronary artery of king salmon heart without angina pectoris Pacemaker AICD (automatic cardioverter/defibrillator) pres ent Permanent atrial fibrillation documented as of this encounter (statuses as of 09/22/2023) Resolved Problems Problem Noted Date Diagnosed Date Resolved Date Dyslipidemia, goal LDL below 70 01/31/2021 01/13/2023 documented as of this encounter (statuses as of 09/22/2023) Immunizations Name Administration Dates Next Due COVID-19 [...] Sign Reading Time Taken Comments Blood Pressure 112/66 09/19/2023 1:31 PM EDT Pulse 74 09/19/2023 1:31 PM EDT Temperature 36.7 C (98 F) 09/19/2023 1:31 PM EDT Respiratory Rate 16 09/19/2023 1:31 PM EDT Oxygen Saturation - - Inhaled Oxygen Concentration - - Weight 106.6 kg (235 lb) 09/19/2023 1:31 PM EDT Height 193 cm (6' 4") 09/19/2023 1:31 PM EDT Body Mass Index 28.61 09/19/2023 1:31 PM EDT documented in this encounter Progress Notes * Payam Claire, DO - 09/19/2023 1:50 PM EDT Subjective: Leonidas Troy is a 83 year old male. Chief Complaint Patient presents with Hospital Follow-Up HPI: Pt in the hospital for 4 days for swelling in his legs. They added aldactone to his regimen and it helped. Lasix was causing issues with his kidneys. He had gained 2-3 pounds overnight. No otherexcitement at the hospital. He is on Torsemide and aldactone regualrly. Lasix as needed. He has had some falls and a walker. They do PT with him at [place]. Seeing cardiology in 1 week. Maybe a mild cough. No F or C. No urinary symptoms beyond peeing more. Fluid seems to have gotten out of hand over the last 3 months. 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 Lisinopril 5 MG Oral Tablet (PRINIVIL) Take 1 Tablet by mouth in the morning. Apixaban 5 MG Oral Tablet Take 1 Tablet by mouth in the morning and 1 Tablet before bedtime. Clopidogrel Bisulfate 75 MG Oral Tablet (pLAVix) Take 1 Tablet by mouth in the morning. Vitamin D (Cholecalciferol) 50 MCG (2000 UT) Oral Capsule Take by mouth. Diclofenac Sodium 1 % Transdermal Gel Place topically on the skin 4 times a day. Apply to to back as needed Rosuvastatin Calcium 10 MG Oral Tablet (Crestor) Take 1 Tablet by mouth in the morning. Take one daily at bedtime . Fluticasone Propionate 50 MCG/ACT Nasal Suspension Administer 1 [place] into nostril in the morning. Spironolactone 100 MG Oral Tablet (Aldactone) Take 1 Tablet by mouth in the morning. Metoprolol Succinate ER 25 MG Oral Tablet Extended Release 24 Hour (Toprol XL) Take 1 Tab by mouth 2 times a day. 180 Tab 3 FLUoxetine HCl 10 MG Oral Tablet (PROzac) Take 1 Tablet by mouth in the morning. Ketoconazole 2 % External Cream Apply behind ears twice daily as needed for flares 30 g 0 Ketoconazole 2 % External Shampoo (Nizoral) Apply to scalp and behind ears 2-3 times per week; leave on 3-5 min before rinsing 120 mL 1 Ferrous Sulfate 325 (65 Fe) MG Oral Tablet Take 1 Tablet by mouth in the morning and 1 Tablet at noon and 1 Tablet in the evening. Take with meals. Take twice per day with meals . Acetaminophen 500 MG Oral Tablet Take 1 Tablet by mouth in the morning and 1 Tablet in the evening. Docusate Sodium 100 MG Oral Capsule (Colace) Take 1 Capsule by mouth daily. Loratadine 10 MG Oral Capsule Take 1 Capsule by mouth in the morning. Melatonin 3 MG Oral Capsule Take 1 Capsule by mouth at bedtime as needed. Furosemide 40 MG Oral Tablet (Lasix) Furosemide 60 mg oral daily alteranting 80 mg every other day 120 Tablet 3 No current facility-administered medications for this visit. Review of patient's allergies indicates: No Known Allergies OBJECTIVE: BP 112/66 | Pulse 74 | Temp 36.7 C (98 F) (Tympanic) | Resp 16 | Ht 1.93 m (6' 4") | Wt 106.6 kg (235 lb) | BMI 28.61 kg/m | BSA 2.39 m Estimated body mass index is 28.61 kg/m as calculated from the following: Height as of this encounter: 1.93 m (6' 4"). Weight as of this encounter: 106.6 kg (235 lb). BP Readings from Last 3 Encounters: 09/19/23 112/66 08/15/23 108/64 08/12/23 111/69 Wt Readings from Last 3 Encounters: 09/19/23 106.6 kg (235 lb) 08/15/23 109.8 kg (242 lb) 08/12/23 109.6 kg (241 lb 9.6 oz) ROS: Negative except for above PHYSICAL EXAM: General: alert, healthy, and no distress Head: Normocephalic, No masses, lesions, tenderness or abnormalities Heart: regular rate & rhythm, no murmur, and no gallops Lungs: chest symmetric with normal AP diameter, no chest deformities noted, no chest wall tenderness, lungs clear to auscultation Extremities: less than 2 second capillary refill, no joint deformities, effusion, or inflammation, and plus 1 edema ASSESSMENT/Plan Permanent atrial fibrillation (HCC) (Primary) Chronic kidney disease, stage 3a (HCC) - COMPREHENSIVE METABOLIC PANEL; Future; Expected date: 09/19/2023 - CBC WITH WBC DIFFERENTIAL AND ANEMIA REFLEX WORKUP; Future; Expected date: 09/19/2023 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 Good discussion on diuretics and appropriate use along with discussions of his current living situation. The above was discussed and understanding was expressed. DO Tayler Stoddardally signed by Payam Claire DO at 09/22/2023 12:34 PM EDT documented in this encounter Nursing Notes * Evonne Jones LPN - 09/19/2023 1:24 PM EDT Chief Complaint Patient presents with Hospital Follow-Up documented in this encounter Plan of Treatment Upcoming Encounters Date Type Department Care Team (Late st Contact Info) Description 09/26/2023 3:30 PM EDT Office Visit Cardiology, [facility] [address] [place] [address] Melanie Torres CRNP [address] [place] [address] 10/03/2023 9:20 AM EDT Office Visit Nephrology, [facility] [address] [place] [address] Cameron Martinez MD [address] [place], [place] [id number] 10/28/2023 10:30 AM EST Appointment Radiology, [place] [address] [place] [id number] 10/28/2023 11:30 AM EST Procedure Only Urology, [place] [address] [place] [address] Garrick Dorman MD [address] [place] [address] 11/18/2023 2:00 PM EST Cardiac Studies Cardiology, [facility] [address] [facility] [place] [address] [facility] [address] [facility] [address] 11/21/2023 1:50 PM EST Office Visit Dermatology [facility] [address] [facility] [place] [address] Lavonne Herzog, KITA [address] [place] [address] 02/24/2024 4:20 PM EDT Office Visit Neurology [facility] [place] [address] [facility] [place] [address] Chicho Steward, DO [address] [facility] [place] [address] 04/16/2024 1:00 PM EDT Office Visit Family Practice [facility] [place] [address] [facility] [place] [address] Payam Claire, DO [address] [facility] [place] [address] Health Maintenance Due Date Last Done Comments Albumin/Creatinine Ratio 1957 Zoster Vaccines (1 of 2) 1989 CKD PHOS USE SMARTSET 68406 01/08/2017 01/08/2016 Depression Screening 04/11/2022 04/11/2021 COVID-19 Vaccine (2022- season) 2023 02/10/2021, 01/02/2021 GFR 03/20/2024 09/19/2023, 08/01, 07/24/2023, Additional history exists CKD HGB USE SMARTSET 88387 09/19/202409/19, 09/19/2023, 06/26/2023, Additional history exists DTaP,Tdap,and [...] Not on filedocumented as of this encounter Results * (ABNORMAL) COMPREHENSIVE METABOLIC PANEL (09/19/2023 2:24 PM EDT) BUN 29(H) 6 - 20 mg/dL 09/19/2023 3:28 PM EDT [facility]- Creatinine 1.6(H) 0.6 - 1.2 mg/dL 09/19/2023 3:28 PM EDT [facility]- Estimated Glomerular Filtration Rate 42(L) >=60 mL/min 09/19/2023 3:28 PM EDT [facility]- Comment:eGFR is calculated b ased on the CKD-EPI 2020 equation Sodium 142 135 - 146 mmol/L 09/19/2023 3:28 PM EDT [facility]- Potassium 4.8 3.5 - 5.1 mmol/L 09/19/2023 3:28 PM EDT [facility] 56- Chloride 108(H) 98 - 107 mmol/L 09/19/2023 3:28 PM EDT [facility] 56- CO2 25 22 - 32 mmol/L 09/19/2023 3:28 PM EDT [facility] 56- Anion Gap 9 7 - 15 mmol/L 09/19/2023 3:28 PM EDT [facility] 56- Glucose 95 70 - 120 mg/dL 09/19/2023 3:28 PM EDT [facility] 56- Albumin 3.1(L) 3.8 - 5.0 g/dL 09/19/2023 3:28 PM EDT [facility] 56- AST 39 10 - 50 U/L 09/19/2023 3:28 PM EDT [facility]- Alkaline Phosphatase 123 35 - 130 U/L 09/19/2023 3:28 PM EDT [facility] 56- Bilirubin, Total 0.5 <=1.2 mg/dL 09/19/2023 3:28 PM EDT [facility] 56- Calcium 9.2 8.4 - 10.2 mg/dL 09/19/2023 3:28 PM EDT [facility] Protein 5.3(L) 6.0 - 8.3 g/dL 09/19/2023 3:28 PM EDT [facility] 56 ALT 18 10 - 50 U/L 09/19/2023 3:28 PM EDT [facility] Blood Venous blood specimen / Unknown Venipuncture / Unknown 09/19/2023 2:24 PM EDT 09/19/2023 2:24 PM EDT Payam Claire DO LAB BLOOD ORDERABLE S [facility] [address] [place] [address] documented in this encounter Visit Diagnoses Diagnosis Permanent atrial fibrillation (HCC)- Primary Atrial fibrillation Chronic kidney disease, stage 3a (HCC) 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
--- OUTSIDE RECORDS SUMMARY | 2023-10-11 02:58 | External Medical Summary | Summary of Care ---
Author Name Unknown Organization [facility] Address [address] [place] [address] Phone [phone] Care Team Providers Care Holistic Health Practitioner Name Role Phone ShemarJunaid robles Primary Care Provider [phone] Reason for Visit * Reason Comments Outpatient Testing Encounter Details Date Type Department Care Team Description 09/19/2023 Laboratory Laboratory [facility] [address] [place] [phone] [facility] [address] [place] [address] Encounter for monitoring diuretic therapy; Kidney disease, chronic, stage IV (GFR 15-29 ml/min) ([facility]); Chronic kidney disease, stage 3a ([facility]) Allergies No known active allergiesdocumented as of this encounter (statuses as of 09/19/2023) Medications Medication Sig Dispensed Refills Start Date End Date Status Nitroglycerin 0.4 MG Sublingual Tablet SublingualIndicatio ns:Coronary artery disease involving [place] coronary artery of [place] heart without angina pectoris Place 1 Tablet under the tongue every 5 minutes as needed for Pain, Chest. 0 Active Lisinopril 5 MG Oral Tablet (PRINIVIL)Indicatio ns:Coronary artery disease involving [place] coronary artery of [place] heart without angina pectoris Take 1 Tablet by mouth in the morning. 0 Active Apixaban 5 MG Oral TabletIndications:P aroxysmal atrial fibrillation (HCC) Take 1 Tablet by mouth in the morning and 1 Tablet before bedtime. 0 Active Clopidogrel Bisulfate 75 MG Oral Tablet (pLAVix)Indications :Coronary artery disease involving [place] coronary artery of [place] heart without angina pectoris Take 1 Tablet [...] Propionate 50 MCG/ACT Nasal Suspension Administer 1 [place] into nostril in the morning. 0 Active Spironolactone 100 MG Oral Tablet (Aldactone) Take 1 Tablet by mouth in the morning. 0 Active Metoprolol Succinate ER 25 MG Oral Tablet Extended Release 24 Hour (Toprol XL)Indications:Tony nary artery disease involving [place] coronary artery of [place] heart without angina pectoris Take 1 Tab [...] as of this encounter (statuses as of 09/19/2023) Active Problems Problem Noted Date Dyslipidemia 01/13/2023 History of nonmelanoma skin cancer 12/22 Overview: Hx of BCC R helix s/p Mohs 2021,BCC L shoulder 2021, BCC R posterior neck 2021,NMSC lower lip years ago (no records) Chronic kidney disease, stage 3a 022 Overview: Per CKD protocol Ischemic cardiomyopathy 01/31/2021 HTN, goal below 130/80 01/31/2021 History of stroke Coronary artery disease invo lving [place] coronary artery of [place] heart without angina pectoris Pacemaker AICD (automatic cardioverter/defibrillat or) present Permanent atrial fibrillation documented as of this encounter (statuses as of 09/19/2023) Resolved Problems Problem Noted Date Resolved Date Dyslipidemia, goal LDL below 70 01/31/2021 01/13/2023 documented as of this encounter (statuses as of 09/19/2023) Immunizations Name Administration Dates Next Due COVID-19 [...] Melanie Torres CRNP [address] [place] [address] 10/03/2023 Office Visit Nephrology Cameron Martinez MD [address] [place] [address] 10/28/2023 Appointment Radiology 10/28/2023 Procedure Only Urology Garrick Dorman MD [address] [place] [address] 11/18/2023 Cardiac Studies Cardiology [facility], [facility] [address] [place] [address] 11/21/2023 Office Visit Dermatology Lavonne Herzog PA-C [address] [place] [address] 02/24/2024 Office Visit Neurology Chicho Steward, DO [address] [place] [address] 04/16/2024 Office Visit Family Medicine Payam Claire DO [address] [place] [address] Pending Results Name Type Priority Associated Diagnoses Date /Time COMPREHENSIVE METABOLIC PANEL Lab Routine Chronic kidney disease, stage 3a (HCC) 09/19/2023 2:24 PM EDT CBC WITH WBC DIFFERENTIAL AND ANEMIA REFLEX WORKUP Lab Routine Chronic kidney disease, stage 3a (HCC) 09/19/2023 2:24 PM EDT ANEMIA CBC Lab Routine Chronic kidney disease, stage 3a (HCC) 09/19/2023 2:24 PM EDT DIFFERENTIAL, AUTOMATED Lab Routine Chronic kidney disease, stage 3a (HCC) 09/19/2023 2:24 PM EDT ANEMIA REFLEX CHEMISTRY HOLD Lab Routine Chronic kidney disease, stage 3a (HCC) 09/19/2023 2:24 PM EDT Health Maintenance Due Date Last Done Comments Albumin/Creatinine Ratio 1957 Zoster Vaccines (1 of 2) 1989 CKD PHOS USE SMARTSET 71468 01/08/2017 01/08/2016 Depression Screening 04/11/2022 04/11/2021 COVID-19 Vaccine ( season) 2023 02/10/2021, 01/02/2021 GFR 02/13/2024 08/15/2023, 07/02, 07/03/2023, Additional history exists CKD HGB USE SMARTSET 23164 06/26/202406/26, 06/26/2023, 10/11/2022, Additional history exists DTaP,Tdap,and [...] Not on filedocumented as of this encounter Visit Diagnoses Diagnosis Encounter for monitoring diuretic therapy Encounter for therapeutic drug monitoring Kidney disease, chronic, stage IV (GFR 15-29 ml/min) (HCC) Chronic kidney disease, Stage IV (severe) Chronic kidney disease, stage 3a (HCC) documented in this encounter Advance Directives Documents on File Type Date Recorded Patient Loan Interviewer Expl anation Power of Life Insurance Sales Agent 11/29/2019 POWER OF A TTORNEY Care Teams Holistic Health Practitioner Relationship Specialty Start Date End Date Junaid Carey, DO [address] [place] [address] PCP - General Internal Medicine 09/04/23 documented as of this encounter
--- OUTSIDE RECORDS SUMMARY | 2023-10-11 02:59 | External Medical Summary | Summary of Care ---
Author Name Unknown Organization [facility] Address [address] [place] [address] Phone [phone] Care Team Providers Care Science Consultant Name Role Phone TaePayam mckoy Primary Care Provider [phone] Reason for Visit * Reason Onset Date Comments Fax 08/14/2023 Encounter Details Date Type Department Care Team Description 08/14/2023 Telephone Urology, [place] [address] [place] [address] Maddy Paris PA-C [address] [place] [address] Fax Allergies No known active allergiesdocumented as of this encounter (statuses as of 08/15/2023) Medications Medication Sig Dispensed Refills Start Date End Date Status Nitroglycerin 0.4 MG Sublingual Tablet SublingualIndicati ons:Coronary artery disease involving [place] coronary artery of [place] heart without angina pectoris Place 1 Tablet under the tongue every 5 minutes as needed for Pain, Chest. 0 Active Lisinopril 5 MG Oral Tablet (PRINIVIL)Indicati ons:Coronary artery disease involving [place] coronary artery of [place] heart without angina pectoris Take 1 Tablet by mouth in the morning. 0 Active Apixaban 5 MG Oral TabletIndications: Paroxysmal atrial fibrillation (HCC) Take 1 Tablet by mouth in the morning and 1 Tablet before bedtime. 0 Active Clopidogrel Bisulfate 75 MG Oral Tablet (pLAVix)Indication s:Coronary artery disease involving [place] coronary artery of [place] heart without angina pectoris Take 1 Tablet [...] Propionate 50 MCG/ACT Nasal Suspension Administer 1 [place] into nostril in the morning. 0 Active Spironolactone 100 MG Oral Tablet (Aldactone) Take 1 Tablet by mouth in the morning. 0 Active Metoprolol Succinate ER 25 MG Oral Tablet Extended Release 24 Hour (Toprol XL)Indications:Cor onary artery disease involving [place] coronary artery of [place] heart without angina pectoris Take 1 Tab [...] of stroke Coronary artery disease invo lving [place] coronary artery of [place] heart without angina pectoris Pacemaker AICD (automatic [...] AM , unable to complete call, per dumper bailer operator "call could not be completed at this time] Called [facility]istel at [facility] 08/15/2023 8:47 AM spoke with nursing, gracie [...] Received contact information for patient's daughter Sammi [phone] and son Navdeep [phone] Attempted to call patient's son Navdeep, number [...] Urine cultures done on 08/12/23 faxed to [phone]. documented in this encounter Plan of Treatment Upcoming Encounters Date Type Specialty Care Team Description 09/26/2023 Office Visit Cardiology Melanie Torres CRNP [address] [place] [address] 10/28/2023 Appointment Radiology 10/28/2023 Procedure Only Urology Garrick Dorman MD [address] [place] [address] 11/18/2023 Cardiac Studies Cardiology [facility], Pacer [facility] [address] [place] [address] 11/21/2023 Office Visit [facility]atology [facility] [address] [facility] [address] 02/24/2024 Office Visit Neurology Chicho Steward, DO [address] [place] [address] Health Maintenance Due Date Last Done Comments Albumin/Creatinine Ratio 1957 Zoster Vaccines (1 of 2) 1989 CKD PHOS USE SMARTSET 49644 01/08/2017 01/08/2016 COVID-19 Vaccine (3 - Moderna series) 04/07/2021 02/10/2021, 01/02/2021 Depression Screening 04/11/2022 04/11/2021 Influenza Vaccine (FLU shot) (#1) 2023 09/19/2022, 09/07/2020, 10/01/2019, Additional history exists GFR 02/13/2024 08/15/2023, 07/02, 07/03/2023, Additional history exists CKD HGB USE SMARTSET 46119 06/26/202406/26, 06/26/2023, 10/11/2022, Additional history exists DTaP,Tdap,and [...] Documents on File Type Date Recorded Patient Mill Tender Washing Expl anation Power of Parts Sales Associate 11/29/2019 POWER OF A TTORNEY Care Teams Science Consultant Relationship Specialty Start Date End Date Payam Claire, DO [address] [place] [address] PCP - General Family Medicine 01/14/23 documented as of this encounter
--- OUTSIDE RECORDS SUMMARY | 2023-10-11 02:59 | External Medical Summary | Summary of Care ---
Author Name Unknown Organization [facility] Address [address] [place] [address] Phone [phone] Care Team Providers Care Green Meat Packer Name Role Phone AletheaPayam Aline STEINBERG Primary Care Provider [phone] Reason for Visit * Reason Comments NEW PATIENT Encounter Details Date Type Department Care Team Description 08/12/2023 Office Visit Urology, [place] [address] [place], [place] [id number] Maddy Paris PA-C [address] [place] [address] Urinary incontinence without sensory awareness* Allergies No known active allergiesdocumented as of this encounter (statuses as of 08/12/2023) Medications Medication Sig Dispensed Refills Start Date End Date Status Nitroglycerin 0.4 MG Sublingual Tablet SublingualIndications :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 0 Active Apixaban 5 MG Oral TabletIndications:Par oxysmal atrial fibrillation (HCC) Take 1 Tablet by mouth in the morning and 1 Tablet before bedtime. 0 Active Clopidogrel Bisulfate 75 MG Oral Tablet (pLAVix)Indications:C oronary artery disease involving minto coronary artery of minto heart without angina pectoris Take 1 Tablet [...] Propionate 50 MCG/ACT Nasal Suspension Administer 1 [place] into nostril in the morning. 0 Active Spironolactone 100 MG Oral Tablet (Aldactone) Take 1 Tablet by mouth in the morning. 0 Active Metoprolol Succinate ER 25 MG Oral Tablet Extended Release 24 Hour (Toprol XL)Indications:[place] artery disease involving minto coronary artery of minto heart without angina pectoris Take 1 Tab [...] Oral Tablet Take 1 Tablet by mouth daily with breakfast. 0 Active Acetaminophen 500 MG Oral Tablet [...] 0 Active Furosemide 40 MG Oral Tablet (Lasix)Indications:[place] on chronic systolic (congestive) heart failure (HCC) Furosemide 60 mg oral daily with 80 mg one day per week. 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 Pacemaker AICD (automatic cardioverter/defibrillat or) present Permanent atrial fibrillation documented as of this encounter (statuses as of 08/12/2023) Resolved Problems Problem Noted Date Resolved Date Dyslipidemia, goal LDL below 70 01/31/2021 01/13/2023 documented as of this encounter (statuses as of 08/12/2023) Immunizations Name Administration Dates Next Due COVID-19 [...] Date Smoking Tobacco: Never Smokeless Tobacco: Never Tobacco Cessation:Counseling Given: Not Answered Alcohol Use Standard Drinks/Week Comments Never 0 [...] Sign Reading Time Taken Comments Blood Pressure 111/69 08/12/2023 1:06 PM EDT Pulse 79 08/12/2023 1:06 PM EDT Temperature 35.9 C (96.6 F) 08/12/2023 1:06 PM ED T Respiratory Rate - - Oxygen Saturation - - Inhaled Oxygen Concentration - - Weight 109.6 kg (241 lb 9.6 oz) 08/12/2023 1:06 PM EDT Height - - Body Mass Index 29.41 08/29/2021 3:04 PM EDT documented in this encounter Plan of Treatment Upcoming Encounters Date Type Specialty Care Team Description 08/15/2023 Office Visit Cardiology Deondre Cat MD [address] [place] [address] 11/18/2023 Cardiac Studies Cardiology [facility] [place] [address] 11/21/2023 Office Visit Dermatology Lavonne Herzog [facility]-C [address] [facility] [address] 02/24/2024 Office Visit Neurology Chicho Steward, DO [address] [facility] [address] Scheduled Orders Name Type Priority Associated Diagnoses Orde r Schedule URINALYSIS, REFLEX TO MICROSCOPIC Lab Routine Urinary incontinence without sensory awareness Ordered: 08/12/2023 POST VOID RESIDUAL BLADDER US (PHYSICIAN ONLY) Procedures Routine Urinary incontinence without sensory awareness Ordered: 08/12/2023 CULTURE, URINE, QUANTITATIVE Lab Routine Urinary incontinence without sensory awareness Ordered: 08/12/2023 XR ABDOMEN 1 VIEW Medical Imaging Routine Urinary incontinence without sensory awareness Ordered: 08/12/2023 Health Maintenance Due Date Last Done Comments Albumin/Creatinine Ratio 1957 Zoster Vaccines (1 of 2) 1989 CKD PHOS USE SMARTSET 24581 01/08/2017 01/08/2016 COVID-19 Vaccine (3 - Moderna series) 04/07/2021 02/10/2021, 01/02/2021 Depression Screening 04/11/2022 04/11/2021 Influenza Vaccine (FLU shot) (#1) 2023 09/19/2022, 09/07/2020, 10/01/2019, Additional history exists GFR 01/24/2024 07/24/2023, 08/0 01/2023, 06/26/2023, Additional history exists CKD HGB USE SMARTSET 10584 06/26/202406/26, 06/26/2023, 10/11/2022, Additional history exists DTaP,Tdap,and [...] Procedure Name Priority Date/Time Associated Diagnosis Comments URINALYSIS, POINT OF CARE [facility] 08/12/2023 2:28 PM EDT documented in this encounter Results * (ABNORMAL) URINALYSIS, POINT OF CARE (08/12/2023 2:28 PM EDT) Color, Urine Dark Yellow(A) Light Yellow, Yellow 08/12/2023 2:30 PM EDT [facility] Clarity, Urine Clear Clear 08/12/2023 2:30 PM EDT [facility] Glucose, Urine Negative Negative mg/dL 08/12/2023 2:30 PM EDT [facility] Bilirubin, Urine Negative Negative 08/12/2023 2:30 PM EDT [facility] Ketone, Urine Trace(A) Negative mg/dL 08/12/2023 2:30 PM EDT [facility] Specific [place], Urine >=1.030 1.003 - 1.030 08/12/2023 2:30 PM EDT [facility] Blood, Urine Moderate(A) Negative 08/12/2023 2:30 PM EDT [facility] pH, Urine 6.0 5.0, 5.5, 6.0, 6.5, 7.0, 7.5 units 08/12/2023 2:30 PM EDT [facility] Protein, Urine >=300(A) Negative mg/dL 08/12/2023 2:30 PM EDT [facility] Urobilinogen, Urine 2.0(A) 0.2, 1.0 mg/dL 08/12/2023 2:30 PM EDT [facility] Nitrite, Urine Negative Negative 08/12/2023 2:30 PM EDT [facility] Esterase, Urine Negative Negative 08/12/2023 2:30 PM EDT [facility] Urine 08/12/2023 2:28 PM EDT 08/12/2023 2:30 PM EDT Maddy Paris PA-C LAB POINT OF CA RE TEST DOCKED DEVICE UNSOLICITED RESULTS [facility] [address] [place] [address] documented in this encounter Visit Diagnoses Diagnosis Urinary incontinence without sensory awareness- Primary Incontinence without sensory awareness documented in this encounter Advance Directives Documents on File Type Date Recorded 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 [address] PCP - General Family Medicine 01/14/23 documented as of this encounter
--- OUTSIDE RECORDS SUMMARY | 2023-10-11 02:59 | External Medical Summary | Summary of Care ---
Author Name Unknown Organization [facility] Address [address] [place] [address] Phone [phone] Care Team Providers Care Cell Efficiency Supervisor Name Role Phone AletheaPayam Aline STEINBERG Primary Care Provider [phone] Reason for Visit * Reason Comments Outpatient Testing Encounter Details Date Type Department Care Team Description 08/15/2023 Laboratory Laboratory, [facility] [address] [facility] [place] [address] [facility] [address] [facility] [place] [address] Chronic kidney disease, stage 3a (HCC); Acute on chronic systolic (congestive) heart failure (HCC) Allergies No known active allergiesdocumented as of this encounter (statuses as of 08/15/2023) Medications Medication Sig Dispensed Refills Start Date End Date Status Nitroglycerin 0.4 MG Sublingual Tablet SublingualIndicatio ns:Coronary artery disease involving ambler coronary artery of ambler heart without angina pectoris Place 1 Tablet under the tongue every 5 minutes as needed for Pain, Chest. 0 Active Lisinopril 5 MG Oral Tablet (PRINIVIL)Indicatio ns:Coronary artery disease involving ambler coronary artery of ambler heart without angina pectoris Take 1 Tablet by mouth in the morning. 0 Active Apixaban 5 MG Oral TabletIndications:P aroxysmal atrial fibrillation (HCC) Take 1 Tablet by mouth in the morning and 1 Tablet before bedtime. 0 Active Clopidogrel Bisulfate 75 MG Oral Tablet (pLAVix)Indications :Coronary artery disease involving ambler coronary artery of [...] Propionate 50 MCG/ACT Nasal Suspension Administer 1 [place] into nostril in the morning. 0 Active Spironolactone 100 MG Oral Tablet (Aldactone) Take 1 Tablet by mouth in the morning. 0 Active Metoprolol Succinate ER 25 MG Oral Tablet Extended Release 24 Hour (Toprol XL)Indications:Tony nary artery disease involving ambler coronary artery of [...] Melanie Torres CRNP [address] [place] [address] 10/28/2023 Appointment Radiology 10/28/2023 Procedure Only Urology Garrick Dorman MD [address] [place] [address] 11/18/2023 Cardiac Studies [facility] [address] [place] [address] 11/21/2023 Office Visit Dermatology Lavonne Herzog PA-C [address] [place] [address] 02/24/2024 Office Visit Neurology Chicho Steward, DO [address] [place] [address] Health Maintenance Due Date Last Done Comments Albumin/Creatinine Ratio 1957 Zoster Vaccines (1 of 2) 1989 CKD PHOS USE SMARTSET 02456 01/08/2017 01/08/2016 COVID-19 Vaccine (3 - Moderna series) 04/07/2021 02/10/2021, 01/02/2021 Depression Screening 04/11/2022 04/11/2021 Influenza Vaccine (FLU shot) (#1) 2023 09/19/2022, 09/07/2020, 10/01/2019, Additional history exists GFR 02/13/2024 08/15/2023, 0803/2023, 07/03/2023, Additional history exists CKD HGB USE SMARTSET 56868 06/26/202406/26, 06/26/2023, 10/11/2022, Additional history exists DTaP,Tdap,and [...] Procedure Name Priority Date/Time Associated Diagnosis Comments COMPREHENSIVE METABOLIC PANEL Routine 08/15/2023 11:48 AM EDT Chronic kidney disease, stage 3a (HCC) Acute on chronic systolic (congestive) heart failure (HCC) documented in this encounter Results * (ABNORMAL) COMPREHENSIVE METABOLIC PANEL (08/15/2023 11:48 AM EDT) BUN 30(H) 6 - 20 mg/dL 08/15/2023 1:02 PM EDT [facility] [place] [facility] Creatinine 1.5(H) 0.6 - 1.2 mg/dL 08/15/2023 1:02 PM EDT [facility] [place] [facility] Estimated Glomerular Filtration Rate 45(L) >=60 mL/min 08/15/2023 1:02 PM EDT [facility] [place] [facility] Comment:eGFR is calculated b ased on the CKD-EPI 2020 equation Sodium 143 135 - 146 mmol/L 08/15/2023 1:02 PM EDT [facility] [place] [facility] Potassium 4.1 3.5 - 5.1 mmol/L 08/15/2023 1:02 PM EDT [facility] [place] [facility] Chloride 109(H) 98 - 107 mmol/L 08/15/2023 1:02 PM EDT [facility] [place] [facility] CO2 26 22 - 32 mmol/L 08/15/2023 1:02 PM EDT [facility] [place] [facility] Anion Gap 8 7 - 15 mmol/L 08/15/2023 1:02 PM EDT [facility] [place] [facility] Glucose 78 70 - 120 mg/dL 08/15/2023 1:02 PM EDT [facility] [place] [facility] Albumin 2.7(L) 3.8 - 5.0 g/dL 08/15/2023 1:02 PM EDT [facility] [place] [facility] AST 30 10 - 50 U/L 08/15/2023 1:02 PM EDT [facility] [place] [facility] Alkaline Phosphatase 93 35 - 130 U/L 08/15/2023 1:02 PM EDT [facility] [place] [facility] Bilirubin, Total 0.3 <=1.2 mg/dL 08/15/2023 1:02 PM EDT [facility] [place] [facility] Calcium 8.8 8.4 - 10.2 mg/dL 08/15/2023 1:02 PM EDT [facility] [place] [facility] Protein 4.7(L) 6.0 - 8.3 g/dL 08/15/2023 1:02 PM EDT [facility] [place] [facility] ALT 19 10 - 50 U/L 08/15/2023 1:02 PM EDT [facility] [place] [facility] Blood Venous blood specimen / Unknown Venipuncture / Unknown 08/15/2023 11:48 AM EDT 08/15/2023 11:48 AM EDT Deondre Cat MD LAB BLOOD ORDERABLES [facility] [place] [facility] [address] [facility] [place] [address] documented in this encounter Visit Diagnoses Diagnosis Chronic kidney disease, stage 3a (HCC) Acute on chronic systolic (congestive) heart failure (HCC) documented in this encounter Advance Directives Documents on File Type Date Recorded 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
--- OUTSIDE RECORDS SUMMARY | 2023-10-11 02:59 | External Medical Summary ---
Author Name Unknown Address Unknown Organization [id number]:LABORATORY [facility] - [address] [place] [address] Laboratory Report Ordering Provider Test Date Status YAIR MERINO 08/12/2023 16:16:25 Final Observation Date Value Abnormality Reference (Units) Status Bacteria identified in Specimen by Culture 08/12/2023 16:16:25 No significant growth Final Test: Culture, Urine, Quanti tative
Specimen Source: Urine, Clean Catch
Specimen Type: Urine
Specimen Date: 08/12/2023 4:16 PM
Result Date: 08/13/2023 1:35 PM
Result Status: Final result
Resulting Lab: [facility]ORY [facility]
[address]
[facility] [address]

CULTURE

No significant growth

null Performing Location LABORATORY [facility] - [address] [place] [id number]
--- OUTSIDE RECORDS SUMMARY | 2023-10-11 02:59 | External Medical Summary ---
Author Name Unknown Address Unknown Organization [id number]:[facility] [place] [address] [facility] [address] Laboratory Report Ordering Provider Test Date Status YAIR MERINO 08/12/2023 16:16:25 Final Observation Date Value Abnormality Reference (Units ) Status Color of Urine by Auto 08/12/2023 16:16:25 Yellow Colorless, Light Yellow, Yellow, Dark Yellow Final Clarity, Urine 08/12/2023 16:16:25 Clear Clear Final Glucose [Mass/volume] in Urine by Automated test strip 08/12/2023 16:16:25 100 Abnormal Negative (mg/dL) Final Bilirubin.total [Presence] in Urine by Automated test strip 08/12/2023 16:16:25 Negative Negative Final Ketones [Mass/volume] in Urine by Automated test strip 08/12/2023 16:16:25 Negative Negative (mg/dL) Final Specific gravity, Urine 08/12/2023 16:16:25 1.034 Above high normal 1.003-1.030 Final Hemoglobin [Presence] in Urine by Automated test strip 08/12/2023 16:16:25 Large Abnormal Negative Final pH, Urine 08/12/2023 16:16:25 6.5 5.0-7.5 (Units) Final Protein [Mass/volume] in Urine by Automated test strip 08/12/2023 16:16:25 >300 Abnormal Negative (mg/dL) Final Urobilinogen [Mass/volume] in Urine by Automated test strip 08/12/2023 16:16:25 2.0 Abnormal Normal (mg/dL) Final Nitrite [Presence] in Urine by Automated test strip 08/12/2023 16:16:25 Negative Negative Final Leukocyte esterase [Presence] in Urine by Automated test strip 08/12/2023 16:16:25 Negative Negative Final RBC, Urine 08/12/2023 16:16:25 50+ Abnormal 0-2 (/HPF) Final WBC, Urine 08/12/2023 16:16:25 0-2 0-2 (/HPF) Final Bacteria [#/area] in Urine sediment by Microscopy high power field 08/12/2023 16:16:25 51-100 Abnormal 0-25 (/HPF) Final Hyaline casts, Urine 08/12/2023 16:16:25 5-9 Abnormal None (/LPF) Final Performing Location [facility] - [facility] [address] [facility] [address]
--- OUTSIDE RECORDS SUMMARY | 2023-10-11 02:59 | External Medical Summary ---
Author Name Unknown Address Unknown Organization [id number]:[facility] [facility] - [address] [place] [address] Laboratory Report Ordering Provider Test Date Status PEG HUMMEL 08/15/2023 11:48:37 Final Observation Date Value Abnormality Reference (Units ) Status BUN 08/15/2023 11:48:37 30 Above high normal 6-20 (mg/dL) Final Creatinine 08/15/2023 11:48:37 1.5 Above high normal 0.6-1.2 (mg/dL) Final Glomerular filtration rate/1.73 sq M.predicted [Volume Rate/Area] in Serum, Plasma or Blood by Creatinine-based formula (CKD-EPI) 08/15/2023 11:48:37 45 Below low normal >=60 (mL/min) Final eGFR is calculated based on the CKD-EPI 2020 equation SODIUM 08/15/2023 11:48:37 143 135-146 (m mol/L) Final Potassium 08/15/2023 11:48:37 4.1 3.5-5.1 (m mol/L) Final Cl 08/15/2023 11:48:37 109 Above high normal 98 -107 (mmol/L) Final CO2 08/15/2023 11:48:37 26 22-32 (mmo l/L) Final Anion gap 08/15/2023 11:48:37 8 7-15 (mmol /L) Final Glucose 08/15/2023 11:48:37 78 70-120 (mg /dL) Final Albumin 08/15/2023 11:48:37 2.7 Below low normal 3.8 -5.0 (g/dL) Final AST (Aspartate aminotransferase) 08/15/2023 11:48:37 30 10-50 (U/L) Fin al Alk Phos 08/15/2023 11:48:37 93 35-130 (U/ L) Final Bilirubin, Total 08/15/2023 11:48:37 0.3 <=1 .2 (mg/dL) Final Calcium 08/15/2023 11:48:37 8.8 8.4-10.2 ( mg/dL) Final Protein 08/15/2023 11:48:37 4.7 Below low normal 6.0 -8.3 (g/dL) Final ALT (Alanine aminotransferase) 08/15/2023 11:48:37 19 10-50 (U/L) Magdaleno johnson Performing Location [facility] [place] [facility] - [address] [facility] [address]
--- OUTSIDE RECORDS SUMMARY | 2023-10-11 02:59 | External Medical Summary | Summary of Care ---
Author Name Unknown Organization [facility] Address [address] [place] [address] Phone [phone] Care Team Providers Care Head Scorer Name Role Phone AletheaPayam Aline STEINBERG Primary Care Provider [phone] Reason for Visit * Reason Comments NEW PATIENT Encounter Details Date Type Department Care Team Description 08/12/2023 Office Visit Urology, [facility] [address], [place] [id number] Maddy Paris PA-C [address] [place] [address] Urinary incontinence without sensory awareness* Allergies No known active allergiesdocumented as of this encounter (statuses as of 08/12/2023) Medications Medication Sig Dispensed Refills Start Date End Date Status Nitroglycerin 0.4 MG Sublingual Tablet SublingualIndications :Coronary artery disease involving [place] coronary artery of [place] heart without angina pectoris Place 1 Tablet under the tongue every 5 minutes as needed for Pain, Chest. 0 Active Lisinopril 5 MG Oral Tablet (PRINIVIL)Indications :Coronary artery disease involving [place] coronary artery of [place] heart without angina pectoris Take 1 Tablet by mouth in the morning. 0 Active Apixaban 5 MG Oral TabletIndications:Par oxysmal atrial fibrillation (HCC) Take 1 Tablet by mouth in the morning and 1 Tablet before bedtime. 0 Active Clopidogrel Bisulfate 75 MG Oral Tablet (pLAVix)Indications:C oronary artery disease involving [place] coronary artery of [place] heart without angina pectoris Take 1 Tablet [...] Propionate 50 MCG/ACT Nasal Suspension Administer 1 [place] into nostril in the morning. 0 Active Spironolactone 100 MG Oral Tablet (Aldactone) Take 1 Tablet by mouth in the morning. 0 Active Metoprolol Succinate ER 25 MG Oral Tablet Extended Release 24 Hour (Toprol XL)Indications:[place] artery disease involving [place] coronary artery of [place] heart without angina pectoris Take 1 Tab [...] Active Furosemide 40 MG Oral Tablet (Lasix)Indications:[place] on chronic systolic (congestive) heart failure (HCC) [...] of stroke Coronary artery disease invo lving [place] coronary artery of [place] heart without angina pectoris Pacemaker AICD (automatic [...] Deondre Cat MD [address] [place] [address] 11/18/2023 Cardiac Studies Cardiology [facility] [place] [address] 11/21/2023 Office Visit Dermatology [facility] [address] [facility] [place] [address] 02/24/2024 Office Visit Neurology Chicho Steward, DO [address] [facility] [address] Scheduled Orders Name Type Priority Associated Diagnoses [...] of 2) 1989 CKD PHOS USE SMARTSET 09421 01/08/2017 01/08/2016 COVID-19 Vaccine (3 - Moderna series) 04/07/2021 02/10/2021, 01/02/2021 Depression Screening 04/11/2022 04/11/2021 Influenza Vaccine (FLU shot) (#1) 2023 09/19/2022, 09/07/2020, 10/01/2019, Additional history exists GFR 01/24/2024 07/24/2023, 08/0 01/2023, 06/26/2023, Additional history exists CKD HGB USE SMARTSET 25171 06/26/202406/26, 06/26/2023, 10/11/2022, Additional history exists DTaP,Tdap,and [...] Diagnosis Comments URINALYSIS, POINT OF CARE [facility] 08/12/2023 2:28 PM EDT documented in this encounter Results * (ABNORMAL) URINALYSIS, POINT OF CARE (08/12/2023 2:28 PM EDT) Color, Urine Dark Yellow(A) Light Yellow, Yellow 08/12/2023 2:30 PM EDT [facility] Clarity, Urine Clear Clear 08/12/2023 2:30 PM EDT [facility] Glucose, Urine Negative Negative mg/dL 08/12/2023 2:30 PM EDT [facility] Bilirubin, Urine Negative Negative 08/12/2023 2:30 PM EDT [facility] [employer] Ketone, Urine Trace(A) Negative mg/dL 08/12/2023 2:30 PM EDT [facility] Specific [place], Urine >=1.030 1.003 - 1.030 08/12/2023 2:30 PM EDT [facility] Blood, Urine Moderate(A) Negative 08/12/2023 2:30 PM EDT [facility] pH, Urine 6.0 5.0, 5.5, 6.0, 6.5, 7.0, 7.5 units 08/12/2023 2:30 PM EDT [facility] Protein, Urine >=300(A) Negative mg/dL 08/12/2023 2:30 PM EDT [facility] Urobilinogen, Urine 2.0(A) 0.2, 1.0 mg/dL 08/12/2023 2:30 PM EDT [facility] Nitrite, Urine Negative Negative 08/12/2023 2:30 PM EDT [facility] Esterase, Urine Negative Negative 08/12/2023 2:30 PM EDT [facility] Urine 08/12/2023 2:28 PM EDT 08/12/2023 2:30 PM EDT Maddy Paris PA-C LAB POINT OF CA RE TEST DOCKED DEVICE UNSOLICITED RESULTS [facility] [address] [place] [address] documented in this encounter Visit Diagnoses Diagnosis Urinary incontinence without sensory awareness- Primary Incontinence without sensory awareness documented in this encounter Advance Directives Documents on File Type Date Recorded Patient Picker And Packer Expl anation Power of Insurance Underwriting Assistant 11/29/2019 POWER OF A TTORNEY Care Teams Head Scorer Relationship Specialty Start Date End Date Payam Claire, DO [address] [place] [address] PCP - General Family Medicine 01/14/23 documented as of this encounter
--- OUTSIDE RECORDS SUMMARY | 2023-10-11 02:59 | External Medical Summary ---
Author Name Unknown Address Unknown Organization : Laboratory Report Ordering Provider Test Date Status YAIR MERINO 08/12/2023 14:28:00 Final Observation Date Value Abnormality Reference (Units ) Status Color of Urine by Auto 08/12/2023 14:28:00 Dark Yellow Abnormal Light Yellow, Yellow Final Clarity, Urine 08/12/2023 14:28:00 Clear Clear Final Glucose [Mass/volume] in Urine by Automated test strip 08/12/2023 14:28:00 Negative Negative (mg/dL) Final Bilirubin.total [Presence] in Urine by Automated test strip 08/12/2023 14:28:00 Negative Negative Final Ketones [Mass/volume] in Urine by Automated test strip 08/12/2023 14:28:00 Trace Abnormal Negative (mg/dL) Final Specific gravity, Urine 08/12/2023 14:28:00 >=1.030 1.003-1.030 Final Hemoglobin [Presence] in Urine by Automated test strip 08/12/2023 14:28:00 Moderate Abnormal Negative Final pH, Urine 08/12/2023 14:28:00 6.0 5.0, 5.5, 6.0, 6.5, 7.0, 7.5 (units) Final Protein [Mass/volume] in Urine by Automated test strip 08/12/2023 14:28:00 >=300 Abnormal Negative (mg/dL) Final Urobilinogen, Urine 08/12/2023 14:28:00 2.0 Abnormal 0.2, 1.0 (mg/dL) Final Nitrite [Presence] in Urine by Automated test strip 08/12/2023 14:28:00 Negative Negative Final Leukocyte esterase [Presence] in Urine by Automated test strip 08/12/2023 14:28:00 Negative Negative Final Performing Location
--- OUTSIDE RECORDS SUMMARY | 2023-10-11 02:59 | External Medical Summary | Summary of Care ---
Author Name Unknown Organization [facility] Address [address] [facility] [address] Phone [phone] Care Team Providers Care Esol Teacher Name Role Phone Yasmine Wood DO Primary Care Provider [phone] Reason for Visit * Reason Comments Follow Up Encounter Details Date Type Department Care Team Description 08/15/2023 Office Visit Cardiology, [facility] [address] [place] [address] Deondre Cat MD [address] [place] [address] Chronic kidney disease, stage 3a (HCC)*; Acute on chronic systolic (congestive) heart failure (HCC) Allergies No known active allergiesdocumented as of this encounter (statuses as of 08/15/2023) Medications Medication Sig Dispensed Refills Start Date End Date Status Nitroglycerin 0.4 MG Sublingual Tablet SublingualIndicati ons:Coronary artery disease involving [place] coronary artery of [place] heart without angina pectoris Place 1 Tablet under the tongue every 5 minutes as needed for Pain, Chest. 0 Active Lisinopril 5 MG Oral Tablet (PRINIVIL)Indicati ons:Coronary artery disease involving [place] coronary artery of [place] heart without angina pectoris Take 1 Tablet by mouth in the morning. 0 Active Apixaban 5 MG Oral TabletIndications: Paroxysmal atrial fibrillation (HCC) Take 1 Tablet by mouth in the morning and 1 Tablet before bedtime. 0 Active Clopidogrel Bisulfate 75 MG Oral Tablet (pLAVix)Indication s:Coronary artery disease involving [place] coronary artery of [place] heart without angina pectoris Take 1 Tablet [...] Propionate 50 MCG/ACT Nasal Suspension Administer 1 [place] into nostril in the morning. 0 Active Spironolactone 100 MG Oral Tablet (Aldactone) Take 1 Tablet by mouth in the morning. 0 Active Metoprolol Succinate ER 25 MG Oral Tablet Extended Release 24 Hour (Toprol XL)Indications:Cor onary artery disease involving [place] coronary artery of [place] heart without angina pectoris Take 1 Tab [...] other day 120 Tablet 3 08/15/2023 Active Furosemide 40 MG Oral Tablet (Lasix)Indications :Acute on chronic systolic (congestive) heart failure (HCC) Furosemide 60 mg oral daily with 80 mg one day per week. 0 08/01/2023 3 Discontinue d(Refill) documented as of this encounter (statuses as [...] of stroke Coronary artery disease invo lving [place] coronary artery of [place] heart without angina pectoris Pacemaker AICD (automatic [...] Sign Reading Time Taken Comments Blood Pressure 108/64 08/15/2023 11:15 AM EDT Pulse 72 08/15/2023 11:15 AM EDT Temperature - - Respiratory Rate 16 08/15/2023 11:15 AM EDT Oxygen Saturation - - Inhaled Oxygen Concentration - - Weight 109.8 kg (242 lb) 08/15/2023 11:15 AM EDT Height - - Body Mass Index 29.46 08/29/2021 3:04 PM EDT documented in this encounter Progress Notes * Deondre Cat MD - 08/15/2023 11:22 AM EDT August 15, 2023 Cardiology Follow Up Referring Provider: PCP: [place] [address] Chief Complaint: Increasing edema SUBJECTIVE: Leonidas Troy is a 83 year old year old male with ongoing cardiac issues 1. Dilated ischemic cardiomyopathy, past history of remote myocardial infarction moderate to severeleft ventricular dysfunction 2. Prior multiple coronary interventions 3. Pacer defibrillator implantation , biventricular, Medtronic Viva Quad [id number] 01/27/2017 4. Mitral insufficiency 5. Atrial fibrillation. Long-term persistent 6. Past TIA stroke on chronic anticoagulation 7. Nocturnal hypoxia Patient presents today in close clinical follow-up. Denies specific complaint but has had increase in weight and lower extremity edema. Notes still walking, using exercise bicycle no chest pains or worsening shortness of breath. No tachy palpitations dizziness. Initially declined use of oxygen at night Weight up 7 to 8 lb A Complete Review of Systems is as stated above or negative. Patient Active Problem List Diagnosis Code History of stroke Z86.73 Coronary artery disease involving [place] coronary artery of [place] heart without angina pectoris I25.10 Pacemaker Z95.0 AICD (automatic cardioverter/defibrillator) present Z95.810 Permanent atrial fibrillation (HCC) I48.21 Ischemic cardiomyopathy I25.5 HTN, goal below 130/80 I10 Chronic kidney disease, stage 3a (HCC) N18.31 History of nonmelanoma skin cancer Z85.828 Dyslipidemia E78.5 Review of patient's allergies indicates: No Known Allergies Current Outpatient Medications Medication Sig Dispense Refill [...] (2000 UT) Oral Capsule Take by mouth. Rosuvastatin Calcium 10 MG Oral Tablet (Crestor) Take 1 Tablet by mouth in the morning. Take one daily at bedtime . Fluticasone Propionate 50 MCG/ACT Nasal Suspension Administer 1 [place] into nostril in the morning. FLUoxetine HCl 10 MG Oral Tablet (PROzac) Take 1 Tablet by mouth in the morning. Ferrous Sulfate 325 (65 Fe) MG Oral [...] 1 Capsule by mouth in the morning. Furosemide 40 MG Oral Tablet (Lasix) Furosemide 60 mg oral daily with 80 mg one day per week. Diclofenac Sodium 1 % Transdermal Gel Place topically on the skin 4 times a day. Apply to to back as needed (Patient not taking: Reported on 08/12/2023) Spironolactone 100 MG Oral Tablet (Aldactone) Take 1 Tablet by mouth in the morning. (Patient not taking: Reported on 08/12/2023) Metoprolol Succinate ER 25 MG Oral Tablet Extended Release 24 Hour (Toprol XL) Take 1 Tab by mouth 2 times a day. 180 Tab 3 Ketoconazole 2 % External Cream Apply behind ears twice daily as needed for flares 30 g 0 Ketoconazole 2 % External Shampoo (Nizoral) Apply to scalp and behind ears 2-3 times per week; leave on 3-5 min before rinsing 120 mL 1 Melatonin 3 MG Oral Capsule Take 1 Capsule by mouth at bedtime as needed. (Patient not taking: Reported on 08/15/2023) No current facility-administered medications for this visit. OBJECTIVE/PHYSICAL EXAMINATION: BP 108/64 (BP Cuff Size: Large) | Pulse 72 | Resp 16 | Wt 109.8 kg (242 lb) | BMI 29.46 kg/m | BSA 2.43 m General: Tall age-appropriate male in no acute distress Head: normocephalic, no masses, lesions, tenderness or abnormalities Eyes: conjunctiva are pink and non-injected, sclera clear Throat: clear Nares: without discharge Neck: supple, no adenopathy, no bruits, normal jugular venous pulse, no hepatojugular reflux, no carotid bruits Chest: normal shape and normal respiratory effort Pacemaker defibrillator site without irritation or tenderness Lungs: clear to auscultation and percussion Cardiac Exam: - irregular irregular with grade 1/6 systolic murmur, gallop or rub - normal S-1, normal S-2 Abdomen: abdomen soft, non-tender, no abnormal masses, no hepatosplenomegaly, no abdominal bruit, no femoral bruit Musculoskeletal: no gait disturbance, no joint inflammation, no deforming arthritis Extremities: 2 to 3++ edema lower extremities to mid thigh. no cyanosis, pulses intact 2+/4 Neuro: grossly normal exam Data: EKG June 26, 2023 Atrial fibrillation with ventricular paced rhythm at 75 beats per minute Pacemaker defibrillator interrogation May 15, 2023 Baseline rhythm atrial fibrillation with 88% biventricular pacing estimated battery life 6.5 years ASSESSMENT: 83 year old year old male 1. Acute on chronic decompensated systolic heart failure right greater than left 2.Chronic ischemic cardiomyopathy with reduced ejection fraction PLAN: Lab work today Increase furosemide 80 mg per day x3 days then 80 alternating with 60 mg Recommended strongly patient use oxygen nocturnally CHF instructions and low-sodium diet Discussed with patient if edema worsens or renal function declines may consider inpatient management DISPOSITION: Return 6 week Deondre Cat MD Cardiology, [facility] [address] [facility] [place] [address] I spent a total of 40-54 minutes (exact time 40 mins) on the date of service in preparation, delivery, and documentation of the care provided to Leonidas Troy excluding any time spent in the performance of separately billed services. documented in this encounter Nursing Notes * Sriram Hemphill RN - 08/15/2023 11:14 AM EDT Examination Room: room 14 Name: Leonidas Troy Date of : (1940). Reason for Visit: follow up Interim Hospitalization(s): denies Problems/Concerns: denies Chest Pain/SOB: denies [facility] Discussed: Not applicable [facility] is a way you can talk to your provider online through e-mail. Would you like to sign up? I can activate it for you? ALREADY ACTIVE Patient was instructed to not get up on the exam table until directed and assisted by their provider; patient is to remain seated in the chair/ wheelchair/ exam table for fall prevention and safety reasons. Patient is aware to have assistance to step down off exam table with personnel. Patient voiced full comprehension of instructions. documented in this encounter Plan of Treatment Upcoming Encounters Date Type Specialty Care Team Description 09/26/2023 Office Visit Cardiology Melanie Torres CRNP [address] [place] [address] 10/28/2023 Appointment Radiology 10/28/2023 Procedure Only Urology Garrick Dorman MD [address] [place] [address] 11/18/2023 Cardiac Studies Cardiology [place] [address] [place] [address] 11/21/2023 Office Visit Dermatology Lavonne Herzog PA-C [address] [facility] [place] [place] [address] 02/24/2024 Office Visit Neurology Chicho Steward, DO [address] [place] [address] Health Maintenance Due Date Last Done Comments Albumin/Creatinine Ratio 1957 Zoster Vaccines (1 of 2) 1989 CKD PHOS USE SMARTSET 80660 01/08/2017 01/08/2016 COVID-19 Vaccine (3 - Moderna series) 04/07/2021 02/10/2021, 01/02/2021 Depression Screening 04/11/2022 04/11/2021 Influenza Vaccine (FLU shot) (#1) 2023 09/19/2022, 09/07/2020, 10/01/2019, Additional history exists GFR 02/13/2024 08/15/2023, 07/02, 07/03/2023, Additional history exists CKD HGB USE SMARTSET 90360 06/26/202406/26, 06/26/2023, 10/11/2022, Additional history exists DTaP,Tdap,and [...] mg/dL 08/15/2023 1:02 PM EDT [facility] [place] [facility] Creatinine 1.5(H) 0.6 - 1.2 mg/dL 08/15/2023 1:02 PM EDT [facility] [place] [facility] Estimated Glomerular Filtration Rate 45(L) >=60 mL/min 08/15/2023 1:02 PM EDT [facility] [place] [facility] Comment:eGFR is calculated b ased on the CKD-EPI 2020 equation Sodium 143 135 - 146 mmol/L 08/15/2023 1:02 PM EDT [facility] [place] [facility] Potassium 4.1 3.5 - 5.1 mmol/L 08/15/2023 1:02 PM EDT [facility] [place] [facility] Chloride 109(H) 98 - 107 mmol/L 08/15/2023 1:02 PM EDT [facility] [place] [facility] CO2 26 22 - 32 mmol/L 08/15/2023 1:02 PM EDT [facility] [place] [facility] Anion Gap 8 7 - 15 mmol/L 08/15/2023 1:02 PM EDT [facility] [place] [facility] Glucose 78 70 - 120 mg/dL 08/15/2023 1:02 PM EDT [facility] [place] [facility] Albumin 2.7(L) 3.8 - 5.0 g/dL 08/15/2023 1:02 PM EDT [facility] [place] [facility] AST 30 10 - 50 U/L 08/15/2023 1:02 PM EDT [facility] [place] [facility] Alkaline Phosphatase 93 35 - 130 U/L 08/15/2023 1:02 PM EDT [facility] [place] [facility] Bilirubin, Total 0.3 <=1.2 mg/dL 08/15/2023 1:02 PM EDT [facility] [place] [facility] Calcium 8.8 8.4 - 10.2 mg/dL 08/15/2023 1:02 PM EDT [facility] [place] [facility] Protein 4.7(L) 6.0 - 8.3 g/dL 08/15/2023 1:02 PM EDT [facility] [place] [facility]10 ALT 19 10 - 50 U/L 08/15/2023 1:02 PM EDT [facility] [place] [facility] Blood Venous blood specimen / Unknown Venipuncture / Unknown 08/15/2023 11:48 AM EDT 08/15/2023 11:48 AM EDT Deondre Cat MD LAB BLOOD ORDERABLES [facility] [place] [facility] [place] [address] documented in this encounter Visit Diagnoses Diagnosis Chronic kidney disease, stage 3a (HCC)- Primary Acute on chronic systolic (congestive) heart failure (HCC) documented in this encounter Advance Directives Documents on File Type Date Recorded Patient Audit Manager Expl anation Power of Diamond Sorter 11/29/2019 POWER OF A TTORNEY Care Teams Esol Teacher Relationship Specialty Start Date End Date Yasmine Wood, DO [address] [place] [address] PCP - General Family Medicine 01/14/23 documented as of this encounter"
--- OUTSIDE RECORDS SUMMARY | 2023-10-11 03:00 | External Medical Summary | Summary of Care ---
Author Name Unknown Organization [facility] Address [address] [place] [address] Phone [phone] Care Team Providers Care Radiologic Technologist Chief Name Role Phone Alethea Payam Aline STEINBERG Primary Care Provider [phone] Reason for Visit * Reason Comments Outpatient Testing Encounter Details Date Type Department Care Team Description 07/24/2023 Laboratory Laboratory, [facility] [address] [facility] [place] [address] [facility] [address] [facility] [place] [address] Chronic kidney disease, stage 3a (HCC); Ischemic cardiomyopathy Allergies No known active allergiesdocumented as of this encounter (statuses as of 07/24/2023) Medications Medication Sig Dispensed Refills Start Date End Date Status Nitroglycerin 0.4 MG Sublingual Tablet SublingualIndicatio ns:Coronary artery disease involving alutiiq coronary artery of alutiiq heart without angina pectoris Place 1 Tablet under the tongue every 5 minutes as needed for Pain, Chest. 0 Active Lisinopril 5 MG Oral Tablet (PRINIVIL)Indicatio ns:Coronary artery disease involving alutiiq coronary artery of alutiiq heart without angina pectoris Take 1 Tablet by mouth in the morning. 0 Active Apixaban 5 MG Oral TabletIndications:P aroxysmal atrial fibrillation (HCC) Take 1 Tablet by mouth in the morning and 1 Tablet before bedtime. 0 Active Clopidogrel Bisulfate 75 MG Oral Tablet (pLAVix)Indications :Coronary artery disease involving alutiiq coronary artery of alutiiq heart without angina pectoris Take 1 Tablet [...] Propionate 50 MCG/ACT Nasal Suspension Administer 1 [place] into nostril in the morning. 0 Active Spironolactone 100 MG Oral Tablet (Aldactone) Take 1 Tablet by mouth in the morning. 0 Active Metoprolol Succinate ER 25 MG Oral Tablet Extended Release 24 Hour (Toprol XL)Indications:Tony nary artery disease involving alutiiq coronary artery of alutiiq heart without angina pectoris Take 1 Tab [...] needed. 0 Active Furosemide 40 MG Oral TabletIndications:A cute on chronic systolic (congestive) heart failure (HCC) Take 80 mg by mouth 3 days per week and 60 mg by mouth all other days of the week. 90 Tablet 3 07/03/2023 Active Cephalexin 500 MG Oral Capsule (Keflex) Take 1 Capsule by mouth in the morning and 1 Capsule before bedtime. 0 07/21/2023 07/31/2023 Active documented as of this encounter (statuses as of 07/24/2023) Active Problems Problem Noted Date Dyslipidemia 01/13/2023 History of nonmelanoma skin cancer 12/22 Overview: Hx of BCC R helix s/p Mohs 2021,BCC L shoulder 2021, BCC R posterior neck 2021,NMSC lower lip years ago (no records) Chronic kidney disease, stage 3a 022 Overview: Per CKD protocol Ischemic cardiomyopathy 01/31/2021 HTN, goal below 130/80 01/31/2021 History of stroke Coronary artery disease invo lving alutiiq coronary artery of alutiiq heart without angina pectoris Pacemaker AICD (automatic cardioverter/defibrillat or) present Permanent atrial fibrillation documented as of this encounter (statuses as of 07/24/2023) Resolved Problems Problem Noted Date Resolved Date Dyslipidemia, goal LDL below 70 01/31/2021 01/13/2023 documented as of this encounter (statuses as of 07/24/2023) Immunizations Name Administration Dates Next Due COVID-19 [...] Encounters Date Type Specialty Care Team Description 08/12/2023 Office Visit [facility]rology [facility]C [address] [facility] [address] 08/15/2023 Office Visit Cardiology Deondre Cat MD [address] [place] [address] 11/18/2023 [facility] [address] [place] [address] 11/21/2023 [facility] [address] [facility] [address] 02/24/2024 Office Visit Neurology Chicho Steward, DO [address] [place] [address] Pending Results Name Type Priority Associated Diagnoses Date /Time BASIC METABOLIC PANEL Lab Routine Chronic kidney disease, stage 3a (HCC) Ischemic cardiomyopathy 07/24/2023 11:04 AM EDT Health Maintenance Due Date Last Done Comments Albumin/Creatinine Ratio 1958 Zoster Vaccines (1 of 2) 1989 CKD PHOS USE SMARTSET 26817 01/08/2017 01/08/2016 COVID-19 Vaccine (3 - Moderna series) 04/07/2021 02/10/2021, 01/02/2021 Depression Screening, Annual for Pts 12 and Over 04/11/2022 04/11/2021 Influenza Vaccine (FLU shot) (#1) 2023 09/19/2022, 09/07/2020, 10/01/2019, Additional history exists GFR 01/03/2024 07/03/2023, 06/01, 12/18/2022, Additional history exists CKD HGB USE SMARTSET 90581 06/26/202406/26, 06/26/2023, 10/11/2022, Additional history exists DTaP,Tdap,and [...] as of this encounter Visit Diagnoses Diagnosis Chronic kidney disease, stage 3a (HCC) Ischemic cardiomyopathy Other specified forms of chronic ischemic heart disease documented in this encounter Advance Directives Documents on File Type Date Recorded Patient Garbage Truck Helper Expl anation Power of Electrical Maintenance Mechanic 11/29/2019 POWER OF A TTORNEY Care Teams Radiologic Technologist Chief Relationship Specialty Start Date End Date Payam Claire, DO [address] [place] [address] PCP - General Family Medicine 01/14/23 documented as of this encounter
--- OUTSIDE RECORDS SUMMARY | 2023-10-11 03:00 | External Medical Summary | Summary of Care ---
Author Name Unknown Organization [facility] Address [address] [place] [address] Phone [phone] Care Team Providers Care Decorator Consultant Name Role Phone Payam Claire DO Primary Care Provider [phone] Encounter Details Date Type Department Care Team Description 07/17/2023 Result Scan Unspecified Department Deondre Cat MD [address] [place] [address] <No scans attached> Allergies No known active allergiesdocumented as of this encounter (statuses as of 08/01/2023) Medications Medication Sig Dispensed Refills Start Date End Date Status Nitroglycerin 0.4 MG Sublingual Tablet SublingualIndications :Coronary artery disease involving qagan tayagungin coronary artery of qagan [place]agung[place] heart without angina pectoris Place 1 Tablet under the tongue every 5 minutes as needed for Pain, Chest. 0 Active Lisinopril 5 MG Oral Tablet (PRINIVIL)Indications :Coronary artery disease involving qagan t[place] coronary artery of qagan [place] heart without angina pectoris Take 1 Tablet by mouth in the morning. 0 Active Apixaban 5 MG Oral TabletIndications:Par oxysmal atrial fibrillation (HCC) Take 1 Tablet by mouth in the morning and 1 Tablet before bedtime. 0 Active Clopidogrel Bisulfate 75 MG Oral Tablet (pLAVix)Indications:C oronary artery disease involving qagan tayagungin coronary artery of qagan [place] heart without angina pectoris Take 1 Tablet [...] Propionate 50 MCG/ACT Nasal Suspension Administer 1 [place] into nostril in the morning. 0 Active Spironolactone 100 MG Oral Tablet (Aldactone) Take 1 Tablet by mouth in the morning. 0 Active Metoprolol Succinate ER 25 MG Oral Tablet Extended Release 24 Hour (Toprol XL)Indications:Swift ry artery disease involving qagan tayagungin coronary artery of qagan tayagung[place] heart without angina pectoris Take 1 Tab [...] mouth at bedtime as needed. 0 Active documented as of this encounter (statuses as of 08/01/2023) Active Problems Problem Noted Date Dyslipidemia 01/13/2023 History of nonmelanoma skin cancer 12/22 Overview: Hx of BCC R helix s/p Mohs 2021,BCC L shoulder 2021, BCC R posterior neck 2021,NMSC lower lip years ago (no records) Chronic kidney disease, stage 3a 022 Overview: Per CKD protocol Ischemic cardiomyopathy 01/31/2021 HTN, goal below 130/80 01/31/2021 History of stroke Coronary artery disease invo lving qagan tayagungin coronary artery of qagan tayagung[place] heart without angina pectoris Pacemaker AICD (automatic cardioverter/defibrillat or) present Permanent atrial fibrillation documented as of this encounter (statuses as of 08/01/2023) Resolved Problems Problem Noted Date Resolved Date Dyslipidemia, goal LDL below 70 01/31/2021 01/13/2023 documented as of this encounter (statuses as of 08/01/2023) Immunizations Name Administration Dates Next Due COVID-19 [...] Visit Urology Maddy Paris PA-C [address] [place] [facility] [place] [address] 08/15/2023 Office Visit Cardiology Deondre Cat MD [address] [place] [address] 11/18/2023 [facility] [address] [place] [address] 11/21/2023 Office Visit Dermatology Lavonne Herzog PA-C [address] [facility] [place] [address] 02/24/2024 Office Visit Neurology Chicho Steward, DO [address] [facility] [place] [address] Health Maintenance Due Date Last Done Comments Albumin/Creatinine Ratio 1957 Zoster Vaccines (1 of 2) 1989 CKD PHOS USE SMARTSET 49744 01/08/2017 01/08/2016 COVID-19 Vaccine (3 - Moderna series) 04/07/2021 02/10/2021, 01/02/2021 Depression Screening, Annual for Pts 12 and Over 04/11/2022 04/11/2021 Influenza Vaccine (FLU shot) (#1) 2023 09/19/2022, 09/07/2020, 10/01/2019, Additional history exists GFR 01/24/2024 07/24/2023, 08/0 01/2023, 06/26/2023, Additional history exists CKD HGB USE SMARTSET 54478 06/26/202406/26, 06/26/2023, 10/11/2022, Additional history exists DTaP,Tdap,and [...] Procedure Name Priority Date/Time Associated Diagnosis Comments PROCEDURE SCANNED RESULT 07/17/2023 documented in this encounter Results * PROCEDURE SCANNED RESULT (07/17/2023) 07/17/2023 Deondre Cat MD SURGERY documented in this encounter Advance Directives Documents on File Type Date Recorded Patient Peer Health Promoter Expl anation Power of Electronics Warfare Technician 11/29/2019 POWER OF A TTORNEY Care Teams Decorator Consultant Relationship Specialty Start Date End Date Payam Claire, DO [address] [facility] [place] [address] PCP - General Family Medicine 01/14/23 documented as of this encounter
== END 2023-10-08 14:27 | disposition home or self-care (01) | DRG 71 ==
LOC: ED 10:25 → 2S 15:34 → SUATTDRO 15:34 → 2S 16:37

== ENCOUNTER 2024-03-12 10:47 | Inpatient (IN) ==
--- NOTE | 2024-03-12 11:13 | Emergency Department Note ---
Impression & Plan AMS (altered mental status), CKD (chronic kidney disease), Weakness, Falls, Swelling ED Provider Note Provider: Omero Gallagher MD DATE OF SERVICE: 03/12/2024 CHIEF COMPLAINT: Fever, or confusion HISTORY OF PRESENT ILLNESS: Patient is a 83-year-old gentleman history of DVT, stroke, dementia, CKD and heart failure presenting here today via ambulance from [facility] where he resides. According to EMS patient was recently placed on hospice several days ago but was noted to be more confused today and have increased swelling and fever. Sent here for evaluation. Patient himself denies pain. Provide significant history recent events or medication has kidney issues. Patient's son later arrives provide additional history. Patient evidently did fall out of bed last night according to what the son knows from facility reported. 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 Patient was recently placed on hospice but they are still considering possible dialysis for the patient. Son notes increased swelling of the legs some as well as increased swelling newly to the right face. Patient has had some bruising to the low back by son's report but he is unsure if this is worse. Son reports the patient is more confused than normal today and normally is fairly clear according to him. PAST MEDICAL HISTORY: As noted above MEDICATIONS: Reviewed home medications SOCIAL HISTORY: Resides at [facility] nursing facility PHYSICAL EXAM: GENERAL: alert in no acute distress on stretcher, not a good historian to recent events but does know his name. Does not remember he has kidney disease Head: Atraumatic but with swelling of the right cheek noted without significant erythema or wound. EYES: No injection, discharge or icterus. PERRL, EOMI. NECK: Trachea midline. Supple Without significant midline tenderness. ENT: Mucous membranes pink and moist. No intraoral bleeding noted. LUNGS: Airway patent. No retractions. Breath sounds clear with good air entry bilaterally. HEART: Regular rate and rhythm. No chest wall tenderness ABDOMEN: Soft and non-tender, without guarding or rebound. No bilateral flank tenderness. SKIN: Acyanotic, warm, dry extensive subacute contusion noted to the right flank and low back region. EXTREMITIES: 2-3+ edema of the bilateral lower extremities with some slight erythema. No large open wounds noted. NEUROLOGICAL: No focal deficits. No aphasia. No facial droop or slurred speech. EK bpm ventricular paced rhythm rare PVC. No acute ST segment elevation with interventricular conduction delay consistent with pacing. QTc 567. Nonspecific anterior T wave inversions noted. CONTINUOUS CARDIAC MONITORING: was ordered and showed a heart rate of 70s-80s bpm in ventricular paced rhythm with rare PVC Patient's laboratory studies and imaging reviewed. Differential includes Infection, dehydration, metabolic abnormality, hypo/hyperglycemia, electrolyte disturbance, anemia, hypoxia, cardiac sources, intracerebral event, toxicologic, neurologic, as well as other pathologies. IMPRESSION/MEDICAL DECISION MAKING: Case management assistance reviewed prior nephrology note in the [employer] system. Patient with a significant history of CAD hypertension atrial fibrillation on Eliquis, heart failure, vascular dementia, and primary membranous nephropathy. While hospice status it sounds as if family are still waiting for full workup and considering dialysis. Does have some swelling to the right face as well as swelling to the legs. Fever reported earlier but afebrile upon arrival here. Respiratory viral panel sent. No significant cytosis with moderate anemia of 8.6. Macrocytic anemia. Hemoglobin outpatient recently 9.1. Creatinine 2.59 with a BUN of 44 appears similar according to available [facility] records to recent outpatient blood work. Troponin elevated 101 but decreased from previous in our system and likely chronic related to his CKD. Do not feel his BUN is elevated enough for uremia to explain any confusion. Not hypoxic here and doubt hypercarbia. Given the fall and contusion CT of the head, cervical spine, and abdomen pelvis without contrast were completed. Evidence of some effusion in the right lung base with subcutaneous hematomas and contusions to the right mid to low back. No significant intra-abdominal bleeding noted. CT report indicated atelectasis in the right lung base as noted in the abdominal CT. No leukocytosis and lower suspicion for pneumonia given the report of some fever prior to arrival will cover with 1 dose of ceftriaxone in case there is any occult pneumonia here. Son does report he had some waxing waning mentation in the past. Unsure if this is why he is more confused today. Low suspicion for acute CVA at this time. Discussion with son will bring in for further evaluation. May benefit from some further diuresis if his kidneys tolerated but will leave this to possible discussion with hospitalist team and or logistics project manager. 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 Permanent atrial fibrillation HLD (hyperlipidemia) HTN (hypertension) CAD (coronary artery disease) History of ischemic cardiomyopathy Hematuria Generalized weakness COVID-19 Surgical History AICD (automatic cardioverter/defibrillator) present Status post biventricular pacemaker and defib Family History Other Family history non-contributory Social History Smoking Status: Never smoker Second Hand Exposure: No; Do You Dip or Chew Tobacco: No; Hx Alcohol Use: No Hx Substance Use: No Preferred Language: Citizen Of [place] Communication Ability: Impaired Cafeteria Associate Required: No Beliefs That Will Affect Care: None Current Living Situation: Personal Care Facility [facility] Feels Safe at Home: Yes Assistive Devices: Cane and Walker Allergies Allergies Allergy/AdvReac Type Severity Reaction Status Date / Time No Known Allergies Allergy Unverified 10/06/23 15:42 Home Meds Home Medications Medication Instructions Recorded Confirmed apixaban 5 mg tablet (Eliquis) 5 mg PO BID 08/09/22 03/12/24 cholecalciferol (vitamin D3) 50 4,000 unit PO DAILY 08/09/22 03/12/24 mcg (2,000 unit) tablet (Vitamin D3) clopidogrel 75 mg tablet 75 mg PO DAILY 08/09/22 03/12/24 fluoxetine 10 mg capsule 10 mg PO DAILY 08/09/22 03/12/24 fluticasone propionate 50 1 spray intranasal BID 08/09/22 03/12/24 mcg/actuation nasal spray,suspension ketoconazole 2 % topical cream 1 applic topical BID PRN flares 08/09/22 03/12/24 metoprolol succinate 25 mg 12.5 mg PO HS 08/09/22 03/12/24 tablet,extended release 24 hr nitroglycerin 0.4 mg sublingual 0.4 mg sublingual UD PRN Chest Pain 08/09/22 03/12/24 tablet rosuvastatin 10 mg tablet 10 mg PO HS 08/09/22 03/12/24 acetaminophen 500 mg tablet 1,000 mg PO BID 09/23/23 03/12/24 (Tylenol Extra Strength) docusate sodium 100 mg capsule 100 mg PO DAILY 09/23/23 03/12/24 (Colace) loratadine 10 mg tablet 10 mg PO DAILY 09/23/23 03/12/24 acetaminophen 325 mg tablet 650 mg PO Q4 PRN Fever Or Pain 10/06/23 03/12/24 guaifenesin 400 mg tablet 400 mg PO Q6 PRN congestion/cough 10/06/23 03/12/24 ketoconazole 2 % shampoo 1 ea topical 3XWK 10/06/23 03/12/24 melatonin 3 mg tablet 3 mg PO HS PRN Insomnia 10/06/23 03/12/24 sulfamethoxazole 800 1 tab PO MOWEFR 10/06/23 03/12/24 mg-trimethoprim 160 mg tablet potassium chloride 20 mEq 20 meq PO TID 03/12/24 03/12/24 tablet,extended release(part/cryst) tacrolimus 1 mg capsule, 2 mg PO BID 03/12/24 03/12/24 immediate-release torsemide 20 mg tablet 40 mg PO DAILY PRN weight gain 03/12/24 03/12/24 >3lbs torsemide 20 mg tablet 60 mg PO BID 03/12/24 03/12/24 Results & Data (ED) Vital Signs Vital Signs - 24 hr 03/12/24 10:53 03/12/24 11:03 03/12/24 11:29 Temperature 37.2 C Temperature Source Oral Pulse Rate 85 81 75 Respiratory Rate 16 17 20 Respiratory Effort / Characteristics Non-Labored Spontaneous Respiratory Depth Normal Blood Pressure 142/76 H 97/77 L Blood Pressure Mean 98 83 Pulse Oximetry 94 93 95 Oxygen Delivery Method Room Air Room Air Sepsis Recent Fever Within 48 Hours No Sepsis New/Unexplained Change in Mental Status No Sepsis Action Taken by Nursing No Action Required 03/12/24 11:30 03/12/24 11:58 03/12/24 12:30 Temperature Temperature Source Pulse Rate 78 83 77 Respiratory Rate 17 15 Respiratory Effort / Characteristics Respiratory Depth Blood Pressure 126/76 136/92 Blood Pressure Mean 92 106 Pulse Oximetry 94 Oxygen Delivery Method Sepsis Recent Fever Within 48 Hours Sepsis New/Unexplained Change in Mental Status Sepsis Action Taken by Nursing 03/12/24 13:00 03/12/24 13:30 03/12/24 14:00 Temperature Temperature Source Pulse Rate 76 79 77 Respiratory Rate 16 16 16 Respiratory Effort / Characteristics Respiratory Depth Blood Pressure 141/91 H 140/79 146/86 H Blood Pressure Mean 107 99 106 Pulse Oximetry 94 94 Oxygen Delivery Method Sepsis Recent Fever Within 48 Hours Sepsis New/Unexplained Change in Mental Status Sepsis Action Taken by Nursing 03/12/24 14:10 Temperature Temperature Source Pulse Rate 80 Respiratory Rate 16 Respiratory Effort / Characteristics Respiratory Depth Blood Pressure Blood Pressure Mean Pulse Oximetry Oxygen Delivery Method Sepsis Recent Fever Within 48 Hours Sepsis New/Unexplained Change in Mental Status Sepsis Action Taken by Nursing Laboratory Data 03/12/24 11:00 03/12/24 11:00 Lab Results 03/12/24 03/12/24 03/12/24 Range/Units 11:00 11:26 12:46 WBC 3.89 L (4.8-10.8) K/ul RBC 2.47 L (4.70-6.10) M/uL Hgb 8.6 L (14.0-18.0) g/dl Hct 26.3 L (42.0-52.0) % MCV 106.5 H (80.0-100.0) fL MCH 34.8 H (25.0-34.0) pg MCHC 32.7 (32.0-36.0) g/dL RDW Std Deviation 55.7 H (36.4-46.3) fL RDW Coeff of Tucker 14.5 (11.5-14.5) % Plt Count 99 L (130-400) K/uL MPV 10.5 (9.4-12.4) fL Immature Gran % (Auto) 0.5 % Neut % (Auto) 69.9 % Lymph % (Auto) 16.5 % [place] % (Auto) 11.6 % Eos % (Auto) 1.0 % Baso % (Auto) 0.5 % Neut # (Auto) 2.72 (1.40-6.50) K/uL Lymph # (Auto) 0.64 L (1.20-3.40) K/uL [place] # (Auto) 0.45 (0.11-0.59) K/uL Eos # (Auto) 0.04 (0.00-0.50) K/uL Baso # (Auto) 0.02 (0.00-0.20) K/uL Immature Gran # (Auto) 0.02 (0.01-0.20) K/uL PT Cancelled 12.8 H INR Cancelled 1.2 H Sodium 140 (136-145) mmol/L Potassium 4.2 (3.5-5.1) mmol/L Chloride 111 H (98-107) mmol/L Carbon Dioxide 24 (21-32) mmol/L Anion Gap 5 (3-11) BUN 44 H (6-23) mg/dl Creatinine 2.59 H (0.6-1.4) mg/dl Est Cr Clr Drug Dosing 29.2 ml/min Est GFR ( Amer) 25.2 ml/min Est GFR (Non-Af Amer) 21.8 ml/min BUN/Creatinine Ratio 17.0 (10-20) Glucose 100 H (70-99(Fasting)) mg/dl Lactate 1.2 (0.4-2.0) mmol/L Calcium 8.8 (8.6-10.3) mg/dl Magnesium 1.9 (1.7-2.4) mg/dl Total Bilirubin 0.8 (0.2-1.0) mg/dl AST 28 (13-39) U/L ALT 13 (7-52) U/L Alkaline Phosphatase 78 (34-104) U/L Troponin I High Sens 101.5 H* (0-20) pg/ml Total Protein 5.1 L (6.0-8.3) gm/dl Albumin 2.8 L (3.4-5.0) gm/dl Globulin 2.3 L (2.5-4.0) gm/dl Albumin/Globulin Ratio 1.2 (0.9-2) Procalcitonin (0-0.5) ng/ml TSH 0.768 (0.300-4.500) uIu/ml Adenovirus (PCR) (NotDetected) B. pertussis DNA (PCR) (NotDetected) B.parapertussis DNA PCR (NotDetected) C. pneumoniae DNA (PCR) (NotDetected) Coronavirus OC43 (PCR) (NotDetected) Coronavirus HKU1 (PCR) (NotDetected) Coronavirus 229E (PCR) (NotDetected) SARS-CoV-2 (PCR) (NotDetected) Coronavirus NL63 (PCR) (NotDetected) Human Metapneumovir PCR (NotDetected) Influenza Type A (PCR) (NotDetected) Influenza Type B (PCR) (NotDetected) M. pneumoniae (PCR) (NotDetected) Parainfluenza 1 (PCR) (NotDetected) Parainfluenza 2 (PCR) (NotDetected) Parainfluenza 3 (PCR) (NotDetected) Parainfluenza 4 (PCR) (NotDetected) RSV (PCR) (NotDetected) Entero/Rhino (PCR) (NotDetected) 03/12/24 03/12/24 03/12/24 Range/Units 12:47 12:49 14:48 WBC (4.8-10.8) K/ul RBC (4.70-6.10) M/uL Hgb (14.0-18.0) g/dl Hct (42.0-52.0) % MCV (80.0-100.0) fL MCH (25.0-34.0) pg MCHC (32.0-36.0) g/dL RDW Std Deviation (36.4-46.3) fL RDW Coeff of Tucker (11.5-14.5) % Plt Count (130-400) K/uL MPV (9.4-12.4) fL Immature Gran % (Auto) % Neut % (Auto) % Lymph % (Auto) % [place] % (Auto) % Eos % (Auto) % Baso % (Auto) % Neut # (Auto) (1.40-6.50) K/uL Lymph # (Auto) (1.20-3.40) K/uL [place] # (Auto) (0.11-0.59) K/uL Eos # (Auto) (0.00-0.50) K/uL Baso # (Auto) (0.00-0.20) K/uL Immature Gran # (Auto) (0.01-0.20) K/uL PT INR Sodium (136-145) mmol/L Potassium (3.5-5.1) mmol/L Chloride (98-107) mmol/L Carbon Dioxide (21-32) mmol/L Anion Gap (3-11) BUN (6-23) mg/dl Creatinine (0.6-1.4) mg/dl Est Cr Clr Drug Dosing ml/min Est GFR ( Amer) ml/min Est GFR (Non-Af Amer) ml/min BUN/Creatinine Ratio (10-20) Glucose (70-99(Fasting)) mg/dl Lactate (0.4-2.0) mmol/L Calcium (8.6-10.3) mg/dl Magnesium (1.7-2.4) mg/dl Total Bilirubin (0.2-1.0) mg/dl AST (13-39) U/L ALT (7-52) U/L Alkaline Phosphatase (34-104) U/L Troponin I High Sens 107.5 H* (0-20) pg/ml Total Protein (6.0-8.3) gm/dl Albumin (3.4-5.0) gm/dl Globulin (2.5-4.0) gm/dl Albumin/Globulin Ratio (0.9-2) Procalcitonin 0.15 (0-0.5) ng/ml TSH (0.300-4.500) uIu/ml Adenovirus (PCR) Not Detected (NotDetected) B. pertussis DNA (PCR) Not Detected (NotDetected) B.parapertussis DNA PCR Not Detected (NotDetected) C. pneumoniae DNA (PCR) Not Detected (NotDetected) Coronavirus OC43 (PCR) Not Detected (NotDetected) Coronavirus HKU1 (PCR) Not Detected (NotDetected) Coronavirus 229E (PCR) Not Detected (NotDetected) SARS-CoV-2 (PCR) Not Detected (NotDetected) Coronavirus NL63 (PCR) Not Detected (NotDetected) Human Metapneumovir PCR Not Detected (NotDetected) Influenza Type A (PCR) Not Detected (NotDetected) Influenza Type B (PCR) Not Detected (NotDetected) M. pneumoniae (PCR) Not Detected (NotDetected) Parainfluenza 1 (PCR) Not Detected (NotDetected) Parainfluenza 2 (PCR) Not Detected (NotDetected) Parainfluenza 3 (PCR) DETECTED A (NotDetected) Parainfluenza 4 (PCR) Not Detected (NotDetected) RSV (PCR) Not Detected (NotDetected) Entero/Rhino (PCR) Not Detected (NotDetected) Administered Medications Discontinued Medications Ceftriaxone Sodium (Rocephin) 2,000 mg in 50 mls @ 100 mls/hr IV NOW STA Stop: 03/12/24 13:54 Last Infusion: 03/12/24 14:36 Dose: Infused Documented By: Admin: 03/12/24 13:59 Dose: 100 mls/hr Documented By: CPB Imaging Data Radiologist's Impression: Chest X-Ray 03/12/24 10:59 XR chest 1V portable HISTORY: 83 years-old Male weakness acute weakness COMPARISON: 10/06/2023 TECHNIQUE: AP view of the chest FINDINGS: Cardiac silhouette is enlarged. Left subclavian pacer/AICD. Pulmonary vascular congestion with interstitial coarsening. Trace left and small right pleural effusions with right basilar predominant consolidation. Degenerative changes of the shoulders and spine. IMPRESSION: 1. Cardiomegaly with pulmonary edema and small right pleural effusion. 3. Right greater than left bibasilar opacities may represent asymmetric atelectasis versus pneumonia. ACT 112: Negative or not required by law. The above report was generated using voice recognition software. It may contain grammatical, syntax or spelling errors. Electronically signed by: Tin Smith M.D. 03/12/2024 12:13 PM Abdomen/Pelvis CT 03/12/24 11:[address] WITHOUT CONTRAST CT DOSE: HISTORY: falls, CKD, R flank to back contusion TECHNIQUE: Multiaxial CT images of the abdomen and pelvis were performed without contrast. A dose lowering technique was utilized adhering to the principles of ALARA. COMPARISON STUDY: Abdomen and pelvis CT 08/09/2022. FINDINGS: There is a small right pleural effusion which has increased in size. The heart is enlarged. Pacemaker wires are noted. Right basilar linear densities favor subsegmental atelectasis. A pneumonitis could also have a similar appearance. Mild dependent changes seen within the left lung base. No pneumoperitoneum. No pneumatosis. There are old, healed right-sided rib fractures. No acute fractures identified. Mild body wall edema. Prior left inguinal hernia repair. Thickening and edema within the right gluteus kylie muscle. There may be a small intramuscular hematoma within the lower aspect of the right gluteus kylie muscle. Subcutaneous contusion within the right lumbar region. There is also a right lumbar subcutaneous hematoma best seen on image 216 measuring 10.6 x 3.1 cm. There are few additional smaller subcutaneous hematoma within the right lumbar region. The unenhanced liver, gallbladder, spleen, pancreas, and adrenal glands are unremarkable. A few small bilateral renal hypodense lesions are incompletely characterized on this noncontrast study but favor cysts. These are similar to the prior study. No hydronephrosis. No retroperitoneal hematoma or lymphadenopathy. There is again noted a 5.8 x 5.1 cm infrarenal abdominal aortic aneurysm. This has increased in size in the interval, previously measuring 4.5 cm. Mild bladder wall thickening with a few small bladder diverticula at the bladder dome again noted. This is likely due to chronic outlet obstruction from the enlarged prostate gland. No pelvic free fluid or pelvic lymphadenopathy. Colonic diverticulosis. No evidence for acute diverticulitis. No bowel wall thickening or obstruction. IMPRESSION: 1. There are few subcutaneous hematomas within the right lumbar region with the largest measuring 10.6 x 3.1 cm. 2. Thickening and edema within the right gluteus kylie muscle. There may be a small intramuscular hematoma within the lower aspect of the right gluteus kylie muscle. 3. No acute fractures within the abdomen or pelvis. 4. Small right pleural effusion which is increased in size. 5. Increase in size in the now 5.8 x 5.1 cm infrarenal abdominal aortic aneurysm. 6. Additional findings as described above. ACT 112: Negative or not required by law. Electronically signed by: Boy Gomez M.D. 03/12/2024 12:[address] 03/12/24 11:47 CT cervical spine wo con CLINICAL HISTORY: falls TECHNIQUE: Multidetector row helical CT of the cervical spine was performed without administration of intravenous contrast. Coronal and sagittal reformations were obtained. Automated dose lowering techniques and/or adjustment according to patient size were utilized for this exam. Comparison: None available at the time of this dictation. FINDINGS: No acute fractures or subluxations are identified. Degenerative changes are seen in the visualized spine. The alignment is normal. A large right thyroid nodule is seen measuring up to 38 mm in diameter. IMPRESSION: 1. Degenerative changes without evidence of acute bony injury. 2. Large thyroid nodules are seen. If not previously evaluated, nonemergent thyroid ultrasound can be performed. ACT 112: Positive. There are findings on this exam that require communication between the performing entity and the patient following Patient Test Result Information Act ([place] Act 112) guidelines. Electronically signed by: Jc Coyle M.D. 03/12/2024 12:[address] 03/12/24 11:[address] DOSE: HISTORY: falls, r face swelling TECHNIQUE: Multiaxial CT images of the head were performed without the use of intravenous contrast. Automated exposure control was utilized for this study. A dose lowering technique was utilized adhering to the principles of ALARA. Comparison: Head CT 10/06/2023. Findings: Retention cyst within the right maxillary sinus. Mild mucosal thickening within the ethmoid air cells. The mastoid air cells are clear. Right facial and frontal scalp swelling. Mild motion artifact. The calvarium and skull base are intact. There is no mass, hematoma, midline shift, acute infarct. White matter hypodensity is nonspecific but suggestive of microvascular ischemic change. The ventricles and sulci demonstrate mild age-related involutional changes. Old infarcts again noted within the cerebellar hemispheres, left basal ganglia, and right posterior temporal lobe. Impression: 1. No acute infarct or intracranial hemorrhage. 2. Old infarcts again noted. ACT 112: Negative or not required by law. Electronically signed by: Boy Gomez M.D. 03/12/2024 12:51 PM Discharge Plan Visit Data Chief Complaint: Altered Mental Status Stated Complaint: AMS, ED Provider: Omero Gallagher Discharge Problem: AMS (altered mental status), CKD (chronic kidney disease), Weakness, Falls, Swelling Patient Disposition: Admitted As Inpatient Discharge Instructions Interventions: ED Discharge Assessment Last Done: 03/12/24 15:44 Forms Stand Alone Forms: [facility] Unified Color Prescriptions Prescriptions: No Action acetaminophen [Tylenol Extra Strength] 500 mg Tablet 1,000 mg PO BID docusate sodium [Colace] 100 mg Capsule 100 mg PO DAILY loratadine 10 mg Tablet 10 mg PO DAILY clopidogrel 75 mg tablet 75 mg PO DAILY fluoxetine 10 mg capsule 10 mg PO DAILY fluticasone propionate 50 mcg/actuation spray,suspension 1 spray INTRANASAL BID Eliquis 5 mg tablet 5 mg PO BID nitroglycerin 0.4 mg tablet, sublingual 0.4 mg sublingual UD PRN (Reason: Chest Pain) Rx Instructions: 1 tab under tongue every 5 min for 3 doses as needed for chest pain,if no relief call ketoconazole 2 % cream 1 applic TOPICAL BID PRN (Reason: flares) Rx Instructions: apply to behind ears as needed for seborrheic dernatitis flares metoprolol succinate 25 mg tablet extended release 24 hr 12.5 mg PO HS rosuvastatin 10 mg tablet 10 mg PO HS cholecalciferol (vitamin D3) [Vitamin D3] 50 mcg (2,000 unit) Tablet 4,000 unit PO DAILY acetaminophen 325 mg Tablet 650 mg PO Q4 MDD 3g PRN (Reason: Fever Or Pain) melatonin 3 mg Tablet 3 mg PO HS PRN (Reason: Insomnia) guaifenesin 400 mg Tablet 400 mg PO Q6 PRN (Reason: congestion/cough) ketoconazole 2 % Shampoo 1 ea TOPICAL 3XWK Rx Instructions: apply topically to scalp and behind ears 2-3 times per week. leave on 3-5 minutes before rinsing sulfamethoxazole-trimethoprim 800-160 mg tablet 1 tab PO MOWEFR torsemide 20 mg Tablet 40 mg PO DAILY PRN (Reason: weight gain >3lbs ) tacrolimus 1 mg Capsule 2 mg PO BID torsemide 20 mg tablet 60 mg PO BID potassium chloride 20 mEq tablet,ER particles/crystals 20 meq PO TID Referrals Referrals: Payam Claire DO [Primary Care Provider] -
[2024-03-12 11:33] LABS: Basophils # (auto) 0.02 K/uL (0.00-0.20); Basophils % (auto) 0.5 %; Eosinophils # (auto) 0.04 K/uL (0.00-0.50); Hematocrit (blood only) 26.3 % (42.0-52.0); Hemoglobin 8.6 g/dl (14.0-18.0); Immature Granulocytes # (auto) 0.02 K/uL (0.01-0.20); Immature Granulocytes % (auto) 0.5 %; Lymphocytes # (auto) 0.64 K/uL (1.20-3.40); Lymphocytes % (auto) 16.5 %; Mean Corpuscular Hemoglobin 34.8 pg (25.0-34.0); Mean Corpuscular Hgb Conc 32.7 g/dL (32.0-36.0); Mean Corpuscular Volume 106.5 fL (80.0-100.0); Mean Platelet Volume 10.5 fL (9.4-12.4); Monocytes # (auto) 0.45 K/uL (0.11-0.59); Monocytes % (auto) 11.6 %; Neutrophils # (auto) 2.72 K/uL (1.40-6.50); Neutrophils % (auto) 69.9 %; Platelet Count 99 K/uL (130-400); RDW Coefficient of Variation 14.5 % (11.5-14.5); RDW Standard Deviation 55.7 fL (36.4-46.3); Red Blood Count 2.47 M/uL (4.70-6.10); White Blood Count 3.89 K/ul (4.8-10.8)
[2024-03-12 11:50] LABS: Albumin Globulin Ratio 1.2 (0.9-2); Albumin Level 2.8 gm/dl (3.4-5.0); Bilirubin,Total 0.8 mg/dl (0.2-1.0); Calcium 8.8 mg/dl (8.6-10.3); Creatinine Clr Calc Pharmacy 29.2 ml/min; Est GFR (African American) 25.2 ml/min; Est GFR (Non-African American) 21.8 ml/min; Globulin 2.3 gm/dl (2.5-4.0); Magnesium 1.9 mg/dl (1.7-2.4); Potassium 4.2 mmol/L (3.5-5.1); Total Protein 5.1 gm/dl (6.0-8.3)
[2024-03-12 12:01] LABS: Troponin I High Sensitivity 101.5 pg/ml (0-20)
[2024-03-12 12:05] LABS: Thyroid Stimulating Hormone 0.768 uIu/ml (0.300-4.500)
--- NOTE | 2024-03-12 12:14 | XRay Report ---
XR chest 1V portable HISTORY: 83 years-old Male weakness acute weakness COMPARISON: 10/06/2023 TECHNIQUE: AP view of the chest FINDINGS: Cardiac silhouette is enlarged. Left subclavian pacer/AICD. Pulmonary vascular congestion with inters titial coarsening. Trace left and small right pleural effusions with right basilar predominant consol idation. Degenerative changes of the shoulders and spine. IMPRESSION: 1. Cardiomegaly with pulmonary edema and small right pleural effusion. 3. Right greater than left bibasilar opacities may represent asymmetric atelectasis versus pneumonia. ACT 112: Negative or not required by law. The above report was generated using voice recognition software. It may contain grammatical, syntax o r spelling errors. Electronically signed by: Tin Smith M.D. 03/12/2024 12:13 PM
--- NOTE | 2024-03-12 12:26 | CT Scan Report ---
CT cervical spine wo con CLINICAL HISTORY: falls TECHNIQUE: Multidetector row helical CT of the cervical spine was performed without administration of intravenous contrast. Coronal and sagittal reformations were obtained. Automated dose lowering techn iques and/or adjustment according to patient size were utilized for this exam. Comparison: None available at the time of this dictation. FINDINGS: No acute fractures or subluxations are identified. Degenerative changes are seen in the visualized sp ine. The alignment is normal. A large right thyroid nodule is seen measuring up to 38 mm in diameter. IMPRESSION: 1. Degenerative changes without evidence of acute bony injury. 2. Large thyroid nodules are seen. If not previously evaluated, nonemergent thyroid ultrasound can b e performed. ACT 112: Positive. There are findings on this exam that require communication between the performing entity and the patient following Patient Test Result Information Act ([place] Act 112) guidelines. Electronically signed by: Jc Coyle M.D. 03/12/2024 12:24 PM
--- NOTE | 2024-03-12 12:38 | CT Scan Report ---
ABDOMEN AND PELVIS CT WITHOUT CONTRAST CT DOSE: HISTORY: falls, CKD, R flank to back contusion TECHNIQUE: Multiaxial CT images of the abdomen and pelvis were performed without contrast. A dose lo wering technique was utilized adhering to the principles of ALARA. COMPARISON STUDY: Abdomen and pelvis CT 08/09/2022. FINDINGS: There is a small right pleural effusion which has increased in size. The heart is enlarged. Pacemaker wires are noted. Right basilar linear densities favor subsegmental atelectasis. A pneumoni tis could also have a similar appearance. Mild dependent changes seen within the left lung base. No p neumoperitoneum. No pneumatosis. There are old, healed right-sided rib fractures. No acute fractures identified. Mild body wall edema. Prior left inguinal hernia repair. Thickening and edema within the right gluteus kylie muscle. There may be a small intramuscular hematoma within the lower aspect of the right gluteus kylie muscle. Subcutaneous contusion within the right lumbar region. There is als o a right lumbar subcutaneous hematoma best seen on image 216 measuring 10.6 x 3.1 cm. There are few additional smaller subcutaneous hematoma within the right lumbar region. The unenhanced liver, gallbl adder, spleen, pancreas, and adrenal glands are unremarkable. A few small bilateral renal hypodense l esions are incompletely characterized on this noncontrast study but favor cysts. These are similar to the prior study. No hydronephrosis. No retroperitoneal hematoma or lymphadenopathy. There is again n oted a 5.8 x 5.1 cm infrarenal abdominal aortic aneurysm. This has increased in size in the interval, previously measuring 4.5 cm. Mild bladder wall thickening with a few small bladder diverticula at th e bladder dome again noted. This is likely due to chronic outlet obstruction from the enlarged prosta te gland. No pelvic free fluid or pelvic lymphadenopathy. Colonic diverticulosis. No evidence for acu te diverticulitis. No bowel wall thickening or obstruction. IMPRESSION: 1. There are few subcutaneous hematomas within the right lumbar region with the largest measuring 10. 6 x 3.1 cm. 2. Thickening and edema within the right gluteus kylie muscle. There may be a small intramuscular h ematoma within the lower aspect of the right gluteus kylie muscle. 3. No acute fractures within the abdomen or pelvis. 4. Small right pleural effusion which is increased in size. 5. Increase in size in the now 5.8 x 5.1 cm infrarenal abdominal aortic aneurysm. 6. Additional findings as described above. ACT 112: Negative or not required by law. Electronically signed by: Boy Gomez M.D. 03/12/2024 12:36 PM
--- NOTE | 2024-03-12 12:52 | CT Scan Report ---
HEAD CT NONCONTRAST CT DOSE: HISTORY: falls, r face swelling TECHNIQUE: Multiaxial CT images of the head were performed without the use of intravenous contrast. A utomated exposure control was utilized for this study. A dose lowering technique was utilized adheri ng to the principles of ALARA. Comparison: Head CT 10/06/2023. Findings: Retention cyst within the right maxillary sinus. Mild mucosal thickening within the ethmoid air cells. The mastoid air cells are clear. Right facial and frontal scalp swelling. Mild motion art ifact. The calvarium and skull base are intact. There is no mass, hematoma, midline shift, acute infa rct. White matter hypodensity is nonspecific but suggestive of microvascular ischemic change. The gloria tricles and sulci demonstrate mild age-related involutional changes. Old infarcts again noted within the cerebellar hemispheres, left basal ganglia, and right posterior temporal lobe. Impression: 1. No acute infarct or intracranial hemorrhage. 2. Old infarcts again noted. ACT 112: Negative or not required by law. Electronically signed by: Boy Gomez M.D. 03/12/2024 12:51 PM
[2024-03-12 13:38] LABS: INR 1.2 (0.9-1.1); Prothrombin Time 12.8 Seconds (9.0-12.0)
[2024-03-12] MEDS: cefTRIAXone SODIUM 2,000 MG/50 ML BAG IV STA (13:59)
--- NOTE | 2024-03-12 14:03 | History & Physical Report ---
Date of Service March 12, 2024 Assessment & Plan (1) AMS (altered mental status): (2) Dementia: (3) Elevated troponin: (4) Falls: (5) Hematoma: (6) URI (upper respiratory infection): (7) Abnormal CXR: (8) Primary membranous nephropathy with nephrotic syndrome: (9) Chronic heart failure with preserved ejection fraction: (10) Permanent atrial fibrillation: (11) History of DVT (deep vein thrombosis): (12) HTN (hypertension): (13) HLD (hyperlipidemia): (14) Chronic anemia: (15) Depression: Plan: Altered Mental Status Dementia: Patient is 83 year old male with PMH CAD, history of dilated ischemic cardiomyopathy with now improved and preserved EF, biventricular pacemaker/defibrillator implantation, mitral insufficiency, permanent atrial fibrillation anticoagulated on Eliquis, history of CVA and nocturnal hypoxia presented to ER from [facility] with c/o increased confusion DDX: metabolic encephalopathy, delirium CT head: no acute intracranial abnormality UA pending Reorient as needed Monitor CBC, BMP in a.m. URI: Abnromal CXR ?Possible Pneumonia Reported congestion and cough CXR: Cardiomegaly with pulmonary edema and small right pleural effusion. Right greater than left bibasilar opacities may represent asymmetric atelectasis versus pneumonia. procalcitonin: 0.15. Lactate WNL +parainfluenza on biofire respiratory panel CT chest pending In ER given Rocephin Will continue Rocephin and add doxycyline Flutter valve, incentive spirometry, Mucinex Recurrent Falls Hematoma CT head: no acute finding CT c-spine: Degenerative changes without evidence of acute bony injury. Large thyroid nodules are seen. If not previously evaluated, nonemergent thyroid ultrasound can be performed. CT ABD/PELVIS: There are few subcutaneous hematomas within the right lumbar region with the largest measuring 10.6 x 3.1 cm. Thickening and edema within the right gluteus kylie muscle. There may be a small intramuscular hematoma within the lower aspect of the right gluteus kylie muscle. No acute fractures within the abdomen or pelvis. Fall precautions PT/OT eval Hold Eliquis for now and reassess Elevated troponin: History of ischemic cardiomyopathy: CAD (coronary artery disease): History ischemic cardiomyopathy S/P pacer/defibrillator 10/07/2023 echo: EF: 55-55%, moderate concentric LVH, apical septum and apical inferior wall thinned and dyskinetic, moderate aortic valve sclerosis without significant stenosis, moderate mitral annular calcification, severe mitral regurgitation, moderate-severe tricuspid regurgitation, right ventricular systolic pressure elevated at 40-50 mmHg HS Troponin: 101-->107 EKG: paced rhythm Patient denies CP, SOB History chronic elevated troponin. 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 Been 2.2-2.6 Currently on Bactrim MWF as prophylaxis On tacrolimus. Tacrolimus level pending Nephrology consult Chronic heart failure with preserved ejection fraction: + Pitting edema BLE Monitor I's and O's, daily weight Plan to continue oral torsemide Closely monitor BMP Permanent atrial fibrillation: Chronically anticoagulated on Eliquis Continue metoprolol Holding Eliquis for now given hematoma History DVT (deep venous thrombosis): History BLE DVT in 10/2023 Will hold Eliquis currently HTN (hypertension): Continue metoprolol Chronic anemia: Chronic thrombocytopenia H&H, platelets about baseline Monitor History Stroke: Continue Plavix, rosuvastatin History Abdominal aortic aneurysm: 5.1 cm Abdominal aortic aneurysm on prior imaging CT Abd/pelvis today: 5.8 x 5.1 cm infrarenal abdominal aortic aneurysm. Will need follow up DVT Prophylaxis SCDs for now DNR/DNI as per discussion with patient and patient's son Follows with Dr Payam Claire for routine care Pt was seen and care coordinated with Dr Monk. See addendum I spent a total of 81 minutes reviewing notes, outpatient records, labs, medication, coordinating, documenting and providing care for this patient excluding time spent in the performance of separately billed services. History of Present Illness Chief Complaint: [facility] Primary Care Provider: Payam Claire DO Patient is 83 year old male with PMH CAD, history of dilated ischemic cardiomyopathy with now improved and preserved EF, biventricular pacemaker/defibrillator implantation, mitral insufficiency, permanent atrial fibrillation anticoagulated on Eliquis, history of CVA and nocturnal hypoxia [facility] with c/o increased confusion. Limited history obtained from patient secondary to mental status. History obtained from patient's son as well and inpatient and outpatient chart review. History recurrent falls. Reported fall last week and since with noted bruising to back. Reported from staff he was more confused today, didn't know where he was and they thought his speech was slurred. Son reports chronic BLE edema. Son feels has had increased BLE edema more recently. Patient states has been having rhinorrhea for past week. States coughing yesterday and he isn't able to bring anything up. Son states cough sounds wet today. States had nose bleed last week that was "little drips" for 24 hours and has since resolved. Denies known fever/chills, N/V/D, CP, SOB, sore throat, choking, otalgia, abdominal pain, increased weakness, rashes, urinary symptoms. Allergies Allergy/AdvReac Type Severity Reaction Status Date / Time No Known Allergies Allergy Unverified 10/06/23 15:42 Home Medications Medication Instructions Recorded Confirmed Type apixaban 5 mg tablet (Eliquis) 5 mg PO BID 08/09/22 03/12/24 History cholecalciferol (vitamin D3) 50 4,000 unit PO DAILY 08/09/22 03/12/24 History mcg (2,000 unit) tablet (Vitamin D3) clopidogrel 75 mg tablet 75 mg PO DAILY 08/09/22 03/12/24 History fluoxetine 10 mg capsule 10 mg PO DAILY 08/09/22 03/12/24 History fluticasone propionate 50 1 spray intranasal BID 08/09/22 03/12/24 History mcg/actuation nasal spray,suspension ketoconazole 2 % topical cream 1 applic topical BID PRN flares 08/09/22 03/12/24 History metoprolol succinate 25 mg 12.5 mg PO HS 08/09/22 03/12/24 History tablet,extended release 24 hr nitroglycerin 0.4 mg sublingual 0.4 mg sublingual UD PRN Chest Pain 08/09/22 03/12/24 History tablet rosuvastatin 10 mg tablet 10 mg PO HS 08/09/22 03/12/24 History acetaminophen 500 mg tablet 1,000 mg PO BID 09/23/23 03/12/24 History (Tylenol Extra Strength) docusate sodium 100 mg capsule 100 mg PO DAILY 09/23/23 03/12/24 History (Colace) loratadine 10 mg tablet 10 mg PO DAILY 09/23/23 03/12/24 History acetaminophen 325 mg tablet 650 mg PO Q4 PRN Fever Or Pain 10/06/23 03/12/24 History guaifenesin 400 mg tablet 400 mg PO Q6 PRN congestion/cough 10/06/23 03/12/24 History ketoconazole 2 % shampoo 1 ea topical 3XWK 10/06/23 03/12/24 History melatonin 3 mg tablet 3 mg PO HS PRN Insomnia 10/06/23 03/12/24 History sulfamethoxazole 800 1 tab PO MOWEFR 10/06/23 03/12/24 History mg-trimethoprim 160 mg tablet potassium chloride 20 mEq 20 meq PO TID 03/12/24 03/12/24 History tablet,extended release(part/cryst) tacrolimus 1 mg capsule, 2 mg PO BID 03/12/24 03/12/24 History immediate-release torsemide 20 mg tablet 40 mg PO DAILY PRN weight gain 03/12/24 03/12/24 History >3lbs torsemide 20 mg tablet 60 mg PO BID 03/12/24 03/12/24 History Past Med/Surg History Medical History (Updated 03/12/24 @ 21:03 by Sissy Trevizo PA-C) Depression History of DVT (deep vein thrombosis) Chronic anemia Dementia Vascular dementia [facility] neurology CKD (chronic kidney disease) stage 3, GFR 30-59 ml/min Nocturnal hypoxemia Stroke FDC current use of 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 Permanent atrial fibrillation HLD (hyperlipidemia) HTN (hypertension) CAD (coronary artery disease) History of ischemic cardiomyopathy Hematuria Generalized weakness COVID-19 Surgical History AICD (automatic cardioverter/defibrillator) present Status post biventricular pacemaker and defib Family History Other Family history non-contributory Social History Smoking Status: Never smoker Second Hand Exposure: No; Do You Dip or Chew Tobacco: No; Hx Alcohol Use: No Hx Substance Use: No Preferred Language: Moldovan Communication Ability: Effective Tinsel Machine Operator Required: No Beliefs That Will Affect Care: Uatsdin Uatsdin Beliefs: Church Current Living Situation: Personal Care Facility Current Living Situation Comment: [facility] Feels Safe at Home: Yes Safety Concerns: Feels Safe At This Time Assistive Devices: Cane, Denture - Upper and Walker Review of Systems 2 Review of Systems: Unobtainable due to cognitive status Physical Exam Physical Exam: General: chronic ill appearing elderly male no distress, WDWN Head: normocephalic, +abrasions scalp Eyes: PERRL, EOM's intact, conjunctiva non-injected, anicteric ENT: normal inspection external ears, nose, mucous membranes moist Neck: supple, trachea midline Lungs: clear, no respiratory distress, no wheezing/rhonchi/rales CV: RRR, + murmur, 2+ pretibial edema Abd: normal BS, soft, non-tender Back: +ecchymosis entire low back extending to bilateral flank, non-tender to palpation, no spinous process tenderness Ext: no cyanosis, no calf tenderness Neuro: Alert, oriented to person only, no focal deficits noted, normal affect Skin: warm, dry, +skin tear right lower back Results & Data Results & Data Vital Signs (Past 12 Hours) Vital Signs Temp Pulse Resp BP Pulse Ox O2 Del Method 03/12/24 13:00 76 16 141/91 H 03/12/24 12:30 77 15 136/92 03/12/24 11:58 83 03/12/24 11:30 78 17 126/76 94 03/12/24 11:29 75 20 95 Room Air 03/12/24 11:03 81 17 97/77 L 93 03/12/24 10:53 37.2 C 85 16 142/76 H 94 Room Air Laboratory Results Short CBC 03/12/24 Range/Units 11:00 WBC 3.89 L (4.8-10.8) K/ul Hgb 8.6 L (14.0-18.0) g/dl Hct 26.3 L (42.0-52.0) % Plt Count 99 L (130-400) K/uL BMP 03/12/24 11:00 Sodium 140 Potassium 4.2 Chloride 111 H Carbon Dioxide 24 BUN 44 H Creatinine 2.59 H Glucose 100 H Calcium 8.8 Liver Function 03/12/24 Range/Units 11:00 Total Bilirubin 0.8 (0.2-1.0) mg/dl AST 28 (13-39) U/L ALT 13 (7-52) U/L Alkaline Phosphatase 78 (34-104) U/L Albumin 2.8 L (3.4-5.0) gm/dl Diagnostic Findings Chest X-Ray 03/12/24 10:59 XR chest 1V portable HISTORY: 83 years-old Male weakness acute weakness COMPARISON: 10/06/2023 TECHNIQUE: AP view of the chest FINDINGS: Cardiac silhouette is enlarged. Left subclavian pacer/AICD. Pulmonary vascular congestion with interstitial coarsening. Trace left and small right pleural effusions with right basilar predominant consolidation. Degenerative changes of the shoulders and spine. IMPRESSION: 1. Cardiomegaly with pulmonary edema and small right pleural effusion. 3. Right greater than left bibasilar opacities may represent asymmetric atele ctasis versus pneumonia. ACT 112: Negative or not required by law. The above report was generated using voice recognition software. It may contain grammatical, syntax or spelling errors. Electronically signed by: Tin Smith M.D. 03/12/2024 12:13 PM Abdomen/Pelvis CT 03/12/24 11:[address] WITHOUT CONTRAST CT DOSE: HISTORY: falls, CKD, R flank to back contusion TECHNIQUE: Multiaxial CT images of the abdomen and pelvis were performed without contrast. A dose lowering technique was utilized adhering to the principles of ALARA. COMPARISON STUDY: Abdomen and pelvis CT 08/09/2022. FINDINGS: There is a small right pleural effusion which has increased in size. The heart is enlarged. Pacemaker wires are noted. Right basilar linear densities favor subsegmental atelectasis. A pneumonitis could also have a similar appearance. Mild dependent changes seen within the left lung base. No pneumoperitoneum. No pneumatosis. There are old, healed right-sided rib fractures. No acute fractures identified. Mild body wall edema. Prior left inguinal hernia repair. Thickening and edema within the right gluteus kylie muscle. There may be a small intramuscular hematoma within the lower aspect of the right gluteus kylie muscle. Subcutaneous contusion within the right lumbar region. There is also a right lumbar subcutaneous hematoma best seen on image 216 measuring 10.6 x 3.1 cm. There are few additional smaller subcutaneous hematoma within the right lumbar region. The unenhanced liver, gallbladder, spleen, pancreas, and adrenal glands are unremarkable. A few small bilateral renal hypodense lesions are incompletely characterized on this noncontrast study but favor cysts. These are similar to the prior study. No hydronephrosis. No retroperitoneal hematoma or lymphadenopathy. There is again noted a 5.8 x 5.1 cm infrarenal abdominal aortic aneurysm. This has increased in size in the interval, previously measuring 4.5 cm. Mild bladder wall thickening with a few small bladder diverticula at the bladder dome again noted. This is likely due to chronic outlet obstruction from the enlarged prostate gland. No pelvic free flui d or pelvic lymphadenopathy. Colonic diverticulosis. No evidence for acute diverticulitis. No bowel wall thickening or obstruction. IMPRESSION: 1. There are few subcutaneous hematomas within the right lumbar region with the largest measuring 10.6 x 3.1 cm. 2. Thickening and edema within the right gluteus kylie muscle. There may be a small intramuscular hematoma within the lower aspect of the right gluteus kylie muscle. 3. No acute fractures within the abdomen or pelvis. 4. Small right pleural effusion which is increased in size. 5. Increase in size in the now 5.8 x 5.1 cm infrarenal abdominal aortic aneurysm. 6. Additional findings as described above. ACT 112: Negative or not required by law. Electronically signed by: Boy Gomez M.D. 03/12/2024 12:[address] 03/12/24 11:47 CT cervical spine wo con CLINICAL HISTORY: falls TECHNIQUE: Multidetector row helical CT of the cervical spine was performed without administration of intravenous contrast. Coronal and sagittal reformations were obtained. Automated dose lowering techniques and/or adjustment according to patient size were utilized for this exam. Comparison: None available at the time of this dictation. FINDINGS: No acute fractures or subluxations are identified. Degenerative changes are seen in the visualized spine. The alignment is normal. A large right thyroid nodule is seen measuring up to 38 mm in diameter. IMPRESSION: 1. Degenerative changes without evidence of acute bony injury. 2. Large thyroid nodules are seen. If not previously evaluated, nonemergent thyroid ultrasound can be performed. ACT 112: Positive. There are findings on this exam that require communication between the performing entity and the patient following Patient Test Result Information Act ([place] Act 112) guidelines. Electronically signed by: Jc Coyle M.D. 03/12/2024 12:[address] 03/12/24 11:[address] DOSE: HISTORY: falls, r face swelling TECHNIQUE: Multiaxial CT images of the head were performed without the use of intravenous contrast. Automated exposure control was utilized for this study. A dose lowering technique was utilized adhering to the principles of ALARA. Comparison: Head CT 10/06/2023. Findings: Retention cyst within the right maxillary sinus. Mild mucosal thickening within the ethmoid air cells. The mastoid air cells are clear. Right facial and frontal scalp swelling. Mild motion artifact. The calvarium and skull base are intact. There is no mass, hematoma, midline shift, acute infarct. White matter hypodensity is nonspecific but suggestive of microvascular ischemic change. The ventricles and sulci demonstrate mild age-related involutional changes. Old infarcts again noted within the cerebellar hemispheres, left basal ganglia, and right posterior temporal lobe. Impression: 1. No acute infarct or intracranial hemorrhage. 2. Old infarcts again noted. ACT 112: Negative or not required by law. Electronically signed by: Boy Gomez M.D. 03/12/2024 12:51 PM Supervising Physician Co-Signing Physician Notes Pt seen and examined by me, care coordinated shawn/ Filomena Manley PA-C, pls refer to her note above for further detail. Pt is 83 yo M with CAD, history of dilated ischemic cardiomyopathy with now improved and preserved EF, biventricular pacemaker/defibrillator implantation, mitral insufficiency, permanent atrial fibrillation anticoagulated on Eliquis, history of CVA and nocturnal hypoxia who [facility]/o increased confusion. He has hx of recurrent falls, with noted bruising to back. Son feels has had increased BLE edema more recently. Patient states has been having rhinorrhea for past week. States coughing yesterday and he isn't able to bring anything up. Currently pt is laying in bed in [facility], he is awake and able to answer simple questions appropriately. He can tell he is in the hospital and his children's names, he says it's 2022, he is able to hold conversation. +rhinorrhea, +cough, + bruising to lower back, + LE edema. Mild rhonchi on lung exam noted, heart sounds regular, abdomen soft, nontender nondistended. CXR w/ Right greater than left bibasilar opacities may represent asymmetric atelectasis versus pneumonia. Will obtain biofire, CT chest w/o contrast, procalcitonin, sputum cultx. Will continue ceftriaxone as started in the ED, and will add doxycycline for now. Pt on tacrolimus, for his kidney dis, will obtain level. CT abdomen also obtained in the ED and shows few subcutaneous hematomas within the right lumbar region with the largest measuring 10.6 x 3.1 cm. Will hold Eliquis for now and monitor H&H. I discussed with the pt and his son Luis at the bedside that if the pt has frequent falls, we may consider not to restart Eliquis on discharge. MD Aleshia
[2024-03-12 15:50] LABS: Adenovirus PCR Not Detected (NotDetected); Bordetella parapertussis PCR Not Detected (NotDetected); Bordetella pertussis PCR Not Detected (NotDetected); Chlamydia pneumoniae PCR Not Detected (NotDetected); Coronavirus 229E PCR Not Detected (NotDetected); Coronavirus CoV-2 (COVID19)PCR Not Detected (NotDetected); Coronavirus HKU1 PCR Not Detected (NotDetected); Coronavirus NL63 PCR Not Detected (NotDetected); Coronavirus OC43PCR Not Detected (NotDetected); Human Metapneumovirus PCR Not Detected (NotDetected); Influenza A PCR Not Detected (NotDetected); Influenza B PCR Not Detected (NotDetected); Mycoplasma pneumoniae PCR Not Detected (NotDetected); Parainfluenza Virus 1 PCR Not Detected (NotDetected); Parainfluenza Virus 2 PCR Not Detected (NotDetected); Parainfluenza Virus 3 PCR DETECTED (NotDetected); Parainfluenza Virus 4 PCR Not Detected (NotDetected); Respiratory Syncytial VirusPCR Not Detected (NotDetected); Rhinovirus/Enterovirus PCR Not Detected (NotDetected)
[2024-03-12] MEDS ORDERED: POLYETHYLENE (MIRALAX) 17 GM PACK PO PRN (16:38)
[2024-03-12] MEDS ORDERED: ONDANSETRON INJ 2 MG/ML 2 ML VIAL IV PRN (16:38)
[2024-03-12] MEDS ORDERED: ACETAMINOPHEN 325 MG TAB PO PRN (16:38)
--- NOTE | 2024-03-12 17:00 | CT Scan Report ---
CT chest diagnostic wo con CT DOSE: 840.74 mGy.cm CLINICAL HISTORY: 83 years-old Male with r/o pneumonia. Acute shortness of breath. TECHNIQUE: Multiaxial CT images of the chest were performed without contrast. A dose lowering techni que was utilized adhering to the principles of ALARA. COMPARISON: CT cervical spine of same day. FINDINGS: There is a heterogeneous soft tissue attenuating lesion within the right neck on image 15 s eries 4 measuring 4.7 x 4.0 cm. This is above and abutting the right lobe of the thyroid. Right thyro id lobe calcifications. Left subclavian pacer. Mild cardiomegaly with evidence of prior myocardial in farction. Extensive coronary artery calcifications. No thoracic aortic aneurysm. Subcentimeter medias tinal and hilar lymph nodes. Small left with moderate right pleural effusions. Mild dependent bibasilar consolidation. There are a few scattered ground-glass density is noted within the upper lobes including a subpleural 10 mm focu s within the right upper lobe on image 68 series 4. A few scattered tree-in-bud micronodules are note d measuring up to approximately 3 mm. There is a 1.6 cm subpleural irregular nodule within the basal right middle lobe on image 226. Indeterminate 9 mm hypodensity of the lateral left hepatic lobe. No acute fracture. Ill-defined scler osis involving the mid-sternal body may represent a subacute versus chronic nondisplaced fracture. IMPRESSION: 1. Small left and moderate right pleural effusions with mild dependent bibasilar consolidation is sug gestive of atelectasis. 2. Additionally, there are scattered subsegmental tree-in-bud nodules within the lungs suggestive of an infectious or inflammatory bronchiolitis. 3. 1.6 cm irregular subpleural nodule of the right middle lobe. Three-month follow-up chest CT is rec ommended. 4. Sclerosis of the mid sternal body may represent a subacute versus chronic nondisplaced fracture. 5. 4.7 cm lesion within the right neck may represent an exophytic thyroid nodule versus less likely p athologic lymphadenopathy. Correlation with follow-up ultrasound is recommended. ACT 112: Negative or not required by law. Dictated: 03/12/2024 3:24 PM Transcribed: 03/12/2024 4:32 PM Jh [id number] [email or web address]_Brandon Electronically signed by: Tin Smith M.D. 03/12/2024 4:59 PM
[2024-03-12] MEDS: TORSEMIDE 20 MG TAB PO SCH (17:30)
[2024-03-12] MEDS: DOXYCYCLINE HYCLATE 100 MG CAP PO SCH (17:30)
[2024-03-12] MEDS: FLUTICASONE PROPIONATE NA SPR 16 GM BTL SCH (18:01)
[2024-03-12] MEDS: ROSUVASTATIN CALCIUM 10 MG TAB PO SCH (21:27)
[2024-03-12] MEDS: METOPROLOL SUCC 25MG EXT REL TAB PO SCH (21:27)
[2024-03-12] MEDS: POTASSIUM CHLORIDE CRTAB 20 MEQ TABCR PO SCH (21:27)
[2024-03-12] MEDS: guaiFENesin 600 MG TABCR PO SCH (21:28)
[2024-03-12] MEDS: ACETAMINOPHEN 500 MG TAB PO SCH (21:28)
[2024-03-12] MEDS: TACROLIMUS 1 MG CAP PO SCH (21:28)
[2024-03-12] MEDS: PNEUMOCOCCAL VACCINE (PCV20) 20-VAL CONJ-DIP CRM/PF 0.5 ML SYR IM ONE (22:00)
--- NOTE | 2024-03-13 00:24 | Electrocardiogram Report ---
Test Reason : Blood Pressure : / mmHG Vent. Rate : 080 BPM Atrial Rate : 074 BPM P-R Int : 000 ms QRS Dur : 156 ms QT Int : 492 ms P-R-T Axes : 000 -64 072 degrees QTc Int : 567 ms Ventricular-paced rhythm Premature ventricular complexes Abnormal ECG When compared with ECG of 08-OCT-2023 06:27, Vent. rate has decreased BY 3 BPM Confirmed by Hossein Betancur ([id number]) on 03/13/2024 12:24:14 AM Referred By: Confirmed By:Hossein Betancur
[2024-03-13 06:05] LABS: Basophils # (auto) 0.03 K/uL (0.00-0.20); Basophils % (auto) 0.8 %; Hematocrit (blood only) 27.1 % (42.0-52.0); Immature Granulocytes # (auto) 0.01 K/uL (0.01-0.20); Immature Granulocytes % (auto) 0.3 %; Lymphocytes # (auto) 0.69 K/uL (1.20-3.40); Lymphocytes % (auto) 17.3 %; Mean Corpuscular Hemoglobin 35.7 pg (25.0-34.0); Mean Corpuscular Hgb Conc 33.2 g/dL (32.0-36.0); Mean Corpuscular Volume 107.5 fL (80.0-100.0); Mean Platelet Volume 10.8 fL (9.4-12.4); Monocytes # (auto) 0.53 K/uL (0.11-0.59); Monocytes % (auto) 13.3 %; Neutrophils # (auto) 2.54 K/uL (1.40-6.50); Neutrophils % (auto) 63.3 %; Platelet Count 98 K/uL (130-400); RDW Coefficient of Variation 14.5 % (11.5-14.5); RDW Standard Deviation 56.3 fL (36.4-46.3); Red Blood Count 2.52 M/uL (4.70-6.10)
--- OUTSIDE RECORDS SUMMARY | 2024-03-13 06:12 | External Medical Summary | Summary of Care ---
Author Name Unknown Organization [facility] Address [address] [place] [address] Phone [phone] Care Team Providers Care Mixer Wet Pour Name Role Phone Payam Claire DO Primary Care Provider [phone] Encounter Details Date Type Department Care Team (Late st Contact Info) Description 03/05/2024 Orders Only Nephrology, [facility] [address] [place] [address] Gisele Daugherty MD 200 [facility] [place] [address] Allergies No known active allergiesdocumented as of this encounter (statuses as of 03/05/2024) Medications Medication Sig Dispensed Refills Start Date End Date Status Clopidogrel Bisulfate 75 MG Oral Tablet (pLAVix)Indications: 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 0 Active Diclofenac Sodium 1 % Transdermal Gel Place topically on the skin 4 times a day. Apply to to back as needed 0 Active Rosuvastatin Calcium 10 MG Oral Tablet (Crestor) Take 1 Tablet by mouth in the morning. Take one daily at bedtime . 0 Active Fluticasone Propionate 50 MCG/ACT Nasal Suspension Administer 1 [place] into nostril in the morning. 0 Active FLUoxetine HCl 10 MG Oral Tablet (PROzac) Take 1 Tablet by mouth in the morning. 0 Active Ketoconazole 2 % External CreamIndications:Jaya orrheic dermatitis of scalp Apply behind ears twice daily as needed for flares 30 g 0 07/02/2022 Active Ketoconazole 2 % External Shampoo (Nizoral)Indications :Seborrheic dermatitis of scalp Apply to scalp and behind ears 2-3 times per week; leave on 3-5 min before rinsing 120 mL 1 07/08/2022 Active Acetaminophen 500 MG Oral Tablet Take [...] mouth at bedtime as needed. 0 Active Apixaban 5 MG Oral Tablet (Eliquis)Indications :Paroxysmal atrial fibrillation (HCC) Take 1 Tablet by mouth in the morning and 1 Tablet before bedtime. Please take 2 tablets of apixaban twice a day till October 03 2023 evening and starting October 04 2023 take 1 tablet twice a day. 0 10/02/2023 Active Sulfamethoxazole-Tri methoprim 800-160 MG Oral Tablet (Bactrim DS) Take 1 Tablet by mouth once a day on Friday, Friday, and Friday only. 60 Tablet 5 10/10/2023 Active Vitamin D (Cholecalciferol) 50 MCG (1999 UT) Oral Capsule Take 4,000 Units by mouth daily. 28 Capsule 01/15/2024 Active Tacrolimus 1 MG Oral Capsule (Prograf) Take 1 Capsule by mouth in the morning and 1 Capsule before bedtime. Take with 0.5 mg tablet twice daily. 60 Capsule 3 01/26/2024 Active Potassium Chloride Rosita ER 20 MEQ Oral Tablet Extended Release Take 1 Tablet by mouth in the morning and 1 Tablet before bedtime. 60 Tablet 01/29/2024 Active Metoprolol Succinate ER 25 MG Oral Tablet Extended Release 24 Hour (Toprol XL)Indications:Coron alec artery disease involving kaw coronary artery of kaw heart without angina pectoris Take 0.5 Tablets by mouth at bedtime. 15 Tablet 5 01/29/2024 Active Tacrolimus 0.5 MG Oral Capsule (Prograf) Take 1 Capsule by mouth in the morning and 1 Capsule before bedtime. Take in addition to 1 mg twice daily for 1.5 mg twice daily.. 60 Capsule 01/29/2024 Active Torsemide 20 MG Oral Tablet (Demadex) Take 2 Tablets by mouth in the morning and 2 Tablets in the evening. 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 25 Tablet 3 02/10/2024 Active documented as of this encounter (statuses as of 03/05/2024) Active Problems Problem Noted Date Diagnosed Date Venous insufficiency 11/05/2023 AAA (abdominal aortic aneurysm) 10/07/2023 Overview: 5.1 cm AAA noted on CT abd/pel 09/25/23 Monoclonal gammopathy 09/25/2023 Acute deep vein thrombosis (DVT) of both peronea l veins 09/25/2023 Nephrotic syndrome 09/25/2023 Nephrotic range proteinuria 09/25/2023 Dyslipidemia 01/13/2023 History of nonmelanoma skin cancer 12/22/2022 Overview: Hx of BCC R helix s/p Mohs 2021,BCC L shoulder 2021, BCC R posterior neck 2021,NMSC lower lip years ago (no records) Ischemic cardiomyopathy 01/31/2021 HTN, goal below 130/80 01/31/2021 History of stroke 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 (5 years old or older) No 09/25/2023 documented as of this encounter Plan of Treatment Upcoming Encounters Date Type Department Care Team (Late st Contact Info) Description 03/08/2024 3:00 PM EDT Office Visit Nephrology, [facility] [address] [place] [address] [address] Gisele Daugherty MD [address] [place] [address] [address] 03/31/2024 2:00 PM EDT Office Visit Hematology/Oncology [facility] [place] [address] [place] [address] [phone] Roberto Camarena MD [address] [place] [address] [address] 04/12/2024 9:00 AM EDT Office Visit Family Practice [facility] [address] [place] [address] [address] Zeynep Amezcua PA-C [address] [place] [place] [address] [address] 05/19/2024 10:00 AM EDT Imaging Radiology [facility] [address] [facility] [place] [address] [facility] [place] [address] 05/19/2024 10:30 AM EDT Imaging Vascular Lab, [facility] [address] [facility] [place] [address] [place] [address] 05/26/2024 9:10 AM EDT Office Visit Vascular Surgery, [facility] [address] [facility] [place] [address] Alec Hinton MD [address] [place] [address] 06/21/2024 9:00 AM EDT Office Visit Cardiology, [facility] [address] [place] [address] Melanie Torres CRNP [address] [place] [address] 11/23/2024 1:30 PM EST Cardiac Studies Cardiology [address] [place] [address] [place] [address] [place] [address] Health Maintenance Due Date Last Done Comments Zoster Vaccines (1 of 2) 11/08/2013 09/13/2013 COVID-19 Vaccine (3 - Moderna risk series) 03/10/2021 02/10/2021, 01/02/2021 Depression Screening 04/11/2022 04/11/2021 GFR 03/03/2025 03/03/2024, 03/0 05/2024, 01/19/2024, Additional history exists Albumin/Creatinine Ratio 01/07/2027 01/07/2024, 10/01 DTaP,Tdap,and Td Vaccines (2 - Td or [...] Procedure Name Priority Date/Time Associated Diagnosis Comments CHEMISTRY-OUTSIDE Routine 03/03/2024 documented in this encounter Results * (ABNORMAL) CHEMISTRY-OUTSIDE (03/03/2024) Not all results display below - see scan for full detail OUTSIDE LAB (SEE SCANNED REPORT) Comment:SCAN INCLUDES - BMP, ALB, CBC CREATININE-OUTSID E LAB 2.65(A) 0.6 - 1.4 MG/DL OUTSIDE LAB (SEE SCANNED REPORT) EGFR-OUTSIDE LAB 21.2 ML/MIN/1.7 3M2 OUTSIDE LAB (SEE SCANNED REPORT) POTASSIUM-OUTSIDE LAB 3.8 3.5 - 5.1 MMOL/L OUTSIDE LAB (SEE SCANNED REPORT) GLUCOSE-OUTSIDE LAB 82 70 - 99 MG/DL OUTSIDE LAB (SEE SCANNED REPORT) HOURS FASTING OUTSID E LAB (SEE SCANNED REPORT) TRIGLYCERIDES-OUT SIDE LAB OUTSIDE LAB (SEE SCANNED REPORT) CHOLESTEROL-OUTSI DE LAB OUTSIDE LAB (SEE SCANNED REPORT) HDL-OUTSIDE LAB OUTS VALERIO LAB (SEE SCANNED REPORT) CHOL/HDL RATIO-OUTSIDE LAB OUTSIDE LA B (SEE SCANNED REPORT) LDL (CALCULATED)-OUTS [facility] LAB OUTSIDE LAB (SEE SCANNED REPORT) LDL (DIRECT MEASURE)-OUTSIDE LAB OUTSIDE LAB (SEE SCANNED REPORT) HEMOGLOBIN, I7K-ISFOTCH LAB OUTSIDE LAB (SEE SCANNED REPORT) PHOSPHORUS-OUTSID E LAB OUTSIDE LAB (SEE SCANNED REPORT) PTH-OUTSIDE LAB OUTS [facility] LAB (SEE SCANNED REPORT) MICROALBUMIN RATIO-OUTSIDE LAB OUTSIDE LA B (SEE SCANNED REPORT) PROTEIN, UA-OUTSIDE LAB OUTSIDE LAB (SEE SCANNED REPORT) HGB 9.1(A) 14.0 - 18.0 G/DL OUTSIDE LAB (SEE SCANNED REPORT) 03/03/2024 Gisele Daugherty MD LABORATORY OUTSIDE LAB (SEE SCANNED REPORT) documented in this encounter Advance Directives Documents on File Type Date Recorded Patient Informatics Educator Expl anation Power of Barn Worker 11/29/2019 POWER OF A TTORNEY Latest Code [...] Agents on File Name Relationship [facility] Luis [place] Adult Child Health Care Age nt (per Health Care Power of Barn Worker document) Care Teams Mixer Wet Pour Relationship Specialty Start Date End Date Payam Claire DO [facility] [place] [address] PCP - General Family Medicine 09/08/23 documented as of this encounter
--- OUTSIDE RECORDS SUMMARY | 2024-03-13 06:12 | External Medical Summary | Summary of Care ---
Author Name Unknown Organization [facility] Address [address] [place] [address] Phone [phone] Care Team Providers Care Roller Shop Utility Worker Name Role Phone Payam Claire DO Primary Care Provider [phone] Encounter Details Date Type Department Care Team (Late st Contact Info) Description 03/03/2024 Result Scan Unspecified Department Gisele Daugherty MD [address] [place] [address] <No scans attached> Allergies No known active allergiesdocumented as of this encounter (statuses as of 03/08/2024) Medications Medication Sig Dispensed Refills Start Date End Date Status Clopidogrel Bisulfate 75 MG Oral Tablet (pLAVix)Indications: Coronary artery disease involving [place] coronary artery of [place] heart without angina pectoris Take 1 Tablet [...] 50 MCG/ACT Nasal Suspension Administer 1 [place] into nostril in the morning. 0 Active [...] 10/10/2023 Active Vitamin D (Cholecalciferol) 50 MCG (2000 UT) Oral Capsule Take 4,000 Units by [...] Hour (Toprol XL)Indications:Coron alec artery disease involving [place] coronary artery of [place] heart without angina pectoris Take 0.5 Tablets by mouth at bedtime. 15 Tablet 01/29/2024 Active Tacrolimus 0.5 MG Oral Capsule (Prograf) Take 1 Capsule by mouth in the morning and 1 Capsule before bedtime. Take in addition to 1 mg twice daily for 1.5 mg twice daily.. 60 Capsule 01/29/2024 Active Torsemide 20 MG Oral Tablet (Demadex) Take 2 Tablets by mouth in the morning and 2 Tablets in the evening. 120 Tablet 01/29/2024 Active Torsemide 20 MG Oral Tablet (Demadex)Indications :Chronic kidney disease, stage 3a (HCC) Take extra 40 mg as needed for wt gain > 3 bs 30 Tablet 5 02/09/2024 Active Nitroglycerin 0.4 MG Sublingual Tablet Sublingual (Nitrostat)Indicatio ns:Coronary artery disease involving [place] coronary artery of [place] heart without angina pectoris Place 1 Tablet under the tongue every 5 minutes as needed for Pain, Chest. 25 Tablet 3 02/10/2024 Active documented as of this encounter (statuses as of 03/08/2024) Active Problems Problem Noted Date Diagnosed Date [...] of stroke Coronary artery disease invo lving [facility] ir[place] coronary artery of [place] heart without angina pectoris Pacemaker AICD (automatic cardioverter/defibrillator) pres ent Permanent atrial fibrillation documented as of this encounter (statuses as of 03/08/2024) Resolved Problems Problem Noted Date Diagnosed Date Resolved Date Stage 3b chronic kidney disease 09/25/2023 10/16/2023 Chronic kidney disease, stage 3a 10/14/2022 01/02/2024 Overview: Per CKD protocol Dyslipidemia, goal LDL below 70 01/31/2021 01/13/2023 documented as of this encounter (statuses as of 03/08/2024) Immunizations Name Administration Dates Next Due COVID-19 [...] 03/08/2024 3:00 PM EDT Office Visit Nephrology, [facility] [address] [place] [address] Gisele Daugherty MD 200 [facility] [place] [address] 03/31/2024 2:00 PM EDT Office Visit Hematology/Oncology [facility] [address] [phone] Roberto Camarena MD 200 [facility] [address] 04/12/2024 9:00 AM EDT Office Visit Family Practice [facility] [address] [place] [address] Zeynep Amezcua PA-C [address] [place] [address] 05/19/2024 10:00 AM EDT Imaging Radiology [facility]st [facility] [address] [facility] [place] [address] 05/19/2024 10:30 AM EDT Imaging Vascular Lab, [facility] 2nd [facility] [place] [address] [facility] [place] [address] 05/26/2024 9:10 AM EDT Office Visit Vascular Surgery, [facility] [address] [facility] [place] [address] Alec Hinton MD [address] [place] [address] 06/21/2024 9:00 AM EDT Office Visit Cardiology, [facility] [address] [place] [address] Melanie Torres CRNP [address] [place] [address] 11/23/2024 1:30 PM EST Cardiac Studies Cardiology [address] [place] [address] [place] [address] [place] [address] Health Maintenance Due Date Last Done Comments Zoster Vaccines (1 of 2) 11/08/2013 09/13/2013 COVID-19 Vaccine (3 - Moderna risk series) 03/10/2021 02/10/2021, 01/02/2021 Depression Screening 04/11/2022 04/11/2021 GFR 03/03/2025 03/03/2024, 03/05/2024, 01/19/2024, Additional history exists Albumin/Creatinine Ratio 01/07/2027 [...] Date/Time Associated Diagnosis Comments OUTSIDE LAB RESULTS 03/03/2024 documented in this encounter Results * OUTSIDE LAB RESULTS (03/03/2024) 03/03/2024 Gisele Daugherty MD LABORATORY documented in this encounter Advance Directives Documents on File Type Date Recorded Patient Strapper And Buffer Expl anation Power of Poultry Cutter 11/29/2019 POWER OF A TTORNEY Latest Code [...] Age nt (per Health Care Power of Poultry Cutter document) Care Teams Roller Shop Utility Worker Relationship Specialty Start Date End Date Payam Claire DO [address] [place] [address] PCP - General Family Medicine 09/08/23 documented as of this encounter
--- OUTSIDE RECORDS SUMMARY | 2024-03-13 06:12 | External Medical Summary | Summary of Care ---
Author Name Unknown Organization [facility] Address [address] [place] [address] Phone [phone] Care Team Providers Care Solar Process Engineer Name Role Phone Payam Claire DO Primary Care Provider [phone] Reason for Visit * Reason Onset Date Comments FYI 03/05/2024 Encounter Details Date Type Department Care Team (Late st Contact Info) Description 03/05/2024 Telephone Family Practice [facility] [place] 200 [facility] [place] [address] Payam Claire DO [facility] [address] FYI Allergies No known active allergiesdocumented as of this encounter (statuses as of 03/05/2024) Medications Medication Sig Dispensed Refills Start Date End Date Status Clopidogrel Bisulfate 75 MG Oral Tablet (pLAVix)Indications: Coronary artery disease involving [place] coronary artery of [place] heart without angina pectoris Take 1 Tablet [...] Propionate 50 MCG/ACT Nasal Suspension Administer 1 [place] into nostril in the morning. 0 Active FLUoxetine HCl 10 MG Oral Tablet (PROzac) Take 1 Tablet by mouth in the morning. 0 Active Ketoconazole 2 % External CreamIndications:Jaay orrheic dermatitis of scalp Apply behind ears [...] Hour (Toprol XL)Indications:Coron alec artery disease involving [place] coronary artery of [place] heart without angina pectoris Take 0.5 Tablets [...] Tablet Sublingual (Nitrostat)Indicatio ns:Coronary artery disease involving [place] coronary artery of [place] heart without angina pectoris Place 1 Tablet [...] of stroke Coronary artery disease invo lving [place] coronary artery of [place] heart without angina pectoris Pacemaker AICD (automatic [...] encounter Miscellaneous Notes * Telephone Encounter - Rosio Tomas RN - 03/05/2024 3:49 PM EDT TE with John regarding labs. They are unable to recheck labs until Friday as that is when they are drawn in facility. Tacro level was a true trough per DON. * Telephone Encounter - Gisele Daugherty MD - 03/05/2024 3:40 PM EDT Yes pls repeat bmp and tac b/c torse has chance to make renal function worse (which it already was on recent labs) and if renal function worse need to know if tac level is ok or not >>>ALSO pls ask / do legwork to verify this 03/03 value is actual tack trough * Telephone Encounter - Yissel Chew LPN - 03/05/2024 3:29 PM EDT FYI we received Tacro trough and BMP 03/04/24 from [facility] via fax Labs collected on 03/03/24 Tacro Result3,3 Do you still want repeat Tacro level and BMP done Please advise * Telephone Encounter - Gisele Daugherty MD - 03/05/2024 3:25 PM EDT Noted and appreciated; overall gaining weight. Continue extra qod torse as currently doing Labs as below Bring 3 week weight and bp logs to on 03/08 Call them back on 03/07 to remind them of OV 03/08 bp/wt log needs and MAR Update son dory as well pls on below * Telephone Encounter - Yissel Chwe LPN - 03/05/2024 2:46 PM EDT Received logs Per John Additional dosing of torsemide was started 03/01/24 Verified pt is currently taking Metoprolol 12.5 mg 1 @ hs Potassium Chloride 20meq 1 tab bid Most recent weights 02/26 229.6 03/01/24 232.6 03/03/24 230.4 03/05/24 233.4 BP average from 03/01 to current 142/93 03/01/24 107/72 P 69 03/02/24 130/81 P 77 03/03/24 157/81 P 03/04/24 168/124 P 03/05/24 146/110 P Please review * Telephone Encounter - Gisele Daugherty MD - 03/05/2024 1:50 PM EDT Noted; recent labs somewhat worse on 03/03 ? W/ extra torsemide dose >>pls call back 1) ask for logs again (prefer not to go into weekend w/o addressing this issue) 2) verify doses of what other bp meds he's taking (ie, find out what dose of metoprolol, K dosing) 3) when did higher/extra torsemide dose they're doing start 4) will need bmp, FK TROUGH on Friday pls * Telephone Encounter - Yissel Chew LPN - 03/05/2024 11:07 AM EDT TE Spoke with John Pt has had increased weight gain of 3.5 lb today Notes weights have been fluctuating over the last week Pt has been receiving regular Torsemide 40mg bid and with recent weight gain extra torsemide 40mg per MD order qod John states that when given extra torsemide pt's weight would decrease by the next day and no extra dose was given for that day John states patient has no cough Lungs are clear But patient complains of fatigue and staff notes pedal edema although not pittingBP are elevated John will send BP and weight logs for review Pt has follow up apt on Friday03/08/[address] Willow HAHN Awaiting logs * Telephone Encounter - Viky Alvarez OSA - 03/05/2024 10:39 AM EDT John with [place] [facility] reporting increase of weight. Patient up 3.5 lbs from 03/03/2024. Concerned about weight fluctuations and increased fatigue. Requesting to speak with clinicalstaff (Rosio). documented in this encounter Plan of Treatment Upcoming Encounters Date Type Department Care Team (Late st Contact Info) Description 03/08/2024 3:00 PM EDT Office Visit Nephrology, [place] [address] [address] Gisele Daugherty MD 200 [facility] [place] [address] 03/31/2024 2:00 PM EDT Office Visit Hematology/Oncology [facility] [place] [address] [place] [phone] Roberto Camarena MD [facility] [place] [address] 04/12/2024 9:00 AM EDT Office Visit Family Practice [facility] [place] [address] [place] [address] Zeynep Amezcua PA-C [address] [address] 05/19/2024 10:00 AM EDT Imaging Radiology [facility] 1st [facility] [place] 132 [facility] [place] [address] 05/19/2024 10:30 AM EDT Imaging Vascular Lab, [facility] 2nd [facility], [place] 132 [facility] [place] [address] 05/26/2024 9:10 AM EDT Office Visit Vascular Surgery, [facility] 132 [facility] [place] [address] Alec Hinton MD [address] [place], [place] [phone] 06/21/2024 9:00 AM EDT Office Visit Cardiology, [facility] 132 [facility] [place] [address] Melanie Torres CRNP 132 [facility] [place] [address] 11/23/2024 1:30 PM EST Cardiac Studies Cardiology [address] [place] [address] [facility] 132 [facility] [place] [address] Health Maintenance Due Date Last Done Comments [...] Documents on File Type Date Recorded Patient Assistant To The Director Expl anation Power of Brewery Pumper 11/29/2019 POWER OF A TTORNEY Latest Code [...] File Name Relationship [facility] Communication Dory Troy Adult Child Health Care Age nt (per Health Care Power of Brewery Pumper document) Care Teams Solar Process Engineer Relationship Specialty Start Date End Date Payam Claire DO [address] [place] [address] PCP - General Family Medicine 09/08/23 documented as of this encounter
--- OUTSIDE RECORDS SUMMARY | 2024-03-13 06:12 | External Medical Summary | Summary of Care ---
Author Name Unknown Organization [facility] Address [address] [place] [address] Phone [phone] Care Team Providers Care Operators School Manager Name Role Phone Payam Claire DO Primary Care Provider [phone] Reason for Visit * Reason Onset Date Comments Outpatient Testing 03/04/2024 Encounter Details Date Type Department Care Team (Late st Contact Info) Description 03/04/2024 Telephone Nephrology, [facility] [address] [place] [address] Gisele Daugherty MD [address] [place] [address] Outpatient Testing Allergies No known active allergiesdocumented as of this encounter (statuses as of 03/04/2024) Medications Medication Sig Dispensed Refills Start Date End Date Status Clopidogrel Bisulfate 75 MG Oral Tablet (pLAVix)Indications: Coronary artery disease involving [place] coronary artery of [place] heart without angina pectoris Take 1 Tablet [...] Propionate 50 MCG/ACT Nasal Suspension Administer 1 [place] into nostril in the morning. 0 Active [...] Hour (Toprol XL)Indications:Coron alec artery disease involving [place] coronary artery of [place] heart without angina pectoris Take 0.5 Tablets [...] Tablet Sublingual (Nitrostat)Indicatio ns:Coronary artery disease involving [place] coronary artery of [place] heart without angina pectoris Place 1 Tablet under the tongue every 5 minutes as needed for Pain, Chest. 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 Permanent atrial fibrillation documented as of this encounter (statuses as of 03/04/2024) Resolved Problems Problem Noted Date Diagnosed Date Resolved Date Stage 3b chronic kidney disease 09/25/2023 10/16/2023 Chronic kidney disease, stage 3a 10/14/2022 01/02/2024 Overview: Per CKD protocol Dyslipidemia, goal LDL below 70 01/31/2021 01/13/2023 documented as of this encounter (statuses as of 03/04/2024) Immunizations Name Administration Dates Next Due COVID-19 [...] encounter Miscellaneous Notes * Telephone Encounter - Yissel Chew LPN - 03/04/2024 11:15 AM EDT Lab results received via fax No Tacro results included in this fax from [facility] Reports are sent to [facility] for scanning documented in this encounter Plan of Treatment Upcoming Encounters Date Type Department Care Team (Late st Contact Info) Description 03/08/2024 3:00 PM EDT Office Visit Nephrology, [facility] [address] [place] [address] Gisele Daugherty MD 200 [facility] [place] [address] [address] 03/31/2024 2:00 PM EDT Office Visit Hematology/Oncology [facility] [place] [address] [phone] Roberto Camarena MD 200 [facility] [place] [address] [address] 04/12/2024 9:00 AM EDT Office Visit Family Practice [facility] [place] [address] [address] Zeynep Amezcua PA-C [address] [address] 05/19/2024 10:00 AM EDT Imaging Radiology [facility] 1st [facility] [place] 132 [facility] [place] [address] 05/19/2024 10:30 AM EDT Imaging Vascular Lab, [facility] 2nd Floor, [place] 132 [facility] [place] [address] 05/26/2024 9:10 AM EDT Office Visit Vascular Surgery, [facility] 132 [facility] [place] [address] Alec Hinton MD [address] [place] [address] 06/21/2024 9:00 AM EDT Office Visit Cardiology, [facility] 132 [facility] [place] [address] Melanie Torres CRNP 132 [facility] [place] [address] 11/23/2024 1:30 PM EST Cardiac Studies Cardiology [address] [place] [address] [facility] 132 [facility] [place] [address] Health Maintenance Due Date Last Done Comments Zoster Vaccines (1 of 2) 11/08/2013 09/13/2013 COVID-19 Vaccine (3 - Moderna risk series) 03/10/2021 02/10/2021, 01/02/2021 Depression Screening 04/11/2022 04/11/2021 GFR 02/03/2025 02/04/2024, 01/01, 01/07/2024, Additional history exists Albumin/Creatinine Ratio 01/07/2027 01/07/2024, [...] Documents on File Type Date Recorded 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
--- OUTSIDE RECORDS SUMMARY | 2024-03-13 06:12 | External Medical Summary | Summary of Care ---
Author Name Unknown Organization [facility] Address [address] [place] [address] Phone [phone] Care Team Providers Care Material Handler 2Nd Shift Name Role Phone Payam Claire DO Primary Care Provider [phone] Reason for Visit * Reason Onset Date Comments FYI 03/05/2024 Encounter Details Date Type Department Care Team (Late st Contact Info) Description 03/05/2024 Telephone Family Practice [facility] [place] 200 [facility] [place] [address] Payam Claire DO 200 [facility] [address] FYI Allergies No known active allergiesdocumented as of this encounter (statuses as of 03/08/2024) Medications Medication Sig Dispensed Refills Start Date End Date Status Clopidogrel Bisulfate 75 MG Oral Tablet (pLAVix)Indications: Coronary artery disease involving [place] coronary artery of [place] heart without angina pectoris Take 1 [...] Propionate 50 MCG/ACT Nasal Suspension Administer 1 [place] into nostril in the morning. 0 Active [...] Hour (Toprol XL)Indications:Coron alec artery disease involving [place] coronary artery of [place] heart without angina pectoris Take 0.5 Tablets [...] Tablet Sublingual (Nitrostat)Indicatio ns:Coronary artery disease involving [place] coronary artery of [place] heart without angina pectoris Place 1 [...] of stroke Coronary artery disease invo lving [place] coronary artery of [place] heart without angina pectoris Pacemaker AICD [...] Telephone Encounter - Yissel Chew LPN - 03/08/2024 8:12 AM EDT Noted patient has OV today Dory is made aware Will need BP/weight logs from the and JAN for this visit and John was made aware of this on Friday * Telephone Encounter - Gisele Daugherty MD - 03/05/2024 5:20 PM EDT OK; wed is fine; pls ensure they have orders they need and pls ensure they do what's requested for tues appt w/ me Pls also update dory * Telephone Encounter - Rosio Tomas RN [...] ask / do legwork to verify this 4/3 value is actual tack trough * Telephone Encounter - Yissel Chew LPN - 03/05/2024 3:29 PM EDT FYMelissa we received Tacro trough and BMP 03/04/24 from [facility] via fax Labs collected on 03/03/24 Tacro Result3,3 Do you still want repeat Tacro level and BMP done Please advise * Telephone Encounter - Gisele Daugherty MD - 03/05/2024 3:25 PM EDT Noted and appreciated; overall gaining weight. Continue extra qod torse as currently doing Labs as below Bring 3 week weight and bp logs to OV on 03/08 Call them back on 03/07 to remind them of OV 03/08 bp/wt log needs and MAR Update son dory as well pls on below * Telephone Encounter - Yissel Chew LPN - 03/05/2024 2:46 PM EDT Received [...] - 03/05/2024 10:39 AM EDT John with [place] [facility] reporting increase of weight. Patient up 3.5 lbs from 03/03/2024. Concerned about weight fluctuations and increased fatigue. Requesting to speak with dandyredd (Rosio). documented in this encounter Plan of Treatment Upcoming Encounters Date Type Department Care Team (Late st Contact Info) Description 03/08/2024 3:00 PM EDT Office Visit Nephrology, [facility] [place] [address] Gisele Daugherty MD 200 [facility] [place] [address] 03/31/2024 2:00 PM EDT Office Visit Hematology/Oncology [facility] [address] [place] [phone] Roberto Camarena MD [address] [place] [address] 04/12/2024 9:00 AM EDT Office Visit Family Practice [facility] [address] [place] [address] Zeynep Amezcua PA-C 200 [facility] [place] [address] 05/19/2024 10:00 AM EDT Imaging Radiology [facility] [address] [facility] 132 [facility] [place] [address] 05/19/2024 10:30 AM EDT Imaging Vascular Lab, [facility] [address] [facility] 132 [facility] [place] [address] 05/26/2024 9:10 AM EDT Office Visit Vascular Surgery, [facility] 132 [facility] [place] [address] Alec Hinton MD [address] [place] [address] 06/21/2024 9:00 AM EDT Office Visit Cardiology, [facility] 132 [facility] [place] [address] Melanie Torres CRNP 132 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
--- OUTSIDE RECORDS SUMMARY | 2024-03-13 06:12 | External Medical Summary | Summary of Care ---
Author Name Unknown Organization [facility] Address [address] [place] [address] Phone [phone] Care Team Providers Care Roof Bolter Operator Name Role Phone Payam Claire DO Primary Care Provider [phone] Encounter Details Date Type Department Care Team (Late st Contact Info) Description 03/05/2024 Orders Only Nephrology, [facility] [address] [place] [address] Gisele Daugherty MD 200 [facility] [place] [address] Allergies No known active allergiesdocumented as of this encounter (statuses as of 03/05/2024) Medications Medication Sig Dispensed Refills Start Date End Date Status Clopidogrel Bisulfate 75 MG Oral Tablet (pLAVix)Indications: Coronary artery disease involving [place] coronary artery of [place] heart without angina pectoris Take 1 Tablet [...] Propionate 50 MCG/ACT Nasal Suspension Administer 1 [place] into nostril in the morning. 0 Active [...] Hour (Toprol XL)Indications:Coron alec artery disease involving [place] coronary artery of [place] heart without angina pectoris Take 0.5 Tablets [...] Tablet Sublingual (Nitrostat)Indicatio ns:Coronary artery disease involving [place] coronary artery of [place] heart without angina pectoris Place 1 Tablet [...] of stroke Coronary artery disease invo lving [place] coronary artery of [place] heart without angina pectoris Pacemaker AICD (automatic [...] 03/08/2024 3:00 PM EDT Office Visit Nephrology, [facility] [address] [place] [address] Gisele Daugherty MD [address] [address] 03/31/2024 2:00 PM EDT Office Visit Hematology/Oncology [facility] [place] [address] [phone] Roberto Camarena MD [address] [address] 04/12/2024 9:00 AM EDT Office Visit Family Practice [facility] [address] [address] Zeynep Amezcua PA-C [address] [address] 05/19/2024 10:00 AM EDT Imaging Radiology [facility] 1st [facility] [place] 132 [facility] [place] [address] 05/19/2024 10:30 AM EDT Imaging Vascular Lab, [facility] 2nd [facility] [place] [address] [place] [address] 05/26/2024 9:10 AM EDT Office Visit Vascular Surgery, [facility] 132 [facility] [place] [address] Alec Hinton MD [address] [place] [address] 06/21/2024 9:00 AM EDT Office Visit Cardiology, [facility] [address] [place] [address] Melanie Torres CRNP [address] [place] [address] 11/23/2024 1:30 PM EST Cardiac Studies Cardiology [address] [place] [address] [place] [address] [place] [address] Health Maintenance Due Date Last Done Comments Zoster Vaccines (1 of 2) 11/08/2013 09/13/2013 COVID-19 Vaccine (3 - Moderna risk series) 03/10/2021 02/10/2021, 01/02/2021 Depression Screening 04/11/2022 04/11/2021 GFR 02/03/2025 03/03/2024, 03/0 05/2024, 01/19/2024, Additional history exists [...] LAB OUTSIDE LAB (SEE SCANNED REPORT) HEMOGLOBIN, [id number] LAB OUTSIDE LAB (SEE SCANNED REPORT) PHOSPHORUS-OUTSID [...] Documents on File Type Date Recorded Patient Ancillary Specialist Expl anation Power of Managing Broker 11/29/2019 POWER OF A TTORNEY Latest Code [...] Agents on File Name Relationship Healthcare Agent [facility] Communication Luis Troy Adult Child Health Care Age nt (per Health Care Power of Managing Broker document) Care Teams Roof Bolter Operator Relationship Specialty Start Date End Date Payam Claire DO [facility] [place] [address] PCP - General Family Medicine 09/08/23 documented as of this encounter
--- OUTSIDE RECORDS SUMMARY | 2024-03-13 06:12 | External Medical Summary | Summary of Care ---
Author Name Unknown Organization [facility] Address [address] [place] [address] Phone [phone] Care Team Providers Care Horologist Name Role Phone Payam Claire DO Primary Care Provider [phone] Encounter Details Date Type Department Care Team (Late st Contact Info) Description 03/05/2024 Orders Only Nephrology, [facility] [address] [place] [address] Gisele Daugherty MD 200 [facility] [place] [address] Allergies No known active allergiesdocumented as of this encounter (statuses as of 03/05/2024) Medications Medication Sig Dispensed Refills Start Date End Date Status Clopidogrel Bisulfate 75 MG Oral Tablet (pLAVix)Indications: Coronary artery disease involving [place]choopda coronary artery of mechoopda heart without angina pectoris Take 1 Tablet [...] Propionate 50 MCG/ACT Nasal Suspension Administer 1 [place] into nostril in the morning. 0 Active [...] Hour (Toprol XL)Indications:Coron alec artery disease involving mechoopda coronary artery of mechoopda heart without angina pectoris Take 0.5 Tablets [...] Tablet Sublingual (Nitrostat)Indicatio ns:Coronary artery disease involving mechoopda coronary artery of mechoopda heart without angina pectoris Place 1 Tablet [...] of stroke Coronary artery disease invo lving mechoopda coronary artery of mechoopda heart without angina pectoris Pacemaker AICD (automatic [...] 03/08/2024 3:00 PM EDT Office Visit Nephrology, [facility] [address] [place] [address] Gisele Daugherty MD [address] [address] 03/31/2024 2:00 PM EDT Office Visit Hematology/Oncology [facility] [place] [address] [phone] Roberto Camarena MD [address] [address] 04/12/2024 9:00 AM EDT Office Visit Family Practice [facility] [address] [address] Zeynep Amezcua PA-C [address] [address] 05/19/2024 10:00 AM EDT Imaging Radiology [facility] 1st [facility] [place] 132 [facility] [place] [address] 05/19/2024 10:30 AM EDT Imaging Vascular Lab, [facility] 2nd [facility] [place] [address] [place] [address] 05/26/2024 9:10 AM EDT Office Visit Vascular Surgery, [facility] 132 [facility] [place] [address] Alec Hinton MD [address] [place] [address] 06/21/2024 9:00 AM EDT Office Visit Cardiology, [facility] [address] [place] [address] Melanie Torres CRNP [address] [place] [address] 11/23/2024 1:30 PM EST Cardiac Studies Cardiology [address] [place] [address] [place], [facility] [address] [place] [address] Health Maintenance Due Date Last Done Comments [...] LAB OUTSIDE LAB (SEE SCANNED REPORT) HEMOGLOBIN, [id number] LAB OUTSIDE LAB (SEE SCANNED REPORT) PHOSPHORUS-OUTSID [...] Documents on File Type Date Recorded Patient Credit Interviewer Expl anation Power of Process Plant Operator 11/29/2019 POWER OF A TTORNEY Latest Code [...] on File Name Relationship [facility] Luis Troy Adult Child Health Care Age nt (per Health Care Power of Process Plant Operator document) Care Teams Horologist Relationship Specialty Start Date End Date Payam Claire DO [facility] [place] [address] PCP - General Family Medicine 09/08/23 documented as of this encounter
--- OUTSIDE RECORDS SUMMARY | 2024-03-13 06:12 | External Medical Summary | Summary of Care ---
Author Name Unknown Organization [facility] Address [address] [place] [address] Phone [phone] Care Team Providers Care Rn Vascular Name Role Phone Payam Claire DO Primary Care Provider [phone] Reason for Visit * Reason Onset Date Comments FYI 03/05/2024 Encounter Details Date Type Department Care Team (Late st Contact Info) Description 03/05/2024 Telephone Family Practice [facility] [place] 200 [facility] [place] [address] Payam [facility] DO 200 [facility] [address] FYI Allergies No known active allergiesdocumented as of this encounter (statuses as of 03/05/2024) Medications Medication Sig Dispensed Refills Start Date End Date Status Clopidogrel Bisulfate 75 MG Oral Tablet (pLAVix)Indications: Coronary artery disease involving shoshone-paiute coronary artery of shoshone[place]paiute heart without angina pectoris Take 1 Tablet [...] Propionate 50 MCG/ACT Nasal Suspension Administer 1 [place] into nostril in the morning. 0 Active [...] Hour (Toprol XL)Indications:Coron alec artery disease involving [place]osh[place]paiute coronary artery of shoshone[place]paiute heart without angina pectoris Take 0.5 Tablets [...] Tablet Sublingual (Nitrostat)Indicatio ns:Coronary artery disease involving shoshone[place]paiute coronary artery of shoshone[place]paiute heart without angina pectoris Place 1 Tablet [...] of stroke Coronary artery disease invo lving shoshone-paiute coronary artery of shoshone-paiute heart without angina pectoris Pacemaker AICD (automatic [...] received [place] trough and BMP 03/04/24 from [facility] via fax Labs collected on 03/03/24 [place] [...] - 03/05/2024 10:39 AM EDT John with [facility] reporting increase of weight. Patient up 3.5 lbs from 03/03/2024. Concerned about weight fluctuations and increased fatigue. Requesting to speak with shivam Lerma). documented in this encounter Plan of Treatment Upcoming Encounters Date Type Department Care Team (Late st Contact Info) Description 03/08/2024 3:00 PM EDT Office Visit Nephrology, [facility] [address] [place] [address] Gisele Daugherty MD [address] [place] [address] 03/31/2024 2:00 PM EDT Office Visit Hematology/Oncology [facility] [address] [phone] Roberto Camarena MD [address] [place] [address] 04/12/2024 9:00 AM EDT Office Visit Family Practice [facility] [address] [place] [address] Zeynep Amezcua PA-C [address] [place] [address] 05/19/2024 10:00 AM EDT Imaging Radiology [facility]st [facility] [place] 132 [facility] [place] [address] 05/19/2024 10:30 AM EDT [facility] [place] 132 [facility] [place] [address] 05/26/2024 9:10 AM EDT Office Visit Vascular Surgery, [facility] 132 [facility] [place] [address] Alec Hinton MD [address] [place] [address] 06/21/2024 9:00 AM EDT Office Visit Cardiology, [facility] 132 [facility] [place] [address] Melanie Torres CRNP 132 [facility] [place] [address] 11/23/2024 1:30 PM EST Cardiac Studies Cardiology [address] [place] [address] [place], [facility] 132 [facility] [place] [address] Health Maintenance Due Date Last Done Comments [...] Documents on File Type Date Recorded 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
--- OUTSIDE RECORDS SUMMARY | 2024-03-13 06:12 | External Medical Summary | Summary of Care ---
Author Name Unknown Organization [facility] Address [address] [place] [address] Phone [phone] Care Team Providers Care Tank Truck Driver Name Role Phone Payam Claire DO Primary Care Provider [phone] Reason for Visit * Reason Onset Date Comments Appointment 03/08/2024 Encounter Details Date Type Department Care Team (Late st Contact Info) Description 03/08/2024 Telephone Nephrology, [facility] [address] [place] [address] Gisele Daugherty MD [address] [place] [address] Appointment Allergies No known active allergiesdocumented as of this encounter (statuses as of 03/09/2024) Medications Medication Sig Dispensed Refills Start Date End Date Status Clopidogrel Bisulfate 75 MG Oral Tablet (pLAVix)Indications :Coronary artery disease involving bo[place] coronary artery of bo[place]te heart without angina pectoris Take 1 Tablet [...] Propionate 50 MCG/ACT Nasal Suspension Administer 1 [place] into nostril in the morning. 0 Active [...] 0 Active Apixaban 5 MG Oral Tablet (Eliquis)Indication s:Paroxysmal atrial fibrillation (HCC) Take 1 Tablet by mouth in the morning and 1 Tablet before bedtime. Please take 2 tablets of apixaban twice a day till October 03 2023 evening and starting October 04 2023 take 1 tablet twice a day. 0 10/02/2023 Active Sulfamethoxazole-Tr imethoprim 800-160 MG Oral Tablet (Bactrim DS) Take 1 Tablet by mouth once a day on Friday, Friday, and Friday only. 60 Tablet 5 10/10/2023 Active Vitamin D (Cholecalciferol) 50 MCG (2000 UT) Oral Capsule Take 4,000 Units by mouth daily. 28 Capsule 11 01/15/2024 Active Metoprolol Succinate ER 25 MG Oral Tablet Extended Release 24 Hour (Toprol XL)Indications:Tony nary artery disease involving bois forte coronary artery of bois forte heart without angina pectoris Take 0.5 Tablets by mouth at bedtime. 15 Tablet 5 01/29/2024 Active Nitroglycerin 0.4 MG Sublingual Tablet Sublingual (Nitrostat)Indicati ons:Coronary artery disease involving bois [place]te coronary artery of bois forte heart without angina pectoris Place 1 Tablet under the tongue every 5 minutes as needed for Pain, Chest. 25 Tablet 3 02/10/2024 Active Tacrolimus 1 MG Oral Capsule (Prograf) Take 2 Capsules by mouth in the morning and 2 Capsules before bedtime. 120 Capsule 3 03/08/2024 Active Torsemide 20 MG Oral Tablet (Demadex)Indication s:Chronic kidney disease, stage 3a (HCC) Take extra 40 mg as needed for wt gain > 3 bs 30 Tablet 5 03/08/2024 Active Torsemide 20 MG Oral Tablet (Demadex) Take 3 Tablets by mouth in the morning and 3 Tablets in the evening. 160 Tablet 5 03/08/2024 Active Potassium Chloride Rosita ER 20 MEQ Oral Tablet Extended Release Take 1 Tablet by mouth in the morning and 1 Tablet at noon and 1 Tablet before bedtime. 90 Tablet 11 03/08/2024 Active documented as of this encounter (statuses as of 03/09/2024) Active Problems Problem Noted Date Diagnosed Date [...] of stroke Coronary artery disease invo lving [place] coronary artery of bo[place]te heart without angina pectoris Pacemaker AICD (automatic cardioverter/defibrillator) pres ent Permanent atrial fibrillation documented as of this encounter (statuses as of 03/09/2024) Resolved Problems Problem Noted Date Diagnosed Date Resolved Date Stage 3b chronic kidney disease 09/25/2023 10/16/2023 Chronic kidney disease, stage 3a 10/14/2022 01/02/2024 Overview: Per CKD protocol Dyslipidemia, goal LDL below 70 01/31/2021 01/13/2023 documented as of this encounter (statuses as of 03/09/2024) Immunizations Name Administration Dates Next Due COVID-19 [...] encounter Miscellaneous Notes * Telephone Encounter - Allison Chew OSA - 03/08/2024 4:47 PM EDT Pt needs an appt set up for a clinic visit w/ MD. Needs to be within four weeks.(around 04/05/2024). Must be with MD only. Pt was okay with march 31-. Pt confirmed phone number on file is accurate. Please give pt a call to set up an appt. documented in this encounter Plan of Treatment Upcoming Encounters Date Type Department Care Team (Late st Contact Info) Description 03/31/2024 2:00 PM EDT Office Visit Hematology/Oncology [facility] [address] [place] [phone] Roberto Camarena MD 200 [facility] [place] [address] 04/12/2024 9:00 AM EDT Office Visit Family Practice [facility] [address] [place] [address] Zeynep Amezcua PA-C [address] [facility] [place] [address] 04/14/2024 10:40 AM EDT Office Visit Nephrology, [facility] [address] [address] Gisele Daugherty MD 200 [facility] [place] [address] 05/19/2024 10:00 AM EDT Imaging Radiology [facility] 1st [facility] 132 [facility] [place] [address] 05/19/2024 10:30 AM EDT Imaging Vascular Lab, [facility] 2nd [facility] [address] 05/26/2024 9:10 AM EDT Office Visit Vascular Surgery, [facility] 132 [facility] [place] [address] Alec Hinton MD [address] [facility], [place] [address] 06/21/2024 9:00 AM EDT Office Visit Cardiology, [facility] 132 [facility] [place] [address] Melanie Torres CRNP 132 [facility] [place] [address] 11/23/2024 1:30 PM EST Cardiac Studies Cardiology [address] [place] [address] [facility] 132 [facility] [place] [address] Health Maintenance Due Date Last Done Comments [...] Documents on File Type Date Recorded Patient Manager Nursing Expl anation Power of Crime Specialist 11/29/2019 POWER OF A TTORNEY Latest [...] Agents on File Name Relationship Healthcare Agent [facility] Communication Luis Troy Adult Child Health Care Age nt (per Health Care Power of Crime Specialist document) Care Teams Tank Truck Driver Relationship Specialty Start Date End Date Payam Claire DO 200 [facility] [place] [address] PCP - General Family Medicine 09/08/23 documented as of this encounter
--- OUTSIDE RECORDS SUMMARY | 2024-03-13 06:12 | External Medical Summary | Summary of Care ---
Author Name Unknown Organization [facility] Address [address] [place] [address] Phone [phone] Care Team Providers Care Business Banking Sales Assistant Name Role Phone Payam Claire DO Primary Care Provider [phone] Reason for Visit * Reason Onset Date Comments Outpatient Testing 03/09/2024 Encounter Details Date Type Department Care Team (Late st Contact Info) Description 03/09/2024 Telephone Nephrology, [facility] [address] [place] [address] Gisele Daugherty MD [address] [place] [address] Outpatient Testing Allergies No known active allergiesdocumented as of this encounter (statuses as of 03/09/2024) Medications Medication Sig Dispensed Refills Start Date End Date Status Clopidogrel Bisulfate 75 MG Oral Tablet (pLAVix)Indications :Coronary artery disease involving [place] coronary artery of [place] heart without angina pectoris Take 1 Tablet [...] Propionate 50 MCG/ACT Nasal Suspension Administer 1 [place] into nostril in the morning. 0 Active [...] Hour (Toprol XL)Indications:Tony nary artery disease involving [place] coronary artery of [place] heart without angina pectoris Take 0.5 Tablets by mouth at bedtime. 15 Tablet 5 01/29/2024 Active Nitroglycerin 0.4 MG Sublingual Tablet Sublingual (Nitrostat)Indicati ons:Coronary artery disease involving [place] coronary artery of [place] heart without angina pectoris Place 1 Tablet [...] of stroke Coronary artery disease invo lving [place] coronary artery of [place] heart without angina pectoris Pacemaker AICD (automatic [...] Telephone Encounter - Rosio Tomas RN - 03/09/2024 8:38 AM EDT Copy of instructions from visit 03/08/24 faxed to [facility]. Will also call to verify that they received these directions. Lab slips sent . Copy of these directions also sent with pt's son Luis following the visit. documented in this encounter Plan of Treatment Upcoming Encounters Date Type Department Care Team (Late st Contact Info) Description 03/31/2024 2:00 PM EDT Office Visit Hematology/Oncology [facility] [address] [phone] Roberto Camarena MD [address] [place] [address] 04/12/2024 9:00 AM EDT Office Visit Family Practice [facility] [place] [address] [place] [address] Zeynep Amezcua PA-C [address] [address] 04/22/2024 2:40 PM EDT Office Visit Nephrology, [facility] [address] [address] Gisele Daugherty MD [address] [address] 05/19/2024 10:00 AM EDT Imaging Radiology [facility] 1st [facility] [place] 132 [facility] [place] [address] 05/19/2024 10:30 AM EDT Imaging Vascular Lab, [facility] 2nd [facility] [place] 132 [facility] [place] [address] 05/26/2024 9:10 AM EDT Office Visit Vascular Surgery, [facility] 132 [facility] [place] [address] Alec [facility]inton MD [address] [facility] [address] 06/21/2024 9:00 AM EDT Office Visit Cardiology, [facility] 132 [facility] [place] [address] Melanie Torres CRNP [address] [place] [address] 11/23/2024 1:30 PM EST Cardiac Studies Cardiology [address] [place] [address] [facility] [place] [address] Scheduled Orders Name Type Priority Associated Diagnoses Orde r Schedule BASIC METABOLIC PANEL Lab Routine Monoclonal gammopathy Nephrotic syndrome Expected: 03/15/2024 (Approximate), Expires: 03/09/2025 TACROLIMUS LEVEL Lab Routine Monoclonal gammopathy Nephrotic syndrome Expected: 03/15/2024 (Approximate), Expires: 03/09/2025 ALBUMIN Lab Routine Monoclonal gammopathy Nephrotic syndrome Expected: 03/15/2024 (Approximate), Expires: 03/09/2025 CBC Lab Routine Monoclonal gammopathy Nephrotic syndrome Expected: 03/15/2024 (Approximate), Expires: 03/09/2025 Health Maintenance Due Date Last Done Comments [...] as of this encounter Visit Diagnoses Diagnosis Monoclonal gammopathy- Primary Monoclonal paraproteinemia Nephrotic syndrome Nephrotic syndrome with unspecified pathological lesion in kidney documented in this encounter Advance Directives Documents on File Type Date Recorded Patient Slurry Blender Expl anation Power of Methods Engineer 11/29/2019 POWER OF A TTORNEY Latest Code [...] Agents on File Name Relationship Healthcare Agent [facility] Luis Troy Adult Child Health Care Age nt (per Health Care Power of Methods Engineer document) Care Teams Business Banking Sales Assistant Relationship Specialty Start Date End Date Payam Claire DO [facility] [place] [address] PCP - General Family Medicine 09/08/23 documented as of this encounter
[2024-03-13 06:13] LABS: BUN Creatinine Ratio 16.5 (10-20); Calcium 8.7 mg/dl (8.6-10.3); Creatinine Clr Calc Pharmacy 26.5 ml/min; Est GFR (African American) 23.2 ml/min; Magnesium 1.9 mg/dl (1.7-2.4); Potassium 4.1 mmol/L (3.5-5.1)
[2024-03-13] MEDS: FLUoxetine HCL 10 MG CAP PO SCH (09:26)
[2024-03-13] MEDS: CHOLECALCIFEROL 25 MCG (1000 UNITS) TAB PO SCH (09:26)
[2024-03-13] MEDS: DOCUSATE SODIUM 100 MG CAP PO SCH (09:26)
[2024-03-13] MEDS: LORATADINE 10 MG TAB PO SCH (09:27)
[2024-03-13 09:54] LABS: A calco-baum cmplx NotReported Not Detected (NotDetected); Bact fragilis Not Reported Not Detected (NotDetected); Blood Culture Id Panel See PCR Comment (NotDetected); C auris Not Reported Not Detected (NotDetected); Calbicans Not Reported Not Detected (NotDetected); Candida glabrata Not Reported Not Detected (NotDetected); Candida krusei Not Reported Not Detected (NotDetected); Cneoformans/gatti Not Reported Not Detected (NotDetected); Cparapsilosis Not Reported Not Detected (NotDetected); E cloacae compx Not Reported Not Detected (NotDetected); Efaecalis Not Reported Not Detected (NotDetected); Efaecium Not Reported Not Detected (NotDetected); Enterobacterales Not Reported Not Detected (NotDetected); Escherichia coli Not Reported Not Detected (NotDetected); H influenzae Not Reported Not Detected (NotDetected); K aerogenes Not Reported Not Detected (NotDetected); Koxytoca Not Reported Not Detected (NotDetected); Kpneumoniae grp Not Reported Not Detected (NotDetected); Lmonocyt Not Reported Not Detected (NotDetected); N meningitidis Not Reported Not Detected (NotDetected); P aeruginosa Not Reported Not Detected (NotDetected); Proteus spp Not Reported Not Detected (NotDetected); Salmonella spp Not Reported Not Detected (NotDetected); Smarcescens Not Reported Not Detected (NotDetected); Staph lugdunensis Not Reported Not Detected (NotDetected); Staphaureus Not Reported Not Detected (NotDetected); Staphepi Not Reported DETECTED (NotDetected); Staphylococcus epidermidis DETECTED (NotDetected); Staphylococcus spp. DETECTED (NotDetected); Stenmaltophilia Not Reported Not Detected (NotDetected); Strep agal(GrpB) Not Reported Not Detected (NotDetected); Strep pneum Not Reported Not Detected (NotDetected); Strep pyog (GrpA) Not Reported Not Detected (NotDetected); Strep spp Not Reported Not Detected (NotDetected); mecAC Resistant Gene Not Detected (NotDetected)
[2024-03-13 10:13] LABS: Staph spp. Not Reported DETECTED (NotDetected)
[2024-03-13] MEDS: CLOPIDOGREL BISULFATE 75 MG TAB PO SCH (10:28)
--- NOTE | 2024-03-13 12:15 | Electrocardiogram Report ---
Test Reason : Blood Pressure : / mmHG Vent. Rate : 075 BPM Atrial Rate : 072 BPM P-R Int : 000 ms QRS Dur : 164 ms QT Int : 492 ms P-R-T Axes : 000 -54 069 degrees QTc Int : 549 ms Ventricular-paced rhythm Abnormal ECG When compared with ECG of 12-MAR-2024 11:14, Premature ventricular complexes are no longer Present Vent. rate has decreased BY 5 BPM Confirmed by Clinton Jaffe ([id number]) on 03/13/2024 12:15:09 PM Referred By: Payam Claire Confirmed By:Clinton Jaffe
--- NOTE | 2024-03-13 12:28 | Nephrology Consultation ---
Date of Consultation March 13, 2024 Assessment & Plan (1) Renal failure (ARF), acute on chronic: Patient with acute on chronic renal failure likely due to ischemic ATN in setting of Parainfluenza infection. Creatinine up to 2.8 from a baseline of 2.2. Patient is making urine and electrolytes are stable. No indication for dialysis. -Continue to monitor renal function with daily BMP -Hold torsemide today. -Check Prograf level (2) Chronic heart failure with preserved ejection fraction: Patient with CHF with preserved EF. Patient is saturating well on room air now. 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 Will hold torsemide today. 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 He was found to have acute kidney injury with creatinine of 2.8 from a baseline of around 2.2. Patient also found to be positive for parainfluenza. Today he feels slightly better. Daughter was at the bedside. Legs are slightly swollen. No shortness of breath. Mentation is back to baseline. He is making urine. Allergies Allergy/AdvReac Type Severity Reaction Status Date / Time No Known Allergies Allergy Unverified 10/06/23 15:42 Home Medications Medication Instructions Recorded Confirmed Type apixaban 5 mg tablet (Eliquis) 5 mg PO BID 08/09/22 03/12/24 History cholecalciferol (vitamin D3) 50 4,000 unit PO DAILY 08/09/22 03/12/24 History mcg (2,000 unit) tablet (Vitamin D3) clopidogrel 75 mg tablet 75 mg PO DAILY 08/09/22 03/12/24 History fluoxetine 10 mg capsule 10 mg PO DAILY 08/09/22 03/12/24 History fluticasone propionate 50 1 spray intranasal BID 08/09/22 03/12/24 History mcg/actuation nasal spray,suspension ketoconazole 2 % topical cream 1 applic topical BID PRN flares 08/09/22 03/12/24 History metoprolol succinate 25 mg 12.5 mg PO HS 08/09/22 03/12/24 History tablet,extended release 24 hr nitroglycerin 0.4 mg sublingual 0.4 mg sublingual UD PRN Chest Pain 08/09/22 03/12/24 History tablet rosuvastatin 10 mg tablet 10 mg PO HS 08/09/22 03/12/24 History acetaminophen 500 mg tablet 1,000 mg PO BID 09/23/23 03/12/24 History (Tylenol Extra Strength) docusate sodium 100 mg capsule 100 mg PO DAILY 09/23/23 03/12/24 History (Colace) loratadine 10 mg tablet 10 mg PO DAILY 09/23/23 03/12/24 History acetaminophen 325 mg tablet 650 mg PO Q4 PRN Fever Or Pain 10/06/23 03/12/24 History guaifenesin 400 mg tablet 400 mg PO Q6 PRN congestion/cough 10/06/23 03/12/24 History ketoconazole 2 % shampoo 1 ea topical 3XWK 10/06/23 03/12/24 History melatonin 3 mg tablet 3 mg PO HS PRN Insomnia 10/06/23 03/12/24 History sulfamethoxazole 800 1 tab PO MOWEFR 10/06/23 03/12/24 History mg-trimethoprim 160 mg tablet potassium chloride 20 mEq 20 meq PO TID 03/12/24 03/12/24 History tablet,extended release(part/cryst) tacrolimus 1 mg capsule, 2 mg PO BID 03/12/24 03/12/24 History immediate-release torsemide 20 mg tablet 40 mg PO DAILY PRN weight gain 03/12/24 03/12/24 History >3lbs torsemide 20 mg tablet 60 mg PO BID 03/12/24 03/12/24 History Patient History Medical History (Updated 03/12/24 @ 21:03 by Sissy Trevizo PA-C) Depression History of DVT (deep vein thrombosis) Chronic anemia Dementia Vascular dementia GMG neurology CKD (chronic kidney disease) stage 3, GFR 30-59 ml/min Nocturnal hypoxemia Stroke 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 manager 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 use of 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 Permanent atrial fibrillation HLD (hyperlipidemia) HTN (hypertension) CAD (coronary artery disease) History of ischemic cardiomyopathy Hematuria Generalized weakness COVID-19 Surgical History AICD (automatic cardioverter/defibrillator) present Status post biventricular pacemaker and defib Family History Other Family history non-contributory Social History Smoking Status: Never smoker Second Hand Exposure: No; Do You Dip or Chew Tobacco: No; Hx Alcohol Use: No Hx Substance Use: No Preferred Language: Jordanian Communication Ability: Effective Biomedical Equipment Support Specialist Required: No Beliefs That Will Affect Care: Yarsanism Yarsanism Beliefs: Hinduism Current Living Situation: Personal Care Facility Current Living Situation Comment: [facility] terminal manager care Feels Safe at Home: Yes Safety Concerns: Feels Safe At This Time Assistive Devices: Cane, Denture - Upper and Walker Review of Systems 2 Review of Systems: All other systems were reviewed and negative except as noted in HPI Physical Exam 2 Physical Exam: General exam: Appears comfortable, no acute distress HEENT: Pupils are equal and reactive to light Neck: No JVD, neck is supple trachea is midline Respiratory system: Clear breath sounds bilaterally. Gastrointestinal: Abdomen is soft, non distended, non tender, bowel sounds are present CVS: Regular rate and rhythm. No murmurs, rubs or gallops Musculoskeletal: No joint or muscle tenderness Extremities: Non tender, 1+ edema, peripheral pulses are present Neuro: Oriented, no tremors, no focal neurological deficits Skin: No rashes Results & Data Vital Signs (Past 12 Hours) Vital Signs Temp Pulse Resp BP Pulse Ox O2 Del Method 03/13/24 12:02 36.4 C L 81 18 128/82 97 Room Air 03/13/24 08:00 Room Air 03/13/24 07:35 36.5 C 80 19 134/77 97 Room Air 03/13/24 04:38 36.7 C 87 18 148/86 H 95 Room Air Laboratory Results 03/13/24 05:32 03/13/24 05:32 WBC 4.00 L RBC 2.52 L MCV 107.5 H MCH 35.7 H MCHC 33.2 RDW Std Deviation 56.3 H RDW Coeff of Tucker 14.5 Plt Count 98 L MPV 10.8 Phosphorus 3.0
[2024-03-13] MEDS: cefTRIAXone SODIUM 2,000 MG in DEXTROSE 5 % MINI-B 50 ML IV SCH (12:43)
--- NOTE | 2024-03-13 15:55 | Hospitalist Progress Note ---
Date of Service March 13, 2024 Assessment & Plan (1) AMS (altered mental status): (2) Dementia: (3) Elevated troponin: (4) Falls: (5) Hematoma: (6) URI (upper respiratory infection): (7) Abnormal CXR: (8) Primary membranous nephropathy with nephrotic syndrome: (9) Chronic heart failure with preserved ejection fraction: (10) Permanent atrial fibrillation: (11) History of DVT (deep vein thrombosis): (12) HTN (hypertension): (13) HLD (hyperlipidemia): (14) Chronic anemia: (15) Depression: Plan: Patient is 83 year old male with PMH CAD, history of dilated ischemic cardiomyopathy with now improved and preserved EF, biventricular pacemaker/defibrillator implantation, mitral insufficiency, permanent atrial fibrillation anticoagulated on Eliquis, history of CVA and nocturnal hypoxia presented to ER from [facility] with c/o increased confusion Altered Mental Status, acute metabolic and cephalopathy Secondary to possible right lower lobe pneumonia and is complicated by known dementia Has been started on intravenous Rocephin and doxycycline Clinically better with clearance of confusion Will continue current management Shortness of breath URI: Parainfluenza Abnromal CXR Possible Pneumonia as above Reported congestion and cough CXR: Cardiomegaly with pulmonary edema and small right pleural effusion. Right greater than left bibasilar opacities may represent asymmetric atelectasis versus pneumonia. procalcitonin: 0.15. Lactate WNL +parainfluenza on biofire respiratory panel Flutter valve, incentive spirometry, Mucinex Lung nodule 1.6 cm irregular subpleural nodule on right middle lobe CT chest pending-no pulmonary embolism, small left and moderate right pleural effusion with possible right atelectasis/bronchiolitis. 1.6 cm irregular subpleural nodule on the right middle lobe follow-up CT is recommended. Recurrent Falls Multiple hematomas CT head: no acute finding CT c-spine: Degenerative changes without evidence of acute bony injury. Large thyroid nodules are seen. If not previously evaluated, nonemergent thyroid ultrasound can be performed. CT ABD/PELVIS: There are few subcutaneous hematomas within the right lumbar region with the largest measuring 10.6 x 3.1 cm. Thickening and edema within the right gluteus kylie muscle. There may be a small intramuscular hematoma within the lower aspect of the right gluteus kylie muscle. No acute fractures within the abdomen or pelvis. Fall precautions PT/OT eval Hold Eliquis for now and reassess Discussed with the sister-educated about risk of bleeding with Eliquis and advised that he should not be taking that medicine any longer Elevated troponin: History of ischemic cardiomyopathy: CAD (coronary artery disease): History ischemic cardiomyopathy S/P pacer/defibrillator 10/07/2023 echo: EF: 55-55%, moderate concentric LVH, apical septum and apical inferior wall thinned and dyskinetic, moderate aortic valve sclerosis without significant stenosis, moderate mitral annular calcification, severe mitral regurgitation, moderate-severe tricuspid regurgitation, right ventricular systolic pressure elevated at 40-50 mmHg HS Troponin: 101-->107. 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 Been 2.2-2.6 Currently on Bactrim MWF as prophylaxis On tacrolimus. Tacrolimus level pending Nephrology consult-appreciate input and recommendation Will monitor PRP Chronic heart failure with preserved ejection fraction: + Pitting edema BLE Monitor I's and O's, daily weight Plan to continue oral torsemide Closely monitor BMP Permanent atrial fibrillation: Chronically anticoagulated on Eliquis Continue metoprolol Holding Eliquis for now given hematoma History DVT (deep venous thrombosis): History BLE DVT in 10/2023 Will hold Eliquis currently HTN (hypertension): Continue metoprolol Chronic anemia: Chronic thrombocytopenia H&H, platelets about baseline Monitor History Stroke: Continue Plavix, rosuvastatin History Abdominal aortic aneurysm: 5.1 cm Abdominal aortic aneurysm on prior imaging CT Abd/pelvis today: 5.8 x 5.1 cm infrarenal abdominal aortic aneurysm. Will need follow up Will maintain the blood pressure on the lower side Discussed with the sister in detail DVT Prophylaxis SCDs for now DNR/DNI as per discussion with patient and patient's son Follows with Dr Payam Claire for routine care Admission and Anticipated Discharge Date Admission Date: March 12, 2024 Subjective 03/13/2024 The patient was seen and examined in I telemetry unit in presence of the sister He has been feeling better and wants to be discharged Denies any significant symptoms Review of Systems Review of Systems: All systems reviewed and are unremarkable except as noted below Physical Exam Physical Exam: Lying in bed without any acute distress Constitutional: well developed, well nourished and + ill appearing Eyes: PERRL, conjunctivae normal, anicteric sclerae ENMT: external ear and nose normal, oropharynx normal Neck: trachea midline, no thyromegaly Respiratory: no respiratory distress Auscultation: + diminished lung sounds and + crackles (Bibasilar crackles more on the right than the left) Cardiovascular: Rate/Rhythm: regular rate and regular rhythm; not tachycardic Heart Sounds: normal S1, normal S2 and + murmur Extremities: + edema (Trace to 1+ edema bilaterally) Gastrointestinal (Abdomen): Inspection/Auscultation: normal bowel sounds; abdomen not distended Percussion/Palpation: abdomen soft; abdomen nontender Musculoskeletal: No acute arthritis involving any of the joint Neurologic: normal touch/pain/proprioception and moves all extremities; no focal motor deficits and not confused (No confusion) Lymphatic: no cervical or axillary lymphadenopathy Results & Data Results & Data Vital Signs (Past 12 Hours) Vital Signs Temp Pulse Resp BP Pulse Ox O2 Del Method 03/13/24 12:02 36.4 C L 81 18 128/82 97 Room Air 03/13/24 08:00 Room Air 03/13/24 07:35 36.5 C 80 19 134/77 97 Room Air 03/13/24 04:38 36.7 C 87 18 148/86 H 95 Room Air Laboratory Results Short CBC 03/13/24 Range/Units 05:32 WBC 4.00 L (4.8-10.8) K/ul Hgb 9.0 L (14.0-18.0) g/dl Hct 27.1 L (42.0-52.0) % Plt Count 98 L (130-400) K/uL BMP 03/13/24 05:32 Sodium 141 Potassium 4.1 Chloride 112 H Carbon Dioxide 23 BUN 46 H Creatinine 2.78 H Glucose 92 Calcium 8.7 Medications Administered Current Inpatient Medications Acetaminophen (Acetaminophen 500 Mg Tab) 1,000 mg PO BID [facility] Stop: 04/11/24 20:59 Last Admin: 03/13/24 09:25 Dose: 1,000 mg Acetaminophen (Acetaminophen 325 Mg Tab) 650 mg PO Q4H PRN PRN Reason: Pain or Fever Stop: 04/11/24 16:37 Clopidogrel Bisulfate (Clopidogrel Bisulfate 75 Mg Tab) 75 mg PO DAILY [facility] Stop: 04/12/24 08:59 Last Admin: 03/13/24 10:28 Dose: 75 mg Docusate Sodium (Docusate Sodium 100 Mg Cap) 100 mg PO DAILY [facility] Stop: 04/12/24 08:59 Last Admin: 03/13/24 09:26 Dose: Not Given Doxycycline Hyclate (Doxycycline Hyclate 100 Mg Cap) 100 mg PO BID [facility] Stop: 03/19/24 16:37 Last Admin: 03/13/24 09:25 Dose: 100 mg Fluoxetine HCl (Fluoxetine Hcl 10 Mg Cap) 10 mg PO DAILY [facility] Stop: 04/12/24 08:59 Last Admin: 03/13/24 09:26 Dose: 10 mg Fluticasone Propionate (Fluticasone Propionate Na Spr 16 Gm Btl) 2 sprays NA DAILY [facility] Stop: 04/11/24 16:37 Last Admin: 03/13/24 09:26 Dose: 2 sprays Guaifenesin (Guaifenesin 600 Mg Tabcr) 600 mg PO Q12 [facility] Stop: 04/11/24 20:59 Last Admin: 03/13/24 09:26 Dose: 600 mg Ceftriaxone Sodium 2,000 mg/ (Dextrose) 50 mls @ 100 mls/hr IV Q24H [facility]; Protocol Stop: 03/20/24 12:59 Last Infusion: 03/13/24 13:24 Dose: Infused Loratadine (Loratadine 10 Mg Tab) 10 mg PO DAILY [facility] Stop: 04/12/24 08:59 Last Admin: 03/13/24 09:27 Dose: 10 mg Metoprolol Succinate (Metoprolol Succ 25mg Ext Rel Tab) 12.5 mg PO HS [facility] Stop: 04/11/24 20:59 Last Admin: 03/12/24 21:27 Dose: 12.5 mg Ondansetron HCl (Ondansetron Inj 2 Mg/Ml 2 Ml Vial) 4 mg IV Q6H PRN PRN Reason: Nausea Stop: 04/11/24 16:37 Polyethylene Glycol (Polyethylene (Miralax) 17 Gm Pack) 17 gm PO DAILY PRN PRN Reason: Constipation Stop: 04/11/24 16:37 Potassium Chloride (Potassium Chloride Crtab 20 Meq Tabcr) 20 meq PO TID [facility] Stop: 04/11/24 20:59 Last Admin: 03/13/24 13:39 Dose: 20 meq Rosuvastatin Calcium (Rosuvastatin Calcium 10 Mg Tab) 10 mg PO HS [facility] Stop: 04/11/24 20:59 Last Admin: 03/12/24 21:27 Dose: 10 mg Tacrolimus (Tacrolimus 1 Mg Cap) 2 mg PO BID [facility] Stop: 04/11/24 20:59 Last Admin: 03/13/24 09:25 Dose: 2 mg Trimethoprim/Sulfamethoxazole (Sulfamethoxazole/Trimethoprim Ds 800/160mg Tab) 1 tab PO MOWEFR [facility] Stop: 04/14/24 08:59 Vitamin D (Cholecalciferol 25 Mcg (1000 Units) Tab) 100 mcg PO DAILY [facility] Stop: 04/12/24 08:59 Last Admin: 03/13/24 09:26 Dose: 100 mcg
[2024-03-14 06:29] LABS: BUN Creatinine Ratio 18.1 (10-20); Basophils # (auto) 0.04 K/uL (0.00-0.20); Calcium 8.7 mg/dl (8.6-10.3); Creatinine Clr Calc Pharmacy 29.1 ml/min; Eosinophils # (auto) 0.32 K/uL (0.00-0.50); Eosinophils % (auto) 7.6 %; Est GFR (African American) 25.8 ml/min; Est GFR (Non-African American) 22.3 ml/min; Hematocrit (blood only) 26.8 % (42.0-52.0); Immature Granulocytes # (auto) 0.01 K/uL (0.01-0.20); Immature Granulocytes % (auto) 0.2 %; Lymphocytes # (auto) 0.99 K/uL (1.20-3.40); Lymphocytes % (auto) 23.5 %; Magnesium 1.8 mg/dl (1.7-2.4); Mean Corpuscular Hgb Conc 33.6 g/dL (32.0-36.0); Mean Corpuscular Volume 104.3 fL (80.0-100.0); Mean Platelet Volume 10.9 fL (9.4-12.4); Monocytes # (auto) 0.47 K/uL (0.11-0.59); Monocytes % (auto) 11.2 %; Neutrophils # (auto) 2.38 K/uL (1.40-6.50); Neutrophils % (auto) 56.5 %; Phosphorus 3.1 mg/dl (2.5-4.9); Platelet Count 85 K/uL (130-400); Potassium 4.2 mmol/L (3.5-5.1); RDW Coefficient of Variation 14.1 % (11.5-14.5); RDW Standard Deviation 54.2 fL (36.4-46.3); Red Blood Count 2.57 M/uL (4.70-6.10); White Blood Count 4.21 K/ul (4.8-10.8)
[2024-03-14] MEDS ORDERED: METOPROLOL SUCC 25MG EXT REL TAB PO STA (08:26)
[2024-03-14] MEDS: METOPROLOL SUCC 25MG EXT REL TAB PO SCH (09:21)
--- NOTE | 2024-03-14 14:48 | Hospitalist Progress Note ---
Date of Service March 14, 2024 Assessment & Plan (1) AMS (altered mental status): (2) Dementia: (3) Elevated troponin: (4) Falls: (5) Hematoma: (6) URI (upper respiratory infection): (7) Abnormal CXR: (8) Primary membranous nephropathy with nephrotic syndrome: (9) Chronic heart failure with preserved ejection fraction: (10) Permanent atrial fibrillation: (11) History of DVT (deep vein thrombosis): (12) HTN (hypertension): (13) HLD (hyperlipidemia): (14) Chronic anemia: (15) Depression: Plan: Patient is 83 year old male with PMH CAD, history of dilated ischemic cardiomyopathy with now improved and preserved EF, biventricular pacemaker/defibrillator implantation, mitral insufficiency, permanent atrial fibrillation anticoagulated on Eliquis, history of CVA and nocturnal hypoxia presented to ER from [facility] with c/o increased confusion Altered Mental Status, acute metabolic and cephalopathy Secondary to possible right lower lobe pneumonia and is complicated by known dementia Has been started on intravenous Rocephin and doxycycline Clinically better with clearance of confusion Will continue current management He is back to his baseline mentally Shortness of breath URI: Parainfluenza Abnromal CXR Possible Pneumonia as above Reported congestion and cough CXR: Cardiomegaly with pulmonary edema and small right pleural effusion. Right greater than left bibasilar opacities may represent asymmetric atelectasis versus pneumonia. procalcitonin: 0.15. Lactate WNL +parainfluenza on biofire respiratory panel Flutter valve, incentive spirometry, Mucinex Minimal shortness of breath and has been saturating normally on room air Lung nodule 1.6 cm irregular subpleural nodule on right middle lobe CT chest pending-no pulmonary embolism, small left and moderate right pleural effusion with possible right atelectasis/bronchiolitis. 1.6 cm irregular subpleural nodule on the right middle lobe follow-up CT is recommended. Recurrent Falls Multiple hematomas CT head: no acute finding CT c-spine: Degenerative changes without evidence of acute bony injury. Large thyroid nodules are seen. If not previously evaluated, nonemergent thyroid ultrasound can be performed. CT ABD/PELVIS: There are few subcutaneous hematomas within the right lumbar region with the largest measuring 10.6 x 3.1 cm. Thickening and edema within the right gluteus kylie muscle. There may be a small intramuscular hematoma within the lower aspect of the right gluteus kylie muscle. No acute fractures within the abdomen or pelvis. Fall precautions PT/OT eval Hold Eliquis for now and reassess Discussed with the sister-educated about risk of bleeding with Eliquis and advised that he should not be taking that medicine any longer Elevated troponin: History of ischemic cardiomyopathy: CAD (coronary artery disease): History ischemic cardiomyopathy S/P pacer/defibrillator 10/07/2023 echo: EF: 55-55%, moderate concentric LVH, apical septum and apical inferior wall thinned and dyskinetic, moderate aortic valve sclerosis without significant stenosis, moderate mitral annular calcification, severe mitral regurgitation, moderate-severe tricuspid regurgitation, right ventricular systolic pressure elevated at 40-50 mmHg HS Troponin: 101-->107. 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 Been 2.2-2.6 Currently on Bactrim MWF as prophylaxis On tacrolimus. Tacrolimus level pending Nephrology consult-appreciate input and recommendation Will monitor PRP-creatinine has been improving and it is 2.54 as of 03/14/2024 Advised to drink more fluid and will monitor the level tomorrow Chronic heart failure with preserved ejection fraction: + Pitting edema BLE Monitor I's and O's, daily weight Plan to continue oral torsemide Closely monitor BMP Torsemide is on hold Permanent atrial fibrillation: Chronically anticoagulated on Eliquis Continue metoprolol Holding Eliquis for now given hematoma History DVT (deep venous thrombosis): History BLE DVT in 10/2023 Will hold Eliquis currently HTN (hypertension): Continue metoprolol Chronic anemia: Chronic thrombocytopenia H&H, platelets about baseline Monitor History Stroke: Continue Plavix, rosuvastatin History Abdominal aortic aneurysm: 5.1 cm Abdominal aortic aneurysm on prior imaging CT Abd/pelvis today: 5.8 x 5.1 cm infrarenal abdominal aortic aneurysm. Will need follow up Will maintain the blood pressure on the lower side Discussed with the sister in detail Blood pressure is slightly elevated-will increase Toprol-XL to 25 mg once a day DVT Prophylaxis SCDs for now DNR/DNI as per discussion with patient and patient's son Follows with Dr Payam Claire for routine care Admission and Anticipated Discharge Date Admission Date: March 12, 2024 Subjective 03/13/2024 The patient was seen and examined in I telemetry unit in presence of the sister He has been feeling better and wants to be discharged Denies any significant symptoms 03/14/2024 The patient was seen and examined in telemetry unit He has been feeling much better and is out of bed on a chair Denies any symptoms Review of Systems Review of Systems: All systems reviewed and are unremarkable except as noted below Physical Exam Physical Exam: Lying in bed without any acute distress Constitutional: well developed, well nourished and + ill appearing Eyes: PERRL, conjunctivae normal, anicteric sclerae ENMT: external ear and nose normal, oropharynx normal Neck: trachea midline, no thyromegaly Respiratory: no respiratory distress Auscultation: + diminished lung sounds and + crackles (Bibasilar crackles more on the right than the left) Cardiovascular: Rate/Rhythm: regular rate and regular rhythm; not tachycardic Heart Sounds: normal S1, normal S2 and + murmur Extremities: + edema (Trace to 1+ edema bilaterally) Gastrointestinal (Abdomen): Inspection/Auscultation: normal bowel sounds; abdomen not distended Percussion/Palpation: abdomen soft; abdomen nontender Musculoskeletal: No acute arthritis involving any of the joint Neurologic: normal touch/pain/proprioception and moves all extremities; no focal motor deficits and not confused (No confusion) Lymphatic: no cervical or axillary lymphadenopathy Results & Data Results & Data Vital Signs (Past 12 Hours) Vital Signs Temp Pulse Resp BP Pulse Ox O2 Del Method 03/14/24 11:18 Room Air 03/14/24 10:59 36.6 C 79 18 144/81 H 94 Room Air 03/14/24 08:03 36.6 C 81 18 152/91 H 98 Room Air 03/14/24 04:15 36.5 C 79 18 148/83 H 94 Room Air Laboratory Results Short CBC 03/14/24 Range/Units 05:27 WBC 4.21 L (4.8-10.8) K/ul Hgb 9.0 L (14.0-18.0) g/dl Hct 26.8 L (42.0-52.0) % Plt Count 85 L (130-400) K/uL BMP 03/14/24 05:27 Sodium 140 Potassium 4.2 Chloride 113 H Carbon Dioxide 23 BUN 46 H Creatinine 2.54 H Glucose 86 Calcium 8.7 Medications Administered Current Inpatient Medications Acetaminophen (Acetaminophen 500 Mg Tab) 1,000 mg PO BID [facility] Stop: 04/11/24 20:59 Last Admin: 03/14/24 09:19 Dose: 1,000 mg Acetaminophen (Acetaminophen 325 Mg Tab) 650 mg PO Q4H PRN PRN Reason: Pain or Fever Stop: 04/11/24 16:37 Clopidogrel Bisulfate (Clopidogrel Bisulfate 75 Mg Tab) 75 mg PO DAILY [facility] Stop: 04/12/24 08:59 Last Admin: 03/14/24 09:19 Dose: 75 mg Docusate Sodium (Docusate Sodium 100 Mg Cap) 100 mg PO DAILY [facility] Stop: 04/12/24 08:59 Last Admin: 03/14/24 09:20 Dose: 100 mg Doxycycline Hyclate (Doxycycline Hyclate 100 Mg Cap) 100 mg PO BID [facility] Stop: 03/19/24 16:37 Last Admin: 03/14/24 09:21 Dose: 100 mg Fluoxetine HCl (Fluoxetine Hcl 10 Mg Cap) 10 mg PO DAILY [facility] Stop: 04/12/24 08:59 Last Admin: 03/14/24 09:20 Dose: 10 mg Fluticasone Propionate (Fluticasone Propionate Na Spr 16 Gm Btl) 2 sprays NA DAILY [facility] Stop: 04/11/24 16:37 Last Admin: 03/14/24 09:21 Dose: 2 sprays Guaifenesin (Guaifenesin 600 Mg Tabcr) 600 mg PO Q12 [facility] Stop: 04/11/24 20:59 Last Admin: 03/14/24 09:21 Dose: 600 mg Ceftriaxone Sodium 2,000 mg/ (Dextrose) 50 mls @ 100 mls/hr IV Q24H [facility]; Protocol Stop: 03/20/24 12:59 Last Infusion: 03/14/24 14:07 Dose: Infused Loratadine (Loratadine 10 Mg Tab) 10 mg PO DAILY [facility] Stop: 04/12/24 08:59 Last Admin: 03/14/24 09:20 Dose: 10 mg Metoprolol Succinate (Metoprolol Succ 25mg Ext Rel Tab) 25 mg PO QAM [facility] Stop: 04/13/24 08:59 Last Admin: 03/14/24 09:21 Dose: 25 mg Ondansetron HCl (Ondansetron Inj 2 Mg/Ml 2 Ml Vial) 4 mg IV Q6H PRN PRN Reason: Nausea Stop: 04/11/24 16:37 Polyethylene Glycol (Polyethylene (Miralax) 17 Gm Pack) 17 gm PO DAILY PRN PRN Reason: Constipation Stop: 04/11/24 16:37 Potassium Chloride (Potassium Chloride Crtab 20 Meq Tabcr) 20 meq PO TID [facility] Stop: 04/11/24 20:59 Last Admin: 03/14/24 13:06 Dose: 20 meq Rosuvastatin Calcium (Rosuvastatin Calcium 10 Mg Tab) 10 mg PO HS [facility] Stop: 04/11/24 20:59 Last Admin: 03/13/24 20:22 Dose: 10 mg Tacrolimus (Tacrolimus 1 Mg Cap) 2 mg PO BID [facility] Stop: 04/11/24 20:59 Last Admin: 03/14/24 09:20 Dose: 2 mg Trimethoprim/Sulfamethoxazole (Sulfamethoxazole/Trimethoprim Ds 800/160mg Tab) 1 tab PO MOWEFR [facility] Stop: 04/14/24 08:59 Vitamin D (Cholecalciferol 25 Mcg (1000 Units) Tab) 100 mcg PO DAILY [facility] Stop: 04/12/24 08:59 Last Admin: 03/14/24 09:20 Dose: 100 mcg
[2024-03-15 06:45] LABS: BUN Creatinine Ratio 18.8 (10-20); Calcium 8.9 mg/dl (8.6-10.3); Creatinine Clr Calc Pharmacy 29.5 ml/min; Est GFR (African American) 26.3 ml/min; Est GFR (Non-African American) 22.7 ml/min; Magnesium 1.9 mg/dl (1.7-2.4); Potassium 4.6 mmol/L (3.5-5.1)
[2024-03-15] MEDS: SULFAMETHOXAZOLE/TRIMETHOPRIM DS 800/160MG TAB PO SCH (10:07)
--- NOTE | 2024-03-15 10:59 | Nephrology Progress Note ---
Date of Service March 15, 2024 Assessment & Plan Admission and Anticipated Discharge Date Admission Date: March 12, 2024 Subjective Assessment & Plan (1) Renal failure (ARF), acute on chronic: Patient with acute on chronic renal failure likely due to ischemic ATN in setting of Parainfluenza infection. Creatinine up to 2.8 from a baseline of 2.2. Now is 2.5 so really not much acute Component and is mainly CKD. Patient is making urine and electrolytes are stable. No indication for dialysis. -Continue to monitor renal function with daily BMP restart torsemide from tomorrow same dose 60 bid as before. Hold Kcl for today but restart same dose as before once torsemide restarted. Stable for discharge from renal standpoint. Prograf level--03/12 level still pending so not really of clinical use. (2) Chronic heart failure with preserved ejection fraction: Patient with CHF with preserved EF. Patient is saturating well on room air now. 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 Continue to monitor input output and daily weight if able S--feels better. Wants to get out of Hospital. Physical Exam Physical Exam: General exam: Appears comfortable, no acute distress HEENT: Pupils are equal and reactive to light Neck: No JVD, neck is supple trachea is midline Respiratory system: Clear breath sounds bilaterally. Gastrointestinal: Abdomen is soft, non distended, non tender, bowel sounds are present CVS: Regular rate and rhythm. No murmurs, rubs or gallops Musculoskeletal: No joint or muscle tenderness Extremities: Non tender, 1+ edema, peripheral pulses are present Neuro: Oriented, no tremors, no focal neurological deficits Skin: No rashes Results & Data Vital Signs (Past 12 Hours) Vital Signs Temp Pulse Resp BP BP Pulse Ox O2 Del Method 03/15/24 10:28 36.3 C L 78 17 146/90 H 96 Room Air 03/15/24 08:21 Room Air 03/15/24 07:27 36.5 C 71 16 147/89 H 98 Room Air 03/15/24 02:48 36.9 C 76 18 130/74 96 Room Air 03/14/24 23:17 36.5 C 82 19 121/78 94 Room Air
--- NOTE | 2024-03-15 12:31 | Discharge Summary ---
Date of Service March 15, 2024 Admission HPI Per Admitting Provider Patient is 83 year old male with PMH CAD, history of dilated ischemic cardiomyopathy with now improved and preserved EF, biventricular pacemaker/defibrillator implantation, mitral insufficiency, permanent atrial fibrillation anticoagulated on Eliquis, history of CVA and nocturnal hypoxia presented to ER from [facility] with c/o increased confusion. Limited history obtained from patient secondary to mental status. History obtained from patient's son as well and inpatient and outpatient chart review. History recurrent falls. Reported fall last week and since with noted bruising to back. Reported from staff he was more confused today, didn't know where he was and they thought his speech was slurred. Son reports chronic BLE edema. Son feels has had increased BLE edema more recently. Patient states has been having rhinorrhea for past week. States coughing yesterday and he isn't able to bring anything up. Son states cough sounds wet today. States had nose bleed last week that was "little drips" for 24 hours and has since resolved. Denies known fever/chills, N/V/D, CP, SOB, sore throat, choking, otalgia, abdominal pain, increased weakness, rashes, urinary symptoms. Admission Exam Per Admitting Provider Physical Exam: General: chronic ill appearing elderly male no distress, WDWN Head: normocephalic, +abrasions scalp Eyes: PERRL, EOM's intact, conjunctiva non-injected, anicteric ENT: normal inspection external ears, nose, mucous membranes moist Neck: supple, trachea midline Lungs: clear, no respiratory distress, no wheezing/rhonchi/rales CV: RRR, + murmur, 2+ pretibial edema Abd: normal BS, soft, non-tender Back: +ecchymosis entire low back extending to bilateral flank, non-tender to palpation, no spinous process tenderness Ext: no cyanosis, no calf tenderness Neuro: Alert, oriented to person only, no focal deficits noted, normal affect Skin: warm, dry, +skin tear right lower back Principal Diagnosis Change in mental status, back to baseline, possible pneumonia, parainfluenza infection, atrial fibrillation-off Eliquis due to risk of bleeding from recurrent falls, chronic kidney disease Discharge Exam Lying in bed without any acute distress Constitutional well developed and well nourished; not ill appearing Eyes PERRL, conjunctivae normal, anicteric sclerae ENMT external ear and nose normal, oropharynx normal Neck trachea midline, no thyromegaly Respiratory no respiratory distress Auscultation: + diminished lung sounds and + crackles (Bibasilar crackles more on the right than the left) Cardiovascular Rate/Rhythm: regular rate and regular rhythm; not tachycardic Heart Sounds: normal S1, normal S2 and + murmur Extremities: + edema (Trace to 1+ edema bilaterally) Gastrointestinal (Abdomen) Inspection/Auscultation: normal bowel sounds; abdomen not distended Percussion/Palpation: abdomen soft; abdomen nontender Neurologic normal touch/pain/proprioception and moves all extremities; no focal motor deficits and not confused (No confusion) Lymphatic no cervical or axillary lymphadenopathy Discharge Data Allergies Allergy/AdvReac Type Severity Reaction Status Date / Time No Known Allergies Allergy Unverified 10/06/23 15:42 Consultations 03/12/24 13:39 ED Decision to Admit Stat 03/12/24 16:38 Consult Nephrology Routine Ordered Studies 03/12/24 11:47 CT abd pelvis wo con Stat CT cervical spine wo con Stat CT head/brain wo con Stat 03/12/24 14:34 CT chest diagnostic wo con Urgent Hospital Course (1) AMS (altered mental status): (2) Dementia: (3) Elevated troponin: (4) Falls: (5) Hematoma: (6) URI (upper respiratory infection): (7) Abnormal CXR: (8) Primary membranous nephropathy with nephrotic syndrome: (9) Chronic heart failure with preserved ejection fraction: (10) Permanent atrial fibrillation: (11) History of DVT (deep vein thrombosis): (12) HTN (hypertension): (13) HLD (hyperlipidemia): (14) Chronic anemia: (15) Depression: Patient is 83 year old male with PMH CAD, history of dilated ischemic cardiomyopathy with now improved and preserved EF, biventricular pacemaker/defibrillator implantation, mitral insufficiency, permanent atrial fibrillation anticoagulated on Eliquis, history of CVA and nocturnal hypoxia presented to ER from [facility] with c/o increased confusion Altered Mental Status, acute metabolic and cephalopathy Secondary to possible right lower lobe pneumonia and is complicated by known dementia Has been started on intravenous Rocephin and doxycycline Clinically better with clearance of confusion Will continue current management He is back to his baseline mentally Shortness of breath URI: Parainfluenza Abnromal CXR Possible Pneumonia as above Reported congestion and cough CXR: Cardiomegaly with pulmonary edema and small right pleural effusion. Right greater than left bibasilar opacities may represent asymmetric atelectasis versus pneumonia. procalcitonin: 0.15. Lactate WNL +parainfluenza on biofire respiratory panel Flutter valve, incentive spirometry, Mucinex Minimal shortness of breath and has been saturating normally on room air Will continue with the oral doxycycline for 6 more days He has been on suppressive dose of Bactrim DS which will be continued Lung nodule 1.6 cm irregular subpleural nodule on right middle lobe CT chest pending-no pulmonary embolism, small left and moderate right pleural effusion with possible right atelectasis/bronchiolitis. 1.6 cm irregular subpleural nodule on the right middle lobe follow-up CT is recommended. Discussed with the son about a follow-up CAT scan in about 6 weeks to 3 months Thyroid swelling He will also need to have a follow-up ultrasound of the thyroid gland as an outpatient Recurrent Falls Multiple hematomas CT head: no acute finding CT c-spine: Degenerative changes without evidence of acute bony injury. Large thyroid nodules are seen. If not previously evaluated, nonemergent thyroid ultrasound can be performed. CT ABD/PELVIS: There are few subcutaneous hematomas within the right lumbar region with the largest measuring 10.6 x 3.1 cm. Thickening and edema within the right gluteus kylie muscle. There may be a small intramuscular hematoma within the lower aspect of the right gluteus kylie muscle. No acute fractures within the abdomen or pelvis. Fall precautions PT/OT eval Hold Eliquis for now and reassess Discussed with the sister-educated about risk of bleeding with Eliquis and advised that he should not be taking that medicine any longer Discussed with Dr. Cat and he suggested not to restart Eliquis. Elevated troponin: History of ischemic cardiomyopathy: CAD (coronary artery disease): History ischemic cardiomyopathy S/P pacer/defibrillator 10/07/2023 echo: EF: 55-55%, moderate concentric LVH, apical septum and apical inferior wall thinned and dyskinetic, moderate aortic valve sclerosis without significant stenosis, moderate mitral annular calcification, severe mitral regurgitation, moderate-severe tricuspid regurgitation, right ventricular systolic pressure elevated at 40-50 mmHg HS Troponin: 101-->107. 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 Been 2.2-2.6 Currently on Bactrim MWF as prophylaxis On tacrolimus. Tacrolimus level pending Nephrology consult-appreciate input and recommendation Will monitor PRP-creatinine has been improving and it is 2.54 as of 03/14/2024 Advised to drink more fluid and will monitor the level tomorrow Appreciate nephrology recommendation Chronic heart failure with preserved ejection fraction: + Pitting edema BLE Monitor I's and O's, daily weight Plan to continue oral torsemide Closely monitor BMP Torsemide is on hold-will restart from tomorrow Permanent atrial fibrillation: Chronically anticoagulated on Eliquis Continue metoprolol Holding Eliquis for now given hematoma Metoprolol dose has been increased to 25 mg Eliquis has been on hold History DVT (deep venous thrombosis): History BLE DVT in 10/2023 Will hold Eliquis currently HTN (hypertension): Continue metoprolol Chronic anemia: Chronic thrombocytopenia H&H, platelets about baseline Monitor History Stroke: Continue Plavix, rosuvastatin History Abdominal aortic aneurysm: 5.1 cm Abdominal aortic aneurysm on prior imaging CT Abd/pelvis today: 5.8 x 5.1 cm infrarenal abdominal aortic aneurysm. Will need follow up Will maintain the blood pressure on the lower side Discussed with the sister in detail Blood pressure is slightly elevated-will increase Toprol-XL to 25 mg once a day DVT Prophylaxis SCDs for now DNR/DNI as per discussion with patient and patient's son Follows with Dr Payam Claire for routine care Total Time Total Time Spent Total Time Spent (In Minutes): 45 minutes Discharge Plan Discharge Items Patient Disposition: Hospice - Medical Facility Reason For Visit: AMS Discharge Diagnosis: Change in mental status, back to baseline, possible pneumonia, parainfluenza infection, recurrent falls, chronic kidney disease Condition on Discharge: Fair Activity: Resume your previous activity Non-emergency contact: Primary Care Provider Call non-emergency contact if: you have any medication questions and your symptoms worsen Follow-up/Referrals: Payam Claire, DO [Primary Care Provider] - (Your doctor office will call you with an appointment within 7 days) Diet: Heart Healthy and Low Sodium (2gm) Addtl Attending Provider Instructions: Please take precautions to avoid falls Finish the course of antibiotic Take your medications as advised Your metoprolol dose has been increased to 25 mg from 12.5 mg to better control of blood pressure Eliquis has been stopped because risk of falling and more bleeding Please keep appointments with the healthcare provider Will will need outpatient ultrasound for large thyroid nodules and Will need to have a CAT scan in about 6 weeks to 3 months for 1.6 cm irregular subpleural nodule on the right middle lobe Pending Studies at Discharge: Yes Studies:: Repeat blood culture Stand-Alone Forms: My [facility] Skilled Items Patient informed of condition?: Yes DNR: Yes Discharge Level of Care: Other Communicable Disease: No Discharge Prognosis: Stable Lines: None Urinary Catheter: No Medications and DC Order Prescriptions: New doxycycline hyclate 100 mg Capsule 100 mg PO BID Qty: 12 0RF Continued acetaminophen [Tylenol Extra Strength] 500 mg Tablet 1,000 mg PO BID docusate sodium [Colace] 100 mg Capsule 100 mg PO DAILY loratadine 10 mg Tablet 10 mg PO DAILY clopidogrel 75 mg tablet 75 mg PO DAILY fluoxetine 10 mg capsule 10 mg PO DAILY fluticasone propionate 50 mcg/actuation spray,suspension 1 spray INTRANASAL BID nitroglycerin 0.4 mg tablet, sublingual 0.4 mg sublingual UD PRN (Reason: Chest Pain) Rx Instructions: 1 tab under tongue every 5 min for 3 doses as needed for chest pain,if no relief call ketoconazole 2 % cream 1 applic TOPICAL BID PRN (Reason: flares) Rx Instructions: apply to behind ears as needed for seborrheic dernatitis flares rosuvastatin 10 mg tablet 10 mg PO HS cholecalciferol (vitamin D3) [Vitamin D3] 50 mcg (2,000 unit) Tablet 4,000 unit PO DAILY acetaminophen 325 mg Tablet 650 mg PO Q4 MDD 3g PRN (Reason: Fever Or Pain) melatonin 3 mg Tablet 3 mg PO HS PRN (Reason: Insomnia) guaifenesin 400 mg Tablet 400 mg PO Q6 PRN (Reason: congestion/cough) ketoconazole 2 % Shampoo 1 ea TOPICAL [id number] Rx Instructions: apply topically to scalp and behind ears 2-3 times per week. leave on 3-5 minutes before rinsing sulfamethoxazole-trimethoprim 800-160 mg tablet 1 tab PO MOWEFR torsemide 20 mg Tablet 40 mg PO DAILY PRN (Reason: weight gain >3lbs ) tacrolimus 1 mg Capsule 2 mg PO BID torsemide 20 mg tablet 60 mg PO BID potassium chloride 20 mEq tablet,ER particles/crystals 20 meq PO TID Changed metoprolol succinate 25 mg tablet extended release 24 hr 25 mg PO HS Qty: 30 0RF Discontinued Eliquis 5 mg tablet 5 mg PO BID Discharge Orders: Discharge Order (Routine); Ordered 03/15/24 Ordered By: Mara Barfield/Other Patient Handouts: Apixaban Oral Tablet Admission Data Admit Date/Time: 03/12/24 14:32 Attending Provider: Mara Sawyer Admit Provider: Parish Monk Primary Care Provider: Payam Claire Other Providers: Parish Monk; Jethro Smith Other Interventions: Discharge Summary Assessment (RN) Last Done: 03/15/24 13:03
--- NOTE | 2024-03-15 13:06 | Hospitalist Progress Note ---
Date of Service March 15, 2024 Assessment & Plan (1) AMS (altered mental status): (2) Dementia: (3) Elevated troponin: (4) Falls: (5) Hematoma: (6) URI (upper respiratory infection): (7) Abnormal CXR: (8) Primary membranous nephropathy with nephrotic syndrome: (9) Chronic heart failure with preserved ejection fraction: (10) Permanent atrial fibrillation: (11) History of DVT (deep vein thrombosis): (12) HTN (hypertension): (13) HLD (hyperlipidemia): (14) Chronic anemia: (15) Depression: Plan: Patient is 83 year old male with PMH CAD, history of dilated ischemic cardiomyopathy with now improved and preserved EF, biventricular pacemaker/defibrillator implantation, mitral insufficiency, permanent atrial fibrillation anticoagulated on Eliquis, history of CVA and nocturnal hypoxia presented to ER from [facility] with c/o increased confusion Altered Mental Status, acute metabolic and cephalopathy Secondary to possible right lower lobe pneumonia and is complicated by known dementia Has been started on intravenous Rocephin and doxycycline Clinically better with clearance of confusion Will continue current management He is back to his baseline mentally Shortness of breath URI: Parainfluenza Abnromal CXR Possible Pneumonia as above Reported congestion and cough CXR: Cardiomegaly with pulmonary edema and small right pleural effusion. Right greater than left bibasilar opacities may represent asymmetric atelectasis versus pneumonia. procalcitonin: 0.15. Lactate WNL +parainfluenza on biofire respiratory panel Flutter valve, incentive spirometry, Mucinex Minimal shortness of breath and has been saturating normally on room air Will continue with the oral doxycycline for 6 more days He has been on suppressive dose of Bactrim DS which will be continued Lung nodule 1.6 cm irregular subpleural nodule on right middle lobe CT chest pending-no pulmonary embolism, small left and moderate right pleural effusion with possible right atelectasis/bronchiolitis. 1.6 cm irregular subpleural nodule on the right middle lobe follow-up CT is recommended. Discussed with the son about a follow-up CAT scan in about 6 weeks to 3 months Recurrent Falls Multiple hematomas CT head: no acute finding CT c-spine: Degenerative changes without evidence of acute bony injury. Large thyroid nodules are seen. If not previously evaluated, nonemergent thyroid ultrasound can be performed. CT ABD/PELVIS: There are few subcutaneous hematomas within the right lumbar region with the largest measuring 10.6 x 3.1 cm. Thickening and edema within the right gluteus kylie muscle. There may be a small intramuscular hematoma within the lower aspect of the right gluteus kylie muscle. No acute fractures within the abdomen or pelvis. Fall precautions PT/OT eval Hold Eliquis for now and reassess Discussed with the sister-educated about risk of bleeding with Eliquis and advised that he should not be taking that medicine any longer Discussed with the son about Eliquis and he will inform Dr. Cat about it Elevated troponin: History of ischemic cardiomyopathy: CAD (coronary artery disease): History ischemic cardiomyopathy S/P pacer/defibrillator 10/07/2023 echo: EF: 55-55%, moderate concentric LVH, apical septum and apical inferior wall thinned and dyskinetic, moderate aortic valve sclerosis without significant stenosis, moderate mitral annular calcification, severe mitral regurgitation, moderate-severe tricuspid regurgitation, right ventricular systolic pressure elevated at 40-50 mmHg HS Troponin: 101-->107. 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 Been 2.2-2.6 Currently on Bactrim MWF as prophylaxis On tacrolimus. Tacrolimus level pending Nephrology consult-appreciate input and recommendation Will monitor PRP-creatinine has been improving and it is 2.54 as of 03/14/2024 Advised to drink more fluid and will monitor the level tomorrow Appreciate nephrology recommendation Chronic heart failure with preserved ejection fraction: + Pitting edema BLE Monitor I's and O's, daily weight Plan to continue oral torsemide Closely monitor BMP Torsemide is on hold-will restart from tomorrow Permanent atrial fibrillation: Chronically anticoagulated on Eliquis Continue metoprolol Holding Eliquis for now given hematoma Metoprolol dose has been increased to 25 mg Eliquis has been on hold History DVT (deep venous thrombosis): History BLE DVT in 10/2023 Will hold Eliquis currently HTN (hypertension): Continue metoprolol Chronic anemia: Chronic thrombocytopenia H&H, platelets about baseline Monitor History Stroke: Continue Plavix, rosuvastatin History Abdominal aortic aneurysm: 5.1 cm Abdominal aortic aneurysm on prior imaging CT Abd/pelvis today: 5.8 x 5.1 cm infrarenal abdominal aortic aneurysm. Will need follow up Will maintain the blood pressure on the lower side Discussed with the sister in detail Blood pressure is slightly elevated-will increase Toprol-XL to 25 mg once a day DVT Prophylaxis SCDs for now DNR/DNI as per discussion with patient and patient's son Follows with Dr Payam Claire for routine care Admission and Anticipated Discharge Date Admission Date: March 12, 2024 Subjective 03/13/2024 The patient was seen and examined in I telemetry unit in presence of the sister He has been feeling better and wants to be discharged Denies any significant symptoms 03/14/2024 The patient was seen and examined in telemetry unit He has been feeling much better and is out of bed on a chair Denies any symptoms 03/15/2024 The patient was seen and examined in telemetry unit He has been feeling much better and wants to leave the hospital Denies any significant symptoms No cough, no shortness of breath and no abdominal pain nausea and or vomiting Review of Systems Review of Systems: All systems reviewed and are unremarkable except as noted below Physical Exam Physical Exam: Lying in bed without any acute distress Constitutional: well developed and well nourished; not ill appearing Eyes: PERRL, conjunctivae normal, anicteric sclerae ENMT: external ear and nose normal, oropharynx normal Neck: trachea midline, no thyromegaly Respiratory: no respiratory distress Auscultation: + diminished lung sounds and + crackles (Bibasilar crackles more on the right than the left) Cardiovascular: Rate/Rhythm: regular rate and regular rhythm; not tachycardic Heart Sounds: normal S1, normal S2 and + murmur Extremities: + edema (Trace to 1+ edema bilaterally) Gastrointestinal (Abdomen): Inspection/Auscultation: normal bowel sounds; abdomen not distended Percussion/Palpation: abdomen soft; abdomen nontender Musculoskeletal: No acute arthritis involving any of the joint Neurologic: normal touch/pain/proprioception and moves all extremities; no focal motor deficits and not confused (No confusion) Lymphatic: no cervical or axillary lymphadenopathy Results & Data Results & Data Vital Signs (Past 12 Hours) Vital Signs Temp Pulse Pulse Resp BP BP Pulse Ox 03/15/24 12:41 36.3 C L 78 17 146/90 H 147/89 H 96 03/15/24 11:20 75 03/15/24 10:28 36.3 C L 78 17 146/90 H 96 03/15/24 08:21 03/15/24 07:27 36.5 C 71 16 147/89 H 98 03/15/24 02:48 36.9 C 76 18 130/74 96 O2 Del Method 03/15/24 12:41 03/15/24 11:20 03/15/24 10:28 Room Air 03/15/24 08:21 Room Air 03/15/24 07:27 Room Air 03/15/24 02:48 Room Air Laboratory Results BMP 03/15/24 05:36 Sodium 142 Potassium 4.6 Chloride 112 H Carbon Dioxide 24 BUN 47 H Creatinine 2.50 H Glucose 88 Calcium 8.9 Medications Administered Current Inpatient Medications Acetaminophen (Acetaminophen 500 Mg Tab) 1,000 mg PO BID MARIMAR Stop: 04/11/24 20:59 Last Admin: 03/15/24 10:03 Dose: 1,000 mg Acetaminophen (Acetaminophen 325 Mg Tab) 650 mg PO Q4H PRN PRN Reason: Pain or Fever Stop: 04/11/24 16:37 Clopidogrel Bisulfate (Clopidogrel Bisulfate 75 Mg Tab) 75 mg PO DAILY MARIMAR Stop: 04/12/24 08:59 Last Admin: 03/15/24 10:08 Dose: 75 mg Docusate Sodium (Docusate Sodium 100 Mg Cap) 100 mg PO DAILY MARIMAR Stop: 04/12/24 08:59 Last Admin: 03/15/24 10:06 Dose: 100 mg Doxycycline Hyclate (Doxycycline Hyclate 100 Mg Cap) 100 mg PO BID MARIMAR Stop: 03/19/24 16:37 Last Admin: 03/15/24 10:04 Dose: 100 mg Fluoxetine HCl (Fluoxetine Hcl 10 Mg Cap) 10 mg PO DAILY MARIMAR Stop: 04/12/24 08:59 Last Admin: 03/15/24 10:05 Dose: 10 mg Fluticasone Propionate (Fluticasone Propionate Na Spr 16 Gm Btl) 2 sprays NA DAILY MARIMAR Stop: 04/11/24 16:37 Last Admin: 03/15/24 10:08 Dose: 2 sprays Guaifenesin (Guaifenesin 600 Mg Tabcr) 600 mg PO Q12 MARIMAR Stop: 04/11/24 20:59 Last Admin: 03/15/24 10:09 Dose: 600 mg Ceftriaxone Sodium 2,000 mg/ (Dextrose) 50 mls @ 100 mls/hr IV Q24H [facility]; Protocol Stop: 03/20/24 12:59 Last Infusion: 03/14/24 14:07 Dose: Infused Loratadine (Loratadine 10 Mg Tab) 10 mg PO DAILY MARIMAR Stop: 04/12/24 08:59 Last Admin: 03/15/24 10:07 Dose: 10 mg Metoprolol Succinate (Metoprolol Succ 25mg Ext Rel Tab) 25 mg PO QAM MARIMAR Stop: 04/13/24 08:59 Last Admin: 03/15/24 10:06 Dose: 25 mg Ondansetron HCl (Ondansetron Inj 2 Mg/Ml 2 Ml Vial) 4 mg IV Q6H PRN PRN Reason: Nausea Stop: 04/11/24 16:37 Polyethylene Glycol (Polyethylene (Miralax) 17 Gm Pack) 17 gm PO DAILY PRN PRN Reason: Constipation Stop: 04/11/24 16:37 Potassium Chloride (Potassium Chloride Crtab 20 Meq Tabcr) 20 meq PO TID MARIMAR Stop: 04/11/24 20:59 Last Admin: 03/15/24 10:03 Dose: 20 meq Rosuvastatin Calcium (Rosuvastatin Calcium 10 Mg Tab) 10 mg PO HS MARIMAR Stop: 04/11/24 20:59 Last Admin: 03/14/24 20:51 Dose: 10 mg Tacrolimus (Tacrolimus 1 Mg Cap) 2 mg PO BID MARIMAR Stop: 04/11/24 20:59 Last Admin: 03/15/24 10:05 Dose: 2 mg Trimethoprim/Sulfamethoxazole (Sulfamethoxazole/Trimethoprim Ds 800/160mg Tab) 1 tab PO MOWEFR MARIMAR Stop: 04/14/24 08:59 Last Admin: 03/15/24 10:07 Dose: 1 tab Vitamin D (Cholecalciferol 25 Mcg (1000 Units) Tab) 100 mcg PO DAILY [facility] Stop: 04/12/24 08:59 Last Admin: 03/15/24 10:07 Dose: 100 mcg
== END 2024-03-15 13:49 | disposition hospice, inpatient (51) | DRG 193 ==
LOC: ED 10:47 → 4W 14:32 → SUATTDRO 14:32 → 4W 15:44

== ENCOUNTER 2024-05-18 10:06 | Inpatient (IN) ==
--- NOTE | 2024-05-18 10:18 | Emergency Department Note ---
Impression & Plan Acute on chronic heart failure with preserved ejection fraction (HFpEF), Elevated troponin, Fall, JOHN (acute kidney injury), Laceration of scalp ED Provider Note NAME: CINTIA MAYO AGE: 83 SEX: M : 1940 ARRIVES VIA: Ambulance INFORMANT: Patient ED PROVIDER(S): Garrick Rosario DO CHIEF COMPLAINT: fall HPI: Patient is an 83-year-old male with a past medical history of depression, DVT, stroke, ischemic cardiomyopathy, CHF who presents the ER following a fall getting out of the shower per report. He did hit his head and there was positive loss consciousness per EMS. Patient denies any change in vision. No neck pain. No chest pain, shortness of breath, nausea, vomiting or diarrhea. No dysuria, urgency or frequency. No other exacerbating or remitting factors. No tingling or numbness in the arms or legs. ADDITIONAL HISTORY OBTAINED: Per HPI Chronic Medical/Social Conditions Affecting Care: Per HPI PAST MEDICAL HISTORY:See Below PAST SURGICAL HISTORY:See Below FAMILY HISTORY:See Below SOCIAL HISTORY:See Below HOME MEDICATIONS:See Below ALLERGIES:See Below VITALS:See Below PHYSICAL EXAMINATION: GENERAL: Sitting up in bed, alert, well appearing, well nourished, no distress, non-toxic EYE EXAM: normal conjunctiva. HEAD: Contusion/with 6cm stellate laceration to posterior occiput. No active bleeding. OROPHARYNX: mucous membranes are moist NECK: supple, no nuchal rigidity, no adenopathy, non-tender LUNGS: Clear to auscultation. Normal chest wall mechanics HEART: no murmurs, S1 normal and S2 normal CHEST: Stable to compression anteriorly and posteriorly. pacer/ICD left upper chest wall ABDOMEN: abdomen soft, non-tender, normo-active bowel sounds, no masses, no rebound or guarding. BACK: Back is symmetrical on inspection and there is no deformity, no midline tenderness, no CVA tenderness. PELVIS: Stable compression anteriorly and posteriorly SKIN: Abrasion to the left forearm and right forearm UPPER EXTREMITIES: upper extremities are grossly normal. LOWER EXTREMITIES: No pitting edema. NEURO EXAM: Normal sensorium, cranial nerves II-XII grossly intact, normal speech, no gross weakness of arms, no gross weakness of legs. MEDICAL DECISION MAKING: Patient is an 83-year-old male who presents the ER following a fall where he hit his head. There was reported loss of consciousness. IV was established blood work was obtained. Labs showed no significant leukocytosis. Mild anemia at 9.8. Thrombocytopenia at 115. INR unremarkable. BMP with creatinine 3.2 up from baseline of what appears to be 2.5-2.8. LFTs was unremarkable. Troponin elevated at 115 which I favor secondary to CKD. Lipase was normal. CT of the head and cervical spine was unremarkable. Chest x-ray was unremarkable. Pacemaker/ICD was interrogated and I spoke with Junaid from [employer] She notes that the lead is not functioning to capacity and there is concern that this could dislodge was partially dislodged. She notes she will have to come in to evaluated. I did discuss this with Dr. Cat who notes he will evaluate the patient. This has been present since January and does not appear to be acute per [employer]. I discussed the case with the hospitalist for further observation and monitoring overnight. Patient is currently only paced at a rate of about 80%. Laceration was repaired by myself at bedside. Consults/Care Managements Discussions: Per [facility] Triage Nursing notes reviewed. Limited review of prior medical records performed Vital Signs: reviewed and remarkable for no significant abnormalities Differential diagnosis: Differential diagnoses include major intracranial, cervical, spinal, thoracic, abdominal, pelvic and neurologic injury. Fracture, contusion, sprain, strain, laceration, abrasions included as well. ER treatment provided: See below Diagnostics interpreted by me include EKG and cardiac monitoring as listed below: -Cardiac Monitoring: An order was placed for continuous cardiac monitoring. The monitor shows a rate of 90 with sinus rhythm. -ECG: Paced rhythm rate 87 with bigeminy Right axis Right bundle branch block QTc 587 -Laboratory studies:Interpreted by me as stated above in [facility] and shown below. Imaging studies: Xrays: As interpreted by me: Portable AP upright 1 view chest shows right pleural effusion CTs show: CT of the head and cervical spine per radiology shows no acute pathology Procedures:Laceration repair of scalp: Wound measured 6 cm. Let gel was used as anesthesia. The wound was inspected for foreign bodies, tendon, artery and bone or joint involvement and none was found. The wound was irrigated with saline and closed with 6 dieter. The patient tolerated the procedure well. Critical Care: None Past Med/Surg History Problem List (Updated 05/18/24 @ 14:05 by Garrick Rosario DO) Laceration of scalp (Acute) JOHN (acute kidney injury) (Acute) Fall (Acute) Elevated troponin (Acute) Hematoma URI (upper respiratory infection) Depression History of DVT (deep vein thrombosis) Abnormal CXR Swelling (Acute) Falls (Acute) Weakness (Acute) Chronic heart failure with preserved ejection fraction Elevated troponin (Acute) Stroke Chronic anemia DVT (deep venous thrombosis) History of ischemic cardiomyopathy Dementia Metabolic encephalopathy Delirium Hypotension Light chain disease, 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 Renal failure (ARF), acute on chronic AMS (altered mental status) (Acute) Elevated troponin (Acute) CKD (chronic kidney disease) (Acute) Bilateral edema of lower extremity (Acute) Abnormal urine findings Vascular dementia [facility] neurology CKD (chronic kidney disease) stage 3, GFR 30-59 ml/min CAD (coronary artery disease) Right heart 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 heart failure with preserved ejection fraction (HFpEF) (Acute) 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 Permanent atrial fibrillation HLD (hyperlipidemia) HTN (hypertension) Medical History (Updated 05/18/24 @ 14:05 by Garrick Rosario DO) Nocturnal hypoxemia Hematuria Generalized weakness COVID-19 Surgical History AICD (automatic cardioverter/defibrillator) present Status post biventricular pacemaker and defib Family History Other Family history non-contributory Social History Smoking Status: Never smoker Second Hand Exposure: No; Do You Dip or Chew Tobacco: No; Hx Alcohol Use: No Hx Substance Use: No Preferred Language: Jordanian Communication Ability: Impaired Home Care Specialist Required: No Beliefs That Will Affect Care: Congregational Congregational Beliefs: Worship Current Living Situation: Personal Care Facility Current Living Situation Comment: [facility] care Feels Safe at Home: Yes Assistive Devices: Walker Allergies Allergies Allergy/AdvReac Type Severity Reaction Status Date / Time No Known Allergies Allergy Unverified 10/06/23 15:42 Home Meds Home Medications Medication Instructions Recorded Confirmed cholecalciferol (vitamin D3) 50 4,000 unit PO DAILY 08/09/22 03/12/24 mcg (2,000 unit) tablet (Vitamin D3) clopidogrel 75 mg tablet 75 mg PO DAILY 08/09/22 03/12/24 fluoxetine 10 mg capsule 10 mg PO DAILY 08/09/22 03/12/24 fluticasone propionate 50 1 spray intranasal BID 08/09/22 03/12/24 mcg/actuation nasal spray,suspension ketoconazole 2 % topical cream 1 applic topical BID PRN flares 08/09/22 03/12/24 nitroglycerin 0.4 mg sublingual 0.4 mg sublingual UD PRN Chest Pain 08/09/22 03/12/24 tablet rosuvastatin 10 mg tablet 10 mg PO HS 08/09/22 03/12/24 acetaminophen 500 mg tablet 1,000 mg PO BID 09/23/23 03/12/24 (Tylenol Extra Strength) docusate sodium 100 mg capsule 100 mg PO DAILY 09/23/23 03/12/24 (Colace) loratadine 10 mg tablet 10 mg PO DAILY 09/23/23 03/12/24 acetaminophen 325 mg tablet 650 mg PO Q4 PRN Fever Or Pain 10/06/23 03/12/24 guaifenesin 400 mg tablet 400 mg PO Q6 PRN congestion/cough 10/06/23 03/12/24 ketoconazole 2 % shampoo 1 ea topical 3XWK 10/06/23 03/12/24 melatonin 3 mg tablet 3 mg PO HS PRN Insomnia 10/06/23 03/12/24 sulfamethoxazole 800 1 tab PO MOWEFR 10/06/23 03/12/24 mg-trimethoprim 160 mg tablet potassium chloride 20 mEq 20 meq PO TID 03/12/24 03/12/24 tablet,extended release(part/cryst) tacrolimus 1 mg capsule, 2 mg PO BID 03/12/24 03/12/24 immediate-release torsemide 20 mg tablet 40 mg PO DAILY PRN weight gain 03/12/24 03/12/24 >3lbs torsemide 20 mg tablet 60 mg PO BID 03/12/24 03/12/24 Previous Rx's Medication Instructions Recorded doxycycline hyclate 100 mg capsule 100 mg PO BID #12 caps 03/15/24 metoprolol succinate 25 mg 25 mg PO HS #30 tabs 03/15/24 tablet,extended release 24 hr Results & Data (ED) Vital Signs Vital Signs - 24 hr 05/18/24 10:13 05/18/24 10:23 05/18/24 10:30 Temperature 36.6 C Temperature Source Oral Pulse Rate 75 83 Pulse Rate [Apical] 78 Respiratory Rate 15 18 Respiratory Depth Normal Blood Pressure 123/96 Blood Pressure Mean 105 Pulse Oximetry 90 93 Oxygen Delivery Method Room Air Sepsis Recent Fever Within 48 Hours No Sepsis New/Unexplained Change in Mental Status No Sepsis Action Taken by Nursing No Action Required Laboratory Data 05/18/24 10:18 05/18/24 10:18 Lab Results 05/18/24 05/18/24 Range/Units 10:18 12:16 WBC 4.97 (4.8-10.8) K/ul RBC 2.77 L (4.70-6.10) M/uL Hgb 9.8 L (14.0-18.0) g/dl Hct 29.2 L (42.0-52.0) % MCV 105.4 H (80.0-100.0) fL MCH 35.4 H (25.0-34.0) pg MCHC 33.6 (32.0-36.0) g/dL RDW Std Deviation 52.6 H (36.4-46.3) fL RDW Coeff of Tucker 13.6 (11.5-14.5) % Plt Count 115 L (130-400) K/uL MPV 10.9 (9.4-12.4) fL Immature Gran % (Auto) 1.2 % Neut % (Auto) 68.6 % Lymph % (Auto) 12.7 % [place] % (Auto) 13.7 % Eos % (Auto) 3.0 % Baso % (Auto) 0.8 % Neut # (Auto) 3.41 (1.40-6.50) K/uL Lymph # (Auto) 0.63 L (1.20-3.40) K/uL [place] # (Auto) 0.68 H (0.11-0.59) K/uL Eos # (Auto) 0.15 (0.00-0.50) K/uL Baso # (Auto) 0.04 (0.00-0.20) K/uL Immature Gran # (Auto) 0.06 (0.01-0.20) K/uL PT 12.3 H (9.0-12.0) Seconds INR 1.1 (0.9-1.1) Sodium 139 (136-145) mmol/L Potassium 4.2 (3.5-5.1) mmol/L Chloride 109 H (98-107) mmol/L Carbon Dioxide 22 (21-32) mmol/L Anion Gap 8 (3-11) BUN 54 H (6-23) mg/dl Creatinine 3.20 H (0.6-1.4) mg/dl Est Cr Clr Drug Dosing 21.1 ml/min Est GFR ( Amer) 19.5 ml/min Est GFR (Non-Af Amer) 16.9 ml/min BUN/Creatinine Ratio 16.9 (10-20) Glucose 92 (70-99(Fasting)) mg/dl Calcium 9.7 (8.6-10.3) mg/dl Total Bilirubin 0.9 (0.2-1.0) mg/dl AST 33 (13-39) U/L ALT 14 (7-52) U/L Alkaline Phosphatase 81 (34-104) U/L Troponin I High Sens 126.0 H* 115.4 H* (0-20) pg/ml Total Protein 5.9 L (6.0-8.3) gm/dl Albumin 3.3 L (3.4-5.0) gm/dl Globulin 2.6 (2.5-4.0) gm/dl Albumin/Globulin Ratio 1.3 (0.9-2) Lipase 11 (11-82) U/L Administered Medications Discontinued Medications Furosemide (Furosemide 40 Mg/4 Ml Vial) 60 mg IV NOW STA Stop: 05/18/24 11:06 Last Admin: 05/18/24 11:41 Dose: 60 mg Documented By: [facility] Lidocaine (Lidocaine/Epineph/Tetracaine 1 Ea Syr) 1 each EXT NOW STA Stop: 05/18/24 10:15 Last Admin: 05/18/24 10:41 Dose: 1 each Documented By: [facility] Data Radiologist's Impression: Cervical Spine CT 05/18/24 10:14 CT SCAN OF THE CERVICAL SPINE CLINICAL HISTORY: Fall. COMPARISON STUDY: Cervical spine CT dated 03/12/2024. TECHNIQUE: CT scan of the cervical spine is performed from the skull base to the upper thoracic spine. Images are reviewed in the axial, sagittal, and coronal planes. IV contrast was not administered for this examination. A dose lowering technique was utilized adhering to the principles of ALARA. CT DOSE: 1324.25 mGy.cm FINDINGS: Skeletal structures: The skeletal structures are well mineralized. There is no evidence of fracture or subluxation involving the cervical spine. Vertebral body height and alignment are maintained. Anterior osteophytes are seen throughout. Partial fusion is seen at C5-C6. The odontoid process and lateral masses are intact. The atlantoaxial articulation is preserved noting productive degenerative change. The spinous processes appear intact. There is [id number] multilevel cervical spondylosis. Uncovertebral and facet arthropathy contribute to neural foraminal narrowing at several levels. Intervertebral discs: There is moderate to severe disc space narrowing at all cervical levels between C3-C4 and C6-C7. Central canal: Posterior disc osteophyte complexes are seen at all cervical levels between C3-C4 and C6-C7. This likely contributes to multilevel acquired compromise of the central canal. Soft tissues: The prevertebral and paraspinous soft tissues are within normal limits. Pacemaker leads are noted at the left thoracic inlet. Atherosclerotic calcification is noted in the carotid bulbs. A 5 cm right lobe thyroid lesion is again noted. Calvarium: The visualized calvarium at the skull base appears intact. Brain parenchyma: Partially visualized brain parenchyma at the skull base is within normal limits. Sinuses and mastoids: The visualized paranasal sinuses are clear. The mastoid air cells are well pneumatized. Lung apices: A right pleural effusion is partially visualized. IMPRESSION: 1. There is no evidence of cervical spine fracture or subluxation. 2. Osteopenia and spondylotic change as above. 3. A right pleural effusion is partially visualized. 4. A right lobe thyroid lesion is again noted and similar to prior studies. If not coronary performed, ultrasound is recommended in follow-up. ACT 112: Negative or not required by law. Electronically signed by: Rigo Crawford M.D. 05/18/2024 11:01 AM Chest X-Ray 05/18/24 10:14 XR chest 1V portable HISTORY: 83 years-old Male Chest pain, nonspecific COMPARISON: Chest CT 03/12/2024 TECHNIQUE: AP view of the chest FINDINGS: Cardiac silhouette is enlarged. Dual-lead left subclavian pacer. There is no pneumothorax. Pulmonary vascular congestion. Layering right pleural effusion with right greater than left bibasilar opacities. Degenerative changes of the shoulders and spine. IMPRESSION: 1. Cardiomegaly with pulmonary vascular congestion. 2. Small right pleural effusion with right greater than left bibasilar opacities favoring atelectasis. Findings are similar to the prior chest CT. ACT 112: Negative or not required by law. The above report was generated using voice recognition software. It may contain grammatical, syntax or spelling errors. Electronically signed by: Tin Smith M.D. 05/18/2024 10:[address] 05/18/24 10:14 CT SCAN OF THE BRAIN WITHOUT IV CONTRAST CLINICAL HISTORY: Fall. COMPARISON STUDY: CT of the brain dated 03/12/2024. TECHNIQUE: Unenhanced axial CT scan of the brain is performed from the vertex to the skull base. A dose lowering technique was utilized adhering to the principles of ALARA. FINDINGS: Brain parenchyma: There is age-related involutional change noting moderate subcortical and periventricular microangiopathic disease. There is no hemorrhage, mass effect, or evidence of acute territorial ischemia by CT criteria. Right temporo-occipital encephalomalacia is unchanged and consistent with a remote insult. There are also chronic infarcts in the left basal ganglia and the left cerebellar hemisphere. Call-white matter differentiation is preserved. No extra-axial fluid collection is seen. Ventricles, sulci, cisterns: Prominent secondary to involutional change. Intracranial vasculature: There is atherosclerotic calcification of the cavernous carotid and vertebral artery. Calvarium: Skeletal structures are osteopenic. No depressed calvarial fracture is seen. Soft tissues: There is a high posterior scalp contusion. Sinuses and mastoids: There is a 3.4 cm retention cyst in the right maxillary antrum. The paranasal sinuses are otherwise clear. The mastoid air cells are well pneumatized. Orbits: The bony orbits are grossly intact. There are bilateral ocular lens implants. IMPRESSION: There is no hemorrhage, mass effect, or evidence of acute territorial ischemia by CT criteria. ACT 112: Negative or not required by law. Electronically signed by: Rigo Crawford M.D. 05/18/2024 11:05 AM Discharge Plan Visit Data Chief Complaint: Fall Stated Complaint: fall ED Provider: Garrick Rosario Discharge Problem: Acute on chronic heart failure with preserved ejection fraction (HFpEF), Elevated troponin, Fall, JOHN (acute kidney injury), Laceration of scalp Forms Stand Alone Forms: [facility] Prescriptions Prescriptions: No Action acetaminophen [Tylenol Extra Strength] 500 mg Tablet 1,000 mg PO BID docusate sodium [Colace] 100 mg Capsule 100 mg PO DAILY loratadine 10 mg Tablet 10 mg PO DAILY clopidogrel 75 mg tablet 75 mg PO DAILY fluoxetine 10 mg capsule 10 mg PO DAILY fluticasone propionate 50 mcg/actuation spray,suspension 1 spray INTRANASAL BID nitroglycerin 0.4 mg tablet, sublingual 0.4 mg sublingual UD PRN (Reason: Chest Pain) Rx Instructions: 1 tab under tongue every 5 min for 3 doses as needed for chest pain,if no relief call ketoconazole 2 % cream 1 applic TOPICAL BID PRN (Reason: flares) Rx Instructions: apply to behind ears as needed for seborrheic dernatitis flares rosuvastatin 10 mg tablet 10 mg PO HS cholecalciferol (vitamin D3) [Vitamin D3] 50 mcg (2,000 unit) Tablet 4,000 unit PO DAILY acetaminophen 325 mg Tablet 650 mg PO Q4 MDD 3g PRN (Reason: Fever Or Pain) melatonin 3 mg Tablet 3 mg PO HS PRN (Reason: Insomnia) guaifenesin 400 mg Tablet 400 mg PO Q6 PRN (Reason: congestion/cough) ketoconazole 2 % Shampoo 1 ea TOPICAL 3XWK Rx Instructions: apply topically to scalp and behind ears 2-3 times per week. leave on 3-5 minutes before rinsing sulfamethoxazole-trimethoprim 800-160 mg tablet 1 tab PO MOWEFR torsemide 20 mg Tablet 40 mg PO DAILY PRN (Reason: weight gain >3lbs ) tacrolimus 1 mg Capsule 2 mg PO BID torsemide 20 mg tablet 60 mg PO BID potassium chloride 20 mEq tablet,ER particles/crystals 20 meq PO TID doxycycline hyclate 100 mg Capsule 100 mg PO BID Qty: 12 0RF metoprolol succinate 25 mg tablet extended release 24 hr 25 mg PO HS Qty: 30 0RF Referrals Referrals: Payam Claire DO [Primary Care Provider] - Discharge Problem: Fall Qualifiers: Encounter type: initial encounter Qualified Code(s): W19.XXXA - Unspecified fall, initial encounter Laceration of scalp Qualifiers: Encounter type: initial encounter Qualified Code(s): S01.01XA - Laceration without foreign body of scalp, initial encounter
[2024-05-18 10:36] LABS: Basophils # (auto) 0.04 K/uL (0.00-0.20); Basophils % (auto) 0.8 %; Eosinophils # (auto) 0.15 K/uL (0.00-0.50); Hematocrit (blood only) 29.2 % (42.0-52.0); Hemoglobin 9.8 g/dl (14.0-18.0); Immature Granulocytes # (auto) 0.06 K/uL (0.01-0.20); Immature Granulocytes % (auto) 1.2 %; Lymphocytes # (auto) 0.63 K/uL (1.20-3.40); Lymphocytes % (auto) 12.7 %; Mean Corpuscular Hemoglobin 35.4 pg (25.0-34.0); Mean Corpuscular Hgb Conc 33.6 g/dL (32.0-36.0); Mean Corpuscular Volume 105.4 fL (80.0-100.0); Mean Platelet Volume 10.9 fL (9.4-12.4); Monocytes # (auto) 0.68 K/uL (0.11-0.59); Monocytes % (auto) 13.7 %; Neutrophils # (auto) 3.41 K/uL (1.40-6.50); Neutrophils % (auto) 68.6 %; Platelet Count 115 K/uL (130-400); RDW Coefficient of Variation 13.6 % (11.5-14.5); RDW Standard Deviation 52.6 fL (36.4-46.3); Red Blood Count 2.77 M/uL (4.70-6.10); White Blood Count 4.97 K/ul (4.8-10.8)
[2024-05-18] MEDS: LIDOCAINE/EPINEPH/TETRACAINE 1 EA SYR EXT STA (10:41)
[2024-05-18 10:54] LABS: Albumin Globulin Ratio 1.3 (0.9-2); Albumin Level 3.3 gm/dl (3.4-5.0); BUN Creatinine Ratio 16.9 (10-20); Bilirubin,Total 0.9 mg/dl (0.2-1.0); Calcium 9.7 mg/dl (8.6-10.3); Creatinine Clr Calc Pharmacy 21.1 ml/min; Est GFR (African American) 19.5 ml/min; Est GFR (Non-African American) 16.9 ml/min; Globulin 2.6 gm/dl (2.5-4.0); Potassium 4.2 mmol/L (3.5-5.1); Total Protein 5.9 gm/dl (6.0-8.3)
--- NOTE | 2024-05-18 10:58 | XRay Report ---
XR chest 1V portable HISTORY: 83 years-old Male Chest pain, nonspecific COMPARISON: Chest CT 03/12/2024 TECHNIQUE: AP view of the chest FINDINGS: Cardiac silhouette is enlarged. Dual-lead left subclavian pacer. There is no pneumothorax. Pulmonary vascular congestion. Layering right pleural effusion with right greater than left bibasilar opacities . Degenerative changes of the shoulders and spine. IMPRESSION: 1. Cardiomegaly with pulmonary vascular congestion. 2. Small right pleural effusion with right greater than left bibasilar opacities favoring atelectasis . Findings are similar to the prior chest CT. ACT 112: Negative or not required by law. The above report was generated using voice recognition software. It may contain grammatical, syntax o r spelling errors. Electronically signed by: Tin Smith M.D. 05/18/2024 10:56 AM
--- NOTE | 2024-05-18 11:02 | CT Scan Report ---
CT SCAN OF THE CERVICAL SPINE CLINICAL HISTORY: Fall. COMPARISON STUDY: Cervical spine CT dated 03/12/2024. TECHNIQUE: CT scan of the cervical spine is performed from the skull base to the upper thoracic spine . Images are reviewed in the axial, sagittal, and coronal planes. IV contrast was not administered fo r this examination. A dose lowering technique was utilized adhering to the principles of ALARA. CT DOSE: 1324.25 mGy.cm FINDINGS: Skeletal structures: The skeletal structures are well mineralized. There is no evidence of fracture o r subluxation involving the cervical spine. Vertebral body height and alignment are maintained. Anter ior osteophytes are seen throughout. Partial fusion is seen at C5-C6. The odontoid process and latera l masses are intact. The atlantoaxial articulation is preserved noting productive degenerative change . The spinous processes appear intact. There is [id number] multilevel cervical spondylosis. Unc overtebral and facet arthropathy contribute to neural foraminal narrowing at several levels. Intervertebral discs: There is moderate to severe disc space narrowing at all cervical levels between C3-C4 and C6-C7. Central canal: Posterior disc osteophyte complexes are seen at all cervical levels between C3-C4 and C6-C7. This likely contributes to multilevel acquired compromise of the central canal. Soft tissues: The prevertebral and paraspinous soft tissues are within normal limits. Pacemaker leads are noted at the left thoracic inlet. Atherosclerotic calcification is noted in the carotid bulbs. A 5 cm right lobe thyroid lesion is again noted. Calvarium: The visualized calvarium at the skull base appears intact. Brain parenchyma: Partially visualized brain parenchyma at the skull base is within normal limits. Sinuses and mastoids: The visualized paranasal sinuses are clear. The mastoid air cells are well pneu matized. Lung apices: A right pleural effusion is partially visualized. IMPRESSION: 1. There is no evidence of cervical spine fracture or subluxation. 2. Osteopenia and spondylotic change as above. 3. A right pleural effusion is partially visualized. 4. A right lobe thyroid lesion is again noted and similar to prior studies. If not coronary performed , ultrasound is recommended in follow-up. ACT 112: Negative or not required by law. Electronically signed by: Rigo Crawford M.D. 05/18/2024 11:01 AM
[2024-05-18 11:05] LABS: INR 1.1 (0.9-1.1); Prothrombin Time 12.3 Seconds (9.0-12.0)
--- NOTE | 2024-05-18 11:06 | CT Scan Report ---
CT SCAN OF THE BRAIN WITHOUT IV CONTRAST CLINICAL HISTORY: Fall. COMPARISON STUDY: CT of the brain dated 03/12/2024. TECHNIQUE: Unenhanced axial CT scan of the brain is performed from the vertex to the skull base. A do se lowering technique was utilized adhering to the principles of ALARA. FINDINGS: Brain parenchyma: There is age-related involutional change noting moderate subcortical and periventri cular microangiopathic disease. There is no hemorrhage, mass effect, or evidence of acute territorial ischemia by CT criteria. Right temporo-occipital encephalomalacia is unchanged and consistent with a remote insult. There are also chronic infarcts in the left basal ganglia and the left cerebellar hem isphere. Call-white matter differentiation is preserved. No extra-axial fluid collection is seen. Ventricles, sulci, cisterns: Prominent secondary to involutional change. Intracranial vasculature: There is atherosclerotic calcification of the cavernous carotid and vertebr al artery. Calvarium: Skeletal structures are osteopenic. No depressed calvarial fracture is seen. Soft tissues: There is a high posterior scalp contusion. Sinuses and mastoids: There is a 3.4 cm retention cyst in the right maxillary antrum. The paranasal s inuses are otherwise clear. The mastoid air cells are well pneumatized. Orbits: The bony orbits are grossly intact. There are bilateral ocular lens implants. IMPRESSION: There is no hemorrhage, mass effect, or evidence of acute territorial ischemia by CT jenny alexandra. ACT 112: Negative or not required by law. Electronically signed by: Rigo Crawford M.D. 05/18/2024 11:05 AM
[2024-05-18] MEDS: FUROSEMIDE 40 MG/4 ML VIAL IV STA (11:41)
--- NOTE | 2024-05-18 12:11 | History & Physical Report ---
Date of Service May 18, 2024 Assessment & Plan (1) Laceration of scalp: (2) Fall: (3) Acute on chronic heart failure with preserved ejection fraction (HFpEF): (4) Elevated troponin: (5) Depression: (6) History of CVA (cerebrovascular accident): (7) CKD (chronic kidney disease): (8) CAD (coronary artery disease): (9) Permanent atrial fibrillation: (10) correction current use of 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: (11) HTN (hypertension): (12) HLD (hyperlipidemia): Plan: This is an 83yo M with PMH CAD, history of dilated ischemic cardiomyopathy with now improved and preserved EF, AICD implantation, mitral insufficiency, permanent atrial fibrillation anticoagulated on Eliquis, history of CVA, history of recurrent falls and nocturnal hypoxia presented to ED from [facility] after unwitnessed fall. Fall Scalp laceration Unwitnessed fall at [facility], scalp laceration stapled Initial CT head with no hemorrhage, mass effect or evidence of acute territorial ischemia by CT criteria Cervical spine CT with no evidence of fracture or subluxation Repeat CT head in AM, if no change likely can resume home Eliquis, Plavix H/o recurrent falls at personal halfway PT/OT evaluation, fall precautions May need to consider discussion of risk vs benefit continued anticoagulation given issues with recurrent falls Permanent atrial fibrillation on anticoagulation H/o AICD, ? abnormal pacer interrogation Pacer reviewed per cards - increased PVC, couplets, triplets and bigeminy which would explain the inability for the patients device to appropriately capture Per cards- Toprol increased to 25mg daily, monitor on telemetry. Will reassess response to increased beta easton overnight and will have device rep check on device tomorrow Acute on chronic HFpEF Elevated troponin Appears volume overloaded on exam EKG with ventricular paced rhythm Given 60mg IV lasix in ED CXR with cardiomegaly with pulmonary vascular congestion. Small right pleural effusion favoring atelectasis. Findings similar to prior chest CT Current diuretic regimen per Nephrology -Torsemide 80mg M// and Friday, and 60mg / and Friday Cards recommending reassessing renal function in AM, nephro consulted for recs for further diuresis Daily weights, I&Os, repeat 2D echo, low sodium diet Replete electrolytes, keep K > 4.0 and Mag> 2.0. 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: History kidney biopsy consistent with membranous glomerulopathy Cr: 3.2 (recent baseline high 2s- low 3s lately) Currently on Bactrim MWF as prophylaxis Continue tacrolimus Nephrology consulted Permanent atrial fibrillation Chronically anticoagulated on Eliquis for A fib, h/o DVT in 2022- hold for now given extensive bruising, fall and resume in AM if repeat head CT ok Continue increased dose of Toprol as above HTN (hypertension) Continue Toprol Chronic anemia Chronic thrombocytopenia H&H, platelets about baseline Monitor with daily CBC Noctural hypoxia Oxygen HS Right thyroid lesion on C-spine CT USG thyroid as an outpatient DVT Prophylaxis: holding Eliquis for now Code status: DNR/DNI per patient PCP: Nicolle Claire Dispo: admitted to PCU Patient seen in collaboration with Dr. Pineda. Please see addendum. I spent a total of 75 minutes coordinating, documenting, and providing care for this patient excluding time spent in the performance of separately billed services. History of Present Illness Chief Complaint: fall Primary Care Provider: Payam Claire, This is an 83yo M with PMH CAD, history of dilated ischemic cardiomyopathy with now improved and preserved EF, AICD implantation, mitral insufficiency, permanent atrial fibrillation anticoagulated on Eliquis, history of CVA, history of recurrent falls and nocturnal hypoxia presented to ED from [facility] after unwitnessed fall. Patient was reportedly getting out of shower and slipped on the ground, striking his head on what he thinks was the shower/side of tub. Denies any loss of consciousness. Staff came in and helped him up, came into ED for further evaluation. Denies any preceding chest pain, palpitations or lightheadedness. Denies any pain right now. Taking all medications as prescribed, administered at facility. Is on anticoagulation for history of atrial fibrillation. Denies any fever, chills, lightheadedness, nausea, vomiting, abdominal pain, dysuria, diarrhea or constipation. Allergies Allergy/AdvReac Type Severity Reaction Status Date / Time No Known Allergies Allergy Unverified 10/06/23 15:42 Home Medications Medication Instructions Recorded Confirmed Type cholecalciferol (vitamin D3) 50 4,000 unit PO DAILY 08/09/22 05/18/24 History mcg (2,000 unit) tablet (Vitamin D3) clopidogrel 75 mg tablet 75 mg PO DAILY 08/09/22 05/18/24 History fluoxetine 10 mg capsule 10 mg PO DAILY 08/09/22 05/18/24 History fluticasone propionate 50 1 spray intranasal BID 08/09/22 05/18/24 History mcg/actuation nasal spray,suspension ketoconazole 2 % topical cream 1 applic topical BID PRN flares 08/09/22 05/18/24 History nitroglycerin 0.4 mg sublingual 0.4 mg sublingual UD PRN Chest Pain 08/09/22 05/18/24 History tablet rosuvastatin 10 mg tablet 10 mg PO HS 08/09/22 05/18/24 History acetaminophen 500 mg tablet 1,000 mg PO BID 09/23/23 05/18/24 History (Tylenol Extra Strength) docusate sodium 100 mg capsule 100 mg PO DAILY 09/23/23 05/18/24 History (Colace) loratadine 10 mg tablet 10 mg PO DAILY 09/23/23 05/18/24 History acetaminophen 325 mg tablet 650 mg PO Q4H PRN Fever Or Pain 10/06/23 05/18/24 History guaifenesin 400 mg tablet 400 mg PO Q6H PRN congestion/cough 10/06/23 05/18/24 History ketoconazole 2 % shampoo 1 ea topical 3XWK 10/06/23 05/18/24 History melatonin 3 mg tablet 3 mg PO HS PRN Insomnia 10/06/23 05/18/24 History sulfamethoxazole 800 1 tab PO MOWEFR 10/06/23 05/18/24 History mg-trimethoprim 160 mg tablet potassium chloride 20 mEq 20 meq PO TID 03/12/24 05/18/24 History tablet,extended release(part/cryst) tacrolimus 1 mg capsule, 2 mg PO BID 03/12/24 05/18/24 History immediate-release torsemide 20 mg tablet 40 mg PO DAILY PRN weight gain 03/12/24 05/18/24 History >3lbs torsemide 20 mg tablet See Rx Instructions .Route .COMPLEX 03/12/24 05/18/24 History apixaban 5 mg tablet (Eliquis) 5 mg PO BID 05/18/24 05/18/24 History metoprolol succinate 25 mg 12.5 mg PO HS 05/18/24 05/18/24 History tablet,extended release 24 hr Past Med/Surg History Problem List Ventricular bigeminy History of CVA (cerebrovascular accident) Laceration of scalp (Acute) JOHN (acute kidney injury) (Acute) Fall (Acute) Elevated troponin (Acute) Hematoma URI (upper respiratory infection) Depression History of DVT (deep vein thrombosis) Abnormal CXR Swelling (Acute) Falls (Acute) Weakness (Acute) Chronic heart failure with preserved ejection fraction Elevated troponin (Acute) Stroke Chronic anemia DVT (deep venous thrombosis) History of ischemic cardiomyopathy Dementia Metabolic encephalopathy Delirium Hypotension Light chain disease, 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 Renal failure (ARF), acute on chronic AMS (altered mental status) (Acute) Elevated troponin (Acute) CKD (chronic kidney disease) (Acute) Bilateral edema of lower extremity (Acute) Abnormal urine findings Vascular dementia [facility] neurology CKD (chronic kidney disease) stage 3, GFR 30-59 ml/min CAD (coronary artery disease) Right heart 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 heart failure with preserved ejection fraction (HFpEF) (Acute) 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 Permanent atrial fibrillation HLD (hyperlipidemia) HTN (hypertension) Medical History Nocturnal hypoxemia Hematuria Generalized weakness COVID-19 Surgical History AICD (automatic cardioverter/defibrillator) present Status post biventricular pacemaker and defib Family History Other Family history non-contributory Social History Smoking Status: Never smoker Second Hand Exposure: No; Do You Dip or Chew Tobacco: No; Hx Alcohol Use: No Hx Substance Use: No Preferred Language: Nicaraguan Communication Ability: 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 Physical Exam Physical Exam: General Appearance: WD/WN, vitals as above, NAD, sitting up in bed, pleasant, elderly male, ecchymosis noted on BUE and face Head: normocephalic, + stapled laceration on posterior aspect of scalp Eyes: normal inspection, PERRL, conjunctivae normal, anicteric sclerae ENT: external ear and nose normal, oropharynx normal Neck: normal visual inspection, trachea midline, no thyromegaly Respiratory: normal respiratory effort, coarse breath sounds bilaterally, no wheeze, rales, rhonchi. No accessory muscle use Cardiovascular: regular rate, rhythm, normal peripheral pulses, 2+ BLE edema, pacemaker L chest wall Chest: normal inspection of chest Abdomen/GI: normal bowel sounds, soft, nontender, no hepatosplenomegaly Extremities/Musculoskeletal: no cyanosis or clubbing, extremities motor strength 5/5 Neurologic: PERRL, EOMI, accommodation nl, no face palsy, no dysarthria, CN's II-XI intact bilaterally and moves all extremities Psychiatric: A+Ox3, euthymic affect Skin: no rashes, normal color, warm/dry Results & Data Results & Data Vital Signs (Past 12 Hours) Vital Signs Temp Pulse Pulse Resp BP Pulse Ox O2 Del Method 05/18/24 10:30 83 05/18/24 10:23 78 18 93 05/18/24 10:13 36.6 C 75 15 123/96 90 Room Air Laboratory Results Short CBC 05/18/24 Range/Units 10:18 WBC 4.97 (4.8-10.8) K/ul Hgb 9.8 L (14.0-18.0) g/dl Hct 29.2 L (42.0-52.0) % Plt Count 115 L (130-400) K/uL BMP 05/18/24 10:18 Sodium 139 Potassium 4.2 Chloride 109 H Carbon Dioxide 22 BUN 54 H Creatinine 3.20 H Glucose 92 Calcium 9.7 Liver Function 05/18/24 Range/Units 10:18 Total Bilirubin 0.9 (0.2-1.0) mg/dl AST 33 (13-39) U/L ALT 14 (7-52) U/L Alkaline Phosphatase 81 (34-104) U/L Albumin 3.3 L (3.4-5.0) gm/dl Diagnostic Findings Cervical Spine CT 05/18/24 10:14 CT SCAN OF THE CERVICAL SPINE CLINICAL HISTORY: Fall. COMPARISON STUDY: Cervical spine CT dated 03/12/2024. TECHNIQUE: CT scan of the cervical spine is performed from the skull base to the upper thoracic spine. Images are reviewed in the axial, sagittal, and coronal planes. IV contrast was not administered for this examination. A dose lowering technique was utilized adhering to the principles of ALARA. CT DOSE: 1324.25 mGy.cm FINDINGS: Skeletal structures: The skeletal structures are well mineralized. There is no evidence of fracture or subluxation involving the cervical spine. Vertebral body height and alignment are maintained. Anterior osteophytes are seen throughout. Partial fusion is seen at C5-C6. The odontoid process and lateral masses are intact. The atlantoaxial articulation is preserved noting productive degenerative change. The spinous processes appear intact. There is [id number] multilevel cervical spondylosis. Uncovertebral and facet arthropathy contribute to neural foraminal narrowing at several levels. Intervertebral discs: There is moderate to severe disc space narrowing at all cervical levels between C3-C4 and C6-C7. Central canal: Posterior disc osteophyte complexes are seen at all cervical levels between C3-C4 and C6-C7. This likely contributes to multilevel acquired compromise of the central canal. Soft tissues: The prevertebral and paraspinous soft tissues are within normal limits. Pacemaker leads are noted at the left thoracic inlet. Atherosclerotic calcification is noted in the carotid bulbs. A 5 cm right lobe thyroid lesion is again noted. Calvarium: The visualized calvarium at the skull base appears intact. Brain parenchyma: Partially visualized brain parenchyma at the skull base is within normal limits. Sinuses and mastoids: The visualized paranasal sinuses are clear. The mastoid air cells are well pneumatized. Lung apices: A right pleural effusion is partially visualized. IMPRESSION: 1. There is no evidence of cervical spine fracture or subluxation. 2. Osteopenia and spondylotic change as above. 3. A right pleural effusion is partially visualized. 4. A right lobe thyroid lesion is again noted and similar to prior studies. If not coronary performed, ultrasound is recommended in follow-up. ACT 112: Negative or not required by law. Electronically signed by: Rigo Crawford M.D. 05/18/2024 11:01 AM Chest X-Ray 05/18/24 10:14 XR chest 1V portable HISTORY: 83 years-old Male Chest pain, nonspecific COMPARISON: Chest CT 03/12/2024 TECHNIQUE: AP view of the chest FINDINGS: Cardiac silhouette is enlarged. Dual-lead left subclavian pacer. There is no pneumothorax. Pulmonary vascular congestion. Layering right pleural effusion with right greater than left bibasilar opacities. Degenerative changes of the shoulders and spine. IMPRESSION: 1. Cardiomegaly with pulmonary vascular congestion. 2. Small right pleural effusion with right greater than left bibasilar opacities favoring atelectasis. Findings are similar to the prior chest CT. ACT 112: Negative or not required by law. The above report was generated using voice recognition software. It may contain grammatical, syntax or spelling errors. Electronically signed by: Tin Smith M.D. 05/18/2024 10:[address] 05/18/24 10:14 CT SCAN OF THE BRAIN WITHOUT IV CONTRAST CLINICAL HISTORY: Fall. COMPARISON STUDY: CT of the brain dated 03/12/2024. TECHNIQUE: Unenhanced axial CT scan of the brain is performed from the vertex to the skull base. A dose lowering technique was utilized adhering to the principles of ALARA. FINDINGS: Brain parenchyma: There is age-related involutional change noting moderate subcortical and periventricular microangiopathic disease. There is no hemorrhag e, mass effect, or evidence of acute territorial ischemia by CT criteria. Right temporo-occipital encephalomalacia is unchanged and consistent with a remote insult. There are also chronic infarcts in the left basal ganglia and the left cerebellar hemisphere. Call-white matter differentiation is preserved. No extra- axial fluid collection is seen. Ventricles, sulci, cisterns: Prominent secondary to involutional change. Intracranial vasculature: There is atherosclerotic calcification of the cavernous carotid and vertebral artery. Calvarium: Skeletal structures are osteopenic. No depressed calvarial fracture is seen. Soft tissues: There is a high posterior scalp contusion. Sinuses and mastoids: There is a 3.4 cm retention cyst in the right maxillary antrum. The paranasal sinuses are otherwise clear. The mastoid air cells are well pneumatized. Orbits: The bony orbits are grossly intact. There are bilateral ocular lens implants. IMPRESSION: There is no hemorrhage, mass effect, or evidence of acute territorial ischemia by CT criteria. ACT 112: Negative or not required by law. Electronically signed by: Rigo Crawford M.D. 05/18/2024 11:05 AM Supervising Physician Co-Signing Physician Notes 83-year-old male with PMH of CAD, dilated ischemic CM now improved and preserved EF, biventricular pacemaker/defibrillator implantation, mitral insufficiency, permanent A-fib on Eliquis, CVA, nocturnal hypoxia [facility]. Patient reports he slipped and hit his head, denies loss of consciousness. Patient reports no fever/chest pain/palpitation/shortness of breath/cough. Patient reports eating okay, no acute changes in his bowel or bladder habit. Labs fairly WNL, creatinine mildly elevated/closer to his baseline. Noted advanced kidney disease. Troponin seems chronically elevated. EKG with ventricular paced rhythm. CT head with no acute finding/no hge. Pulmonary scan with pulmonary vascular congestion. C-spine CT with no fracture, noted was right thyroid lobe lesion, ultrasound is recommended. Active problems: Likely exacerbation of CHF with preserved ejection fraction-BLE 2+ pitting edema, CXR with pulmonary vascular congestion. 60 mg IV Lasix given in ED, fluid restriction of 1800 mL a day, heart healthy diet, low-sodium diet, I's and O's, Soriano catheter for I's and O's monitoring. Monitor replete electrolytes. Telemetry monitoring. Echo. Cardiology consult. Resume other home cardiac medications. Cards recommending hold diuresis until clinical assessment chris and recommending nephro consult. Mechanical fall, scalp laceration: Scalp laceration noted, sutured in the ED, follow-up after discharge for suture removal. Patient denies pain. Given fall and Eliquis use, will hold Eliquis and repeat CT scan of the head tomorrow morning. likely resume Eliquis once repeat CT scan is negative. Right thyroid lesion on C-spine CT: USG thyroid as an outpatient. On examination: GENERAL: Alert and oriented x3. NAD, on RA. Appears elderly, weak/frail. HEENT: No pallor, no icterus. Pupils equal, round and reactive to light. Oral mucosa moist. NECK: No JVD, no neck masses. HEART: S1 and S2 heard. Regular rate and rhythm. No murmur, no gallop. RESPIRATORY SYSTEM: Normal AP diameter. No accessory muscle use. No wheezing, bb crackles. ABDOMEN: Soft, bowel sounds present, nontender, no distention. CENTRAL NERVOUS SYSTEM: No facial droop. Speech is clear. Obeys simple commands. Moves extremities. EXTREMITIES: 2+ ble edema, no erythema seen. I have seen and examined the patient and have discussed the case with the provider above. I agree with the assessment and plan as stated. (1) Laceration of scalp Encounter type: initial encounter Qualified Code(s): S01.01XA - Laceration without foreign body of scalp, initial encounter (2) Fall Encounter type: initial encounter Qualified Code(s): W19.XXXA - Unspecified fall, initial encounter
--- NOTE | 2024-05-18 12:57 | Electrocardiogram Report ---
Test Reason : Blood Pressure : / mmHG Vent. Rate : 087 BPM Atrial Rate : 087 BPM P-R Int : 000 ms QRS Dur : 176 ms QT Int : 488 ms P-R-T Axes : 000 121 -15 degrees QTc Int : 587 ms Ventricular-paced rhythm in a pattern of bigeminy Abnormal ECG When compared with ECG of 13-MAR-2024 05:21, Vent. rate has increased BY 12 BPM Confirmed by Clinton Jaffe ([id number]) on 05/18/2024 12:57:35 PM Referred By: Confirmed By:Clinton Jaffe
--- NOTE | 2024-05-18 12:58 | Cardiology Consultation ---
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 Worseing renal function and evidence of volume overload with an "abnormal" device interrogation requesting for cardiology to evaluate. Plan: 1. Ventricular bigeminy: 2. Acute on chronic heart failure with preserved EF 3. s/p BiV dual ICD/Pacemaker 4. Elevated troponin 5. Renal failure -Increased PVC, couplets, triplets and bigeminy which would explain the inability for the patients device to appropriately capture. -Electrolytes stable, worsening renal function. -unable to assess patient's diet due to cognitive/memory deficit; however, he resides at [facility]. -Currently on Metoprolol succinate 12.5mg QD, will increase to 25mg QD -Continue to monitor on telemetry. Will reassess response to increased beta easton overnight and will have device rep check on device tomorrow. -Device: Medtronic Viva Quad [id number], biventricular -Patient demonstrates modest volume overload. Received IV Lasix 60mg x1 dose today. -Current home regimen (set fourth by Nephrology) has been Torsemide 80mg // and Friday, and 60mg / and Friday. -Will hold off on starting a maintenance diuretic dose and reassess renal function in the AM given dose already received today and worsening renal function. -Recommend that Nephrology be involved in this patient's care as they have been helping us to manage his fluid status in the setting of worsening renal function. would appreciate their input. -Daily weights, and strict I&O -Close monitoring of renal function as well as electrolytes with goal serum K > 4.0 and serum Mag> 2.0. -Known chronic elevated troponin in the absence of acute EKG changes, and no symptoms. -Trend troponin to peak. -Obtain echocardiogram to assess overall structure and function 6. Permanent A-fib 7. 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 -patient carries a history of A-fib, prior TIA and prior DVT. High risk for thrombo-embolic event; however, need to weigh risk vs benefit of use of anticoagulation. Current home regimen is Eliquis 5mg PO BID. -[id number] score 7. 8. HTN -Well controlled. Continue Metoprolol succinate (increased dose to 25mg QD), diuretics on hold 9. HLD -Continue Crestor 10. Fall 11. Laceration of the scalp -HEAD CT negative -Continued management per primary team. Case has been discussed with Dr. Cat. Further recommendations regarding plan of care as per his assessment. I spent a total of 40 minutes on the date of service in preparation, delivery, documentation of the care provided to the patient excluding any time spent in the performance of separately billed services. EMEKA [facility] Cardiology [facility] Supervising Physician Co-Signing Physician Notes Patient was seen and personally examined. Full assessment and plan as well outlined above. 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 Device interrogation reveals frequent ventricular ectopy with reduced biventricular pacing but n ormally functioning device with mildly elevated lead threshold Exam reflective of moderate volume overload there with worsening renal insufficiency on exam Patient pleasant but disoriented Plan as recommended above History of Present Illness Reason for Consultation: Heart failure [facility] Present Illness HPI: Patient is a 83 year old male that presented to the ED today from [facility] after unwitnessed fall. Patient was reportedly getting out of shower and slipped on the ground, striking his head on what he thinks was the shower/side of tub. Pacemaker interrogation has been obtained. Reduced pacing percentage; however there is increased ectopy. Increased PVCs including couplets, triplets and bigeminy. He has a longstanding cardiac history as follows: 1. Dilated ischemic cardiomyopathy, past history of remote myocardial infarction moderate to severe left ventricular dysfunction 2. Prior multiple coronary interventions 3. Pacer defibrillator implantation , biventricular, Medtronic Viva Quad [id number] 01/27/2017 4. Mitral insufficiency 5. Atrial fibrillation. Long-term persistent 6. Past TIA stroke on chronic anticoagulation 7. Nocturnal hypoxia 8.dementia 9. 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 Cat, last seen in office 08/15/2023. H/H 9.8/29.2, stable for this patient. Electrolytes stable, Renal function declined with Cr. 3.20 (baseline appears to be 2.2-3.0), follows with Dr. Romero in nephrology. On Tacrolimus. Chronic elevated troponin, initial trop today 126.0, subsequent 115.4 EKG V-Paced (bigeminy pattern) Rate 87bpm Head CT-negative for acute process Chest xray: 1 view today IMPRESSION: 1. Cardiomegaly with pulmonary vascular congestion. 2. Small right pleural effusion with right greater than left bibasilar opacities favoring atelectasis. Findings are similar to the prior chest CT. Patient is resting comfortably in bed at time of evaluation. He is aware of location and reason for coming to the hospital (fall), but denies any other complaints. Patient sustained a lac to the scalp which has been sutured, He has a large abrasion to his left posterior forearm and bruising on multiple areas of his body. Currently on oral anticoagulation. Denies chest pain, pressure, palpitations, no change in breathing, currently on room air saturating mid-90's without distress. Denies pre-syncope or syncope. Denies any loss of consciousness. Notable bilateral lower extremity edema. Allergies Allergy/AdvReac Type Severity Reaction Status Date / Time No Known Allergies Allergy Unverified 10/06/23 15:42 Home Medications Medication Instructions Recorded Confirmed Type cholecalciferol (vitamin D3) 50 4,000 unit PO DAILY 08/09/22 05/18/24 History mcg (2,000 unit) tablet (Vitamin D3) clopidogrel 75 mg tablet 75 mg PO DAILY 08/09/22 05/18/24 History fluoxetine 10 mg capsule 10 mg PO DAILY 08/09/22 05/18/24 History fluticasone propionate 50 1 spray intranasal BID 08/09/22 05/18/24 History mcg/actuation nasal spray,suspension ketoconazole 2 % topical cream 1 applic topical BID PRN flares 08/09/22 05/18/24 History nitroglycerin 0.4 mg sublingual 0.4 mg sublingual UD PRN Chest Pain 08/09/22 05/18/24 History tablet rosuvastatin 10 mg tablet 10 mg PO HS 08/09/22 05/18/24 History acetaminophen 500 mg tablet 1,000 mg PO BID 09/23/23 05/18/24 History (Tylenol Extra Strength) docusate sodium 100 mg capsule 100 mg PO DAILY 09/23/23 05/18/24 History (Colace) loratadine 10 mg tablet 10 mg PO DAILY 09/23/23 05/18/24 History acetaminophen 325 mg tablet 650 mg PO Q4H PRN Fever Or Pain 10/06/23 05/18/24 History guaifenesin 400 mg tablet 400 mg PO Q6H PRN congestion/cough 10/06/23 05/18/24 History ketoconazole 2 % shampoo 1 ea topical 3XWK 10/06/23 05/18/24 History melatonin 3 mg tablet 3 mg PO HS PRN Insomnia 10/06/23 05/18/24 History sulfamethoxazole 800 1 tab PO MOWEFR 10/06/23 05/18/24 History mg-trimethoprim 160 mg tablet potassium chloride 20 mEq 20 meq PO TID 03/12/24 05/18/24 History tablet,extended release(part/cryst) tacrolimus 1 mg capsule, 2 mg PO BID 03/12/24 05/18/24 History immediate-release torsemide 20 mg tablet 40 mg PO DAILY PRN weight gain 03/12/24 05/18/24 History >3lbs torsemide 20 mg tablet See Rx Instructions .Route .COMPLEX 03/12/24 05/18/24 History apixaban 5 mg tablet (Eliquis) 5 mg PO BID 05/18/24 05/18/24 History metoprolol succinate 25 mg 12.5 mg PO HS 05/18/24 05/18/24 History tablet,extended release 24 hr Patient History Medical History Nocturnal hypoxemia Hematuria Generalized weakness COVID-19 Surgical History AICD (automatic cardioverter/defibrillator) present Status post biventricular pacemaker and defib Family History Other Family history non-contributory Social History Smoking Status: Never smoker Second Hand Exposure: No; Do You Dip or Chew Tobacco: No; Hx Alcohol Use: No Hx Substance Use: No Preferred Language: Tajik Communication Ability: Effective Campaign Fundraiser Required: No Beliefs That Will Affect Care: None Current Living Situation: Alone Current Living Situation Comment: [facility] Feels Safe at Home: Yes Safety Concerns: Feels Safe At This Time Assistive Devices: Walker Review of Systems Review of Systems: All systems reviewed & are unremarkable except as noted in HPI & below Physical Exam Constitutional: well developed, well nourished and + edematous (+2 borderline +3 BLE edema ); no acute distress and not ill appearing Neck: normal visual inspection and trachea midline Respiratory: normal respiratory effort; no respiratory distress, no labored breathing, no retractions and no cough Auscultation: lungs clear to auscultation bilaterally; no crackles, no rales, no rhonchi and no wheezes Cardiovascular: Rate/Rhythm: regular rate and regular rhythm (frequent PVC, couplets, triplets and bigeminy,) Heart Sounds: normal S1, normal S2 and + murmur (+II/ systolic ) Vessels: dorsalis pedis pulses present; no JVD Extremities: + edema (+2, borderline +3 BLE) Skin: + ecchymosis (multiple areas of ecchymos is arms, shoulder, right lower leg) and + erythema (left lower extremity) Trauma: + abrasion (right posterior forearm) and + laceration (scalp, sutured in the ED) Psychiatric: Orientation: alert, oriented to person, oriented to place (oriented to place, person and somewhat to event) and cooperative; + not oriented to time Results & Data Vital Signs (Past 12 Hours) Vital Signs Temp Pulse Pulse Resp BP Pulse Ox O2 Del Method 05/18/24 10:30 83 05/18/24 10:23 78 18 93 05/18/24 10:13 36.6 C 75 15 123/96 90 Room Air Laboratory Results Cardiac Enzymes 05/18/24 05/18/24 Range/Units 10:18 12:16 AST 33 (13-39) U/L Troponin I High Sens 126.0 H* 115.4 H* (0-20) pg/ml Coagulation 05/18/24 Range/Units 10:18 PT 12.3 H (9.0-12.0) Seconds CBC 05/18/24 Range/Units 10:18 WBC 4.97 (4.8-10.8) K/ul RBC 2.77 L (4.70-6.10) M/uL Hgb 9.8 L (14.0-18.0) g/dl Hct 29.2 L (42.0-52.0) % Plt Count 115 L (130-400) K/uL Neut # (Auto) 3.41 (1.40-6.50) K/uL Lymph # (Auto) 0.63 L (1.20-3.40) K/uL Maries # (Auto) 0.68 H (0.11-0.59) K/uL Eos # (Auto) 0.15 (0.00-0.50) K/uL Baso # (Auto) 0.04 (0.00-0.20) K/uL Comprehensive Metabolic Panel 05/18/24 Range/Units 10:18 Sodium 139 (136-145) mmol/L Potassium 4.2 (3.5-5.1) mmol/L Chloride 109 H (98-107) mmol/L Carbon Dioxide 22 (21-32) mmol/L BUN 54 H (6-23) mg/dl Creatinine 3.20 H (0.6-1.4) mg/dl Glucose 92 (70-99(Fasting)) mg/dl Calcium 9.7 (8.6-10.3) mg/dl AST 33 (13-39) U/L ALT 14 (7-52) U/L Alkaline Phosphatase 81 (34-104) U/L Total Protein 5.9 L (6.0-8.3) gm/dl Albumin 3.3 L (3.4-5.0) gm/dl Intake and Output 05/17/24 05/18/24 05/18/24 22:59 06:59 14:59 Other: Weight 103.4 kg Weight Measurement Method Built [facility] Patient Weight 05/19/24 06:59 Weight 103.4 kg Diagnostic Findings Echocardiogram 10/07/2023 LVEF 50-55% Aortic valve sclerosis, moderate without significant aortic valve stenosis Moderate mitral annular calcification mitral valve leaflets are calcified with restricted posterior leaflet mobility severe MR moderate to severe TR PASP 40-50mmHg (10) Fall Encounter type: initial encounter Qualified Code(s): W19.XXXA - Unspecified fall, initial encounter (11) Laceration of scalp Encounter type: initial encounter Qualified Code(s): S01.01XA - Laceration without foreign body of scalp, initial encounter
[2024-05-18] MEDS ORDERED: METOPROLOL TARTRATE 25 MG TAB PO ONE (14:45)
--- OUTSIDE RECORDS SUMMARY | 2024-05-18 14:57 | External Medical Summary | Summary of Care ---
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 Operator Name Role Phone Payam Claire DO Primary Care Provider [phone] Encounter Details Date Type Department Care Team (Late st Contact Info) Description 04/30/2024 Orders Only Nephrology, Ma[facility] [address] [place] [address] Gisele Daugherty MD [address] [facility] [place] [address] Allergies No known active allergiesdocumented as of this encounter (statuses as of 04/30/2024) Medications Medication Sig Dispensed Refills Start Date End Date Status Clopidogrel Bisulfate 75 MG Oral Tablet (pLAVix)Indication s:Coronary artery disease involving [place] coronary artery of [place] heart without angina pectoris Take 1 Tablet by mouth in the morning. Active Diclofenac Sodium 1 % Transdermal Gel Place topically on the skin 4 times a day. Apply to to back as needed Active Rosuvastatin Calcium 10 MG Oral Tablet (Crestor) Take 1 Tablet by mouth in the morning. Take one daily at bedtime . Active Fluticasone Propionate 50 MCG/ACT Nasal Suspension Administer 1 Erskine into nostril in the morning. Active FLUoxetine HCl 10 MG Oral Tablet (PROzac) Take 1 Tablet by mouth in the morning. Active Ketoconazole 2 % External CreamIndications:S eborrheic dermatitis of scalp Apply behind ears twice daily as needed for flares 30 g 07/02/2022 Active Ketoconazole 2 % External Shampoo (Nizoral)Indicatio ns:Seborrheic dermatitis of scalp Apply to scalp and behind ears 2-3 times per week; leave on 3-5 min before rinsing 120 mL 1 07/08/2022 Active Acetaminophen 500 MG Oral Tablet Take 1 Tablet by mouth in the morning and 1 Tablet in the evening. Active Docusate Sodium 100 MG Oral Capsule (Colace) Take 1 Capsule by mouth daily. Active Loratadine 10 MG Oral Capsule Take 1 Capsule by mouth in the morning. Active Melatonin 3 MG Oral Capsule Take 1 Capsule by mouth at bedtime as needed. Active Sulfamethoxazole-T rimethoprim 800-160 MG Oral Tablet (Bactrim DS) Take 1 Tablet by mouth once a day on Friday, Friday, and Friday only. 60 Tablet 5 10/10/2023 Active Vitamin D (Cholecalciferol) 50 MCG (1999) Oral Capsule Take 4,000 Units by mouth daily. 28 Capsule 01/15/2024 Active Metoprolol Succinate ER 25 MG Oral Tablet Extended Release 24 Hour (Toprol XL)Indications:Cor onary artery disease involving chalk[place]ik coronary artery of [place] heart without angina pectoris Take 0.5 Tablets by mouth at bedtime. 15 Tablet 5 01/29/2024 Active Nitroglycerin 0.4 MG Sublingual Tablet Sublingual (Nitrostat)Indicat ions:Coronary artery disease involving chalkyitsik coronary artery of [place] heart without angina pectoris Place 1 Tablet under the tongue every 5 minutes as needed for Pain, Chest. 25 Tablet 3 02/10/2024 Active Tacrolimus 1 MG Oral Capsule (Prograf) Take 2 Capsules by mouth in the morning and 2 Capsules before bedtime. 120 Capsule 3 03/08/2024 Active Torsemide 20 MG Oral Tablet (Demadex)Indicatio ns:Chronic kidney disease, stage 3a (HCC) Take extra 40 mg as needed for wt gain > 3 bs 30 Tablet 5 03/08/2024 Active Torsemide 20 MG Oral Tablet (Demadex) Take 3 Tablets by mouth in the morning and 3 Tablets in the evening. 160 Tablet 03/08/2024 Active Additional Information Patient taking differently:60 mg OralDaily(AM), Reported on 04/14/2024 Potassium Chloride Rosita ER 20 MEQ Oral Tablet Extended Release Take 1 Tablet by mouth in the morning and 1 Tablet at noon and 1 Tablet before bedtime. 90 Tablet 11 03/08/2024 Active Additional Information Patient taking differently:20 mEq OralDaily(AM), Reported on 04/14/2024 guaiFENesin 400 MG Oral Tablet Take 1 Tablet by mouth every 4 hours as needed. Active documented as of this encounter (statuses as of 04/30/2024) Active Problems Problem Noted Date Diagnosed Date [...] of stroke Coronary artery disease invo lving chalkyitsik coronary artery of [place] heart without angina pectoris Pacemaker AICD (automatic cardioverter/defibrillator) pres ent Permanent atrial fibrillation documented as of this encounter (statuses as of 04/30/2024) Resolved Problems Problem Noted Date Diagnosed Date Resolved Date Stage 3b chronic kidney disease 09/25/2023 10/16/2023 Chronic kidney disease, stage 3a 10/14/2022 01/02/2024 Overview: Per CKD protocol Dyslipidemia, goal LDL below 70 01/31/2021 01/13/2023 documented as of this encounter (statuses as of 04/30/2024) Immunizations Name Administration Dates Next Due COVID-19 [...] Date Recorded PHQ Adult Total Score 0 03/16/2024 Hunger Vital Sign Answer Date Recorded Within the past 12 months, y ou worried that your food would run out before you got the money to buy more. Never true 03/16/20 24 Within the past 12 months, t he food you bought just didn't last and you didn't have money to get more. Never true 03/16/2024 Sex and Gender Information Value Date Recorded [...] Care Team (Late st Contact Info) Description 05/19/2024 10:00 AM EDT Imaging Radiology [facility]st [facility], [place] [address] [facility] [place] [address] 05/19/2024 10:30 AM EDT Imaging Vascular Lab, [facility] II 2nd Floor, [place] [address] [place] [address] 05/26/2024 9:10 AM EDT Office Visit Vascular Surgery, [address] [place] [address] Alec Hinton MD [address] [place] [address] 06/04/2024 1:30 PM EDT Office Visit Cardiology, [facility] [address] [facility] [place] [address] Amada Cramer PA-C [address] [facility] [place] [address] 10/04/2024 4:00 PM EST Office Visit Hematology/Oncology [facility] [address] [place] [id number] Roberto Camarena MD [address] [place] [address] 11/10/2024 10:20 AM EST Office Visit Family Practice [facility] [place] [address] [place] [address] Payam Claire, [address] [place] [address] 11/23/2024 1:30 PM EST Cardiac Studies Cardiology [address] [place] [address] [facility] [address] [facility] [place] [address] Health Maintenance Due Date Last Done Comments Zoster Vaccines (1 of 2) 11/08/2013 09/13/2013 COVID-19 Vaccine (3 - Moderna risk series) 03/10/2021 02/10/2021, 01/02/2021 Depression Screening 03/16/2025 03/16/2024 GFR 04/28/2025 04/28/2024, 05/07/2024, 03/31/2024, Additional history exists Albumin/Creatinine Ratio 01/07/2027 01/07/2024, 10/01 DTaP,Tdap,and Td Vaccines (2 - Td or Tdap) 10/10/2030 10/10/2020 Influenza Vaccine (FLU shot) Completed , 09/19/2022, 09/07/2020, Additional history exists Pneumococcal Vaccine: 65+ Years Completed 03/12/2024, 10/01/2019, 08/13/2013 GARDASIL-HPV IMMUNIZATION SERIES Aged Out [...] Priority Date/Time Associated Diagnosis Comments CHEMISTRY-OUTSIDE Routine 04/07/2024 documented in this encounter Results * (ABNORMAL) CHEMISTRY-OUTSIDE (04/07/2024) Not all results display below - see scan for full detail OUTSIDE LAB (SEE SCANNED REPORT) Comment:[facility]-CBC CREATININE-OUTSID E LAB OUTSIDE LAB (SEE SCANNED REPORT) EGFR-OUTSIDE LAB OUT SIDE LAB (SEE SCANNED REPORT) POTASSIUM-OUTSIDE LAB OUTSIDE LAB (SEE SCANNED REPORT) GLUCOSE-OUTSIDE LAB OUTSIDE LAB (SEE SCANNED REPORT) HOURS FASTING [...] LAB OUTSIDE LAB (SEE SCANNED REPORT) HEMOGLOBIN, [id number] LAB OUTSIDE LAB (SEE SCANNED REPORT) PHOSPHORUS-OUTSID E LAB OUTSIDE LAB (SEE SCANNED REPORT) PTH-OUTSIDE LAB OUTS VALERIO LAB (SEE SCANNED REPORT) MICROALBUMIN RATIO-OUTSIDE LAB OUTSIDE LA B (SEE SCANNED REPORT) PROTEIN, UA-OUTSIDE LAB OUTSIDE LAB (SEE SCANNED REPORT) HGB 8.6(A) 14 - 18 G/DL OUTSIDE LAB (SEE SCANNED REPORT) 04/07/2024 Gisele Daugherty MD LABORATORY OUTSIDE LAB (SEE SCANNED REPORT) documented in this encounter Advance Directives Documents on File Type Date Recorded 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 Question Answer Comments Discussion of Advance Directives occurred with: Patient * Full Code Date Activated Date Inactivated Comments 09/25/2023 10:59 AM 09/25/2023 12:41 PM This ord er reflects the patients wishes and were consensually agreed upon. Question Answer Comments Discussion of Advance Directives occurred with: Patient Healthcare Agents on File Name Relationship Healthcare Agent Relationshi p Communication Luis Troy Adult Child Health Care Age nt (per Health Care Power of Junior Programmer Analyst document) Care Teams Hooking Machine Operator Relationship Specialty Start Date End Date Payam Claire DO [address] [place] [address] PCP - General Family Medicine 09/08/23 documented as of this encounter
--- OUTSIDE RECORDS SUMMARY | 2024-05-18 14:57 | External Medical Summary | Summary of Care ---
Author Name Unknown Organization [facility] Address [address] [place] [address] Phone [phone] Care Team Providers Care Manager Customer Service Name Role Phone Payam Claire DO Primary Care Provider [phone] Encounter Details Date Type Department Care Team (Late st Contact Info) Description 04/29/2024 Orders Only Nephrology, Maikel Hsu 200 [facility] [place] [address] Gisele Daugherty MD 200 [facility] [place] [address] Allergies No known active allergiesdocumented as of this encounter (statuses as of 04/29/2024) Medications Medication Sig Dispensed Refills Start Date End Date Status Clopidogrel Bisulfate 75 MG Oral Tablet (pLAVix)Indication s:Coronary artery disease involving kenaitze coronary artery of kenaitze heart without angina pectoris Take 1 Tablet [...] Propionate 50 MCG/ACT Nasal Suspension Administer 1 [place] into nostril in the morning. Active FLUoxetine [...] Hour (Toprol XL)Indications:Cor onary artery disease involving kenaitze coronary artery of kenaitze heart without angina pectoris Take 0.5 Tablets by mouth at bedtime. 15 Tablet 5 01/29/2024 Active Nitroglycerin 0.4 MG Sublingual Tablet Sublingual (Nitrostat)Indicat ions:Coronary artery disease involving kenaitze coronary artery of kenaitze heart without angina pectoris Place 1 Tablet [...] as of this encounter (statuses as of 04/29/2024) Active Problems Problem Noted Date Diagnosed Date [...] of stroke Coronary artery disease invo lving kenaitze coronary artery of kenaitze heart without angina pectoris Pacemaker AICD (automatic cardioverter/defibrillator) pres ent Permanent atrial fibrillation documented as of this encounter (statuses as of 04/29/2024) Resolved Problems Problem Noted Date Diagnosed Date Resolved Date Stage 3b chronic kidney disease 09/25/2023 10/16/2023 Chronic kidney disease, stage 3a 10/14/2022 01/02/2024 Overview: Per CKD protocol Dyslipidemia, goal LDL below 70 01/31/2021 01/13/2023 documented as of this encounter (statuses as of 04/29/2024) Immunizations Name Administration Dates Next Due COVID-19 [...] 05/19/2024 10:00 AM EDT Imaging Radiology [facility] 1st [facility] [place] [address] [facility] [place] [address] 05/19/2024 10:30 AM EDT Imaging Vascular Lab, [facility] II 2nd Floor, [place] [address] [place] [address] 05/26/2024 9:10 AM EDT Office Visit Vascular Surgery, [address] [place] [address] Alec Hinton MD [address] [place] [address] 06/04/2024 1:30 PM EDT Office Visit Cardiology, [facility] [address] [facility] [place] [address] Amada Cramer PA-C 400 [facility] [place] [address] 10/04/2024 4:00 PM EST Office Visit Hematology/Oncology [facility] [address] [place] [id number] Roberto Camarena MD [address] [place] [address] 11/10/2024 10:20 AM EST Office Visit Family Practice [facility] [place] [address] [place] [address] Payam Claire, [address] [place] [address] 11/23/2024 1:30 PM EST Cardiac Studies Cardiology [address] [place] [address] [facility] 132 [facility] [place] [address] Pending Results Name Type Priority Associated Diagnoses Date /Time CHEMISTRY-OUTSIDE Lab Routine 024 Health Maintenance Due Date Last Done Comments Zoster Vaccines (1 of 2) 11/08/2013 09/13/2013 COVID-19 Vaccine (3 - Moderna risk series) 03/10/2021 02/10/2021, 01/02/2021 Depression Screening 03/16/2025 03/16/2024 GFR 04/07/2025 04/07/2024, 05/0 12/2023, 03/18/2024, Additional history exists Albumin/Creatinine Ratio 01/07/2027 01/07/2024, [...] Documents on File Type Date Recorded Patient Director Diabetes Expl anation Power of Commercial Leasing Agent 11/29/2019 POWER OF A TTORNEY * No [...] Age nt (per Health Care Power of Commercial Leasing Agent document) Care Teams Manager Customer Service Relationship Specialty Start Date End Date Payam Claire DO [address] [place] [address] PCP - General Family Medicine 09/08/23 documented as of this encounter
--- OUTSIDE RECORDS SUMMARY | 2024-05-18 14:57 | External Medical Summary | Summary of Care ---
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*; Monoclonal gammopathy; Nephrotic range proteinuria; Nephrotic syndrome; Other hypervolemia; Lung nodule; Infrarenal abdominal aortic aneurysm (AAA) without rupture (HCC); Kidney disease, chronic, stage IV (GFR 15-29 ml/min) (HCC) Allergies No known active allergiesdocumented as of this encounter (statuses as of 05/10/2024) Medications Medication Sig Dispensed Refills Start Date End Date Status Clopidogrel Bisulfate 75 MG Oral Tablet (pLAVix)Indication s:Coronary artery disease involving shag[place] coronary artery of [place] heart without angina pectoris Take 1 Tablet [...] Propionate 50 MCG/ACT Nasal Suspension Administer 1 [place] into nostril in the morning. Active FLUoxetine [...] Hour (Toprol XL)Indications:Cor onary artery disease involving [place] coronary artery of shag[place] heart without angina pectoris Take 0.5 Tablets by mouth at bedtime. 15 Tablet 5 01/29/2024 Active Nitroglycerin 0.4 MG Sublingual Tablet Sublingual (Nitrostat)Indicat ions:Coronary artery disease involving [place] coronary artery of shagel[place] heart without angina pectoris Place 1 Tablet [...] the evening. 160 Tablet 5 03/08/2024 Active Additional Information Patient taking differently:60 [...] as of this encounter (statuses as of 05/10/2024) Active Problems Problem Noted Date Diagnosed Date [...] of stroke Coronary artery disease invo lving shag[place] coronary artery of [place] heart without angina pectoris Pacemaker AICD (automatic cardioverter/defibrillator) pres ent Permanent atrial fibrillation documented as of this encounter (statuses as of 05/10/2024) Resolved Problems Problem Noted Date Diagnosed Date Resolved Date Stage 3b chronic kidney disease 09/25/2023 10/16/2023 Chronic kidney disease, stage 3a 10/14/2022 01/02/2024 Overview: Per CKD protocol Dyslipidemia, goal LDL below 70 01/31/2021 01/13/2023 documented as of this encounter (statuses as of 05/10/2024) Immunizations Name Administration Dates Next Due COVID-19 [...] Sign Reading Time Taken Comments Blood Pressure 121/69 04/14/2024 11:00 AM EDT Pulse 77 04/14/2024 11:00 AM EDT Temperature 36.3 C (97.4 F) 04/14/2024 11:00 AM E DT Respiratory Rate 18 04/14/2024 11:00 AM EDT Oxygen Saturation 97% 04/14/2024 11:00 AM EDT Inhaled Oxygen Concentration - - Weight 105.2 kg (232 lb) 04/14/2024 11:00 AM EDT Height - - Body Mass Index 28.24 11/05/2023 8:34 AM EST documented in this encounter Functional Status Functional [...] No 09/25/2023 documented as of this encounter Patient Instructions * Patient Instructions* Gisele Daugherty MD - 04/14/2024 11:36 AM EDT -recommend compression socks to knee by day; if not able to do compression socks, recommend tubigrips from midfoot to knee -add second dose of torsemide 60 mg Mon, Wed, Fri, Sat to be taken with midday meal -will recheck labs in about 2 weeks on April 28 including tacrolimus trough -on day of lab recheck, will have Kristen Magana send us updates on weights and blood pressures checked > BP to be checked daily and weights too until 04/28 -will have my nurses reach out to [facility] day before labs -no change to other medications documented in this encounter Progress Notes * Gisele Daugherty MD - 04/14/2024 11:13 AM EDT Images from the original note were not included. NEPHROLOGY CLINIC [place] [address] 04/14/2024, 11:13 AM Patient Name: Leonidas Troy BACKGROUND: 83 year old male presents for hospital d/c visit after 03/12-03/15 [facility] admission for altered mental status in setting of parainfluenza infection and on immunosuppression for membranous nephropathy. 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 Follows w/ [facility] cardiology. 4 admissions [facility] summer w/ volume overload. Unintended wt loss (May 250 lb, aug 240s's) Admitted [facility] 09/23 -09/25/23 for decompensated heart failure ultimately attributed to nephrotic syndrome, then [place] [facility] [place]02. Found during that admission to have 11 g proteinuria , w/PLA2 R level 437 and IgG Conception in blood/urine > so primary MN and MGRS. Serum albumin mid to high 2's. 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 Renal biopsy was polyclonal notmonoclonal. He received 1 g Rituxan on October 02 with 100 mg methylprednisolone premedication aswell as Tylenol and Benadryl. In mid October we made a pivot from rituxan therapy to tacrolimus d/t unacceptable troponin elevation on readmission to [facility] 10/06-10/08/23; requirements for labs including tacro troughs were explained. At March 2024 visit: >>Weights run mid to high 220s 02/05-02/17; then 230 lb 02/19- 02/19; then high 220s 02/22-02/26; then 03/01-03/05 230-233 lb >>BP same timeframe AM range 104-179 systolic; HR range 42-92 (not always reported) more difficult to trend SBP d/t lability but genreally 110-130s through 02/23; then 140-150s through >>Falls every 4-6 wks >> most recently fell about 1 wk back and w/ large bruise back >>Using salt substitue " new salt" Pt accompanied by son Luis to visits. TODAY 04/14/2024: admitted [facility] w/ AMS 3 days mid as above. Found to have parainfluenza and ?RLL pneumonia. Noted on imaging to have 1.6 cm irregular subpleural RML nodule as well as moderate R pleural effusion >> f/u CT recommended. D/c on torsemide 60 mg bid, same dose as [employer]; [id number] increased d/t HTN Son notes pt more puffy gurwidner in legs and face too; not himself. Torsemide dose had been lowered recently d/t worsening renal function. Acc by son Luis who reaffirms pt is for conservative measures if needed for ESRD; no dialysis. Pt denie ssob, leg pain, worse edema. No chest pain, no palptiations, no falls; cough /URI sx resolved. Some weakness ongonig and weigth is increasing Current Outpatient Medications Medication Sig Dispense Refill Clopidogrel Bisulfate 75 MG Oral Tablet (pLAVix) Take 1 Tablet by mouth in the morning. Diclofenac Sodium 1 % Transdermal Gel Place topically on the skin 4 times a day. Apply to to back as needed Rosuvastatin Calcium 10 MG Oral Tablet (Crestor) Take 1 Tablet by mouth in the morning. Take one daily at bedtime . Fluticasone Propionate 50 MCG/ACT Nasal Suspension Administer 1 [place] into nostril in the morning. FLUoxetine HCl 10 MG Oral Tablet (PROzac) Take 1 Tablet by mouth in the morning. Acetaminophen 500 MG Oral Tablet Take 1 Tablet by mouth in the morning and 1 Tablet in the evening. Docusate Sodium 100 MG Oral Capsule (Colace) Take 1 Capsule by mouth daily. Loratadine 10 MG Oral Capsule Take 1 Capsule by mouth in the morning. Melatonin 3 MG Oral Capsule Take 1 Capsule by mouth at bedtime as needed. Sulfamethoxazole-Trimethoprim 800-160 MG Oral Tablet (Bactrim DS) Take 1 Tablet by mouth once a dayon Friday, Friday, and Friday only. 60 Tablet 5 Vitamin D (Cholecalciferol) 50 MCG (2000 UT) Oral Capsule Take 4,000 Units by mouth daily. 28 Capsule 11 Metoprolol Succinate ER 25 MG Oral Tablet Extended Release 24 Hour (Toprol XL) Take 0.5 Tablets by mouth at bedtime. 15 Tablet 5 Tacrolimus 1 MG Oral Capsule (Prograf) Take 2 Capsules by mouth in the morning and 2 Capsules before bedtime. 120 Capsule 3 Torsemide 20 MG Oral Tablet (Demadex) Take 3 Tablets by mouth in the morning and 3 Tablets in the evening. (Patient taking differently: Take 3 Tablets by mouth in the morning.) 160 Tablet 5 Potassium Chloride Rosita ER 20 MEQ Oral Tablet Extended Release Take 1 Tablet by mouth in the morning and 1 Tablet at noon and 1 Tablet before bedtime. (Patient taking differently: Take 1 Tablet by mouth in the morning.) 90 Tablet 11 guaiFENesin 400 MG Oral Tablet Take 1 Tablet by mouth every 4 hours as needed. Ketoconazole 2 % External Cream Apply behind ears twice daily as needed for flares 30 g 0 Ketoconazole 2 % External Shampoo (Nizoral) Apply to scalp and behind ears 2-3 times per week; leave on 3-5 min before rinsing 120 mL 1 Nitroglycerin 0.4 MG Sublingual Tablet Sublingual (Nitrostat) Place 1 Tablet under the tongue every5 minutes as needed for Pain, Chest. 25 Tablet 3 Torsemide 20 MG Oral Tablet (Demadex) Take extra 40 mg as needed for wt gain > 3 bs 30 Tablet 5 No current facility-administered medications for this visit. Review of patient's allergies indicates: No Known Allergies PHYSICAL EXAMINATION: BP Readings from Last 6 Encounters: 04/14/24 121/69 04/12/24 112/70 03/31/24 123/72 03/08/24 132/79 02/24/24 136/82 01/29/24 109/56 Wt Readings from Last 6 Encounters: 04/14/24 105.2 kg (232 lb) 04/12/24 103 kg (227 lb) 03/31/24 104.4 kg (230 lb 1.6 oz) 03/08/24 108 kg (238 lb) 02/24/24 105.1 kg (231 lb 12.8 oz) 01/29/24 104.7 kg (230 lb 12.8 oz) Pulse Readings from Last 6 Encounters: 04/14/24 77 04/12/24 79 03/31/24 91 03/08/24 79 02/24/24 62 01/29/24 79 NAD, oriented x 3, ambulatory w/ cane Normocephalic, atraumatic, eomi nonicteric sclerae MMM Supple neck Irregularly irregular w/ some bigeminy (?) in 70s and blowing SM w/o g/r; no TEDS 3+ edema CTAB w/ reduced air mvt NT abd, +BS, soft No cyanosis or clubbing No rash; skin tear 1.5 cm base of L thumb No tremor, focal or global weakness; fluent speech when asked and appropriate; poor historian LABS: Recent Labs Units 04/28/24 0000 04/07/24 0000 03/31/24 1434 03/18/24 0000 02/04/24 0000 01/19/24 0907 12/17/23 0000 10/09/23 1341 10/02/23 0316 SODIUM - [facility] mmol/L -- -- 140 -- -- 142 -- 142 140 POTASSIUM - [facility] mmol/L -- -- 4.3 -- -- 4.0 -- 4.5 3.9 POTASSIUM-OUTSIDE LAB MMOL/L 4.0 4.0 -- 4.6 < > -- < > -- -- CHLORIDE - [facility] mmol/L -- -- 106 -- -- 106 -- 112* 111* CO2 - [facility] mmol/L -- -- 25 -- -- 21* -- 22 20* EGFR-OUTSIDE LAB ML/MIN/1.73M2 19.1 22.4 -- 16.6 < > -- < > -- -- BUN - [facility] mg/dL -- -- 42* -- -- 36* -- 33* 46* CREATININE - [facility] mg/dL -- -- 2.4* -- -- 2.1* -- 2.3* 2.1* CREATININE-OUTSIDE LAB MG/DL 2.89* 2.53* -- 3.24* < > -- < > -- -- ESTIMATED GLOMERULAR FILTRATION RATE - [facility] mL/min -- -- 26* -- -- 31* -- 27* 31* < > = values in this interval not displayed. Recent Labs Units 04/07/24 0000 03/31/24 1434 03/18/24 0000 03/03/24 0000 01/19/24 0907 06/26/23 1021 10/11/22 1017 HGB 8.6* 8.7* 8.6* 9.1* 9.5* < > 12.9* FERRITIN - [facility] ng/mL -- -- -- -- -- -- 442* TRANSFERRIN SATURATION PERCENT - [facility] % -- -- -- -- 40 -- 58* < > = values in this interval not displayed. Recent Labs Units 03/31/24 1434 01/19/24 0907 01/07/24 0000 10/09/23 1341 10/02/23 0316 10/01/23 0603 09/30/23 0637 09/29/23 0856 CALCIUM - [facility] mg/dL 9.1 9.6 -- 8.3* 7.8* 7.9* 8.0* 8.0* PHOSPHORUS - [facility] mg/dL -- -- -- -- 3.1 2.8 2.9 2.3* PTH - [facility] pg/mL -- -- -- 79* -- -- -- -- PTH-OUTSIDE LAB PG/ML -- -- 74.5 -- -- -- -- -- No results for input(s): "HGBA1C" in the last 37455 hours. Recent Labs Units 10/13/23 1623 ALBUMIN / CREATININE RATIO, URINE - [facility] mg/g Creat 4,103* Recent Labs Units 10/13/23 1623 08/12/23 1616 CLARITY, URINE - [facility] Clear Clear GLUCOSE, URINE - [facility] mg/dL Negative 100* BILIRUBIN, URINE - [facility] Negative Negative KETONE, URINE - [facility] mg/dL Negative Negative SPECIFIC GRAVITY, URINE - [facility] 1.011 1.034* BLOOD, URINE - [facility] Small* Large* PH, URINE - [facility] Units 6.0 6.5 PROTEIN, URINE - [facility] mg/dL 100* >300* UROBILINOGEN, URINE - [facility] mg/dL Normal 2.0* NITRITE, URINE - [facility] Negative Negative ESTERASE, URINE - [facility] Negative Negative BACTERIA, URINE - [facility] /HPF 0-25 51-100* WBC, URINE - [facility] /HPF 0-2 0-2 RBC, URINE - [facility] /HPF 3-5* 50+* ASSESSMENT AND PLAN: 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 (Primary) - TACROLIMUS LEVEL; Future; Expected date: 04/21/2024 - BASIC METABOLIC PANEL; Future; Expected date: 04/21/2024 Monoclonal gammopathy - TACROLIMUS LEVEL; Future; Expected date: 04/21/2024 - BASIC METABOLIC PANEL; Future; Expected date: 04/21/2024 Nephrotic range proteinuria - TACROLIMUS LEVEL; Future; Expected date: 04/21/2024 - BASIC METABOLIC PANEL; Future; Expected date: 04/21/2024 Nephrotic syndrome - TACROLIMUS LEVEL; Future; Expected date: 04/21/2024 - BASIC METABOLIC PANEL; Future; Expected date: 04/21/2024 Other hypervolemia - TACROLIMUS LEVEL; Future; Expected date: 04/21/2024 - BASIC METABOLIC PANEL; Future; Expected date: 04/21/2024 Lung nodule Infrarenal abdominal aortic aneurysm (AAA) without rupture (HCC) Kidney disease, chronic, stage IV (GFR 15-29 ml/min) ([facility]) Follow Up: Return in about 6 weeks (around 05/26/2024) for clinic visit w/ . | For: clinic visit w/ | Check-out note: only waitlist Ongoing challenges balancing voluem OL from MN/ NS with renal function as diuretics are increased -up diuretics as below -conservative measures as below -f/u labs and monitoring of BP/wts -continue FK current dose w/ monitoring ; target 4-8 trough Ckd 4 -ESRD is for conservative mgt if need arises MGUS / poor bone bx specimen; not clear MG affeciting kidneys >ensure f/u CT scan early May to mid May re lung nodule -AAA is not for surgical intervention; challenging also w/ his frequent falls to do tight BP control but will work on it Patient Instructions -recommend compression socks to knee by day; if not able to do compression socks, recommend tubigrips from midfoot to knee -add second dose of torsemide 60 mg Mon, Wed, Fri, Sat to be taken with midday meal -will recheck labs in about 2 weeks on April 28 including tacrolimus trough -on day of lab recheck, will have Kristen Magana send us updates on weights and blood pressures checked > BP to be checked daily and weights too until 04/28 -will have my nurses reach out to [facility] day before labs -no change to other medications Gisele Daugherty MD Nephrology, [facility] 200 [facility] [address] CC: Ref: YASMINE WOOD[[id number]] [address] [place] [address] (office) [phone] (fax) PCP: YASMINE WOOD [address] [place] [address] [phone] I spent a total of 40-54 minutes (exact time 45 mins) on the date of service in preparation, delivery, and documentation of the care provided to Leonidas Troy excluding any time spent in the performance of separately billed services. This chart was completed in part utilizing [employer] Speech Voice Recognition Software. Randomword insertions, pronoun errors, and incomplete sentences are an occasional consequence of this system due to software limitations, and ambient noise. Any questions or concerns about the content, text, or information contained within the body of this dictation should be directly addressed to the provider for clarification. documented in this encounter Nursing Notes * Rosio Tomas RN - 04/14/2024 11:05 AM EDT Follow up visit today. Son present for visit today. Continues to have questions regarding over all prognosis as far as kidneys. Records present form [facility]. documented in this encounter Plan of Treatment Upcoming Encounters Date Type Department Care Team (Late st Contact Info) Description 05/19/2024 10:00 AM EDT Imaging Radiology [facility] 1st [facility] [place] [address] [facility] [place] [address] 05/19/2024 10:30 AM EDT Imaging Vascular Lab, [facility] II 2nd Floor, [place] [address] [facility] [place] [address] 05/26/2024 9:10 AM EDT Office Visit Vascular Surgery, [facility] [address] [facility] [place] [address] Alec Hinton MD [address] [place] [address] 05/31/2024 1:00 PM EDT Office Visit Nephrology, [facility] [address] [place] [address] [address] Gisele Daugherty MD [address] [place] [address] 06/04/2024 1:30 PM EDT Office Visit Cardiology, [facility] 132 [facility] [place] [address] Amada Cramer PA-C [address] [place] [address] 10/04/2024 4:00 PM EST Office Visit Hematology/Oncology [facility] [address] [place] [address] [id number] Roberto Camarena MD [address] [place] [address] 11/10/2024 10:20 AM EST Office Visit Family Practice [facility] [address] [address] Yasmine Wood, DO [address] [place] [address] 11/23/2024 1:30 PM EST Cardiac Studies Cardiology [address] [place] [address] Amanda Paceandree [address] [place] [address] Scheduled Orders Name Type Priority Associated Diagnoses Orde r Schedule TACROLIMUS LEVEL Lab Routine 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 Monoclonal gammopathy Nephrotic range proteinuria Nephrotic syndrome Other hypervolemia Expected: 04/21/2024 (Approximate), Expires: 04/21/2025 BASIC METABOLIC PANEL Lab Routine 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 Monoclonal gammopathy Nephrotic range proteinuria Nephrotic syndrome Other hypervolemia Expected: 04/21/2024 (Approximate), Expires: 04/21/2025 Health Maintenance Due Date Last Done Comments Zoster Vaccines (1 of 2) 11/08/2013 09/13/2013 COVID-19 Vaccine (3 - Moderna risk series) 03/10/2021 02/10/2021, 01/02/2021 Depression Screening 03/16/2025 03/16/2024 GFR 04/28/2025 04/28/2024, 0507/2024, 03/31/2024, Additional history exists Albumin/Creatinine Ratio 01/07/2027 01/07/2024, 10/01 DTaP,Tdap,and Td Vaccines (2 - Td or Tdap) 10/10/2030 10/10/2020 Influenza Vaccine (FLU shot) Completed , 09/19/2022, 09/29/2021, Additional history exists Pneumococcal Vaccine: 65+ Years [...] as of this encounter Visit Diagnoses Diagnosis 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- Primary Monoclonal gammopathy Monoclonal paraproteinemia Nephrotic range proteinuria Proteinuria Nephrotic syndrome Nephrotic syndrome with unspecified pathological lesion in kidney Other hypervolemia Lung nodule Solitary pulmonary nodule Infrarenal abdominal aortic aneurysm (AAA) without rupture (HCC) Kidney disease, chronic, stage IV (GFR 15-29 ml/min) (HCC) Chronic kidney disease, Stage IV (severe) documented in this encounter Advance Directives Documents on File Type Date Recorded Patient Commodity Lead Expl anation Power of Manager Party 11/29/2019 POWER OF A TTORNEY * No [...] Agents on File Name Relationship [facility] Luis Troy Adult Child Health Care Age nt (per Health Care Power of Manager Party document) Care Teams Blending Operator Relationship Specialty Start Date End Date Yasmine Wood DO [address] [place], [place] [address] PCP - General Family Medicine 09/08/23 documented as of this encounter
--- OUTSIDE RECORDS SUMMARY | 2024-05-18 14:57 | External Medical Summary | Summary of Care ---
Author Name Unknown Organization [facility] Address [address] [place] [address] Phone [phone] Care Team Providers Care Cone Tender Name Role Phone Payam Claire DO Primary Care Provider [phone] Encounter Details Date Type Department Care Team (Late st Contact Info) Description 04/28/2024 Result Scan Unspecified Department Gisele Daugherty MD [address] [place] [address] <No scans attached> Allergies No known active allergiesdocumented as of this encounter (statuses as of 05/04/2024) Medications Medication Sig Dispensed Refills Start Date End Date Status Clopidogrel Bisulfate 75 MG Oral Tablet (pLAVix)Indication s: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 Active FLUoxetine [...] Friday, Friday, and Friday only. 60 Tablet 10/10/2023 Active Vitamin D (Cholecalciferol) 50 MCG (1999 [place]) Oral Capsule Take 4,000 Units by mouth daily. 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 25 Tablet 02/10/2024 Active Tacrolimus 1 MG Oral Capsule (Prograf) Take 2 Capsules by mouth in the morning and 2 Capsules before bedtime. 120 Capsule 03/08/2024 Active Torsemide 20 MG Oral Tablet (Demadex)Indicatio ns:Chronic kidney disease, stage 3a (HCC) Take extra 40 mg as needed for wt gain > 3 bs 30 Tablet 03/08/2024 Active Torsemide 20 MG Oral Tablet [...] and 1 Tablet before bedtime. 90 Tablet 03/08/2024 Active Additional Information Patient taking differently:20 mEq OralDaily(AM), Reported on 04/14/2024 guaiFENesin 400 MG Oral Tablet Take 1 Tablet by mouth every 4 hours as needed. 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 Pacemaker AICD (automatic cardioverter/defibrillator) pres ent Permanent atrial fibrillation documented as of this encounter (statuses as of 05/04/2024) Resolved Problems Problem Noted Date Diagnosed Date Resolved Date Stage 3b chronic kidney disease 09/25/2023 10/16/2023 Chronic kidney disease, stage 3a 10/14/2022 01/02/2024 Overview: Per CKD protocol Dyslipidemia, goal LDL below 70 01/31/2021 01/13/2023 documented as of this encounter (statuses as of 05/04/2024) Immunizations Name Administration Dates Next Due COVID-19 [...] as of this encounter Miscellaneous Notes * Result Encounter Note - Gisele Daugherty MD - 05/04/2024 11:31 AM EDT Kidney labs stable; tac level ok for now; continue same. documented in this encounter Plan of Treatment Upcoming Encounters Date Type Department Care Team (Late st Contact Info) Description 05/19/2024 10:00 AM EDT Imaging Radiology [facility] 1st Floor, [place] [address] [facility] [place] [address] 05/19/2024 10:30 AM EDT Imaging Vascular Lab, [facility] II 2nd [facility], [place] [address] [facility] [place] [address] 05/26/2024 9:10 AM EDT Office Visit Vascular Surgery, [facility] [address] [facility] [place] [address] Alec Hinton MD [address] [place] [address] 06/04/2024 1:30 PM EDT Office Visit Cardiology, [facility] [address] [facility] [place] [address] Amada Cramer PA-C [address] [place] [address] 10/04/2024 4:00 PM EST Office Visit Hematology/Oncology [facility] [address] [place] [phone] Roberto Camarena MD [address] [place] [address] 11/10/2024 10:20 AM EST Office Visit Family Practice [facility] [address] [place] [address] Payam Claire, DO [address] [facility] [place] [address] 11/23/2024 1:30 PM EST Cardiac Studies Cardiology [address] [place] [address] Isabelle Patel [address] [place] [address] Health Maintenance Due Date Last Done Comments [...] Date/Time Associated Diagnosis Comments OUTSIDE LAB RESULTS 04/28/2024 documented in this encounter Results * OUTSIDE LAB RESULTS (04/28/2024) 04/28/2024 Gisele Daugherty MD LABORATORY documented in this encounter Advance Directives Documents on File Type Date Recorded Patient Electronics Supervisor Expl anation Power of Network Coordinator 11/29/2019 POWER OF A TTORNEY * No [...] File Name Relationship [facility] Communication Luis Troy Adult Child Health Care Age nt (per Health Care Power of Network Coordinator document) Care Teams Cone Tender Relationship Specialty Start Date End Date Payam Claire DO [address] [place] [facility] [place] [address] PCP - General Family Medicine 09/08/23 documented as of this encounter
--- OUTSIDE RECORDS SUMMARY | 2024-05-18 14:57 | External Medical Summary | Summary of Care ---
Author Name Unknown Organization [facility] Address [address] [place] [address] Phone [phone] Care Team Providers Care Energy Trader Name Role Phone Payam Claire DO Primary Care Provider [phone] Encounter Details Date Type Department Care Team (Late st Contact Info) Description 05/07/2024 Result Scan Unspecified Department Deondre Cat MD [address] [place] [address] <No scans attached> Allergies No known active allergiesdocumented as of this encounter (statuses as of 05/07/2024) Medications Medication Sig Dispensed Refills Start Date End Date Status Clopidogrel Bisulfate 75 MG Oral Tablet (pLAVix)Indication s:Coronary artery disease involving hoh coronary artery of hoh heart without angina pectoris Take 1 Tablet [...] Propionate 50 MCG/ACT Nasal Suspension Administer 1 [place] into nostril in the morning. Active FLUoxetine [...] Hour (Toprol XL)Indications:Cor onary artery disease involving hoh coronary artery of hoh heart without angina pectoris Take 0.5 Tablets by mouth at bedtime. 15 Tablet 01/29/2024 Active Nitroglycerin 0.4 MG Sublingual Tablet Sublingual (Nitrostat)Indicat ions:Coronary artery disease involving hoh coronary artery of hoh heart without angina pectoris Place 1 Tablet [...] as of this encounter (statuses as of 05/07/2024) Active Problems Problem Noted Date Diagnosed Date [...] of stroke Coronary artery disease invo lving hoh coronary artery of hoh heart without angina pectoris Pacemaker AICD (automatic cardioverter/defibrillator) pres ent Permanent atrial fibrillation documented as of this encounter (statuses as of 05/07/2024) Resolved Problems Problem Noted Date Diagnosed Date Resolved Date Stage 3b chronic kidney disease 09/25/2023 10/16/2023 Chronic kidney disease, stage 3a 10/14/2022 01/02/2024 Overview: Per CKD protocol Dyslipidemia, goal LDL below 70 01/31/2021 01/13/2023 documented as of this encounter (statuses as of 05/07/2024) Immunizations Name Administration Dates Next Due COVID-19 [...] Description 05/19/2024 10:00 AM EDT Imaging Radiology [facility] 1st Floor, [place] [address] [facility] [place] [address] 05/19/2024 10:30 AM EDT Imaging Vascular Lab, [facility] II 2nd Floor, [place] 132 [facility] [place] [address] 05/26/2024 9:10 AM EDT Office Visit Vascular Surgery, [facility] [address] [place] [address] Alec Hinton MD [address] [place] [address] 05/31/2024 1:00 PM EDT Office Visit Nephrology, [facility] [address] [place] [address] Gisele Daugherty MD [address] [place] [address] [address] 06/04/2024 1:30 PM EDT Office Visit Cardiology, [facility] [address] [place] [address] Amada Cramer PA-C [address] [place] [address] 10/04/2024 4:00 PM EST Office Visit Hematology/Oncology [facility] [address] [place] [phone] Roberto Camarena MD [address] [place] [address] 11/10/2024 10:20 AM EST Office Visit Family Practice [facility] [address] [place] [address] Payam Claire, DO [address] [facility] [place] [address] 11/23/2024 1:30 PM EST Cardiac Studies Cardiology [address] [place] [address] Isabelle Patel [address] [place] [address] Health Maintenance Due Date Last Done Comments Zoster Vaccines (1 of 2) 11/08/2013 09/13/2013 COVID-19 Vaccine (3 - Moderna risk series) 03/10/2021 02/10/2021, 01/02/2021 Depression Screening 03/16/2025 03/16/2024 GFR 04/28/2025 04/28/2024, 07/2024, 03/31/2024, Additional history exists Albumin/Creatinine Ratio 01/07/2027 [...] Procedure Name Priority Date/Time Associated Diagnosis Comments CARDIOLOGY SCANNED RESULT 05/07/2024 documented in this encounter Results * CARDIOLOGY SCANNED RESULT (05/07/2024) 05/07/2024 Deondre Cat MD OTHER documented in this encounter Advance Directives Documents on File Type Date Recorded Patient Data Assistant Expl anation Power of Mattress Filling Machine Tender 11/29/2019 POWER OF A TTORNEY * No [...] Age nt (per Health Care Power of Mattress Filling Machine Tender document) Care Teams Energy Trader Relationship Specialty Start Date End Date Payam Claire DO [address] [place] [address] PCP - General Family Medicine 09/08/23 documented as of this encounter
--- OUTSIDE RECORDS SUMMARY | 2024-05-18 14:58 | External Medical Summary | Summary of Care ---
Author Name Unknown Organization [facility] Address [address] [place] [address] Phone [phone] Care Team Providers Care Family Medicine Physician Assistant Name Role Phone Payam Claire DO Primary Care Provider [phone] Reason for Visit * Reason Onset Date Comments Follow Up 04/28/2024 Encounter Details Date Type Department Care Team (Late st Contact Info) Description 04/28/2024 Telephone Nephrology, [address] [place] [address] Gisele Daugherty MD [address] [place] [address] Follow Up Allergies No known active allergiesdocumented as of this encounter (statuses as of 04/28/2024) Medications Medication Sig Dispensed Refills Start Date End Date Status Clopidogrel Bisulfate 75 MG Oral Tablet (pLAVix)Indication s:Coronary artery disease involving pauma coronary artery of pauma heart without angina pectoris Take 1 Tablet [...] Propionate 50 MCG/ACT Nasal Suspension Administer 1 [place] into nostril in the morning. Active FLUoxetine [...] Hour (Toprol XL)Indications:Cor onary artery disease involving pauma coronary artery of pauma heart without angina pectoris Take 0.5 Tablets by mouth at bedtime. 15 Tablet 5 01/29/2024 Active Nitroglycerin 0.4 MG Sublingual Tablet Sublingual (Nitrostat)Indicat ions:Coronary artery disease involving pauma coronary artery of pauma heart without angina pectoris Place 1 Tablet [...] as of this encounter (statuses as of 04/28/2024) Active Problems Problem Noted Date Diagnosed Date [...] of stroke Coronary artery disease invo lving pauma coronary artery of pauma heart without angina pectoris Pacemaker AICD (automatic cardioverter/defibrillator) pres ent Permanent atrial fibrillation documented as of this encounter (statuses as of 04/28/2024) Resolved Problems Problem Noted Date Diagnosed Date Resolved Date Stage 3b chronic kidney disease 09/25/2023 10/16/2023 Chronic kidney disease, stage 3a 10/14/2022 01/02/2024 Overview: Per CKD protocol Dyslipidemia, goal LDL below 70 01/31/2021 01/13/2023 documented as of this encounter (statuses as of 04/28/2024) Immunizations Name Administration Dates Next Due COVID-19 [...] Telephone Encounter - Yissel Chew LPN - 04/28/2024 4:57 PM EDT Received BP/Weight logs and Bmp via fax from [facility] sent to [facility] for scanning May need to fax originals to Dr Daugherty in AM * Telephone Encounter - Yissel Chew LPN - 04/28/2024 8:33 AM EDT LMM for John at [facility] to fax BP weight logs to our office * Telephone Encounter - Yissel Chew LPN - 04/28/2024 8:33 AM EDT ----- Message from Yissel Caro sent at 04/21/2024 12:35 PM EDT ----- Regarding: Follow up Please call [facility] for updates on weight and BP logs documented in this encounter Plan of Treatment Upcoming Encounters Date Type Department Care Team (Late st Contact Info) Description 05/19/2024 10:00 AM EDT Imaging Radiology [facility] [address]st [address] [address] 05/19/2024 10:30 AM EDT Imaging Vascular Lab, [facility] II 2nd [facility], [place] 132 [facility] [place] [address] 05/26/2024 9:10 AM EDT Office Visit Vascular Surgery, [address] [place] [address] Alec Hinton MD [address] [place] [address] 06/04/2024 1:30 PM EDT Office Visit Cardiology, [facility] 132 [facility] [place] [address] Amada Cramer PA-C [address] [place] [address] 10/04/2024 4:00 PM EST Office Visit Hematology/Oncology [facility] [address] [place] [phone] Roberto Camarena MD [address] [place] [address] 11/10/2024 10:20 AM EST Office Visit Family Practice [facility] [place] 200 [facility] [place] [address] Payam Claire DO [address] [place] [address] 11/23/2024 1:30 PM EST Cardiac Studies Cardiology [address] [place] [address] Isabelle Patel [facility] [address] [facility] [place] [address] Health Maintenance Due Date Last Done Comments Zoster Vaccines (1 of 2) 11/08/2013 09/13/2013 COVID-19 Vaccine (3 - Moderna risk series) 03/10/2021 02/10/2021, 01/02/2021 Depression Screening 03/16/2025 03/16/2024 GFR 04/07/2025 04/07/2024, 0512/2023, 03/18/2024, Additional history exists Albumin/Creatinine Ratio 01/07/2027 [...] Documents on File Type Date Recorded Patient Power Sweeper Operator Expl anation Power of Aerial Planting And Cultivation Manager 11/29/2019 POWER OF A TTORNEY * No [...] Agents on File Name [facility] Luis Troy Adult Child Health Care Age nt (per Health Care Power of Aerial Planting And Cultivation Manager document) Care Teams Family Medicine Physician Assistant Relationship Specialty Start Date End Date Payam Claire DO [address] [place] [address] PCP - General Family Medicine 09/08/23 documented as of this encounter
[2024-05-18] MEDS: METOPROLOL SUCC 25MG EXT REL TAB PO ONE (15:21)
[2024-05-18] MEDS ORDERED: ONDANSETRON INJ 2 MG/ML 2 ML VIAL IV PRN (15:37)
[2024-05-18] MEDS ORDERED: POLYETHYLENE (MIRALAX) 17 GM PACK PO PRN (15:37)
[2024-05-18] MEDS: FLUTICASONE PROPIONATE NA SPR 16 GM BTL NAE SCH (20:41)
[2024-05-18] MEDS: ROSUVASTATIN CALCIUM 10 MG TAB PO SCH (20:41)
[2024-05-18] MEDS: POTASSIUM CHLORIDE CRTAB 20 MEQ TABCR PO SCH (20:41)
[2024-05-18] MEDS: TACROLIMUS 1 MG CAP PO SCH (20:41)
[2024-05-19 05:35] LABS: Hematocrit (blood only) 27.2 % (42.0-52.0); Hemoglobin 9.3 g/dl (14.0-18.0); Mean Corpuscular Hemoglobin 36.8 pg (25.0-34.0); Mean Corpuscular Hgb Conc 34.2 g/dL (32.0-36.0); Mean Corpuscular Volume 107.5 fL (80.0-100.0); Mean Platelet Volume 10.7 fL (9.4-12.4); Platelet Count 94 K/uL (130-400); RDW Coefficient of Variation 13.6 % (11.5-14.5); Red Blood Count 2.53 M/uL (4.70-6.10); White Blood Count 4.87 K/ul (4.8-10.8)
[2024-05-19 05:51] LABS: BUN Creatinine Ratio 17.6 (10-20); Calcium 9.6 mg/dl (8.6-10.3); Creatinine Clr Calc Pharmacy 21.2 ml/min; Est GFR (African American) 19.6 ml/min; Est GFR (Non-African American) 16.9 ml/min; Magnesium 2.1 mg/dl (1.7-2.4); Potassium 4.3 mmol/L (3.5-5.1)
--- NOTE | 2024-05-19 08:05 | CT Scan Report ---
CT head/brain wo con CLINICAL HISTORY: fall on eliqus, scalp lac Technique: Contiguous axial CT images of the head were acquired from the base of the skull to the tierney adryan without intravenous contrast administration. Images were viewed in brain, subdural and [facility]. Automated dose lowering techniques and/or adjustment according to patient size were utilized for this exam. Comparison: Comparison is made to CT head 05/18/2024 Findings: Areas of decreased attenuation are present in the periventricular and subcortical white matter bilate rally consistent with small vessel ischemic disease. Generalized cerebral atrophy with commensurate e nlargement of the ventricles, sulci, and cisterns is also present. There is no acute intracranial hem orrhage or evidence of acute territorial infarction. No shift of the midline structures, mass effect, or extra-axial abnormalities are shown. Atherosclerotic calcifications are present in the intracran ial segments of the internal carotid arteries. Right parietal encephalomalacia is unchanged compatibl e with prior infarct. Mucous retention cysts are seen in the right maxillary sinus. The orbits appear normal. There are no acute fractures of the calvaria. Scalp swelling is seen in the posterior apex. Impression: No acute intracranial hemorrhage or skull fractures. Scalp swelling is seen in the posterior apical s oft tissues. ACT 112: Negative or not required by law. Electronically signed by: Jc Coyle M.D. 05/19/2024 8:04 AM
[2024-05-19] MEDS: SULFAMETHOXAZOLE/TRIMETHOPRIM DS 800/160MG TAB PO SCH (08:25)
[2024-05-19] MEDS: DOCUSATE SODIUM 100 MG CAP PO SCH (08:25)
[2024-05-19] MEDS: guaiFENesin 200 MG TAB PO PRN (08:26)
[2024-05-19] MEDS: FLUoxetine HCL 10 MG CAP PO SCH (08:26)
[2024-05-19] MEDS: LORATADINE 10 MG TAB PO SCH (08:26)
[2024-05-19] MEDS: CHOLECALCIFEROL 25 MCG (1000 UNITS) TAB PO SCH (08:27)
--- NOTE | 2024-05-19 08:32 | Cardiology Progress Note ---
Date of Service May 19, 2024 Assessment & Plan (1) Ventricular bigeminy: (2) Acute on chronic heart failure with preserved ejection fraction (HFpEF): (3) Status post biventricular pacemaker: (4) Elevated troponin: (5) Renal failure (ARF), acute on chronic: (6) Permanent atrial fibrillation: (7) MCFP current use of 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: (8) HTN (hypertension): (9) HLD (hyperlipidemia): (10) Fall: (11) Laceration of scalp: Plan Assessment: 83 year old male presenting after sustaining a mechanical fall in the shower. Worseing renal function and evidence of volume overload with an "abnormal" device interrogation requesting for cardiology to evaluate. Plan: 1. Ventricular bigeminy: 2. Acute on chronic heart failure with preserved EF 3. s/p BiV dual ICD/Pacemaker 4. Elevated troponin 5. Renal failure -Increased PVC, couplets, triplets and bigeminy which would explain the inability for the patients device to appropriately capture. -Electrolytes stable, worsening renal function. -unable to assess patient's diet due to cognitive/memory deficit; however, he resides at [facility]. -Currently on Metoprolol succinate 12.5mg QD, will increase to 25mg QD -Continue to monitor on telemetry. Will reassess response to increased beta easton overnight and will have device rep check on device tomorrow. -Device: Medtronic Viva Quad [id number], biventricular -Patient demonstrates modest volume overload. Received IV Lasix 60mg x1 dose today. -Current home regimen (set fourth by Nephrology) has been Torsemide 80mg // and Friday, and 60mg / and Friday. -Will hold off on starting a maintenance diuretic dose and reassess renal function in the AM given dose already received today and worsening renal function. -Recommend that Nephrology be involved in this patient's care as they have been helping us to manage his fluid status in the setting of worsening renal function. would appreciate their input. -Daily weights, and strict I&O -Close monitoring of renal function as well as electrolytes with goal serum K > 4.0 and serum Mag> 2.0. -Known chronic elevated troponin in the absence of acute EKG changes, and no symptoms. -Trend troponin to peak. -Obtain echocardiogram to assess overall structure and function 6. Permanent A-fib 7. MCFP anticoagulation use -No changes. -patient carries a history of A-fib, prior TIA and prior DVT. High risk for thrombo-embolic event; however, need to weigh risk vs benefit of use of anticoagulation. Current home regimen is Eliquis 5mg PO BID. -[id number] score 7. 8. HTN -Well controlled. Continue Metoprolol succinate (increased dose to 25mg QD), diuretics on hold 9. HLD -Continue Crestor 10. Fall 11. Laceration of the scalp -HEAD CT negative -Continued management per primary team. 05/19/2024: -Resting comfortably in bed at time of exam, offers no complaints. -Review of telemetry continues to demonstrate frequent Bigeminy pattern, although asymptomatic and hemodynamically stable. -Continue Toprol xl at 25mg PO today, may consider further titration if needed -[employer] rep to check device today and determine if there are any setting changes for optimization. -Continues with modest volume overload, although showing some improvement. No daily weight for comparison. -1080 fluid deficit reported at this time. -No improvement in renal function. Awaiting and will appreciate Nephrology consultation and recommendations for fluid management -Accurate and strict I&Os needed as well as daily weights. Maintain serum K> 4.0 and Serum Mag of 2.0. -Oral anticoagulation remains on hold by primary team. Family needs to consider risk vs benefit for restarting Eliquis or not given his increased falls risk vs medical comorbidities. CHADS2-VASC score 7. Case has been discussed with Dr. Jean. Further recommendations regarding plan of care as per his assessment. I spent a total of 30 minutes on the date of service in preparation, delivery, documentation of the care provided to the patient excluding any time spent in the performance of separately billed services. EMEKA [facility] Cardiology [facility] Admission and Anticipated Discharge Date Admission Date: May 18, 2024 Supervising Physician Co-Signing Physician Notes I have personally performed a history and physical examination on the patient. I have reviewed the advance practitioner's documentation, and I agree with, and take responsibility for the plan of care. 83-year-old male with acute heart failure with preserved ejection fraction and CKD stage IV. Continue diuresis. Appreciate nephrology input. Patient is not a dialysis candidate. Device interrogation reveals frequent ventricular ectopy with reduced biventricular pacing, however, normally function. Mildly elevated lead threshold to be reassessed today. Continue other cardiac medications including clopidogrel, statin, and beta-easton therapy. I spent a total of 25 minutes on the date of service in preparation, delivery, and documentation of the care provided to this patient, excluding any time spent in the performance of separately billed services. Subjective 05/19/2024: Patient seen and examined in follow up today. Feeling ok. Woke from a deep sleep, but offers no complaints. Denies chest pain, pressure, palpitations, no shortness of breath. Labs, vitals, diagnostics, telemetry and documentation reviewed. Telemetry reviewed showing V-paced rhythm with frequent bigeminy episodes. Rates controled 80-90's. Nephrology has been consulted. Renal function remains unchanged. (Cr. 3.19). No weight available in data review. Current -1080cc fluid output Review of Systems Review of Systems: All systems reviewed & are unremarkable except as noted in HPI & below Physical Exam Constitutional: well developed, well nourished and + edematous (+2 BLE, noted improvement from yesterday); no acute distress and not ill appearing Neck: normal visual inspection and trachea midline Respiratory: normal respiratory effort; no respiratory distress, no labored breathing, no retractions and no cough Auscultation: lungs clear to auscultation bilaterally; no crackles, no rales, no rhonchi and no wheezes Cardiovascular: Rate/Rhythm: regular rate and regular rhythm (frequent PVC, couplets, triplets and bigeminy,) Heart Sounds: normal S1, normal S2 and + murmur (+II/ systolic ) Vessels: dorsalis pedis pulses present; no JVD Extremities: + edema (+2, noted improvement from yesterday) Skin: + ecchymosis (multiple areas of ecchymos is arms, shoulder, right lower leg) and + erythema (left lower extremity) Trauma: + abrasion (right posterior forearm) and + laceration (scalp, sutured in the ED) Psychiatric: Orientation: alert, oriented to person, oriented to place (oriented to place, person and somewhat to event) and cooperative; + not oriented to time Results & Data Vital Signs (Past 12 Hours) Vital Signs Temp Pulse Resp BP Pulse Ox O2 Del Method 05/19/24 07:32 36.3 C L 76 21 131/73 94 Room Air 05/19/24 02:28 36.7 C 78 16 127/75 95 Room Air 05/18/24 22:36 36.6 C 83 18 139/74 96 Room Air Laboratory Results Cardiac Enzymes 05/18/24 Range/Units 12:16 Troponin I High Sens 115.4 H* (0-20) pg/ml CBC 05/19/24 Range/Units 05:14 WBC 4.87 (4.8-10.8) K/ul RBC 2.53 L (4.70-6.10) M/uL Hgb 9.3 L (14.0-18.0) g/dl Hct 27.2 L (42.0-52.0) % Plt Count 94 L (130-400) K/uL Comprehensive Metabolic Panel 05/19/24 Range/Units 05:14 Sodium 141 (136-145) mmol/L Potassium 4.3 (3.5-5.1) mmol/L Chloride 109 H (98-107) mmol/L Carbon Dioxide 24 (21-32) mmol/L BUN 56 H (6-23) mg/dl Creatinine 3.19 H (0.6-1.4) mg/dl Glucose 112 H (70-99(Fasting)) mg/dl Calcium 9.6 (8.6-10.3) mg/dl Intake and Output 05/18/24 05/19/24 05/19/24 22:59 06:59 14:59 Intake Total 120 / 270 150 / 270 Output Total 400 / 1350 350 / 1350 Balance -280 / -1080 -200 / -1080 Intake: Oral 120 / 270 150 / 270 Output: Urine Amount (Catheter) 400 / 1350 350 / 1350 Soriano/Indwelling 400 / 1350 350 / 1350 Other: Weight 101 kg 100.8 kg Weight Measurement Method Built in Bedscale Built in Bedscale Medications Administered Echocardiogram 05/18/2024 Apical septum and apical inferior wall are thinned and dyskinetic LVEF 45-50% Moderate concentric LVH Left atrium moderately dilated right atrium severely dilated. Moderate aortic sclerosis without stenosis moderate Mitral annular calcification moderate to severe MR severe TR PASP 50-60% (10) Fall Encounter type: initial encounter Qualified Code(s): W19.XXXA - Unspecified fall, initial encounter (11) Laceration of scalp Encounter type: initial encounter Qualified Code(s): S01.01XA - Laceration without foreign body of scalp, initial encounter
--- NOTE | 2024-05-19 09:25 | Hospitalist Progress Note ---
Date of Service May 19, 2024 Assessment & Plan (1) Laceration of scalp: (2) Fall: (3) Acute on chronic heart failure with preserved ejection fraction (HFpEF): (4) Elevated troponin: (5) Depression: (6) History of CVA (cerebrovascular accident): (7) CKD (chronic kidney disease): (8) CAD (coronary artery disease): (9) Permanent atrial fibrillation: (10) intermediate current use of 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: (11) HTN (hypertension): (12) HLD (hyperlipidemia): Plan: This is an 83yo M with PMH CAD, history of dilated ischemic cardiomyopathy with now improved and preserved EF, AICD implantation, mitral insufficiency, permanent atrial fibrillation anticoagulated on Eliquis, history of CVA, history of recurrent falls and nocturnal hypoxia presented to ED from [facility] after unwitnessed fall. Fall Scalp laceration Unwitnessed fall at [facility], scalp laceration stapled Initial CT head with no hemorrhage, mass effect or evidence of acute territorial ischemia by CT criteria Cervical spine CT with no evidence of fracture or subluxation Repeat CT head this AM, - no change- will resume plavix (will need to discuss further about resuming home Eliquis given hx of falls) H/o recurrent falls at personal [facility] PT/OT evaluation, fall precautions May need to consider discussion of risk vs benefit continued anticoagulation given issues with recurrent falls Permanent atrial fibrillation on anticoagulation H/o AICD, ? abnormal pacer interrogation Pacer reviewed per cards - increased PVC, couplets, triplets and bigeminy which would explain the inability for the patients device to appropriately capture Per cards- Toprol increased to 25mg daily, monitor on telemetry. Will reassess response to increased beta easton overnight and will have device rep check on device Acute on chronic HFpEF Elevated troponin Appears volume overloaded on exam EKG with ventricular paced rhythm Given 60mg IV lasix in ED CXR with cardiomegaly with pulmonary vascular congestion. Small right pleural effusion favoring atelectasis. Findings similar to prior chest CT Current diuretic regimen per Nephrology -Torsemide 80mg M// and Friday, and 60mg / and Friday Nephrology consulted Tacrolimus level AM Daily weights, I&Os, repeat 2D echo, low sodium diet Replete electrolytes, keep K > 4.0 and Mag> 2.0. Troponin elevation History of ischemic cardiomyopathy, preserved EF on most recent echo from 10/23 HS troponin 126 -> downtrending to 115 EKG with paced rhythm and no acute EKG changes, known CKD 2D echo obtained -LV normal in size. Apical septum and apical inferior wall are send and dyskinetic. LVEF 45 to 50%. Moderate concentric LVH. LA is moderately dilated. RA is severely dilated. Aortic valve sclerosis moderate, without significant aortic valvular stenosis. There is moderate mitral annular calcification. Mitral valve leaflets are calcified with restricted posterior leaflet mobility. There is moderate to severe mitral regurg. Severe tricuspid regurg. RV systolic pressure is elevated at 50 to 60 mmHg. 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 May not resume d/t falls, as above. Continue increased dose of Toprol as above HTN (hypertension) Continue Toprol Chronic anemia Chronic thrombocytopenia H&H, platelets about baseline Monitor with daily CBC Noctural hypoxia Oxygen HS Right thyroid lesion on C-spine CT USG thyroid as an outpatient DVT Prophylaxis: holding Eliquis for now Code status: DNR/DNI per patient PCP: Dr. Nicolle Claire Dispo: PCU Admission and Anticipated Discharge Date Admission Date: May 18, 2024 Subjective Pt seen in follow up of fall Pt has hx of dementia, mixed systolic and diastolic heart failure with severe mitral tricuspid insufficiency, severe renal insufficiency with underlying membranous nephropathy on immunosuppressive therapy Seen by cardiology - Device interrogation reveals frequent ventricular ectopy with reduced biventricular pacing moderate volume overload there with worsening renal insufficiency on exam Nephrology also consulted Patient is currently laying in bed in NAD, not able to provide much history Currently has no concerns or discomfort. Denies any fever, chills, chest pain, shortness of breath or abd. pain Review of Systems Review of Systems: All systems reviewed & are unremarkable except as noted in Subjective Physical Exam Physical Exam: GENERAL: WN/WD elderly chronically ill appearing M in NAD HEENT: No pallor, no icterus. PEERL NECK: No JVD, no neck masses. HEART: S1 and S2 heard. Regular rate and rhythm. RESPIRATORY: No accessory muscle use. No wheezing, bb crackles. ABDOMEN: Soft, bowel sounds present, nontender, no distention. NEURO: Awake, No facial droop. Speech is clear. Obeys simple commands. Moves extremities. EXTREMITIES: 2+ ble edema, no erythema seen. Results & Data Results & Data Vital Signs (Past 12 Hours) Vital Signs Temp Pulse Resp BP Pulse Ox O2 Del Method 05/19/24 07:32 36.3 C L 76 21 131/73 94 Room Air 05/19/24 02:28 36.7 C 78 16 127/75 95 Room Air 05/18/24 22:36 36.6 C 83 18 139/74 96 Room Air Laboratory Results 05/19/24 05/18/24 05/18/24 Range/Units 05:14 12:16 10:18 WBC 4.87 4.97 (4.8-10.8) K/ul RBC 2.53 L 2.77 L (4.70-6.10) M/uL Hgb 9.3 L 9.8 L (14.0-18.0) g/dl Hct 27.2 L 29.2 L (42.0-52.0) % MCV 107.5 H 105.4 H (80.0-100.0) fL MCH 36.8 H 35.4 H (25.0-34.0) pg MCHC 34.2 33.6 (32.0-36.0) g/dL RDW Std Deviation 54.0 H 52.6 H (36.4-46.3) fL RDW Coeff of Tucker 13.6 13.6 (11.5-14.5) % Plt Count 94 L 115 L (130-400) K/uL MPV 10.7 10.9 (9.4-12.4) fL Immature Gran % (Auto) 1.2 % Neut % (Auto) 68.6 % Lymph % (Auto) 12.7 % [place] % (Auto) 13.7 % Eos % (Auto) 3.0 % Baso % (Auto) 0.8 % Neut # (Auto) 3.41 (1.40-6.50) K/uL Lymph # (Auto) 0.63 L (1.20-3.40) K/uL [place] # (Auto) 0.68 H (0.11-0.59) K/uL Eos # (Auto) 0.15 (0.00-0.50) K/uL Baso # (Auto) 0.04 (0.00-0.20) K/uL Immature Gran # (Auto) 0.06 (0.01-0.20) K/uL PT 12.3 H (9.0-12.0) Seconds INR 1.1 (0.9-1.1) Sodium 141 139 (136-145) mmol/L Potassium 4.3 4.2 (3.5-5.1) mmol/L Chloride 109 H 109 H (98-107) mmol/L Carbon Dioxide 24 22 (21-32) mmol/L Anion Gap 8 8 (3-11) BUN 56 H 54 H (6-23) mg/dl Creatinine 3.19 H 3.20 H (0.6-1.4) mg/dl Est Cr Clr Drug Dosing 21.2 21.1 ml/min Est GFR ( Amer) 19.6 19.5 ml/min Est GFR (Non-Af Amer) 16.9 16.9 ml/min BUN/Creatinine Ratio 17.6 16.9 (10-20) Glucose 112 H 92 (70-99(Fasting)) mg/dl Calcium 9.6 9.7 (8.6-10.3) mg/dl Magnesium 2.1 (1.7-2.4) mg/dl Total Bilirubin 0.9 (0.2-1.0) mg/dl AST 33 (13-39) U/L ALT 14 (7-52) U/L Alkaline Phosphatase 81 (34-104) U/L Troponin I High Sens 115.4 H* 126.0 H* (0-20) pg/ml Total Protein 5.9 L (6.0-8.3) gm/dl Albumin 3.3 L (3.4-5.0) gm/dl Globulin 2.6 (2.5-4.0) gm/dl Albumin/Globulin Ratio 1.3 (0.9-2) Lipase 11 (11-82) U/L Medications Administered Current Inpatient Medications Acetaminophen (Acetaminophen 325 Mg Tab) 650 mg PO Q4H PRN PRN Reason: Fever Or Pain Stop: 06/17/24 15:36 Clopidogrel Bisulfate (Clopidogrel Bisulfate 75 Mg Tab) 75 mg PO DAILY [facility] Stop: 06/18/24 08:59 Docusate Sodium (Docusate Sodium 100 Mg Cap) 100 mg PO DAILY [facility] Stop: 06/18/24 08:59 Last Admin: 05/19/24 08:25 Dose: Not Given Fluoxetine HCl (Fluoxetine Hcl 10 Mg Cap) 10 mg PO DAILY [facility] Stop: 06/18/24 08:59 Last Admin: 05/19/24 08:26 Dose: 10 mg Fluticasone Propionate (Fluticasone Propionate Na Spr 16 Gm Btl) 1 sprays MARIS BID [facility] Stop: 06/17/24 20:59 Last Admin: 05/19/24 08:24 Dose: 1 sprays Guaifenesin (Guaifenesin 200 Mg Tab) 400 mg PO Q6H PRN PRN Reason: congestion/cough Stop: 06/17/24 15:49 Last Admin: 05/19/24 08:26 Dose: 400 mg Loratadine (Loratadine 10 Mg Tab) 10 mg PO DAILY [facility] Stop: 06/18/24 08:59 Last Admin: 05/19/24 08:26 Dose: 10 mg Melatonin (Melatonin 3 Mg Tab) 3 mg PO HS PRN PRN Reason: Insomnia Stop: 06/17/24 15:36 Metoprolol Succinate (Metoprolol Succ 25mg Ext Rel Tab) 25 mg PO QAM [facility] Stop: 06/18/24 08:59 Ondansetron HCl (Ondansetron Inj 2 Mg/Ml 2 Ml Vial) 4 mg IV Q6H PRN PRN Reason: Nausea Stop: 06/17/24 15:36 Polyethylene Glycol (Polyethylene (Miralax) 17 Gm Pack) 17 gm PO DAILY PRN PRN Reason: Constipation Stop: 06/17/24 15:36 Potassium Chloride (Potassium Chloride Crtab 20 Meq Tabcr) 20 meq PO TID [facility] Stop: 06/17/24 20:59 Last Admin: 05/19/24 08:24 Dose: 20 meq Rosuvastatin Calcium (Rosuvastatin Calcium 10 Mg Tab) 10 mg PO HS [facility] Stop: 06/17/24 20:59 Last Admin: 05/18/24 20:41 Dose: 10 mg Tacrolimus (Tacrolimus 1 Mg Cap) 2 mg PO BID [facility] Stop: 06/17/24 20:59 Last Admin: 05/19/24 08:25 Dose: 2 mg Trimethoprim/Sulfamethoxazole (Sulfamethoxazole/Trimethoprim Ds 800/160mg Tab) 1 tab PO MOWEFR [facility] Stop: 06/18/24 08:59 Last Admin: 05/19/24 08:25 Dose: 1 tab Vitamin D (Cholecalciferol 25 Mcg (1000 Units) Tab) 100 mcg PO DAILY [facility] Stop: 06/18/24 08:59 Last Admin: 05/19/24 08:27 Dose: 100 mcg (1) Laceration of scalp Encounter type: initial encounter Qualified Code(s): S01.01XA - Laceration without foreign body of scalp, initial encounter (2) Fall Encounter type: initial encounter Qualified Code(s): W19.XXXA - Unspecified fall, initial encounter
--- NOTE | 2024-05-19 09:56 | Nephrology Consultation ---
Date of Consultation May 19, 2024 Assessment & Plan (1) Primary membranous nephropathy with nephrotic syndrome: biopsy proven MN; on tacrolimus tx. chronic challenges w/ volume mgt given NS and HF hx. -continue tacrolimus > plan a trough for tomorrow > will need to have specially timed labs -continue bactrim -continue potassium supplements -resume torsemide at 60 mg daily -needs daily STANDING weight, no bedweight pls -continue 1.8L FR and <2 gm daily Na diet Care coordinated w/ hospitalist re diuretic dosing, lab timing, continuation of immunosuppression, volume monitoring measures > we are in agreement. (2) CKD (chronic kidney disease) stage 4, GFR 15-29 ml/min: with worsened function on presentation but not JOHN so far. baseline creatinine high 2s but quite labile. presented 05/18 w/ creatinine 3.2, unchanged this am. not quite meeting JOHN criteria given his OP lability but nearing this. --not a dialysis candidate should the need arise per d/w his son Luis rose POA on multiple occasions as an OP -defer to cardiology to optimize heart rhythms/cardiac function which may help his renal function (3) Frequent falls: falls about every 4-6 wks at his facility. some challenges w/ low BP recently prior to admission but not currently. with hx of DVT last fall. -defer to primary service for need for plavix, ? eliquis <> ? if this latter med was started recently History of Present Illness Reason for Consultation: volume OL, CKD 3-4 Requesting Physician: Dr Pineda Attending Physician: Parish Monk MD History of Present Illness 83 y/o M whom I'm asked to see for volume overload in the setting of CKD3-4 was admitted yesterday midday for acute on chronic HFpEF after an unwitnessed fall in the shower w/ scalp laceration requiring dieter. PMH includes CKD 4 baseline creatinine labile but generally high 2's, membranous nephropathy on tacrolimus after one rituxan dose caused unacceptable troponin elevation (>19K), monoclonal gammopathy of uncertain significance (and with no renal involvement on fall 2022 renal biopsy; bone marrow aspirate was suboptimal specimen; pt monitored by [facility] hematology) w/ chronic anemia and thrombocytopenia, CAD s/p PCI, hx /now improved dilated ischemic cardiomyopathy s/p biV pacer/defibrillator, permanent a fib, frequent falls (about every 4-6 wks), dementia, stroke, 4.8 cm infrarenal abdominal aortic aneurysm last documented 03/2024; LLE DVT 08/2023, nocturnal hypoxemia. Admitted here 03/12- 03/15 for parainfluenza after presenting w/ increased confusion and stage 1 JOHN. At follow up OV late last month w/ me he was not on eliquis but was on plavix. On admission there was concern for pacer/defibrillator capturing poorly d/t increased PVC, triplets/bigeminy/couplets. Troponin elevation noted as well. TTE w/ EF 45-50%, thinned/dyskinetic apical septum and inferior wall, severe R atrial dilatation, moderate L atrial dilatation, moderate to severe mitral rgg with calcified leaflets and some restricted mobility, severe TR, RV systolic pressure elevation to 50-60 mm Hg. Cardiology is following. The patient has had 60 mg IV lasix x 1 yesterday. No current standing diuretics. His metoprolol was increased from 12.5 to 25 mg daily in an attempt to improve device capture. His OP torsemide regimen (80 mg mwfsat/60 mg t/r/sun), eliquis, and plavix were held but FK and bactrim and fairly aggressive K supplements at 20 mEq tid were continued. His presenting creatinine is 3.2, unchanged this am. ROS is somewhat unreliable given his dementia. He tells me he feels well, is ready to ambulate. does c/o cough. no n/v/d. no new/worrisome voiding concerns. feels edema stable. no f/c. Allergies Allergy/AdvReac Type Severity Reaction Status Date / Time No Known Allergies Allergy Unverified 10/06/23 15:42 Home Medications Medication Instructions Recorded Confirmed Type cholecalciferol (vitamin D3) 50 4,000 unit PO DAILY 08/09/22 05/18/24 History mcg (2,000 unit) tablet (Vitamin D3) clopidogrel 75 mg tablet 75 mg PO DAILY 08/09/22 05/18/24 History fluoxetine 10 mg capsule 10 mg PO DAILY 08/09/22 05/18/24 History fluticasone propionate 50 1 spray intranasal BID 08/09/22 05/18/24 History mcg/actuation nasal spray,suspension ketoconazole 2 % topical cream 1 applic topical BID PRN flares 08/09/22 05/18/24 History nitroglycerin 0.4 mg sublingual 0.4 mg sublingual UD PRN Chest Pain 08/09/22 05/18/24 History tablet rosuvastatin 10 mg tablet 10 mg PO HS 08/09/22 05/18/24 History acetaminophen 500 mg tablet 1,000 mg PO BID 09/23/23 05/18/24 History (Tylenol Extra Strength) docusate sodium 100 mg capsule 100 mg PO DAILY 09/23/23 05/18/24 History (Colace) loratadine 10 mg tablet 10 mg PO DAILY 09/23/23 05/18/24 History acetaminophen 325 mg tablet 650 mg PO Q4H PRN Fever Or Pain 10/06/23 05/18/24 History guaifenesin 400 mg tablet 400 mg PO Q6H PRN congestion/cough 10/06/23 05/18/24 History ketoconazole 2 % shampoo 1 ea topical 3XWK 10/06/23 05/18/24 History melatonin 3 mg tablet 3 mg PO HS PRN Insomnia 10/06/23 05/18/24 History sulfamethoxazole 800 1 tab PO MOWEFR 10/06/23 05/18/24 History mg-trimethoprim 160 mg tablet potassium chloride 20 mEq 20 meq PO TID 03/12/24 05/18/24 History tablet,extended release(part/cryst) tacrolimus 1 mg capsule, 2 mg PO BID 03/12/24 05/18/24 History immediate-release torsemide 20 mg tablet 40 mg PO DAILY PRN weight gain 03/12/24 05/18/24 History >3lbs torsemide 20 mg tablet See Rx Instructions .Route .COMPLEX 03/12/24 05/18/24 History apixaban 5 mg tablet (Eliquis) 5 mg PO BID 05/18/24 05/18/24 History metoprolol succinate 25 mg 12.5 mg PO HS 05/18/24 05/18/24 History tablet,extended release 24 hr Patient History Medical History (Updated 05/19/24 @ 14:31 by Gisele Daugherty MD, PhD) Frequent falls Mitral insufficiency TIA (transient ischemic attack) Ischemic dilated cardiomyopathy due to coronary artery disease AAA (abdominal aortic aneurysm) without rupture infrarenal 5.8 cm 03/2024 CKD (chronic kidney disease) stage 4, GFR 15-29 ml/min MGUS (monoclonal gammopathy of unknown significance) DVT (deep venous thrombosis) Dementia Primary membranous nephropathy with nephrotic syndrome Permanent atrial fibrillation CAD (coronary artery disease) Nocturnal hypoxemia Hematuria Generalized weakness COVID-19 Surgical History AICD (automatic cardioverter/defibrillator) present Status post biventricular pacemaker and defib Family History Other Family history non-contributory Social History Smoking Status: Never smoker Second Hand Exposure: No; Do You Dip or Chew Tobacco: No; Hx Alcohol Use: No Hx Substance Use: No Preferred Language: Sinhala Communication Ability: Impaired Centrifugal Chiller Technician Required: No Beliefs That Will Affect Care: None Current Living Situation: Alone Current Living Situation Comment: [facility] Feels Safe at Home: Yes Safety Concerns: Feels Safe At This Time Assistive Devices: Cane and Walker Review of Systems 2 Review of Systems: All systems reviewed & are unremarkable except as noted in HPI & below Physical Exam 2 Constitutional: well developed (sitting in bed on RA), well nourished and cooperative; no acute distress Eyes: EOM intact bilaterally ENMT: Ears: no external ear abnormality Nose: no external nose abnormality Mouth: + dry oral mucous membranes Neck: no nuchal rigidity Respiratory: normal respiratory effort Auscultation: + diminished lung sounds (throughout but gurwinder R base) Cardiovascular: Rate/Rhythm: regular rate and regular rhythm Extremities: + edema (2-3+ pedal, 1-2+ ankle) Gastrointestinal (Abdomen): Inspection/Auscultation: normal bowel sounds P ercussion/Palpation: abdomen soft; abdomen nontender Musculoskeletal: Extremities: strength 5/5 throughout Skin: no rashes, warm and dry Neurologic: shaw, fluent speech, no tremor Results & Data Vital Signs (Past 12 Hours) Vital Signs Temp Pulse Resp BP Pulse Ox O2 Del Method 05/19/24 07:32 36.3 C L 76 21 131/73 94 Room Air 05/19/24 02:28 36.7 C 78 16 127/75 95 Room Air 05/18/24 22:36 36.6 C 83 18 139/74 96 Room Air Laboratory Results 05/19/24 05:14 05/19/24 05:14 Diagnostic Findings TTE reviewed cxr 1. Cardiomegaly with pulmonary vascular congestion. 2. Small right pleural effusion with right greater than left bibasilar opacities favoring atelectasis. Findings are similar to the prior chest CT.
[2024-05-19] MEDS: METOPROLOL SUCC 25MG EXT REL TAB PO SCH (10:13)
[2024-05-19] MEDS: TORSEMIDE 20 MG TAB PO SCH (15:15)
--- NOTE | 2024-05-19 16:12 | Electrocardiogram Report ---
Test Reason : Blood Pressure : / mmHG Vent. Rate : 082 BPM Atrial Rate : 082 BPM P-R Int : 000 ms QRS Dur : 118 ms QT Int : 442 ms P-R-T Axes : 208 -01 219 degrees QTc Int : 516 ms Ventricular-paced rhythm Biventricular pacemaker detected Abnormal ECG When compared with ECG of 18-MAY-2024 10:11, Vent. rate has decreased BY 5 BPM Confirmed by Clinton Jaffe ([id number]) on 05/19/2024 4:11:57 PM Referred By: Isabelle Pineda Confirmed By:Clinton Jaffe
[2024-05-20] MEDS: OLANZapine 10 MG/2.1 ML SDV IM PRN (01:01)
[2024-05-20 06:33] LABS: Appearance Urine Cloudy (Clear); Bacteria Urine Automated None Seen (None Seen); Bilirubin Urine Negative (Negative); Blood Urine 3+ (Negative); Color Urine Yellow; Glucose Urine UA Negative (Negative); Ketones Urine Negative (Negative); Leukocyte Esterase Urine 3+ (Negative); Nitrite Urine Negative (Negative); Protein Urine 4+ (Negative); RBC Urine Automated >20 /hpf (0-2); Specific Gravity Urine 1.015 (1.000-1.030); Urobilinogen Urine Negative (Negative); WBC Urine Automated >50 /hpf (0-5); pH Urine 6.5 (4.5-7.5)
--- NOTE | 2024-05-20 08:37 | Cardiology Progress Note ---
Date of Service May 20, 2024 Assessment & Plan (1) Ventricular bigeminy: (2) Acute on chronic heart failure with preserved ejection fraction (HFpEF): (3) Status post biventricular pacemaker: (4) Elevated troponin: (5) Renal failure (ARF), acute on chronic: (6) Permanent atrial fibrillation: (7) [facility] current use of 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: (8) HTN (hypertension): (9) HLD (hyperlipidemia): (10) Fall: (11) Laceration of scalp: Plan Assessment: 83 year old male presenting after sustaining a mechanical fall in the shower. Worseing renal function and evidence of volume overload with an "abnormal" device interrogation requesting for cardiology to evaluate. Plan: 1. Ventricular bigeminy: 2. Acute on chronic heart failure with preserved EF 3. s/p BiV dual ICD/Pacemaker 4. Elevated troponin 5. Renal failure -Increased PVC, couplets, triplets and bigeminy which would explain the inability for the patients device to appropriately capture. -Electrolytes stable, worsening renal function. -unable to assess patient's diet due to cognitive/memory deficit; however, he resides at [facility]. -Currently on Metoprolol succinate 12.5mg QD, will increase to 25mg QD -Continue to monitor on telemetry. Will reassess response to increased beta easton overnight and will have device rep check on device tomorrow. -Device: Medtronic Viva Quad [id number], biventricular -Patient demonstrates modest volume overload. Received IV Lasix 60mg x1 dose today. -Current home regimen (set fourth by Nephrology) has been Torsemide 80mg // and Friday, and 60mg / and Friday. -Will hold off on starting a maintenance diuretic dose and reassess renal function in the AM given dose already received today and worsening renal function. -Recommend that Nephrology be involved in this patient's care as they have been helping us to manage his fluid status in the setting of worsening renal function. would appreciate their input. -Daily weights, and strict I&O -Close monitoring of renal function as well as electrolytes with goal serum K > 4.0 and serum Mag> 2.0. -Known chronic elevated troponin in the absence of acute EKG changes, and no symptoms. -Trend troponin to peak. -Obtain echocardiogram to assess overall structure and function 6. Permanent A-fib 7. [facility] anticoagulation use -No changes. -patient carries a history of A-fib, prior TIA and prior DVT. High risk for thrombo-embolic event; however, need to weigh risk vs benefit of use of anticoagulation. Current home regimen is Eliquis 5mg PO BID. -[id number] score 7. 8. HTN -Well controlled. Continue Metoprolol succinate (increased dose to 25mg QD), diuretics on hold 9. HLD -Continue Crestor 10. Fall 11. Laceration of the scalp -HEAD CT negative -Continued management per primary team. 05/19/2024: -Resting comfortably in bed at time of exam, offers no complaints. -Review of telemetry continues to demonstrate frequent Bigeminy pattern, although asymptomatic and hemodynamically stable. -Continue Toprol xl at 25mg PO today, may consider further titration if needed -[employer] rep to check device today and determine if there are any setting changes for optimization. -Continues with modest volume overload, although showing some improvement. No daily weight for comparison. -1080 fluid deficit reported at this time. -No improvement in renal function. Awaiting and will appreciate Nephrology consultation and recommendations for fluid management -Accurate and strict I&Os needed as well as daily weights. Maintain serum K> 4.0 and Serum Mag of 2.0. -Oral anticoagulation remains on hold by primary team. Family needs to consider risk vs benefit for restarting Eliquis or not given his increased falls risk vs medical comorbidities. CHADS2-VASC score 7. 05/20/2024: -Patient is sleeping with 1:1 sitter present in the room. Awakens to verbal stimuli, but does not answer most questions. -Telemetry reviewed, continues to show episodes of Bigeminy. Increase Toprol xl to 25mg BID today -Continues with modest volume overload, renal function with some improvement. Nephrology now following and has recommended to start torsemide 60 mg PO in AM with close monitoring of I&Os, Daily weights and labs. -Accurate and strict I&Os needed as well as daily weights. Maintain serum K> 4.0 and Serum Mag of 2.0. -Oral anticoagulation remains on hold by primary team. Family needs to consider risk vs benefit for restarting Eliquis or not given his increased falls risk vs medical comorbidities. CHADS2-VASC score 7. Case has been discussed with Dr. Jean. Further recommendations regarding plan of care as per his assessment. I spent a total of 30 minutes on the date of service in preparation, delivery, documentation of the care provided to the patient excluding any time spent in the performance of separately billed services. [facility]ME[facility] Admission and Anticipated Discharge Date Admission Date: May 18, 2024 Supervising Physician Co-Signing Physician Notes I have personally performed a history and physical examination on the patient. I have reviewed the advance practitioner's documentation, and I agree with, and take responsibility for the plan of care. 83-year-old male with acute heart failure with preserved ejection fraction and CKD stage IV. Creatinine continues to trend downward. Fluid balance -1100 cc. Transition to torsemide 60 mg daily. Appreciate nephrology input. Patient is not a dialysis candidate. Titrate Toprol to 25 mg twice daily. Continue other cardiac medications including clopidogrel, and statin therapy. I spent a total of 25 minutes on the date of service in preparation, delivery, and documentation of the care provided to this patient, excluding any time spent in the performance of separately billed services. Subjective 05/20/2024: Patient seen and examined in follow up today. Patient is lethargic. Awakes to verbal stimuli, but dozes back off quickly. There is a 1:1 sitter in the room that said patient was very rowdy over night. Labs, vitals, diagnostics, telemetry and documentation reviewed. Telemetry reviewed showing Paced with PVC's 70-80's. Review of Systems Review of Systems: All systems reviewed & are unremarkable except as noted in HPI & below Physical Exam Constitutional: well developed, well nourished and + edematous (+2 BLE, noted improvement from yesterday); no acute distress and not ill appearing Neck: normal visual inspection and trachea midline Respiratory: normal respiratory effort; no respiratory distress, no labored breathing, no retractions and no cough Auscultation: lungs clear to auscultation bilaterally; no crackles, no rales, no rhonchi and no wheezes Cardiovascular: Rate/Rhythm: regular rate and regular rhythm (frequent PVC, couplets, triplets and bigeminy,) Heart Sounds: normal S1, normal S2 and + murmur (+II/ systolic ) Vessels: dorsalis pedis pulses present; no JVD Extremities: + edema (+2, noted improvement from yesterday) Skin: + ecchymosis (multiple areas of ecchymos is arms, shoulder, right lower leg) Trauma: + abrasion (right posterior forearm) and + laceration (scalp, sutured in the ED) Psychiatric: Orientation: alert (drowsy, wakes to verbal stimuli, does not answer questions) Results & Data Vital Signs (Past 12 Hours) Vital Signs Temp Pulse Pulse Pulse Resp BP Pulse Ox 05/20/24 07:03 36.4 C L 89 17 142/80 H 95 05/20/24 07:00 82 05/20/24 05:11 36.6 C 80 16 135/82 95 05/19/24 23:21 36.9 C 80 16 120/93 94 05/19/24 22:00 88 O2 Del Method 05/20/24 07:03 Room Air 05/20/24 07:00 05/20/24 05:11 Room Air 05/19/24 23:21 Room Air 05/19/24 22:00 Laboratory Results CBC 05/20/24 Range/Units 08:24 WBC 5.77 (4.8-10.8) K/ul RBC 2.85 L (4.70-6.10) M/uL Hgb 10.2 L (14.0-18.0) g/dl Hct 30.4 L (42.0-52.0) % Plt Count 94 L (130-400) K/uL Comprehensive Metabolic Panel 05/20/24 Range/Units 08:24 Sodium 142 (136-145) mmol/L Potassium 4.1 (3.5-5.1) mmol/L Chloride 111 H (98-107) mmol/L Carbon Dioxide 26 (21-32) mmol/L BUN 53 H (6-23) mg/dl Creatinine 2.77 H D (0.6-1.4) mg/dl Glucose 113 H (70-99(Fasting)) mg/dl Calcium 9.7 (8.6-10.3) mg/dl Intake and Output 05/19/24 05/20/24 05/20/24 22:59 06:59 14:59 Output Total 650 / 1601 550 / 1601 Balance -650 / -1101 -550 / -1101 Output: Urine Amount (Catheter) 650 / 1600 550 / 1600 Soriano/Indwelling 650 / 1600 550 / 1600 (10) Fall Encounter type: initial encounter Qualified Code(s): W19.XXXA - Unspecified fall, initial encounter (11) Laceration of scalp Encounter type: initial encounter Qualified Code(s): S01.01XA - Laceration without foreign body of scalp, initial encounter
[2024-05-20 08:38] LABS: Hematocrit (blood only) 30.4 % (42.0-52.0); Hemoglobin 10.2 g/dl (14.0-18.0); Mean Corpuscular Hemoglobin 35.8 pg (25.0-34.0); Mean Corpuscular Hgb Conc 33.6 g/dL (32.0-36.0); Mean Corpuscular Volume 106.7 fL (80.0-100.0); Mean Platelet Volume 10.9 fL (9.4-12.4); Platelet Count 94 K/uL (130-400); RDW Coefficient of Variation 13.5 % (11.5-14.5); RDW Standard Deviation 52.8 fL (36.4-46.3); Red Blood Count 2.85 M/uL (4.70-6.10); White Blood Count 5.77 K/ul (4.8-10.8)
[2024-05-20 08:54] LABS: BUN Creatinine Ratio 19.1 (10-20); Calcium 9.7 mg/dl (8.6-10.3); Creatinine Clr Calc Pharmacy 24.4 ml/min; Est GFR (African American) 23.3 ml/min; Est GFR (Non-African American) 20.1 ml/min; Potassium 4.1 mmol/L (3.5-5.1)
[2024-05-20] MEDS: CLOPIDOGREL BISULFATE 75 MG TAB PO SCH (11:04)
--- NOTE | 2024-05-20 12:08 | Nephrology Progress Note ---
Date of Service May 20, 2024 Assessment & Plan (1) Primary membranous nephropathy with nephrotic syndrome: Plan: biopsy proven MN; on tacrolimus tx. chronic challenges w/ volume mgt given NS and HF hx. -continue tacrolimus > f/u pending trough from 05/20 0830 draw; dose prior to draw was 2100 05/19; for now continue current dose -continue bactrim -continue potassium supplements -continue torsemide at 60 mg daily -needs daily STANDING weight, no bedweight pls when feasible -continue 1.8L FR and <2 gm daily Na diet (2) CKD (chronic kidney disease) stage 4, GFR 15-29 ml/min: Plan: with worsened function on presentation but not JOHN so far. baseline creatinine high 2s but quite labile. presented 05/18 w/ creatinine 3.2, improved to 2.8 this am but may worsen w/ resuming diuretics. not quite meeting JONH criteria given his OP lability but nearing this. --not a dialysis candidate should the need arise per d/w his son Lius his POA on multiple occasions as an OP -defer to cardiology to optimize heart rhythms/cardiac function which may help his renal function (3) Frequent falls: Plan: falls about every 4-6 wks at his facility. some challenges w/ low BP recently prior to admission but not currently. with hx of DVT last fall. -defer to primary service for need for plavix, eliquis >> challenging to balance clinically -check orthostatic VS once he's cleared/able to stand Admission and Anticipated Discharge Date Admission Date: May 18, 2024 Subjective No interval events clinically. Has a sitter now. Denies shortness of breath. Has not been out of bed. Unsure about whether edema changing or not. Denies musculoskeletal pain, shortness of breath, chest discomfort Review of Systems 2 Review of Systems: All systems reviewed & are unremarkable except as noted in Subjective Physical Exam 2 Constitutional: well developed (Dozing/lying in bed on RA), well nourished, + altered mental status, + frail appearing and cooperative; no acute distress Eyes: EOM intact bilaterally ENMT: Ears: no external ear abnormality Nose: no external nose abnormality Mouth: + dry oral mucous membranes Neck: no nuchal rigidity Respiratory: normal respiratory effort Auscultation: + diminished lung sounds (throughout but gurwinder R base) Cardiovascular: Rate/Rhythm: regular rate and regular rhythm Extremities: + edema (2-3+ pedal, 1-2+ ankle) Gastrointestinal (Abdomen): Inspection/Auscultation: normal bowel sounds P ercussion/Palpation: abdomen soft; abdomen nontender Musculoskeletal: Extremities: strength 5/5 throughout Skin: no rashes, warm and dry Neurologic: Oriented to self only. Question visual hallucinations/picking in the air. Moves all extremities no tremor Results & Data Vital Signs (Past 12 Hours) Vital Signs Temp Pulse Pulse Pulse Resp BP Pulse Ox 05/20/24 10:59 36.6 C 79 16 122/81 96 05/20/24 07:03 36.4 C L 89 17 142/80 H 95 05/20/24 07:00 82 05/20/24 05:11 36.6 C 80 16 135/82 95 O2 Del Method 05/20/24 10:59 Room Air 05/20/24 07:03 Room Air 05/20/24 07:00 05/20/24 05:11 Room Air Laboratory Results 05/20/24 08:24 05/20/24 08:24
--- NOTE | 2024-05-20 12:46 | Hospitalist Progress Note ---
Date of Service May 20, 2024 Assessment & Plan (1) Laceration of scalp: (2) Fall: (3) Acute on chronic heart failure with preserved ejection fraction (HFpEF): (4) Elevated troponin: (5) Depression: (6) History of CVA (cerebrovascular accident): (7) CKD (chronic kidney disease): (8) CAD (coronary artery disease): (9) Permanent atrial fibrillation: (10) jail current use of 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: (11) HTN (hypertension): (12) HLD (hyperlipidemia): Plan: This is an 83yo M with PMH CAD, history of dilated ischemic cardiomyopathy with now improved and preserved EF, AICD implantation, mitral insufficiency, permanent atrial fibrillation anticoagulated on Eliquis, history of CVA, history of recurrent falls and nocturnal hypoxia presented to ED from [facility] after unwitnessed fall. Fall Scalp laceration Unwitnessed fall at [facility], scalp laceration stapled Initial CT head with no hemorrhage, mass effect or evidence of acute territorial ischemia by CT criteria Cervical spine CT with no evidence of fracture or subluxation Repeat CT head next AM, - no change- resumed plavix (will need to discuss further about resuming home Eliquis given hx of falls) H/o recurrent falls at personal residential PT/OT evaluation, fall precautions May need to consider discussion of risk vs benefit continued anticoagulation given issues with recurrent falls Permanent atrial fibrillation on anticoagulation H/o AICD, ? abnormal pacer interrogation Pacer reviewed per cards - increased PVC, couplets, triplets and bigeminy which would explain the inability for the patients device to appropriately capture Per cardiology - Toprol increased to 25mg bid, monitor on telemetry. reassess response to increased beta easton overnight and will have device rep check on device Acute on chronic HFpEF Elevated troponin Appears volume overloaded on exam EKG with ventricular paced rhythm Given 60mg IV lasix in ED CXR with cardiomegaly with pulmonary vascular congestion. Small right pleural effusion favoring atelectasis. Findings similar to prior chest CT Current diuretic regimen per Nephrology -Torsemide 80mg M// and Friday, and 60mg / and Friday Nephrology consulted Tacrolimus level pending Continue Torsemide Daily weights, I&Os, repeat 2D echo, low sodium diet Replete electrolytes, keep K > 4.0 and Mag> 2.0. Troponin elevation History of ischemic cardiomyopathy, preserved EF on most recent echo from 10/23 HS troponin 126 -> downtrending to 115 EKG with paced rhythm and no acute EKG changes, known CKD 2D echo obtained -LV normal in size. Apical septum and apical inferior wall are send and dyskinetic. LVEF 45 to 50%. Moderate concentric LVH. LA is moderately dilated. RA is severely dilated. Aortic valve sclerosis moderate, without significant aortic valvular stenosis. There is moderate mitral annular calcification. Mitral valve leaflets are calcified with restricted posterior leaflet mobility. There is moderate to severe mitral regurg. Severe tricuspid regurg. RV systolic pressure is elevated at 50 to 60 mmHg. Continue rosuvastatin, metoprolol CKD IV H/o Primary membranous nephropathy with nephrotic syndrome: History kidney biopsy consistent with membranous glomerulopathy Cr: 3.2 (recent baseline high 2s- low 3s lately) Currently on Bactrim MWF as prophylaxis Continue tacrolimus, level pending Nephrology consulted Permanent atrial fibrillation Chronically anticoagulated on Eliquis for A fib, h/o DVT in 2022- hold for now given extensive bruising, fall. May not resume d/t falls, as above. Continue increased dose of Toprol as above HTN (hypertension) Continue Toprol Chronic anemia Chronic thrombocytopenia H&H, platelets about baseline Monitor with daily CBC Noctural hypoxia Oxygen HS Right thyroid lesion on C-spine CT USG thyroid as an outpatient DVT Prophylaxis: holding Eliquis for now Code status: DNR/DNI per patient PCP: Dr. 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 torsemide Patient is currently laying in bed in NAD, not able to provide much history. Sitter present at the bedside. Currently pt denies any fever, chills, chest pain, shortness of breath or abd. pain Review of Systems Review of Systems: All systems reviewed & are unremarkable except as noted in Subjective Physical Exam Physical Exam: GENERAL: WN/WD elderly chronically ill appearing M in NAD HEENT: No pallor, no icterus. PEERL NECK: No JVD, no neck masses. HEART: S1 and S2 heard. Regular rate and rhythm. RESPIRATORY: No accessory muscle use. No wheezing, bb crackles. ABDOMEN: Soft, bowel sounds present, nontender, no distention. NEURO: Awake, No facial droop. Speech is clear. Obeys simple commands. Moves extremities. EXTREMITIES: 2+ ble edema, no erythema seen. Results & Data Results & Data Vital Signs (Past 12 Hours) Vital Signs Temp Pulse Pulse Pulse Resp BP Pulse Ox 05/20/24 10:59 36.6 C 79 16 122/81 96 05/20/24 07:03 36.4 C L 89 17 142/80 H 95 05/20/24 07:00 82 05/20/24 05:11 36.6 C 80 16 135/82 95 O2 Del Method 05/20/24 10:59 Room Air 05/20/24 07:03 Room Air 05/20/24 07:00 05/20/24 05:11 Room Air Laboratory Results 05/20/24 05/20/24 Range/Units 08:24 05:07 WBC 5.77 (4.8-10.8) K/ul RBC 2.85 L (4.70-6.10) M/uL Hgb 10.2 L (14.0-18.0) g/dl Hct 30.4 L (42.0-52.0) % MCV 106.7 H (80.0-100.0) fL MCH 35.8 H (25.0-34.0) pg MCHC 33.6 (32.0-36.0) g/dL RDW Std Deviation 52.8 H (36.4-46.3) fL RDW Coeff of Tucker 13.5 (11.5-14.5) % Plt Count 94 L (130-400) K/uL MPV 10.9 (9.4-12.4) fL Sodium 142 (136-145) mmol/L Potassium 4.1 (3.5-5.1) mmol/L Chloride 111 H (98-107) mmol/L Carbon Dioxide 26 (21-32) mmol/L Anion Gap 5 (3-11) BUN 53 H (6-23) mg/dl Creatinine 2.77 H D (0.6-1.4) mg/dl Est Cr Clr Drug Dosing 24.4 ml/min Est GFR ( Amer) 23.3 ml/min Est GFR (Non-Af Amer) 20.1 ml/min BUN/Creatinine Ratio 19.1 (10-20) Glucose 113 H (70-99(Fasting)) mg/dl Calcium 9.7 (8.6-10.3) mg/dl Magnesium 2.0 (1.7-2.4) mg/dl Urine Color Yellow Urine Appearance Cloudy A (Clear) Urine pH 6.5 (4.5-7.5) Ur Specific [place]on 1.015 (1.000-1.030) Urine Protein 4+ H (Negative) Urine Glucose (UA) Negative (Negative) Urine Ketones Negative (Negative) Urine Blood 3+ H (Negative) Urine Nitrite Negative (Negative) Urine Bilirubin Negative (Negative) Urine Urobilinogen Negative (Negative) Ur Leukocyte Esterase 3+ H (Negative) Urine WBC (Auto) >50 H (0-5) /hpf Urine RBC (Auto) >20 H (0-2) /hpf U Hyaline Cast (Auto) 11-20 H (0-2) /lpf U Epithel Cells (Auto) 6-10 H (0-2) /hpf Urine Bacteria (Auto) None Seen (None Seen) Tacrolimus Pending Medications Administered Current Inpatient Medications Acetaminophen (Acetaminophen 325 Mg Tab) 650 mg PO Q4H PRN PRN Reason: Fever Or Pain Stop: 06/17/24 15:36 Clopidogrel Bisulfate (Clopidogrel Bisulfate 75 Mg Tab) 75 mg PO DAILY [facility] Stop: 06/18/24 08:59 Last Admin: 05/20/24 11:04 Dose: 75 mg Docusate Sodium (Docusate Sodium 100 Mg Cap) 100 mg PO DAILY [facility] Stop: 06/18/24 08:59 Last Admin: 05/20/24 08:14 Dose: 100 mg Fluoxetine HCl (Fluoxetine Hcl 10 Mg Cap) 10 mg PO DAILY [facility] Stop: 06/18/24 08:59 Last Admin: 05/20/24 08:13 Dose: 10 mg Fluticasone Propionate (Fluticasone Propionate Na Spr 16 Gm Btl) 1 sprays MARIS BID [facility] Stop: 06/17/24 20:59 Last Admin: 05/20/24 08:14 Dose: 1 sprays Guaifenesin (Guaifenesin 200 Mg Tab) 400 mg PO Q6H PRN PRN Reason: congestion/cough Stop: 06/17/24 15:49 Last Admin: 05/19/24 08:26 Dose: 400 mg Loratadine (Loratadine 10 Mg Tab) 10 mg PO DAILY [facility] Stop: 06/18/24 08:59 Last Admin: 05/20/24 08:13 Dose: 10 mg Melatonin (Melatonin 3 Mg Tab) 3 mg PO HS PRN PRN Reason: Insomnia Stop: 06/17/24 15:36 Metoprolol Succinate (Metoprolol Succ 25mg Ext Rel Tab) 25 mg PO BID [facility] Stop: 06/19/24 20:59 Olanzapine (Olanzapine 10 Mg/2.1 Ml Sdv) 2.5 mg IM Q4H PRN PRN Reason: Agitation Stop: 06/19/24 00:28 Last Admin: 05/20/24 01:01 Dose: 2.5 mg Ondansetron HCl (Ondansetron Inj 2 Mg/Ml 2 Ml Vial) 4 mg IV Q6H PRN PRN Reason: Nausea Stop: 06/17/24 15:36 Polyethylene Glycol (Polyethylene (Miralax) 17 Gm Pack) 17 gm PO DAILY PRN PRN Reason: Constipation Stop: 06/17/24 15:36 Potassium Chloride (Potassium Chloride Crtab 20 Meq Tabcr) 20 meq PO TID [facility] Stop: 06/17/24 20:59 Last Admin: 05/20/24 08:12 Dose: 20 meq Rosuvastatin Calcium (Rosuvastatin Calcium 10 Mg Tab) 10 mg PO HS [facility] Stop: 06/17/24 20:59 Last Admin: 05/19/24 20:56 Dose: 10 mg Tacrolimus (Tacrolimus 1 Mg Cap) 2 mg PO BID [facility] Stop: 06/17/24 20:59 Last Admin: 05/20/24 08:14 Dose: 2 mg Torsemide (Torsemide 20 Mg Tab) 60 mg PO QAM [facility] Stop: 06/18/24 14:29 Last Admin: 05/20/24 08:12 Dose: 60 mg Trimethoprim/Sulfamethoxazole (Sulfamethoxazole/Trimethoprim Ds 800/160mg Tab) 1 tab PO MOWEFR [facility] Stop: 06/18/24 08:59 Last Admin: 05/19/24 08:25 Dose: 1 tab Vitamin D (Cholecalciferol 25 Mcg (1000 Units) Tab) 100 mcg PO DAILY [facility] Stop: 06/18/24 08:59 Last Admin: 05/20/24 08:13 Dose: 100 mcg (1) Laceration of scalp Encounter type: initial encounter Qualified Code(s): S01.01XA - Laceration w ithout foreign body of scalp, initial encounter (2) Fall Encounter type: initial encounter Qualified Code(s): W19.XXXA - Unspecified fall, initial encounter
[2024-05-20] MEDS: METOPROLOL SUCC 25MG EXT REL TAB PO SCH (20:09)
[2024-05-20] MEDS: ACETAMINOPHEN 325 MG TAB PO PRN (20:14)
[2024-05-20] MEDS: MELATONIN 3 MG TAB PO PRN (20:15)
[2024-05-21 06:11] LABS: Hematocrit (blood only) 25.6 % (42.0-52.0); Hemoglobin 8.6 g/dl (14.0-18.0); Mean Corpuscular Hemoglobin 35.8 pg (25.0-34.0); Mean Corpuscular Hgb Conc 33.6 g/dL (32.0-36.0); Mean Corpuscular Volume 106.7 fL (80.0-100.0); Mean Platelet Volume 11.1 fL (9.4-12.4); Platelet Count 78 K/uL (130-400); RDW Coefficient of Variation 13.4 % (11.5-14.5); RDW Standard Deviation 52.6 fL (36.4-46.3); White Blood Count 4.84 K/ul (4.8-10.8)
[2024-05-21 06:31] LABS: BUN Creatinine Ratio 17.8 (10-20); Calcium 9.1 mg/dl (8.6-10.3); Creatinine Clr Calc Pharmacy 23.6 ml/min; Est GFR (African American) 22.4 ml/min; Est GFR (Non-African American) 19.3 ml/min; Phosphorus 3.2 mg/dl (2.5-4.9); Potassium 4.5 mmol/L (3.5-5.1)
--- NOTE | 2024-05-21 07:54 | Hospitalist Progress Note ---
Date of Service May 21, 2024 Assessment & Plan (1) Laceration of scalp: (2) Fall: (3) Acute on chronic heart failure with preserved ejection fraction (HFpEF): (4) Elevated troponin: (5) Depression: (6) History of CVA (cerebrovascular accident): (7) CKD (chronic kidney disease): (8) CAD (coronary artery disease): (9) Permanent atrial fibrillation: (10) [facility] current use of 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: (11) HTN (hypertension): (12) HLD (hyperlipidemia): Plan: This is an 83yo M with PMH CAD, history of dilated ischemic cardiomyopathy with now improved and preserved EF, AICD implantation, mitral insufficiency, permanent atrial fibrillation anticoagulated on Eliquis, history of CVA, history of recurrent falls and nocturnal hypoxia presented to ED from [facility] after unwitnessed fall. Fall Scalp laceration Unwitnessed fall at [facility], scalp laceration stapled Initial CT head with no hemorrhage, mass effect or evidence of acute territorial ischemia by CT criteria Cervical spine CT with no evidence of fracture or subluxation Repeat CT head next AM, - no change- resumed plavix (will need to discuss further about resuming home Eliquis given hx of falls) [facility], fall precautions May need to consider discussion of risk vs benefit continued anticoagulation given issues with recurrent falls Permanent atrial fibrillation on anticoagulation H/o AICD, ? abnormal pacer interrogation Pacer reviewed per cards - increased PVC, couplets, triplets and bigeminy which would explain the inability for the patients device to appropriately capture Per cardiology - Toprol increased to 25mg bid, monitor on telemetry. reassess response to increased beta easton overnight and will have device rep check on device Acute on chronic HFpEF Elevated troponin Appears volume overloaded on exam EKG with ventricular paced rhythm Given 60mg IV lasix in ED CXR with cardiomegaly with pulmonary vascular congestion. Small right pleural effusion favoring atelectasis. Findings similar to prior chest CT Current diuretic regimen per Nephrology -Torsemide 80mg M// and Friday, and 60mg / and Friday Nephrology consulted Tacrolimus level pending Continue Torsemide Daily weights, I&Os, repeat 2D echo, low sodium diet Replete electrolytes, keep K > 4.0 and Mag> 2.0. Troponin elevation History of ischemic cardiomyopathy, preserved EF on most recent echo from 10/23 HS troponin 126 -> downtrending to 115 EKG with paced rhythm and no acute EKG changes, known CKD 2D echo obtained -LV normal in size. Apical septum and apical inferior wall are send and dyskinetic. LVEF 45 to 50%. Moderate concentric LVH. LA is moderately dilated. RA is severely dilated. Aortic valve sclerosis moderate, without significant aortic valvular stenosis. There is moderate mitral annular calcification. Mitral valve leaflets are calcified with restricted posterior leaflet mobility. There is moderate to severe mitral regurg. Severe tricuspid regurg. RV systolic pressure is elevated at 50 to 60 mmHg. 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 May not resume d/t falls, as above. Continue increased dose of Toprol as above HTN (hypertension) Continue Toprol Chronic anemia Chronic thrombocytopenia H&H, platelets about baseline Monitor with daily CBC Noctural hypoxia Oxygen HS Right thyroid lesion on C-spine CT USG thyroid as an outpatient DVT Prophylaxis: holding Eliquis for now Code status: DNR/DNI per patient PCP: Dr. Nicolle Claire Dispo: PCU Admission and Anticipated Discharge Date Admission Date: May 18, 2024 Subjective Pt seen in follow up of fall Pt has hx of dementia, mixed systolic and diastolic heart failure with severe mitral tricuspid insufficiency, severe renal insufficiency with underlying memb ranous nephropathy on immunosuppressive therapy Seen by cardiology - Device interrogation reveals frequent ventricular ectopy with reduced biventricular pacing moderate volume overload there with worsening renal insufficiency on exam, increased metoprolol Nephrology also consulted - cont. torsemide Patient is currently laying in bed in NAD, not able to provide much history. Sitter present at the bedside. Currently pt denies any fever, chills, chest pain, shortness of breath or abd. pain Ucultx - probable Enterococcus - starting amoxicillin Review of Systems Review of Systems: All systems reviewed & are unremarkable except as noted in Subjective Physical Exam Physical Exam: GENERAL: WN/WD elderly chronically ill appearing M in NAD HEENT: No pallor, no icterus. PEERL NECK: No JVD, no neck masses. HEART: S1 and S2 heard. Regular rate and rhythm. RESPIRATORY: No accessory muscle use. No wheezing, bb crackles. ABDOMEN: Soft, bowel sounds present, nontender, no distention. NEURO: Awake, No facial droop. Speech is clear. Obeys simple commands. Moves extremities. EXTREMITIES: 1-2+ ble edema (improved), no erythema seen. Results & Data Results & Data Vital Signs (Past 12 Hours) Vital Signs Temp Pulse Pulse Resp BP Pulse Ox O2 Del Method 05/21/24 02:55 36.7 C 77 18 115/72 93 Room Air 05/20/24 22:49 81 Laboratory Results 05/21/24 05/20/24 Range/Units 05:22 08:24 WBC 4.84 5.77 (4.8-10.8) K/ul RBC 2.40 L 2.85 L (4.70-6.10) M/uL Hgb 8.6 L 10.2 L (14.0-18.0) g/dl Hct 25.6 L 30.4 L (42.0-52.0) % MCV 106.7 H 106.7 H (80.0-100.0) fL MCH 35.8 H 35.8 H (25.0-34.0) pg MCHC 33.6 33.6 (32.0-36.0) g/dL RDW Std Deviation 52.6 H 52.8 H (36.4-46.3) fL RDW Coeff of Tucker 13.4 13.5 (11.5-14.5) % Plt Count 78 L 94 L (130-400) K/uL MPV 11.1 10.9 (9.4-12.4) fL Sodium 140 142 (136-145) mmol/L Potassium 4.5 4.1 (3.5-5.1) mmol/L Chloride 111 H 111 H (98-107) mmol/L Carbon Dioxide 24 26 (21-32) mmol/L Anion Gap 5 5 (3-11) BUN 51 H 53 H (6-23) mg/dl Creatinine 2.86 H 2.77 H D (0.6-1.4) mg/dl Est Cr Clr Drug Dosing 23.6 24.4 ml/min Est GFR ( Amer) 22.4 23.3 ml/min Est GFR (Non-Af Amer) 19.3 20.1 ml/min BUN/Creatinine Ratio 17.8 19.1 (10-20) Glucose 92 113 H (70-99(Fasting)) mg/dl Calcium 9.1 9.7 (8.6-10.3) mg/dl Phosphorus 3.2 (2.5-4.9) mg/dl Magnesium 2.0 2.0 (1.7-2.4) mg/dl Tacrolimus Pending Medications Administered Current Inpatient Medications Acetaminophen (Acetaminophen 325 Mg Tab) 650 mg PO Q4H PRN PRN Reason: Fever Or Pain Stop: 06/17/24 15:36 Last Admin: 05/20/24 20:14 Dose: 650 mg Clopidogrel Bisulfate (Clopidogrel Bisulfate 75 Mg Tab) 75 mg PO DAILY [facility] Stop: 06/18/24 08:59 Last Admin: 05/20/24 11:04 Dose: 75 mg Docusate Sodium (Docusate Sodium 100 Mg Cap) 100 mg PO DAILY [facility] Stop: 06/18/24 08:59 Last Admin: 05/20/24 08:14 Dose: 100 mg Fluoxetine HCl (Fluoxetine Hcl 10 Mg Cap) 10 mg PO DAILY [facility] Stop: 06/18/24 08:59 Last Admin: 05/20/24 08:13 Dose: 10 mg Fluticasone Propionate (Fluticasone Propionate Na Spr 16 Gm Btl) 1 sprays MARIS BID [facility] Stop: 06/17/24 20:59 Last Admin: 05/20/24 20:10 Dose: 1 sprays Guaifenesin (Guaifenesin 200 Mg Tab) 400 mg PO Q6H PRN PRN Reason: congestion/cough Stop: 06/17/24 15:49 Last Admin: 05/20/24 20:15 Dose: 400 mg Loratadine (Loratadine 10 Mg Tab) 10 mg PO DAILY [facility] Stop: 06/18/24 08:59 Last Admin: 05/20/24 08:13 Dose: 10 mg Melatonin (Melatonin 3 Mg Tab) 3 mg PO HS PRN PRN Reason: Insomnia Stop: 06/17/24 15:36 Last Admin: 05/20/24 20:15 Dose: 3 mg Metoprolol Succinate (Metoprolol Succ 25mg Ext Rel Tab) 25 mg PO BID [facility] Stop: 06/19/24 20:59 Last Admin: 05/20/24 20:09 Dose: 25 mg Olanzapine (Olanzapine 10 Mg/2.1 Ml Sdv) 2.5 mg IM Q4H PRN PRN Reason: Agitation Stop: 06/19/24 00:28 Last Admin: 05/20/24 01:01 Dose: 2.5 mg Ondansetron HCl (Ondansetron Inj 2 Mg/Ml 2 Ml Vial) 4 mg IV Q6H PRN PRN Reason: Nausea Stop: 06/17/24 15:36 Polyethylene Glycol (Polyethylene (Miralax) 17 Gm Pack) 17 gm PO DAILY PRN PRN Reason: Constipation Stop: 06/17/24 15:36 Potassium Chloride (Potassium Chloride Crtab 20 Meq Tabcr) 20 meq PO TID [facility] Stop: 06/17/24 20:59 Last Admin: 05/20/24 20:09 Dose: 20 meq Rosuvastatin Calcium (Rosuvastatin Calcium 10 Mg Tab) 10 mg PO HS [facility] Stop: 06/17/24 20:59 Last Admin: 05/20/24 20:09 Dose: 10 mg Tacrolimus (Tacrolimus 1 Mg Cap) 2 mg PO BID [facility] Stop: 06/17/24 20:59 Last Admin: 05/20/24 20:09 Dose: 2 mg Torsemide (Torsemide 20 Mg Tab) 60 mg PO QAM [facility] Stop: 06/18/24 14:29 Last Admin: 05/20/24 08:12 Dose: 60 mg Trimethoprim/Sulfamethoxazole (Sulfamethoxazole/Trimethoprim Ds 800/160mg Tab) 1 tab PO MOWEFR [facility] Stop: 06/18/24 08:59 Last Admin: 05/19/24 08:25 Dose: 1 tab Vitamin D (Cholecalciferol 25 Mcg (1000 Units) Tab) 100 mcg PO DAILY [facility] Stop: 06/18/24 08:59 Last Admin: 05/20/24 08:13 Dose: 100 mcg (1) Laceration of scalp Encounter type: initial encounter Qualified Code(s): S01.01XA - Laceration without foreign body of scalp, initial encounter (2) Fall Encounter type: initial encounter Qualified Code(s): W19.XXXA - Unspecified fall, initial encounter
--- NOTE | 2024-05-21 09:18 | Cardiology Progress Note ---
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 Worseing renal function and evidence of volume overload with an "abnormal" device interrogation requesting for cardiology to evaluate. Plan: 1. Ventricular bigeminy: 2. Acute on chronic heart failure with preserved EF 3. s/p BiV dual ICD/Pacemaker 4. Elevated troponin 5. Renal failure -Increased PVC, couplets, triplets and bigeminy which would explain the inability for the patients device to appropriately capture. -Electrolytes stable, worsening renal function. -unable to assess patient's diet due to cognitive/memory deficit; however, he resides at [facility]. -Currently on Metoprolol succinate 12.5mg QD, will increase to 25mg QD -Continue to monitor on telemetry. Will reassess response to increased beta easton overnight and will have device rep check on device tomorrow. -Device: Medtronic Viva Quad [id number], biventricular -Patient demonstrates modest volume overload. Received IV Lasix 60mg x1 dose today. -Current home regimen (set fourth by Nephrology) has been Torsemide 80mg // and Friday, and 60mg / and Friday. -Will hold off on starting a maintenance diuretic dose and reassess renal function in the AM given dose already received today and worsening renal function. -Recommend that Nephrology be involved in this patient's care as they have been helping us to manage his fluid status in the setting of worsening renal function. would appreciate their input. -Daily weights, and strict I&O -Close monitoring of renal function as well as electrolytes with goal serum K > 4.0 and serum Mag> 2.0. -Known chronic elevated troponin in the absence of acute EKG changes, and no symptoms. -Trend troponin to peak. -Obtain echocardiogram to assess overall structure and function 6. Permanent A-fib 7. USP anticoagulation use -No changes. -patient carries a history of A-fib, prior TIA and prior DVT. High risk for thrombo-embolic event; however, need to weigh risk vs benefit of use of anticoagulation. Current home regimen is Eliquis 5mg PO BID. -[id number] score 7. 8. HTN -Well controlled. Continue Metoprolol succinate (increased dose to 25mg QD), diuretics on hold 9. HLD -Continue Crestor 10. Fall 11. Laceration of the scalp -HEAD CT negative -Continued management per primary team. 05/19/2024: -Resting comfortably in bed at time of exam, offers no complaints. -Review of telemetry continues to demonstrate frequent Bigeminy pattern, although asymptomatic and hemodynamically stable. -Continue Toprol xl at 25mg PO today, may consider further titration if needed -[employer] rep to check device today and determine if there are any setting changes for optimization. -Continues with modest volume overload, although showing some improvement. No daily weight for comparison. -1080 fluid deficit reported at this time. -No improvement in renal function. Awaiting and will appreciate Nephrology consultation and recommendations for fluid management -Accurate and strict I&Os needed as well as daily weights. Maintain serum K> 4.0 and Serum Mag of 2.0. -Oral anticoagulation remains on hold by primary team. Family needs to consider risk vs benefit for restarting Eliquis or not given his increased falls risk vs medical comorbidities. CHADS2-VASC score 7. 05/20/2024: -Patient is sleeping with 1:1 sitter present in the room. Awakens to verbal stimuli, but does not answer most questions. -Telemetry reviewed, continues to show episodes of Bigeminy. Increase Toprol xl to 25mg BID today -Continues with modest volume overload, renal function with some improvement. Nephrology now following and has recommended to start torsemide 60 mg PO in AM with close monitoring of I&Os, Daily weights and labs. -Accurate and strict I&Os needed as well as daily weights. Maintain serum K> 4.0 and Serum Mag of 2.0. -Oral anticoagulation remains on hold by primary team. Family needs to consider risk vs benefit for restarting Eliquis or not given his increased falls risk vs medical comorbidities. CHADS2-VASC score 7. 05/21/2024: -Patient is more awake, out of bed to a chair. Continues with confusion which is in part due to his known dementia; however, recent Urine culture is positive and he is being treated for a UTI with Septra DS by primary team. -Telemetry reviewed and shows no bigeminy overnight, Responding well to incr eased dose of Toprol xl. Continue at 25mg twice daily. --Continues with modest volume overload, renal function with some improvement. Nephrology following and has restarted torsemide 60 mg PO QAM with close monitoring of I&Os, Daily weights and labs. -Accurate and strict I&Os needed as well as daily weights. Maintain serum K> 4.0 and Serum Mag of 2.0. -Oral anticoagulation remains on hold by primary team. Family needs to consider risk vs benefit for restarting Eliquis or not given his increased falls risk vs medical comorbidities. CHADS2-VASC score 7. Case has been discussed with Dr. Jean. Further recommendations regarding plan of care as per his assessment. I spent a total of 30 minutes on the date of service in preparation, delivery, documentation of the care provided to the patient excluding any time spent in the performance of separately billed services. EMEKA [facility] Admission and Anticipated Discharge Date Admission Date: May 18, 2024 Supervising Physician Co-Signing Physician Notes I have personally performed a history and physical examination on the patient. I have reviewed the advance practitioner's documentation, and I agree with, and take responsibility for the plan of care. 83-year-old male with acute heart failure with preserved ejection fraction and CKD stage IV. Creatinine continues to trend downward. Fluid balance -1375 cc. Transitioned to torsemide 60 mg daily. Appreciate nephrology input. Patient is not a dialysis candidate. Continue Toprol, clopidogrel, and statin therapy. Cardiology will sign off. Please call with additional concerns/questions. I spent a total of 25 minutes on the date of service in preparation, delivery, and documentation of the care provided to this patient, excluding any time spent in the performance of separately billed services. Subjective 05/21/2024: Patient seen and examined in follow up today. Feeling well, although notably confused. patient knows location, but no other details of his hospitalization. He is sitting out of bed in the chair with a 1:1 sitter. Denies any chest pain, pressure or palpitations. Denies shortness of breath of PND, States that he feels his legs are doing better. Labs, vitals, diagnostics, telemetry and documentation reviewed. Telemetry reviewed showing V-Paced. No significant Bigeminy appreciated as we leach ve on prior reviews during hospitalization. No acute events overnight. +UTI, started on DS by Primary team Review of Systems Review of Systems: All systems reviewed & are unremarkable except as noted in HPI & below (limited due to cognitive status ) Physical Exam Constitutional: well developed, well nourished and + edematous (+2 BLE, noted improvement from yesterday); no acute distress and not ill appearing Neck: normal visual inspection and trachea midline Respiratory: normal respiratory effort; no respiratory distress, no labored breathing, no retractions and no cough Auscultation: lungs clear to auscultation bilaterally; no crackles, no rales, no rhonchi and no wheezes Cardiovascular: Rate/Rhythm: regular rate and regular rhythm (frequent PVC, couplets, triplets and bigeminy,) Heart Sounds: normal S1, normal S2 and + murmur (+II/ systolic ) Vessels: dorsalis pedis pulses present; no JVD Extremities: + edema (+2, noted improvement from yesterday) Skin: + ecchymosis (multiple areas of ecchymos is arms, shoulder, right lower leg) and + erythema (left lower extremity) Trauma: + abrasion (right posterior forearm) and + laceration (scalp, sutured in the ED) Psychiatric: Orientation: alert (drowsy, wakes to verbal stimuli, does not answer questions), oriented to person, oriented to place (oriented to place, person and somewhat to event) and cooperative; + not oriented to time Results & Data Vital Signs (Past 12 Hours) Vital Signs Temp Pulse Pulse Resp BP Pulse Ox O2 Del Method 05/21/24 08:46 36.8 C 80 19 104/79 95 Room Air 05/21/24 02:55 36.7 C 77 18 115/72 93 Room Air 05/20/24 22:49 81 Laboratory Results CBC 05/21/24 Range/Units 05:22 WBC 4.84 (4.8-10.8) K/ul RBC 2.40 L (4.70-6.10) M/uL Hgb 8.6 L (14.0-18.0) g/dl Hct 25.6 L (42.0-52.0) % Plt Count 78 L (130-400) K/uL Comprehensive Metabolic Panel 05/21/24 Range/Units 05:22 Sodium 140 (136-145) mmol/L Potassium 4.5 (3.5-5.1) mmol/L Chloride 111 H (98-107) mmol/L Carbon Dioxide 24 (21-32) mmol/L BUN 51 H (6-23) mg/dl Creatinine 2.86 H (0.6-1.4) mg/dl Glucose 92 (70-99(Fasting)) mg/dl Calcium 9.1 (8.6-10.3) mg/dl Intake and Output 05/20/24 05/21/24 05/21/24 22:59 06:59 14:59 Output Total 550 / 1450 375 / 1450 450 / 450 Balance -550 / -850 -375 / -850 -450 / -450 Output: Urine Amount (Catheter) 550 / 1450 375 / 1450 450 / 450 Soriano/Indwelling 550 / 1450 375 / 1450 450 / 450 Other: Other Intake Source sips Weight 101.9 kg Weight Measurement Method Built in [facility] (10) Fall Encounter type: initial encounter Qualified Code(s): W19.XXXA - Unspecified fall, initial encounter (11) Laceration of scalp Encounter type: initial encounter Qualified Code(s): S01.01XA - Laceration w ithout foreign body of scalp, initial encounter
[2024-05-21] MEDS: AMOXICILLIN 500 MG CAP PO SCH (10:22)
--- NOTE | 2024-05-21 17:57 | Nephrology Progress Note ---
Date of Service May 21, 2024 Assessment & Plan (1) Primary membranous nephropathy with nephrotic syndrome: Plan: biopsy proven MN; on tacrolimus tx. chronic challenges w/ volume mgt given NS and HF hx. -continue tacrolimus > f/u pending trough from 05/20 0830 draw; dose prior to draw was 2100 05/19; for now continue current dose -continue bactrim prophylaxis -continue potassium supplements -continue torsemide at 60 mg daily -needs daily STANDING weight, no bedweight pls when feasible -continue 1.8L FR and <2 gm daily Na diet (2) CKD (chronic kidney disease) stage 4, GFR 15-29 ml/min: Plan: with worsened function on presentation but not JOHN so far. baseline creatinine high 2s but quite labile. presented 05/18 w/ creatinine 3.2, improved to 2.8 then 2.9 this am. not quite meeting JOHN criteria given his OP lability but nearing this. --not a dialysis candidate should the need arise per d/w his son Luis his POA on multiple occasions as an OP -defer to cardiology to optimize heart rhythms/cardiac function which may help his renal function -on therapy for UTI currently > amoxicillin (3) Frequent falls: Plan: falls about every 4-6 wks at his facility. some challenges w/ low BP recently prior to admission but not currently. with hx of DVT last fall. -defer to primary service for need for plavix, eliquis >> challenging to balance clinically -check orthostatic VS daily once he's cleared/able to stand >>>>>monitor for these as cardiology increases metoprolol >> may want to discuss other rhythm control meds less likely to affect balance if availab.e Admission and Anticipated Discharge Date Admission Date: May 18, 2024 Subjective Seen on evening rounds. No interval events clinically. Remains with sitter. Son Luis at bedside. Patient denies pain or shortness of breath Review of Systems 2 Review of Systems: Other (Review of systems limited by patient's cognitive impairment) Physical Exam 2 Constitutional: well developed (Eating ice cream in bed on RA), well nourished, + altered mental status, + frail appearing and cooperative; no acute distress Eyes: EOM intact bilaterally ENMT: Ears: no external ear abnormality Nose: no external nose abnormality Mouth: + dry oral mucous membranes Neck: no nuchal rigidity Respiratory: normal respiratory effort Auscultation: + diminished lung sounds Cardiovascular: Rate/Rhythm: regular rate and regular rhythm Extremities: + edema (1-2+ left ankle and foot) Gastrointestinal (Abdomen): Inspection/Auscultation: normal bowel sounds P ercussion/Palpation: abdomen soft; abdomen nontender Musculoskeletal: Extremities: strength 5/5 throughout Skin: no rashes, warm and dry Neurologic: Moves all extremities, limited but mostly appropriate speech, no tremor Results & Data Vital Signs (Past 12 Hours) Vital Signs Temp Pulse Pulse Resp BP Pulse Ox Pulse Ox 05/21/24 15:53 36.8 C 81 19 126/78 97 05/21/24 15:00 96 05/21/24 14:00 77 05/21/24 12:01 36.5 C 69 17 126/86 96 05/21/24 08:46 36.8 C 80 19 104/79 95 05/21/24 06:30 80 O2 Del Method O2 Del Method 05/21/24 15:53 Room Air 05/21/24 15:00 Room Air 05/21/24 14:00 05/21/24 12:01 Room Air 05/21/24 08:46 Room Air 05/21/24 06:30 Laboratory Results 05/21/24 05:22 05/21/24 05:22
[2024-05-22 07:55] LABS: Hematocrit (blood only) 28.1 % (42.0-52.0); Hemoglobin 9.3 g/dl (14.0-18.0); Mean Corpuscular Hemoglobin 35.5 pg (25.0-34.0); Mean Corpuscular Hgb Conc 33.1 g/dL (32.0-36.0); Mean Corpuscular Volume 107.3 fL (80.0-100.0); Mean Platelet Volume 11.5 fL (9.4-12.4); Platelet Count 95 K/uL (130-400); RDW Coefficient of Variation 13.6 % (11.5-14.5); RDW Standard Deviation 53.4 fL (36.4-46.3); Red Blood Count 2.62 M/uL (4.70-6.10); White Blood Count 5.06 K/ul (4.8-10.8)
[2024-05-22 08:13] LABS: Calcium 9.3 mg/dl (8.6-10.3); Magnesium 2.1 mg/dl (1.7-2.4); Potassium 4.9 mmol/L (3.5-5.1)
[2024-05-22 08:18] LABS: BUN Creatinine Ratio 19.1 (10-20); Creatinine Clr Calc Pharmacy 24.8 ml/min; Est GFR (African American) 23.8 ml/min; Est GFR (Non-African American) 20.5 ml/min; Phosphorus 3.4 mg/dl (2.5-4.9)
--- NOTE | 2024-05-22 09:25 | Hospitalist Progress Note ---
Date of Service May 22, 2024 Assessment & Plan (1) Laceration of scalp: (2) Fall: (3) Acute on chronic heart failure with preserved ejection fraction (HFpEF): (4) Elevated troponin: (5) Depression: (6) History of CVA (cerebrovascular accident): (7) CKD (chronic kidney disease): (8) CAD (coronary artery disease): (9) Permanent atrial fibrillation: (10) [facility] current use of 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: (11) HTN (hypertension): (12) HLD (hyperlipidemia): Plan: This is an 83yo M with PMH CAD, history of dilated ischemic cardiomyopathy with now improved and preserved EF, AICD implantation, mitral insufficiency, permanent atrial fibrillation anticoagulated on Eliquis, history of CVA, history of recurrent falls and nocturnal hypoxia presented to ED from [facility] after unwitnessed fall. Fall Scalp laceration Unwitnessed fall at [facility], scalp laceration stapled Initial CT head with no hemorrhage, mass effect or evidence of acute territorial ischemia by CT criteria Cervical spine CT with no evidence of fracture or subluxation Repeat CT head next AM, - no change- resumed plavix (will need to discuss further about resuming home Eliquis given hx of falls) H/o recurrent falls at personal [facility] PT/OT evaluation, fall precautions May need to consider discussion of risk vs benefit continued anticoagulation given issues with recurrent falls Permanent atrial fibrillation on anticoagulation H/o AICD, ? abnormal pacer interrogation Pacer reviewed per cards - increased PVC, couplets, triplets and bigeminy which would explain the inability for the patients device to appropriately capture Per cardiology - Toprol increased to 25mg bid, monitor on telemetry. reassess response to increased beta easton overnight and will have device rep check on device Acute on chronic HFpEF Elevated troponin Appears volume overloaded on exam EKG with ventricular paced rhythm Given 60mg IV lasix in ED CXR with cardiomegaly with pulmonary vascular congestion. Small right pleural effusion favoring atelectasis. Findings similar to prior chest CT Current diuretic regimen per Nephrology -Torsemide 80mg M// and Friday, and 60mg / and Friday Nephrology consulted Tacrolimus level pending Continue Torsemide Daily weights, I&Os, repeat 2D echo, low sodium diet Replete electrolytes, keep K > 4.0 and Mag> 2.0. Troponin elevation History of ischemic cardiomyopathy, preserved EF on most recent echo from 10/23 HS troponin 126 -> downtrending to 115 EKG with paced rhythm and no acute EKG changes, known CKD 2D echo obtained -LV normal in size. Apical septum and apical inferior wall are send and dyskinetic. LVEF 45 to 50%. Moderate concentric LVH. LA is moderately dilated. RA is severely dilated. Aortic valve sclerosis moderate, without significant aortic valvular stenosis. There is moderate mitral annular calcification. Mitral valve leaflets are calcified with restricted posterior leaflet mobility. There is moderate to severe mitral regurg. Severe tricuspid regurg. RV systolic pressure is elevated at 50 to 60 mmHg. 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 for Enterococcus , cont. amoxicillin Permanent atrial fibrillation Chronically anticoagulated on Eliquis for A fib, h/o DVT in 2022- hold for now given extensive bruising, fall. May not resume d/t falls, as above. Continue increased dose of Toprol as above HTN (hypertension) Continue Toprol Chronic anemia Chronic thrombocytopenia H&H, platelets about baseline Monitor with daily CBC Noctural hypoxia Oxygen HS Right thyroid lesion on C-spine CT USG thyroid as an outpatient DVT Prophylaxis: holding Eliquis for now Code status: DNR/DNI per patient PCP: Dr. Nicolle Claire Dispo: PCU Admission and Anticipated Discharge Date Admission Date: May 18, 2024 Subjective Pt seen in follow up of fall Pt has hx of dementia, mixed systolic and diastolic heart failure with severe mitral tricuspid insufficiency, severe renal insufficiency with underlying membranous nephropathy on immunosuppressive therapy Seen by cardiology - Device interrogation reveals frequent ventricular ectopy with reduced biventricular pacing moderate volume overload there with worsening renal insufficiency on exam, increased metoprolol Nephrology also consulted - cont. torsemide Patient is currently sitting up in chair in NAD, not able to provide much history. Sitter no longer present at the bedside. Currently pt denies any fever, chills, chest pain, shortness of breath or abd. pain Ucultx - positive for Enterococcus - cont. amoxicillin Review of Systems Review of Systems: All systems reviewed & are unremarkable except as noted in Subjective Physical Exam Physical Exam: GENERAL: WN/WD elderly chronically ill appearing M in NAD HEENT: EOMI. PEERL NECK: No JVD, no neck masses. HEART: S1 and S2 heard. Regular rate and rhythm. RESPIRATORY: No accessory muscle use. No wheezing, bb crackles. ABDOMEN: Soft, bowel sounds present, nontender, no distention. NEURO: Awake, No facial droop. Speech is clear. Obeys simple commands. Moves extremities. EXTREMITIES: 1-2+ ble edema (improved), no erythema seen. Results & Data Results & Data Vital Signs (Past 12 Hours) Vital Signs Temp Pulse Pulse Pulse Resp BP Pulse Ox 05/22/24 07:58 36.6 C 75 20 136/93 95 05/22/24 03:35 36.8 C 73 16 132/82 98 05/21/24 23:23 76 05/21/24 22:58 36.6 C 81 16 127/78 96 O2 Del Method 05/22/24 07:58 Room Air 05/22/24 03:35 Room Air 05/21/24 23:23 05/21/24 22:58 Room Air Laboratory Results 05/22/24 Range/Units 06:17 WBC 5.06 (4.8-10.8) K/ul RBC 2.62 L (4.70-6.10) M/uL Hgb 9.3 L (14.0-18.0) g/dl Hct 28.1 L (42.0-52.0) % MCV 107.3 H (80.0-100.0) fL MCH 35.5 H (25.0-34.0) pg MCHC 33.1 (32.0-36.0) g/dL RDW Std Deviation 53.4 H (36.4-46.3) fL RDW Coeff of Tucker 13.6 (11.5-14.5) % Plt Count 95 L (130-400) K/uL MPV 11.5 (9.4-12.4) fL Sodium 141 (136-145) mmol/L Potassium 4.9 (3.5-5.1) mmol/L Chloride 111 H (98-107) mmol/L Carbon Dioxide 25 (21-32) mmol/L Anion Gap 5 (3-11) BUN 52 H (6-23) mg/dl Creatinine 2.72 H (0.6-1.4) mg/dl Est Cr Clr Drug Dosing 24.8 ml/min Est GFR ( Amer) 23.8 ml/min Est GFR (Non-Af Amer) 20.5 ml/min BUN/Creatinine Ratio 19.1 (10-20) Glucose 86 (70-99(Fasting)) mg/dl Calcium 9.3 (8.6-10.3) mg/dl Phosphorus 3.4 (2.5-4.9) mg/dl Magnesium 2.1 (1.7-2.4) mg/dl Medications Administered Current Inpatient Medications Acetaminophen (Acetaminophen 325 Mg Tab) 650 mg PO Q4H PRN PRN Reason: Fever Or Pain Stop: 06/17/24 15:36 Last Admin: 05/20/24 20:14 Dose: 650 mg Amoxicillin (Amoxicillin 500 Mg Cap) 500 mg PO BID [facility] Stop: 05/27/24 21:01 Last Admin: 05/22/24 08:50 Dose: 500 mg Clopidogrel Bisulfate (Clopidogrel Bisulfate 75 Mg Tab) 75 mg PO DAILY [facility] Stop: 06/18/24 08:59 Last Admin: 05/22/24 08:58 Dose: 75 mg Docusate Sodium (Docusate Sodium 100 Mg Cap) 100 mg PO DAILY [facility] Stop: 06/18/24 08:59 Last Admin: 05/22/24 08:58 Dose: 100 mg Fluoxetine HCl (Fluoxetine Hcl 10 Mg Cap) 10 mg PO DAILY [facility] Stop: 06/18/24 08:59 Last Admin: 05/22/24 08:50 Dose: 10 mg Fluticasone Propionate (Fluticasone Propionate Na Spr 16 Gm Btl) 1 sprays MARIS BID [facility] Stop: 06/17/24 20:59 Last Admin: 05/22/24 09:00 Dose: 1 sprays Guaifenesin (Guaifenesin 200 Mg Tab) 400 mg PO Q6H PRN PRN Reason: congestion/cough Stop: 06/17/24 15:49 Last Admin: 05/21/24 09:13 Dose: 400 mg Loratadine (Loratadine 10 Mg Tab) 10 mg PO DAILY [facility] Stop: 06/18/24 08:59 Last Admin: 05/22/24 08:58 Dose: 10 mg Melatonin (Melatonin 3 Mg Tab) 3 mg PO HS PRN PRN Reason: Insomnia Stop: 06/17/24 15:36 Last Admin: 05/21/24 20:11 Dose: 3 mg Metoprolol Succinate (Metoprolol Succ 25mg Ext Rel Tab) 25 mg PO BID [facility] Stop: 06/19/24 20:59 Last Admin: 05/22/24 08:59 Dose: 25 mg Olanzapine (Olanzapine 10 Mg/2.1 Ml Sdv) 2.5 mg IM Q4H PRN PRN Reason: Agitation Stop: 06/19/24 00:28 Last Admin: 05/20/24 01:01 Dose: 2.5 mg Ondansetron HCl (Ondansetron Inj 2 Mg/Ml 2 Ml Vial) 4 mg IV Q6H PRN PRN Reason: Nausea Stop: 06/17/24 15:36 Polyethylene Glycol (Polyethylene (Miralax) 17 Gm Pack) 17 gm PO DAILY PRN PRN Reason: Constipation Stop: 06/17/24 15:36 Potassium Chloride (Potassium Chloride Crtab 20 Meq Tabcr) 20 meq PO TID [facility] Stop: 06/17/24 20:59 Last Admin: 05/22/24 08:50 Dose: 20 meq Rosuvastatin Calcium (Rosuvastatin Calcium 10 Mg Tab) 10 mg PO HS [facility] Stop: 06/17/24 20:59 Last Admin: 05/21/24 20:13 Dose: 10 mg Tacrolimus (Tacrolimus 1 Mg Cap) 2 mg PO BID [facility] Stop: 06/17/24 20:59 Last Admin: 05/22/24 09:00 Dose: 2 mg Torsemide (Torsemide 20 Mg Tab) 60 mg PO QAM [facility] Stop: 06/18/24 14:29 Last Admin: 05/22/24 08:58 Dose: 60 mg Trimethoprim/Sulfamethoxazole (Sulfamethoxazole/Trimethoprim Ds 800/160mg Tab) 1 tab PO MOWEFR [facility] Stop: 06/18/24 08:59 Last Admin: 05/21/24 09:13 Dose: 1 tab Vitamin D (Cholecalciferol 25 Mcg (1000 Units) Tab) 100 mcg PO DAILY [facility] Stop: 06/18/24 08:59 Last Admin: 05/22/24 08:58 Dose: 100 mcg (1) Laceration of scalp Encounter type: initial encounter Qualified Code(s): S01.01XA - Laceration without foreign body of scalp, initial encounter (2) Fall Encounter type: initial encounter Qualified Code(s): W19.XXXA - Unspecified fall, initial encounter
[2024-05-23 07:30] LABS: Hematocrit (blood only) 28.4 % (42.0-52.0); Hemoglobin 9.4 g/dl (14.0-18.0); Mean Corpuscular Hemoglobin 35.2 pg (25.0-34.0); Mean Corpuscular Hgb Conc 33.1 g/dL (32.0-36.0); Mean Corpuscular Volume 106.4 fL (80.0-100.0); Mean Platelet Volume 10.8 fL (9.4-12.4); Platelet Count 93 K/uL (130-400); RDW Coefficient of Variation 13.2 % (11.5-14.5); RDW Standard Deviation 52.3 fL (36.4-46.3); Red Blood Count 2.67 M/uL (4.70-6.10); White Blood Count 4.97 K/ul (4.8-10.8)
[2024-05-23 07:41] LABS: BUN Creatinine Ratio 17.9 (10-20); Calcium 9.4 mg/dl (8.6-10.3); Creatinine Clr Calc Pharmacy 25.2 ml/min; Est GFR (African American) 24.2 ml/min; Est GFR (Non-African American) 20.9 ml/min; Phosphorus 3.7 mg/dl (2.5-4.9); Potassium 4.4 mmol/L (3.5-5.1)
--- NOTE | 2024-05-23 08:51 | Hospitalist Progress Note ---
Date of Service May 23, 2024 Assessment & Plan (1) Laceration of scalp: (2) Fall: (3) Acute on chronic heart failure with preserved ejection fraction (HFpEF): (4) Elevated troponin: (5) Depression: (6) History of CVA (cerebrovascular accident): (7) CKD (chronic kidney disease): (8) CAD (coronary artery disease): (9) Permanent atrial fibrillation: (10) correction current use of 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: (11) HTN (hypertension): (12) HLD (hyperlipidemia): Plan: This is an 83yo M with PMH CAD, history of dilated ischemic cardiomyopathy with now improved and preserved EF, AICD implantation, mitral insufficiency, permanent atrial fibrillation anticoagulated on Eliquis, history of CVA, history of recurrent falls and nocturnal hypoxia presented to ED from [facility] after unwitnessed fall. Fall Scalp laceration Unwitnessed fall at [facility], scalp laceration stapled Initial CT head with no hemorrhage, mass effect or evidence of acute territorial ischemia by CT criteria Cervical spine CT with no evidence of fracture or subluxation Repeat CT head next AM, - no change- resumed plavix (will need to discuss further about resuming home Eliquis given hx of falls) H/o recurrent falls at personal retirement PT/OT evaluation, fall precautions May need to consider discussion of risk vs benefit continued anticoagulation given issues with recurrent falls Permanent atrial fibrillation on anticoagulation H/o AICD, ? abnormal pacer interrogation Pacer reviewed per cards - increased PVC, couplets, triplets and bigeminy which would explain the inability for the patients device to appropriately capture Per cardiology - Toprol increased to 25mg bid, monitor on telemetry. Acute on chronic HFpEF Elevated troponin Appears volume overloaded on exam EKG with ventricular paced rhythm Given 60mg IV lasix in ED CXR with cardiomegaly with pulmonary vascular congestion. Small right pleural effusion favoring atelectasis. Findings similar to prior chest CT Current diuretic regimen per Nephrology -Torsemide 80mg // and Friday, and 60mg / and Friday Nephrology consulted Tacrolimus level pending Continue Torsemide - 60 mg daily Daily weights, I&Os, repeat 2D echo, low sodium diet Replete electrolytes, keep K > 4.0 and Mag> 2.0. Troponin elevation History of ischemic cardiomyopathy, preserved EF on most recent echo from 10/23 HS troponin 126 -> downtrending to 115 EKG with paced rhythm and no acute EKG changes, known CKD 2D echo obtained -LV normal in size. Apical septum and apical inferior wall are send and dyskinetic. LVEF 45 to 50%. Moderate concentric LVH. LA is moderately dilated. RA is severely dilated. Aortic valve sclerosis moderate, without significant aortic valvular stenosis. There is moderate mitral annular calcification. Mitral valve leaflets are calcified with restricted posterior leaflet mobility. There is moderate to severe mitral regurg. Severe tricuspid regurg. RV systolic pressure is elevated at 50 to 60 mmHg. 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 for Enterococcus , cont. amoxicillin Permanent atrial fibrillation Chronically anticoagulated on Eliquis for A fib, h/o DVT in 2022- hold for now given extensive bruising, fall. May not resume d/t falls, as above. Continue increased dose of Toprol as above HTN (hypertension) Continue Toprol Chronic anemia Chronic thrombocytopenia H&H, platelets about baseline Monitor with daily CBC Noctural hypoxia Oxygen HS Right thyroid lesion on C-spine CT USG thyroid as an outpatient DVT Prophylaxis: holding Eliquis for now Code status: DNR/DNI per patient PCP: Dr. Nicolle Claire Dispo: PCU Admission and Anticipated Discharge Date Admission Date: May 18, 2024 Subjective Pt seen in follow up of fall Pt has hx of dementia, mixed systolic and diastolic heart failure with severe mitral tricuspid insufficiency, severe renal insufficiency with underlying membranous nephropathy on immunosuppressive therapy Seen by cardiology - Device interrogation reveals frequent ventricular ectopy with reduced biventricular pacing moderate volume overload there with worsening renal insufficiency on exam, increased metoprolol Nephrology also consulted - cont. torsemide Patient is currently laying in bed in NAD. Sitter no longer present at the bedside. Currently pt denies any fever, chills, chest pain, shortness of breath or abd. pain Ucultx - positive for Enterococcus - cont. amoxicillin Received a message - family inquiring about possible discharge -> contacted this AM for any updates regarding DC - she spoke with staff at [facility], they are coming to do a reassessment on Mr Troy tomorrow, unable to accept back today. She will update the family. Review of Systems Review of Systems: All systems reviewed & are unremarkable except as noted in Subjective Physical Exam Physical Exam: GENERAL: WN/WD elderly chronically ill appearing M in NAD HEENT: EOMI. PEERL NECK: No JVD, no neck masses. HEART: S1 and S2 heard. Regular rate and rhythm. RESPIRATORY: No accessory muscle use. No wheezing, bb crackles. ABDOMEN: Soft, bowel sounds present, nontender, no distention. NEURO: Awake, No facial droop. Speech is clear. Obeys simple commands. Moves extremities. EXTREMITIES: 1-2+ ble edema (improved), no erythema seen. Results & Data Results & Data Vital Signs (Past 12 Hours) Vital Signs Temp Pulse Pulse Resp BP Pulse Ox O2 Del Method 05/23/24 07:47 36.6 C 77 18 119/85 91 Room Air 05/23/24 02:43 36.6 C 80 18 138/92 96 Room Air 05/22/24 23:00 75 05/22/24 22:06 36.5 C 75 18 118/78 95 Room Air Laboratory Results 05/23/24 05/20/24 Range/Units 07:03 08:24 WBC 4.97 (4.8-10.8) K/ul RBC 2.67 L (4.70-6.10) M/uL Hgb 9.4 L (14.0-18.0) g/dl Hct 28.4 L (42.0-52.0) % MCV 106.4 H (80.0-100.0) fL MCH 35.2 H (25.0-34.0) pg MCHC 33.1 (32.0-36.0) g/dL RDW Std Deviation 52.3 H (36.4-46.3) fL RDW Coeff of Tucker 13.2 (11.5-14.5) % Plt Count 93 L (130-400) K/uL MPV 10.8 (9.4-12.4) fL Sodium 142 (136-145) mmol/L Potassium 4.4 (3.5-5.1) mmol/L Chloride 112 H (98-107) mmol/L Carbon Dioxide 27 (21-32) mmol/L Anion Gap 3 (3-11) BUN 48 H (6-23) mg/dl Creatinine 2.68 H (0.6-1.4) mg/dl Est Cr Clr Drug Dosing 25.2 ml/min Est GFR ( Amer) 24.2 ml/min Est GFR (Non-Af Amer) 20.9 ml/min BUN/Creatinine Ratio 17.9 (10-20) Glucose 94 (70-99(Fasting)) mg/dl Calcium 9.4 (8.6-10.3) mg/dl Phosphorus 3.7 (2.5-4.9) mg/dl Magnesium 2.0 (1.7-2.4) mg/dl Tacrolimus 4.7 L mcg/L Medications Administered Current Inpatient Medications Acetaminophen (Acetaminophen 325 Mg Tab) 650 mg PO Q4H PRN PRN Reason: Fever Or Pain Stop: 06/17/24 15:36 Last Admin: 05/20/24 20:14 Dose: 650 mg Amoxicillin (Amoxicillin 500 Mg Cap) [address] [facility] Stop: 05/27/24 21:01 Last Admin: 05/23/24 08:36 Dose: 500 mg Clopidogrel Bisulfate (Clopidogrel Bisulfate 75 Mg Tab) [address] [facility] Stop: 06/18/24 08:59 Last Admin: 05/23/24 08:36 Dose: 75 mg Docusate Sodium (Docusate Sodium 100 Mg Cap) [address] [facility] Stop: 06/18/24 08:59 Last Admin: 05/23/24 08:36 Dose: 100 mg Fluoxetine HCl (Fluoxetine Hcl 10 Mg Cap) [address] [facility] Stop: 06/18/24 08:59 Last Admin: 05/23/24 08:37 Dose: 10 mg Fluticasone Propionate (Fluticasone Propionate Na Spr 16 Gm Btl) [address] [facility] Stop: 06/17/24 20:59 Last Admin: 05/23/24 08:37 Dose: 1 sprays Guaifenesin (Guaifenesin 200 Mg Tab) 400 mg PO Q6H PRN PRN Reason: congestion/cough Stop: 06/17/24 15:49 Last Admin: 05/22/24 20:08 Dose: 400 mg Loratadine (Loratadine 10 Mg Tab) [address] [facility] Stop: 06/18/24 08:59 Last Admin: 05/23/24 08:36 Dose: 10 mg Melatonin (Melatonin 3 Mg Tab) 3 mg PO HS PRN PRN Reason: Insomnia Stop: 06/17/24 15:36 Last Admin: 05/22/24 20:13 Dose: 3 mg Metoprolol Succinate (Metoprolol Succ 25mg Ext Rel Tab) 25 mg PO BID [facility] Stop: 06/19/24 20:59 Last Admin: 05/23/24 08:36 Dose: 25 mg Olanzapine (Olanzapine 10 Mg/2.1 Ml Sdv) 2.5 mg IM Q4H PRN PRN Reason: Agitation Stop: 06/19/24 00:28 Last Admin: 05/20/24 01:01 Dose: 2.5 mg Ondansetron HCl (Ondansetron Inj 2 Mg/Ml 2 Ml Vial) 4 mg IV Q6H PRN PRN Reason: Nausea Stop: 06/17/24 15:36 Polyethylene Glycol (Polyethylene (Miralax) 17 Gm Pack) 17 gm PO DAILY PRN PRN Reason: Constipation Stop: 06/17/24 15:36 Potassium Chloride (Potassium Chloride Crtab 20 Meq Tabcr) 20 meq PO TID [facility] Stop: 06/17/24 20:59 Last Admin: 05/23/24 08:35 Dose: 20 meq Rosuvastatin Calcium (Rosuvastatin Calcium 10 Mg Tab) [address] [facility] Stop: 06/17/24 20:59 Last Admin: 05/22/24 20:09 Dose: 10 mg Tacrolimus (Tacrolimus 1 Mg Cap) 2 mg PO BID [facility] Stop: 06/17/24 20:59 Last Admin: 05/23/24 08:37 Dose: 2 mg Torsemide (Torsemide 20 Mg Tab) [address] [facility] Stop: 06/18/24 14:29 Last Admin: 05/23/24 08:37 Dose: 60 mg Trimethoprim/Sulfamethoxazole (Sulfamethoxazole/Trimethoprim Ds 800/160mg Tab) [address] [facility] Stop: 06/18/24 08:59 Last Admin: 05/21/24 09:13 Dose: 1 tab Vitamin D (Cholecalciferol 25 Mcg (1000 Units) Tab) [address] [facility] Stop: 06/18/24 08:59 Last Admin: 05/23/24 08:36 Dose: 100 mcg (1) Laceration of scalp Encounter type: initial encounter Qualified Code(s): S01.01XA - Laceration without foreign body of scalp, initial encounter (2) Fall Encounter type: initial encounter Qualified Code(s): W19.XXXA - Unspecified fall, initial encounter
[2024-05-23] MEDS: ADVANCED PROBIOTIC 625 MG CAPSULE PO SCH (10:19)
[2024-05-24 07:14] LABS: Hematocrit (blood only) 28.3 % (42.0-52.0); Hemoglobin 9.5 g/dl (14.0-18.0); Mean Corpuscular Hemoglobin 35.7 pg (25.0-34.0); Mean Corpuscular Hgb Conc 33.6 g/dL (32.0-36.0); Mean Corpuscular Volume 106.4 fL (80.0-100.0); Mean Platelet Volume 11.2 fL (9.4-12.4); Platelet Count 93 K/uL (130-400); RDW Coefficient of Variation 13.5 % (11.5-14.5); RDW Standard Deviation 52.9 fL (36.4-46.3); Red Blood Count 2.66 M/uL (4.70-6.10); White Blood Count 4.96 K/ul (4.8-10.8)
[2024-05-24 07:30] LABS: BUN Creatinine Ratio 17.6 (10-20); Calcium 9.6 mg/dl (8.6-10.3); Creatinine Clr Calc Pharmacy 25.3 ml/min; Est GFR (African American) 24.3 ml/min; Magnesium 2.1 mg/dl (1.7-2.4); Phosphorus 3.6 mg/dl (2.5-4.9); Potassium 5.4 mmol/L (3.5-5.1)
--- NOTE | 2024-05-24 08:19 | Nephrology Progress Note ---
Date of Service May 24, 2024 Assessment & Plan (1) Primary membranous nephropathy with nephrotic syndrome: Plan: biopsy proven MN; on tacrolimus tx. chronic challenges w/ volume mgt given NS and HF hx. -continue tacrolimus > tacrolimus trough May 20 appropriate; continue current dose -continue bactrim prophylaxis -for now with high K, held potassium supplements -continue torsemide at 60 mg daily > likely to need higher dose but concern for balance/BP on BB as well -needs daily STANDING weight, no bedweight pls when feasible -continue 1.8L FR and <2 gm daily Na diet nephro d/c recs -cont current bactrim, tacro doses, fluid and sodium limits -modify torsemide dose to 60 mg daily and MWF w/ second dose 60 mg 4 hrs after first dose -d/c on potassium 40 mEq bid NOTE >> above is what I instructed hospitalist earlier today for hospital d/c documentation. However, on further review of chart I worry that extra torsemide dose MWF is too much for this patient. > I placed an encounter in [place] for renal nurses to call pt's facility and son with DAILY torsemide 60 mg only and prn torse 40 mg if wt gain > 3lb / 24 hr or >5lb /48 hr; also gave recs for lab orders and hospital d/c appt. This will be conveyed separately by my renal nurses. (2) CKD (chronic kidney disease) stage 4, GFR 15-29 ml/min: Plan: with worsened function on presentation but not JOHN so far. baseline creatinine high 2s but quite labile. presented 05/18 w/ creatinine 3.2, improved to 2.8 then 2.9 this am. not quite meeting JOHN criteria given his OP lability but nearing this. --not a dialysis candidate should the need arise per d/w his son Luis his POA on multiple occasions as an OP -defer to cardiology to optimize heart rhythms/cardiac function which may help his renal function -on therapy for UTI currently > amoxicillin (3) Frequent falls: Plan: falls about every 4-6 wks at his facility. some challenges w/ low BP recently prior to admission but not currently. with hx of DVT last fall. -defer to primary service for need for plavix, eliquis >> challenging to balance clinically -check orthostatic VS >> order in >>>>>monitor for these as cardiology increases metoprolol >> may want to discuss other rhythm control meds less likely to affect balance if availab.e Admission and Anticipated Discharge Date Admission Date: May 18, 2024 Subjective no interval events; up in chair; denies sob, n/v; feels edema better Review of Systems 2 Review of Systems: All systems reviewed & are unremarkable except as noted in Subjective Physical Exam 2 Constitutional: well developed (sitting up in chair on RA), well nourished, + frail appearing and cooperative; no acute distress and no altered mental status (MS appears baseline) Eyes: EOM intact bilaterally ENMT: Ears: no external ear abnormality Nose: no external nose abnormality Mouth: + dry oral mucous membranes Neck: no nuchal rigidity Respiratory: normal respiratory effort Auscultation: + diminished lung sounds Cardiovascular: Rate/Rhythm: regular rate and regular rhythm Extremities: + edema (1-2+ left ankle and foot) Gastrointestinal (Abdomen): Inspection/Auscultation: normal bowel sounds P ercussion/Palpation: abdomen soft; abdomen nontender Musculoskeletal: Extremities: strength 5/5 throughout Skin: no rashes, warm and dry Results & Data Vital Signs (Past 12 Hours) Vital Signs Temp Pulse Pulse Resp BP Pulse Ox O2 Del Method 05/24/24 07:56 36.7 C 94 H 18 147/99 H 97 Room Air 05/24/24 03:53 36.8 C 76 18 122/71 95 Room Air 05/23/24 23:37 75 05/23/24 22:36 36.5 C 79 18 161/98 H 96 Room Air Laboratory Results 05/24/24 06:09 05/24/24 06:09
--- NOTE | 2024-05-24 13:41 | Discharge Summary ---
Date of Service May 24, 2024 Admission HPI Per Admitting Provider This is an 83yo M with PMH CAD, history of dilated ischemic cardiomyopathy with now improved and preserved EF, AICD implantation, mitral insufficiency, permanent atrial fibrillation anticoagulated on Eliquis, history of CVA, history of recurrent falls and nocturnal hypoxia presented to ED from [facility] after unwitnessed fall. Patient was reportedly getting out of shower and slipped on the ground, striking his head on what he thinks was the shower/side of tub. Denies any loss of consciousness. Staff came in and helped him up, came into ED for further evaluation. Denies any preceding chest pain, palpitations or lightheadedness. Denies any pain right now. Taking all medications as prescribed, administered at facility. Is on anticoagulation for history of atrial fibrillation. Denies any fever, chills, lightheadedness, nausea, vomiting, abdominal pain, dysuria, diarrhea or constipation. Admission Exam Per Admitting Provider General Appearance: WD/WN, vitals as above, NAD, sitting up in bed, pleasant, elderly male, ecchymosis noted on BUE and face Head: normocephalic, + stapled laceration on posterior aspect of scalp Eyes: normal inspection, PERRL, conjunctivae normal, anicteric sclerae ENT: external ear and nose normal, oropharynx normal Neck: normal visual inspection, trachea midline, no thyromegaly Respiratory: normal respiratory effort, coarse breath sounds bilaterally, no wheeze, rales, rhonchi. No accessory muscle use Cardiovascular: regular rate, rhythm, normal peripheral pulses, 2+ BLE edema, pacemaker L chest wall Chest: normal inspection of chest Abdomen/GI: normal bowel sounds, soft, nontender, no hepatosplenomegaly Extremities/Musculoskeletal: no cyanosis or clubbing, extremities motor strength 5/5 Neurologic: PERRL, EOMI, accommodation nl, no face palsy, no dysarthria, CN's II-XI intact bilaterally and moves all extremities Psychiatric: A+Ox3, euthymic affect Skin: no rashes, normal color, warm/dry Principal Diagnosis Fall Acute on chronic heart failure with preserved EF CKD stage 4 Discharge Exam GENERAL: WN/WD elderly chronically ill appearing M in NAD HEENT: EOMI. PEERL NECK: No JVD, no neck masses. HEART: S1 and S2 heard. Regular rate and rhythm. RESPIRATORY: No accessory muscle use. No wheezing, bb crackles. ABDOMEN: Soft, bowel sounds present, nontender, no distention. NEURO: Awake, No facial droop. Speech is clear. Obeys simple commands. Moves extremities. EXTREMITIES: 1-2+ ble edema (improved), no erythema seen. Discharge Data Allergies Allergy/AdvReac Type Severity Reaction Status Date / Time No Known Allergies Allergy Unverified 10/06/23 15:42 Consultations 05/18/24 11:06 ED Decision to Admit Stat 05/18/24 12:13 Consult Cardiology Routine 05/18/24 16:19 Consult Nephrology Routine 05/23/24 09:43 Consult Patient Rep [Consult Patient Services] Routine Ordered Studies 05/18/24 10:14 CT cervical spine wo con Stat FINDINGS: Skeletal structures: The skeletal structures are well mineralized. There is no evidence of fracture or subluxation involving the cervical spine. Vertebral body height and alignment are maintained. Anterior osteophytes are seen throughout. Partial fusion is seen at C5-C6. The odontoid process and lateral masses are intact. The atlantoaxial articulation is preserved noting productive degenerative change. The spinous processes appear intact. There is [id number] multilevel cervical spondylosis. Uncovertebral and facet arthropathy contribute to neural foraminal narrowing at several levels. Intervertebral discs: There is moderate to severe disc space narrowing at all cervical levels between C3-C4 and C6-C7. Central canal: Posterior disc osteophyte complexes are seen at all cervical levels between C3-C4 and C6-C7. This likely contributes to multilevel acquired compromise of the central canal. Soft tissues: The prevertebral and paraspinous soft tissues are within normal limits. Pacemaker leads are noted at the left thoracic inlet. Atherosclerotic calcification is noted in the carotid bulbs. A 5 cm right lobe thyroid lesion is again noted. Calvarium: The visualized calvarium at the skull base appears intact. Brain parenchyma: Partially visualized brain parenchyma at the skull base is within normal limits. Sinuses and mastoids: The visualized paranasal sinuses are clear. The mastoid air cells are well pneumatized. Lung apices: A right pleural effusion is partially visualized. IMPRESSION: 1. There is no evidence of cervical spine fracture or subluxation. 2. Osteopenia and spondylotic change as above. 3. A right pleural effusion is partially visualized. 4. A right lobe thyroid lesion is again noted and similar to prior studies. If not coronary performed, ultrasound is recommended in follow-up. CT head/brain wo con Stat FINDINGS: Brain parenchyma: There is age-related involutional change noting moderate subcortical and periventricular microangiopathic disease. There is no hemorrhage, mass effect, or evidence of acute territorial ischemia by CT criteria. Right temporo-occipital encephalomalacia is unchanged and consistent with a remote insult. There are also chronic infarcts in the left basal ganglia and the left cerebellar hemisphere. Call-white matter differentiation is preserved. No extra-axial fluid collection is seen. Ventricles, sulci, cisterns: Prominent secondary to involutional change. Intracranial vasculature: There is atherosclerotic calcification of the cavernous carotid and vertebral artery. Calvarium: Skeletal structures are osteopenic. No depressed calvarial fracture is seen. Soft tissues: There is a high posterior scalp contusion. Sinuses and mastoids: There is a 3.4 cm retention cyst in the right maxillary antrum. The paranasal sinuses are otherwise clear. The mastoid air cells are well pneumatized. Orbits: The bony orbits are grossly intact. There are bilateral ocular lens implants. IMPRESSION: There is no hemorrhage, mass effect, or evidence of acute territorial ischemia by CT criteria. 05/19/24 08:00 CT head/brain wo con Routine Findings: Areas of decreased attenuation are present in the periventricular and subcortical white matter bilaterally consistent with small vessel ischemic disease. Generalized cerebral atrophy with commensurate enlargement of the ventricles, sulci, and cisterns is also present. There is no acute intracranial hemorrhage or evidence of acute territorial infarction. No shift of the midline structures, mass effect, or extra-axial abnormalities are shown. Atherosclerotic calcifications are present in the intracranial segments of the internal carotid arteries. Right parietal encephalomalacia is unchanged compatible with prior infarct. Mucous retention cysts are seen in the right maxillary sinus. The orbits appear normal. There are no acute fractures of the calvaria. Scalp swelling is seen in the posterior apex. Impression: No acute intracranial hemorrhage or skull fractures. Scalp swelling is seen in the posterior apical soft tissues. 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 Fall Scalp laceration Unwitnessed fall at [facility], scalp laceration stapled Initial CT head with no hemorrhage, mass effect or evidence of acute territorial ischemia by CT criteria Cervical spine CT with no evidence of fracture or subluxation Repeat CT head next AM, - no change- resumed plavix H/o recurrent falls at personal long-term PT/OT evaluation, fall precautions May need to consider discussion of risk vs benefit continued anticoagulation given issues with recurrent falls - discussed with son who clarified that pt has been OFF Eliquis. He is well aware of not continuing Eliquis and its risks and benefits. Permanent atrial fibrillation on anticoagulation H/o AICD, ? abnormal pacer interrogation Pacer reviewed per cards - increased PVC, couplets, triplets and bigeminy which would explain the inability for the patients device to appropriately capture Per cardiology - Toprol increased to 25mg bid, monitor on telemetry. Acute on chronic HFpEF Elevated troponin Appears volume overloaded on exam EKG with ventricular paced rhythm Given 60mg IV lasix in ED CXR with cardiomegaly with pulmonary vascular congestion. Small right pleural effusion favoring atelectasis. Findings similar to prior chest CT Current diuretic regimen per Nephrology -Torsemide 80mg / and Friday, and 60mg / and Friday Nephrology consulted Tacrolimus level pending Continue Torsemide - 60 mg daily Daily weights, I&Os, repeat 2D echo, low sodium diet Replete electrolytes, keep K > 4.0 and Mag> 2.0. Discussed Discharge recommendations w/ Dr. Daugherty - Recommend torsemide 60 mg daily with second dose 60 mg Friday, Friday and Friday four hours after first dose. Recommend potassium current equivalent twice daily Troponin elevation History of ischemic cardiomyopathy, preserved EF on most recent echo from 10/23 HS troponin 126 -> downtrending to 115 EKG with paced rhythm and no acute EKG changes, known CKD 2D echo obtained -LV normal in size. Apical septum and apical inferior wall are send and dyskinetic. LVEF 45 to 50%. Moderate concentric LVH. LA is moderately dilated. RA is severely dilated. Aortic valve sclerosis moderate, without significant aortic valvular stenosis. There is moderate mitral annular calcification. Mitral valve leaflets are calcified with restricted posterior le aflet mobility. There is moderate to severe mitral regurg. Severe tricuspid regurg. RV systolic pressure is elevated at 50 to 60 mmHg. 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 for Enterococcus , cont. amoxicillin Permanent atrial fibrillation Chronically anticoagulated on Eliquis for A fib, h/o DVT in 2022- hold for now given extensive bruising, fall. May not resume d/t falls, as above. Continue increased dose of Toprol as above HTN (hypertension) Continue Toprol Chronic anemia Chronic thrombocytopenia H&H, platelets about baseline Monitor with daily CBC Noctural hypoxia Oxygen HS Right thyroid lesion on C-spine CT USG thyroid as an outpatient Total Time Total Time Spent Total Time Spent (In Minutes): 40 Discharge Plan Discharge Items Patient Disposition: Personal Shelter Reason For Visit: fall Discharge Diagnosis: Fall Acute on chronic heart failure with preserved EF CKD stage 4 Activity: Per Instructions section Non-emergency contact: Primary Care Provider, Account Review Specialist and Retail Service Specialist Call non-emergency contact if: you have any medication questions and your symptoms worsen Follow-up/Referrals: Payam Claire, [Primary Care Provider] - Diet: Heart Healthy Fluids: 1800ml (7 cups) Addtl Attending Provider Instructions: Follow up with your primary care doctor, servomechanism designer and entry writer. Finish antibiotic treatment for UTI. Also recommend to take probiotic in the meantime. Your metoprolol dose was increased by cardiology - take metoprolol 25 mg twice a day. As discussed, do not resume Eliquis (due to risk of major bleeding with falls). Per your servomechanism designer - take torsemide 60 mg daily with second dose 60 mg Friday, Friday and Friday four hours after first dose. Take potassium twice a day instead of three times a day. Pending Studies at Discharge: No Stand-Alone Forms: My [employer], Smoking Cessation Skilled Items Patient informed of condition?: Yes DNR: Yes Discharge Level of Care: Other Communicable Disease: No Discharge Prognosis: Stable Lines: None Urinary Catheter: No Medications and DC Order Prescriptions: New amoxicillin 500 mg Capsule 500 mg PO BID 4 Days Qty: 8 0RF metoprolol succinate 25 mg Tablet Extended Release 24 Hr 25 mg PO BID Qty: 60 0RF Advanced Probiotic 625 mg (10 billion cell) Capsule 1 cap PO DAILY Qty: 7 0RF torsemide 60 mg tablet 60 mg PO DAILY Qty: 30 0RF Continued acetaminophen [Tylenol Extra Strength] 500 mg Tablet 1,000 mg PO BID docusate sodium [Colace] 100 mg Capsule 100 mg PO DAILY loratadine 10 mg Tablet 10 mg PO DAILY clopidogrel 75 mg tablet 75 mg PO DAILY fluoxetine 10 mg capsule 10 mg PO DAILY fluticasone propionate 50 mcg/actuation spray,suspension 1 spray INTRANASAL BID nitroglycerin 0.4 mg tablet, sublingual 0.4 mg sublingual UD PRN (Reason: Chest Pain) Rx Instructions: 1 tab under tongue every 5 min for 3 doses as needed for chest pain,if no relief call ketoconazole 2 % cream 1 applic TOPICAL BID PRN (Reason: flares) Rx Instructions: apply to behind ears as needed for seborrheic dernatitis flares rosuvastatin 10 mg tablet 10 mg PO HS cholecalciferol (vitamin D3) [Vitamin D3] 50 mcg (2,000 unit) Tablet 4,000 unit PO DAILY acetaminophen 325 mg Tablet 650 mg PO Q4H MDD 3g/24hr PRN (Reason: Fever Or Pain) melatonin 3 mg Tablet 3 mg PO HS PRN (Reason: Insomnia) guaifenesin 400 mg Tablet 400 mg PO Q6H PRN (Reason: congestion/cough) ketoconazole 2 % Shampoo 1 ea TOPICAL 3XWK Rx Instructions: apply topically to scalp and behind ears 2-3 times per week. leave on 3-5 minutes before rinsing sulfamethoxazole-trimethoprim 800-160 mg tablet 1 tab PO MOWEFR torsemide 20 mg Tablet 40 mg PO DAILY PRN (Reason: weight gain >3lbs ) tacrolimus 1 mg Capsule 2 mg PO BID Changed potassium chloride 20 mEq tablet,ER particles/crystals 20 meq PO BID Qty: 0 0RF torsemide 20 mg tablet See Rx Instructions .ROUTE .COMPLEX Qty: 20 0RF Rx Instructions: Take 60mg by mouth at 1:00pm on Friday/Friday/Friday. Discontinued Eliquis 5 mg tablet 5 mg PO BID metoprolol succinate 25 mg tablet extended release 24 hr 12.5 mg PO HS Discharge Orders: Discharge Order (Routine); Ordered 05/24/24 Ordered By: Parish Monk Admission Data Admit Date/Time: 05/18/24 12:13 Attending Provider: Parish Monk Admit Provider: Isabelle Pineda Primary Care Provider: Payam Claire Other Providers: Isabelle Pineda; Deondre Cat; Cameron Martinez Other Interventions: Discharge Summary Assessment (RN) Last Done: 05/24/24 12:39
== END 2024-05-24 14:28 | disposition home or self-care (01) | DRG 291 ==
LOC: ED 10:06 → SUATTDRO 12:13 → 2E 12:13